=== PATIENT | female | born 1970 | race Caucasian/White ===

== ENCOUNTER 2023-08-12 22:46 | Inpatient (IN) | payer MEDICAID, SELFPAY ==
[2023-08-12 22:29] VITALS: BP 119/64; PULSE 124; RESP 20; O2SAT 97; BMI 38.9
[2023-08-12 22:30] VITALS: BP 103/55; PULSE 124; RESP 20; O2SAT 96
[2023-08-12 22:45] VITALS: BP 106/58; PULSE 125; RESP 23; TEMP 37.1; O2SAT 95
--- NOTE | 2023-08-12 22:57 | HP.PCM.HOS_ITS ---
HPI - General General Date of Admission: 08/12/23 Date of Service: 08/12/23 Chief Complaint: Unable to urinate HPI Narrative YOON ANGLIN, is a 53 F with a significant history of hypertension; diabetes; tobacco abuse and left pyelonephritis 2 months ago who presented to [facility] because she was unable to urinate. Patient reports that a day before presentation to outside hospital she was unable to urinate and her last time she urinated prior to going to [facility] was on 08/11/2023 at about 7 AM. At [facility] an indwelling Mitchell catheter was placed. Urinalysis reportedly was abnormal. Imaging showed left pyonephritis. Associated with patient's symptoms is nausea and chills on 08/10/2023. Further patient reports anorexia. Patient reported being admitted at [facility] 2 months ago for left pyelonephritis. Reportedly patient is a history of ESBL UTI. Patient was diagnosed with sepsis secondary to UTI; acute pyelonephritis and incidental finding of a porcelain gallbladder. Lactic acid at outside hospital was 6.3 and after hydration it went to 6.4. Reportedly his lactic acid dropped into the fives before he was transported from [facility] ED. [facility] Medical History Arthritis Asthma Atypical chest pain Chronic back pain Chronic headaches Depression Diabetes Hypertension Left knee pain Neuropathy Obesity Psoriasis Psoriatic arthritis Right knee DJD Spinal stenosis Home Medications albuterol sulfate 2.5 mg/3 mL (0.083 %) solution for nebulization 2.5 mg inhalation Q4H PRN 07/12/22 [History Last Taken Unknown] albuterol sulfate 90 mcg/actuation aerosol inhaler 2 puff inhalation Q6H PRN asthma 07/12/22 [History Last Taken Unknown] cyclobenzaprine 10 mg tablet 10 mg PO TID PRN 07/12/22 [History Last Taken Unknown] gabapentin 600 mg tablet 600 mg PO BID back pain 07/12/22 [History Last Taken 08/12/23 21:00] hydrocodone 7.5 mg-acetaminophen 325 mg tablet 1 tab PO Q6H PRN back pain 07/12/22 [History Last Taken 08/12/23 21:00] metformin 500 mg tablet 500 mg PO BID diabetes 07/12/22 [History Last Taken Unknown] metoprolol tartrate 25 mg tablet 25 mg PO PRN high blood pressure 07/12/22 [History Last Taken Unknown] insulin glargine 100 unit/mL (3 mL) subcutaneous pen (Lantus Solostar U-100 Insulin) 20 unit subcut QPM diabetes 05/28/23 [History Last Taken Unknown] omeprazole 20 mg tablet,delayed release 20 mg PO BID PRN 05/28/23 [History Last Taken Unknown] lisinopril 10 mg tablet 10 mg PO DAILY blood pressure 08/12/23 [History Last Taken Unknown] loratadine 10 mg tablet 10 mg PO DAILY PRN allergies 08/12/23 [History Last Taken Unknown] Allergy/AdvReac Type Severity Reaction Status Date / Time coconut Allergy Severe Anaphylaxis Verified 05/28/23 10:59 erythromycin base Allergy Intermediate Other Verified 05/28/23 10:59 sulfamethoxazole Allergy Intermediate Other Verified 05/28/23 10:59 codeine Allergy Unknown unknown Verified 05/28/23 10:59 epinephrine Allergy Unknown unknown Verified 05/28/23 10:59 [From Primatene Mist] Family History Father CAD (coronary artery disease) Myocardial infarction, Onset Age: 62 Other Arthritis CVA (cerebral vascular accident) Cancer Hypertension Surgical History History of section Hx of tubal ligation Social History household members: spouse Smoking Status: Current every day smoker tobacco type: cigarettes alcohol intake: current alcohol intake frequency: holidays/special occasions only substance use type: does not use caffeine: Yes Type: coffee Number of servings: 1 ROS ROS Narrative Pertinent positives and pertinent negatives as noted in HPI. All other systems were reviewed and are negative Vital Signs Vital Signs Vital Signs: 08/12/23 22:29 08/12/23 22:30 08/12/23 22:45 Temperature 98.7 F Temperature Source Oral Pulse Rate 124 H 124 H 125 H Respiratory Rate 20 H 20 H 23 H Blood Pressure 119/64 103/55 L 106/58 L Blood Pressure Mean 82 71 74 Blood Pressure Source Monitor Monitor Monitor Blood Pressure Position Semi-Fowlers Semi-Fowlers Semi-Fowlers Blood Pressure Location Right Arm Right Arm Right Arm Pulse Ox 97 96 95 Oxygen Delivery Method Room Air Room Air Room Air Weight Weight: 116.2 kg Body Mass Index (BMI) 38.9 Physical Exam Narrative Physical exam: General: Well-nourished, well-developed. Head: Normocephalic, atraumatic, no tenderness Eyes: Vision is grossly intact. EOMI ENT, no trauma, moist mucous membranes, no rhinorrhea Neck: Nontender, No thyromegaly. CVS: Regular rate and rhythm. S1-S2 present. No murmur, gallop or rub. Respiratory : clear to auscultation bilaterally, chest wall nontender Abdomen: Soft, nontender, nondistended, normal bowel sounds, no masses : Deferred Back: Nontender, no CVA tenderness, no midline spinal tenderness, deformities, step-offs Extremities: Nontender full range of motion, no trauma Skin: Normal color, no trauma, abrasions Neuro: Alert, oriented, cranial nerves II through XII grossly intact. Psychiatry: Normal mood. Normal affect. Not depressed. Not anxious. Assessment & Plan Assessment/Plan (1) Septic shock: PLAN: Plan Septic shock secondary to acute pyelonephritis The patient presented with sepsis due to (infection) with acute sepsis related organ dysfunction as evidenced by (organ dysfunction/s). SIRS criteria: Respiratory rate of more than 20 on admission to the ICU; heart rate more than 90. Lactic acid of 6.3 at outside hospital which increased 6.4. Abnormal urinalysis at the outside hospital. CT of abdomen and pelvis at outside hospital with acute left pyonephritis. Received Merrem at outside hospital. Merrem will be continued for patient history of ESBL E. coli. We will trend CBC and CMP. organ dysfunction: Lactic acidosis with lactic acid of more than 4 which qualifies for septic shock. Creatinine more than 2 or urine output less than 0.5 mL/kg/h for 2 hours Blood culture was obtained at outside hospital, follow. BREONNA Creatinine on presentation at [facility] ED 3.91. Not enough information to determine whether patient has a history of CKD. Review of community records show that on 06/15/2023 patient creatinine was 0.71; on 06/14/2023 creatinine was 1.46; on 06/13/2023 creatinine was 1.89. Received normal fluid bolus at outside hospital ED. With septic shock we will give additional 1 L normal saline bolus to complete 30 MLS per kilogram IV fluids per septic shock protocol. Avoid nephrotoxic's. Trend CMP. History of hypertension Patient with hypertension on presentation. Trend blood pressures hold home blood pressure medication Diabetes mellitus with polyneuropathy Gabapentin continued. Blood glucose elevated at outside hospital. Long-acting insulin continued. Continue correction scale insulin ordered. Tobacco abuse Counseled DVT prophylaxis: Subcu heparin ordered Time spent in the patient's overall evaluation,decision-making process, review of diagnostic data, adjustment of management, discussion with other providers, nursing and ancillary staff involved in patient's care documentation, 72 minutes. Charges/Coding Visit Charges Inpatient E&M: 64383 Init Hosp L3
[2023-08-12 23:00] VITALS: BP 93/53; PULSE 124; RESP 24; TEMP 37.1; O2SAT 96
--- NOTE | 2023-08-12 23:03 | NURSING ---
Pt qualifies for fluid resuscitation per sepsis screen/checklist. Per report, pt received 2 L NS and 1 L LR @ [facility] ED. Dr. Hernandez to order additional fluid bolus to meet goal for pt's weight and d/t current BP of 93/53. notified of last lactic acid result at [place] of 5.1 prior to transport. Blood cultures have been drawn at [place].
[2023-08-12 23:15] VITALS: BP 91/54; PULSE 121; RESP 20; O2SAT 95
[2023-08-12] MEDS: 0.9% Normal Saline (1000mL) 1,000 ML 999 ML IV (23:23)
[2023-08-12 23:30] VITALS: BP 95/74; PULSE 123; RESP 18; O2SAT 94
[2023-08-12] MEDS: 0.9% Normal Saline (1000mL) 1,000 ML 75 ML IV (23:37)
[2023-08-12] MEDS: 0.9% Saline Lock 10 ML Syringe IV (23:37)
[2023-08-13] VITALS (21 sets, daily range): BP systolic 91–147; BP diastolic 42–95; PULSE 110–121; RESP 14–24; TEMP 36.1–37.8; O2SAT 93–96; BMI 39.5
[2023-08-13 03:26] LABS: Absolute Lymphocyte Count 0.81 X10^3/uL (0.83-4.51); Absolute Neutrophil Count 10.9 X10^3/uL (2.0-7.7); Basophil# 0.09 X10^3/uL; Basophil% 0.7 % (0-1); Eosinophil# 0.07 X10^3/uL; Eosinophils% 0.5 % (0-5); Hemoglobin 9.9 g/dL (12.0-15.0); Lymphocyte # 0.81 X10^3/ul (0.83-4.51); Lymphocyte % 6.1 % (19-41); Mean Corp Hgb Conc 31.9 g/dL (32-36); Mean Corpuscular Hgb 28.1 pg (27.0-32.0); Mean Corpuscular Volume 88.1 fL (81-99); Mean Platelet Vol. 11.2 fl (6.2-12.0); Monocyte# 1.04 X10^3/uL; Monocyte% 7.8 % (0-10); NRBC Flagged by Analyzer 0 % (0-5); Neutrophil # 10.89 X10^3/uL (2.7-7.7); Neutrophil % 81.7 % (47-70); POSITIVE COUNT YES; POSITIVE MORPHOLOGY YES; Platelet Count 76 K/mm3 (150-450); RBC Distribution Width CV 14.8 % (11.6-14.6); RBC Distribution Width SD 47.7 fl (35.1-43.9); Red Blood Count 3.52 M/mm3 (4.2-5.4); White Blood Count 13.3 K/mm3 (4.4-11.0)
[2023-08-13 03:31] LABS: Differential Indicated SCAN CRITERIA MET
[2023-08-13 03:40] LABS: ALB/GLOB Ratio 0.4 RATIO (0.9-2.4); AST(SGOT) 19 U/L (15-37); Alanine Aminotransfer ALT/SGPT 11 U/L (13-56); Alkaline Phosphatase 129 U/L (45-117); Anion Gap 11 (5-15); BUN 33 mg/dL (7-18); BUN/Creat Ratio 8.8 RATIO (10-20); Calcium,Total 7.9 mg/dL (8.5-10.1); Chloride 98 mmol/L (98-107); Creatinine, Serum 3.75 mg/dL (0.55-1.02); EST Glomerular Filtration Rate 13 mL/min (>60); Est Glom Filt Rate - Afr Amer 16 mL/min (>60); Globulin 5.4 g/dL (2.2-4.2); Glucose 144 mg/dL (74-106); Potassium 5.1 mmol/L (3.5-5.1); Protein, Total 7.4 g/dL (6.4-8.2); Sodium Level 126 mmol/L (136-145)
[2023-08-13] MEDS: Albuterol Sulfate 8 gm Inhaler (60 puffs) 2 PUFF INHALATION ×4 (03:45→17:38)
[2023-08-13 04:56] LABS: Differential Comment SCANNED
--- NOTE | 2023-08-13 06:55 | CON.PCM.CC_ITS ---
Assessment & Plan Assessment/Plan (1) Septic shock: (2) Diabetes: QUALIFIERS: Diabetes mellitus type: type 2 Diabetes mellitus care home insulin use: with terminal clerk use Diabetes mellitus complication status: with kidney complications Diabetes mellitus complication detail: with other kidney complication Qualified Code(s): E11.29 - Type 2 diabetes mellitus with other diabetic kidney complication; Z79.4 - USP (current) use of insulin (3) Cirrhosis of liver: QUALIFIERS: Hepatic cirrhosis type: unspecified hepatic cirrhosis Ascites presence: without ascites Qualified Code(s): K74.60 - Unspecified cirrhosis of liver PLAN: Plan RECOMMENDATIONS: 1. Continue meropenem pending culture results 2. Initiate contact precautions given previous ESBL 3. Obtain acute hepatitis panel, abdominal ultrasound 4. Consider nephrology consult if creatinine not improving in the next 24 hours 5. Hold heparin given thrombocytopenia 6. Possible transfer out of the intensive care unit later today if blood pressures remain stable IMPRESSIONS: 1. Septic shock secondary to acute pyelonephritis Patient with recent ESBL UTI and normal renal function. Patient presents with possible postobstructive findings with an inability urinate for 24 hours and findings consistent with UTI. Cultures are currently at the outside facility. Patient has been fluid responsive to this point. No pressors have been required. The patient remains relatively stable, could consider transfer out of the intensive care unit this afternoon. Patient should be in contact precautions until ESBL status can be verified. 2. Acute kidney injury secondary to problem #1 Patient with both postobstructive and prerenal etiology suggested by history and presentation. Patient did have a creatinine of 0.72 months ago. Patient's BUN to creatinine ratio suggests intrinsic dysfunction. If not improving in the next 24 hours, would consider nephrology consult. Agree with holding patient's BRIGHT inhibitor. Patient is on appropriate antibiotics. There is no indication for renal replacement therapy at this time, but there is some concern for possible hepatorenal syndrome. 3. Possible new cirrhosis Outside imaging is suggestive of cirrhotic changes of the liver. Patient does have an elevated INR and thrombocytopenia. Will order an acute hepatitis panel and right upper quadrant ultrasound. Could consider a GI consult pending the results. Patient is not showing any signs of variceal bleeding at this time, but hemoglobin is on the lower side. Patient may have an element of [place] 4. Diabetes mellitus with complications Patient with neuropathic pain previously on gabapentin. We will need to watch this closely as patient does have significant renal dysfunction at this time. Patient's long-acting insulin has been continued, but sliding scale will be necessary as p.o. intake may be variable. Blood sugars are appropriate at this time. 5. Tobacco abuse:/Obesity/poor insight Complicates care, management, recovery and prognosis. Patient counseled on smoking cessation, but appears to be precontemplative. Patient would benefit from weight loss. Could consider outpatient evaluation for obstructive sleep apnea, especially given patient's use of narcotics and gabapentin. HPI Consult Data Date of Consult: 08/13/23 HPI Narrative Reason for Consultation: Sepsis HPI Narrative: YOON ANGLIN is a 53 F, with past medical history listed below, who presents to [facility] on 08/12/2023 after presenting to [facility] with an inability to urinate. Patient states that she was recently hospitalized at [facility] 2 months ago secondary to a urinary tract infection. Patient states that she went home and was doing okay. Patient did not have any issues with urination previously. On presentation to the outside ER, patient did have a Mitchell catheter placed showing a highly abnormal urinalysis. Imaging had shown a left pyelonephritis along with cirrhosis and a porcelain gallbladder. Outside documentation is suggestive that the patient had an ESBL E. coli UTI 2 months ago. At the outside emergency department, patient had a lactate of 6.3 that did not respond to fluids. Patient did not have to be initiated on pressors. Patient was admitted to the intensive care unit at [facility]. Patient reports overall she feels subjectively slightly improved. Patient is reporting some leg discomfort described as cramps. Patient is not reporting any abdominal pain. Patient has not had any bleeding complications such as melena, hematochezia, epistaxis or hemoptysis. Patient does report a history of asthma and I believe she uses a as needed albuterol with no maintenance inhaler. Patient is a relatively poor historian. Patient is unaware of any previous issues with renal dysfunction or cirrhosis. Patient is not endorsing a significant alcohol intake, but does smoke on a regular basis. Patient is not aware of any previous diagnosis of sleep apnea. Review of community records show patient did have a normal creatinine in May of 0.71. There does not appear to be any discussion of previous cirrhosis. Review of systems otherwise negative from a constitutional, HEENT, respiratory, cardiovascular, GI, genitourinary, musculoskeletal, skin, neurologic, psychiatric and hematologic system unless stated above. [facility] Medical History Arthritis Asthma Atypical chest pain Chronic back pain Chronic headaches Depression Diabetes Hypertension Left knee pain Neuropathy Obesity Psoriasis Psoriatic arthritis Right knee DJD Spinal stenosis Home Medications albuterol sulfate 2.5 mg/3 mL (0.083 %) solution for nebulization 2.5 mg inhalation Q4H PRN 07/12/22 [History Last Taken Unknown] albuterol sulfate 90 mcg/actuation aerosol inhaler 2 puff inhalation Q6H PRN asthma 07/12/22 [History Last Taken Unknown] cyclobenzaprine 10 mg tablet 10 mg PO TID PRN 07/12/22 [History Last Taken Unknown] gabapentin 600 mg tablet 600 mg PO BID back pain 07/12/22 [History Last Taken 08/12/23 21:00] hydrocodone 7.5 mg-acetaminophen 325 mg tablet 1 tab PO Q6H PRN back pain 07/12/22 [History Last Taken 08/12/23 21:00] metformin 500 mg tablet 500 mg PO BID diabetes 07/12/22 [History Last Taken Unknown] metoprolol tartrate 25 mg tablet 25 mg PO PRN high blood pressure 07/12/22 [History Last Taken Unknown] insulin glargine 100 unit/mL (3 mL) subcutaneous pen (Lantus Solostar U-100 Insulin) 20 unit subcut QPM diabetes 05/28/23 [History Last Taken Unknown] omeprazole 20 mg tablet,delayed release 20 mg PO BID PRN 05/28/23 [History Last Taken Unknown] lisinopril 10 mg tablet 10 mg PO DAILY blood pressure 08/12/23 [History Last Taken Unknown] loratadine 10 mg tablet 10 mg PO DAILY PRN allergies 08/12/23 [History Last Taken Unknown] Allergy/AdvReac Type Severity Reaction Status Date / Time coconut Allergy Severe Anaphylaxis Verified 05/28/23 10:59 erythromycin base Allergy Intermediate Other Verified 05/28/23 10:59 sulfamethoxazole Allergy Intermediate Other Verified 05/28/23 10:59 codeine Allergy Unknown unknown Verified 05/28/23 10:59 epinephrine Allergy Unknown unknown Verified 05/28/23 10:59 [From Primatene Mist] Family History Father CAD (coronary artery disease) Myocardial infarction, Onset Age: 62 Other Arthritis CVA (cerebral vascular accident) Cancer Hypertension Surgical History History of section Hx of tubal ligation Social History household members: spouse Smoking Status: Current every day smoker tobacco type: cigarettes alcohol intake: current alcohol intake frequency: holidays/special occasions only substance use type: does not use caffeine: Yes Type: coffee Number of servings: 1 ROS ROS Narrative See HPI Physical Exam Const alert, oriented x3 and no apparent distress Constitutional Narrative: No conversational dyspnea. Morbidly obese. General Appearance: cooperative and well developed HEENT normocephalic, head/scalp atraumatic and moist oral mucous membranes Eyes PERRL, EOMs intact bilaterally and conjunctivae normal Neck full ROM and no lymphadenopathy Chest inspection of chest normal Resp normal respiratory effort and no use of accessory muscles Effort and Inspection: able to speak in complete sentences Auscultation: clear to auscultation bilaterally; Negative for rales, rhonchi or wheezes Cardio regular rhythm, S1 normal heart sound, S2 normal heart sound, no murmurs, no rub and no gallops Rate: tachycardic GI normal to inspection, nondistended, normoactive bowel sounds, soft to palpation and non-tender GI Narrative: No suprapubic tenderness no CVA tenderness Extremity General Extremity: edema; Negative for clubbing Skin no rashes or lesions noted Neuro oriented x3, CN's II-XII intact bilaterally, moves all extremities and no focal motor deficits Psych cooperative and affect normal Medical Records Data Attestation: I reviewed the patient's medical records Lab / Micro Data Attestation: I reviewed the patient's lab results. 08/13/23 03:09 08/13/23 03:09 Labs: Laboratory Results - last 24 hr 08/13/23 03:09: WBC 13.3 H, RBC 3.52 L, Hgb 9.9 L, Hct 31.0 L, MCV 88.1, MCH 28.1, MCHC 31.9 L, RDW Std Deviation 47.7 H, RDW Coeff of Frannie 14.8 H, Plt Count 76 L, MPV 11.2, Immature Gran % (Auto) 3.200 H, Neut % (Auto) 81.7 H, Lymph % (Auto) 6.1 L, [place] % (Auto) 7.8, Eos % (Auto) 0.5, Baso % (Auto) 0.7, Absolute Neuts (auto) 10.9 H, Absolute Lymphs (auto) 0.81 L, Nucleated RBC % 0, Differential Comment SCANNED, Sodium 126 L, Potassium 5.1, Chloride 98, Carbon Dioxide 17.0 L, Anion Gap 11, BUN 33 H, Creatinine 3.75 H, Estim Creat Clear Calc 17.10, Est GFR (MDRD) Af Amer 16 L, Est GFR (MDRD) Non-Af 13 L, BUN/Cre atinine Ratio 8.8 L, Glucose 144 H, Lactic Acid 5.0 H*, Calcium 7.9 L, Total Bilirubin 1.20 H, AST 19, ALT 11 L, Alkaline Phosphatase 129 H, Total Protein 7.4, Albumin 2.0 L, Globulin 5.4 H, Albumin/Globulin Ratio 0.4 L Rhythm Strip Rhythm Strip: Sinus Tach Rate: 110 Ectopy: None Charges/Coding Visit Charges Inpatient E&M: 67457 Init Hosp L3
--- NOTE | 2023-08-13 07:06 | US_ITS ---
STUDY: ABDOMINAL ULTRASOUND REASON FOR EXAM: Female, 53 years old. Porcelain gallbladder and possible cirrhosis TECHNIQUE: Transabdominal ultrasound was performed with real-time and static anand scale imaging. TECHNICAL QUALITY: Limited. Examination limited due to obesity. COMPARISON: None. FINDINGS: Liver: The liver is enlarged and measures 24 cm. There is a heterogeneous echogenicity of the liver. The bile ducts are within normal limits. There is hepatic color flow. The direction of portal flow is hepatopetal. There is no demonstrated mass lesion. Gallbladder: Normal distended gallbladder. The gallbladder wall measures 4.5 mm. There is a negative sonographic Gastelum''s sign. There is no pericholecystic fluid. There is a solitary echogenic gallstone within the neck of the gallbladder. This stone measures 1.1 cm x 0.9 cm x 0.7 Common Bile Duct (C.B.D.): The common bile duct measures 10.3 mm. Pancreas: There is nonvisualization of the pancreas due to overlying bowel gas. Spleen: There is splenomegaly. The spleen measures 17.8 cm x 8.7 x 6.4 cm. Right Kidney: Normal size of the right kidney. The right kidney measures 13.3 cm x 6.2 cm x 4.9 cm. Normal renal cortex. The right cortex measures 1.6 cm. There is no demonstrated renal mass or cyst. There is no right hydronephrosis. Left Kidney: Normal size of the left kidney. The left kidney measures 13.1 cm x 7 cm x 6.1 cm. Normal renal cortex. The left cortex measures 1.9 cm. There is no demonstrated renal mass or cyst. There is no left hydronephrosis. Aorta: Unremarkable I.V.C.: The IVC is patent. There is no ascites. US/Abdomen Complete IMPRESSION: Hepatomegaly and heterogeneous echotexture of the liver. Splenomegaly. Small gallstone seen in the neck of the gallbladder. Electronically Signed: Jerel Newman MD at 10:35 EDT ,
[2023-08-13 07:14] LABS: Reflex Lactate? Y
--- NOTE | 2023-08-13 07:22 | PCM.PN.HOSP ---
Reason for Visit Reason for Visit: Diagnoses Sepsis, unspecified organism (08/12/23) Severe sepsis with septic shock (08/12/23) Subjective Subjective Feels better, but tired. Objective Data Objective Data Vital Signs: Vital Signs Temp Pulse Resp BP Pulse Ox O2 Del Method 37.1 C 113 H 16 146/86 H 95 Room Air 08/13/23 05:00 08/13/23 07:00 08/13/23 07:00 08/13/23 07:00 08/13/23 07:00 08/13/23 07:00 Oxygen Delivery Method Room Air Weight: 117.9 kg Body Mass Index (BMI) 39.5 Intake & Output: Intake and Output for Last 24 Hours 08/11/23 08/12/23 08/13/23 23:59 23:59 23:59 Intake Total 1350 / 1350 Output Total 200 / 200 125 / 125 Balance -200 / -200 1225 / 1225 Lab / Micro Data 08/13/23 03:09 08/13/23 03:09 Labs: Laboratory Results - last 24 hr 08/13/23 03:09: WBC 13.3 H, RBC 3.52 L, Hgb 9.9 L, Hct 31.0 L, MCV 88.1, MCH 28.1, MCHC 31.9 L, RDW Std Deviation 47.7 H, RDW Coeff of Frannie 14.8 H, Plt Count 76 L, MPV 11.2, Immature Gran % (Auto) 3.200 H, Neut % (Auto) 81.7 H, Lymph % (Auto) 6.1 L, [place] % (Auto) 7.8, Eos % (Auto) 0.5, Baso % (Auto) 0.7, Absolute Neuts (auto) 10.9 H, Absolute Lymphs (auto) 0.81 L, Nucleated RBC % 0, Differential Comment SCANNED, Sodium 126 L, Potassium 5.1, Chloride 98, Carbon Dioxide 17.0 L, Anion Gap 11, BUN 33 H, Creatinine 3.75 H, Estim Creat Clear Calc 17.10, Est GFR (MDRD) Af Amer 16 L, Est GFR (MDRD) Non-Af 13 L, BUN/Creatinine Ratio 8.8 L, Glucose 144 H, Lactic Acid 5.0 H*, Calcium 7.9 L, Total Bilirubin 1.20 H, AST 19, ALT 11 L, Alkaline Phosphatase 129 H, Total Protein 7.4, Albumin 2.0 L, Globulin 5.4 H, Albumin/Globulin Ratio 0.4 L Rhythm Strip Rhythm Strip: Sinus Tach Rate: 110 Ectopy: None Physical Exam Const alert and no apparent distress HEENT head/scalp atraumatic and moist oral mucous membranes Resp normal respiratory effort, no retractions, no use of accessory muscles and clear to auscultation bilaterally Cardio regular rate, regular rhythm, S1 normal heart sound and S2 normal heart sound GI normal to inspection, nondistended, normoactive bowel sounds, soft to palpation, non-tender and non-distended GI Narrative: no CVA tenderness. Assessment & Plan Assessment/Plan (1) Sepsis: QUALIFIERS: Acute renal failure type: unspecified Sepsis acute organ dysfunction status: with acute organ dysfunction Sepsis type: sepsis due to unspecified organism Severe sepsis acute organ dysfunction type: acute renal failure Severe sepsis shock status: without septic shock Qualified Code(s): A41.9 - Sepsis, unspecified organism; R65.20 - Severe sepsis without septic shock; N17.9 - Acute kidney failure, unspecified PLAN: POA SIRS: 3/4 (HR 124, RR 24, WBC 13.3 on admission at [facility]), qSOFA 2 (RR 24, BP w several SBP <100) 2/2 pyelonephritis Lactic acidosis may have been skewed given use of metformin. No documented hypotension, therefore, septic shock ruled out. (2) Pyelonephritis: PLAN: Through [facility]: CT showed left renal enlargement w perinephric and periureteral fat stranding but no evidence of acute urinary obstruction. Findings suggesting pyelonephritis. (additionally porcelain gallbladder) Follow up UCx from OSH. (3) BREONNA (acute kidney injury): PLAN: Through [facility]: Creatinine was 1.09 on 06/15. Continue IVF. Monitor. PLAN: Plan Chronic conditions: HTN: continue metoprolol. hold lisinopril given BREONNA Diabetes mellitus with polyneuropathy: metformin held given BREONNA. Glargine 20 and SSI. Gabapentin dose cut back given BREONNA tobacco abuse: nicotine patch if requested cirrhosis: dc acetaminophen. 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 follow up with general surgery as outpt. DVT prophylaxis: Subcu heparin ordered Transfer to [facility]. Charges/Coding Visit Charges Inpatient E&M: 50986 Subs Hosp L2
[2023-08-13] MEDS: Gabapentin 600 MG Tablet 300 MG PO ×2 (10:16→20:52)
[2023-08-13] MEDS: 0.9% Normal Saline (1000mL) 1,000 ML 150 ML IV ×3 (10:16→23:55)
[2023-08-13] MEDS: Meropenem 500 MG in 0.9% Normal Saline (50mL MB+) 50 ML 100 MG IV (10:16)
[2023-08-13 11:22] LABS: Bedside Glucose 135 mg/dL (74-106)
[2023-08-13 11:46] LABS: Bedside Glucose 127 mg/dL (74-106)
[2023-08-13] MEDS: HYDROCODONE/APAP 7.5-325/15ML 15 ML UDC PO (14:26)
[2023-08-13] MEDS: Ceftriaxone 2 GM in 0.9% Normal Saline (50mL MB+) 50 ML IV (14:27)
[2023-08-13] MEDS: Heparin Injection (Vial) 5,000 UNIT/ML VIAL 5000 UNIT SC ×2 (14:27→20:52)
--- NOTE | 2023-08-13 14:52 | CASEMGMT ---
ROC NOBLE Assessment: Face to Face with pt for initial transition planning/care coordination assessment. ROC NOBLE introduced self and role at [facility], pt voices understanding and consents to assessment. Pt is A&O x4 and answers all questions appropriately at this time. Pt sitting up in bed in no distress. Care providers, pharmacy, and demographics verified/updated. Admitting Dx: acute recurrent left pyelonephritis PCP:Denise in [place], [place] Specialists:Samara, neuro; Becca, ortho; Iván, cardio Preferred Pharmacy: [facility] Insurance: [facility] Prescription Benefit: yes LNOK: Drew Lisette, sig other Living Arrangements: Pt lives with sig other in a mobile home with 5 steps to enter with a rail on both sides. Pt reports she is I in ADL's and denies concerns at home. Transportation: Pt does not drive d/t neuropathy. Pt reports sig other transports her to medical appts. DME:BGM with sufficient supply of lancets and strips, insulin with sufficient supply of needles, cane, walker, w/c HHC/SNF: Pt denies hx of Pt states no concerns with going home at time of dc. Pt states she is being worked up for knee replacements. Denies need for any therapy, states she uses w/c often. Pt states no further concerns/needs. CM to follow. Advised pt to ask CM if any further question/concerns/needs arise, voices understanding. Pt Goal: Home Plan: Home
[2023-08-13 17:15] LABS: Bedside Glucose 140 mg/dL (74-106)
[2023-08-13] MEDS: Pantoprazole Sodium 20 MG Tablet PO (20:51)
[2023-08-13] MEDS: Insulin Glargine-YFGN 100 UNIT/ML Pen 20 UNIT SC (20:53)
[2023-08-13 21:18] LABS: Bedside Glucose 119 mg/dL (74-106)
[2023-08-14] VITALS (7 sets, daily range): BP systolic 104–143; BP diastolic 54–69; PULSE 105–115; RESP 18–22; TEMP 36.2–37.2; O2SAT 94–98; BMI 40.1
[2023-08-14 04:05] LABS: Absolute Lymphocyte Count 0.58 X10^3/uL (0.83-4.51); Absolute Neutrophil Count 9.1 X10^3/uL (2.0-7.7); Basophil# 0.08 X10^3/uL; Basophil% 0.7 % (0-1); Eosinophil# 0.04 X10^3/uL; Eosinophils% 0.4 % (0-5); Hemoglobin 9.4 g/dL (12.0-15.0); Lymphocyte # 0.58 X10^3/ul (0.83-4.51); Lymphocyte % 5.3 % (19-41); Mean Corp Hgb Conc 31.3 g/dL (32-36); Mean Corpuscular Hgb 27.9 pg (27.0-32.0); Mean Platelet Vol. 10.8 fl (6.2-12.0); Monocyte% 9.1 % (0-10); NRBC Flagged by Analyzer 0 % (0-5); Neutrophil # 9.08 X10^3/uL (2.7-7.7); Neutrophil % 82.6 % (47-70); POSITIVE COUNT YES; POSITIVE DIFFERENTIAL YES; POSITIVE MORPHOLOGY YES; Platelet Count 73 K/mm3 (150-450); RBC Distribution Width CV 15.5 % (11.6-14.6); RBC Distribution Width SD 50.6 fl (35.1-43.9); Red Blood Count 3.37 M/mm3 (4.2-5.4)
[2023-08-14 04:07] LABS: Differential Indicated SCAN CRITERIA MET
[2023-08-14 04:21] LABS: Anion Gap 10 (5-15); BUN 41 mg/dL (7-18); BUN/Creat Ratio 12.5 RATIO (10-20); Chloride 102 mmol/L (98-107); Creatinine, Serum 3.27 mg/dL (0.55-1.02); EST Glomerular Filtration Rate 16 mL/min (>60); Est Glom Filt Rate - Afr Amer 19 mL/min (>60); Estimated Creatinine Clearance 19.61 ml/min; Glucose 147 mg/dL (74-106); Potassium 4.9 mmol/L (3.5-5.1); Sodium Level 130 mmol/L (136-145)
[2023-08-14 04:56] LABS: Anisocytosis 1+; Platelet Estimate MOD DEC (ADEQ)
[2023-08-14] MEDS: Heparin Injection (Vial) 5,000 UNIT/ML VIAL 5000 UNIT SC ×3 (05:06→21:13)
[2023-08-14 05:07] LABS: HEPATITIS B SURFACE AG Negative (Negative); Hep C Antibodies Non Reactive (Non Reactive); Hepatitis A IgM Antibody Negative (Negative); Hepatitis B Core AB IgM Negative (Negative)
[2023-08-14] MEDS: 0.9% Normal Saline (1000mL) 1,000 ML 150 ML IV ×3 (05:07→23:42)
--- NOTE | 2023-08-14 07:12 | PCM.PN.HOSP ---
Reason for Visit Reason for Visit: Diagnoses Sepsis, unspecified organism (08/12/23) Type 2 diabetes mellitus with other diabetic kidney complication (08/12/23) Unspecified cirrhosis of liver (08/12/23) Tubulo-interstitial nephritis, not specified as acute or chronic (08/12/23) Acute kidney failure, unspecified (08/12/23) Severe sepsis without septic shock (08/12/23) Severe sepsis with septic shock (08/12/23) group home (current) use of insulin (08/12/23) Subjective Subjective Still tired, but feeling better. Objective Data Objective Data Vital Signs: Vital Signs Temp Pulse Resp BP Pulse Ox O2 Del Method 36.4 C L 110 H 18 111/54 L 94 Room Air 08/14/23 02:00 08/14/23 02:00 08/14/23 02:00 08/14/23 02:00 08/14/23 02:00 08/14/23 02:00 Oxygen Delivery Method Room Air Weight: 119.8 kg Body Mass Index (BMI) 40.1 Intake & Output: Intake and Output for Last 24 Hours 08/12/23 08/13/23 08/14/23 23:59 23:59 23:59 Intake Total 4402.5 / 4402.5 930 / 930 Output Total 200 / 200 500 / 500 525 / 525 Balance -200 / -200 3902.5 / 3902.5 405 / 405 Lab / Micro Data 08/14/23 03:55 08/14/23 03:55 Labs: Laboratory Results - last 24 hr 08/13/23 07:24: Hepatitis A IgM Ab Negative, Hep Bs Antigen Negative, Hep B Core IgM Ab Negative, Hepatitis C Ab (EIA) Non Reactive, Hep C Ab Comment Comment 08/13/23 07:44: POC Glucose 135 H 08/13/23 10:25: Lactic Acid 5.0 H* 08/13/23 11:09: POC Glucose 127 H 08/13/23 16:56: POC Glucose 140 H 08/13/23 20:55: POC Glucose 119 H 08/14/23 03:55: WBC 11.0, RBC 3.37 L, Hgb 9.4 L, Hct 30.0 L, MCV 89.0, MCH 27.9, MCHC 31.3 L, RDW Std Deviation 50.6 H, RDW Coeff of Frannie 15.5 H, Plt Count 73 L, MPV 10.8, Immature Gran % (Auto) 1.900 H, Neut % (Auto) 82.6 H, Lymph % (Auto) 5.3 L, [place] % (Auto) 9.1, Eos % (Auto) 0.4, Baso % (Auto) 0.7, Absolute Neuts (auto) 9.1 H, Absolute Lymphs (auto) 0.58 L, Nucleated RBC % 0, Platelet Estimate MOD DEC, Anisocytosis 1+, Sodium 130 L, Potassium 4.9, Chloride 102, Carbon Dioxide 18.0 L, Anion Gap 10, BUN 41 H, Creatinine 3.27 H, Estim Creat Clear Calc 19.61, Est GFR (MDRD) Af Amer 19 L, Est GFR (MDRD) Non-Af 16 L, BUN/Creatinine Ratio 12.5, Glucose 147 H, Calcium 8.0 L Radiography Diagnostic Testing: Radiology Impression Abdomen Ultrasound 08/13/23 07:06 IMPRESSION: Hepatomegaly and heterogeneous echotexture of the liver. Splenomegaly. Small gallstone seen in the neck of the gallbladder. Electronically Signed: Jerel Newman MD at 10:35 EDT , Rhythm Strip Rhythm Strip: Sinus Tach Rate: 110 Ectopy: None Physical Exam Const alert and no apparent distress HEENT head/scalp atraumatic and moist oral mucous membranes Resp normal respiratory effort, no retractions, no use of accessory muscles and clear to auscultation bilaterally Cardio regular rate, regular rhythm, S1 normal heart sound and S2 normal heart sound GI normal to inspection, nondistended, normoactive bowel sounds, soft to palpation, non-tender and non-distended Assessment & Plan Assessment/Plan (1) Sepsis: QUALIFIERS: Acute renal failure type: unspecified Sepsis acute organ dysfunction status: with acute organ dysfunction Sepsis type: sepsis due to unspecified organism Severe sepsis acute organ dysfunction type: acute renal failure Severe sepsis shock status: without septic shock Qualified Code(s): A41.9 - Sepsis, unspecified organism; R65.20 - Severe sepsis without septic shock; N17.9 - Acute kidney failure, unspecified PLAN: POA SIRS: 3/4 (HR 124, RR 24, WBC 13.3 on admission at [facility]), qSOFA 2 (RR 24, BP w several SBP <100) 2/2 pyelonephritis Lactic acidosis may have been skewed given use of metformin. No documented hypotension, therefore, septic shock ruled out. (2) Pyelonephritis: PLAN: Through [facility]: CT showed left renal enlargement w perinephric and periureteral fat stranding but no evidence of acute urinary obstruction. Findings suggesting pyelonephritis. (additionally porcelain gallbladder) Follow up UCx from OSH thus far showing E >100 k E. coli, sensitivities pending. Continue CTX. (3) BREONNA (acute kidney injury): PLAN: Through [facility]: Creatinine was 1.09 on 06/15. Continue IVF. Monitor. PLAN: Plan Chronic conditions: HTN: continue metoprolol. hold lisinopril given BREONNA Diabetes mellitus with polyneuropathy: metformin held given BREONNA. Glargine 20 and SSI. Gabapentin dose cut back given BREONNA tobacco abuse: nicotine patch if requested cirrhosis: dc acetaminophen. 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 follow up with general surgery as outpt. DVT prophylaxis: Subcu heparin ordered Transfer to [facility]. Charges/Coding Visit Charges Inpatient E&M: 80999 Subs Hosp L2
[2023-08-14] MEDS: HYDROCODONE/APAP 7.5-325/15ML 15 ML UDC PO ×2 (08:48→18:48)
[2023-08-14] MEDS: Lisinopril 10 MG Tablet PO (11:16)
[2023-08-14] MEDS: Ceftriaxone 2 GM in 0.9% Normal Saline (50mL MB+) 50 ML IV (11:16)
[2023-08-14] MEDS: Pantoprazole Sodium 20 MG Tablet PO ×2 (11:16→21:12)
[2023-08-14] MEDS: Gabapentin 600 MG Tablet 300 MG PO ×2 (11:16→21:12)
[2023-08-14] MEDS: Meropenem 1 GM in 0.9% Normal Saline (100mL MB+) 100 ML IV ×2 (13:17→21:12)
[2023-08-14] MEDS: Insulin Glargine-YFGN 100 UNIT/ML Pen 20 UNIT SC (21:21)
[2023-08-14 21:44] LABS: Bedside Glucose 148 mg/dL (74-106)
[2023-08-15 02:00] VITALS: BP 104/48; PULSE 104; RESP 16; TEMP 36.5; O2SAT 94
[2023-08-15 04:16] LABS: Absolute Lymphocyte Count 0.87 X10^3/uL (0.83-4.51); Basophil# 0.06 X10^3/uL; Basophil% 0.7 % (0-1); Eosinophils% 1.1 % (0-5); Hemoglobin 9.5 g/dL (12.0-15.0); Lymphocyte # 0.87 X10^3/ul (0.83-4.51); Lymphocyte % 9.9 % (19-41); Mean Corp Hgb Conc 31.7 g/dL (32-36); Mean Corpuscular Hgb 27.6 pg (27.0-32.0); Mean Corpuscular Volume 87.2 fL (81-99); Mean Platelet Vol. 10.2 fl (6.2-12.0); Monocyte# 0.62 X10^3/uL; NRBC Flagged by Analyzer 0 % (0-5); Neutrophil # 7.02 X10^3/uL (2.7-7.7); Neutrophil % 79.6 % (47-70); POSITIVE COUNT YES; POSITIVE MORPHOLOGY YES; Platelet Count 82 K/mm3 (150-450); RBC Distribution Width CV 15.9 % (11.6-14.6); RBC Distribution Width SD 50.8 fl (35.1-43.9); Red Blood Count 3.44 M/mm3 (4.2-5.4); White Blood Count 8.8 K/mm3 (4.4-11.0)
[2023-08-15 04:17] LABS: Differential Indicated SCAN CRITERIA MET
[2023-08-15 04:32] LABS: Anion Gap 7 (5-15); BUN 45 mg/dL (7-18); Calcium,Total 8.2 mg/dL (8.5-10.1); Chloride 107 mmol/L (98-107); Creatinine, Serum 2.37 mg/dL (0.55-1.02); EST Glomerular Filtration Rate 23 mL/min (>60); Est Glom Filt Rate - Afr Amer 27 mL/min (>60); Estimated Creatinine Clearance 27.06 ml/min; Glucose 134 mg/dL (74-106); Potassium 4.3 mmol/L (3.5-5.1); Sodium Level 134 mmol/L (136-145)
[2023-08-15 05:04] LABS: Differential Comment SCANNED
[2023-08-15] MEDS: Heparin Injection (Vial) 5,000 UNIT/ML VIAL 5000 UNIT SC ×3 (05:10→21:58)
[2023-08-15 05:36] VITALS: BMI 39.9
[2023-08-15] MEDS: 0.9% Normal Saline (1000mL) 1,000 ML 150 ML IV (05:46)
--- NOTE | 2023-08-15 06:54 | PCM.PN.HOSP ---
Reason for Visit Reason for Visit: Diagnoses Sepsis, unspecified organism (08/12/23) Type 2 diabetes mellitus with other diabetic kidney complication (08/12/23) Unspecified cirrhosis of liver (08/12/23) Tubulo-interstitial nephritis, not specified as acute or chronic (08/12/23) Acute kidney failure, unspecified (08/12/23) Severe sepsis without septic shock (08/12/23) Severe sepsis with septic shock (08/12/23) [facility] use of [facility] (08/12/23) Subjective Subjective More somnolent. Has been in bed urinating in the bed. No known individual who may have provided her illicit substance, though there was a neice yesterday, but had no belongings with her. Objective Data Objective Data Vital Signs: Vital Signs Temp Pulse Resp BP Pulse Ox O2 Del Method 36.5 C L 104 H 16 104/48 L 94 Room Air 08/15/23 02:00 08/15/23 02:00 08/15/23 02:00 08/15/23 02:00 08/15/23 02:00 08/15/23 02:00 Oxygen Delivery Method Room Air Weight: 119.1 kg Body Mass Index (BMI) 39.9 Intake & Output: Intake and Output for Last 24 Hours 08/13/23 08/14/23 08/15/23 23:59 23:59 23:59 Intake Total 4402.5 / 4402.5 3022.5 / 3022.5 1030 / 1030 Output Total 500 / 500 1325 / 1325 100 / 100 Balance 3902.5 / 3902.5 1697.5 / 1697.5 930 / 930 Lab / Micro Data 08/15/23 04:00 08/15/23 04:00 Labs: Laboratory Results - last 24 hr 08/14/23 21:21: POC Glucose 148 H 08/15/23 04:00: WBC 8.8, RBC 3.44 L, Hgb 9.5 L, Hct 30.0 L, MCV 87.2, MCH 27.6, MCHC 31.7 L, RDW Std Deviation 50.8 H, RDW Coeff of Frannie 15.9 H, Plt Count 82 L, MPV 10.2, Immature Gran % (Auto) 1.700 H, Neut % (Auto) 79.6 H, Lymph % (Auto) 9.9 L, [place] % (Auto) 7.0, Eos % (Auto) 1.1, Baso % (Auto) 0.7, Absolute Neuts (auto) 7.0, Absolute Lymphs (auto) 0.87, Nucleated RBC % 0, Differential Comment SCANNED, Sodium 134 L, Potassium 4.3, Chloride 107, Carbon Dioxide 20.0 L, Anion Gap 7, BUN 45 H, Creatinine 2.37 H, Estim Creat Clear Calc 27.06, Est GFR (MDRD) Af Amer 27 L, Est GFR (MDRD) Non-Af 23 L, BUN/Creatinine Ratio 19.0, Glucose 134 H, Calcium 8.2 L Rhythm Strip Rhythm Strip: Sinus Tach Rate: 110 Ectopy: None Physical Exam Const no apparent distress Orientation / Consciousness: confused Resp normal respiratory effort, no retractions, no use of accessory muscles and clear to auscultation bilaterally Cardio regular rate, regular rhythm, S1 normal heart sound and S2 normal heart sound GI normal to inspection, nondistended, normoactive bowel sounds, soft to palpation, non-tender and non-distended Assessment & Plan Assessment/Plan (1) Sepsis: QUALIFIERS: Acute renal failure type: unspecified Sepsis acute organ dysfunction status: with acute organ dysfunction Sepsis type: sepsis due to unspecified organism Severe sepsis acute organ dysfunction type: acute renal failure Severe sepsis shock status: without septic shock Qualified Code(s): A41.9 - Sepsis, unspecified organism; R65.20 - Severe sepsis without septic shock; N17.9 - Acute kidney failure, unspecified PLAN: POA SIRS: 3/4 (HR 124, RR 24, WBC 13.3 on admission at [facility]), qSOFA 2 (RR 24, BP w several SBP <100) 2/2 pyelonephritis Lactic acidosis may have been skewed given use of metformin. No documented hypotension, therefore, septic shock ruled out. (2) Pyelonephritis: PLAN: Through [facility]: CT showed left renal enlargement w perinephric and periureteral fat stranding but no evidence of acute urinary obstruction. Findings suggesting pyelonephritis. (additionally porcelain gallbladder) Follow up UCx from OSH thus far showing E >100 k E. coli, sensitivities pending. Continue CTX. (3) BREONNA (acute kidney injury): PLAN: Through [facility]: Creatinine was 1.09 on 06/15. Continue IVF. Monitor. (4) Encephalopathy: PLAN: concern for polypharmacy hold gabapentin for somnolence. If persists may need additional testing. PLAN: Plan Chronic conditions: HTN: continue metoprolol. hold lisinopril given BREONNA Diabetes mellitus with polyneuropathy: metformin held given BREONNA. Glargine 20 and SSI. Gabapentin dose cut back given BREONNA tobacco abuse: nicotine patch if requested cirrhosis: dc acetaminophen. 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 follow up with general surgery as outpt. DVT prophylaxis: Subcu heparin ordered Charges/Coding Visit Charges Inpatient E&M: 55388 Subs Hosp L2
[2023-08-15 08:00] VITALS: BP 114/79; PULSE 110; RESP 18; TEMP 36.9; O2SAT 93
[2023-08-15 08:29] LABS: Bedside Glucose 121 mg/dL (74-106)
[2023-08-15] MEDS: Gabapentin 600 MG Tablet 300 MG PO (09:34)
[2023-08-15] MEDS: Meropenem 1 GM in 0.9% Normal Saline (100mL MB+) 100 ML IV ×2 (09:34→21:54)
[2023-08-15] MEDS: Lisinopril 10 MG Tablet PO (09:34)
[2023-08-15] MEDS: Pantoprazole Sodium 20 MG Tablet PO ×2 (09:34→21:58)
--- NOTE | 2023-08-15 13:17 | CON.PCM.ID_ITS ---
Assessment & Plan Assessment/Plan (1) Encephalopathy: (2) Pyelonephritis: (3) Sepsis: QUALIFIERS: Sepsis type: sepsis due to unspecified organism Sepsis acute organ dysfunction status: with acute organ dysfunction Severe sepsis acute organ dysfunction type: acute renal failure Acute renal failure type: unspecified Severe sepsis shock status: without septic shock Qualified Code(s): A41.9 - Sepsis, unspecified organism; R65.20 - Severe sepsis without s eptic shock; N17.9 - Acute kidney failure, unspecified PLAN: sepsis due to esbl ecoli bacteremia from pyelo - on meropenem, BREONNA improving, no stone/hydro/abscess seen on kidney imaging. Reviewed [place] records. Will check repeat bcx. Will follow, thank you (4) Cirrhosis of liver: QUALIFIERS: Hepatic cirrhosis type: unspecified hepatic cirrhosis Ascites presence: without ascites Qualified Code(s): K74.60 - Unspecified cirrhosis of liver (5) Bacteremia due to Escherichia coli: HPI Consult Data Date of Consult: 08/15/23 HPI Narrative Reason for Consultation: pyelo HPI Narrative: YOON ANGLIN, is a 53 F who presented to [facility] then transferred to [facility] for several days decreased UOP, progressive confusion, chills, nausea. Per family, had been dealing with uti for a few weeks without improvement. Pt c/o lower back pain. Admitted here on meropenem. Full ROS performed and neg except as noted above. [facility] Medical History Arthritis Asthma Atypical chest pain Chronic back pain Chronic headaches Depression Diabetes Hypertension Left knee pain Neuropathy Obesity Psoriasis Psoriatic arthritis Right knee DJD Spinal stenosis Home Medications albuterol sulfate 2.5 mg/3 mL (0.083 %) solution for nebulization 2.5 mg inhalation Q4H PRN 07/12/22 [History Last Taken Unknown] albuterol sulfate 90 mcg/actuation aerosol inhaler 2 puff inhalation Q6H PRN asthma 07/12/22 [History Last Taken Unknown] cyclobenzaprine 10 mg tablet 10 mg PO TID PRN 07/12/22 [History Last Taken Unknown] gabapentin 600 mg tablet 600 mg PO BID back pain 07/12/22 [History Last Taken 08/12/23 21:00] hydrocodone 7.5 mg-acetaminophen 325 mg tablet 1 tab PO Q6H PRN back pain 07/12/22 [History Last Taken 08/12/23 21:00] metformin 500 mg tablet 500 mg PO BID diabetes 07/12/22 [History Last Taken Unknown] metoprolol tartrate 25 mg tablet 25 mg PO PRN high blood pressure 07/12/22 [History Last Taken Unknown] insulin glargine 100 unit/mL (3 mL) subcutaneous pen (Lantus Solostar U-100 Insulin) 20 unit subcut QPM diabetes 05/28/23 [History Last Taken Unknown] omeprazole 20 mg tablet,delayed release 20 mg PO BID PRN 05/28/23 [History Last Taken Unknown] lisinopril 10 mg tablet 10 mg PO DAILY blood pressure 08/12/23 [History Last Taken Unknown] loratadine 10 mg tablet 10 mg PO DAILY PRN allergies 08/12/23 [History Last Taken Unknown] Allergy/AdvReac Type Severity Reaction Status Date / Time coconut Allergy Severe Anaphylaxis Verified 05/28/23 10:59 erythromycin base Allergy Intermediate Other Verified 05/28/23 10:59 sulfamethoxazole Allergy Intermediate Other Verified 05/28/23 10:59 codeine Allergy Unknown unknown Verified 05/28/23 10:59 epinephrine Allergy Unknown unknown Verified 05/28/23 10:59 [From Primatene Mist] Family History Father CAD (coronary artery disease) Myocardial infarction, Onset Age: 62 Other Arthritis CVA (cerebral vascular accident) Cancer Hypertension Surgical History History of section Hx of tubal ligation Social History household members: spouse Smoking Status: Current every day smoker tobacco type: cigarettes alcohol intake: current alcohol intake frequency: holidays/special occasions only substance use type: does not use caffeine: Yes Type: coffee Number of servings: 1 Physical Exam Const alert, oriented x3 and no apparent distress General Appearance: lethargic HEENT normocephalic and head/scalp atraumatic Eyes PERRL and EOMs intact bilaterally Neck supple and No nodes Resp normal air movement and clear to auscultation bilaterally Cardio Rate: tachycardic GI soft to palpation, non-tender and non-distended Extremity General Extremity: edema Skin no rashes or lesions noted Neuro CN's II-XII intact bilaterally Lab / Micro Data Attestation: I reviewed the patient's lab results. 08/15/23 04:00 08/15/23 04:00 Labs: Laboratory Results - last 24 hr 08/14/23 21:21: POC Glucose 148 H 08/15/23 04:00: WBC 8.8, RBC 3.44 L, Hgb 9.5 L, Hct 30.0 L, MCV 87.2, MCH 27.6, MCHC 31.7 L, RDW Std Deviation 50.8 H, RDW Coeff of Frannie 15.9 H, Plt Count 82 L, MPV 10.2, Immature Gran % (Auto) 1.700 H, Neut % (Auto) 79.6 H, Lymph % (Auto) 9.9 L, [place] % (Auto) 7.0, Eos % (Auto) 1.1, Baso % (Auto) 0.7, Absolute Neuts (auto) 7.0, Absolute Lymphs (auto) 0.87, Nucleated RBC % 0, Differential Comment SCANNED, Sodium 134 L, Potassium 4.3, Chloride 107, Carbon Dioxide 20.0 L, Anion Gap 7, BUN 45 H, Creatinine 2.37 H, Estim Creat Clear Calc 27.06, Est GFR (MDRD) Af Amer 27 L, Est GFR (MDRD) Non-Af 23 L, BUN/Creatinine Ratio 19.0, Glucose 134 H, Calcium 8.2 L 08/15/23 08:08: POC Glucose 121 H Rhythm Strip Rhythm Strip: Sinus Tach Rate: 110 Ectopy: None
[2023-08-15 14:00] VITALS: BP 147/76; PULSE 113; RESP 22; TEMP 37.1
[2023-08-15 20:00] VITALS: BP 169/72; PULSE 120; RESP 22; TEMP 37.2; O2SAT 93
[2023-08-15] MEDS: 0.9% Normal Saline (250mL Bag) 250 ML 15 ML IV (21:58)
[2023-08-15 23:00] VITALS: BP 143/98; PULSE 105; RESP 18; TEMP 36.6; O2SAT 91
[2023-08-15] MEDS: Lactulose 20 GM/30 ML UDC PO (23:07)
[2023-08-15 23:44] LABS: Ammonia < 10.0 umol/L (11-32)
[2023-08-16] VITALS (15 sets, daily range): BP systolic 126–154; BP diastolic 73–89; PULSE 96–117; RESP 16–22; TEMP 36–36.8; O2SAT 90–95; BMI 40.6
[2023-08-16] MEDS: Heparin Injection (Vial) 5,000 UNIT/ML VIAL 5000 UNIT SC ×3 (05:35→22:16)
--- NOTE | 2023-08-16 07:23 | PCM.PN.HOSP ---
Reason for Visit Reason for Visit: Diagnoses Sepsis, unspecified organism (08/12/23) Unspecified Escherichia coli [E. coli] as the cause of diseases classified elsewhere (08/12/23) Type 2 diabetes mellitus with other diabetic kidney complication (08/12/23) Encephalopathy, unspecified (08/12/23) Unspecified cirrhosis of liver (08/12/23) Tubulo-interstitial nephritis, not specified as acute or chronic (08/12/23) Acute kidney failure, unspecified (08/12/23) Severe sepsis without septic shock (08/12/23) Severe sepsis with septic shock (08/12/23) Bacteremia (08/12/23) [facility] (current) use of insulin (08/12/23) Subjective Subjective Still groggy. Step-daughter present and confirms that the patient is not at baseline. Objective Data Objective Data Vital Signs: Vital Signs Temp Pulse Resp BP Pulse Ox O2 Del Method O2 Flow Rate 36.0 C L 110 H 19 H 148/79 H 95 Nasal Cannula 4 08/16/23 07:00 08/16/23 07:00 08/16/23 07:00 08/16/23 07:00 08/16/23 07:00 08/16/23 07:00 08/16/23 07:00 Oxygen Flow Rate (L/min) 4 Oxygen Delivery Method Nasal Cannula Weight: 121.2 kg Body Mass Index (BMI) 40.6 Intake & Output: Intake and Output for Last 24 Hours 08/14/23 08/15/23 08/16/23 23:59 23:59 23:59 Intake Total 3022.5 / 3022.5 1827.5 / 1827.5 120 / 120 Output Total 1325 / 1325 1700 / 1700 700 / 700 Balance 1697.5 / 1697.5 127.5 / 127.5 -580 / -580 Lab / Micro Data 08/15/23 04:00 08/16/23 08:10 Labs: Laboratory Results - last 24 hr 08/15/23 08:08: POC Glucose 121 H 08/15/23 23:00: Ammonia < 10.0 L Rhythm Strip Rhythm Strip: Sinus Tach Rate: 110 Ectopy: None Physical Exam Const no apparent distress Constitutional Narrative: groggy. Resp normal respiratory effort, no retractions, no use of accessory muscles and clear to auscultation bilaterally Cardio regular rate, regular rhythm, S1 normal heart sound and S2 normal heart sound GI normal to inspection, nondistended, normoactive bowel sounds and soft to palpation Assessment & Plan Assessment/Plan (1) Sepsis: QUALIFIERS: Acute renal failure type: unspecified Sepsis acute organ dysfunction status: with acute organ dysfunction Sepsis type: sepsis due to unspecified organism Severe sepsis acute organ dysfunction type: acute renal failure Severe sepsis shock status: without septic shock Qualified Code(s): A41.9 - Sepsis, unspecified organism; R65.20 - Severe sepsis without septic shock; N17.9 - Acute kidney failure, unspecified PLAN: POA SIRS: 3/4 (HR 124, RR 24, WBC 13.[address] [facility]), qSOFA 2 (RR 24, BP w several SBP <100) 2/2 pyelonephritis Lactic acidosis may have been skewed given use of metformin. No documented hypotension, therefore, septic shock ruled out. (2) Pyelonephritis: PLAN: Through [facility]: CT showed left renal enlargement w perinephric and periureteral fat stranding but no evidence of acute urinary obstruction. Findings suggesting pyelonephritis. (additionally porcelain gallbladder) Follow up UCx from OSH thus far showing E >100 k E. coli, sensitivities pending. Continue CTX. (3) BREONNA (acute kidney injury): PLAN: Through [facility]: Creatinine was 1.09 on 06/15. Continue IVF. Monitor. (4) Encephalopathy: PLAN: concern for polypharmacy hold gabapentin for somnolence. If persists may need additional testing. Ammonia WNL Check UDS, head CT. (5) Bacteremia due to Escherichia coli: PLAN: BCID at OSH showing abnormality for E. coli and enterobacterales BCx drawn and pending. No direct blood cultures available in [facility] from OSH. PLAN: Plan Chronic conditions: HTN: continue metoprolol. hold lisinopril given BREONNA Diabetes mellitus with polyneuropathy: metformin held given BREONNA. Glargine 20 and SSI. Gabapentin dose cut back given BREONNA tobacco abuse: nicotine patch if requested cirrhosis: dc acetaminophen. 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 follow up with general surgery as outpt. DVT prophylaxis: Subcu heparin ordered Charges/Coding Visit Charges Inpatient E&M: 16678 Subs Hosp L2
--- NOTE | 2023-08-16 08:05 | RAD_ITS ---
STUDY: X-RAY CHEST REASON FOR EXAM: Female, 53 years old. respiratory distress. TECHNIQUE: Single AP portable view of the chest. COMPARISON: None. FINDINGS: The lungs are clear and expanded. There is no demonstrated pleural abnormality. Normal size heart. Normal mediastinum and anisa. Normal visualized pulmonary arteries. Normal visualized aortic arch and descending thoracic aorta. Normal visualized thoracic spine. Normal visualized ribs, clavicles, and shoulders. There is no demonstrated abnormality of the visualized soft tissue structures of the upper abdomen. RAD/Chest 1 View (Portable) IMPRESSION: Normal x-ray examination of the chest. Electronically Signed: Jose Goyal MD at 9:17 EDT ,
[2023-08-16 08:35] LABS: Anion Gap 6 (5-15); BUN 36 mg/dL (7-18); BUN/Creat Ratio 27.1 RATIO (10-20); Chloride 112 mmol/L (98-107); Creatinine, Serum 1.33 mg/dL (0.55-1.02); EST Glomerular Filtration Rate 44 mL/min (>60); Est Glom Filt Rate - Afr Amer 53 mL/min (>60); Estimated Creatinine Clearance 48.21 ml/min; Glucose 151 mg/dL (74-106); Potassium 4.6 mmol/L (3.5-5.1); Sodium Level 137 mmol/L (136-145)
[2023-08-16] MEDS: Pantoprazole Sodium 20 MG Tablet PO ×2 (08:42→22:16)
[2023-08-16] MEDS: Metoprolol Tartrate 25 MG Tablet PO ×2 (08:42→22:16)
[2023-08-16] MEDS: Lisinopril 10 MG Tablet PO (08:42)
[2023-08-16] MEDS: 0.9% Saline Lock 10 ML Syringe IV (08:44)
[2023-08-16] MEDS: Meropenem 1 GM in 0.9% Normal Saline (100mL MB+) 100 ML IV ×2 (10:41→22:17)
[2023-08-16] MEDS: Albuterol 2.5 MG/3 ML VIAL.NEB. INHALATION (15:12)
[2023-08-17] VITALS (7 sets, daily range): BP systolic 140–153; BP diastolic 64–86; PULSE 88–98; RESP 16–20; TEMP 36.6–36.9; O2SAT 94–98
[2023-08-17] MEDS: HYDROCODONE/APAP 7.5-325/15ML 15 ML UDC PO (02:02)
[2023-08-17] MEDS: Heparin Injection (Vial) 5,000 UNIT/ML VIAL 5000 UNIT SC ×3 (04:58→21:35)
[2023-08-17 06:58] LABS: Absolute Lymphocyte Count 1.27 X10^3/uL (0.83-4.51); Absolute Neutrophil Count 6.1 X10^3/uL (2.0-7.7); Basophil# 0.04 X10^3/uL; Basophil% 0.5 % (0-1); Eosinophil# 0.13 X10^3/uL; Eosinophils% 1.5 % (0-5); Hematocrit 29.5 % (37-47); Hemoglobin 9.3 g/dL (12.0-15.0); Lymphocyte # 1.27 X10^3/ul (0.83-4.51); Mean Corp Hgb Conc 31.5 g/dL (32-36); Mean Corpuscular Hgb 27.8 pg (27.0-32.0); Mean Corpuscular Volume 88.3 fL (81-99); Mean Platelet Vol. 10.9 fl (6.2-12.0); Monocyte# 0.81 X10^3/uL; Monocyte% 9.5 % (0-10); NRBC Flagged by Analyzer 0 % (0-5); Neutrophil # 6.06 X10^3/uL (2.7-7.7); Neutrophil % 71.4 % (47-70); POSITIVE COUNT YES; Platelet Count 75 K/mm3 (150-450); RBC Distribution Width CV 16.3 % (11.6-14.6); RBC Distribution Width SD 52.3 fl (35.1-43.9); Red Blood Count 3.34 M/mm3 (4.2-5.4); White Blood Count 8.5 K/mm3 (4.4-11.0)
[2023-08-17 07:22] LABS: Anion Gap 7 (5-15); BUN 31 mg/dL (7-18); BUN/Creat Ratio 30.7 RATIO (10-20); Calcium,Total 8.2 mg/dL (8.5-10.1); Chloride 112 mmol/L (98-107); Creatinine, Serum 1.01 mg/dL (0.55-1.02); EST Glomerular Filtration Rate 60 mL/min (>60); Est Glom Filt Rate - Afr Amer 73 mL/min (>60); Estimated Creatinine Clearance 63.49 ml/min; Glucose 140 mg/dL (74-106); Potassium 4.3 mmol/L (3.5-5.1); Sodium Level 136 mmol/L (136-145)
--- NOTE | 2023-08-17 08:00 | PN.HOSP_ITS ---
Reason for Visit Reason for Visit: Diagnoses Sepsis, unspecified organism (08/12/23) Unspecified Escherichia coli [E. coli] as the cause of diseases classified elsewhere (08/12/23) Type 2 diabetes mellitus with other diabetic kidney complication (08/12/23) Encephalopathy, unspecified (08/12/23) Unspecified cirrhosis of liver (08/12/23) Tubulo-interstitial nephritis, not specified as acute or chronic (08/12/23) Acute kidney failure, unspecified (08/12/23) Severe sepsis without septic shock (08/12/23) Severe sepsis with septic shock (08/12/23) Bacteremia (08/12/23) longterm (current) use of insulin (08/12/23) Subjective Subjective Complaining of knee pain. Objective Data Objective Data Vital Signs: Vital Signs Temp Pulse Resp BP Pulse Ox O2 Del Method O2 Flow Rate 36.9 C 98 16 146/86 H 94 Room Air 4 08/17/23 02:01 08/17/23 02:01 08/17/23 02:01 08/17/23 02:01 08/17/23 02:01 08/17/23 02:01 08/16/23 07:00 Oxygen Flow Rate (L/min) 4 Oxygen Delivery Method Room Air Weight: 121.2 kg Body Mass Index (BMI) 40.6 Intake & Output: Intake and Output for Last 24 Hours 08/15/23 08/16/23 08/17/23 23:59 23:59 23:59 Intake Total 1827.5 / 1827.5 923.50 / 1023.50 320 / 320 Output Total 1700 / 1700 1400 / 1850 850 / 850 Balance 127.5 / 127.5 -476.50 / -826.50 -530 / -530 Lab / Micro Data 08/17/23 05:46 08/17/23 05:46 Labs: Laboratory Results - last 24 hr 08/16/23 08:10: Sodium 137, Potassium 4.6, Chloride 112 H, Carbon Dioxide 19.0 L , Anion Gap 6, BUN 36 H, Creatinine 1.33 H, Estim Creat Clear Calc 48.21, Est GFR (MDRD) Af Amer 53 L, Est GFR (MDRD) Non-Af 44 L, BUN/Creatinine Ratio 27.1 H , Glucose 151 H, Calcium 8.0 L 08/17/23 05:46: WBC 8.5, RBC 3.34 L, Hgb 9.3 L, Hct 29.5 L, MCV 88.3, MCH 27.8, MCHC 31.5 L, RDW Std Deviation 52.3 H, RDW Coeff of Frannie 16.3 H, Plt Count 75 L, MPV 10.9, Immature Gran % (Auto) 2.100 H, Neut % (Auto) 71.4 H, Lymph % (Auto) 15.0 L, [place] % (Auto) 9.5, Eos % (Auto) 1.5, Baso % (Auto) 0.5, Absolute Neuts (auto) 6.1, Absolute Lymphs (auto) 1.27, Nucleated RBC % 0, Sodium 136, Potassium 4.3, Chloride 112 H, Carbon Dioxide 17.0 L, Anion Gap 7, BUN 31 H, Creatinine 1.01, Estim Creat Clear Calc 63.49, Est GFR (MDRD) Af Amer 73, Est GFR (MDRD) Non-Af 60, BUN/Creatinine Ratio 30.7 H, Glucose 140 H, Calcium 8.2 L Micro: Microbiology 08/15/23 13:30 Blood Culture (Wb) - Anticubital Right Blood Culture - Preliminary Radiography Diagnostic Testing: Radiology Impression Chest X-Ray 08/16/23 08:05 IMPRESSION: Normal x-ray examination of the chest. Electronically Signed: Jose Goyal MD at 9:17 EDT Reading Location ID and State: [address] [place] [address] , Service support , Rhythm Strip Rhythm Strip: Sinus Tach Rate: 110 Ectopy: None Physical Exam Const Constitutional Narrative: up in bed. confused, but improved from 08/16. Saying her knee hurt, saying this one indicating her left. I asked her to say the side twice, but did not say left but this one again. Resp normal respiratory effort, no retractions, no use of accessory muscles and clear to auscultation bilaterally Cardio regular rate, regular rhythm, S1 normal heart sound and S2 normal heart sound GI normal to inspection, nondistended, normoactive bowel sounds Extremity Extremity Narrative: bilateral knee pain. No effusion. Not painful when distracted. Assessment & Plan Assessment/Plan (1) Sepsis: QUALIFIERS: Acute renal failure type: unspecified Sepsis acute organ dysfunction status: with acute organ dysfunction Sepsis type: sepsis due to unspecified organism Severe sepsis acute organ dysfunction type: acute renal failure Severe sepsis shock status: without septic shock Qualified Code(s): A41.9 - Sepsis, unspecified organism; R65.20 - Severe sepsis without septic shock; N17.9 - Acute kidney failure, unspecified PLAN: POA SIRS: 3/4 (HR 124, RR 24, WBC 13.3 on admission at [facility]), qSOFA 2 (RR 24, BP w several SBP <100) 2/2 pyelonephritis Lactic acidosis may have been skewed given use of metformin. No documented hypotension, therefore, septic shock ruled out. (2) Pyelonephritis: PLAN: Through [facility]: CT showed left renal enlargement w perinephric and periureteral fat stranding but no evidence of acute urinary obstruction. Findi ngs suggesting pyelonephritis. (additionally porcelain gallbladder) Follow up UCx from OSH thus far showing E >100 k E. coli, sensitivities pending. Continue CTX. (3) BREONNA (acute kidney injury): PLAN: Through [facility]: Creatinine was 1.09 on 06/15. Continue IVF. Monitor. (4) Encephalopathy: PLAN: ongoing Continue to hold gabapentin for somnolence. Has not taken cyclobenzaprine in days, so not the culprit, but will discontinue. DC [place]. Ammonia WNL Check head CT, UDS. (5) Bacteremia due to Escherichia coli: PLAN: BCID at OSH showing abnormality for E. coli and enterobacterales No direct blood cultures available in [facility] from OSH. BCx drawn on 08/16 showing 1/2 for GPC. May be contaminant. (6) Knee pain: PLAN: bilateral Benign exam. Check xrays. Check CPK. PLAN: Plan Chronic conditions: * HTN: continue metoprolol. hold lisinopril given BREONNA * Diabetes mellitus with polyneuropathy: metformin held given BREONNA. Glargine 20 and SSI. Gabapentin dose cut back given BREONNA * tobacco abuse: nicotine patch if requested * cirrhosis: dc acetaminophen. 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 follow up with general surgery as outpt. DVT prophylaxis: Subcu heparin ordered Charges/Coding Visit Charges Inpatient E&M: 04380 Subs Hosp L2
[2023-08-17] MEDS: Lisinopril 10 MG Tablet PO (08:24)
[2023-08-17] MEDS: Pantoprazole Sodium 20 MG Tablet PO ×2 (08:25→21:38)
[2023-08-17] MEDS: Metoprolol Tartrate 25 MG Tablet PO ×2 (08:25→21:38)
--- NOTE | 2023-08-17 11:59 | CT_ITS ---
STUDY: CT BRAIN WITHOUT CONTRAST REASON FOR EXAM: Female, 53 years old. confusion RADIATION DOSAGE (If Supplied By Facility): CTDIvol = ( 44.99 ) mGy, DLP = ( 1794.69 ) mGycm TECHNIQUE: Transaxial CT imaging of the brain was performed without administration of intravenous contrast material. Individualized dose optimization techniques were used for this CT. COMPARISON: No relevant priors. FINDINGS: Normal soft tissue structures. Normal calvarium. Normal size ventricles and extra-axial spaces for the patient''s age. Normal white matter tracts of the cerebral hemispheres. Normal basal ganglia and thalami. Normal brainstem. Normal cerebellum. There is no intracranial hemorrhage. There are no findings of an acute ischemic infarction. Normal visualized paranasal sinuses. CT/Brain/Head without Contrast IMPRESSION: Normal unenhanced CT scan of the brain. Electronically Signed: Amair Glez MD at 13:17 EDT ,
--- NOTE | 2023-08-17 12:25 | RAD_ITS ---
STUDY: X-RAY - RIGHT KNEE REASON FOR EXAM: Female, 53 years old. bilateral knee pain TECHNIQUE: 2 view(s) of the knee. COMPARISON: None. FINDINGS: Normal visualized distal femur. Normal visualized proximal tibia and fibula. Normal proximal tibiofibular articulation. There is moderate degenerative arthrosis of the medial femorotibial compartment with moderate joint space narrowing. There is moderate degenerative arthrosis of the lateral femorotibial compartment with moderate joint space narrowing. There is mild degenerative arthrosis of the patellofemoral articulation. The soft tissue structures are unremarkable. RAD/Knee 1 or 2 Views IMPRESSION: Degenerative arthrosis. Electronically Signed: Aamir Glez MD at 13:14 EDT ,
--- NOTE | 2023-08-17 12:25 | RAD_ITS ---
STUDY: X-RAY - LEFT KNEE REASON FOR EXAM: Female, 53 years old. PAIN TECHNIQUE: 2 view(s) of the knee. COMPARISON: 01/15/2023 FINDINGS: Normal visualized distal femur. Normal visualized proximal tibia and fibula. Normal proximal tibiofibular articulation. There is moderate degenerative arthrosis of the medial femorotibial compartment with moderate joint space narrowing. There is moderate degenerative arthrosis of the lateral femorotibial compartment with moderate joint space narrowing. There is moderate degenerative arthrosis of the patellofemoral articulation. Multiple calcified bodies within the knee joint. The soft tissue structures are unremarkable. RAD/Knee 1 or 2 Views IMPRESSION: Moderate arthrosis with multiple calcified bodies. Electronically Signed: Aamir Glez MD at 13:13 EDT ,
[2023-08-17 12:29] LABS: CPK Total, Creatine Kinase 26 U/L (26-192)
[2023-08-17] MEDS: Meropenem 1 GM in 0.9% Normal Saline (100mL MB+) 100 ML IV ×2 (12:43→22:35)
[2023-08-17] MEDS: 0.9% Saline Lock 10 ML Syringe IV ×2 (12:43→22:35)
[2023-08-17 13:38] LABS: Amphetamine Urine VISTA NEGATIVE (<1000 ng/mL); Barbiturate Urine VISTA NEGATIVE (< 200 ng/mL); Benzodiazepine Urine VISTA NEGATIVE (< 200 ng/mL); Cocaine Urine VISTA NEGATIVE (< 300 ng/mL); Ecstacy Urine VISTA NEGATIVE (< 500 ng/mL); Methadone Urine VISTA NEGATIVE (< 300 ng/mL); PCP Urine VISTA NEGATIVE (< 25 ng/mL); THC Urine VISTA NEGATIVE (< 50 ng/mL); Vista UDS pH Range 6
[2023-08-17 16:28] LABS: Bedside Glucose 205 mg/dL (74-106)
[2023-08-17 22:01] LABS: Bedside Glucose 178 mg/dL (74-106)
[2023-08-18 05:07] VITALS: BP 164/84; PULSE 94; RESP 18; TEMP 37; O2SAT 96
[2023-08-18 06:00] VITALS: BMI 39.2
[2023-08-18] MEDS: Meropenem 1 GM in 0.9% Normal Saline (100mL MB+) 100 ML IV (06:48)
[2023-08-18] MEDS: 0.9% Saline Lock 10 ML Syringe IV (06:49)
[2023-08-18 06:53] LABS: Absolute Lymphocyte Count 1.24 X10^3/uL (0.83-4.51); Basophil# 0.05 X10^3/uL; Basophil% 0.6 % (0-1); Eosinophil# 0.22 X10^3/uL; Eosinophils% 2.7 % (0-5); Hematocrit 30.4 % (37-47); Hemoglobin 9.6 g/dL (12.0-15.0); Lymphocyte # 1.24 X10^3/ul (0.83-4.51); Lymphocyte % 15.1 % (19-41); Mean Corp Hgb Conc 31.6 g/dL (32-36); Mean Corpuscular Hgb 27.5 pg (27.0-32.0); Mean Corpuscular Volume 87.1 fL (81-99); Mean Platelet Vol. 10.5 fl (6.2-12.0); Monocyte# 0.58 X10^3/uL; NRBC Flagged by Analyzer 0 % (0-5); Neutrophil # 6.03 X10^3/uL (2.7-7.7); Neutrophil % 73.3 % (47-70); POSITIVE COUNT YES; Platelet Count 82 K/mm3 (150-450); RBC Distribution Width CV 16.3 % (11.6-14.6); RBC Distribution Width SD 51.8 fl (35.1-43.9); Red Blood Count 3.49 M/mm3 (4.2-5.4); White Blood Count 8.2 K/mm3 (4.4-11.0)
[2023-08-18 07:02] LABS: Bedside Glucose 137 mg/dL (74-106)
[2023-08-18 07:14] LABS: Anion Gap 5 (5-15); BUN 23 mg/dL (7-18); BUN/Creat Ratio 29.8 RATIO (10-20); Calcium,Total 8.1 mg/dL (8.5-10.1); Chloride 110 mmol/L (98-107); Creatinine, Serum 0.77 mg/dL (0.55-1.02); EST Glomerular Filtration Rate 82 mL/min (>60); Est Glom Filt Rate - Afr Amer 100 mL/min (>60); Estimated Creatinine Clearance 83.28 ml/min; Glucose 141 mg/dL (74-106); Sodium Level 137 mmol/L (136-145)
--- NOTE | 2023-08-18 07:49 | PCM.PN.HOSP ---
Reason for Visit Reason for Visit: Diagnoses Sepsis, unspecified organism (08/12/23) Unspecified Escherichia coli [E. 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 More alert today. Upset with staff last night as she says they were swearing at her. Objective Data Objective Data Vital Signs: Vital Signs Temp Pulse Resp BP Pulse Ox O2 Del Method O2 Flow Rate 37.0 C 94 18 164/84 H 96 Room Air 4 08/18/23 05:07 08/18/23 05:07 08/18/23 05:07 08/18/23 05:07 08/18/23 05:07 08/18/23 05:07 08/16/23 07:00 Oxygen Flow Rate (L/min) 4 Oxygen Delivery Method Room Air Weight: 116.9 kg Body Mass Index (BMI) 39.2 Intake & Output: Intake and Output for Last 24 Hours 08/16/23 08/17/23 08/18/23 23:59 23:59 23:59 Intake Total 923.50 / 1023.50 440 / 440 120 / 120 Output Total 1400 / 1850 1750 / 1750 400 / 400 Balance -476.50 / -826.50 -1310 / -1310 -280 / -280 Lab / Micro Data 08/18/23 05:55 08/18/23 05:55 Labs: Laboratory Results - last 24 hr 08/17/23 05:46: Total Creatine Kinase 26 08/17/23 12:54: Urine Opiates Screen POSITIVE H, Urine Methadone Screen NEGATIVE, Ur Barbiturates Screen NEGATIVE, Ur Phencyclidine Scrn NEGATIVE, Ur Amphetamines Screen NEGATIVE, MDMA (Ecstasy) Screen NEGATIVE, U Benzodiazepines Scrn NEGATIVE, Urine Cocaine Screen NEGATIVE, U Cannabinoids Screen NEGATIVE, Ur Drug Screen Comment 08/17/23 16:09: POC Glucose 205 H 08/17/23 21:32: POC Glucose 178 H 08/18/23 05:55: WBC 8.2, RBC 3.49 L, Hgb 9.6 L, Hct 30.4 L, MCV 87.1, MCH 27.5, MCHC 31.6 L, RDW Std Deviation 51.8 H, RDW Coeff of Frannie 16.3 H, Plt Count 82 L, MPV 10.5, Immature Gran % (Auto) 1.300 H, Neut % (Auto) 73.3 H, Lymph % (Auto) 15.1 L, [place] % (Auto) 7.0, Eos % (Auto) 2.7, Baso % (Auto) 0.6, Absolute Neuts (auto) 6.0, Absolute Lymphs (auto) 1.24, Nucleated RBC % 0, Sodium 137, Potassium 4.0, Chloride 110 H, Carbon Dioxide 22.0, Anion Gap 5, BUN 23 H, Creatinine 0.77, Estim Creat Clear Calc 83.28, Est GFR (MDRD) Af Amer 100, Est GFR (MDRD) Non-Af 82, BUN/Creatinine Ratio 29.8 H, Glucose 141 H, Calcium 8.1 L 08/18/23 06:41: POC Glucose 137 H Micro: Microbiology 08/15/23 13:30 Blood Culture (Wb) - Anticubital Right Blood Culture - Preliminary Coag Negative Staph 08/15/23 13:35 Blood Culture (Wb) - Left Hand Blood Culture - Preliminary No growth in 48 hours. Radiography Diagnostic Testing: Radiology Impression Brain CT 08/17/23 11:59 IMPRESSION: Normal unenhanced CT scan of the brain. Electronically Signed: Aamir Glez MD at 13:17 EDT , Knee X-Ray 08/17/23 12:25 IMPRESSION: Degenerative arthrosis. Electronically Signed: Aamir Glez MD at 13:14 EDT , Knee X-Ray 08/17/23 12:25 IMPRESSION: Moderate arthrosis with multiple calcified bodies. Electronically Signed: Aamir Glez MD at 13:13 EDT Reading Location ID and State: [address] [place] [address] Tel , Service support , Rhythm Strip Rhythm Strip: Sinus Tach Rate: 110 Ectopy: None Physical Exam Const alert and no apparent distress HEENT head/scalp atraumatic and moist oral mucous membranes Resp normal respiratory effort, no retractions, no use of accessory muscles and clear to auscultation bilaterally Cardio regular rate, regular rhythm, S1 normal heart sound and S2 normal heart sound GI normal to inspection, nondistended, normoactive bowel sounds, soft to palpation, non-tender and non-distended Assessment & Plan Assessment/Plan (1) Sepsis: QUALIFIERS: Acute renal failure type: unspecified Sepsis acute organ dysfunction status: with acute organ dysfunction Sepsis type: sepsis due to unspecified organism Severe sepsis acute organ dysfunction type: acute renal failure Severe sepsis shock status: without septic shock Qualified Code(s): A41.9 - Sepsis, unspecified organism; R65.20 - Severe sepsis without septic shock; N17.9 - Acute kidney failure, unspecified PLAN: POA SIRS: 3/4 (HR 124, RR 24, WBC 13.3 on admission at [facility]), qSOFA 2 (RR 24, BP w several SBP <100) 2/2 pyelonephritis Lactic acidosis may have been skewed given use of metformin. No documented hypotension, therefore, septic shock ruled out. (2) Pyelonephritis: PLAN: Through [facility]: CT showed left renal enlargement w perinephric and periureteral fat stranding but no evidence of acute urinary obstruction. Findings suggesting pyelonephritis. (additionally porcelain gallbladder) Follow up UCx from OSH thus far showing E >100 k E. coli, sensitivities pending. Continue CTX. (3) BREONNA (acute kidney injury): PLAN: Through [facility]: Creatinine was 1.09 on 06/15. Continue IVF. Monitor. (4) Encephalopathy: PLAN: Likely toxic from gabapentin and metabolic from sepsis and pyelonephritis Ammonia WNL. Head CT negative. UDS positive for opiates. As encephalopathy resolved, may resume gabapentin. (5) Bacteremia due to Escherichia coli: PLAN: BCID at OSH showing abnormality for E. coli and enterobacterales No direct blood cultures available in [facility] from OSH. BCx drawn on 08/16 showing 1/2 for GPC. May be contaminant. (6) Knee pain: PLAN: bilateral Benign exam. Knee xrays negative. CPK 26. PLAN: Plan Chronic conditions: HTN: continue metoprolol. hold lisinopril given BREONNA Diabetes mellitus with polyneuropathy: metformin held given BREONNA. Glargine 20 and SSI. Gabapentin dose cut back given BREONNA tobacco abuse: nicotine patch if requested cirrhosis: dc acetaminophen. 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 follow up with general surgery as outpt. DVT prophylaxis: Subcu heparin ordered Charges/Coding Visit Charges Inpatient E&M: 24733 Subs Hosp L2
[2023-08-18 09:16] VITALS: BP 178/79; PULSE 96; RESP 18; TEMP 37; O2SAT 97
[2023-08-18 09:21] VITALS: PULSE 96
[2023-08-18] MEDS: Lisinopril 10 MG Tablet PO (09:21)
[2023-08-18] MEDS: Pantoprazole Sodium 20 MG Tablet PO (09:21)
[2023-08-18] MEDS: Metoprolol Tartrate 25 MG Tablet PO (09:21)
[2023-08-18 11:00] VITALS: PULSE 97
--- NOTE | 2023-08-18 11:47 | NURSING ---
informed pt requesting to leave AMA. Dr. Snyder sent message for Sera. Dr. Snyder returned call talked with Sera primary RN as well as patient. Pt signed AMA papers, significant other bedside. pt would not give specifics as to why wanted to leave.
--- NOTE | 2023-08-18 12:53 | DS.PCM_ITS ---
Providers Date of Admission: 08/12/23 Primary Care Physician: Vesna Primary Care Phys Consultations 08/14/23 12:50 Consult: Infectious Disease Routine Consulting Provider: Ike Sams Reason for Consult: ESBL e. coli pyelo EMERGENT Consult: No MD Notified: Yes Date Notified: 08/14/23 Time Notified: 12:51 Method of Notification: Text Reason For Visit: ACUTE RECURRENT LEFT PYELONEPHRITIS Diagnosis Discharge Diagnosis (1) Sepsis: Status: Acute Code(s): A41.9 - Sepsis, unspecified organism Qualifiers: Sepsis type: sepsis due to unspecified organism Sepsis acute organ dysfunction status: with acute organ dysfunction Severe sepsis acute organ dysfunction type: acute renal failure Acute renal failure type: unspecified Severe sepsis shock status: without septic shock Qualified Code(s): A41.9 - Sepsis, unspecified organism; R65.20 - Severe sepsis without septic shock; N17.9 - Acute kidney failure, unspecified Plan: POA SIRS: 3/4 (HR 124, RR 24, WBC 13.3 on admission at [facility]), qSOFA 2 (RR 24, BP w several SBP <100) 2/2 pyelonephritis Lactic acidosis may have been skewed given use of metformin. No documented hypotension, therefore, septic shock ruled out. (2) Pyelonephritis: Status: Acute Code(s): N12 - Tubulo-interstitial nephritis, not specified as acute or chronic Plan: Through [facility]: CT showed left renal enlargement w perinephric and periureteral fat stranding but no evidence of acute urinary obstruction. Findings suggesting pyelonephritis. (additionally porcelain gallbladder) Follow up UCx from OSH thus far showing E >100 k E. coli, sensitivities pending. Continue CTX. (3) BREONNA (acute kidney injury): Status: Acute Code(s): N17.9 - Acute kidney failure, unspecified Plan: Through [facility]: Creatinine was 1.09 on 06/15. Continue IVF. Monitor. (4) Encephalopathy: Status: Acute Code(s): G93.40 - Encephalopathy, unspecified Plan: Likely toxic from gabapentin and metabolic from sepsis and pyelonephritis Ammonia WNL. Head CT negative. UDS positive for opiates. As encephalopathy resolved, may resume gabapentin. (5) Bacteremia due to Escherichia coli: Status: Acute Code(s): R78.81 - Bacteremia; B96.20 - Unspecified Escherichia coli [E. coli] as the cause of diseases classified elsewhere Plan: BCID at OSH showing abnormality for E. coli and enterobacterales No direct blood cultures available in [facility] from OSH. BCx drawn on 08/16 showing 1/2 for GPC. May be contaminant. (6) Knee pain: Status: Acute Code(s): M25.569 - Pain in unspecified knee Plan: bilateral Benign exam. Knee xrays negative. CPK 26. Plan Chronic conditions: * HTN: continue metoprolol. hold lisinopril given BREONNA * Diabetes mellitus with polyneuropathy: metformin held given BREONNA. Glargine 20 and SSI. Gabapentin dose cut back given BREONNA * tobacco abuse: nicotine patch if requested * cirrhosis: dc acetaminophen. 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 follow up with general surgery as outpt. DVT prophylaxis: Subcu heparin ordered Medications at Discharge Home Medications albuterol sulfate 2.5 mg/3 mL (0.083 %) solution for nebulization 2.5 mg inhalation Q4H PRN 07/12/22 albuterol sulfate 90 mcg/actuation aerosol inhaler 2 puff inhalation Q6H PRN asthma 07/12/22 cyclobenzaprine 10 mg tablet 10 mg PO TID PRN 07/12/22 gabapentin 600 mg tablet 600 mg PO BID back pain 07/12/22 hydrocodone 7.5 mg-acetaminophen 325 mg tablet 1 tab PO Q6H PRN back pain 07/12/22 metformin 500 mg tablet 500 mg PO BID diabetes 07/12/22 metoprolol tartrate 25 mg tablet 25 mg PO PRN high blood pressure 07/12/22 insulin glargine 100 unit/mL (3 mL) subcutaneous pen (Lantus Solostar U-100 Insulin) 20 unit subcut QPM diabetes 05/28/23 omeprazole 20 mg tablet,delayed release 20 mg PO BID PRN 05/28/23 lisinopril 10 mg tablet 10 mg PO DAILY blood pressure 08/12/23 loratadine 10 mg tablet 10 mg PO DAILY PRN allergies 08/12/23 Hospital Course Operations None Procedures None Summary of Care Provided Minutes Spent on Discharge: 40 Hospital Course: Patient presented to outside hospital with inability to urinate. Patient was noted to have pyelonephritis and was septic. Patient was transferred here. Patient was not in septic shock and was monitored. Initially started on ceftriaxone. Subsequent cultures showed ESBL E. coli. Infectious disease was consulted and patient had a blood culture panel that shows some bacteria. Blood cultures here showing 1 of 2 for gram-positive cocci which was likely contaminant. Patient's course was complicated by encephalopathy. Patient was very confused. [place] this prior combination of gabapentin as well as her underlying illness. Today, the patient was alert and oriented. She expressed frustration over some of the people that are caring for her saying that they were swearing at her. Told her that we can resume her gabapentin as she still having pain as she has chronic back pain. So I talk with her fibular time and then later, patient stated that she was leaving. Did not specify the reason for her leaving. I did talk to her on the phone stated that she has a multidrug- resistant bacteria that requires IV antibiotics and if she were to go she may get sicker or even . That we cannot discharged with IV antibiotics as that would require insurance approval and also she would need a PICC line. She expressed understanding but was going to leave nonetheless. Weight / BMI Weight Weight: 116.9 kg Body Mass Index (BMI) 39.2 ABG / Lab / Microbiology Data 08/18/23 05:55 08/18/23 05:55 Laboratory: Laboratory Results - last 24 hr 08/17/23 12:54: Urine Opiates Screen POSITIVE H, Urine Methadone Screen NEGATIVE, Ur Barbiturates Screen NEGATIVE, Ur Phencyclidine Scrn NEGATIVE, Ur Amphetamines Screen NEGATIVE, MDMA (Ecstasy) Screen NEGATIVE, U Benzodiazepines Scrn NEGATIVE, Urine Cocaine Screen NEGATIVE, U Cannabinoids Screen NEGATIVE, Ur Drug Screen Comment 08/17/23 16:09: POC Glucose 205 H 08/17/23 21:32: POC Glucose 178 H 08/18/23 05:55: WBC 8.2, RBC 3.49 L, Hgb 9.6 L, Hct 30.4 L, MCV 87.1, MCH 27.5, MCHC 31.6 L, RDW Std Deviation 51.8 H, RDW Coeff of Frannie 16.3 H, Plt Count 82 L, MPV 10.5, Immature Gran % (Auto) 1.300 H, Neut % (Auto) 73.3 H, Lymph % (Auto) 15.1 L, [place] % (Auto) 7.0, Eos % (Auto) 2.7, Baso % (Auto) 0.6, Absolute Neuts (auto) 6.0, Absolute Lymphs (auto) 1.24, Nucleated RBC % 0, Sodium 137, Potassium 4.0, Chloride 110 H, Carbon Dioxide 22.0, Anion Gap 5, BUN 23 H, Creatinine 0.77, Estim Creat Clear Calc 83.28, Est GFR (MDRD) Af Amer 100, Est GFR (MDRD) Non-Af 82, BUN/Creatinine Ratio 29.8 H, Glucose 141 H, Calcium 8.1 L 08/18/23 06:41: POC Glucose 137 H Microbiology: Microbiology 08/15/23 13:30 Blood Culture (Wb) - Anticubital Right Blood Culture - Preliminary Coag Negative Staph 08/15/23 13:35 Blood Culture (Wb) - Left Hand Blood Culture - Preliminary No growth in 48 hours. Radiography Diagnostic Testing: Radiology Impression Brain CT 08/17/23 11:59 IMPRESSION: Normal unenhanced CT scan of the brain. Electronically Signed: Aamir Glez MD at 13:17 EDT Reading Location ID and State: [place] [facility] Tel , Service support , Knee X-Ray 08/17/23 12:25 IMPRESSION: Degenerative arthrosis. Electronically Signed: Aamir Glez MD at 13:14 EDT Reading Location ID and State: [facility] [facility] Tel , Service support , Knee X-Ray 08/17/23 12:25 IMPRESSION: Moderate arthrosis with multiple calcified bodies. Electronically Signed: Aamir Glez MD at 13:13 EDT Reading Location ID and State: [facility] [facility] Tel , Service support , Meaningful Use Info Meaningful Use Diagnoses (Choose all that apply): None applicable Discharge Plan Admission Admit Date/Time: 08/12/23 22:46 Attending Provider: Nato Snyder Primary Care Provider: Kushal Lin,No Primary Consulting Providers: Kamla Jimenez; Ike Sams Discharge Orders/Prescriptions Prescriptions: No Action albuterol sulfate 2.5 mg /3 mL (0.083 %) solution for nebulization 2.5 mg inhalation Q4H PRN albuterol sulfate 90 mcg/actuation HFA aerosol inhaler 2 puff inhalation Q6H PRN (Reason: asthma) cyclobenzaprine 10 mg tablet 10 mg PO TID PRN gabapentin 600 mg tablet 600 mg PO BID metoprolol tartrate 25 mg tablet 25 mg PO PRN Patient Comments: pt takes this as needed for high blood pressure hydrocodone-acetaminophen 7.5-325 mg tablet 1 tab PO Q6H PRN (Reason: back pain) metformin 500 mg tablet 500 mg PO BID omeprazole 20 mg tablet,delayed release (DR/EC) 20 mg PO BID PRN insulin glargine [Lantus Solostar U-100 Insulin] 100 unit/mL (3 mL) insulin pen 20 unit subcut QPM Patient Comments: inject 20 units subcutaneously every evening lisinopril 10 mg tablet 10 mg PO DAILY Patient Comments: take 1 tablet by mouth once daily loratadine 10 mg tablet 10 mg PO DAILY PRN (Reason: allergies) Patient Comments: take 1 tablet by mouth once daily if needed Referrals / Follow Up: Care Physician,No Primary [Primary Care Provider] - Disposition Disposition (needs filled in before D/C Order can be placed): Against Medical Advice Charges/Coding Visit Charges Inpatient E&M: 19578 Disch Hosp >30min
== END 2023-08-18 11:55 | disposition left against medical advice (07) | DRG 720 ==
LOC: ICU 08-16 12:11 → MS3 08-16 15:44
PROVIDERS: Hospitalist; Internal Medicine Critical Care Medicine; Admitting Provider Internal Medicine
DX: A41.51 Sepsis due to Escherichia coli [E. coli] (principal); G92.8 Other toxic encephalopathy; N17.9 Acute kidney failure, unspecified; E11.42 Type 2 diabetes mellitus with diabetic polyneuropathy; E66.01 Morbid (severe) obesity due to excess calories; F17.210 Nicotine dependence, cigarettes, uncomplicated; N10 Acute pyelonephritis; K74.60 Unspecified cirrhosis of liver; R65.20 Severe sepsis without septic shock; Z79.4 Long term (current) use of insulin; I10 Essential (primary) hypertension; K82.8 Other specified diseases of gallbladder; M17.0 Bilateral primary osteoarthritis of knee; M54.50 Low back pain, unspecified; G89.29 Other chronic pain; T42.6X5A Adverse effect of other antiepileptic and sedative-hypnotic drugs, initial encounter; Z68.38 Body mass index [BMI] 38.0-38.9, adult; Z16.12 Extended spectrum beta lactamase (ESBL) resistance; Z79.84 Long term (current) use of oral hypoglycemic drugs; Z79.899 Other long term (current) drug therapy; Z53.29 Procedure and treatment not carried out because of patient's decision for other reasons
CPT/HCPCS: 36415; 70450; 71045; 73560; 76700; 80048; 80053; 80074; 80307; 82140; 82550; 82962; 83605; 85025; 87040; 94640; 97162; 97166; 97530; 97535; 97802; 99406; J2185; J7030; J7050; A4216; J0696

== ENCOUNTER → 2025-02-08 | Outpatient (CLI) | payer MEDICAID, SELFPAY ==
[2025-02-08 12:48] LABS: Absolute Lymphocyte Count 2.42 X10^3/uL (0.83-4.51); Absolute Neutrophil Count 7.5 X10^3/uL (2.0-7.7); Basophil# 0.07 X10^3/uL; Basophil% 0.6 % (0-1); Eosinophils% 2.7 % (0-5); Hematocrit 36.3 % (37-47); Hemoglobin 12.4 g/dL (12.0-15.0); Lymphocyte # 2.42 X10^3/ul (0.83-4.51); Lymphocyte % 21.9 % (19-41); Mean Corp Hgb Conc 34.2 g/dL (32-36); Mean Corpuscular Hgb 30.7 pg (27.0-32.0); Mean Corpuscular Volume 89.9 fL (81-99); Mean Platelet Vol. 11.1 fl (6.2-12.0); Monocyte# 0.76 X10^3/uL; Monocyte% 6.9 % (0-10); NRBC Flagged by Analyzer 0 % (0-5); Neutrophil # 7.48 X10^3/uL (2.7-7.7); Neutrophil % 67.6 % (47-70); Platelet Count 141 K/mm3 (150-450); RBC Distribution Width CV 13.2 % (11.6-14.6); RBC Distribution Width SD 43.7 fl (35.1-43.9); Red Blood Count 4.04 M/mm3 (4.2-5.4); White Blood Count 11.1 K/mm3 (4.4-11.0)
[2025-02-08 13:25] LABS: Phosphorus 3.5 mg/dL (2.7-4.5)
[2025-02-08 13:58] LABS: Protein, Urine (Random) 12.5 mg/dL (0.0-12.0); Protein:Creat Ratio 244 mg/g CRE (0-200)
[2025-02-08 14:01] LABS: Albumin, Serum 3.7 g/dL (3.5-5.0); Anion Gap 12 (5-15); BUN 17 mg/dL (4-19); BUN/Creat Ratio 16.5 RATIO (10-20); Calcium,Total 9.1 mg/dL (7.6-11.0); Carbon Dioxide 19.7 mmol/L (21.0-32.0); Chloride 103 mmol/L (98-108); Creatinine, Serum 1.01 mg/dL (0.70-1.20); EST Glomerular Filtration Rate 65 (>60); Glucose 120 mg/dL (70-99); Potassium 4.3 mmol/L (3.3-5.1); Sodium Level 135 mmol/L (133-145)
== END | disposition home or self-care (01) ==
PROVIDERS: PCP Family Medicine; Referring Provider Internal Medicine Cardiovascular Disease; Visit Provider Student in an Organized Health Care Education/Training Program
DX: R94.4 Abnormal results of kidney function studies (principal)
CPT/HCPCS: 36415; 80069; 82570; 84156; 85025

== ENCOUNTER 2025-04-02 11:58 | Emergency (ER) | payer MEDICAID, SELFPAY ==
[2025-04-02 11:58] VITALS: BP 145/59; PULSE 70; RESP 14; TEMP 36.3; O2SAT 98
[2025-04-02 12:00] VITALS: BP 145/59; PULSE 70; RESP 14; TEMP 36.3; O2SAT 97
--- OUTSIDE RECORDS SUMMARY | 2025-04-02 14:00 | XMS RPT_ITS | CCD ---
Author Organization [facility] CliniSyms Care Team Providers Care Glassworker Name Role Phone PHYSICIAN, NOT RECORDED Primary Care Physician U navailable Clifford Sarmiento DO Primary Care Provider Clifford Sarmiento DO Unavailable MAST FAST FOOD SHIFT LEAD-CURRICULUM DEVELOPMENT MANAGER, EMILY Primary Care Physician CLIFFORD SARMIENTO DO Primary Care Physician Care Physician, No Primary Primary Care Provider Unavailable Care Physician, No Primary Referring Provider Un available Dr. Vanesa Brown Attending Provider Dr. Kamla Jimenez Admit Provider Dr. Kamla Jimenez Other Provider Dr. Cholo Piper Other Provider Dr. Amador Lares Other Provider Dr. Chong Cuello Other Provider Unavailable Dr. Tony Talley Other Provider Dr. Tee Elena Other Provider Unavailab Morales SILK HANGER, SILK HANGER-C Ana Other Provider Dr. Clifford Hernandez Attending Provider Dr. Nato Snyder Other Provider Dr. Cholo Piper Attending Provider Dr. Nato Snyder Attending Provider Dr. Ike Sams Other Provider [phone] JUAN FAST FOOD SHIFT LEAD-CURRICULUM DEVELOPMENT MANAGER, EMILY Primary Care Unavailtamar CHAUDHRY FAST FOOD SHIFT LEAD-CURRICULUM DEVELOPMENT MANAGERBRINDA Attending JacquelinevaCLIFFORD Wilson DO Primary Care Unavailable KERMIT STEWART Attending Unavailable MAST FAST FOOD SHIFT LEAD-CURRICULUM DEVELOPMENT MANAGER, EMILY Primary Care Unavailabl e RIDER DO, DR TANIA Silva Attending Unavailable MAST FAST FOOD SHIFT LEAD-CURRICULUM DEVELOPMENT MANAGER, EMILY Primary Care Unavailabl e KENNEN FAST FOOD SHIFT LEAD-CURRICULUM DEVELOPMENT MANAGER, BRINDA Mohamud Attending Unavai lable MAST FAST FOOD SHIFT LEAD-CURRICULUM DEVELOPMENT MANAGER, EMILY Primary Care Unavailabl e KENNEN FAST FOOD SHIFT LEAD-CURRICULUM DEVELOPMENT MANAGER, BRINDA Mohamud Attending Unavai lable MAST FAST FOOD SHIFT LEAD-CURRICULUM DEVELOPMENT MANAGER, EMILY Attending Unavailabl e MAST FAST FOOD SHIFT LEAD-CURRICULUM DEVELOPMENT MANAGER, EMILY Primary Care Unavailabl e POTOCKI DO, CLIFFORD A Primary Care Unavailable DR. KAMLA JIMENEZ Consulting Unava ilable BERT DO, KATELYNN Attending Unavailable MAST FAST FOOD SHIFT LEAD-CURRICULUM DEVELOPMENT MANAGER, EMILY Primary Care Unavailabl e FROMMELT , SILVINO Attending Unavailable KAPPER FAST FOOD SHIFT LEAD-CURRICULUM DEVELOPMENT MANAGER, CRISTY Blum Attending Unavaila ble MAST FAST FOOD SHIFT LEAD-CURRICULUM DEVELOPMENT MANAGER, EMILY Primary Care Unavailabl e MAST FAST FOOD SHIFT LEAD-CURRICULUM DEVELOPMENT MANAGER, EMILY Attending Unavailabl e MAST FAST FOOD SHIFT LEAD-CURRICULUM DEVELOPMENT MANAGER, EMILY Attending Unavailabl e MAST FAST FOOD SHIFT LEAD-CURRICULUM DEVELOPMENT MANAGER, EMILY Primary Care Unavailabl e MAST FAST FOOD SHIFT LEAD-CURRICULUM DEVELOPMENT MANAGER, EMILY Primary Care Unavailabl e PLKERMIT CUI DO Referring Unavailable DEEPTI MONROY, KERMIT Attending Unavailable KAPPER FAST FOOD SHIFT LEAD-CURRICULUM DEVELOPMENT MANAGER, CRISTY Blum Admitting Unavaila ble REFERRING, [facility] Primary Care Unavailable KAPPER FAST FOOD SHIFT LEAD-CURRICULUM DEVELOPMENT MANAGER, CRISTY Blum Referring Unavaila ble KAPPER FAST FOOD SHIFT LEAD-CURRICULUM DEVELOPMENT MANAGER, CRISTY Blum Attending Unavaila ble KAPPER FAST FOOD SHIFT LEAD-CURRICULUM DEVELOPMENT MANAGER, CRISTY Blum Admitting Unavaila ble KENNEN FAST FOOD SHIFT LEAD-CURRICULUM DEVELOPMENT MANAGER, BRINDA Mohmaud Admitting Unashauni CRAIG Mao MD Referring Unavailable KENNEN FAST FOOD SHIFT LEAD-CURRICULUM DEVELOPMENT MANAGER, BRINDA Mohamud Attending Unavai lable MAST FAST FOOD SHIFT LEAD-CURRICULUM DEVELOPMENT MANAGER, EMILY Primary Care Unavailabl e MAST FAST FOOD SHIFT LEAD-CURRICULUM DEVELOPMENT MANAGER, EMILY Attending Unavailabl e MAST FAST FOOD SHIFT LEAD-CURRICULUM DEVELOPMENT MANAGER, EIMLY Primary Care Unavailabl e MAST FAST FOOD SHIFT LEAD-CURRICULUM DEVELOPMENT MANAGER, EMILY Attending Unavailabl e MAST FAST FOOD SHIFT LEAD-CURRICULUM DEVELOPMENT MANAGER, EMILY Primary Care Unavailabl e POTOCKI DO, CLIFFORD A Primary Care Unavailable ALMA LOPEZ MD Attending Unavail able POTTESHA DO, CLIFFORD A Primary Care Unavailable ALBERT PALOMO DO Attending Unavailable POTTESHA, CLIFFORD A Primary Care Unavailable LOURDES ALBERTO Admitting Unavailable KIMI SUÁREZ Consulting Unavailable SHON CARSON Attending Unavailable CLIFFORD SARMIENTO Primary Care Unavailable MORE, KYLEIGH Admitting Unavailable MORE, KYLEIGH Attending Unavailable WESTLEY GONZALES Consulting Unavailable Care Physician, No Primary Primary Care Provider Unavailable Care Physician, No Primary Referring Provider Un available Kevni BRUNER, Dr. Alexis Attending Provider [phone] Sharri BRUNER, Dr. Garcias Attending Provide r Dr. Clifford Sarmiento DO Primary Care Provider Dr. Vanesa Brown MD Referring Provider Clifford Sarmiento Primary Care Unavailable Onel Harrell Attending Unavaila ble Vanesa Brown Referring Unavailable Care Physician, No Primary Primary Care Unava ilable Sera Esparza Attending Unavailable Care Physician, No Primary Referring Unava ilable Care Physician, No Primary Primary Care Unava ilable Vanesa Brown Attending Unavailable Care Physician, No Primary Referring Unava ilable Allergies Allergy Classification Reported Allergen(s) Allergy Type Date of Onset Reaction(s) Facility Adrenergic Agonists (1 source) EPINEPHrine; Translations: [epinephrine] Drug Allergy [facility] Coconut extract (1 source) Coconut extract Drug Allergy facial swelling, hives [facility] Opioid Agonists (1 source) Codeine; Translations: [codeine] Drug Allergy Tongue swelling (finding) [facility] Comment on above: Blisters in mouth Quinolones (antibiotic) (1 source) Ciprofloxacin; Translations: [ciprofloxacin] Drug Allergy Weal (disorder), Vomiting (disorder) [facility] Sulfamethoxazole / Trimethoprim (1 source) Sulfamethoxazole / Trimethoprim; Translations: [sulfamethoxazole-t rimethoprim] Drug Allergy Vomiting (disorder), Weal (disorder) [facility] Sulfonamides (antibiotic) (1 source) Sulfamethoxazole; Translations: [sulfamethoxazole] Drug Allergy Eruption of skin (disorder) [facility] Unclassified (3 sources) Chocolate 2 Food allergy facial swelling, hives [facility] Comment on above: dark chocolate only (19 sources) Codeine; Translations: [codeine] Drug Allergy 05-16-20 11 Intolerance, Tongue swelling (finding) [facility] Work Phone: Comment on above: Blisters in mouth (17 sources) EPINEPHrine; Translations: [epinephrine] Drug Allergy 05-28-[address] [facility] Work Phone: (4 sources) Erythromycin; Translations: [erythromycin] Drug Allergy 05-28-[address] [facility] Work Phone: (17 sources) Sulfamethoxazole; Translations: [sulfamethoxazole] Drug Allergy 05-28-20 Eruption of skin (disorder) [facility] Work Phone: (2 sources) Iodine; Translations: [IODINE] Drug Allergy 01-27-20 Vomiting [facility] (2 sources) Epinephrine Base; Translations: [EPINEPHRINE BASE] Drug Intolerance 05-16-20 11 Vomiting [facility] Work Phone: (13 sources) Ciprofloxacin; Translations: [ciprofloxacin] Drug Allergy Weal (disorder), Vomiting (disorder) [facility] (11 sources) Sulfamethoxazole / Trimethoprim; Translations: [sulfamethoxazole-t rimethoprim] Drug Allergy Vomiting (disorder), Weal (disorder) [facility] (12 sources) Coconut extract Drug Allergy 05-28-20 Anaphylaxis, facial swelling, hives [facility] (8 sources) Chocolate 1 Food allergy facial swelling, hives [facility] Comment on above: dark chocolate only (1 source) Coconut extract Drug Allergy 02-03-20 [facility] Repository (1 source) Codeine Drug Allergy 02-03-20 [facility] (1 source) EPINEPHrine Drug Allergy 02-03-20 [facility] (1 source) Erythromycin Drug Allergy 02-03-20 [facility] (1 source) Sulfamethoxazole Drug Allergy 02-03-20 [facility] Repository Medications Current Medications Medication Drug Class(es) Dates Sig (Normalized) Sig (Original) Albuterol (20 sources) beta2-Adrenergic Agonist Start: 06-20-2023 Ventolin HFA MDI (90 mcg/inh) inhalation aerosol 0 Refill(s) Start Date: 06/20/23 Status: Ordered Start: 07-12-2022 take 2.5 mg by inhal ation every four hours as needed Albuterol Sulfate 2.5 mg /3 mL (0.083 %) solution for nebulization Active 2.5 mg INHALATION Q4H as needed July 12, 2022 12:00am Start: 07-12-2022 Albuterol Sulf ate 90 mcg/actuation HFA aerosol inhaler Active 2 NMA INHALATION EVERY 6 HOURS as needed for asthma July 12, 2022 12:00am Start: 07-12-2022 take 1 puff(s) by in halation every six hours Albuterol Sulfate Active 2 PUFF INHALATION EVERY 6 HOURS July 12, 2022 12:00am Start: 11-11-2015 take 1 dose by inhal ation every four hours as needed for wheezing ProAir HFA MDI (90 mcg/inh) inhalation aerosol Dose = 2 puff(s), Inhalation, q4h, PRN for wheezing, 0 Refill(s) Start Date: 11/11/15 Status: Ordered Start: 11-11-2015 take 1 dose by inhal ation every six hours as needed albuterol 2.5 mg/3 mL (0.083%) inhalation solution Dose : 2.5 mg = 3 mL, Inhalation, q6h, PRN for wheezing, 0 Refill(s) Start Date: 11/11/15 Status: Ordered Start: 11-11-2015 take 1 dose by inhal ation every six hours as needed albuterol 2.5 mg/3 mL (0.083%) inhalation solution Dose : 2.5 mg = 3 mL, Inhalation, q6h, PRN for wheezing, 0 Refill(s) Start Date: 11/11/15 Status: Ordered Start: 11-11-2015 take 1 dose by inhal ation every four hours as needed for wheezing ProAir HFA MDI (90 mcg/inh) inhalation aerosol Dose = 2 puff(s), Inhalation, q4h, PRN for wheezing, 0 Refill(s) Start Date: 11/11/15 Status: Ordered Start: 02-07-2012 take 2 puff(s) by in halation every four hours as needed albuterol HFA (PROAIR HFA) 90 mcg/actuation INHALATION inhaler Indications: Asthma Inhale 2 Puffs as instructed every 4 hours as needed. 1 Inhaler 5 02/07/2012 Active Comment on above: Inhale 2 Puffs as in structed every 4 hours as needed. amLODIPine 10 mg oral tablet (1 source) Dihydropyridine Calcium Channel Mir Start: take 1 tablet by mouth once daily Amlodipine 10 mg tablet Active 10 mg PO daily February 02, 2025 12:00am atorvastatin 40 mg oral tablet (1 source) HMG-CoA Reductase Inhibitor Start: take 1 tablet by mouth at bedtime Atorvastatin 40 mg tablet Active 40 mg PO AT BEDTIME February 02, 2025 12:00am Basaglar 100 unit(s)/mL 3 mL KwikPen (1 source) Start: inject 1 dose by subcutaneous injection once daily at bedtime Basaglar 100 unit(s)/mL 3 mL KwikPen Dose : 18 unit(s) =, Subcutaneous, qHS, # 15 mL, 0 Refill(s) Start Date: 03/27/19 Status: Ordered cefdinir 300 mg oral capsule (1 source) Cephalosporin Antibacterial Start: 023 End: cefdinir 300 mg oral capsule Dose : 300 mg = 1 cap(s), Oral, q12h, X 4 day(s), # 8 cap(s), 0 Refill(s), 06/19/23 1:18:00 PM EDT, [facility]: [id number], 172.7, cm, 06/12/23 18:17:00 EDT, Height, 120.6, kg, 06/13/23 6:10:00 EDT, Dosing Weight Start Date: 06/15/23 Stop Date: 06/19/23 Status: Ordered cephalexin 500 mg oral capsule (5 sources) Cephalosporin Antibacterial Start: 024 End: cephalexin 500 mg oral capsule Dose : 500 mg = 1 cap(s), Oral, QID, Take with a probiotic, X 7 day(s), # 28 cap(s), 0 Refill(s), 04/07/24 12:18:00 PM EDT, 114 Start Date: 03/31/24 Stop Date: 04/07/24 Status: Ordered Start: 05-30-2019 End: 06-06-2019 cephalexin 500 mg oral capsu le Dose : 500 mg = 1 cap(s), Oral, QID, # 4 cap(s), 0 Refill(s) Start Date: 05/30/19 Stop Date: 05/31/19 Status: Ordered clopidogrel 75 mg oral tablet (1 source) P2Y12 Platelet Inhibitor Start: 02-02-2025 take 1 tablet by mouth once daily Clopidogrel 75 mg tablet Active 75 mg PO daily February 02, 2025 12:00am cyclobenzaprine hydrochloride 10 mg oral tablet (19 sources) Muscle Relaxant Start: 10-04-2013 take 1 tablet by mouth three times daily as needed Cyclobenzaprine 10 mg tablet Active 10 mg PO THREE TIMES A DAY as needed July 12, 2022 12:00am Comment on above: Take 10 mg by mouth. DME MISCellaneous (14 sources) Start: 06-15-2023 DME MISCellaneous See Instructions, Please dispense Bud 2 sensors (2 total) as well as a Bud reader., # 1 EA, 0 Refill(s), [facility]: [id number], 172.7, cm, 06/12/23 18:17:00 EDT, Height, 120.6, kg, 06/13/23 6:10:00 EDT, Dosing Weight Start Date: 06/15/23 Status: Ordered ertapenem 1000 mg injection (4 sources) Penem Antibacterial Start: 08-19-2023 End: 08-25-2023 take 1 dose intravenously once daily ertapenem 1 g (Disch Rx) Dose : 1 gram(s) =, IV Piggyback, Daily, X 6 day(s), # 6 EA, 0 Refill(s), 08/25/23 1:40:00 PM EST, 115.5 Start Date: 08/19/23 Stop Date: 08/25/23 Status: Ordered furosemide 40 mg oral tablet (1 source) Loop Diuretic Start: 02-02-2025 take 1 tablet by mouth once daily Furosemide 40 mg tablet Active 40 mg PO daily February 02, 2025 12:00am gabapentin 300 mg oral capsule (19 sources) Anti-epileptic Agent Start: 06-12-2023 gabapentin 300 mg oral capsule Dose : 600 mg = 2 cap(s), Oral, BID, # 60 cap(s), 0 Refill(s), 114 Start Date: 06/12/23 Status: Ordered Start: 07-12-2022 take 1 tablet by lion th twice daily Gabapentin 600 mg tablet Active 600 mg PO TWICE A DAY July 12, 2022 12:00am Start: 01-12-2020 take 2 capsules by m outh twice daily gabapentin (NEURONTIN) 100 mg capsule Take 200 mg by mouth twice daily. 0 01/12/2020 Active Start: 03-27-2019 gabapentin 100 mg oral capsule Dose : 200 mg = 2 cap(s), Oral, BID, # 120 cap(s), 0 Refill(s) Start Date: 03/27/19 Status: Ordered Comment on above: Take 200 mg by mouth twice daily. glyBURIDE 5 mg oral tablet (3 sources) Sulfonylurea Start: 03-27-2019 glyBURIDE 5 mg oral tablet Dose : 5 mg = 1 tab(s), Oral, BIDM, 0 Refill(s) Start Date: 03/27/19 Status: Ordered 3 ml insulin glargine 100 unt/ml pen injector (20 sources) Insulin Analog Start: 02-02-2025 Insulin Glargine (Lantus Solostar U-100 Insulin) 100 unit/mL (3 mL) insulin pen Active 15 - 18 U SC EVERY EVENING February 02, 2025 10:41am Start: 06-20-2023 Lantus Solosta r Pen 100 units/mL 3 mL Pen Dose : 18 unit(s) =, qHS, 0 Refill(s) Start Date: 06/20/23 Status: Ordered Start: 06-20-2023 Lantus Solosta r Pen 100 units/mL 3 mL Pen Dose : 18 unit(s) =, 0 Refill(s) Start Date: 06/20/23 Status: Ordered Start: 05-28-2023 End: 02-02-2025 Insulin Glargine (Lantus Suzette ostar U-100 Insulin) 100 unit/mL (3 mL) insulin pen Discontinued 20 U SC EVERY EVENING May 28, 2023 11:01am February 02, 2025 10:45am Start: 12-28-2019 JESSICA ESCALANTEP EN U-100 INSULIN 100 unit/mL (3 mL) Start: 03-27-2019 End: 05-28-2023 Insulin Glargine (Lantus Suzette ostar U-100 Insulin) 100 unit/mL (3 mL) insulin pen Discontinued mL SC January 15, 2023 12:00am May 28, 2023 11:02am lisinopril 40 mg oral tablet (18 sources) Angiotensin Converting Enzyme Inhibitor Start: 02-02-2025 take 1 tablet by mouth once daily Lisinopril 40 mg tablet Active 40 mg PO daily February 02, 2025 12:00am Start: 06-12-2023 take 1 tablet by lion th once daily Lisinopril 10 mg tablet Active 10 mg PO DAILY August 12, 2023 12:00am Start: 06-12-2023 take 1 dose by mouth twice racheal ly lisinopril Dose : 10 mg =, Oral, BID, 0 Refill(s) Start Date: 06/12/23 Status: Ordered Start: 05-20-2012 take 1 tablet by lion th once daily lisinopril 10 mg tablet Take 1 tablet by mouth once daily. 90 tablet 1 05/20/2012 Active Comment on above: Take 1 tablet by lion th once daily. loratadine 10 mg oral tablet (2 sources) Start: 08-12-2023 take 1 tablet by mouth once daily as needed Loratadine 10 mg tablet Active 10 mg PO DAILY as needed for allergies August 12, 2023 12:00am metoprolol tartrate 50 mg oral tablet (4 sources) beta-Adrenergic Mir Start: 02-02-2025 take 1 tablet by mouth twice daily Metoprolol Tartrate 50 mg tablet Active 50 mg PO TWICE A DAY February 02, 2025 12:00am Start: 12-28-2019 End: 02-02-2025 Metoprolol Tartrate 25 mg ta blet Discontinued 25 mg PO NEEDED July 12, 2022 12:00am February 02, 2025 10:43am naproxen sodium 550 mg oral tablet (3 sources) Nonsteroidal Anti-inflammatory Drug Start: 01-04-2023 End: 01-14-2023 take 1 tablet by mouth once as needed, then take 1 tablet by mouth twice daily as needed Anaprox-DS 550 mg oral tablet Dose : 550 mg = 1 tab(s), PO, BID, prn with food, X 10 day(s), # 20 tab(s), 0 Refill(s), 01/14/23 11:55:00 EDT, Hypertension Start Date: 01/04/23 Stop Date: 01/14/23 Status: Ordered Start: 11-27-2021 naproxen 500 m g oral tablet Dose : 500 mg = 1 tab(s), Oral, BID, PRN as needed for pain, # 20 tab(s), 0 Refill(s), Neuralgia Start Date: 11/27/21 Status: Ordered nitrofurantoin, macrocrystals 25 mg / nitrofurantoin, monohydrate 75 mg oral capsule (1 source) Nitrofuran Antibacterial Start: 06-24-2023 End: 07-01-2023 Macrobid 100 mg oral capsule Dose : 100 mg = 1 cap(s), Oral, BID, Take with food, X 7 day(s), # 14 cap(s), 0 Refill(s), 07/01/23 9:00:00 AM EDT, [facility]: [id number], 173, cm, 06/20/23 11:19:00 EDT, Height, 119.7, kg, 06/20/23 11:19:00 EDT, Dosing Weight Start Date: 06/24/23 Stop Date: 07/01/23 Status: Ordered omeprazole 20 mg delayed release oral tablet (7 sources) Proton Pump Inhibitor Start: 07-12-2022 End: 05-28-2023 take 1 tablet by mouth twice daily as needed Omeprazole 20 mg tablet,delayed release (DR/EC) Active 20 mg PO TWICE A DAY as needed May 28, 2023 11:01am Start: 05-20-2012 omeprazole 20 mg oral delayed release capsule Dose : 20 mg = 1 cap(s), Oral, BIDAC, 0 Refill(s) Start Date: 03/27/19 Status: Ordered Comment on above: Take 1 capsule by [facility] daily before breakfast. 1/2 hr before meal. ondansetron 4 mg disintegrating oral tablet (13 sources) Serotonin-3 Receptor Antagonist Start: 04-24-2024 End: 04-28-2024 ondansetron 4 mg oral tablet, disintegrating Dose : 4 mg = 1 tab(s), Oral, q6h, X 4 day(s), # 16 tab(s), 0 Refill(s), 04/28/24 11:01:00 AM EDT Start Date: 04/24/24 Stop Date: 04/28/24 Status: Ordered Start: 03-31-2024 End: 04-03-2024 ondansetron 4 mg oral tablet , disintegrating Dose : 4 mg = 1 tab(s), Oral, q8h, X 3 day(s), # 9 tab(s), 0 Refill(s), 04/03/24 12:18:00 PM EDT Start Date: 03/31/24 Stop Date: 04/03/24 Status: Ordered Start: 08-28-2023 End: 09-02-2023 ondansetron 4 mg oral tablet , disintegrating Dose : 4 mg = 1 tab(s), Oral, q8h, PRN Nausea, allow tablet to dissolve on tongue, X 5 day(s), # 15 tab(s), 0 Refill(s), 09/02/23 8:42:00 PM EST, [facility]: [facility] #[id number], 173, cm, 08/27/23 13:08:00 EST, Height, kg, 08/27/23 13:08:00 EST, Dosing Weight Start Date: 08/28/23 Stop Date: 09/02/23 Status: Ordered Start: 06-12-2023 End: 06-30-2023 take 1 dose by mouth every six hours Zofran Dose : 4 mg =, Oral, q6h, 0 Refill(s) Start Date: 06/12/23 Status: Ordered potassium chloride 20 meq extended release oral tablet (1 source) Start: 02-02-2025 take 1 tablet by mouth once daily Potassium Chloride 20 mEq tablet extended release Active 20 meq PO daily February 02, 2025 12:00am {11 (varenicline 0.5 MG Oral Tablet [Chantix]) / 42 (varenicline 1 MG Oral Tablet [Chantix]) } Pack [Chantix First Month of Therapy] (9 sources) Partial Cholinergic Nicotinic Agonist Start: 08-27-2023 take 1 tablet by mouth twice daily Chantix Starter Pack 0.5 mg-1 mg oral tablet Dose = 1 tab(s), Oral, BID, # 1 kit(s), 0 Refill(s), [facility]: [facility] #[id number], 173, cm, 08/27/23 13:08:00 EST, Height, kg, 08/27/23 13:08:00 EST, Dosing Weight Start Date: 08/27/23 Status: Ordered Start: 06-20-2023 End: 06-21-2024 take 1 tablet by mouth once, then take 1 tablet by mouth twice daily Chantix Continuing Month 1 mg oral tablet Dose : 1 mg = 1 tab(s), Oral, BID, # 56 tab(s), 0 Refill(s), 09/27/23 1:21:00 PM EST, [facility]: [facility] #[id number], 173, cm, 08/27/23 13:08:00 EST, Height, kg, 08/27/23 13:08:00 EST, Dosing Weight Start Date: 08/27/23 Stop Date: 09/27/23 Status: Ordered Start: 06-20-2023 take 1 tablet by lion th twice daily Chantix Starter Pack 0.5 mg-1 mg oral tablet Dose = 1 tab(s), Oral, BID, # 1 kit(s), 0 Refill(s), [id number], 173, cm, 06/20/23 11:19:00 EDT, Height, kg, 06/20/23 11:19:00 EDT, Dosing Weight Start Date: 06/20/23 Status: Ordered Completed/Discontinued Medications Medication Drug Class(es) Dates Sig (Normalized) Sig (Original) acetaminophen 325 mg / HYDROcodone bitartrate 7.5 mg oral tablet (20 sources) Opioid Agonist Start: 06-20-2023 acetaminophen-hydr ocodone 325 mg-7.5 mg oral tablet 0 Refill(s), 120.6 Start Date: 06/20/23 Status: Ordered Start: 07-12-2022 acetaminophen- hydrocodone 325 mg-7.5 mg oral tablet Dose = 1 tab(s), Oral, q6hr, 0 Refill(s), 120.6 Start Date: 06/20/23 Status: Ordered Start: 07-12-2022 take 1 tablet by lion th every six hours Hydrocodone-Acetaminophen Active 1 TABLE T PO EVERY 6 HOURS July 12, 2022 12:00am Start: 03-27-2019 End: 06-02-2019 take 1 tablet by mouth every six hours as needed for pain [place] 325- 5 mg oral tablet Dose = 1 tab(s), Oral, q6h, PRN as needed for pain, # 12 tab(s), 0 Refill(s), Acute pyelonephritis Start Date: 05/30/19 Stop Date: 06/02/19 Status: Ordered take 1 tablet by lion th once HYDROcodone-acetaminophen (NORCO) 5-325 mg per tablet Take 1 tablet by mouth. 0 Active Comment on above: Take 1 tablet by lion th. acetaminophen 325 mg / oxyCODONE hydrochloride 5 mg oral tablet (2 sources) Opioid Agonist Start: 11-27-19 End: 11-30-19 take 1 tablet by mouth every four hours as needed for pain Percocet 5 mg-325 mg oral tablet Dose = 1 tab(s), Oral, q4h, PRN for pain, # 15 tab(s), 0 Refill(s), Neuralgia, 123 Start Date: 11/27/21 Stop Date: 11/30/21 Status: Ordered ARIPiprazole 10 mg oral tablet (1 source) Atypical Antipsychotic Start: 11-07-19 take 1 tablet by mouth once daily aripiprazole (ABILIFY) 10 mg ORAL tablet Take 1 tablet by mouth once daily. 30 tablet 3 11/07/2011 Active Comment on above: Take 1 tablet by lion th once daily. aspirin 81 mg oral tablet (1 source) Platelet Aggregation Inhibitor, Nonsteroidal Anti-inflammatory Drug Start: 05-20-20 12 Aspirin 81 mg Tab Indications: Chest pain 2 tabs once a day. Take with food. 0 05/20/2012 Active Comment on above: 2 tabs once a day. T varun with food. enalapril maleate 10 mg oral tablet (2 sources) Angiotensin Converting Enzyme Inhibitor Start: 07-12-20 End: 05-28-20 take 1 tablet by mouth twice daily Enalapril Maleate 10 mg tablet Discontinued 10 mg PO TWICE A DAY July 12, 2022 12:00am May 28, 2023 11:02am famotidine 20 mg oral tablet (12 sources) Histamine-2 Receptor Antagonist Start: 10-04-20 End: 10-09-20 famotidine 20 mg oral tablet Dose : 20 mg = 1 tab(s), Oral, BID, # 10 tab(s), 0 Refill(s) Start Date: 10/04/22 Stop Date: 10/09/22 Status: Ordered fluticasone propionate 0.05 mg/actuat metered dose nasal spray (1 source) Corticosteroid Start: 05-20-20 take 2 spray(s) nasal route once daily fluticasone (FLONASE) 50 mcg/actuation nasal spray Indications: Seasonal allergies Use 2 Sprays in each nostril once daily. 1 Bottle 11 05/20/2012 Active Comment on above: Use 2 Sprays in each nostril once daily. Inhalational Spacing Device (AEROCHAMBER) [facility] (1 source) Start: 05-16-20 Inhalational Spacing Device (AEROCHAMBER) [facility] Indications: Asthma 1 Device. Use with Inhaler 1 Each 0 05/16/2011 Active Comment on above: 1 Device. Use with I nhaler Labetalol (1 source) beta-Adrenergic Mir Start: 03-31-20 End: 03-31-20 labetalol Start: 03/31/24 11:30:00 AM EDT, Dose = 10 mg, = 2 mL, IV Push, Once, Stop: 03/31/24 11:23:48 AM EDT, 0, 03/31/24 11:17:00 EDT Start Date: 03/31/24 Stop Date: 03/31/24 Status: Completed LORazepam 1 mg oral tablet (1 source) Benzodiazepine Start: 05-20-20 take 1 tablet by mouth every six hours as needed LORazepam (ATIVAN) 1 mg tablet Take 1 tablet by mouth every 6 hours as needed for Anxiety (one hour before mri scan). 2 tablet 0 05/20/2012 Active Comment on above: Take 1 tablet by lion every 6 hours as needed for Anxiety (one hour before mri scan). metFORMIN hydrochloride 500 mg oral tablet (6 sources) Biguanide Start: 03-27-20 End: 04-16-20 25 take 1 tablet by mouth twice daily Metformin 500 mg tablet Discontinued 500 mg PO TWICE A DAY July 12, 2022 12:00am February 02, 2025 10:43am take 2 tablets by mo uth twice daily at mealtime metFORMIN (GLUCOPHAGE) 500 mg tablet Johnny e 1,000 mg by mouth twice daily with meals. 0 Active Comment on above: Take 1,000 mg by lion th twice daily with meals. promethazine hydrochloride 25 mg oral tablet (1 source) Phenothiazine Start: 05-20-20 12 take 1 tablet by mouth every four hours as needed promethazine (PHENERGAN) 25 mg tablet Take 1 tablet by mouth every 4 hours as needed. FOR NAUSEA 20 tablet 1 05/20/2012 Active Comment on above: Take 1 tablet by lion th every 4 hours as needed. FOR NAUSEA sertraline 100 mg oral tablet (1 source) Serotonin Reuptake Inhibitor sertraline (ZOLOFT) 100 mg tablet Take 100 mg by mouth. 0 Active Comment on above: Take 100 mg by mouth . triamcinolone acetonide 5 mg/ml topical cream (1 source) Corticosteroid Start: 09-30-20 11 triamcinolone acetonide 0.5 % TOPICAL cream Apply to affected area twice daily. Apply sparingly twice daily to control psoriasis 60 g 6 09/30/2011 Active Comment on above: Apply to affected ar ea twice daily. Apply sparingly twice daily to control psoriasis Problems Problem Classification Problem Date Documented Da te Episodic/Chronic Acute and unspecified renal failure (7 sources) Acute renal failure syndrome; Translations: [Acute kidney failure, unspecified] Onset: 06-12-2023 Episodic Asthma (19 sources) Asthma; Translations: [Unspecified asthma, uncomplicated] Onset: 05-16-2011 11-11-2015 Chronic Bacterial infection; unspecified site (12 sources) Bacteremia caused by Gram-negative bacteria; Translations: [Bacteremia] Onset: 08-19-2023 08-15-2023 Episodic Crushing injury or internal injury (14 sources) Injury of kidney 06-12-2023 Episodic Diabetes mellitus with complications (16 sources) Hyperglycemia due to type 2 diabetes mellitus; Translations: [Type 2 diabetes mellitus with hyperglycemia] Onset: 08-19-2023 06-20-2023 Chronic Diabetes mellitus without complication (6 sources) Type 2 diabetes mellitus without complication; Translations: [Type 2 diabetes mellitus without complications] Onset: 06-12-2023 Chronic Disorders of lipid metabolism (3 sources) Dyslipidemia; Translations: [Hyperlipidemia, unspecified] Onset: 02-02-2025 02-02-2025 Chronic Essential hypertension (20 sources) Hypertensive disorder; Translations: [Essential (primary) hypertension] Onset: 09-30-2011 11-11-2015 Chronic Headache; including migraine (1 source) Headache; including migraine; Translations: [Nonintractable headache, unspecified chronicity pattern, unspecified headache type] Onset: 01-11-2025 Hypertension with complications and secondary hypertension (1 source) Hypertensive urgency; Translations: [Hypertensive urgency] Onset: 01-25-2025 Chronic Mood disorders (1 source) Depressive disorder; Translations: [Depression] Onset: 05-16-2011 05-16-2011 Chronic Nausea and vomiting (16 sources) Nausea; Translations: [Nausea] Onset: 06-20-2023 06-20-2023 Episodic Nonspecific chest pain (1 source) Chest pain, unspecified; Translations: [Chest pain, unspecified type] Onset: 01-11-2025 Episodic Osteoarthritis (7 sources) Osteoarthritis; Translations: [Unspecified osteoarthritis, unspecified site] 05-28-2023 Chronic Other aftercare (1 source) 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; Translations: [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] Onset: 02-02-2025 Episodic Other connective tissue disease (1 source) Neuralgia; Translations: [Neuralgia and neuritis, unspecified] Onset: 11-27-2021 Episodic Other connective tissue disease (1 source) Disorder of soft tissue; Translations: [Other specified soft tissue disorders] Onset: 07-09-2024 Episodic Other inflammatory condition of skin (1 source) Psoriasis; Translations: [Psoriasis, unspecified] Onset: 05-16-2011 05-16-2011 Chronic Other inflammatory condition of skin (2 sources) Psoriatic arthritis; Translations: [Arthropathic psoriasis, unspecified] 05-21-2023 Chronic Other liver diseases (2 sources) Cirrhosis of liver; Translations: [Unspecified cirrhosis of liver] 08-13-2023 Chronic Other liver diseases (1 source) Unspecified cirrhosis of liver; Translations: [Cirrhosis of liver without mention of alcohol] 08-18-2023 Chronic Other nervous system disorders (1 source) Neuropathy; Translations: [Polyneuropathy, unspecified] Onset: 09-30-2011 09-30-2011 Chronic Other nervous system disorders (2 sources) Disorder of brain; Translations: [Encephalopathy, unspecified] 08-15-2023 Chronic Other nervous system disorders (1 source) Encephalopathy, unspecified; Translations: [Encephalopathy, unspecified] 08-18-2023 Chronic Other nervous system disorders (1 source) Anesthesia of skin; Translations: [Bilateral numbness and tingling of arms and legs] Onset: 01-25-2025 Episodic Other nervous system disorders (1 source) Paresthesia of skin; Translations: [Bilateral numbness and tingling of arms and legs] Onset: 01-25-2025 Episodic Other non-traumatic joint disorders (4 sources) Pain in left knee; Translations: [Left knee pain] 05-21-2023 Episodic Other non-traumatic joint disorders (1 source) Pain in unspecified knee; Translations: [Pain in joint, lower leg] 08-18-2023 Episodic Other nutritional; endocrine; and metabolic disorders (3 sources) Obesity; Translations: [Obesity, unspecified] Onset: 09-30-2011 09-30-2011 Chronic Other nutritional; endocrine; and metabolic disorders (2 sources) Body mass index 40+ - severely obese; Translations: [Morbid (severe) obesity due to excess calories] 02-02-2025 Chronic Other nutritional; endocrine; and metabolic disorders (1 source) Morbid (severe) obesity due to excess calories; Translations: [Morbid (severe) obesity due to excess calories] Onset: 02-02-2025 Chronic Other nutritional; endocrine; and metabolic disorders (1 source) Body mass index (BMI) 40.0-44.9, adult; Translations: [Body mass index [BMI] 40.0-44.9, adult] Onset: 02-02-2025 Chronic Other screening for suspected conditions (not mental disorders or infectious disease) (1 source) Abnormal results of kidney function studies; Translations: [Abnormal results of kidney function studies] Onset: 02-14-2025 Episodic Peripheral and visceral atherosclerosis (3 sources) Renal artery stenosis; Translations: [Atherosclerosis of renal artery] Onset: 02-02-2025 02-02-2025 Chronic Residual codes; unclassified (16 sources) Chronic back pain 11-11-2015 Episodic Residual codes; unclassified (13 sources) Chronic pain 06-20-2023 Episodic Septicemia (except in labor) (6 sources) Sepsis; Translations: [Other specified sepsis] Onset: 08-12-2023 Episodic Spondylosis; intervertebral disc disorders; other back problems (14 sources) Backache; Translations: [Dorsalgia, unspecified] Onset: 06-12-2023 Episodic Substance-related disorders (13 sources) Tobacco dependence syndrome; Translations: [Nicotine dependence] 06-20-2023 Chronic Comment on above: 1/2 ppd since 11yo Unclassified (13 sources) Patient encounter status 06-20-2023 Urinary tract infections (20 sources) Acute pyelonephritis; Translations: [Acute pyelonephritis] Onset: 06-12-2023 Episodic Results Test Name Value Interpretation Reference Range Facility Absolute neutrophil countOrd ered By: Onel Harrell on 02-08-2025 Neutrophils (Bld) [#/Vol] 7.5 10*3/uL 2.0-7.7 [facility] Anion gap in Serum or Plasma Ordered By: Onel Harrell on 02-08-2025 Anion gap [Moles/Vol] 12 mmol/L 5-15 [facility] BUN/creatinine ratioOrdered By: Onel Harrell on 02-08-2025 Urea nitrogen/Creatinine [Mass ratio] 16.5 mg/mg 10-20 [facility] Basophil percentageOrdered B y: Onel Harrell on 02-08-2025 Basophils/100 WBC (Bld) 0.6 % 0-1 [facility] CBC W/Diff, Automatedon 01-19 Absolute Lymph 2.42 X10 3/uL Normal 0.83-4.51 [facility] Comment on above: Order Comment: DR. Ese LLANOS ORDERD BMP DR. HARRELL ORDERED RENAL,CBCD, PROCRER Performed By: #### L 100.0100, L501.0900, [id number] #### [facility] [address] [place], [place], [address] Absolute Neut 7.5 X10 3/uL Normal 2.0-7.7 [facility] Comment on above: Order Comment: DR. Ese VERAS BMP DR. HARRELL ORDERED RENAL,CBCD, PROCRER Performed By: #### L 100.0100, L501.0900, [id number] #### [facility] [address] [place], [address] Basophils/100 WBC (Bld) 0.6 % Normal 0-1 [facility] Comment on above: Order Comment: DR. sEe VERAS BMP DR. HARRELL ORDERED RENAL,CBCD, PROCRER Performed By: #### L 100.0100, L501.0900, [id number] #### [facility] [address] [place], [address] Eosinophils/100 WBC (Bld) 2.7 % Normal 0-5 [facility] Comment on above: Order Comment: DR. Ese VERAS BMP DR. HARRELL ORDERED RENAL,CBCD, PROCRER Performed By: #### L 100.0100, L501.0900, [id number] #### [facility] [address] [place], [address] Erythrocyte distribution width (RBC) [Ratio] 13.2 % Normal 11.6-14.6 [facility] Comment on above: Order Comment: DR. Ese VERAS BMP DR. HARRELL ORDERED RENAL,CBCD, PROCRER Performed By: #### L 100.0100, L501.0900, [id number] #### [facility] [address] [place], [address] Hematocrit (Bld) [Volume fraction] 36.3 % Low 37-47 [facility] Comment on above: Order Comment: DR. Ese VERAS BMP DR. HARRELL ORDERED RENAL,CBCD, PROCRER Performed By: #### L 100.0100, L501.0900, [id number] #### [facility] [address] [place], [address] Hemoglobin (Bld) [Mass/Vol] 12.4 g/dL Normal 12.0-15.0 [facility] Comment on above: Order Comment: DR. Ese VERAS BMP DR. HARRELL ORDERED RENAL,CBCD, PROCRER Performed By: #### L 100.0100, L501.0900, [id number] #### [facility] [address] [place], [address] IG% 0.300 Normal 0.0-0.9 [facility] Comment on above: Order Comment: DR. Ese VERAS BMP DR. HARRELL ORDERED RENAL,CBCD, PROCRER Result Comment: IG% - Immature Granulocytes (promyelocytes, myelocytes and metamyelocytes) > 1% indicates that a LEFT SHIFT is Present. Performed By: #### L 100.0100, L501.0900, [id number] #### [facility] [address] [place], [address] Lymphocytes/100 WBC (Bld) 21.9 % Normal 19-41 [facility] Comment on above: Order Comment: DR. Ese VERAS BMP DR. HARRELL ORDERED RENAL,CBCD, PROCRER Performed By: #### L 100.0100, L501.0900, [id number] #### [facility] [address] [place], [address] MCH (RBC) [Entitic mass] 30.7 pg Normal 27.0-32.0 [facility] Comment on above: Order Comment: DR. Ese VERAS BMP DR. HARRELL ORDERED RENAL,CBCD, PROCRER Performed By: #### L 100.0100, L501.0900, [id number] #### [facility] [address] [place], [address] MCHC (RBC) [Mass/Vol] 34.2 g/dL Normal 32-36 [facility] Comment on above: Order Comment: DR. Ese VERAS BMP DR. HARRELL ORDERED RENAL,CBCD, PROCRER Performed By: #### L 100.0100, L501.0900, [id number] #### [facility] [address] [place], [address] MCV (RBC) [Entitic vol] 89.9 fL Normal 81-99 [facility] Comment on above: Order Comment: DR. Ese VERAS BMP DR. HARRELL ORDERED RENAL,CBCD, PROCRER Performed By: #### L 100.0100, L501.0900, [id number] #### [facility] [address] [place], [address] Monocytes/100 WBC (Bld) 6.9 % Normal 0-10 [facility] Comment on above: Order Comment: DR. Ese VERAS BMP DR. HARRELL ORDERED RENAL,CBCD, PROCRER Performed By: #### L 100.0100, L501.0900, [id number] #### [facility] [address] [place], [address] Neutrophils/100 WBC (Bld) 67.6 % Normal 47-70 [facility] Comment on above: Order Comment: DR. Ese VERAS BMP DR. HARRELL ORDERED RENAL,CBCD, PROCRER Performed By: #### L 100.0100, L501.0900, [id number] #### [facility] [address] [place], [address] Nucleated RBC (Bld) [#/Vol] 0 10*3/uL Normal 0-5 [facility] Comment on above: Order Comment: DR. Ese VERAS BMP DR. HARRELL ORDERED RENAL,CBCD, PROCRER Performed By: #### L 100.0100, L501.0900, [id number] #### [facility] [address] [place], [address] Platelet mean volume (Bld) [Entitic vol] 11.1 fL Normal 6.2-12.0 [facility] Comment on above: Order Comment: DR. Ese VERAS BMP DR. HARRELL ORDERED RENAL,CBCD, PROCRER Performed By: #### L 100.0100, L501.0900, [id number] #### [facility] [address] [place], [address] Platelets (Bld) [#/Vol] 141 10*3/uL Low 150-450 [facility] Comment on above: Order Comment: DR. Ese VERAS BMP DR. HARRELL ORDERED RENAL,CBCD, PROCRER Performed By: #### L 100.0100, L501.0900, [id number] #### [facility] [address] [place], [address] RBC (Bld) [#/Vol] 4.04 10*6/uL Low 4.2-5.4 [facility] Comment on above: Order Comment: DR. Ese VERAS BMP DR. HARRELL ORDERED RENAL,CBCD, PROCRER Performed By: #### L 100.0100, L501.0900, [id number] #### [facility] [address] [place], [address] RDW SD 43.7 fl Normal 35.1-43.9 [facility] Comment on above: Order Comment: DR. Ese VERAS BMP DR. HARRELL ORDERED RENAL,CBCD, PROCRER Performed By: #### L 100.0100, L501.0900, [id number] #### [facility] [address] [place], [address] WBC (Bld) [#/Vol] 11.1 10*3/uL High 4.4-11.0 [facility] Comment on above: Order Comment: DR. Ese LLANOS ORDERD BMP DR. HARRELL ORDERED RENAL,CBCD, PROCRER Performed By: #### L 100.0100, L501.0900, [id number] #### [facility] [address] [place], [address] Carbon dioxide, total [Moles /volume] in Central venous bloodOrdered By: Onel Harrell on 02-08-2025 CO2 [Moles/Vol] 19.7 mmol/L Low 21.0-32.0 [facility] Chloride assayOrdered By: Az Harrell on 02-08-2025 Chloride [Moles/Vol] 103 mmol/L 98-108 [facility] Creatinine Unsp time (U) [Ma ss/Vol]Ordered By: Onel Harrell on 02-08-2025 Creatinine (U) [Mass/Vol] 51.20 mg/dL 28.00-217.0 0 [facility] Eosinophil percentageOrdered By: Onel Harrell on 02-08-2025 Eosinophils/100 WBC (Bld) 2.7 % 0-5 [facility] Erythrocyte distribution wid th (RBC) [Ratio]Ordered By: Onel Harrell on 02-08-2025 Erythrocyte distribution width (RBC) [Entitic vol] 43.7 fL 35.1-43.9 [facility] Erythrocyte distribution wid th ratioOrdered By: Onel Harrell on 02-08-2025 Erythrocyte distribution width (RBC) [Ratio] 13.2 % 11.6-14.6 [facility] GFR/1.73 sq M.predicted timoteo g non-blacks MDRD (S/P/Bld) [Vol rate/Area]Ordered By: Onel Harrell on 02-08-2025 Estimated GFR (MDRD) Non-Af Amer 65 >60 [facility] Comment on above: mL/min/1.73m2 CKD-EP I Creatinine Equation (2020) Hematocrit Auto (Bld) [Volum e fraction]Ordered By: Onel Harrell on 02-08-2025 Hematocrit (Bld) [Volume fraction] 36.3 % Low 37-47 [facility] Hemoglobin measurementOrdere d By: Onel Barbozasing on 02-08-2025 Hemoglobin (Bld) [Mass/Vol] 12.4 g/dL 12.0-15.0 [facility] Immature granulocytes/100 WB C Auto (Bld)Ordered By: pk Whitleymarie on 02-08-2025 Immature granulocytes/100 WBC (Bld) 0.300 % 0.0-0.9 [facility] Comment on above: IG% - Immature Granu locytes (promyelocytes, myelocytes and metamyelocytes) > 1% indicates that a LEFT SHIFT is Present. Lymphocytes Auto (Unsp spec) [#/Vol]Ordered By: pk Whitleyvladsinflorencia on 02-08-2025 Lymphocytes (Bld) [#/Vol] 2.42 10*3/uL 0.83-4.51 [facility] Lymphocytes/100 WBC Auto (Un sp spec)Ordered By: pk Harrell on 02-08-2025 Lymphocytes/100 WBC (Bld) 21.9 % 19-41 [facility] MCV (mean corpuscular volume ) determinationOrdered By: pk Whitleyvladsing on 02-08-2025 MCV (RBC) [Entitic vol] 89.9 fL 81-99 [facility] Mean corpuscular hemoglobin (MCH) determinationOrdered By: [facility] Gutierrezwarsing on 02-08-2025 MCH (RBC) [Entitic mass] 30.7 pg 27.0-32.0 [facility] Mean corpuscular hemoglobin concentration (MCHC) determinationOrdered By: [facility] Gutierrezwarsing on 02-08-2025 MCHC (RBC) [Mass/Vol] 34.2 g/dL 32-36 [facility] Mean platelet volume determi nationOrdered By: [facility] Whitleywarsing on 02-08-2025 Platelet mean volume (Bld) [Entitic vol] 11.1 fL 6.2-12.0 [facility] Monocyte percentageOrdered B y: pk Kleinwarsing on 02-08-2025 Monocytes/100 WBC (Bld) 6.9 % 0-10 [facility] Neutrophil percentageOrdered By: Onel Harrell on 02-08-2025 Neutrophils/100 WBC (Bld) 67.6 % 47-70 [facility] Nucleated red blood cell per centageOrdered By: Onel Harrell on 02-08-2025 Nucleated RBC/100 WBC (Bld) [Ratio] 0 % 0-5 [facility] Platelet countOrdered By: Az Harrell on 02-08-2025 Platelets (Bld) [#/Vol] 141 10*3/uL Low 150-450 [facility] Potassium (Unsp spec) [Mass/ Vol]Ordered By: Onel Harrell on 02-08-2025 Potassium [Moles/Vol] 4.3 mmol/L 3.3-5.1 [facility] Protein+Creatinine Ratio,Uri neon 02-08-2025 PROT:CRE RATIO 244 mg/g CRE High 0-200 [facility] Comment on above: Order Comment: DR. Ese VERAS BMP DR. HARRELL ORDERED RENAL,CBCD, PROCRER Performed By: #### L 100.0100, L501.0900, [id number] #### [facility] [address] [place], [address] Protein (U) [Mass/Vol] 12.5 mg/dL High 0.0-12.0 [facility] Comment on above: Order Comment: DR. Ese VERAS BMP DR. HARRELL ORDERED RENAL,CBCD, PROCRER Performed By: #### L 100.0100, L501.0900, [id number] #### [facility] [address] [place], [address] UR CREAT 51.20 mg/dL Normal 28.00-217.0 0 [facility] Comment on above: Order Comment: DR. Ese VERAS BMP DR. HARRELL ORDERED RENAL,CBCD, PROCRER Performed By: #### L 100.0100, L501.0900, [id number] #### [facility] [address] [place], [address] Protein/Creatinine (U) [Mass ratio]Ordered By: Onel Harrell on 02-08-2025 Urine Protein/Creatinine Ratio 244 mg/g CRE High 0-200 [facility] RBC Auto (Bld) [#/Vol]Ordere d By: Onel Harrell on 02-08-2025 RBC (Bld) [#/Vol] 4.04 10*6/uL Low 4.2-5.4 [facility] Renal Profileon 02-08-2025 BUN Normal 4-19 [facility] Comment on above: Order Comment: DR. Ese VERAS BMP DR. HARRELL ORDERED RENAL,CBCD, PROCRER Performed By: #### L 100.0100, L501.0900, [id number] #### [facility] [address] [place], [address] BUN/CRE Normal 10-20 [facility] Comment on above: Order Comment: DR. Ese VERAS BMP DR. HARRELL ORDERED RENAL,CBCD, PROCRER Performed By: #### L 100.0100, L501.0900, [id number] #### [facility] [address] [place], [address] Calcium Normal 7.6-11.0 [facility] Comment on above: Order Comment: DR. Ese VERAS BMP DR. HARRELL ORDERED RENAL,CBCD, PROCRER Performed By: #### L 100.0100, L501.0900, [id number] #### [facility] [address] [place], [address] CL Normal 98-108 [facility] Comment on above: Order Comment: DR. Ese VERAS BMP DR. HARRELL ORDERED RENAL,CBCD, PROCRER Performed By: #### L 100.0100, L501.0900, [id number] #### [facility] [address] [place], [address] CO2 Normal 21.0-32.0 [facility] Comment on above: Order Comment: DR. Ese VERAS BMP DR. HARRELL ORDERED RENAL,CBCD, PROCRER Performed By: #### L 100.0100, L501.0900, [id number] #### [facility] [address] [place], [address] CREAT,SERUM Normal 0.70-1.20 [facility] Comment on above: Order Comment: DR. Ese VERAS BMP DR. HARRELL ORDERED RENAL,CBCD, PROCRER Performed By: #### L 100.0100, L501.0900, [id number] #### [facility] [address] [place], [address] eGFR Normal >60 [facility] Comment on above: Order Comment: DR. Ese VERAS BMP DR. HARRELL ORDERED RENAL,CBCD, PROCRER Result Comment: mL/m in/1.73m2 CKD-EPI Creatinine Equation (2020) Performed By: #### L 100.0100, L501.0900, [id number] #### [facility] [address] [place], [address] GAP Normal 5-15 [facility] Comment on above: Order Comment: DR. Ese VERAS BMP DR. HARRELL ORDERED RENAL,CBCD, PROCRER Performed By: #### L 100.0100, L501.0900, [id number] #### [facility] [address] [place], [address] GLU Normal 70-99 [facility] Comment on above: Order Comment: DR. Ese VERAS BMP DR. HARRELL ORDERED RENAL,CBCD, PROCRER Performed By: #### L 100.0100, L501.0900, [id number] #### [facility] [address] [place], [address] Potassium Normal 3.3-5.1 [facility] Comment on above: Order Comment: DR. Ese VERAS BMP DR. HARRELL ORDERED RENAL,CBCD, PROCRER Performed By: #### L 100.0100, L501.0900, [id number] #### [facility] [address] [place], [address] Renal Profile Normal 133-145 [facility] Comment on above: Order Comment: DR. Ese VERAS BMP DR. HARRELL ORDERED RENAL,CBCD, PROCRER Performed By: #### L 100.0100, L501.0900, [id number] #### [facility] [address] [place], [address] Serum creatinine measurement (mass/volume)Ordered By: Onel Harrell on 02-08-2025 Creatinine [Mass/Vol] 1.01 mg/dL 0.70-1.20 [facility] Serum glucose measurement (m ass/volume)Ordered By: Onel Harrell on 02-08-2025 Glucose [Mass/Vol] 120 mg/dL High 70-99 [facility] Serum or plasma albumin avtar urement (mass/volume)Ordered By: Onel Harrell on 02-08-2025 Albumin [Mass/Vol] 3.7 g/dL 3.5-5.0 [facility] Serum or plasma calcium avtar urement (mass/volume)Ordered By: Onel Harrell on 02-08-2025 Calcium [Mass/Vol] 9.1 mg/dL 7.6-11.0 [facility] Serum or plasma urea nitroge n measurement (mass/volume)Ordered By: Onel Harrell on 02-08-2025 Urea nitrogen [Mass/Vol] 17 mg/dL 4-19 [facility] Serum phosphorus measurement Ordered By: Onel Harrell on 02-08-2025 Phosphorus Level 3.5 mg/dL 2.7-4.5 [facility] Sodium levelOrdered By: Chris Harrell on 02-08-2025 Sodium [Moles/Vol] 135 mmol/L 133-145 [facility] Urine protein measurement (m ass/volume)Ordered By: Onel Harrell on 02-08-2025 Protein (U) [Mass/Vol] 12.5 mg/dL High 0.0-12.0 [facility] White blood cell (WBC) count Ordered By: Onel Harrell on 02-08-2025 WBC (Bld) [#/Vol] 11.1 10*3/uL High 4.4-11.0 [facility] Cardiology Visit Reporton Cardiology Visit Report [facility] [address] [place] [address] OFFICE VISIT Date of Service: 02/02/25 MR#: [id number] Acct: [id number] Name: NADIA ANGLIN Rep #: [id number] : 1970 Provider: Dr. Vanesa Brown MD Age/Sex: 54/F [place] [facility] [place] Status: Signed HPI HPI History of Present Illness Details: This lady with past medical history significant for hypertension, obesity and diabetes mellitus recently had problems with control of her blood pressure. She was diagnosed with renal artery stenosis at [facility]. According to her, she has had renal artery stenting done there. Her blood pressure has since improved but not completely controlled. Denies any chest pains. Some shortness of breath with exertion. No orthopnea or PND. Occasional ankle edema. 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 Accompanied by: boyfriend Is patient in pain?: Yes (chronic foot/knee/back; unchanged) Allergies coconut Allergy (Severe, Verified 02/02/25 10:40) Anaphylaxis erythromycin base Allergy (Intermediate, Verified 02/02/25 10:40) Other sulfamethoxazole Allergy (Intermediate, Verified 02/02/25 10:40) Other codeine Allergy (Unknown, Verified 02/02/25 10:40) unknown epinephrine (From Primatene Mist) Allergy (Unknown, Verified 02/02/25 10:40) unknown Medications ???Medication ???Instructions ???Recorded ???Confirmed ???Type albuterol sulfate 2.5 mg/3 mL 2.5 mg inhalation Q4H PRN 07/12/22 02/02/25 History (0.083 %) solution for nebulization albuterol sulfate 90 mcg/actuation 2 puff inhalation Q6H PRN asthma 07/12/22 02/02/25 History aerosol inhaler cyclobenzaprine 10 mg tablet 10 mg PO TID PRN 07/12/22 02/02/25 History gabapentin 600 mg tablet 600 mg PO BID back pain 07/12/22 0 02/02/25 History hydrocodone 7.5 mg-acetaminophen 1 tab PO Q6H PRN back pain 2 02/02/25 History 325 mg tablet omeprazole 20 mg tablet,delayed 20 mg PO BID PRN 05/28/23 05/21/23 History release lisinopril 10 mg tablet 10 mg PO DAILY blood pressure 07/2102/02/25 History loratadine 10 mg tablet 10 mg PO DAILY PRN allergies 08/1202/02/25 History amlodipine 10 mg tablet 10 mg PO QDAY 02/02/25 02/02/25 Hi story atorvastatin 40 mg tablet 40 mg PO QHS 02/02/25 02/02/25 His tory clopidogrel 75 mg tablet 75 mg PO QDAY 02/02/25 02/02/25 Hi story insulin glargine 100 unit/mL (3 15 - 18 unit subcut QPM diabetes 0 02/02/25 02/02/25 History mL) subcutaneous pen (Lantus Solostar U-100 Insulin) lisinopril 40 mg tablet 40 mg PO QDAY 02/02/25 02/02/25 Hi story metoprolol tartrate 50 mg tablet 50 mg PO BID 02/02/25 02/02/25 His tory Ejection fraction %: 55 Have you fallen in the past year?: No PFSH Medical History (Updated 02/02/25 @ 11:[address] Vanesa Brown MD) History of stent insertion of renal artery Cirrhosis of liver Chronic headaches Atypical chest pain Chronic back pain Left knee pain Psoriatic arthritis Obesity Right knee DJD Arthritis Psoriasis Spinal stenosis Neuropathy Depression Diabetes Hypertension Asthma Surgical History Hx of tubal ligation History of section Family History Father CAD (coronary artery disease) Myocardial infarction, Onset Age: 62 Other Arthritis CVA (cerebral vascular accident) Cancer Hypertension Social History household members: spouse Smoking Status: Current every day smoker tobacco type: cigarettes alcohol intake: current alcohol intake frequency: holidays/special occasions only substance use type: does not use caffeine: Yes Type: coffee Number of servings: 1 ROS Const Const: Positive for fatigue and weakness; Negative for headache(s) or weight gain ENT ENT: Positive for dizziness (vertigo per pt) and balance problems; Negative for headache(s) or Nosebleed/epistaxis Cardio Chest Pain: Yes (not recently per pt) Frequency: other (every 3 months) Palpitations: Yes feels like its: other (murmur) Edema: Bilateral (+1 BLE) Muscle aches with walking: None Additional Details: pt states it could be anxiety. Typically occurs at HS Resp Respiratory: Positive for SOB with activity, SOB at rest and SOB orthopnea SOB lying down (doesn't lay flat due to orthopnea) GI GI: Positive for nausea (w/ pain medications) and heartburn; Negative vomiting Mus (more content not included)... Normal [facility] ALLIED HEALTHon 01-25-2025 ALLIED HEALTH HNO ID: [id number] Author: RONEN BALLESTEROS RT(Ese) Service: Radiology Author Type: Technologist Type: Allied Health Filed: 01/25/2025 13:02 Note Text: Summary: CT Radiology Service Progress Note PATIENT NAME: Nadia Anglin DATE OF SERVICE: January 25, 2025 TIME: 1:02 PM PATIENT IDENTITY VERIFICATION COMPLETED USING TWO (2) IDENTIFIERS: Name and Date of confirmed by patient verbally and Name and Date of confirmed by identification band. FALL SCREENING: Has the patient had 2 falls in the last year or 1 fall with injury or currently using an Ambulatory Assistive Device (Walker, Cane, Wheelchair, Crutches, etc.)? Emergency Room Patient: Screened in ED PATIENT GENDER DATA: Assigned female at . status: : No status: NO. PATIENT RELEVANT IMPLANT DATA REVIEWED: Not Applicable PATIENT PRESENTS WITH AN IMPLANTABLE OR ATTACHED CERTIFIED MEDICAL AIDE: No RADIOLOGY DEPARTMENT: CT; Exam(s) Completed: Brain PERIPHERAL IV DATA: Not applicable SIGNED BY: RT Carleen(R) January 25, 2025 1:[address] [facility] Basic metabolic 2000 panelon 01-25-2025 Anion gap [Moles/Vol] 7 mmol/L Normal 5-16 [facility] Comment on above: Order Comment: Lacey coleman Type: BLOOD SPECIMEN Ordering Facility: [facility] Address: [address] [place] [address] Performed By: #### 5 7021-8 #### [facility] CLIA [id number] [address] [place] [address] [place] Calcium [Mass/Vol] 9.5 mg/dL Normal 8.5-10.5 [facility] Comment on above: Order Comment: Lacey coleman Type: BLOOD SPECIMEN Ordering Facility: [facility] Address: [address] [place] [address] Performed By: #### 5 7021-8 #### [facility] CLIA [id number] [address] [place], [place] [address] [place] Chloride [Moles/Vol] 105 mmol/L Normal 98-107 [facility] Comment on above: Order Comment: Speci men Type: BLOOD SPECIMEN Ordering Facility: [facility] Address: [address] [place] [address] Performed By: #### 5 7021-8 #### [facility] CLIA [id number] [address] [place], [place] [address] [place] CO2 [Moles/Vol] 23 mmol/L Normal 21-32 [facility] Comment on above: Order Comment: Speci men Type: BLOOD SPECIMEN Ordering Facility: [facility] Address: [address] [place] [address] Performed By: #### 5 7021-8 #### [facility] CLIA [id number] [address] [place], [place] [address] [place] Creatinine [Mass/Vol] 1.07 mg/dL High 0.51-0.95 [facility] Comment on above: Order Comment: Speci men Type: BLOOD SPECIMEN Ordering Facility: [facility] Address: [address] [place] [address] Result Comment: Livia ents receiving either N-Acetylcysteine (NAC) or Metamizole prior to venipuncture, may have falsely depressed results. Performed By: #### 5 7021-8 #### [facility] CLIA [id number] [address] [place] [address] [place] Creatinine and Glomerular filtration rate.predicted panel (S/P/Bld) 61 mL/min/1.73m??? Normal >=60 [facility] Comment on above: Order Comment: Speci men Type: BLOOD SPECIMEN Ordering Facility: [facility] Address: [address] [place] [address] Result Comment: Jazmin mated Glomerular Filtration Rate (eGFR) is calculated using the 2020 CKD-EPI creatinine equation. This equation utilizes serum creatinine, sex, and age as parameters. The creatinine assay has traceable calibration to isotope dilution-mass spectrometry. Refer to KDIGO guidelines for clinical interpretation. In patients with unstable renal function, e.g. those with acute kidney injury, the eGFR may not accurately reflect actual GFR. Performed By: #### 5 7021-8 #### [facility] CLIA [id number] [address] [place] [address] [place] Glucose [Mass/Vol] 188 mg/dL High 70-100 [facility] Comment on above: Order Comment: Lacey coleman Type: BLOOD SPECIMEN Ordering Facility: [facility] Address: [address] [id number] Result Comment: The [place] Diabetes Association (ADA) provides guidance for cutoff values for fasting glucose and random glucose. The ADA defines fasting as no caloric intake for at least 8 hours. Fasting plasma glucose results between 100 to 125 mg/dL indicate increased risk for diabetes (prediabetes). Fasting plasma glucose results greater than or equal to 126 mg/dL meet the criteria for diagnosis of diabetes. In the absence of unequivocal hyperglycemia, results should be confirmed by repeat testing. In a patient with classic symptoms of hyperglycemia or hyperglycemic crisis, random plasma glucose results greater than or equal to 200 mg/dL meet the criteria for diagnosis of diabetes. Reference: Standards of Medical Care in Diabetes 2016, [place] Diabetes Association. Diabetes Care. 2016.39(Suppl 1). Results may be falsely elevated after the administration of Sulfapyridine. Results may be falsely depressed after the administration of Sulfasalazine. Performed By: #### 5 7021-8 #### [facility] CLIA [id number] [address] [place] [address] [place] Potassium [Moles/Vol] 5.2 mmol/L High 3.5-5.1 [facility] Comment on above: Order Comment: Lacey coleman Type: BLOOD SPECIMEN Ordering Facility: [facility] Address: [address] [place] [address] Performed By: #### 5 7021-8 #### [facility] CLIA [id number] [address] [place] [address] [place] Sodium [Moles/Vol] 135 mmol/L Low 136-145 [facility] Comment on above: Order Comment: Speci men Type: BLOOD SPECIMEN Ordering Facility: [facility] Address: [address] [place] [address] Performed By: #### 5 7021-8 #### [facility] CLIA [id number] [address] [place] [address] [place] Urea nitrogen [Mass/Vol] 22 mg/dL Normal 7- [facility] Comment on above: Order Comment: Speci men Type: BLOOD SPECIMEN Ordering Facility: [facility] Address: [address] [place] [address] Performed By: #### 5 7021-8 #### [facility] CLIA [id number] [address] [place] [address] [place] CBC W Auto Differential pane l (Bld)on 01-25-2025 Basophils (Bld) [#/Vol] 0.07 10*3/uL Normal <0.11 [facility] Comment on above: Order Comment: Speci men Type: BLOOD SPECIMEN Ordering Facility: [facility] Address: [address] [place] [address] Performed By: #### 5 7021-8 #### [facility] CLIA [id number] [address] [place] [address] [place] Basophils/100 WBC (Bld) 0.8 % Normal [facility] Comment on above: Order Comment: Speci men Type: BLOOD SPECIMEN Ordering Facility: [facility] Address: [address] [place] [address] Performed By: #### 5 7021-8 #### [facility] CLIA [id number] [address] [place] [address] STATES [facility] Differential cell count method Nom (Bld) Auto Normal [facility] Comment on above: Order Comment: Speci men Type: BLOOD SPECIMEN Ordering Facility: [facility] Address: [address] [place] [address] Performed By: #### 5 7021-8 #### [facility] CLIA [id number] [address] [place] [address] [place] Eosinophils (Bld) [#/Vol] 0.23 10*3/uL Normal <0.46 [facility] Comment on above: Order Comment: Speci men Type: BLOOD SPECIMEN Ordering Facility: [facility] Address: [address] [place] [address] Performed By: #### 5 7021-8 #### [facility] CLIA [id number] [address] [place] [address] [place] Eosinophils/100 WBC (Bld) 2.7 % Normal [facility] Comment on above: Order Comment: Speci men Type: BLOOD SPECIMEN Ordering Facility: [facility] Address: [address] [place] [address] Performed By: #### 5 7021-8 #### [facility] [place] [id number] [address] [place] [address] [place] Erythrocyte distribution width (RBC) [Ratio] 13.4 % Normal 11.5-15.0 [facility] Comment on above: Order Comment: Speci men Type: BLOOD SPECIMEN Ordering Facility: [facility] Address: [address] [place] [address] Performed By: #### 5 7021-8 #### [facility] CLIA [id number] [address] [place] [address] [place] Hematocrit (Bld) [Volume fraction] 37.4 % Normal 36.0-46.0 [facility] Comment on above: Order Comment: Speci men Type: BLOOD SPECIMEN Ordering Facility: [facility] Address: [address] [place] [address] Performed By: #### 5 7021-8 #### [facility] CLIA [id number] [address] [place] [address] [place] Hemoglobin (Bld) [Mass/Vol] 12.4 g/dL Normal 11.5-15.5 [facility] Comment on above: Order Comment: Speci men Type: BLOOD SPECIMEN Ordering Facility: [facility] Address: [address] [place] [address] Performed By: #### 5 7021-8 #### [facility] CLIA [id number] [address] [place] [address] [place] Immature granulocytes (Bld) [#/Vol] 0.04 10*3/uL Normal <0.10 [facility] Comment on above: Order Comment: Speci men Type: BLOOD SPECIMEN Ordering Facility: [facility] Address: [address] [place] [address] Performed By: #### 5 7021-8 #### [facility] CLIA [id number] [address] [place] [address] [place] Immature granulocytes/100 WBC (Bld) 0.5 % Normal [facility] Comment on above: Order Comment: Speci men Type: BLOOD SPECIMEN Ordering Facility: [facility] Address: [address] [place] [address] Performed By: #### 5 7021-8 #### [facility] CLIA [id number] [address] [place] [address] [place] Lymphocytes (Bld) [#/Vol] 1.88 10*3/uL Normal 1.00-4.00 [facility] Comment on above: Order Comment: Speci men Type: BLOOD SPECIMEN Ordering Facility: [facility] Address: [address] [place] [address] Performed By: #### 5 7021-8 #### [facility] CLIA [id number] [address] [place] [address] [place] Lymphocytes/100 WBC (Bld) 22.1 % Normal [facility] Comment on above: Order Comment: Speci men Type: BLOOD SPECIMEN Ordering Facility: [facility] Address: [address] [place] [address] Performed By: #### 5 7021-8 #### [facility] CLIA [id number] [address] [place] [address] [place] MCH (RBC) [Entitic mass] 30.2 pg Normal 26.0-34.0 [facility] Comment on above: Order Comment: Speci men Type: BLOOD SPECIMEN Ordering Facility: [facility] Address: [address] [place] [address] Performed By: #### 5 7021-8 #### [facility] CLIA [id number] [address] [place] [place] [address] [place] MCHC (RBC) [Mass/Vol] 33.2 g/dL Normal 30.5-36.0 [facility] Comment on above: Order Comment: Speci men Type: BLOOD SPECIMEN Ordering Facility: [facility] Address: [address] [place] [address] Performed By: #### 5 7021-8 #### [facility] CLIA [id number] [address] [place] [address] [place] MCV (RBC) [Entitic vol] 91.0 fL Normal 80.0-100.0 [facility] Comment on above: Order Comment: Speci men Type: BLOOD SPECIMEN Ordering Facility: [facility] Address: [address] [place] [address] Performed By: #### 5 7021-8 #### [facility] CLIA [id number] [address] [place] [address] [facility] [place] Monocytes (Bld) [#/Vol] 0.57 10*3/uL Normal <0.87 [facility] Comment on above: Order Comment: Speci men Type: BLOOD SPECIMEN Ordering Facility: [facility] Address: [address] [place] [address] Performed By: #### 5 7021-8 #### [facility] CLIA [id number] [address] [place] [address] [place] Monocytes/100 WBC (Bld) 6.7 % Normal [facility] Comment on above: Order Comment: Speci men Type: BLOOD SPECIMEN Ordering Facility: [facility] Address: [address] [place] [address] Performed By: #### 5 7021-8 #### [facility] CLIA [id number] [address] [place] [address] [place] Neutrophils (Bld) [#/Vol] 5.71 10*3/uL Normal 1.45-7.50 [facility] Comment on above: Order Comment: Speci men Type: BLOOD SPECIMEN Ordering Facility: [facility] Address: [address] [place] [address] Performed By: #### 5 7021-8 #### [facility] CLIA [id number] [address] [place] [address] [place] Neutrophils/100 WBC (Bld) 67.2 % Normal [facility] Comment on above: Order Comment: Speci men Type: BLOOD SPECIMEN Ordering Facility: [facility] Address: [address] [place] [address] Performed By: #### 5 7021-8 #### [facility] CLIA [id number] [address] [place] [address] [place] Nucleated RBC (Bld) [#/Vol] 10*3/uL Normal <0.01 [facility] Comment on above: Order Comment: Speci men Type: BLOOD SPECIMEN Ordering Facility: [facility] Address: [address] [place] [address] Performed By: #### 5 7021-8 #### [facility] CLIA [id number] [address] [place] [address] [place] Nucleated RBC/100 WBC (Bld) [Ratio] 0.0 /[address] [facility] Comment on above: Order Comment: Speci men Type: BLOOD SPECIMEN Ordering Facility: [facility] Address: [address] [place] [address] Performed By: #### 5 7021-8 #### [facility] CLIA [id number] [address] [place] [address] [place] Platelet mean volume (Bld) [Entitic vol] 10.8 fL Normal 9.0-12.7 [facility] Comment on above: Order Comment: Speci men Type: BLOOD SPECIMEN Ordering Facility: [facility] Address: [address] [place] [address] Performed By: #### 5 7021-8 #### [facility] CLIA [id number] [address] [place] [address] [place] Platelets (Bld) [#/Vol] 131 10*3/uL Low 150-400 [facility] Comment on above: Order Comment: Speci men Type: BLOOD SPECIMEN Ordering Facility: [facility] Address: [address] [place] [address] Result Comment: No c lot detected. Performed By: #### 5 7021-8 #### [facility] CLIA [id number] [address] [place] [address] [place] RBC (Bld) [#/Vol] 4.11 10*6/uL Normal 3.90-5.20 [facility] Comment on above: Order Comment: Speci men Type: BLOOD SPECIMEN Ordering Facility: [facility] Address: [address] [place] [address] Performed By: #### 5 7021-8 #### [facility] CLIA [id number] [address] [place] [address] OF [facility] WBC (Bld) [#/Vol] 8.50 10*3/uL Normal 3.70-11.00 [facility] Comment on above: Order Comment: Speci men Type: BLOOD SPECIMEN Ordering Facility: [facility] Address: [address] [place] [address] Performed By: #### 5 7021-8 #### [facility] CLIA [id number] [address] [place] [address] [facility] CT BRAIN WO IVCONon 01-26-[address] BRAIN WO IVCON * * *Final Report* * * DATE OF EXAM: Jan 25 2025 1:04PM [facility] 0504 - CT BRAIN WO IVCON / PROCEDURE REASON: numbness * * * * Physician Interpretation * * * * EXAMINATION: CT BRAIN WO IVCON CLINICAL HISTORY: Numbness. TECHNIQUE: Serial axial images without IV contrast were obtained from the vertex to the foramen magnum. MQ: CTBWO_3 CT Radiation dose: Integrated Dose-Length Product (DLP) for this visit = 770.97 mGy*cm CT Dose Reduction Employed: Automated exposure control(AEC) and iterative recon COMPARISON: CT scan 01/11/2025 RESULT: Post-operative change: None. Acute change: No evidence of an acute infarct or other acute parenchymal process. Hemorrhage: No evidence of acute intracranial hemorrhage. ECASS hemorrhagic transformation score: Not Applicable Mass Lesion / Mass Effect: There is no evidence of an intracranial mass or extraaxial fluid collection. No significant mass effect. Chronic change: None apparent. Parenchyma: There is no significant volume loss. The brain parenchyma is otherwise within normal limits for age. Ventricles: The ventricles are within normal limits of size and configuration for age. Paranasal sinuses and skull base: The visualized paranasal sinuses are grossly clear. The skull base and imaged soft tissues are unremarkable. Localizer images: No acute findings IMPRESSION: No acute intracranial process. Senior Economist: RAYMON Transcribe Date/Time: Jan 25 2025 2:17P Dictated by : MEHNAZ RABAGO MD This examination was interpreted and the report reviewed and electronically signed by: MEHNAZ RABAGO MD on Jan 25 2025 2:29PM EST [id number] Normal [facility] ECG COMPLETEon 01-25-2025 ECG COMPLETE Ventricular Rate : 8 0 BPM Atrial Rate : 80 BPM P-R Interval : 148 ms QRS Duration : 82 ms Q-T Interval : 378 ms QTC Calculation(Bazett) : 435 ms Calculated P Bogart : 53 degrees Calculated R Bogart : 81 degrees Calculated T Bogart : 24 degrees Normal sinus rhythm Normal ECG When compared with ECG of 13-Jan-2025 01:51, Nonspecific T wave abnormality, improved in Inferior leads Confirmed by NIDA ADAM MD ([id number]) on 01/27/2025 3:40:53 PM NAME : NADIA ANGLIN PID : [id number] : 1970 Gender : Female Race : ORD : [id number] Procedure Date : Jan 25 2025 11:49:19 Edit Date : Jan 27 2025 15:40:54 Diagnosis: Normal sinus rhythm Normal ECG When compared with ECG of 13-Jan-2025 01:51, Nonspecific T wave abnormality, improved in Inferior leads Confirmed by NIDA ADAM MD ([id number]) on 01/27/2025 3:40:53 PM Test Reason : stat Location : 0 : ED EDFTE Overread By : NIDA ADAM MD Edited By : NIDA ADAM MD Referred By : , Acquired by : [id number], [facility] ED NOTEon 01-25-2025 ED NOTE HNO ID: [id number] Author: ELIZABETH LYNNE, ROC Service: ? Author Type: Registered Nurse Type: ED Notes Filed: 01/25/2025 21:43 Note Text: Patient requesting to leave because she does not want to stay and wait for a bed upstairs. This RN educated patient on risks of leaving AMA. Admitting physician notified and said said to have her fill out the AMA form. AMA form signed by patient at 2140. [facility] ED NOTE HNO ID: [id number] Author: BRINDA BHAKTA, ROC Service: ? Author Type: Registered Nurse Type: ED Notes Filed: 01/25/2025 18:13 Note Text: Pt states had surgery last Friday, states had an artery unclogged in her right kidney. States yesterday started noticing some numbness and tingling in her legs. States at one point she got up last night to pee and almost fell because her legs were asleep. States she also has some numbness and tingling in her hands as well. States she thought it was her carpel tunnel but states it is worse today. Pt states she also has noticed her BP has been fluctuating. States she is on a bunch of medications for her BP and has been taking them as instructed but her systolic number has been all over the place [facility] ED PROV NOTEon 01-25-2025 ED PROV NOTE HNO ID: [id number] Author: TRAE SOLANO DO Service: ? Author Type: Physician Type: ED Provider Notes Filed: 01/25/2025 20:56 Note Text: ED Provider Note Patient Name: Nadia Anglin : 1970 SERVICE DATE: 01/25/25 History Patient presents with: Weakness: Patient states legs and hands have been numb since yesterday. States last week she had surgery on an artery in her kidney. Patient says she is unable to walk due to numbness History provided by: Patient PAST MEDICAL HISTORY Diagnosis Date Asthma Current smoker Diabetes mellitus type 2, insulin dependent (HCC) Elevated BP Obesity Psoriasis Spinal stenosis PAST SURGICAL HISTORY Procedure Laterality Date DELIVERY ONLY 1990, 1995 , low transverse TUBAL LIGATION, FAMILY HISTORY Problem Relation Age of Onset Diabetes Mother Hypertension Mother Stroke Mother TIA's Heart Father @ 62 d/t [place] Heart Maternal Grandfather Diabetes Maternal Grandfather Diabetes Sister @ 50 years, renal failure Social History Tobacco Use Smoking status: Every Day Current packs/day: 1.00 Average packs/day: 1 pack/day for 20.0 years (20.0 ttl pk-yrs) Types: Cigarettes Smokeless tobacco: Never Tobacco comments: 1/2 PPD Substance and Sexual Activity Alcohol use: No Drug use: No Sexual activity: Yes Partners: Male control/protection: Tubal Ligation ALLERGIES Allergen Reactions Codeine Intolerance Iv Contrast [Iodine] Vomiting Primatene Mist [Epi* Vomiting Review of Systems Physical Exam Vitals [01/25/25 1132] BP Pulse Temp Temp src Resp SpO2 Weight Height (!) 215/97 82 36.4 ?C (97.5 ?F) Oral 20 96 % 115.2 kg (254 lb) 1.702 m (5' 7) Physical Exam Diagnostic Testing ED Labs Ordered and Reviewed BASIC METABOLIC PANEL - Abnormal; Notable for the following components: Result Value Ref Range Glucose 188 (*) 70 - 100 mg/dL Creatinine 1.07 (*) 0.51 - 0.95 mg/dL Sodium 135 (*) 136 - 145 mmol/L Potassium 5.2 (*) 3.5 - 5.1 mmol/L All other components within normal limits COMPLETE BLOOD COUNT AND DIFFERENTIAL - Abnormal; Notable for the following components: Platelet Count 131 (*) 150 - 400 k/uL All other components within normal limits URINALYSIS (WITH MICROSCOPIC) WITH CULTURE IF INDICATED - Abnormal; Notable for the following components: Hemoglobin/Blood,Ur 1+ (*) Negative Protein, Urine 1+ (*) Negative Nitrites Positive (*) Negative Leuk Esterase Trace (*) Negative Bacteria Moderate (*) None Seen /HPF All other components within normal limits HIGH SENSITIVITY TROPONIN I - Normal MAGNESIUM - Normal PROTHROMBIN TIME - Normal ACTIVATED PARTIAL THROMBOPLASTIN TIME - Normal Narrative: Unfractionated Heparin Therapeutic Ranges: Standard Heparin Nomogram: 53 to 78 seconds (anti-Xa level of 0.3 to 0.7 U/ml) Low Dose/ACS Nomogram: 49 to 67 seconds (anti-Xa level of 0.2 to 0.5 U/ml) Stroke Treatment Nomogram: 49 to 67 seconds (anti-Xa level of 0.2 to 0.5 U/ml) Note: The APTT therapeutic range has been determined for the current lot of laboratory APTT reagent in use throughout the [facility]. BASIC METABOLIC PANEL COMPLETE BLOOD COUNT AND DIFFERENTIAL Procedures ED Course / Clinical Impression Clinical Impressions as of 01/25/252051 Poorly-controlled hypertension Hypertensive urgency Bilateral numbness and tingling of arms and legs MDM / Disposition / Plan I personally made/approved the management plan/medical decision making, and take responsibility for the patient management. Patient is a 54-year-old female presenting to the emergency department due to ongoing uncontrolled hypertension issues as well as numbness/tingling feeling in her hands and feet. Patient has known severe hypertension issues, she has had a recent admission because of this, she had recent intervention by vascular for renal artery stenosis related issues. On exam patient does not have any focal neurologic deficits, no cranial nerve abnormalities, intact and equal pulses throughout with brisk capillary refill, no evidence of any vascular deficits. Creatinine is at her baseline, potassium mildly increased. Patient is on an BRIGHT inhibitor which may be contributing to this. Patient mildly thrombocytopenic, laboratory workup otherwise unremarkable. CT of the brain unremarkable, duplex ultrasound of the lower extremities obtained with no evidence of DVT/SVT. Patient has had severe hypertensive issues with systolic pressures in the 230s, patient was given IV hydralazine, blood pressure is improving but still quite elevated. Given the combination of patient's neuropathy symptoms and her ongoing significant uncontrolled hypertension issues despite recent medication intervention for her severe hypertension, patient will require admission at this time. Hospitalist will be admitting the patient. History (more content not included)... Normal [facility] ED PROV NOTE HNO ID: [id number] Author: TRAE SOLANO DO Service: Emergency Medicine Author Type: Physician Towel Sewer Type: ED Provider Notes Filed: 01/26/2025 21:44 Note Text: Attestation signed by Trae Solano DO at 01/26/2025 9:44 PM See my note ED Provider Note Patient Name: Nadia Anglin : 1970 SERVICE DATE: 01/25/25 History Patient presents with: Weakness: Patient states legs and hands have been numb since yesterday. States last week she had surgery on an artery in her kidney. Patient says she is unable to walk due to numbness 54-year-old female presents with chief complaint of bilateral hand and leg numbness. She had a recent admission for hypertensive urgency underwent renal angiogram with stenting angioplasty of the right renal artery. She was started on 3 new blood pressure medications including lisinopril, hydralazine, amlodipine. She noticed the symptoms in her arms and legs yesterday. Has a known history of diabetic neuropathy on gabapentin but states this feels different. She feels that her legs are heavier and trouble walking and numb. Has tingling and numbness in her hands as well. Denies any visual changes, facial weakness, confusion, trouble with speech, denies any weakness in her upper extremities. Denies abdominal pain back pain or chest pain. Denies hematuria. Has noticed some degree of increased welling in her lower extremities. PAST MEDICAL HISTORY Diagnosis Date Asthma Current smoker Diabetes mellitus type 2, insulin dependent (HCC) Elevated BP Obesity Psoriasis Spinal stenosis PAST SURGICAL HISTORY Procedure Laterality Date DELIVERY ONLY 1990, 1995 , low transverse TUBAL LIGATION, FAMILY HISTORY Problem Relation Age of Onset Diabetes Mother Hypertension Mother Stroke Mother TIA's Heart Father @ 62 d/t [place] Heart Maternal Grandfather Diabetes Maternal Grandfather Diabetes Sister @ 50 years, renal failure Social History Tobacco Use Smoking status: Every Day Current packs/day: 1.00 Average packs/day: 1 pack/day for 20.0 years (20.0 ttl pk-yrs) Types: Cigarettes Smokeless tobacco: Never Tobacco comments: 1/2 PPD Substance and Sexual Activity Alcohol use: No Drug use: No Sexual activity: Yes Partners: Male control/protection: Tubal Ligation ALLERGIES Allergen Reactions Codeine Intolerance Iv Contrast [Iodine] Vomiting Primatene Mist [Epi* Vomiting Review of Systems All other systems reviewed and are negative. Physical Exam Vitals [01/25/25 1132] BP Pulse Temp Temp src Resp SpO2 Weight Height (!) 215/97 82 36.4 ?C (97.5 ?F) Oral 20 96 % 115.2 kg (254 lb) 1.702 m (5' 7) Physical Exam Vitals and nursing note reviewed. Constitutional: General: She is not in acute distress. Appearance: Normal appearance. She is not ill-appearing. HENT: Head: Normocephalic and atraumatic. Mouth/Throat: Mouth: Mucous membranes are moist. Pharynx: Oropharynx is clear. Eyes: General: No scleral icterus. Right eye: No discharge. Left eye: No discharge. Conjunctiva/sclera: Conjunctivae normal. Cardiovascular: Rate and Rhythm: Normal rate and regular rhythm. Pulses: Normal pulses. Heart sounds: Normal heart sounds. No murmur heard. Comments: 2+ dorsalis pedis pulse bilaterally, skin is warm peripherally 2+ radial pulses bilaterally Pulmonary: Effort: Pulmonary effort is normal. No respiratory distress. Breath sounds: Normal breath sounds. No wheezing or rales. Abdominal: General: Bowel sounds are normal. There is no distension. Palpations: Abdomen is soft. Tenderness: There is no abdominal tenderness. There is no guarding. Comments: No palpable mass Musculoskeletal: General: Normal range of motion. Cervical back: Normal range of motion and neck supple. Right lower leg: Edema present. Left lower leg: Edema present. Comments: 1+ pitting edema bilateral lower extremities Skin: General: Skin is warm. Coloration: Skin is not jaundiced or pale. Neurological: General: No focal deficit present. Mental Status: She is alert and oriented to person, place, and time. Comments: NIHSS: 1(a). Mental Status - LOC 0 = Alert and Attentive 1(b). LOC Questions 0 = Correct age and month 1(c). LOC-Commands 0 = Both 2. Gaze 0 = Normal 3. Visual [place] 0 = Full 4. Facial Weakness 0 = Normal 5(a). Left Arm 0 = No drift 5(b). Right Arm 0 = No drift 6(a). Left Leg 0 = No drift 6(b). Right Leg 0 = No drift 7. Ataxia 0 = Absent 8. Sensory 0 = Normal 9. Aphasia 0 = None 10. Dysarthria 0 = Absent 11. Neglect 0 = None NIHSS Total (0-42): 0 Psychiatric: Mood and Affect: Mood normal. Behavior: Behavior norm (more content not included)... Normal [facility] ED Triage Noteon 01-25-2025 ED Triage Note HNO ID: [id number] Author: BILL HUYNH PA-C Service: ? Author Type: Physician Towel Sewer Type: ED Triage Notes Filed: 01/25/2025 11:36 Note Text: ED TRIAGE PROVIDER NOTE Patient Name: Nadia Anglin Service Date: 01/25/25 BRIEF HPI: This is a 54 year old female who presents to the ED with: Bilateral hand and feet numbness tingling. Patient recently had a stent placed in her kidneys. Unsure of the surgeon's name. It was done at [facility]. She is not on a blood thinner. She has had some weakness due to the numbness tingling in her legs. No headaches. No visual disturbances. No chest pain or abdominal pain. No other complaints BRIEF EXAM: NAD Awake and Alert Non labored breathing No focal neurological deficits Equal pulses in upper and lower extremities. Abdominal exam is benign. INITIAL WORKUP AND DECISION MAKING: Orders Placed This Encounter CT BRAIN WO IVCON BASIC METABOLIC PANEL CBC + AUTO DIFF SINGLE HIGH SENSITIVITY TROPONIN I MAGNESIUM BLOOD PT/INR Activated PTT ECG COMPLETE SIGNATURE: Bill Huynh PA-C Normal [facility] HIGH SENSITIVITY TROPONIN Io n 01-25-2025 Tropinin I.cardiac panel High sensitivity method 3.8 pg/mL Normal 0.0-34.0 [facility] Comment on above: Order Comment: Speci men Type: BLOOD SPECIMEN Ordering Facility: [facility] Address: [address] [place] [address] Performed By: #### 2 4323-8, 31058-9, [id number] #### [facility] CLIA [id number] [facility] [place] [address] [place] HISTORY PHYSICALon HISTORY PHYSICAL HNO ID: [id number] Author: KYLEIGH AGUERO MD Service: General Internal Medicine Author Type: Physician Type: H&P Filed: 01/25/2025 20:16 Note Text: DEPARTMENT OF HOSPITAL MEDICINE HISTORY AND PHYSICAL EXAM SERVICE DATE: 01/25/2025 SERVICE TIME: 7:53 PM Primary Care Physician: Clifford Sarmiento DO Subjective CHIEF COMPLAINT: UE/LE paresthesias HPI: This is a 54 year old female with past medical history of resistant hypertension, nicotine use disorder, right renal artery stenosis status post stent, obesity, hyperkalemia, obesity who presented with paresthesias of her hands and feet. Of note patient was recently hospitalized at this facility for hypertensive emergency and underwent renal stent placement on 01/18. Presented to the ER today with 1 day of paresthesias in her hands and feet. States she had been compliant with all her medications and took her last dose this morning at approximately 11 AM. Denies any fever, chills, cough, shortness of breath or chest pain. Vitals demonstrated blood pressure elevated to 230s systolic otherwise stable. Labs pertinent for potassium 5.2, glucose 188 otherwise grossly unremarkable. Urinalysis similar compared to prior admission. CT brain with no acute finding. Doppler ultrasound negative for DVT. Patient will be admitted under observation for further management of hypertensive urgency and evaluation by nephrology. PAST MEDICAL HISTORY Diagnosis Date Asthma Current smoker Diabetes mellitus type 2, insulin dependent (HCC) Elevated BP Obesity Psoriasis Spinal stenosis PAST SURGICAL HISTORY Procedure Laterality Date DELIVERY ONLY 1990, 1995 , low transverse TUBAL LIGATION, FAMILY HISTORY Problem Relation Age of Onset Diabetes Mother Hypertension Mother Stroke Mother TIA's Heart Father @ 62 d/t IA Heart Maternal Grandfather Diabetes Maternal Grandfather Diabetes Sister @ 50 years, renal failure Social History Tobacco Use Smoking status: Every Day Current packs/day: 1.00 Average packs/day: 1 pack/day for 20.0 years (20.0 ttl pk-yrs) Types: Cigarettes Smokeless tobacco: Never Tobacco comments: 1/2 PPD Substance Use Topics Alcohol use: No Drug use: No MEDICATIONS: Reviewed Prior to Admission Medications Prescriptions Last Dose Informant Patient Reported? Taking? HYDROcodone-Acetaminoph en (NORCO) 7.5-325 mg per tablet Yes No Sig: Take 1 tablet by mouth every 6 hours as needed for pain. amLODIPine (NORVASC) 10 mg tablet 01/25/2025 No Yes Sig: Take 1 tablet by mouth once daily. atorvastatin (LIPITOR) 40 mg tablet 01/24/2025 No Yes Sig: Take 1 tablet by mouth daily at bedtime. clopidogrel (PLAVIX) 75 mg tablet 01/25/2025 No Yes Sig: Take 1 tablet by mouth once daily. gabapentin (NEURONTIN) 300 mg capsule 01/25/2025 Morning Yes Yes Sig: Take 600 mg by mouth two times a day. hydrALAZINE (APRESOLINE) 50 mg tablet 01/25/2025 Morning No Yes Sig: Take 1 tablet by mouth every 8 hours. insulin glargine (LANTUS SOLOSTAR U-100 INSULIN) 100 unit/mL (3 mL) 01/24/2025 Yes Yes Sig: Inject 15 Units subcutaneously daily at bedtime. lisinopril (ZESTRIL) 40 mg tablet 01/25/2025 No Yes Sig: Take 1 tablet by mouth once daily. metoprolol tartrate, short acting, (LOPRESSOR) 50 mg tablet 01/25/2025 Yes Yes Sig: Take 50 mg by mouth two times a day. Facility-Administered Medications: None ALLERGIES Allergen Reactions Codeine Intolerance Iv Contrast [Iodine] Vomiting Primatene Mist [Epi* Vomiting REVIEW OF SYSTEM: PAIN ASSESSMENT: Negative for pain, history of chronic pain, or current treatment for a chronic pain condition. GENERAL: No weight loss, malaise or fevers HEENT: Negative for frequent or significant headaches, No changes in hearing or vision, no nose bleeds or other nasal problems RESPIRATORY: Negative for cough, hemoptysis, wheezing, COPD, dyspnea or shortness of breath CARDIOVASCULAR: Negative for chest pain, leg swelling, hypertension, CHF or palpitations GI: No nausea, vomiting, or diarrhea MUSCULOSKELETAL: Negative for joint pain or swelling, back pain or muscle pain SKIN: Negative for lesions, rash, and itching Objective PHYSICAL EXAM: BP 209/95 Pulse 75 Temp (Src) 97.5 (Oral) Resp 18 Ht 5' 7 (1.70m) Wt 254 lb (115.2kg) SpO2 97% LMP 10/21/2011 BMI 39.77 kg/(m2). O2 Therapy: Room Air Physical Exam Performed: GENERAL: Alert, no distress, cooperative, Morbidly Obese SKIN: Skin color, texture, turgor normal. No rashes or lesions. HEAD/SINUSES: No significant findings LUNGS: Lungs clear to auscultation, Good diaphragmatic excursion CARDIAC: Normal S1 and S2; no rubs, murmurs, or gallops ABDOMEN: Abdomen soft, non-tender, BS normal, No masses or organomegaly EXTREMITIES: Extremities normal, no deformities, edema, clubbing or skin discoloration. Good capillary refill., No ulcers The remainder of the physical exam is nonc (more content not included)... Normal [facility] Magnesium SerPl-mCncon 01-25 Magnesium [Mass/Vol] 1.7 mg/dL Normal 1.6-2.6 [facility] Comment on above: Order Comment: Lacey coleman Type: BLOOD SPECIMEN Ordering Facility: [facility] Address: [address] [place] [address] Performed By: #### 5 7021-8 #### [facility] CLIA [id number] [address] [place] [address] [place] PT panel Coag (PPP)on 2024 INR Coag (PPP) [Relative time] 1.1 {INR} Normal 0.9-1.3 [facility] Comment on above: Order Comment: Lacey coleman Type: BLOOD SPECIMEN Ordering Facility: [facility] Address: [address] [place] [address] Result Comment: Gloria min K Antagonist (VKA) Therapeutic Range: INR 2 to 3 (Target INR of 2.5) Note: For patients treated with VKA drugs, such as warfarin, the [employer] 2012 Guideline recommends a therapeutic INR range of 2 to 3 (target INR of 2.5). This recommendation includes high-risk patients with antiphospholipid syndrome with previous arterial or venous thromboembolism, current-generation mechanical or bioprosthetic aortic heart valve replacement. Note: Patients with mechanical aortic valve replacement and additional risk factors for thromboembolic events (atrial fibrillation, previous thromboembolism, LV dysfunction, hypercoagulable conditions) or an older generation mechanical AVR (i.e., ball in-Cage) or any mechanical MVR should have a INR therapeutic range of 2.5 to 3.5 (target INR of 3). Shahzad GH, et al. Chest 2012, 141:7S-47S Jamil RA, et al. [facility] 2017, 70: 252-289 Performed By: #### 5 7021-8 #### [facility] CLIA [id number] [address] [address] [place] PT Coag (PPP) [Time] 11.6 s Normal 9.7-13.0 [facility] Comment on above: Order Comment: Speci men Type: BLOOD SPECIMEN Ordering Facility: [facility] Address: [address] [place] [address] Performed By: #### 5 7021-8 #### [facility] CLIA [id number] [address] [place] [address] US LEG VEIN DVT [facility] 01-25-2025 LEG VEIN DVT [facility] Non-Invasive Vascular Laboratory [facility] Lower Extremity Venous Duplex Bilateral/Complete Date of service/time: 01/25/2025 2:12:37 PM Name: NADIA ANGLIN Date of : 1970 Age: 54 years Gender: F Clinical Indication Lower extremity swelling and lower extremity pain. TECHNIQUE -------- A venous duplex ultrasound examination was performed, including grayscale imaging with compression maneuvers and color Doppler and spectral Doppler examination with augmentation maneuvers and response to respiration of the below mentioned veins. FINDINGS -------- RIGHT SIDE Distal external iliac vein Doppler: normal flow. Compression: normal. Common femoral vein Doppler: normal flow. Compression: normal. Femoral vein Doppler: normal flow. Compression: normal. Popliteal vein Doppler: normal flow. Compression: normal. Posterior tibial veins Compression: normal. Peroneal veins Compression: normal. Great saphenous vein Compression: normal. Small saphenous vein Compression: normal. Soleal vein Compression: normal. Gastrocnemius vein Compression: normal. Profunda vein Doppler: normal flow. Compression: normal. LEFT SIDE Distal external iliac vein Doppler: normal flow. Compression: normal. Common femoral vein Doppler: normal flow. Compression: normal. Femoral vein Doppler: normal flow. Compression: normal. Popliteal vein Doppler: normal flow. Compression: normal. Posterior tibial veins Compression: normal. Peroneal veins Compression: normal. Great saphenous vein Compression: normal. Small saphenous vein Compression: normal. Soleal vein Compression: normal. Gastrocnemius vein Compression: normal. Profunda vein Doppler: normal flow. Compression: normal. IMPRESSION RIGHT SIDE - DEEP VEINS Negative for acute deep vein thrombosis. RIGHT SIDE - SUPERFICIAL VEINS Negative for superficial thrombophlebitis in the great saphenous vein and small saphenous vein. LEFT SIDE - DEEP VEINS Negative for acute deep vein thrombosis. LEFT SIDE - SUPERFICIAL VEINS Negative for superficial thrombophlebitis in the great saphenous vein and small saphenous vein. Technologist: Marisela Wiley RVT Ordering physician: BILL HUYNH Interpreting physician: Ludwig Austin MD Final CC [employer] [facility] Image : [id number] ISUID See Link below for Image Normal [facility] Urinalysis complete panel (U )on 01-25-2025 Bacteria LM.HPF (Urine sed) [#/Area] Moderate Abnormal None Seen [facility] Comment on above: Order Comment: Speci men Type: BLOOD SPECIMEN Ordering Facility: [facility] Address: [address] [place] [address] Performed By: #### 2 4323-8, 86948-7, [id number] #### [facility] CLIA [id number] [address] [place] [address] [place] Bilirubin Ql (U) Negative Normal Negative [facility] Comment on above: Order Comment: Speci men Type: BLOOD SPECIMEN Ordering Facility: [facility] Address: [address] [place] [address] Performed By: #### 2 4323-8, , [id number] #### [facility] CLIA [id number] [address] [place] [address] [place] Clarity (Unsp spec) Clear Normal Clear [facility] Comment on above: Order Comment: Speci men Type: BLOOD SPECIMEN Ordering Facility: [facility] Address: [address] [place] [address] Performed By: #### 2 4323-8, , [id number] #### [facility] CLIA [id number] [address] [place] [address] [place] Color (U) Yellow Normal Yellow [facility] Comment on above: Order Comment: Speci men Type: BLOOD SPECIMEN Ordering Facility: [facility] Address: [address] [place] [address] Performed By: #### 2 432-8, , [id number] #### [facility] CLIA [id number] [address] [place], [place] [id number] [place] Epithelial cells LM.HPF (Urine sed) [#/Area] Few Normal [facility] Comment on above: Order Comment: Speci men Type: BLOOD SPECIMEN Ordering Facility: [facility] Address: [address] [place] [address] Performed By: #### 2 4328, , [id number] #### [facility] CLIA [id number] [address] [place], [place] [id number] [place] Glucose Test strip (U) [Mass/Vol] Negative Normal Negative [facility] Comment on above: Order Comment: Speci men Type: BLOOD SPECIMEN Ordering Facility: [facility] Address: [address] [place] [address] Performed By: #### 2 4323-8, , [id number] #### [facility] CLIA [id number] [address] [place] [address] [place] Hemoglobin Ql (U) 1+ Abnormal Negative [facility] Comment on above: Order Comment: Speci men Type: BLOOD SPECIMEN Ordering Facility: [facility] Address: [address] [place], [place] [id number] Performed By: #### 2 4323-8, , [id number] #### [facility] CLIA [id number] [address] [place] [address] [place] Ketones Ql (U) Negative Normal Negative [facility] Comment on above: Order Comment: Speci men Type: BLOOD SPECIMEN Ordering Facility: [facility] Address: [address] [place] [address] Performed By: #### 2 4323-8, , [id number] #### [facility] CLIA [id number] [address] [place], [place] [address] [place] Leukocyte esterase Test strip Ql (U) Trace Abnormal Negative [facility] Comment on above: Order Comment: Speci men Type: BLOOD SPECIMEN Ordering Facility: [facility] Address: [address] [place] [address] Performed By: #### 2 432-8, , [id number] #### [facility] CLIA [id number] [address] [place], [place] [address] [place] Nitrite Ql (U) Positive Abnormal Negative [facility] Comment on above: Order Comment: Speci men Type: BLOOD SPECIMEN Ordering Facility: [facility] Address: [address] [place] [address] Performed By: #### 2 4323-8, , [id number] #### [facility] CLIA [id number] [address] [place] [address] [place] pH (U) 7.0 [pH] Normal 5.0-8.0 [facility] Comment on above: Order Comment: Speci men Type: BLOOD SPECIMEN Ordering Facility: [facility] Address: [address] [place] [address] Performed By: #### 2 4323-8, , [id number] #### [facility] CLIA [id number] [address] [place] [address] [place] Protein (U) [Mass/Vol] 1+ Abnormal Negative [facility] Comment on above: Order Comment: Speci men Type: BLOOD SPECIMEN Ordering Facility: [facility] Address: [address] [place] [address] Performed By: #### 2 4323-8, , [id number] #### [facility] CLIA [id number] [address] [place] [address] [place] RBC LM.HPF (Urine sed) [#/Area] 0-3 /HPF Normal 0-3 /HPF [facility] Comment on above: Order Comment: Speci men Type: BLOOD SPECIMEN Ordering Facility: [facility] Address: [address] [place] [address] Performed By: #### 2 4323-8, , [id number] #### [facility] CLIA [id number] [address] [place] [address] [place] Specific gravity (U) [Rel density] 1.009 Normal 1.005-1.030 [facility] Comment on above: Order Comment: Speci men Type: BLOOD SPECIMEN Ordering Facility: [facility] Address: [address] [place] [address] Performed By: #### 2 4323-8, , [id number] #### [facility] CLIA [id number] [address] [place] [address] [place] Urobilinogen Ql (U) Negative Normal Negative [facility] Comment on above: Order Comment: Speci men Type: BLOOD SPECIMEN Ordering Facility: [facility] Address: [address] [place] [address] Performed By: #### 2 4323-8, , [id number] #### [facility] CLIA [id number] [address] [place] [address] [place] WBC LM.HPF (Urine sed) [#/Area] 0-5 /HPF Normal 0-5 /HPF [facility] Comment on above: Order Comment: Speci men Type: BLOOD SPECIMEN Ordering Facility: [facility] Address: [address] [place], [place] [address] [id number] Performed By: #### 2 4323-8, 15452-3, [id number] #### [facility] CLIA [id number] [address] [place], [place] [address] [place] aPTT PPPon 01-25-2025 aPTT Coag (PPP) [Time] 29.3 s Normal 23.0-32.4 [facility] Comment on above: Order Comment: Speci men Type: BLOOD SPECIMEN Ordering Facility: [facility] Address: [address] [place] [address] Performed By: #### 5 7021-8 #### [facility] CLIA [id number] [address] [place], [place] [address] [place] Basic metabolic 2000 panelon 01-19-2025 Anion gap [Moles/Vol] 8 mmol/L Normal 5-16 [facility] Comment on above: Order Comment: Speci men Type: BLOOD SPECIMENOrdering Facility: [facility] Address: [address] [place], [place] [address] Performed By: #### 2 4321-2 ####[facility]ORYCLIA [id number] [place] [address] [place] Calcium [Mass/Vol] 8.8 mg/dL Normal 8.5-10.5 [facility] Comment on above: Order Comment: Speci men Type: BLOOD SPECIMENOrdering Facility: [facility] Address: [address] [place] [address] Performed By: #### 2 4321-2 ####[facility]ORYCLIA [id number] [place] [address] [place] Chloride [Moles/Vol] 102 mmol/L Normal 98-107 [facility] Comment on above: Order Comment: Speci men Type: BLOOD SPECIMENOrdering Facility: [facility] Address: [address] [place] [address] [place] [address] Performed By: #### 2 4321-2 ####[facility]ORYCLIA [id number] [place] [address] [place] CO2 [Moles/Vol] 26 mmol/L Normal 21-32 [facility] Comment on above: Order Comment: Lacey coleman Type: BLOOD SPECIMENOrdering Facility: [facility] Address: [address] [place] [address] Performed By: #### 2 4321-2 ####[facility]ORYCLIA [id number] [address] [place] Creatinine [Mass/Vol] 1.12 mg/dL High 0.51-0.95 [facility] Comment on above: Order Comment: Speci men Type: BLOOD SPECIMENOrdering Facility: [facility] Address: [address] [place] [address] Result Comment: Livia ents receiving either N-Acetylcysteine (NAC) or Metamizole prior to venipuncture, may have falsely depressed results. Performed By: #### 2 4321-2 ####[facility]ORYCLIA [id number] [address] Creatinine and Glomerular filtration rate.predicted panel (S/P/Bld) 58 mL/min/1.73m??? Low >=60 [facility] Comment on above: Order Comment: Lacey coleman Type: BLOOD SPECIMENOrdering Facility: [facility] Address: [address] [place] [address] Result Comment: Jazmin mated Glomerular Filtration Rate (eGFR) is calculated using the 2020 CKD-EPI creatinine equation. This equation utilizes serum creatinine, sex, and age as parameters. The creatinine assay has traceable calibration to isotope dilution-mass spectrometry. Refer to KDIGO guidelines for clinical interpretation. In patients with unstable renal function, e.g. those with acute kidney injury, the eGFR may not accurately reflect actual GFR. Performed By: #### 2 4321-2 ####[facility]ORYCLIA [id number] [address] [place] Glucose [Mass/Vol] 171 mg/dL High 70-100 [facility] Comment on above: Order Comment: Lacey coleman Type: BLOOD SPECIMENOrdering Facility: [facility] Address: [address] [place], [place] [address] Result Comment: The [place] Diabetes Association (ADA) provides guidance for cutoff values for fasting glucose and random glucose. The ADA defines fasting as no caloric intake for at least 8 hours. Fasting plasma glucose results between 100 to 125 mg/dL indicate increased risk for diabetes (prediabetes). Fasting plasma glucose results greater than or equal to 126 mg/dL meet the criteria for diagnosis of diabetes. In the absence of unequivocal hyperglycemia, results should be confirmed by repeat testing. In a patient with classic symptoms of hyperglycemia or hyperglycemic crisis, random plasma glucose results greater than or equal to 200 mg/dL meet the criteria for diagnosis of diabetes. Reference: Standards of Medical Care in Diabetes 2016, [place] Diabetes Association. Diabetes Care. 2016.39(Suppl 1). Results may be falsely elevated after the administration of Sulfapyridine. Results may be falsely depressed after the administration of Sulfasalazine. Performed By: #### 2 4321-2 ####[facility]ORYCLIA [id number] [place] [address] [place] Potassium [Moles/Vol] 4.9 mmol/L Normal 3.5-5.1 [facility] Comment on above: Order Comment: Speci men Type: BLOOD SPECIMENOrdering Facility: [facility] Address: [address] [id number] Performed By: #### 2 4321-2 ####[facility]ORYCLIA [id number] [place] [address] [place] Sodium [Moles/Vol] 136 mmol/L Normal 136-145 [facility] Comment on above: Order Comment: Speci men Type: BLOOD SPECIMENOrdering Facility: [facility] Address: [address] [place] [id number] Performed By: #### 2 4321-2 ####[facility]ORYCLIA [id number] [place] [address] [place] Urea nitrogen [Mass/Vol] 30 mg/dL High 7-26 [facility] Comment on above: Order Comment: Speci men Type: BLOOD SPECIMENOrdering Facility: [facility] Address: [address] [id number] Performed By: #### 2 4321-2 ####[facility]ORYCLIA [id number] [place] [address] [place] CBC W Auto Differential pane l (Bld)on 01-19-2025 Basophils (Bld) [#/Vol] 0.06 10*3/uL Normal <0.11 [facility] Comment on above: Order Comment: Speci men Type: BLOOD SPECIMENOrdering Facility: [facility] Address: [address] [place] [address] Performed By: #### 5 7021-8 ####[facility]ORYCLIA [id number] [address] [place] Basophils/100 WBC (Bld) 0.7 % Normal [facility] Comment on above: Order Comment: Speci men Type: BLOOD SPECIMENOrdering Facility: [facility] Address: [address] [place] [address] Performed By: #### 5 7021-8 ####[facility]ORYCLIA [id number] [address] Differential cell count method Nom (Bld) Auto Normal [facility] Comment on above: Order Comment: Speci men Type: BLOOD SPECIMENOrdering Facility: [facility] Address: [address] [place] [address] Performed By: #### 5 7021-8 ####[facility]ORYCLIA [id number] [place] [address] [place] Eosinophils (Bld) [#/Vol] 0.23 10*3/uL Normal <0.46 [facility] Comment on above: Order Comment: Speci men Type: BLOOD SPECIMENOrdering Facility: [facility] Address: [address] [place] [address] Performed By: #### 5 7021-8 ####[facility]ORYCLIA [id number] [address] [place] Eosinophils/100 WBC (Bld) 2.5 % Normal [facility] Comment on above: Order Comment: Speci men Type: BLOOD SPECIMENOrdering Facility: [facility] Address: [address] [place] [address] Performed By: #### 5 7021-8 ####[facility]ORYCLIA [id number] [address] [place] Erythrocyte distribution width (RBC) [Ratio] 13.5 % Normal 11.5-15.0 [facility] Comment on above: Order Comment: Speci men Type: BLOOD SPECIMENOrdering Facility: [facility] Address: [address] [place] [address] Performed By: #### 5 7021-8 ####[facility]ORYCLIA [id number] [place] [address] [place] Hematocrit (Bld) [Volume fraction] 34.1 % Low 36.0-46.0 [facility] Comment on above: Order Comment: Speci men Type: BLOOD SPECIMENOrdering Facility: [facility] Address: [address] [place] [address] Performed By: #### 5 7021-8 ####[facility]ORYCLIA [id number] [place] [address] [place] Hemoglobin (Bld) [Mass/Vol] 11.2 g/dL Low 11.5-15.5 [facility] Comment on above: Order Comment: Speci men Type: BLOOD SPECIMENOrdering Facility: [facility] Address: [address] [place] [address] Performed By: #### 5 7021-8 ####[facility]ORYCLIA [id number] [place] [address] [place] Immature granulocytes (Bld) [#/Vol] 0.03 10*3/uL Normal <0.10 [facility] Comment on above: Order Comment: Speci men Type: BLOOD SPECIMENOrdering Facility: [facility] Address: [address] [place] [address] Performed By: #### 5 7021-8 ####[facility]ORYCLIA [id number] [address] [place] Immature granulocytes/100 WBC (Bld) 0.3 % Normal [facility] Comment on above: Order Comment: Speci men Type: BLOOD SPECIMENOrdering Facility: [facility] Address: [address] [place] [address] Performed By: #### 5 7021-8 ####[facility]ORYCLIA [id number] [place] [address] [place] Lymphocytes (Bld) [#/Vol] 2.96 10*3/uL Normal 1.00-4.00 [facility] Comment on above: Order Comment: Speci men Type: BLOOD SPECIMENOrdering Facility: [facility] Address: [address] [place] [address] Performed By: #### 5 7021-8 ####[facility]ORYCLIA [id number] [address] Lymphocytes/100 WBC (Bld) 32.5 % Normal [facility] Comment on above: Order Comment: Speci men Type: BLOOD SPECIMENOrdering Facility: [facility] Address: [address] [place] [address] Performed By: #### 5 7021-8 ####[facility]ORYCLIA [id number] [place] [address] [place] MCH (RBC) [Entitic mass] 30.6 pg Normal 26.0-34.0 [facility] Comment on above: Order Comment: Speci men Type: BLOOD SPECIMENOrdering Facility: [facility] Address: [address] [place] [address] Performed By: #### 5 7021-8 ####[facility]ORYCLIA [id number] [address] [place] MCHC (RBC) [Mass/Vol] 32.8 g/dL Normal 30.5-36.0 [facility] Comment on above: Order Comment: Speci men Type: BLOOD SPECIMENOrdering Facility: [facility] Address: [address] [place] [address] Performed By: #### 5 7021-8 ####[facility]ORYCLIA [id number] [place] [id number] [place] MCV (RBC) [Entitic vol] 93.2 fL Normal 80.0-100.0 [facility] Comment on above: Order Comment: Speci men Type: BLOOD SPECIMENOrdering Facility: [facility] Address: [address] [place] [address] Performed By: #### 5 7021-8 ####[facility]ORYCLIA [id number] [place] [address] [place] Monocytes (Bld) [#/Vol] 0.85 10*3/uL Normal <0.87 [facility] Comment on above: Order Comment: Speci men Type: BLOOD SPECIMENOrdering Facility: [facility] Address: [address] [place] [address] Performed By: #### 5 7021-8 ####[facility]ORYCLIA [id number] [address] [place] Monocytes/100 WBC (Bld) 9.3 % Normal [facility] Comment on above: Order Comment: Speci men Type: BLOOD SPECIMENOrdering Facility: [facility] Address: [address] [place] [address] Performed By: #### 5 7021-8 ####[facility]ORYCLIA [id number] [place] [address] [place] Neutrophils (Bld) [#/Vol] 4.97 10*3/uL Normal 1.45-7.50 [facility] Comment on above: Order Comment: Speci men Type: BLOOD SPECIMENOrdering Facility: [facility] Address: [address] [place] [address] Performed By: #### 5 7021-8 ####[facility]ATORYCLIA [id number] [place] [id number] [place] Neutrophils/100 WBC (Bld) 54.7 % Normal [facility] Comment on above: Order Comment: Speci men Type: BLOOD SPECIMENOrdering Facility: [facility] Address: [address] [place] [address] Performed By: #### 5 7021-8 ####[facility]ORYCLIA [id number] [place] [address] [place] Nucleated RBC (Bld) [#/Vol] 10*3/uL Normal <0.01 [facility] Comment on above: Order Comment: Speci men Type: BLOOD SPECIMENOrdering Facility: [facility] Address: [address] [place] [address] Performed By: #### 5 7021-8 ####[facility]ATORYCLIA [id number] [place] [address] [place] Nucleated RBC/100 WBC (Bld) [Ratio] 0.0 /[address] [facility] Comment on above: Order Comment: Speci men Type: BLOOD SPECIMENOrdering Facility: [facility] Address: [address] [place] [address] Performed By: #### 5 7021-8 ####[facility]ATORYCLIA [id number] [place] [address] [place] Platelet mean volume (Bld) [Entitic vol] 10.9 fL Normal 9.0-12.7 [facility] Comment on above: Order Comment: Speci men Type: BLOOD SPECIMENOrdering Facility: [facility] Address: [address] [place] [address] Performed By: #### 5 7021-8 ####[facility]ATORYCLIA [id number] [place] [address] [place] Platelets (Bld) [#/Vol] 130 10*3/uL Low 150-400 [facility] Comment on above: Order Comment: Speci men Type: BLOOD SPECIMENOrdering Facility: [facility] Address: [address] [place] [address] Performed By: #### 5 7021-8 ####[facility]ORYCLIA [id number] [place] [address] [place] RBC (Bld) [#/Vol] 3.66 10*6/uL Low 3.90-5.20 [facility] Comment on above: Order Comment: Specevaristo coleman Type: BLOOD SPECIMENOrdering Facility: [facility] Address: [address] [place] [address] Performed By: #### 5 7021-8 ####[facility]ATORYCLIA [id number] [place] [id number] [facility] WBC (Bld) [#/Vol] 9.10 10*3/uL Normal 3.70-11.00 [facility] Comment on above: Order Comment: Maicoevaristo coleman Type: BLOOD SPECIMENOrdering Facility: [facility] Address: [address] [place] [address] Performed By: #### 5 7021-8 ####[facility]ATORYCLIA [id number] [place] [id number] [facility] CNDSon 01-19-2025 CNDS HNO ID: [id number] Author: SHON CARSON DO Service: General Internal Medicine Author Type: Physician Type: Discharge Summary Filed: 01/19/2025 13:26 Note Text: DISCHARGE SUMMARY PATIENT NAME: Nadia Anglin ADMISSION DATE: 01/11/2025 DISCHARGE DATE: 01/19/2025 Attending Physician: Shon Carson DO Code Status: Full Code Highest Readmission Risk Score: 17 The 30 day readmissions risk score is derived from an internally validated risk model which evaluates patient level characteristics, utilization history, medication orders and lab results up until the day of discharge. Patients with a score of 39 or above are considered highest risk for readmission. Specific patient level drivers will be listed at the bottom of the summary. Reason for Hospitalization: HTN urgency, renal artery stenosis s/p stent Principal Problem: Headache (POA: Yes) Active Problems: Nicotine use disorder, F17.2 (POA: Yes) Right renal artery stenosis (POA: Yes) Obesity (BMI 30-39.9) (POA: Yes) Hyperkalemia (POA: No) BREONNA (acute kidney injury) (POA: Yes) Hyponatremia (POA: No) Obesity, Class II, BMI 35-39.9 (POA: Unknown) Resolved Problems: * No resolved hospital problems. * Operations During Hospitalization: None Procedures During Hospitalization: renal artery stenosis stent Hospital Course: 54 year old female with past medical history of DM2, obesity, asthma and tobacco abuse who presented to the ED with elevated blood pressure as an outpatient. In ER, initial vitals were significant for BP 248/140. Lab work showed plts 134, but otherwise unremarkable. CT head was unrevealing. Patient was treated with anti-hypertensives and admitted to the hospital for further work up and evaluation. Nephrology was consulted. A BP regimen was started. Renal artery US on 01/13, revealed R renal artery stenosis. Vascular surgery was consulted and she underwent stent placement on 01/18. Required mitchell placement for urinary retention. She passed her voiding trial and was discharged home in stable condition. She will need to follow up with Dr Suárez from vascular surgery in about 2 weeks. Principal Problem: HTN urgency Appreciate nephrology Continue amlodipine 10 mg daily, lisinopril 40 mg daily, hydralazine 50 mg TID Headache 2/2 fluctuation in BP Thrombocytopenia Mild on admit -> now high Renal artery stenosis Appreciate vascular S/p stent to R renal artery 01/18 Acute urinary retention Remove mitchell and do voiding trial Thrombocytosis Leukocytosis Suspect stress induced Normocytic anemia Nicotine use disorder, F17.2 BMI > 30 Consulting Teams During Hospitalization: Nephrology: Dr Harrell Surgery : Vascular Treatment Team: Attending Provider: Shon Carson DO Consulting: Claudio Soler MD Consulting: Kimi Suárez MD Attending: MR BEATA MORRIS Patient Condition @ Discharge: Improved Discharge Disposition: Home with Self Care BP: 121/56 Temp: 36.4 ?C (97.6 ?F) Temp src: Oral Pulse: 72 Resp: 18 O2 Therapy: Room Air SpO2: 100 % DIET: Resume pre-hospital diet ACTIVITY: Resume pre-hospital activity WOUND/SURGICAL SITE CARE: None ALLERGIES Allergen Reactions Codeine Intolerance Iv Contrast [Iodine] Vomiting Primatene Mist [Epi* Vomiting Discharge Medications: Medication List START taking these medications amLODIPine 10 mg tablet Commonly known as: NORVASC Take 1 tablet by mouth once daily. atorvastatin 40 mg tablet Commonly known as: LIPITOR Take 1 tablet by mouth daily at bedtime. clopidogrel 75 mg tablet Commonly known as: PLAVIX Take 1 tablet by mouth once daily. hydrALAZINE 50 mg tablet Commonly known as: APRESOLINE Take 1 tablet by mouth every 8 hours. CHANGE how you take these medications lisinopril 40 mg tablet Commonly known as: ZESTRIL Take 1 tablet by mouth once daily. What changed: medication strength how much to take CONTINUE taking these medications gabapentin 300 mg capsule Commonly known as: NEURONTIN HYDROcodone-Acetaminoph en 7.5-325 mg per tablet Commonly known as: NORCO LANTUS SOLOSTAR U-100 INSULIN 100 unit/mL (3 mL) Generic drug: insulin glargine metoprolol tartrate (short acting) 50 mg tablet Commonly known as: LOPRESSOR STOP taking these medications albuterol HFA 90 mcg/actuation inhaler Commonly known as: PROAIR HFA Where to Get Your Medications These medications were sent to [id number] [place] [address] - [address] [facility] - [id number] [place] [id number] amLODIPine 10 mg tablet atorvastatin 40 mg tablet clopidogrel 75 mg tablet hydrALAZINE 50 mg tablet lisinopril 40 mg tablet Plan of Care: Plan of care discussed with Provider, RN, Patient Future Appointments: Follow Up with PCP: Clifford Sarmiento, DO Follow Up with Dr Suárez (vascular surgery) The patient's risk for 30-da (more content not included)... [facility] NUTRITIONon 01-19-2025 NUTRITION HNO ID: [id number] Author: MEREDITH YOUSSEF RD Service: ? Author Type: Registered Dietitian Type: Nutrition Filed: 01/19/2025 11:56 Note Text: NUTRITION THERAPY SCREEN NOTE SERVICE DATE: 01/19/2025 SERVICE TIME: 1100 Care Plan: Change diet to carb controlled Orders written and provider collaborated with: Dr Carson Discharge Recommendations: Diet Diet: carb controlled Monitor and Evaluation: Meet greater than 75% of estimated needs, Monitor fluid/electrolyte balance, Monitor labs, I/Os, vital signs, weight Intake History: Nutrition Intake Prior to Admission: Greater than 75% estimated energy needs greater than or equal to 1 month Current Nutrition Intake: Greater than 75% estimated energy needs Current Intake Over time: Greater than or equal to 7 days (Consistently consuming 75-100% of meals provided, Poor oral karena noted, denies chewing/ swallowing problems.) Diet Orders (From admission, onward) Start Ordered 01/18/25 1015 DIET REGULAR START NOW 01/18/25 1010 Anthropometrics: Height: 172.7 cm (5' 8) Weight: 115.3 kg (254 lb 3.1 oz) Usual Weight: 114.3 kg (252 lb) 12/2024 Usual Weight Obtained From: Patient (no recent wt hx in EMR) Weight Change: Stable weight(s) Lines, Drains, and Airways Drain Duration Indwelling Urinary Catheter 01/18/25 1629 [facility] [place] 16 Fr <1 day MNT Billing: $ Initial Assessment: 1-15 minutes SIGNATURE: Meredith Youssef RD PATIENT NAME: Nadia Anglin DATE: January 19, 2025 TIME: 11:[address] [facility] URINALYSIS, REFLEX MICROSCOP ICon 01-19-2025 Bacteria LM.HPF (Urine sed) [#/Area] Few Abnormal None Seen [facility] Comment on above: Order Comment: Speci men Type: BLOOD SPECIMEN Ordering Facility: [facility] Address: [address] [place] [address] Performed By: #### 5 7021-8 #### [facility] CLIA [id number] [address] [place] [address] [place] Bilirubin Ql (U) Negative Normal Negative [facility] Comment on above: Order Comment: Speci men Type: BLOOD SPECIMEN Ordering Facility: [facility] Address: [address] [place] [address] Performed By: #### 5 7021-8 #### [facility] CLIA [id number] [address] [place] [address] [place] Clarity (Unsp spec) Clear Normal Clear [facility] Comment on above: Order Comment: Speci men Type: BLOOD SPECIMEN Ordering Facility: [facility] Address: [address] [place] [address] Performed By: #### 5 7021-8 #### [facility] CLIA [id number] [address] [place] [address] [place] Color (U) Yellow Normal Yellow [facility] Comment on above: Order Comment: Speci men Type: BLOOD SPECIMEN Ordering Facility: [facility] Address: [address] [place] [address] Performed By: #### 5 7021-8 #### [facility] CLIA [id number] [address] [place] [address] [place] Epithelial cells LM.HPF (Urine sed) [#/Area] Few Normal [facility] Comment on above: Order Comment: Speci men Type: BLOOD SPECIMEN Ordering Facility: [facility] Address: [address] [place] [address] Performed By: #### 5 7021-8 #### [facility] CLIA [id number] [address] [place] [address] Glucose Test strip (U) [Mass/Vol] Negative Normal Negative [facility] Comment on above: Order Comment: Speci men Type: BLOOD SPECIMEN Ordering Facility: [facility] Address: [address] [place] [address] Performed By: #### 5 7021-8 #### [facility] CLIA [id number] [address] [place] [place] [address] [place] Hemoglobin Ql (U) Trace Abnormal Negative [facility] Comment on above: Order Comment: Speci men Type: BLOOD SPECIMEN Ordering Facility: [facility] Address: [address] [place] [address] Performed By: #### 5 7021-8 #### [facility] CLIA [id number] [address] [place] [address] [place] Ketones Ql (U) Negative Normal Negative [facility] Comment on above: Order Comment: Speci men Type: BLOOD SPECIMEN Ordering Facility: [facility] Address: [address] [place] [address] Performed By: #### 5 7021-8 #### [facility] CLIA [id number] [address] Leukocyte esterase Test strip Ql (U) 3+ Abnormal Negative [facility] Comment on above: Order Comment: Speci men Type: BLOOD SPECIMEN Ordering Facility: [facility] Address: [address] [place] [address] Performed By: #### 5 7021-8 #### [facility] CLIA [id number] [address] [place] [address] [place] Nitrite Ql (U) Negative Normal Negative [facility] Comment on above: Order Comment: Speci men Type: BLOOD SPECIMEN Ordering Facility: [facility] Address: [address] [place] [address] Performed By: #### 5 7021-8 #### [facility] CLIA [id number] [address] [place] [place] [address] [place] pH (U) 6.5 [pH] Normal 5.0-8.0 [facility] Comment on above: Order Comment: Speci men Type: BLOOD SPECIMEN Ordering Facility: [facility] Address: [address] [place] [address] Performed By: #### 5 7021-8 #### [facility] CLIA [id number] [address] [place] [place] [address] [place] Protein (U) [Mass/Vol] Negative Normal Negative [facility] Comment on above: Order Comment: Speci men Type: BLOOD SPECIMEN Ordering Facility: [facility] Address: [address] [place] [address] Performed By: #### 5 7021-8 #### [facility] CLIA [id number] [address] [place] [place] [address] [place] RBC LM.HPF (Urine sed) [#/Area] 3-5 /HPF Abnormal 0-3 /HPF [facility] Comment on above: Order Comment: Speci men Type: BLOOD SPECIMEN Ordering Facility: [facility] Address: [address] [place] [address] Performed By: #### 5 7021-8 #### [facility] CLIA [id number] [address] Specific gravity (U) [Rel density] 1.010 Normal 1.005-1.030 [facility] Comment on above: Order Comment: Speci men Type: BLOOD SPECIMEN Ordering Facility: [facility] Address: [address] [place] [address] Performed By: #### 5 7021-8 #### [facility] CLIA [id number] [address] [place] [address] [place] Urobilinogen Ql (U) Negative Normal Negative [facility] Comment on above: Order Comment: Speci men Type: BLOOD SPECIMEN Ordering Facility: [facility] Address: [address] [place] [address] Performed By: #### 5 7021-8 #### [facility] CLIA [id number] [address] [place] [place] [address] [place] WBC LM.HPF (Urine sed) [#/Area] /[HPF] Abnormal 0-5 /HPF [facility] Comment on above: Order Comment: Speci men Type: BLOOD SPECIMEN Ordering Facility: [facility] Address: [address] [place] [address] Performed By: #### 5 7021-8 #### [facility] CLIA [id number] [address] [place] [address] [place] ANES POSTPROC EVALon 025 ANES POSTPROC EVAL HNO ID: [id number] Author: ASHOK MCMILLAN DO Service: Anesthesiology Author Type: Anesthesiologist Type: Anesthesia Postprocedure Evaluation Filed: 01/18/2025 12:47 Note Text: POST ANESTHESIA EVALUATION NOTE : 1970 Procedure Summary Date: 01/18/25 Room / Location: OR 16 / OR Anesthesia Start: 1011 Anesthesia Stop: 1142 Procedures: ANGIOGRAM RENAL (Bilateral: Abdomen) AORTOGRAM ABDOMINAL (Abdomen) PERCUTANEOUS TRANSLUNIMAL BALLOON ANGIOPLASTY RENAL,INITIAL ARTERY INCLUSIVE OF RAD ABDI (Right: Abdomen) PERCUTANEOUS PLACEMENT STENT RENAL ARTERY (Right: Abdomen) Diagnosis: Hypertensive urgency (Hypertensive urgency [I16.0]) Surgeons: Kimi Suárez MD Responsible Provider: Ashok Mcmillan DO Anesthesia Type: MAC ASA Status: 3 Anesthesia Type: MAC Last Vitals Vitals Value Taken Time BP 139/61 01/18/25 1245 Temp 36.9 ?C (98.5 ?F) 01/18/25 1141 Pulse 69 01/18/25 1245 Resp 16 01/18/25 1230 SpO2 98 % 01/18/25 1245 Vitals shown include unfiled device data. Post Anesthesia Patient Status Patient Evaluation: PACU. PACU/ICU Patient Condition: stable. Anticipated Disposition: inpatient floor planned admission. Neurological Status: aware and responsive. Pulmonary Status: breathing comfortably on supplemental oxygen Airway Control: returned to baseline unsupported. Cardiovascular Status: stable. Pain Management: clinically adequate - multimodal analgesia pain management approach Postoperative Hydration: acceptable. Intraoperative Events: no significant anesthesia events Post Operative Nausea/Vomiting Status: no significant post operative nausea or vomiting Recommendation: continue current plan of care, further care per PACU/ICU/floor team, pain control and n/v treatment. Anesthesia Observations No Documentation SIGNATURE: Ashok Mcmillan DO PATIENT NAME: Nadia Anglin DATE: January 18, 2025 TIME: 12:46 PM CSN: [id number] [facility] ANES PRE-OPon 01-18-2025 ANES PRE-OP HNO ID: [id number] Author: ASHOK MCMILLAN DO Service: Anesthesiology Author Type: Anesthesiologist Type: Anesthesia Preprocedure Evaluation Filed: 01/18/2025 09:05 Note Text: ANESTHESIOLOGY DAY OF SURGERY NOTE : 1970 Procedure Information Date/Time: 01/18/25 0910 Procedure: ANGIOGRAM RENAL (Bilateral: Abdomen) Location: MR OR 16 / MR OR Surgeons: Kimi Suárez MD Estimated body mass index is 38.28 kg/m? as calculated from the following: Height as of this encounter: 172.7 cm (5' 8). Weight as of this encounter: 114.2 kg (251 lb 12.4 oz). Most recent hematocrit and potassium results: Hematocrit 29.3 01/18/2025 Potassium 4.8 01/18/2025 Hemoglobin (g/dL) Date Value 01/18/2025 8.7 Hematocrit (%) Date Value 01/18/2025 29.3 WBC (k/uL) Date Value 01/18/2025 12.46 Platelet Count (k/uL) Date Value 01/18/2025 692 CMP: Glucose 68 01/18/2025 BUN 54 01/18/2025 Creatinine 3.76 01/18/2025 Sodium 139 01/18/2025 Potassium 4.8 01/18/2025 Chloride 103 01/18/2025 CO2 26 01/18/2025 Protein, Total 6.8 01/16/2025 Albumin 2.8 01/16/2025 Calcium, Total 9.6 01/18/2025 Alkaline Phosphatase 77 01/16/2025 Bilirubin, Total 0.4 01/16/2025 AST 19 01/16/2025 ALT 12 01/16/2025 Sinus bradycardia Abnormal QRS-T angle, consider primary T wave abnormality Abnormal ECG When compared with ECG of 11-Jan-2025 11:01, No significant change was found Confirmed by PEREZ VALENCIA MD ([id number]) on 01/14/2025 8:16:44 AM 54 years old with past medical history of morbid obesity, diabetes mellitus type 2, current smoker, history of neuropathy, uncontrolled hypertension presented due to elevated blood pressure. In the ED, blood pressure 248/140 improved to 180/72 doses of hydralazine, heart rate 66. EKG and troponin are unremarkable. CT of the brain is unremarkable, chest x-ray unremarkable. Blood workup is negative. Patient admitted for hypertensive Relevant Problems CARDIO (+) Hypertension NEURO-PSYCH (+) Headache PULMONARY (+) Asthma (HCC) Obesity Current smoker Psoriasis Diabetes mellitus type 2, insulin dependent (HCC) Spinal stenosis Substance History Current as of 01/18/25 0902 Smoking Status: Every Day - 20 pack years Smokeless Tobacco Status: Never Comments: 1/2 PPD Alcohol use: No Drug use: No I - PHYSICAL EVALUATION AIRWAY Patient intubated: No. Tracheostomy tube not present Mallampati: II. TM distance: >3 FB. Neck ROM: full ROM without neurological symptoms. Mouth opening: adequate. Short neck: no. Thick neck: yes Rajan present: no Lip Bite Test: II Microretrognathia/Micro nagthia/Recessed Chin: No DENTAL Dental findings: poor dentition, missing tooth/teeth, chipped and broken tooth. Additional comments: Edentulous upper.. Additional exam findings: yes. CARDIOVASCULAR Rhythm: regular PULMONARY Breath sounds clear to auscultation. ABDOMINAL Obese: obesity present. II - ANESTHESIA PLAN ASA Score: 3 Anesthetic Plan: MAC The patient is a current smoker. NPO Status: adequate Beta Mir Administration of chronic beta mir medication planned. Monitoring Plan Monitoring plan: standard ASA. Post Procedure Analgesic Plan Postoperative analgesic plan: multimodal analgesia. Informed Consent Anesthetic risks, benefits, alternatives, personnel and consent discussed: yes. Patient / Responsible Republican agrees to proceed: yes Patient / Surrogate agrees to blood products: Yes Discussed the possibility of lip / dental damage: yes Vitals Value Taken Time BP 141/71 01/18/25 0848 Pulse 122 01/18/25 0855 Resp 16 01/18/25 0847 Temp 36.8 ?C (98.3 ?F) 01/18/25 0847 SpO2 95 % 01/18/25 0850 Vitals shown include unfiled device data. Facility-Administered Medications as of 01/18/2025 Medication Dose Route Frequency [Transfer Hold] lactated ringers iv infusion 75 mL/hr INTRAVENOUS CONTINUOUS [COMPLETED] SUMAtriptan 50 mg tab(s) (IMITREX) 50 mg ORAL ONCE [COMPLETED] traZODone 50 mg tab(s) (DESYREL) 50 mg ORAL ONCE [COMPLETED] ALPRAZolam 0.5 mg tab(s) (XANAX) 0.5 mg ORAL ONCE [COMPLETED] morphine 1 mg injection 1 mg INTRAVENOUS ONCE [Transfer Hold] atorvastatin 40 mg tab(s) (LIPITOR) 40 mg ORAL AT BEDTIME [Transfer Hold] hydrALAZINE 50 mg tab(s) (APRESOLINE) 50 mg ORAL q 8 H [COMPLETED] morphine 1 mg injection 1 mg INTRAVENOUS ONCE [Transfer Hold] nicotine 21 mg/24 hr 1 Patch (NICODERM) 1 Patch TRANSDERMAL DAILY And [Transfer Hold] nicotine -- REMOVE patch OTHER DAILY And [Transfer Hold] nicotine - verify patch OTHER q 8 H [Transfer Hold] nicotine polacrilex 2 mg gum (NICORETTE) 2 mg ORAL q 2 H PRN [Transfer Hold] LORazepam 0.5 mg tab(s) (ATIVAN) 0.5 mg ORAL TID PRN [COMPLETED] morphine 1 mg injection 1 mg INTRAVENOUS ONCE [COMPLETED] morphine 1 mg injection 1 mg INTRAVENOUS ONCE [COMPLETED] magnesium sulfate 1 g in D5W 100 mL 1 g INTRAVENOUS ONCE [COMPLETED] potassium chloride ER 10 mEq tab(s) (KLOR-CON M10) (more content not included)... Normal [facility] Basic metabolic 2000 panelon 01-18-2025 Anion gap [Moles/Vol] 6 mmol/L Normal 5-16 [facility] Comment on above: Order Comment: Speci men Type: BLOOD SPECIMENOrdering Facility: [facility] Address: [address] [place] [address] Performed By: #### 2 4321-2 ####[facility] [id number] [place] [address] [place] Calcium [Mass/Vol] 8.9 mg/dL Normal 8.5-10.5 [facility] Comment on above: Order Comment: Speci men Type: BLOOD SPECIMENOrdering Facility: [facility] Address: [address] [place] [address] Performed By: #### 2 4321-2 ####[facility] [id number] [place] [address] [place] Chloride [Moles/Vol] 103 mmol/L Normal 98-107 [facility] Comment on above: Order Comment: Speci men Type: BLOOD SPECIMENOrdering Facility: [facility] Address: [address] [place] [address] Performed By: #### 2 4321-2 ####[facility]IA [id number] [place] [address] [place] CO2 [Moles/Vol] 23 mmol/L Normal 21-32 [facility] Comment on above: Order Comment: Speci men Type: BLOOD SPECIMENOrdering Facility: [facility] Address: [address] [place] [address] Performed By: #### 2 4321-2 ####[facility]CLIA [id number] [place] [address] [place] Creatinine [Mass/Vol] 1.21 mg/dL High 0.51-0.95 [facility] Comment on above: Order Comment: Speci men Type: BLOOD SPECIMENOrdering Facility: [facility] Address: [address] [place] [address] Result Comment: Livia ents receiving either N-Acetylcysteine (NAC) or Metamizole prior to venipuncture, may have falsely depressed results. Performed By: #### 2 4321-2 ####[facility]ORYCLIA [id number] [place] [address] [place] Creatinine and Glomerular filtration rate.predicted panel (S/P/Bld) 53 mL/min/1.73m??? Low >=60 [facility] Comment on above: Order Comment: Lacey coleman Type: BLOOD SPECIMENOrdering Facility: [facility] Address: [address] [place] [address] Result Comment: Jazmin mated Glomerular Filtration Rate (eGFR) is calculated using the 2020 CKD-EPI creatinine equation. This equation utilizes serum creatinine, sex, and age as parameters. The creatinine assay has traceable calibration to isotope dilution-mass spectrometry. Refer to KDIGO guidelines for clinical interpretation. In patients with unstable renal function, e.g. those with acute kidney injury, the eGFR may not accurately reflect actual GFR. Performed By: #### 2 4321-2 ####[facility]ORY[facility]IA [id number] [place] [address] [place] Glucose [Mass/Vol] 260 mg/dL High 70-100 [facility] Comment on above: Order Comment: Lacey coleman Type: BLOOD SPECIMENOrdering Facility: [facility] Address: [address] [place] [address] Result Comment: The [place] Diabetes Association (ADA) provides guidance for cutoff values for fasting glucose and random glucose. The ADA defines fasting as no caloric intake for at least 8 hours. Fasting plasma glucose results between 100 to 125 mg/dL indicate increased risk for diabetes (prediabetes). Fasting plasma glucose results greater than or equal to 126 mg/dL meet the criteria for diagnosis of diabetes. In the absence of unequivocal hyperglycemia, results should be confirmed by repeat testing. In a patient with classic symptoms of hyperglycemia or hyperglycemic crisis, random plasma glucose results greater than or equal to 200 mg/dL meet the criteria for diagnosis of diabetes. Reference: Standards of Medical Care in Diabetes 2016, [place] Diabetes Association. Diabetes Care. 2016.39(Suppl 1). Results may be falsely elevated after the administration of Sulfapyridine. Results may be falsely depressed after the administration of Sulfasalazine. Performed By: #### 2 4321-2 ####[facility]ORYCLIA [id number] [address] [place] Potassium [Moles/Vol] 5.7 mmol/L High 3.5-5.1 [facility] Comment on above: Order Comment: Speci men Type: BLOOD SPECIMENOrdering Facility: [facility] Address: [address] [place] [address] Performed By: #### 2 4321-2 ####[facility]ORYCLIA [id number] [address] [place] Sodium [Moles/Vol] 132 mmol/L Low 136-145 [facility] Comment on above: Order Comment: Speci men Type: BLOOD SPECIMENOrdering Facility: [facility] Address: [address] [place] [address] Performed By: #### 2 4321-2 ####[facility]ORYCLIA [id number] [address] [place] Urea nitrogen [Mass/Vol] 25 mg/dL Normal 7-26 [facility] Comment on above: Order Comment: Speci men Type: BLOOD SPECIMENOrdering Facility: [facility] Address: [address] [place] [address] Performed By: #### 2 4321-2 ####[facility]ORYCLIA [id number] [address] [place] Anion gap [Moles/Vol] 10 mmol/L Normal 5-16 [facility] Comment on above: Order Comment: Speci men Type: BLOOD SPECIMENOrdering Facility: [facility] Address: [address] [place] [address] Performed By: #### 2 4321-2 ####[facility]ORYCLIA [id number] [place] [address] [place] Calcium [Mass/Vol] 9.6 mg/dL Normal 8.5-10.5 [facility] Comment on above: Order Comment: Speci men Type: BLOOD SPECIMENOrdering Facility: [facility] Address: [address] [place] [address] Performed By: #### 2 4321-2 ####[facility]ORYCLIA [id number] [place] [id number] [place] Chloride [Moles/Vol] 103 mmol/L Normal 98-107 [facility] Comment on above: Order Comment: Speci men Type: BLOOD SPECIMENOrdering Facility: [facility] Address: [address] [place] [address] Performed By: #### 2 4321-2 ####[facility]ORYCLIA [id number] [place] [address] [place] CO2 [Moles/Vol] 26 mmol/L Normal 21-32 [facility] Comment on above: Order Comment: Speci men Type: BLOOD SPECIMENOrdering Facility: [facility] Address: [address] [place] [address] Performed By: #### 2 4321-2 ####[facility]ATORYCLIA [id number] [place] [address] [place] Creatinine [Mass/Vol] 3.76 mg/dL High 0.51-0.95 [facility] Comment on above: Order Comment: Speci men Type: BLOOD SPECIMENOrdering Facility: [facility] Address: [address] [place] [address] Result Comment: Livia ents receiving either N-Acetylcysteine (NAC) or Metamizole prior to venipuncture, may have falsely depressed results. Performed By: #### 2 4321-2 ####[facility]ORYCLIA [id number] [place] [address] [place] Creatinine and Glomerular filtration rate.predicted panel (S/P/Bld) 14 mL/min/1.73m??? Low >=60 [facility] Comment on above: Order Comment: Speci men Type: BLOOD SPECIMENOrdering Facility: [facility] Address: [address] [place] [id number] Result Comment: Jazmin mated Glomerular Filtration Rate (eGFR) is calculated using the 2020 CKD-EPI creatinine equation. This equation utilizes serum creatinine, sex, and age as parameters. The creatinine assay has traceable calibration to isotope dilution-mass spectrometry. Refer to KDIGO guidelines for clinical interpretation. In patients with unstable renal function, e.g. those with acute kidney injury, the eGFR may not accurately reflect actual GFR. Performed By: #### 2 4321-2 ####[facility]ORYCLIA [id number] [place] [address] [place] Glucose [Mass/Vol] 68 mg/dL Low 70-100 [facility] Comment on above: Order Comment: Lacey coleman Type: BLOOD SPECIMENOrdering Facility: [facility] Address: [address] [place] [address] Result Comment: The [place] Diabetes Association (ADA) provides guidance for cutoff values for fasting glucose and random glucose. The ADA defines fasting as no caloric intake for at least 8 hours. Fasting plasma glucose results between 100 to 125 mg/dL indicate increased risk for diabetes (prediabetes). Fasting plasma glucose results greater than or equal to 126 mg/dL meet the criteria for diagnosis of diabetes. In the absence of unequivocal hyperglycemia, results should be confirmed by repeat testing. In a patient with classic symptoms of hyperglycemia or hyperglycemic crisis, random plasma glucose results greater than or equal to 200 mg/dL meet the criteria for diagnosis of diabetes. Reference: Standards of Medical Care in Diabetes 2016, [place] Diabetes Association. Diabetes Care. 2016.39(Suppl 1). Results may be falsely elevated after the administration of Sulfapyridine. Results may be falsely depressed after the administration of Sulfasalazine. Performed By: #### 2 4321-2 ####[facility]ATORYCLIA [id number] [place] [address] [place] Potassium [Moles/Vol] 4.8 mmol/L Normal 3.5-5.1 [facility] Comment on above: Order Comment: Lacey coleman Type: BLOOD SPECIMENOrdering Facility: [facility] Address: [address] [place] [id number] Performed By: #### 2 4321-2 ####[facility]ATORYCLIA [id number] [address] STATES OF [facility] Sodium [Moles/Vol] 139 mmol/L Normal 136-145 [facility] Comment on above: Order Comment: Speci men Type: BLOOD SPECIMENOrdering Facility: [facility] Address: [address] [place] [address] Performed By: #### 2 4321-2 ####[facility]ATORYCLIA [id number] [place] [address] [place] Urea nitrogen [Mass/Vol] 54 mg/dL High 7- [facility] Comment on above: Order Comment: Speci men Type: BLOOD SPECIMENOrdering Facility: [facility] Address: [address] [place] [address] Performed By: #### 2 4321-2 ####[facility]ATORYCLIA [id number] [address] STATES OF [facility] CBC W Auto Differential pane l (Bld)on 01-18-2025 Basophils (Bld) [#/Vol] 0.10 10*3/uL Normal <0.11 [facility] Comment on above: Order Comment: Speci men Type: BLOOD SPECIMENOrdering Facility: [facility] Address: [address] [place] [address] Performed By: #### 5 7021-8 ####[facility]ATORYCLIA [id number] [address] [place] Basophils/100 WBC (Bld) 0.8 % Normal [facility] Comment on above: Order Comment: Speci men Type: BLOOD SPECIMENOrdering Facility: [facility] Address: [address] [place] [address] Performed By: #### 5 7021-8 ####[facility] LABORATORYCLIA [id number] [address] [place] Differential cell count method Nom (Bld) Auto Normal [facility] Comment on above: Order Comment: Speci men Type: BLOOD SPECIMENOrdering Facility: [facility] Address: [address] [place] [address] Performed By: #### 5 7021-8 ####[facility] LABORATORYCLIA [id number] [place] [address] [place] Eosinophils (Bld) [#/Vol] 0.44 10*3/uL Normal <0.46 [facility] Comment on above: Order Comment: Speci men Type: BLOOD SPECIMENOrdering Facility: [facility] Address: [address] [place] [address] Performed By: #### 5 7021-8 ####[facility] LABORATORYCLIA [id number] [address] [place] Eosinophils/100 WBC (Bld) 3.5 % Normal [facility] Comment on above: Order Comment: Speci men Type: BLOOD SPECIMENOrdering Facility: [facility] Address: [address] [place] [address] Performed By: #### 5 7021-8 ####[facility] LABORATORYCLIA [id number] [address] [place] Erythrocyte distribution width (RBC) [Ratio] 17.3 % High 11.5-15.0 [facility] Comment on above: Order Comment: Speci men Type: BLOOD SPECIMENOrdering Facility: [facility] Address: [address] [place] [address] Performed By: #### 5 7021-8 ####[facility] LABORATORYCLIA [id number] [address] [place] Hematocrit (Bld) [Volume fraction] 29.3 % Low 36.0-46.0 [facility] Comment on above: Order Comment: Speci men Type: BLOOD SPECIMENOrdering Facility: [facility] Address: [address] [place] [address] Performed By: #### 5 7021-8 ####[facility] LABORATORYCLIA [id number] [place] [address] [place] Hemoglobin (Bld) [Mass/Vol] 8.7 g/dL Low 11.5-15.5 [facility] Comment on above: Order Comment: Speci men Type: BLOOD SPECIMENOrdering Facility: [facility] Address: [address] [place] [address] Performed By: #### 5 7021-8 ####[facility] LABORATORYCLIA [id number] [place] [id number] [place] Immature granulocytes (Bld) [#/Vol] 0.34 10*3/uL High <0.10 [facility] Comment on above: Order Comment: Speci men Type: BLOOD SPECIMENOrdering Facility: [facility] Address: [address] [place] [address] Performed By: #### 5 7021-8 ####[facility] LABORATORYCLIA [id number] [place] [address] [place] Immature granulocytes/100 WBC (Bld) 2.7 % Normal [facility] Comment on above: Order Comment: Speci men Type: BLOOD SPECIMENOrdering Facility: [facility] Address: [address] [place] [address] Performed By: #### 5 7021-8 ####[facility] LABORATORYCLIA [id number] [place] [address] [place] Lymphocytes (Bld) [#/Vol] 2.99 10*3/uL Normal 1.00-4.00 [facility] Comment on above: Order Comment: Speci men Type: BLOOD SPECIMENOrdering Facility: [facility] Address: [address] [place] [address] Performed By: #### 5 7021-8 ####[facility] LABORATORYCLIA [id number] [place] [address] [place] Lymphocytes/100 WBC (Bld) 24.0 % Normal [facility] Comment on above: Order Comment: Speci men Type: BLOOD SPECIMENOrdering Facility: [facility] Address: [address] [place] [address] Performed By: #### 5 7021-8 ####[facility] LABORATORYCLIA [id number] [address] [place] MCH (RBC) [Entitic mass] 27.3 pg Normal 26.0-34.0 [facility] Comment on above: Order Comment: Speci men Type: BLOOD SPECIMENOrdering Facility: [facility] Address: [address] [place] [address] Performed By: #### 5 7021-8 ####[facility] LABORATORYCLIA [id number] [address] [place] MCHC (RBC) [Mass/Vol] 29.7 g/dL Low 30.5-36.0 [facility] Comment on above: Order Comment: Speci men Type: BLOOD SPECIMENOrdering Facility: [facility] Address: [address] [place] [address] Performed By: #### 5 7021-8 ####[facility] LABORATORYCLIA [id number] [address] [place] MCV (RBC) [Entitic vol] 91.8 fL Normal 80.0-100.0 [facility] Comment on above: Order Comment: Speci men Type: BLOOD SPECIMENOrdering Facility: [facility] Address: [address] [place] [address] Performed By: #### 5 7021-8 ####[facility] LABORATORYCLIA [id number] [address] [place] Monocytes (Bld) [#/Vol] 1.01 10*3/uL High <0.87 [facility] Comment on above: Order Comment: Speci men Type: BLOOD SPECIMENOrdering Facility: [facility] Address: [address] [place] [address] Performed By: #### 5 7021-8 ####[facility] LABORATORYCLIA [id number] [address] Monocytes/100 WBC (Bld) 8.1 % Normal [facility] Comment on above: Order Comment: Speci men Type: BLOOD SPECIMENOrdering Facility: [facility] Address: [address] [place] [address] Performed By: #### 5 7021-8 ####[facility] LABORATORYCLIA [id number] [place] [id number] [place] Neutrophils (Bld) [#/Vol] 7.58 10*3/uL High 1.45-7.50 [facility] Comment on above: Order Comment: Speci men Type: BLOOD SPECIMENOrdering Facility: [facility] Address: [address] [place] [address] Performed By: #### 5 7021-8 ####[facility] LABORATORYCLIA [id number] [place] [address] [place] Neutrophils/100 WBC (Bld) 60.9 % Normal [facility] Comment on above: Order Comment: Speci men Type: BLOOD SPECIMENOrdering Facility: [facility] Address: [address] [place] [address] Performed By: #### 5 7021-8 ####[facility] LABORATORYCLIA [id number] [place] [address] [place] Nucleated RBC (Bld) [#/Vol] 10*3/uL Normal <0.01 [facility] Comment on above: Order Comment: Speci men Type: BLOOD SPECIMENOrdering Facility: [facility] Address: [address] [place] [address] Performed By: #### 5 7021-8 ####[facility] LABORATORYCLIA [id number] [place] [address] [place] Nucleated RBC/100 WBC (Bld) [Ratio] 0.0 /[address] [facility] Comment on above: Order Comment: Speci men Type: BLOOD SPECIMENOrdering Facility: [facility] Address: [address] [place] [address] Performed By: #### 5 7021-8 ####[facility] LABORATORYCLIA [id number] [place] [address] [place] Platelet mean volume (Bld) [Entitic vol] 8.0 fL Low 9.0-12.7 [facility] Comment on above: Order Comment: Speci men Type: BLOOD SPECIMENOrdering Facility: [facility] Address: [address] [place] [address] Performed By: #### 5 7021-8 ####[facility] LABORATORYCLIA [id number] [address] Platelets (Bld) [#/Vol] 692 10*3/uL High 150-400 [facility] Comment on above: Order Comment: Speci men Type: BLOOD SPECIMENOrdering Facility: [facility] Address: [address] [place] [address] Performed By: #### 5 7021-8 ####[facility] LABORATORYCLIA [id number] [address] RBC (Bld) [#/Vol] 3.19 10*6/uL Low 3.90-5.20 [facility] Comment on above: Order Comment: Speci men Type: BLOOD SPECIMENOrdering Facility: [facility] Address: [address] [place] [address] Performed By: #### 5 7021-8 ####[facility] LABORATORYCLIA [id number] [address] WBC (Bld) [#/Vol] 12.46 10*3/uL High 3.70-11.00 [facility] Comment on above: Order Comment: Speci men Type: BLOOD SPECIMENOrdering Facility: [facility] Address: [address] [place] [address] Performed By: #### 5 7021-8 ####[facility] LABORATORYCLIA [id number] [place] [id number] [facility] HISTORY PHYSICALon HISTORY PHYSICAL HNO ID: [id number] Author: KIMI SUÁREZ MD Service: Vascular Surgery Author Type: Physician Type: H&P Filed: 01/18/2025 09:36 Note Text: See HANDP, no change Plan aortogram a dailynd renal angiogram and intervention as needed Kimi Suárez MD [facility] NURSING PROGon 01-18-2025 NURSING PROG HNO ID: [id number] Author: EMILY LOCO, RN Service: Nursing Author Type: Registered Nurse Type: Nursing Progress Note Filed: 01/18/2025 13:36 Note Text: Patient complain of intense bladder pressure and unable to urinate on the bedpan. Bladder scan for >600. Order obtained from Dr. Mcmillan to straight cath. Patient straight cath for 700 clear yellow urine. Patient tolerated well and feels much better. [facility] OPERATIVE NOon 01-18-2025 OPERATIVE NO HNO ID: [id number] Author: KIMI SUÁREZ MD Service: Vascular Surgery Author Type: Physician Type: Operative Report Filed: 01/18/2025 11:13 Note Text: OPERATIVE/PROCEDURE REPORT LOG ID: [id number] SURGERY/PROCEDURE DATE: 01/18/2025 INCISION/PROCEDURE START TIME: INCISION CLOSE/PROCEDURE END TIME: SURGEON(S)/PROCEDURALIS T(S) AND SCIENTIFIC PUBLICATIONS EDITOR(S): Surgeons and Role: * Kimi Suárez MD - Primary No Additional Staff SURGERY/PROCEDURE(S): 1. Ultrasound-guided access retrograde right common femoral artery. 2. Aortogram with bilateral renal artery angiogram. 3. Selective right renal angiogram. 4. Balloon angioplasty renal artery with a 4 mm Mamadou and then stent with a 6 x 14 express SD with post ballooning 6 mm Mamadou. 5. Closure with Mynx ANESTHESIA: Monitored Anesthesia Care SURGERY/PROCEDURE DETAILS: Patient brought to operating room. Underwent appropriate timeout consent. Underwent MAC. Was prepped and draped in a sterile fashion. We did ultrasound-guided access retrograde right common femoral artery. Put a Glidewire and then a 6 Latvian sheath. Gave 3000 units of heparin. Brought in a pigtail catheter did an aortogram with bilateral renal angios. We then selected out the right renal artery and did selective angiogram showing the severe stenosis. This was right at where it bifurcated in the appeared to extend a little bit into the main branch. We ballooned it several times with a 6 x 2 and a 6 x 4 Mamadou. Still had some moderate disease with poor flow so we elected the stent but had a stent just before it bifurcated sweating cover the first main branch. We then post ballooned this with a 6 mm Mamadou and at the distal part into the main renal artery with a 6 mm Mamadou. Completion was much improved with much better flow through this and the remained good flow into the sidebranch. We then removed out the sheets deployed a minx with good hemostasis. Brought to recovery stable condition. Fluoroscopy: Fluoroscopy: 9.6 minutes Dose: 2553 mGy Contrast dye: 30 cc PRE-OP/PRE-PROCEDURE DIAGNOSIS: Hypertension with renal artery stenosis POST-OP/POST-PROCEDURE DIAGNOSIS: Same ESTIMATED BLOOD LOSS: Minimal SPECIMENS: None IMPLANTABLE DEVICES: Stent DRAINS: None COMPLICATIONS: None SIGNATURE: Kimi Suárez MD PATIENT NAME: Nadia Anglin DATE: January 18, 2025 TIME: 10:[address] [facility] US KIDNEY/BLADDERon 01-19-20 US KIDNEY/BLADDER * * *Final Report* * * DATE OF EXAM: Jan 18 2025 6:11PM RHU [id number] - US KIDNEY/BLADDER / PROCEDURE REASON: Kidney failure, acute * * * * Physician Interpretation * * * * EXAMINATION: RENAL ULTRASOUND CLINICAL HISTORY: Kidney failure, acute TECHNIQUE: Sonography of the kidneys and urinary bladder was performed. Images were obtained and stored in a permanent archive. MQ: [id number] COMPARISON: None RESULT: Right Kidney: -Renal length: 11.7 cm -Parenchyma: Normal parenchymal echogenicity. Normal parenchymal thickness. -Collecting system: No hydronephrosis. -Calculus: No echogenic, shadowing calculus. -Lesion: None. Left Kidney: -Renal length: 10.0 cm -Parenchyma: Normal parenchymal echogenicity. Normal parenchymal thickness. -Collecting system: No hydronephrosis. -Calculus: No echogenic, shadowing calculus. -Lesion: None. Bladder: Collapsed with a Mitchell catheter in place. IMPRESSION: Unremarkable renal ultrasound. Senior Economist: PSCB Transcribe Date/Time: Jan 19 2025 8:55A Dictated by : TYESHA العراقي MD This examination was interpreted and the report reviewed and electronically signed by: TYESHA العراقي MD on Jan 19 2025 8:56AM EST [id number] Normal [facility] CBC panel Auto (Bld)on 01-16 Erythrocyte distribution width (RBC) [Ratio] 13.7 % Normal 11.5-15.0 [facility] Comment on above: Order Comment: Speci men Type: BLOOD SPECIMENOrdering Facility: [facility] Address: [address] [place] [address] Performed By: #### 5 8410-2 ####[facility] LABORATORYCLIA [id number] [place] [address] [place] Hematocrit (Bld) [Volume fraction] 38.5 % Normal 36.0-46.0 [facility] Comment on above: Order Comment: Speci men Type: BLOOD SPECIMENOrdering Facility: [facility] Address: [address] [place] [address] Performed By: #### 5 8410-2 ####[facility] LABORATORYCLIA [id number] [place] [address] [place] Hemoglobin (Bld) [Mass/Vol] 12.7 g/dL Normal 11.5-15.5 [facility] Comment on above: Order Comment: Speci men Type: BLOOD SPECIMENOrdering Facility: [facility] Address: [address] [place] [address] Performed By: #### 5 8410-2 ####[facility] LABORATORYCLIA [id number] [place] [address] [place] MCH (RBC) [Entitic mass] 30.2 pg Normal 26.0-34.0 [facility] Comment on above: Order Comment: Speci men Type: BLOOD SPECIMENOrdering Facility: [facility] Address: [address] [place] [address] Performed By: #### 5 8410-2 ####[facility] LABORATORYCLIA [id number] [place] [address] [place] MCHC (RBC) [Mass/Vol] 33.0 g/dL Normal 30.5-36.0 [facility] Comment on above: Order Comment: Speci men Type: BLOOD SPECIMENOrdering Facility: [facility] Address: [address] [place] [address] Performed By: #### 5 8410-2 ####[facility] LABORATORYCLIA [id number] [place] [id number] [place] MCV (RBC) [Entitic vol] 91.4 fL Normal 80.0-100.0 [facility] Comment on above: Order Comment: Speci men Type: BLOOD SPECIMENOrdering Facility: [facility] Address: [address] [place] [address] Performed By: #### 5 8410-2 ####[facility] LABORATORYCLIA [id number] [address] [place] Nucleated RBC (Bld) [#/Vol] 10*3/uL Normal <0.01 [facility] Comment on above: Order Comment: Speci men Type: BLOOD SPECIMENOrdering Facility: [facility] Address: [address] [place] [address] Performed By: #### 5 8410-2 ####[facility] LABORATORYCLIA [id number] [address] [place] Platelet mean volume (Bld) [Entitic vol] 11.0 fL Normal 9.0-12.7 [facility] Comment on above: Order Comment: Speci men Type: BLOOD SPECIMENOrdering Facility: [facility] Address: [address] [place] [address] Performed By: #### 5 8410-2 ####[facility] LABORATORYCLIA [id number] [address] [place] Platelets (Bld) [#/Vol] 127 10*3/uL Low 150-400 [facility] Comment on above: Order Comment: Speci men Type: BLOOD SPECIMENOrdering Facility: [facility] Address: [address] [place] [address] Result Comment: Resu lts checked and verified.No clot detected. Performed By: #### 5 8410-2 ####[facility] LABORATORYCLIA [id number] [place] [address] [place] RBC (Bld) [#/Vol] 4.21 10*6/uL Normal 3.90-5.20 [facility] Comment on above: Order Comment: Speci men Type: BLOOD SPECIMENOrdering Facility: [facility] Address: [address] [place] [address] Performed By: #### 5 8410-2 ####[facility] LABORATORYCLIA [id number] [place] [id number] [facility] WBC (Bld) [#/Vol] 8.07 10*3/uL Normal 3.70-11.00 [facility] Comment on above: Order Comment: Speci men Type: BLOOD SPECIMENOrdering Facility: [facility] Address: [address] [place] [address] Performed By: #### 5 8410-2 ####[facility] LABORATORYCLIA [id number] [place] [id number] [facility] Comprehensive metabolic 2000 panelon 01-16-2025 Albumin [Mass/Vol] 2.8 g/dL Low 3.2-5.0 [facility] Comment on above: Order Comment: Speci men Type: BLOOD SPECIMENOrdering Facility: [facility] Address: [address] [place] [address] Performed By: #### 2 4323-8, 59049-3 ####[facility] LABORATORYCLIA [id number] [place] [id number] [place] ALP [Catalytic activity/Vol] 77 U/L Normal 45-117 [facility] Comment on above: Order Comment: Speci men Type: BLOOD SPECIMENOrdering Facility: [facility] Address: [address] [place] [address] Performed By: #### 2 4323-8, 22155-5 ####[facility] LABORATORYCLIA [id number] [place] [id number] [place] [facility] ALT [Catalytic activity/Vol] 12 U/L Low 13-61 [facility] Comment on above: Order Comment: Speci men Type: BLOOD SPECIMENOrdering Facility: [facility] Address: [address] [place] [address] Result Comment: Resu lts may be falsely depressed after the administration of Sulfasalazine and/or Sulfapyridine. Performed By: #### 2 4323-8, 02438-2 ####[facility] LABORATORYCLIA [id number] [place] [address] [place] Anion gap [Moles/Vol] 8 mmol/L Normal 5-16 [facility] Comment on above: Order Comment: Speci men Type: BLOOD SPECIMENOrdering Facility: [facility] Address: [address] [place] [address] Performed By: #### 2 4323-8, 76407-1 ####[facility] LABORATORYCLIA [id number] [address] [place] AST [Catalytic activity/Vol] 19 U/L Normal 8-34 [facility] Comment on above: Order Comment: Maicoi [place]ia Type: BLOOD SPECIMENOrdering Facility: [facility] Address: [address] [place] [address] Result Comment: Resu lts may be falsely depressed after the administration of Sulfasalazine and/or Sulfapyridine. Performed By: #### 2 4323-8, 69303-7 ####[facility] LABORATORYCLIA [id number] [place] [address] [place] Bilirubin [Mass/Vol] 0.4 mg/dL Normal 0.2-1.0 [facility] Comment on above: Order Comment: Maicoi [place] Type: BLOOD SPECIMENOrdering Facility: [facility] Address: [address] [place] [address] Performed By: #### 2 4323-8, 44947-2 ####[facility] LABORATORYCLIA [id number] [place] [id number] [place] Calcium [Mass/Vol] 9.0 mg/dL Normal 8.5-10.5 [facility] Comment on above: Order Comment: [place] Type: BLOOD SPECIMENOrdering Facility: [facility] Address: [address] [place] [address] Performed By: #### 2 4323-8, 90593-5 ####[facility] LABORATORYCLIA [id number] [place] [address] [place] Chloride [Moles/Vol] 103 mmol/L Normal 98-107 [facility] Comment on above: Order Comment: Speci men Type: BLOOD SPECIMENOrdering Facility: [facility] Address: [address] [place] [address] Performed By: #### 2 4323-8, 56073-0 ####[facility] LABORATORYCLIA [id number] [place] [address] [place] CO2 [Moles/Vol] 24 mmol/L Normal 21-32 [facility] Comment on above: Order Comment: Speci men Type: BLOOD SPECIMENOrdering Facility: [facility] Address: [address] [place] [address] Performed By: #### 2 4323-8, 86113-2 ####[facility] LABORATORYCLIA [id number] [place] [address] [place] Creatinine [Mass/Vol] 1.18 mg/dL High 0.51-0.95 [facility] Comment on above: Order Comment: Speci men Type: BLOOD SPECIMENOrdering Facility: [facility] Address: [address] [place] [address] Result Comment: Livia ents receiving either N-Acetylcysteine (NAC) or Metamizole prior to venipuncture, may have falsely depressed results. Performed By: #### 2 4323-8, 27499-0 ####[facility] LABORATORYCLIA [id number] [address] OF [facility] Creatinine and Glomerular filtration rate.predicted panel (S/P/Bld) 54 mL/min/1.73m??? Low >=60 [facility] Comment on above: Order Comment: Speci men Type: BLOOD SPECIMENOrdering Facility: [facility] Address: [address] [place] [address] Result Comment: Jazmin mated Glomerular Filtration Rate (eGFR) is calculated using the 2020 CKD-EPI creatinine equation. This equation utilizes serum creatinine, sex, and age as parameters. The creatinine assay has traceable calibration to isotope dilution-mass spectrometry. Refer to KDIGO guidelines for clinical interpretation. In patients with unstable renal function, e.g. those with acute kidney injury, the eGFR may not accurately reflect actual GFR. Performed By: #### 2 4323-8, 93384-2 ####[facility] LABORATORYCLIA [id number] [place] [id number] [place] Glucose [Mass/Vol] 242 mg/dL High 70-100 [facility] Comment on above: Order Comment: Lacey coleman Type: BLOOD SPECIMENOrdering Facility: [facility] Address: [address] [place] [address] Result Comment: The [place] Diabetes Association (ADA) provides guidance for cutoff values for fasting glucose and random glucose. The ADA defines fasting as no caloric intake for at least 8 hours. Fasting plasma glucose results between 100 to 125 mg/dL indicate increased risk for diabetes (prediabetes). Fasting plasma glucose results greater than or equal to 126 mg/dL meet the criteria for diagnosis of diabetes. In the absence of unequivocal hyperglycemia, results should be confirmed by repeat testing. In a patient with classic symptoms of hyperglycemia or hyperglycemic crisis, random plasma glucose results greater than or equal to 200 mg/dL meet the criteria for diagnosis of diabetes. Reference: Standards of Medical Care in Diabetes 2016, [place] Diabetes Association. Diabetes Care. 2016.39(Suppl 1). Results may be falsely elevated after the administration of Sulfapyridine. Results may be falsely depressed after the administration of Sulfasalazine. Performed By: #### 2 4323-8, ####[facility] LABORATORYCLIA [id number] [place] [address] [place] Potassium [Moles/Vol] 4.8 mmol/L Normal 3.5-5.1 [facility] Comment on above: Order Comment: Lacey coleman Type: BLOOD SPECIMENOrdering Facility: [facility] Address: [address] [place] [address] Performed By: #### 2 4323-8, 07218-6 ####[facility] LABORATORYCLIA [id number] [place] [id number] [place] Protein [Mass/Vol] 6.8 g/dL Normal 6.0-8.5 [facility] Comment on above: Order Comment: Speci men Type: BLOOD SPECIMENOrdering Facility: [facility] Address: [address] [place] [address] Performed By: #### 2 4323-8, 53648-8 ####[facility] LABORATORYCLIA [id number] [place] [id number] [place] OF [facility] Sodium [Moles/Vol] 135 mmol/L Low 136-145 [facility] [facility] Comment on above: Order Comment: Speci men Type: BLOOD SPECIMENOrdering Facility: [facility] Address: [address] [place] [address] Performed By: #### 2 4323-8, 58331-1 ####[facility] LABORATORYCLIA [id number] [address] [place] Urea nitrogen [Mass/Vol] 24 mg/dL Normal 7-26 [facility] Comment on above: Order Comment: Speci men Type: BLOOD SPECIMENOrdering Facility: [facility] Address: [address] [place] [address] Performed By: #### 2 4323-8, 87213-5 ####[facility] LABORATORYCLIA [id number] [place] [id number] [place] Lipid 1996 panelon 5 Cholesterol [Mass/Vol] 149 mg/dL Normal 0-199 [facility] Comment on above: Order Comment: Speci men Type: BLOOD SPECIMENOrdering Facility: [facility] Address: [address] [place] [address] Result Comment: <200 mg/dL, Desirable 200-239 mg/dL, Borderline high >239 mg/dL, High Performed By: #### 2 4323-8, 84813-7 ####[facility] LABORATORYCLIA [id number] [place] [id number] [place] Cholesterol in HDL [Mass/Vol] 38 mg/dL Low >40 [facility] Comment on above: Order Comment: Speci men Type: BLOOD SPECIMENOrdering Facility: [facility] Address: [address] [place] [address] Result Comment: 40-5 9 mg/dL, Acceptable >59 mg/dL, High: Negative risk factor for coronary heart disease <40 mg/dL, Low: Positive risk factor for coronary heart disease Performed By: #### 2 4323-8, 12527-0 ####[facility] LABORATORYCLIA [id number] [place] [id number] [facility] Cholesterol in LDL [Mass/Vol] 84 mg/dL Normal 0-129 [facility] Comment on above: Order Comment: Speci men Type: BLOOD SPECIMENOrdering Facility: [facility] Address: [address] [place] [address] Result Comment: <100 mg/dL, Optimal 100-129 mg/dL, Near optimal/above optimal 130-159 mg/dL, Borderline high 160-189 mg/dL, High >189 mg/dL, Very high Secondary prevention optimal LDL Cholesterol levels are recommended to be < 70 mg/dL Performed By: #### 2 4323-8, 26680-3 ####[facility] LABORATORYCLIA [id number] [address] Cholesterol in LDL/Cholesterol in HDL [Mass ratio] 2.21 {ratio} Normal <2.54 [facility] Comment on above: Order Comment: Maicoi men Type: BLOOD SPECIMENOrdering Facility: [facility] Address: [address] [place] [address] Result Comment: Refe rence: 1. National Cholesterol Education Program ATP III Guideline At-A-Glance Quick Desk Reference: National Heart, Lung, and Blood [place]. National Institutes of Health. 2001: NIH Publication No. 01-3305. 2. An International Atherosclerosis Society position paper: global recommendations for the management of dyslipidemia: executive summary, Atherosclerosis. 2014: 232(2):410-413. Performed By: #### 2 4323-8, 40619-1 ####[facility] LABORATORYCLIA [id number] [place] [id number] [facility] [place] Cholesterol in VLDL [Mass/Vol] 27 mg/dL Normal <30 [facility] Comment on above: Order Comment: Speci men Type: BLOOD SPECIMENOrdering Facility: [facility] Address: [address] [place] [address] Performed By: #### 2 4323-8, 22119-9 ####[facility] LABORATORYCLIA [id number] [place] [id number] [facility] Cholesterol non HDL [Mass/Vol] 111 mg/dL Normal <130 [facility] Comment on above: Order Comment: Speci men Type: BLOOD SPECIMENOrdering Facility: [facility] Address: [address] [place] [address] Result Comment: <130 mg/dL, Optimal 130-159 mg/dL, Near optimal/above optimal 160-189 mg/dL, Borderline high 190-219 mg/dL, High >219 mg/dL, Very high Secondary prevention optimal non HDL Cholesterol levels are recommended to be <100 mg/dL Performed By: #### 2 4323-8, 12507-7 ####[facility] LABORATORYCLIA [id number] [address] STATES OF [facility] Cholesterol.total/Giulia sterol in HDL [Mass ratio] 3.92 {ratio} Normal <5.10 [facility] Comment on above: Order Comment: Speci men Type: BLOOD SPECIMENOrdering Facility: [facility] Address: [address] [place] [address] Performed By: #### 2 4323-8, 92714-1 ####[facility] LABORATORYCLIA [id number] [place] [id number] [place] FASTING TIME 9pm Normal [facility] Comment on above: Order Comment: Speci men Type: BLOOD SPECIMENOrdering Facility: [facility] Address: [address] [place] [address] Performed By: #### 2 4323-8, 12629-8 ####[facility] LABORATORYCLIA [id number] [place] [id number] [place] Triglyceride [Mass/Vol] 133 mg/dL Normal 30-149 [facility] Comment on above: Order Comment: Speci men Type: BLOOD SPECIMENOrdering Facility: [facility] Address: [address] [place] [address] Result Comment: <150 mg/dL, Normal 150-199 mg/dL, Borderline high 200-499 mg/dL, High >499 mg/dL, Very high Patients receiving either N-Acetylcysteine (NAC) or Metamizole prior to venipuncture, may have falsely depressed results. Performed By: #### 2 4323-8, 96802-6 ####[facility] LABORATORYCLIA [id number] [address] OF [facility] CBC panel Auto (Bld)on 01-15 Erythrocyte distribution width (RBC) [Ratio] 13.6 % Normal 11.5-15.0 [facility] Comment on above: Order Comment: Speci men Type: BLOOD SPECIMENOrdering Facility: [facility] Address: [address] [place] [address] Performed By: #### 5 8410-2 ####[facility] LABORATORYCLIA [id number] [address] OF [facility] Hematocrit (Bld) [Volume fraction] 37.6 % Normal 36.0-46.0 [facility] Comment on above: Order Comment: Speci men Type: BLOOD SPECIMENOrdering Facility: [facility] Address: [address] [place] [address] Performed By: #### 5 8410-2 ####[facility] LABORATORYCLIA [id number] [address] [place] Hemoglobin (Bld) [Mass/Vol] 12.4 g/dL Normal 11.5-15.5 [facility] Comment on above: Order Comment: Speci men Type: BLOOD SPECIMENOrdering Facility: [facility] Address: [address] [place] [address] Performed By: #### 5 8410-2 ####[facility] LABORATORYCLIA [id number] [address] [place] MCH (RBC) [Entitic mass] 29.7 pg Normal 26.0-34.0 [facility] Comment on above: Order Comment: Speci men Type: BLOOD SPECIMENOrdering Facility: [facility] Address: [address] [place] [address] Performed By: #### 5 8410-2 ####[facility] LABORATORYCLIA [id number] [address] [place] MCHC (RBC) [Mass/Vol] 33.0 g/dL Normal 30.5-36.0 [facility] Comment on above: Order Comment: Speci men Type: BLOOD SPECIMENOrdering Facility: [facility] Address: [address] [place] [address] Performed By: #### 5 8410-2 ####[facility] LABORATORYCLIA [id number] [place] [address] [place] MCV (RBC) [Entitic vol] 90.0 fL Normal 80.0-100.0 [facility] Comment on above: Order Comment: Speci men Type: BLOOD SPECIMENOrdering Facility: [facility] Address: [address] [place] [address] Performed By: #### 5 8410-2 ####[facility] LABORATORYCLIA [id number] [place] [address] [place] Nucleated RBC (Bld) [#/Vol] 10*3/uL Normal <0.01 [facility] Comment on above: Order Comment: Speci men Type: BLOOD SPECIMENOrdering Facility: [facility] Address: [address] [place] [address] Performed By: #### 5 8410-2 ####[facility]ORATORYCLIA [id number] [address] [place] Platelet mean volume (Bld) [Entitic vol] 11.1 fL Normal 9.0-12.7 [facility] Comment on above: Order Comment: Speci men Type: BLOOD SPECIMENOrdering Facility: [facility] Address: [address] [place] [address] Performed By: #### 5 8410-2 ####[facility] LABORATORYCLIA [id number] [address] [place] Platelets (Bld) [#/Vol] 120 10*3/uL Low 150-400 [facility] Comment on above: Order Comment: Speci men Type: BLOOD SPECIMENOrdering Facility: [facility] Address: [address] [place] [address] Result Comment: No c lot detected. Performed By: #### 5 8410-2 ####[facility]ORATORYCLIA [id number] [place] [address] [place] [facility] RBC (Bld) [#/Vol] 4.18 10*6/uL Normal 3.90-5.20 [facility] Comment on above: Order Comment: Speci men Type: BLOOD SPECIMENOrdering Facility: [facility] Address: [address] [place] [address] Performed By: #### 5 8410-2 ####[facility] LABORATORYCLIA [id number] [address] WBC (Bld) [#/Vol] 7.70 10*3/uL Normal 3.70-11.00 [facility] Comment on above: Order Comment: Speci men Type: BLOOD SPECIMENOrdering Facility: [facility] Address: [address] [place] [address] Performed By: #### 5 8410-2 ####[facility] LABORATORYCLIA [id number] [place] [id number] [facility] Comprehensive metabolic 2000 panelon 01-15-2025 Albumin [Mass/Vol] 3.1 g/dL Low 3.2-5.0 [facility] Comment on above: Order Comment: Speci men Type: BLOOD SPECIMENOrdering Facility: [facility] Address: [address] [place] [address] Performed By: #### 2 4323-8, 2777-1 ####[facility] LABORATORYCLIA [id number] [address] [place] ALP [Catalytic activity/Vol] 81 U/L Normal 45-117 [facility] Comment on above: Order Comment: Speci men Type: BLOOD SPECIMENOrdering Facility: [facility] Address: [address] [place] [address] Performed By: #### 2 4323-8, 2777-1 ####[facility]ORATORYCLIA [id number] [place] [address] [place] ALT [Catalytic activity/Vol] 14 U/L Normal 13-61 [facility] Comment on above: Order Comment: Speci men Type: BLOOD SPECIMENOrdering Facility: [facility] Address: [address] [place] [address] Result Comment: Resu lts may be falsely depressed after the administration of Sulfasalazine and/or Sulfapyridine. Performed By: #### 2 4323-8, 2777-1 ####[facility] LABORATORYCLIA [id number] [address] STATES OF [facility] Anion gap [Moles/Vol] 6 mmol/L Normal 5-16 [facility] Comment on above: Order Comment: Speci men Type: BLOOD SPECIMENOrdering Facility: [facility] Address: [address] [place] [address] Performed By: #### 2 4323-8, 277- ####[facility]ORATORYCLIA [id number] [place] [address] [place] AST [Catalytic activity/Vol] 18 U/L Normal 8-34 [facility] Comment on above: Order Comment: Speci men Type: BLOOD SPECIMENOrdering Facility: [facility] Address: [address] [place] [address] Result Comment: Resu lts may be falsely depressed after the administration of Sulfasalazine and/or Sulfapyridine. Performed By: #### 2 4323-8, 2777-1 ####[facility] LABORATORYCLIA [id number] [place] [id number] [place] Bilirubin [Mass/Vol] 0.4 mg/dL Normal 0.2-1.0 [facility] Comment on above: Order Comment: Speci men Type: BLOOD SPECIMENOrdering Facility: [facility] Address: [address] [place] [address] Performed By: #### 2 4323-8, 2776- ####[facility] LABORATORYCLIA [id number] [place] [address] [place] Calcium [Mass/Vol] 9.3 mg/dL Normal 8.5-10.5 [facility] Comment on above: Order Comment: Speci men Type: BLOOD SPECIMENOrdering Facility: [facility] Address: [address] [place] [address] Performed By: #### 2 4323-8, 2776-10 ####[facility] LABORATORYCLIA [id number] [place] [address] [place] Chloride [Moles/Vol] 104 mmol/L Normal 98-107 [facility] Comment on above: Order Comment: Speci men Type: BLOOD SPECIMENOrdering Facility: [facility] Address: [address] [place] [address] Performed By: #### 2 4323-8, 2776-10 ####[facility] LABORATORYCLIA [id number] [place] [address] [place] CO2 [Moles/Vol] 23 mmol/L Normal 21-32 [facility] Comment on above: Order Comment: Speci men Type: BLOOD SPECIMENOrdering Facility: [facility] Address: [address] [place] [address] [place] [address] Performed By: #### 2 4323-8, 2776-10 ####[facility] LABORATORYCLIA [id number] [place] [address] [place] Creatinine [Mass/Vol] 0.99 mg/dL High 0.51-0.95 [facility] Comment on above: Order Comment: Speci men Type: BLOOD SPECIMENOrdering Facility: [facility] Address: [address] [place] [address] [place] [address] Result Comment: Livia ents receiving either N-Acetylcysteine (NAC) or Metamizole prior to venipuncture, may have falsely depressed results. Performed By: #### 2 4323-8, 27704-19 ####[facility] LABORATORYCLIA [id number] [place] [address] [place] Creatinine and Glomerular filtration rate.predicted panel (S/P/Bld) 67 mL/min/1.73m??? Normal >=60 [facility] Comment on above: Order Comment: Lacey coleman Type: BLOOD SPECIMENOrdering Facility: [facility] Address: [address] [place] [address] Result Comment: Jazmin mated Glomerular Filtration Rate (eGFR) is calculated using the 2020 CKD-EPI creatinine equation. This equation utilizes serum creatinine, sex, and age as parameters. The creatinine assay has traceable calibration to isotope dilution-mass spectrometry. Refer to KDIGO guidelines for clinical interpretation. In patients with unstable renal function, e.g. those with acute kidney injury, the eGFR may not accurately reflect actual GFR. Performed By: #### 2 4323-8, 2777-1 ####[facility] LABORATORYCLIA [id number] [place] [address] [place] Glucose [Mass/Vol] 234 mg/dL High 70-100 [facility] Comment on above: Order Comment: Lacey coleman Type: BLOOD SPECIMENOrdering Facility: [facility] Address: [address] [place] [address] Result Comment: The [place] Diabetes Association (ADA) provides guidance for cutoff values for fasting glucose and random glucose. The ADA defines fasting as no caloric intake for at least 8 hours. Fasting plasma glucose results between 100 to 125 mg/dL indicate increased risk for diabetes (prediabetes). Fasting plasma glucose results greater than or equal to 126 mg/dL meet the criteria for diagnosis of diabetes. In the absence of unequivocal hyperglycemia, results should be confirmed by repeat testing. In a patient with classic symptoms of hyperglycemia or hyperglycemic crisis, random plasma glucose results greater than or equal to 200 mg/dL meet the criteria for diagnosis of diabetes. Reference: Standards of Medical Care in Diabetes 2016, [place] Diabetes Association. Diabetes Care. 2016.39(Suppl 1). Results may be falsely elevated after the administration of Sulfapyridine. Results may be falsely depressed after the administration of Sulfasalazine. Performed By: #### 2 4323-8, 2777-1 ####[facility] LABORATORYCLIA [id number] [place] [address] [place] Potassium [Moles/Vol] 4.7 mmol/L Normal 3.5-5.1 [facility] Comment on above: Order Comment: Speci men Type: BLOOD SPECIMENOrdering Facility: [facility] Address: [address] [place], [place] [address] Performed By: #### 2 4323-8, 2777-1 ####[facility] LABORATORYCLIA [id number] [place] [id number] [place] Protein [Mass/Vol] 7.5 g/dL Normal 6.0-8.5 [facility] Comment on above: Order Comment: Speci men Type: BLOOD SPECIMENOrdering Facility: [facility] Address: [address] [place], [place] [address] Performed By: #### 2 4323-8, 277- ####[facility] LABORATORYCLIA [id number] [place] [address] [place] Sodium [Moles/Vol] 133 mmol/L Low 136-145 [facility] Comment on above: Order Comment: Speci men Type: BLOOD SPECIMENOrdering Facility: [facility] Address: [address] [place], [place] [address] Performed By: #### 2 4323-8, 277- ####[facility] LABORATORYCLIA [id number] [place] [address] [place] Urea nitrogen [Mass/Vol] 20 mg/dL Normal 7-26 [facility] Comment on above: Order Comment: Speci men Type: BLOOD SPECIMENOrdering Facility: [facility] Address: [address] [place] [address] Performed By: #### 2 4323-8, 277- ####[facility] LABORATORYCLIA [id number] [place] [id number] [place] Phosphate SerPl-mCncon 01-15 Phosphate [Mass/Vol] 3.9 mg/dL Normal 2.5-4.9 [facility] Comment on above: Order Comment: Speci men Type: BLOOD SPECIMENOrdering Facility: [facility] Address: [address] [place] [address] Result Comment: Elev ated m-protein (paraprotein) levels in the serum may be exhibited in patients with monoclonal gammopathies, causing falsely elevated inorganic phosphorus results. Performed By: #### 2 4323-8, 2776- ####[facility]ORATORYCLIA [id number] [place] [id number] [place] Basic metabolic 2000 panelon 01-14-2025 Anion gap [Moles/Vol] 6 mmol/L Normal 5-16 [facility] Comment on above: Order Comment: Speci men Type: BLOOD SPECIMENOrdering Facility: [facility] Address: [address] [place] [address] Performed By: #### 2 4321-2, , 2776-10 ####[facility] LABORATORYCLIA [id number] [place] [id number] [place] Calcium [Mass/Vol] 9.0 mg/dL Normal 8.5-10.5 [facility] Comment on above: Order Comment: Speci men Type: BLOOD SPECIMENOrdering Facility: [facility] Address: [address] [place] [address] Performed By: #### 2 4321-2, , 2776-10 ####[facility] LABORATORYCLIA [id number] [place] [id number] [place] Chloride [Moles/Vol] 105 mmol/L Normal 98-107 [facility] Comment on above: Order Comment: Speci men Type: BLOOD SPECIMENOrdering Facility: [facility] Address: [address] [place] [address] Performed By: #### 2 4321-2, , 2776-10 ####[facility] LABORATORYCLIA [id number] [place] [id number] [place] CO2 [Moles/Vol] 27 mmol/L Normal 21-32 [facility] Comment on above: Order Comment: Speci men Type: BLOOD SPECIMENOrdering Facility: [facility] Address: [address] [place] [id number] Performed By: #### 2 4321-2, , 2776-10 ####[facility] LABORATORYCLIA [id number] [place] [id number] [place] Creatinine [Mass/Vol] 1.05 mg/dL High 0.51-0.95 [facility] Comment on above: Order Comment: Speci men Type: BLOOD SPECIMENOrdering Facility: [facility] Address: [address] [place] [address] Result Comment: Livia ents receiving either N-Acetylcysteine (NAC) or Metamizole prior to venipuncture, may have falsely depressed results. Performed By: #### 2 4321-2, , 2776-10 ####[facility] LABORATORYCLIA [id number] [place] [id number] [facility] Creatinine and Glomerular filtration rate.predicted panel (S/P/Bld) 62 mL/min/1.73m??? Normal >=60 [facility] Comment on above: Order Comment: Speci men Type: BLOOD SPECIMENOrdering Facility: [facility] Address: [address] [place] [address] Result Comment: Jazmin mated Glomerular Filtration Rate (eGFR) is calculated using the 2020 CKD-EPI creatinine equation. This equation utilizes serum creatinine, sex, and age as parameters. The creatinine assay has traceable calibration to isotope dilution-mass spectrometry. Refer to KDIGO guidelines for clinical interpretation. In patients with unstable renal function, e.g. those with acute kidney injury, the eGFR may not accurately reflect actual GFR. Performed By: #### 2 4321-2, , 2776-10 ####[facility] LABORATORYCLIA [id number] [place] [id number] [place] Glucose [Mass/Vol] 157 mg/dL High 70-100 [facility] Comment on above: Order Comment: Speci men Type: BLOOD SPECIMENOrdering Facility: [facility] Address: [address] [place] [address] Result Comment: The [place] Diabetes Association (ADA) provides guidance for cutoff values for fasting glucose and random glucose. The ADA defines fasting as no caloric intake for at least 8 hours. Fasting plasma glucose results between 100 to 125 mg/dL indicate increased risk for diabetes (prediabetes). Fasting plasma glucose results greater than or equal to 126 mg/dL meet the criteria for diagnosis of diabetes. In the absence of unequivocal hyperglycemia, results should be confirmed by repeat testing. In a patient with classic symptoms of hyperglycemia or hyperglycemic crisis, random plasma glucose results greater than or equal to 200 mg/dL meet the criteria for diagnosis of diabetes. Reference: Standards of Medical Care in Diabetes 2016, [place] Diabetes Association. Diabetes Care. 2016.39(Suppl 1). Results may be falsely elevated after the administration of Sulfapyridine. Results may be falsely depressed after the administration of Sulfasalazine. Performed By: #### 2 4321-2, , 2776-10 ####[facility] LABORATORYCLIA [id number] [place] [address] [place] Potassium [Moles/Vol] 4.6 mmol/L Normal 3.5-5.1 [facility] Comment on above: Order Comment: Speci men Type: BLOOD SPECIMENOrdering Facility: [facility] Address: [address] [place] [address] Performed By: #### 2 4321-2, , 2776-10 ####[facility] LABORATORYCLIA [id number] [place] [address] [place] Sodium [Moles/Vol] 138 mmol/L Normal 136-145 [facility] Comment on above: Order Comment: Speci men Type: BLOOD SPECIMENOrdering Facility: [facility] Address: [address] [place] [address] Performed By: #### 2 4321-2, , 2776-10 ####[facility] LABORATORYCLIA [id number] [place] [id number] [place] Urea nitrogen [Mass/Vol] 20 mg/dL Normal 7-26 [facility] Comment on above: Order Comment: Speci men Type: BLOOD SPECIMENOrdering Facility: [facility] Address: [address] [place] [address] Performed By: #### 2 4321-2, 82274-4, 2777-1 ####[facility] LABORATORYCLIA [id number] [place] [id number] [facility] [place] CBC panel Auto (Bld)on 01-14 Erythrocyte distribution width (RBC) [Ratio] 13.6 % Normal 11.5-15.0 [facility] Comment on above: Order Comment: Speci men Type: BLOOD SPECIMENOrdering Facility: [facility] Address: [address] [place] [address] Performed By: #### 5 8410-2 ####[facility] LABORATORYCLIA [id number] [address] [place] Hematocrit (Bld) [Volume fraction] 37.1 % Normal 36.0-46.0 [facility] Comment on above: Order Comment: Speci men Type: BLOOD SPECIMENOrdering Facility: [facility] Address: [address] [place] [address] Performed By: #### 5 8410-2 ####[facility] LABORATORYCLIA [id number] [address] [place] Hemoglobin (Bld) [Mass/Vol] 12.1 g/dL Normal 11.5-15.5 [facility] Comment on above: Order Comment: Speci men Type: BLOOD SPECIMENOrdering Facility: [facility] Address: [address] [place] [address] Performed By: #### 5 8410-2 ####[facility] LABORATORYCLIA [id number] [place] [id number] [place] MCH (RBC) [Entitic mass] 29.9 pg Normal 26.0-34.0 [facility] Comment on above: Order Comment: Speci men Type: BLOOD SPECIMENOrdering Facility: [facility] Address: [address] [place] [address] Performed By: #### 5 8410-2 ####[facility] LABORATORYCLIA [id number] [place] [address] [place] MCHC (RBC) [Mass/Vol] 32.6 g/dL Normal 30.5-36.0 [facility] Comment on above: Order Comment: Speci men Type: BLOOD SPECIMENOrdering Facility: [facility] Address: [address] [place] [address] Performed By: #### 5 8410-2 ####[facility] LABORATORYCLIA [id number] [place] [address] [place] MCV (RBC) [Entitic vol] 91.6 fL Normal 80.0-100.0 [facility] Comment on above: Order Comment: Speci men Type: BLOOD SPECIMENOrdering Facility: [facility] Address: [address] [place] [address] Performed By: #### 5 8410-2 ####[facility] LABORATORYIA [id number] [place] [address] [place] Nucleated RBC (Bld) [#/Vol] 10*3/uL Normal <0.01 [facility] Comment on above: Order Comment: Speci men Type: BLOOD SPECIMENOrdering Facility: [facility] Address: [address] [place] [address] Performed By: #### 5 8410-2 ####[facility] LABORATORYIA [id number] [place] [address] [place] Platelet mean volume (Bld) [Entitic vol] 10.7 fL Normal 9.0-12.7 [facility] Comment on above: Order Comment: Speci men Type: BLOOD SPECIMENOrdering Facility: [facility] Address: [address] [place] [address] Performed By: #### 5 8410-2 ####[facility] LABORATORYIA [id number] [place] [address] [place] Platelets (Bld) [#/Vol] 121 10*3/uL Low 150-400 [facility] Comment on above: Order Comment: Speci men Type: BLOOD SPECIMENOrdering Facility: [facility] Address: [address] [id number] Result Comment: No c lot detected. Performed By: #### 5 8410-2 ####[facility] LABORATORYCLIA [id number] [place] [id number] [facility] RBC (Bld) [#/Vol] 4.05 10*6/uL Normal 3.90-5.20 [facility] Comment on above: Order Comment: Speci men Type: BLOOD SPECIMENOrdering Facility: [facility] Address: [address] [id number] Performed By: #### 5 8410-2 ####[facility] LABORATORYCLIA [id number] [place] [id number] [facility] WBC (Bld) [#/Vol] 7.35 10*3/uL Normal 3.70-11.00 [facility] Comment on above: Order Comment: Speci men Type: BLOOD SPECIMENOrdering Facility: [facility] Address: [address] [place], [place] [address] Performed By: #### 5 8410-2 ####[facility] LABORATORYCLIA [id number] [place] [id number] [facility] CONSULTon 01-14-2025 CONSULT HNO ID: [id number] Author: KIMI SUÁREZ MD Service: Vascular Surgery Author Type: Physician Type: Consults Filed: 01/14/2025 15:52 Note Text: VASCULAR SURGERY CONSULT SERVICE DATE: 01/14/2025 SERVICE TIME: 3:50 PM Subjective CHIEF COMPLAINT: Resistant hypertension HPI: Nadia Anglin is a 54 year old White female is being seen renal artery stenosis and resistant hypertension. Patient is being managed by nephrology and is maximized medication and still blood pressures running in the 200s. Had renal artery ultrasound that showed the right greater than 60% stenosis with PSV in the proximal at 338. Vascular surgery consulted for possible renal stenting PAST MEDICAL HISTORY: PAST MEDICAL HISTORY Diagnosis Date Asthma Current smoker Diabetes mellitus type 2, insulin dependent (HCC) Elevated BP Obesity Psoriasis Spinal stenosis PAST SURGICAL HISTORY: PAST SURGICAL HISTORY Procedure Laterality Date DELIVERY ONLY 1990, 1995 , low transverse TUBAL LIGATION, FAMILY HISTORY: FAMILY HISTORY Problem Relation Age of Onset Diabetes Mother Hypertension Mother Stroke Mother TIA's Heart Father @ 62 d/t IA Heart Maternal Grandfather Diabetes Maternal Grandfather Diabetes Sister @ 50 years, renal failure SOCIAL HISTORY: Social History Tobacco Use Smoking status: Every Day Current packs/day: 1.00 Average packs/day: 1 pack/day for 20.0 years (20.0 ttl pk-yrs) Types: Cigarettes Smokeless tobacco: Never Tobacco comments: 1/2 PPD Substance Use Topics Alcohol use: No Drug use: No MEDICATIONS: Prior to Admission Medications: insulin glargine (LANTUS SOLOSTAR U-100 INSULIN) 100 unit/mL (3 mL)Inject 15 Units subcutaneously daily at bedtime.Disp: Rfl: gabapentin (NEURONTIN) 300 mg capsuleTake 600 mg by mouth two times a day.Disp: Rfl: HYDROcodone-Acetaminoph en (NORCO) 7.5-325 mg per tabletTake 1 tablet by mouth every 6 hours as needed for pain.Disp: Rfl: metoprolol tartrate, short acting, (LOPRESSOR) 50 mg tabletTake 50 mg by mouth two times a day.Disp: Rfl: lisinopril 10 mg tabletTake 1 tablet by mouth once daily.Disp: 90 tabletRfl: 1 albuterol HFA (PROAIR HFA) 90 mcg/actuation INHALATION inhalerInhale 2 Puffs as instructed every 4 hours as needed.Disp: 1 InhalerRfl: 5 (Patient taking differently: Inhale 2 Puffs as instructed every 4 hours as needed for wheezing/shortness of breath.) Current Facility-Administered Medications Medication Dose Route Frequency NaCl 0.9% iv flush bag 20 mL INTRAVENOUS PRN heparin 5,000 Units injection 5,000 Units SUBCUTANEOUS q 12 H amLODIPine 10 mg tab(s) (NORVASC) 10 mg ORAL DAILY hydrALAZINE 20 mg tab(s) (APRESOLINE) 20 mg ORAL TID PRN lisinopril 40 mg tab(s) (ZESTRIL) 40 mg ORAL DAILY dextrose 40 % 15 g 15 g ORAL PRN Or glucagon 1 mg injection 1 mg INTRAMUSCULAR PRN Or dextrose 10% iv bolus 12.5 g INTRAVENOUS PRN insulin lispro injection (rapid acting) (ADMElog) SUBCUTANEOUS w MEALS insulin lispro injection (rapid acting) (ADMElog) SUBCUTANEOUS AT BEDTIME metoprolol tartrate (short acting) 50 mg tab(s) (LOPRESSOR) 50 mg ORAL BID insulin glargine 15 Units pen (long acting) 15 Units SUBCUTANEOUS AT BEDTIME gabapentin 600 mg cap(s) (NEURONTIN) 600 mg ORAL BID hydroCHLOROthiazide 25 mg tab(s) 25 mg ORAL DAILY HYDROcodone 5 mg - acetaminophen 325 mg tablet (NORCO) 1 tablet ORAL q 6 H PRN ondansetron (PF) 4 mg injection (ZOFRAN) 4 mg INTRAVENOUS q 6 H PRN hydrALAZINE 25 mg tab(s) (APRESOLINE) 25 mg ORAL q 8 H nicotine 21 mg/24 hr 1 Patch (NICODERM) 1 Patch TRANSDERMAL DAILY And [START ON 01/15/2025] nicotine -- REMOVE patch OTHER DAILY And nicotine - verify patch OTHER q 8 H nicotine polacrilex 2 mg gum (NICORETTE) 2 mg ORAL q 2 H PRN ALLERGIES: Codeine, Iv Contrast [Iodine], and Primatene Mist [Epinephrine Base] COMPLETE REVIEW OF SYSTEMS: All negative except for the HPI Objective PHYSICAL EXAM: Patient Vitals for the past 24 hrs: BP Temp Temp src Pulse Resp SpO2 01/14/25 1501 168/84 37.5 ?C (99.5 ?F) Oral 62 18 96 % 01/14/25 1322 190/105 -- -- -- -- -- 01/14/25 1132 (!) 204/97 -- -- -- -- -- 01/14/25 1130 (!) 201/93 -- -- -- -- -- 01/14/25 1102 186/100 36.8 ?C (98.3 ?F) Oral 63 18 97 % 01/14/25 0944 189/101 -- -- -- -- -- 01/14/25 0942 195/104 -- -- -- -- -- 01/14/25 0820 (!) 207/104 36.9 ?C (98.5 ?F) Oral 66 14 97 % 01/14/25 0343 152/84 36.5 ?C (97.7 ?F) Oral 62 20 94 % 01/13/25 2243 137/66 36.8 ?C (98.3 ?F) Oral 66 14 95 % 01/13/252048 163/76 -- -- (!) 59 -- 95 % 01/13/251945 167/85 37.2 ?C (98.9 ?F) Oral (!) 59 -- 95 % Patient awake, alert No apparent distress Afebrile vital signs stable HEENT: Normocephalic atraumatic Pupils equal Moist mucous membrane Neck supple Lungs reported clear Heart appears regular some abdomen soft Mild edema Moves all extremities well x 4 DATA: Bld Gluc mg/dL-Manual (more content not included)... Normal [facility] 01-14 Magnesium [Mass/Vol] 2.0 mg/dL Normal 1.6-2.6 [facility] Comment on above: Order Comment: Lacey coleman Type: BLOOD SPECIMENOrdering Facility: [facility] Address: [address] [place] [address] Performed By: #### 2 4321-2, , 2776-10 ####[facility] LABORATORYCLIA [id number] [place] [address] [place] [facility] Phosphate SerPl-ncon 01-14 Phosphate [Mass/Vol] 4.1 mg/dL Normal 2.5-4.9 [facility] Comment on above: Order Comment: Lacey coleman Type: BLOOD SPECIMENOrdering Facility: [facility] Address: [address] [place] [address] Result Comment: Elev ated m-protein (paraprotein) levels in the serum may be exhibited in patients with monoclonal gammopathies, causing falsely elevated inorganic phosphorus results. Performed By: #### 2 4321-2, , 2776-10 ####[facility] LABORATORYCLIA [id number] [place] [id number] [place] Basic metabolic 2000 panelon 01-13-2025 Anion gap [Moles/Vol] 7 mmol/L Normal 5-16 [facility] Comment on above: Order Comment: Lacey coleman Type: BLOOD SPECIMENOrdering Facility: [facility] Address: [address] [place] [address] Performed By: #### 2 432-2, , HSTROP ####[facility] LABORATORYCLIA [id number] [place] [id number] [place] Calcium [Mass/Vol] 8.6 mg/dL Normal 8.5-10.5 [facility] Comment on above: Order Comment: Speci men Type: BLOOD SPECIMENOrdering Facility: [facility] Address: [address] [place] [address] Performed By: #### 2 432-2, , HSTROP ####[facility] LABORATORYCLIA [id number] [place] [id number] [place] Chloride [Moles/Vol] 104 mmol/L Normal 98-107 [facility] Comment on above: Order Comment: Speci men Type: BLOOD SPECIMENOrdering Facility: [facility] Address: [address] [place] [address] Performed By: #### 2 2, , HSTROP ####[facility] LABORATORYCLIA [id number] [place] [id number] [place] CO2 [Moles/Vol] 24 mmol/L Normal 21-32 [facility] Comment on above: Order Comment: Speci men Type: BLOOD SPECIMENOrdering Facility: [facility] Address: [address] [place] [address] Performed By: #### 2 2, , HSTROP ####[facility] LABORATORYCLIA [id number] [place] [address] [place] Creatinine [Mass/Vol] 0.92 mg/dL Normal 0.51-0.95 [facility] Comment on above: Order Comment: Speci men Type: BLOOD SPECIMENOrdering Facility: [facility] Address: [address] [place] [address] Result Comment: Livia ents receiving either N-Acetylcysteine (NAC) or Metamizole prior to venipuncture, may have falsely depressed results. Performed By: #### 2 4320-2, , HSTROP ####[facility] LABORATORYCLIA [id number] [place] [address] [place] Creatinine and Glomerular filtration rate.predicted panel (S/P/Bld) 73 mL/min/1.73m??? Normal >=60 [facility] Comment on above: Order Comment: Maicoevaristo coleman Type: BLOOD SPECIMENOrdering Facility: [facility] Address: [address] [place] [address] Result Comment: Jazmin mated Glomerular Filtration Rate (eGFR) is calculated using the 2020 CKD-EPI creatinine equation. This equation utilizes serum creatinine, sex, and age as parameters. The creatinine assay has traceable calibration to isotope dilution-mass spectrometry. Refer to KDIGO guidelines for clinical interpretation. In patients with unstable renal function, e.g. those with acute kidney injury, the eGFR may not accurately reflect actual GFR. Performed By: #### 2 4321-2, 40380-1, HSTROP ####[facility] LABORATORYCLIA [id number] [place] [address] [place] Glucose [Mass/Vol] 181 mg/dL High 70-100 [facility] Comment on above: Order Comment: Lacey coleman Type: BLOOD SPECIMENOrdering Facility: [facility] Address: [address] [place] [address] Result Comment: The [place] Diabetes Association (ADA) provides guidance for cutoff values for fasting glucose and random glucose. The ADA defines fasting as no caloric intake for at least 8 hours. Fasting plasma glucose results between 100 to 125 mg/dL indicate increased risk for diabetes (prediabetes). Fasting plasma glucose results greater than or equal to 126 mg/dL meet the criteria for diagnosis of diabetes. In the absence of unequivocal hyperglycemia, results should be confirmed by repeat testing. In a patient with classic symptoms of hyperglycemia or hyperglycemic crisis, random plasma glucose results greater than or equal to 200 mg/dL meet the criteria for diagnosis of diabetes. Reference: Standards of Medical Care in Diabetes 2016, [place] Diabetes Association. Diabetes Care. 2016.39(Suppl 1). Results may be falsely elevated after the administration of Sulfapyridine. Results may be falsely depressed after the administration of Sulfasalazine. Performed By: #### 2 4321-2, 05384-6, HSTROP ####[facility] LABORATORYCLIA [id number] [place] [id number] [place] Potassium [Moles/Vol] 3.9 mmol/L Normal 3.5-5.1 [facility] Comment on above: Order Comment: Lacey coleman Type: BLOOD SPECIMENOrdering Facility: [facility] Address: [address] [place] [address] Performed By: #### 2 4321-2, 77563-7, HSTROP ####[facility] LABORATORYCLIA [id number] [place] [id number] [place] Sodium [Moles/Vol] 135 mmol/L Low 136-145 [facility] Comment on above: Order Comment: Lacey coleman Type: BLOOD SPECIMENOrdering Facility: [facility] Address: [address] [place] [address] Performed By: #### 2 4321-2, , HSTROP ####[facility] LABORATORYCLIA [id number] [place] [id number] [place] Urea nitrogen [Mass/Vol] 21 mg/dL Normal 7-26 [facility] Comment on above: Order Comment: Maicoi virginia Type: BLOOD SPECIMENOrdering Facility: [facility] Address: [address] [place] [address] Performed By: #### 2 4321-2, , HSTROP ####[facility] LABORATORYCLIA [id number] [place] [id number] [facility] [place] CONSULTon 01-13-2025 CONSULT HNO ID: [id number] Author: ONEL HARRELL MD Service: Nephrology Author Type: Physician Type: Consults Filed: 01/13/2025 15:30 Note Text: NEPHROLOGY SERVICE CONSULT NOTE SERVICE DATE: 01/13/2025 SERVICE TIME: 3:25 PM REASON FOR CONSULT: I am asked to see this patient in consultation for my opinion regarding HTN. My recommendations will be communicated by way of shared medical record. REQUESTING PHYSICIAN: Primary team PRIMARY CARE PHYSICIAN: Clifford Sarmiento DO Subjective CHIEF COMPLAINT: Uncontrolled HTN HPI: We are consulted on this patient for hypertensive urgency. She has preserved kidney function at baseline. Says that she has been taking lisinopril for years but recently blood pressure was going up. Metoprolol was added as an outpatient. Blood pressure still remains high. She came to the ER. Over here her blood pressure was 248/140. Patient denies any recent acute illnesses, extra supplements, NSAID use. She has tried to lose weight, reports 100 pounds weight loss over the last year or so. Other comorbidities include hypertension, type 2 diabetes mellitus, asthma, tobacco use. She was admitted for treatment of hypertension. Amlodipine was added to her regimen. She is also on hydrochlorothiazide, lisinopril, metoprolol. At the time of assessment, blood pressure had improved to 138/58. She is asymptomatic. Renal artery Doppler was done that showed 60 to 99% stenosis in the right renal artery, left renal artery 0 to 59% stenosis. As mentioned earlier labs are satisfactory. No evidence of kidney impairment. PAST MEDICAL HISTORY Diagnosis Date Asthma Current smoker Diabetes mellitus type 2, insulin dependent (HCC) Elevated BP Obesity Psoriasis Spinal stenosis PAST SURGICAL HISTORY Procedure Laterality Date DELIVERY ONLY 1990, 1995 , low transverse TUBAL LIGATION, FAMILY HISTORY Problem Relation Age of Onset Diabetes Mother Hypertension Mother Stroke Mother TIA's Heart Father @ 62 d/t IA Heart Maternal Grandfather Diabetes Maternal Grandfather Diabetes Sister @ 50 years, renal failure Social History Tobacco Use Smoking status: Every Day Current packs/day: 1.00 Average packs/day: 1 pack/day for 20.0 years (20.0 ttl pk-yrs) Types: Cigarettes Smokeless tobacco: Never Tobacco comments: 10/21 PPD Substance Use Topics Alcohol use: No Drug use: No MEDICATIONS: Prior to Admission Medications insulin glargine (LANTUS SOLOSTAR U-100 INSULIN) 100 unit/mL (3 mL), Inject 15 Units subcutaneously daily at bedtime., Disp: , Rfl: , 01/10/2025 gabapentin (NEURONTIN) 300 mg capsule, Take 600 mg by mouth two times a day., Disp: , Rfl: , 01/11/2025 HYDROcodone-Acetaminoph en (NORCO) 7.5-325 mg per tablet, Take 1 tablet by mouth every 6 hours as needed for pain., Disp: , Rfl: , Taking As Needed metoprolol tartrate, short acting, (LOPRESSOR) 50 mg tablet, Take 50 mg by mouth two times a day., Disp: , Rfl: , 01/11/2025 lisinopril 10 mg tablet, Take 1 tablet by mouth once daily., Disp: 90 tablet, Rfl: 1, 01/11/2025 albuterol HFA (PROAIR HFA) 90 mcg/actuation INHALATION inhaler, Inhale 2 Puffs as instructed every 4 hours as needed. (Patient taking differently: Inhale 2 Puffs as instructed every 4 hours as needed for wheezing/shortness of breath.), Disp: 1 Inhaler, Rfl: 5, Taking Differently Current Facility-Administered Medications Medication Dose Route Frequency NaCl 0.9% iv flush bag 20 mL INTRAVENOUS PRN heparin 5,000 Units injection 5,000 Units SUBCUTANEOUS q 12 H amLODIPine 10 mg tab(s) (NORVASC) 10 mg ORAL DAILY hydrALAZINE 20 mg tab(s) (APRESOLINE) 20 mg ORAL TID PRN lisinopril 40 mg tab(s) (ZESTRIL) 40 mg ORAL DAILY dextrose 40 % 15 g 15 g ORAL PRN Or glucagon 1 mg injection 1 mg INTRAMUSCULAR PRN Or dextrose 10% iv bolus 12.5 g INTRAVENOUS PRN insulin lispro injection (rapid acting) (ADMElog) SUBCUTANEOUS w MEALS insulin lispro injection (rapid acting) (ADMElog) SUBCUTANEOUS AT BEDTIME metoprolol tartrate (short acting) 50 mg tab(s) (LOPRESSOR) 50 mg ORAL BID insulin glargine 15 Units pen (long acting) 15 Units SUBCUTANEOUS AT BEDTIME gabapentin 600 mg cap(s) (NEURONTIN) 600 mg ORAL BID hydroCHLOROthiazide 25 mg tab(s) 25 mg ORAL DAILY HYDROcodone 5 mg - acetaminophen 325 mg tablet (NORCO) 1 tablet ORAL q 6 H PRN ondansetron (PF) 4 mg injection (ZOFRAN) 4 mg INTRAVENOUS q 6 H PRN ALLERGIES Allergen Reactions Codeine Intolerance Iv Contrast [Iodine] Vomiting Primatene Mist [Epi* Vomiting REVIEW OF SYSTEMS: 12 point review of system done negative except for as mentioned above. Objective PHYSICAL EXAM: BP 164/77 Pulse 61 Temp 36.8 ?C (98.2 ?F) (Oral) Resp 14 Ht 172.7 cm (5' 8) Wt 114.3 kg (252 lb) LMP 10/21/2011 SpO2 96% BMI 38.32 kg/m? Intake/Output Summary (Last 24 hours) at 01/13/2025 1525 Last data filed at 01/13/2025 1254 Vonnie (more content not included)... Normal [facility] ECG COMPLETEon 01-13-2025 ECG COMPLETE Ventricular Rate : 5 8 BPM Atrial Rate : 58 BPM P-R Interval : 162 ms QRS Duration : 92 ms Q-T Interval : 484 ms QTC Calculation(Bazett) : 475 ms Calculated P Bogart : 55 degrees Calculated R Bogart : 52 degrees Calculated T Bogart : -12 degrees Sinus bradycardia Abnormal QRS-T angle, consider primary T wave abnormality Abnormal ECG When compared with ECG of 11-Jan-2025 11:01, No significant change was found Confirmed by PEREZ VALENCIA MD ([id number]) on 01/14/2025 8:16:44 AM NAME : NADIA ANGLIN PID : [id number] : 1970 Gender : Female Race : ORD : [id number] Procedure Date : Jan 13 2025 01:51:52 Edit Date : Jan 14 2025 08:16:47 Diagnosis: Sinus bradycardia Abnormal QRS-T angle, consider primary T wave abnormality Abnormal ECG When compared with ECG of 11-Jan-2025 11:01, No significant change was found Confirmed by PEREZ VALENCIA MD ([id number]) on 01/14/2025 8:16:44 AM Test Reason : STAT Location : [address] [place] [address] Overread By : PEREZ VALENCIA MD Edited By : PEREZ VALENCIA MD Referred By : , Acquired by : System,System Normal [facility] HIGH SENSITIVITY TROPONIN Io n 01-13-2025 Tropinin I.cardiac panel High sensitivity method 3.9 pg/mL Normal 0.0-34.0 [facility] Comment on above: Order Comment: Speci men Type: BLOOD SPECIMENOrdering Facility: [facility] Address: [address] [place] [address] [place] [address] Performed By: #### 2 4321-2, 64269-0, HSTROP ####[facility] LABORATORYCLIA [id number] [place] [address] [place] HbA1c (Bld)on 01-13-2025 Average glucose Estimated from glycated hemoglobin (Bld) [Mass/Vol] 194 mg/dL Normal [facility] Comment on above: Order Comment: Lacey coleman Type: BLOOD SPECIMENOrdering Facility: [facility] Address: [address] [place] [address] Result Comment: eAG: (Estimated average glucose) is a calculated value from HgbA1c and is international representative of the average blood glucose level in the last 2-3 month period. Performed By: #### 5 5454-3 ####[facility] LABCLIA [id number] [place] [address] [place] HbA1c (Bld) [Mass fraction] 8.4 % High 4.3-5.6 [facility] Comment on above: Order Comment: Lacey coleman Type: BLOOD SPECIMENOrdering Facility: [facility] Address: [address] [place] [address] Result Comment: [place] Diabetes Association guidelines indicate that patients with HgbA1c in the range 5.7-6.4% are at increased risk for development of diabetes, and intervention by lifestyle modification may be beneficial. HgbA1c greater or equal to 6.5% is considered diagnostic of diabetes. Performed By: #### 5 5454-3 ####[facility] LABCLIA [id number] [place] [address] [place] Magnesium SerPl-mCncon 01-13 Magnesium [Mass/Vol] 1.7 mg/dL Normal 1.6-2.6 [facility] Comment on above: Order Comment: Lacey virginia Type: BLOOD SPECIMENOrdering Facility: [facility] Address: [address] [place] [address] Performed By: #### 2 4321-2, 97591-2, HSTROP ####[facility] LABORATORYCLIA [id number] [place] [address] [place] [facility] Non-Invasive Vascular Laboratory [facility] Renal or Mesenteric Duplex Bilateral/Complete Date of service/time: 01/13/2025 7:19:28 AM Name: NADIA ANGLIN Date of : 1970 Age: 54 years Gender: F Clinical Indication Hypertension not responding to medical management. TECHNIQUE -------- A visceral duplex ultrasound examination was performed, including grayscale imaging and color Doppler and spectral Doppler examination of the below mentioned arteries and veins. FINDINGS -------- Aorta proximal PSV: 86 cm/s. EDV: 19 cm/s. 2.73 cm x 2.52 cm Right renal artery origin PSV: 211 cm/s. EDV: 26 cm/s. Right renal artery proximal PSV: 338 cm/s. EDV: 129 cm/s. Right renal artery mid PSV: 82 cm/s. EDV: 24 cm/s. Right renal artery distal PSV: 128 cm/s. EDV: 40 cm/s. Right renal artery to aortic ratio (RAR): 3.9 Right kidney: Size: 12.0 cm. Right parenchyma resistive index and acceleration time Upper pole RI: 0.61 Mid pole RI: 0.62 Lower pole RI: 0.37 Right renal vein patent. Left renal artery origin PSV: 79 cm/s. EDV: 19 cm/s. Left renal artery proximal PSV: 152 cm/s. EDV: 25 cm/s. Left renal artery mid PSV: 110 cm/s. EDV: 21 cm/s. Left renal artery distal PSV: 179 cm/s. EDV: 24 cm/s. Left renal artery to aortic ratio (RAR): 2.1 Left kidney: Size: 10.6 cm. Left parenchyma resistive index and acceleration time Upper pole RI: 0.71 Mid pole RI: 0.67 Lower pole RI: 0.65 Left renal vein patent. IMPRESSION RIGHT RENAL Right renal artery: 60-99% stenosis. LEFT RENAL Left renal artery: 0-59% stenosis. No evidence of hemodynamically significant stenosis. Technologist: Paulie Gao Ordering physician: LOURDES ALBERTO Interpreting physician: Kimi Suárez MD Final CC [employer] [facility] Image : [id number] ISUID See Link below for Image Normal [facility] T3Free SerPl-mCncon 01-13-20 25 Free T3 [Mass/Vol] 3.7 pg/mL Normal 2.2-4.0 [facility] Comment on above: Order Comment: Speci men Type: BLOOD SPECIMENOrdering Facility: [facility] Address: [address] [place] [address] Performed By: #### 3 051-0, 3024-7, 3015-3 ####[facility]ATORYCLIA [id number] [address] T4 Free SerPl-mCncon 025 Free T4 [Mass/Vol] 1.1 ng/dL Normal 0.8-1.5 [facility] Comment on above: Order Comment: Speci men Type: BLOOD SPECIMENOrdering Facility: [facility] Address: [address] [place] [address] Performed By: #### 3 051-0, 3024-7, 3015-3 ####[facility]ATORYCLIA [id number] [address] [place] TSH SerPl-aCncon 01-12-2025 TSH Qn 0.279 m[IU]/L Low 0.358-3.740 [facility] Comment on above: Order Comment: Speci men Type: BLOOD SPECIMENOrdering Facility: [facility] Address: [address] [place] [address] Result Comment: 3rd generation ultra sensitive TSH. Performed By: #### 3 051-0, 3024-7, 6-3 ####[facility]ATORYCLIA [id number] [place] [address] [place] ALLIED HEALTHon 01-11-2025 ALLIED HEALTH HNO ID: [id number] Author: TIMA BATEMAN RT(R) Service: Radiology Author Type: Technologist Type: Allied Health Filed: 01/11/2025 11:40 Note Text: Radiology Service Progress Note PATIENT NAME: Nadia Anglin DATE OF SERVICE: January 11, 2025 TIME: 11:40 AM PATIENT IDENTITY VERIFICATION COMPLETED USING TWO (2) IDENTIFIERS: Name and Date of confirmed by patient verbally. FALL SCREENING: Has the patient had 2 falls in the last year or 1 fall with injury or currently using an Ambulatory Assistive Device (Walker, Cane, Wheelchair, Crutches, etc.)? Emergency Room Patient: Screened in ED PATIENT GENDER DATA: Assigned female at . status: : No status: N/A PATIENT RELEVANT IMPLANT DATA REVIEWED: Not Applicable PATIENT PRESENTS WITH AN IMPLANTABLE OR ATTACHED CERTIFIED MEDICAL AIDE: No RADIOLOGY DEPARTMENT: General X-ray: Exam(s) Completed: Chest X-Ray PERIPHERAL IV DATA: Not applicable SIGNED BY: RT Daren(R) January 11, 2025 11:40 AM [facility] HNO ID: [id number] Author: DAXA HOUSE Tech Service: Radiology Author Type: Technologist Type: Allied Health Filed: 01/11/2025 11:20 Note Text: Summary: ct Radiology Service Progress Note PATIENT NAME: Nadia Anglin DATE OF SERVICE: January 11, 2025 TIME: 11:20 AM PATIENT IDENTITY VERIFICATION COMPLETED USING TWO (2) IDENTIFIERS: Name and Date of confirmed by patient verbally. FALL SCREENING: Has the patient had 2 falls in the last year or 1 fall with injury or currently using an Ambulatory Assistive Device (Walker, Cane, Wheelchair, Crutches, etc.)? No PATIENT GENDER DATA: female PATIENT RELEVANT IMPLANT DATA REVIEWED: Not Applicable PATIENT PRESENTS WITH AN IMPLANTABLE OR ATTACHED CERTIFIED MEDICAL AIDE: No RADIOLOGY DEPARTMENT: CT; Exam(s) Completed: Brain PERIPHERAL IV DATA: Not applicable SIGNED BY: Tulio Sharif January 11, 2025 11:[address] [facility] CBC W Auto Differential pane l (Bld)on 01-11-2025 Basophils (Bld) [#/Vol] 0.06 10*3/uL Normal <0.11 [facility] Comment on above: Order Comment: Speci men Type: BLOOD SPECIMEN [facility] Address: [address] [place] [address] Performed By: #### 5 7021-8 #### [facility] CLIA [id number] [address] [place] [address] [place] Basophils/100 WBC (Bld) 0.7 % Normal [facility] Comment on above: Order Comment: Speci men Type: BLOOD SPECIMEN [facility] Address: [address] [place] [address] Performed By: #### 5 7021-8 #### [facility] CLIA [id number] [address] [place] [address] [place] Eosinophils (Bld) [#/Vol] 0.27 10*3/uL Normal <0.46 [facility] Comment on above: Order Comment: Speci men Type: BLOOD SPECIMEN [facility] Address: [address] [place] [address] Performed By: #### 5 7021-8 #### [facility] CLIA [id number] [address] [place] [address] [place] Eosinophils/100 WBC (Bld) 3.1 % Normal [facility] Comment on above: Order Comment: Speci men Type: BLOOD SPECIMEN [facility] Address: [address] [place] [address] Performed By: #### 5 7021-8 #### [facility] CLIA [id number] [address] [place] [address] [place] Erythrocyte distribution width (RBC) [Ratio] 13.4 % Normal 11.5-15.0 [facility] Comment on above: Order Comment: Speci men Type: BLOOD SPECIMEN [facility] Address: [address] [place] [address] Performed By: #### 5 7021-8 #### [facility] CLIA [id number] [address] [place] [address] [place] Hematocrit (Bld) [Volume fraction] 39.7 % Normal 36.0-46.0 [facility] Comment on above: Order Comment: Speci men Type: BLOOD SPECIMEN [facility] Address: [address] [place] [address] Performed By: #### 5 7021-8 #### [facility] CLIA [id number] [address] [place] [address] [place] Hemoglobin (Bld) [Mass/Vol] 13.4 g/dL Normal 11.5-15.5 [facility] Comment on above: Order Comment: Speci men Type: BLOOD SPECIMEN [facility] Address: [address] [place] [address] Performed By: #### 5 7021-8 #### [facility] CLIA [id number] [address] [place] [address] [place] Immature granulocytes (Bld) [#/Vol] 0.03 10*3/uL Normal <0.10 [facility] Comment on above: Order Comment: Speci men Type: BLOOD SPECIMEN [facility] Address: [facility] [place] [address] Performed By: #### 5 7021-8 #### [facility] CLIA [id number] [address] [place] [address] [place] Immature granulocytes/100 WBC (Bld) 0.3 % Normal [facility] Comment on above: Order Comment: Speci men Type: BLOOD SPECIMEN [facility] Address: [address] [place] [address] Performed By: #### 5 7021-8 #### [facility] CLIA [id number] [address] [place] [address] [place] Lymphocytes (Bld) [#/Vol] 2.70 10*3/uL Normal 1.00-4.00 [facility] Comment on above: Order Comment: Speci men Type: BLOOD SPECIMEN [facility] Address: [address] [place] [address] Performed By: #### 5 7021-8 #### [facility] CLIA [id number] [address] [place] [address] [place] Lymphocytes/100 WBC (Bld) 31.4 % Normal [facility] Comment on above: Order Comment: Speci men Type: BLOOD SPECIMEN [facility] Address: [address] [place] [address] Performed By: #### 5 7021-8 #### [facility] CLIA [id number] [address] [place] [address] [place] MCH (RBC) [Entitic mass] 29.8 pg Normal 26.0-34.0 [facility] Comment on above: Order Comment: Speci men Type: BLOOD SPECIMEN [facility] Address: [address] [place] [address] Performed By: #### 5 7021-8 #### [facility] CLIA [id number] [address] [place] [address] [place] MCHC (RBC) [Mass/Vol] 33.8 g/dL Normal 30.5-36.0 [facility] Comment on above: Order Comment: Speci men Type: BLOOD SPECIMEN [facility] Address: [address] [place] [address] Performed By: #### 5 7021-8 #### [facility] CLIA [id number] [address] [place] [address] [place] MCV (RBC) [Entitic vol] 88.2 fL Normal 80.0-100.0 [facility] Comment on above: Order Comment: Speci men Type: BLOOD SPECIMEN [facility] Address: [address] [place] [address] Performed By: #### 5 7021-8 #### [facility] CLIA [id number] [address] [place] [address] [place] Monocytes (Bld) [#/Vol] 0.62 10*3/uL Normal <0.87 [facility] Comment on above: Order Comment: Speci men Type: BLOOD SPECIMEN [facility] Address: [address] [place] [address] Performed By: #### 5 7021-8 #### [facility] CLIA [id number] [address] [place] [address] [place] Monocytes/100 WBC (Bld) 7.2 % Normal [facility] Comment on above: Order Comment: Speci men Type: BLOOD SPECIMEN [facility] Address: [address] [place] [address] Performed By: #### 5 7021-8 #### [facility] CLIA [id number] [address] [place] [address] [place] Neutrophils (Bld) [#/Vol] 4.93 10*3/uL Normal 1.45-7.50 [facility] Comment on above: Order Comment: Speci men Type: BLOOD SPECIMEN [facility] Address: [address] [place] [address] Performed By: #### 5 7021-8 #### [facility] CLIA [id number] [address] [place] [address] [place] Neutrophils/100 WBC (Bld) 57.3 % Normal [facility] Comment on above: Order Comment: Speci men Type: BLOOD SPECIMEN [facility] Address: [address] [place] [address] Performed By: #### 5 7021-8 #### [facility] CLIA [id number] [address] [place] [address] [place] Platelet mean volume (Bld) [Entitic vol] 10.7 fL Normal 9.0-12.7 [facility] Comment on above: Order Comment: Speci men Type: BLOOD SPECIMEN [facility] Address: [address] [place] [address] Performed By: #### 5 7021-8 #### [facility] CLIA [id number] [address] [place] [address] [place] Platelets (Bld) [#/Vol] 134 10*3/uL Low 150-400 [facility] Comment on above: Order Comment: Speci men Type: BLOOD SPECIMEN [facility] Address: [address] [place] [address] Result Comment: No c lot detected. Performed By: #### 5 7021-8 #### [facility] CLIA [id number] [address] [place] [address] [place] RBC (Bld) [#/Vol] 4.50 10*6/uL Normal 3.90-5.20 [facility] Comment on above: Order Comment: Speci men Type: BLOOD SPECIMEN [facility] Address: [address] [place] [address] Performed By: #### 5 7021-8 #### [facility] CLIA [id number] [address] [place] [address] [place] WBC (Bld) [#/Vol] 8.61 10*3/uL Normal 3.70-11.00 [facility] Comment on above: Order Comment: Speci men Type: BLOOD SPECIMEN [facility] Address: [address] [place] [address] Performed By: #### 5 7021-8 #### [facility] CLIA [id number] [address] [place] [address] [place] [address] BRAIN WO IVCONon 01-12-20 CT BRAIN WO IVCON * * *Final Report* * * DATE OF EXAM: Jan 11 2025 11:23AM [facility] 0504 - CT BRAIN WO IVCON / PROCEDURE REASON: Headache, chronic, no new features * * * * Physician Interpretation * * * * EXAMINATION: CT BRAIN WO IVCON CLINICAL HISTORY: Headache hypertension TECHNIQUE: Serial axial images without IV contrast were obtained from the vertex to the foramen magnum. MQ: CTBWO_3 CT Radiation dose: Integrated Dose-Length Product (DLP) for this visit = 770.97 mGy*cm CT Dose Reduction Employed: Iterative recon COMPARISON: None. RESULT: Post-operative change: None. Acute change: No evidence of an acute infarct or other acute parenchymal process. Hemorrhage: No evidence of acute intracranial hemorrhage. ECASS hemorrhagic transformation score: Not Applicable Mass Lesion / Mass Effect: There is no evidence of an intracranial mass or extraaxial fluid collection. No significant mass effect. Chronic change: None apparent. Parenchyma: There is no significant volume loss. The brain parenchyma is otherwise within normal limits for age. Ventricles: The ventricles are within normal limits of size and configuration for age. Paranasal sinuses and skull base: The visualized paranasal sinuses are grossly clear. The skull base and imaged soft tissues are unremarkable. Localizer images: No additional finding IMPRESSION: No acute abnormality Senior Economist: RAYMON Transcribe Date/Time: Jan 11 2025 11:30A Dictated by : CLIFFORD LOVE MD This examination was interpreted and the report reviewed and electronically signed by: CLIFFORD LOVE MD on Jan 11 2025 11:31AM EST [id number] Normal [facility] Comprehensive metabolic 2000 panelon 01-11-2025 Albumin [Mass/Vol] 3.0 g/dL Low 3.2-5.0 [facility] Comment on above: Order Comment: Speci men Type: BLOOD SPECIMEN [facility] Address: [address] [place] [address] Performed By: #### 2 4323-8, 98105-2, [id number] #### [facility] CLIA [id number] [facility] [place] [address] [place] ALP [Catalytic activity/Vol] 92 U/L Normal 45-117 [facility] Comment on above: Order Comment: Speci men Type: BLOOD SPECIMEN [facility] Address: [address] [place] [address] Performed By: #### 2 4323-8, , [id number] #### [facility] CLIA [id number] [address] [place] [address] [place] ALT [Catalytic activity/Vol] 13 U/L Normal 13-61 [facility] Comment on above: Order Comment: Speci men Type: BLOOD SPECIMEN [facility] Address: [address] [place] [address] Result Comment: Resu lts may be falsely depressed after the administration of Sulfasalazine and/or Sulfapyridine. Performed By: #### 2 4323-8, , [id number] #### [facility] CLIA [id number] [address] [place], [place] [address] [place] Anion gap [Moles/Vol] 6 mmol/L Normal 5-16 [facility] Comment on above: Order Comment: Speci men Type: BLOOD SPECIMEN [facility] Address: [address] [place] [address] Performed By: #### 2 4323-8, , [id number] #### [facility] CLIA [id number] [address] [place] [address] [place] AST [Catalytic activity/Vol] 24 U/L Normal 8-34 [facility] Comment on above: Order Comment: Speci men Type: BLOOD SPECIMEN [facility] Address: [address] [place], [place] [address] Result Comment: Resu lts may be falsely depressed after the administration of Sulfasalazine and/or Sulfapyridine. Performed By: #### 2 4323-8, , [id number] #### [facility] CLIA [id number] [address] [place] [address] [place] Bilirubin [Mass/Vol] 0.8 mg/dL Normal 0.2-1.0 [facility] Comment on above: Order Comment: Speci men Type: BLOOD SPECIMEN [facility] Address: [address] [place] [address] Performed By: #### 2 4323-8, , [id number] #### [facility] CLIA [id number] [address] [place], [place] [address] [place] Calcium [Mass/Vol] 9.4 mg/dL Normal 8.5-10.5 [facility] Comment on above: Order Comment: Speci men Type: BLOOD SPECIMEN [facility] Address: [address] [place] [address] Performed By: #### 2 4323-8, , [id number] #### [facility] CLIA [id number] [address] [place] [address] [place] Chloride [Moles/Vol] 107 mmol/L Normal 98-107 [facility] Comment on above: Order Comment: Speci men Type: BLOOD SPECIMEN [facility] Address: [address] [place] [address] Performed By: #### 2 4323-8, , [id number] #### [facility] CLIA [id number] [address] [place], [place] [address] [place] CO2 [Moles/Vol] 26 mmol/L Normal 21-32 [facility] Comment on above: Order Comment: Speci men Type: BLOOD SPECIMEN [facility] Address: [address] [place] [address] Performed By: #### 2 4323-8, , [id number] #### [facility] CLIA [id number] [address] [place], [place] [address] [place] Creatinine [Mass/Vol] 0.85 mg/dL Normal 0.51-0.95 [facility] Comment on above: Order Comment: Speci men Type: BLOOD SPECIMEN [facility] Address: [address] [place] [address] Result Comment: Livia ents receiving either N-Acetylcysteine (NAC) or Metamizole prior to venipuncture, may have falsely depressed results. Performed By: #### 2 4323-8, 08269-8, [id number] #### [facility] CLIA [id number] [address] [place] [address] [place] Creatinine and Glomerular filtration rate.predicted panel (S/P/Bld) 81 mL/min/1.73m??? Normal >=60 [facility] Comment on above: Order Comment: Lacey coleman Type: BLOOD SPECIMEN [facility] Address: [address] [place] [address] Result Comment: Jazmin mated Glomerular Filtration Rate (eGFR) is calculated using the 2020 CKD-EPI creatinine equation. This equation utilizes serum creatinine, sex, and age as parameters. The creatinine assay has traceable calibration to isotope dilution-mass spectrometry. Refer to KDIGO guidelines for clinical interpretation. In patients with unstable renal function, e.g. those with acute kidney injury, the eGFR may not accurately reflect actual GFR. Performed By: #### 2 4323-8, 10974-8, [id number] #### [facility] CLIA [id number] [address] [place] [address] [place] Glucose [Mass/Vol] 125 mg/dL High 70-100 [facility] Comment on above: Order Comment: Lacey coleman Type: BLOOD SPECIMEN [facility] Address: [address] [place] [address] Result Comment: The [place] Diabetes Association (ADA) provides guidance for cutoff values for fasting glucose and random glucose. The ADA defines fasting as no caloric intake for at least 8 hours. Fasting plasma glucose results between 100 to 125 mg/dL indicate increased risk for diabetes (prediabetes). Fasting plasma glucose results greater than or equal to 126 mg/dL meet the criteria for diagnosis of diabetes. In the absence of unequivocal hyperglycemia, results should be confirmed by repeat testing. In a patient with classic symptoms of hyperglycemia or hyperglycemic crisis, random plasma glucose results greater than or equal to 200 mg/dL meet the criteria for diagnosis of diabetes. Reference: Standards of Medical Care in Diabetes 2016, [place] Diabetes Association. Diabetes Care. 2016.39(Suppl 1). Results may be falsely elevated after the administration of Sulfapyridine. Results may be falsely depressed after the administration of Sulfasalazine. Performed By: #### 2 4323-8, , [id number] #### [facility] CLIA [id number] [address] [place], [place] [address] [place] Potassium [Moles/Vol] 4.4 mmol/L Normal 3.5-5.1 [facility] Comment on above: Order Comment: Speci men Type: BLOOD SPECIMEN [facility] Address: [address] [place] [address] Performed By: #### 2 4323-8, , [id number] #### [facility] CLIA [id number] [address] [place] [address] [place] Protein [Mass/Vol] 7.4 g/dL Normal 6.0-8.5 [facility] Comment on above: Order Comment: Speci men Type: BLOOD SPECIMEN [facility] Address: [address] [place] [address] Performed By: #### 2 4323-8, , [id number] #### [facility] CLIA [id number] [address] [place] [address] [place] Sodium [Moles/Vol] 139 mmol/L Normal 136-145 [facility] Comment on above: Order Comment: Speci men Type: BLOOD SPECIMEN [facility] Address: [address] [place] [address] Performed By: #### 2 4323-8, , [id number] #### [facility] CLIA [id number] [address] [place], [place] [address] [place] Urea nitrogen [Mass/Vol] 15 mg/dL Normal 7-26 [facility] Comment on above: Order Comment: Speci men Type: BLOOD SPECIMEN [facility] Address: [address] [place] [address] Performed By: #### 2 4323-8, , [id number] #### [facility] CLIA [id number] [address] [place] [address] [place] D dimer FEU PPP-mCncon 01-11 Fibrin D-dimer FEU (PPP) [Mass/Vol] 480 ng/mL FEU Normal <500 [facility] Comment on above: Order Comment: Speci men Type: BLOOD SPECIMENOrdering Facility: [facility] Address: [address] [place] [address] Performed By: #### 4 8065-7 ####[facility] [id number] [place] [address] [place] ECG COMPLETEon 01-11-2025 ECG COMPLETE Ventricular Rate : 6 6 BPM Atrial Rate : 66 BPM P-R Interval : 158 ms QRS Duration : 90 ms Q-T Interval : 416 ms QTC Calculation(Bazett) : 436 ms Calculated P Bogart : 46 degrees Calculated R Bogart : 65 degrees Calculated T Bogart : 45 degrees Normal sinus rhythm Normal ECG No previous ECGs available Confirmed by NIDA ADAM MD ([id number]) on 01/15/2025 12:55:24 PM NAME : NADIA ANGLIN PID : [id number] : 1970 Gender : Female Race : ORD : [id number] Procedure Date : Jan 11 2025 11:01:25 Edit Date : Jan 15 2025 12:55:25 Diagnosis: Normal sinus rhythm Normal ECG No previous ECGs available Confirmed by NIDA ADAM MD ([id number]) on 01/15/2025 12:55:24 PM Test Reason : STAT Location : 0 : ED Overread By : NIDA ADAM MD Edited By : NIDA ADAM MD Referred By : , Acquired by : [id number], [facility] ED NOTEon 01-11-2025 ED NOTE HNO ID: [id number] Author: ORLANDO LYLES RN Service: Emergency Medicine Author Type: Registered Nurse Type: ED Notes Filed: 01/11/2025 16:31 Note Text: Pt declined to stay in gown, changed back into her own clothing. [facility] ED NOTE HNO ID: [id number] Author: SUHAIL ALBERTO, ROC Service: ? Author Type: Registered Nurse Type: ED Notes Filed: 01/11/2025 12:10 Note Text: Bed: 04-ED Expected date: Expected time: Means of arrival: Comments: [facility] ED NOTE HNO ID: [id number] Author: SUHAIL ALBERTO RN Service: Emergency Medicine Author Type: Registered Nurse Type: ED Notes Filed: 01/11/2025 12:03 Note Text: Pt states her chest pain is getting worse [facility] ED PROV NOTEon 01-11-2025 ED PROV NOTE HNO ID: [id number] Author: AISHA CULVER MD Service: ? Author Type: Physician Type: ED Provider Notes Filed: 01/11/2025 15:18 Note Text: ED Provider Note Patient Name: Nadia Anglin : 1970 SERVICE DATE: 01/11/25 CHIEF COMPLAINT Elevated blood pressure HISTORY Nadia Anglin is a 54 year old female with PMH per EMR including diabetes, hypertension, asthma, tobacco use, presents concern for elevated blood pressure. Patient reports she has had poorly controlled blood pressure and headaches ongoing for the last 3 months, describes achy discomfort in the bifrontal bioccipital distribution, worse over the last week, denies exertional component, denies visual change, slurred speech, numbness or weakness throughout the arms or legs, neck stiffness, or fainting, she reports she was seen several days ago at outside emergency department, found to be hypertensive, treated with metoprolol and discharged, reports blood pressure was persistently high, she discussed with PCP who increased her metoprolol dose without improvement, she reports she has been having ongoing chest pain intermittently for the last week, today describes sharp pain in the midsternal region nonradiating, denies diaphoresis, shortness of breath, abdominal pain or back pain, denies tearing or ripping discomfort, reports headache is generally unchanged at this time, denies other additional symptoms or concerns. Patient denies unilateral leg swelling or calf pain, history of DVT or PE. PAST MEDICAL HISTORY: as per HPI SOCIAL HISTORY: Per EMR history of tobacco use REVIEW OF SYSTEMS Pertinent positive and negatives as per HPI. PHYSICAL EXAM Vitals [01/11/25 1058] BP Pulse Temp Temp src Resp SpO2 Weight Height (!) 248/140 66 36.8 ?C (98.2 ?F) Oral 18 97 % 114.3 kg (252 lb) 1.727 m (5' 8) General: no apparent distress, well appearing, no diaphoresis Eyes: conjunctival noninjected, eyes tracking HEENT: airway patent, mucous membranes moist Neck: No nuchal rigidity, no limitation range of motion including flexion and extension, no neck tenderness Cardiovascular: regular rhythm, normal rate, symmetrical radial pulses palpable, peripheral extremities warm and well-perfused throughout Respiratory: non-labored breathing, breath sounds clear Gastrointestinal: soft, non-distended, non-tender to deep palpation throughout Extremities: no obvious deformity, non edematous bilateral lower extremities, no calf tenderness Integumentary: warm, dry Neurologic: 1A. Level of consciousness (0-3) = 0 1B. LOC Questions (0-2) = 0 1C. LOC Commands (0-2) = 0 2. Horizontal gaze (0-2) = 0 3. Visual milton (0-3) = 0 4. Facial palsy (0-3) = 0 5. Motor arm Right (0-4) = 0 Left (0-4) = 0 6. Motor leg Right (0-4) = 0 Left (0-4) = 0 7. Limb ataxia (0-2) = 0 8. Sensory (0-2) = 0 9. Best Language = (0-3) = 0 10. Dysarthria (0-2) = 0 11. Extinction and inattention (0-2) = 0 Total NIHSS = 0 MEDICAL DECISION MAKING Systemic symptoms: Denies History and Record Review Clinical information obtained from an independent historian. History obtained from or confirmed by: family member. Differential Diagnoses - See MDM below Management Management of the patient was discussed with:admitting team Discussion with admitting team included: See MDM below Contributing Factors Social Determinants of Health significantly affecting care: smoking Chronic conditions affecting care: hypertension HEART Score - 01/11/25 1511 History Moderately suspicious ECG Normal Age 45-64 Risk Factors >2 risk factors or hx of atherosclerotic disease Troponin Less than or equal to normal limit HEART Score 4 Medications NaCl 0.9% iv flush bag (has no administration in time range) heparin 5,000 Units injection (has no administration in time range) amLODIPine 10 mg tab(s) (NORVASC) (has no administration in time range) losartan 50 mg tab(s) (COZAAR) (has no administration in time range) hydrALAZINE 20 mg tab(s) (APRESOLINE) (has no administration in time range) NaCl 0.9% 1,000 mL iv bolus (1,000 mL INTRAVENOUS New Bag/Syringe/Bottle 01/11/25 1310) prochlorperazine 10 mg injection (COMPAZINE) (10 mg INTRAVENOUS Given 01/11/25 1337) hydrALAZINE 10 mg injection (APRESOLINE) (10 mg INTRAVENOUS Given 01/11/25 1336) hydrALAZINE 10 mg injection (APRESOLINE) (10 mg INTRAVENOUS Given 01/11/25 1437) Nadia Anglin is a 54 year old female who presents as above, 3 months of headache, poorly controlled blood pressure despite outpatient treatment and recent medication adjustment, and chest pain, arrives afebrile hypertensive 256/116, otherwise reassuring vitals, neurologic exam benign, no nuchal rigidity, presentation concerning for headache secondary to poorly controlled hypertension, hypertensive urgency, ACS, clinically low suspicion for PE or aortic dissection, alternative acute secondary headache subtype (more content not included)... Normal [facility] ED Triage Noteon 01-11-2025 ED Triage Note HNO ID: [id number] Author: CIRILO LYNN PA-C Service: Emergency Medicine Author Type: Physician Towel Sewer Type: ED Triage Notes Filed: 01/11/2025 11:00 Note Text: ED TRIAGE PROVIDER NOTE Patient Name: Nadia Anglin Service Date: 01/11/25 BRIEF HPI: This is a 54 year old female who presents to the ED with: High blood pressure, chest pain, headache. Ongoing over the past week or so. Was seen in [place] on Friday. States that she had a scan of her head and belly because she had kidney problems at the time as well. She reports that they gave her medication to drop her blood pressure and discharged her. States that she had a call her PCP and they upped her metoprolol to 25 mg twice a day but states it is not working. She denies any vision changes numbness tingling weakness. No sudden onset headache. No shortness of breath feels some slight shortness of breath as well. She denies any abdominal pain. BRIEF EXAM: NAD Awake and Alert Non labored breathing No focal neurological deficits. NIH 0. INITIAL WORKUP AND DECISION MAKING: Orders Placed This Encounter XR CHEST 1V FRONTAL PORT CT HEAD NONCON Complete Blood Count and Differential Comprehensive Metabolic Panel Magnesium Blood High Sensitivity Troponin I with Reflex for ED Chest Pain ECG Complete w Interpretation - hand to Attending for review (EKG) SIGNATURE: Cirilo Lynn PA-C Normal [facility] Fibrin D-dimer FEU (PPP) [Ma ss/Vol]on 01-11-2025 D DIMER AGE-RELATED CUTOFF 560 ng/mL FEU Normal [facility] Comment on above: Order Comment: Speci men Type: BLOOD SPECIMENOrdering Facility: [facility] Address: [address] [place] [address] Performed By: #### 4 8065-7 ####[facility] LAB[facility]ATORYCLIA [id number] [address] HIGH SENSITIVITY TROPONIN I (INITIAL)on 01-11-2025 Tropinin I.cardiac panel High sensitivity method 4.0 pg/mL Normal 0.0-34.0 [facility] Comment on above: Order Comment: Speci men Type: BLOOD SPECIMENOrdering Facility: [facility] Address: [address] [place] [address] Performed By: #### 2 4323-8, 79688-7, [id number] ####[facility]ORATORYCLIA [id number] [address] [place] HIGH SENSITIVITY TROPONIN I (SECOND)on 01-11-2025 Tropinin I.cardiac panel High sensitivity method 4.1 pg/mL Normal 0.0-34.0 [facility] Comment on above: Order Comment: Speci men Type: BLOOD SPECIMENOrdering Facility: [facility] Address: [address] [place] [address] Performed By: #### H [id number] ####[facility] LABORATORYCLIA [id number] [place] [id number] [place] HISTORY PHYSICALon HISTORY PHYSICAL HNO ID: [id number] Author: LOURDES ALBERTO MD Service: Hospital Medicine Author Type: Physician Type: H&P Filed: 01/11/2025 15:40 Note Text: HISTORY AND PHYSICAL EXAMINATION SERVICE DATE: 01/11/2025 SERVICE TIME: 3:24 PM PRIMARY CARE PHYSICIAN: Clifford Sarmiento DO Subjective CHIEF COMPLAINT: Hypertension urgency HPI: 54 years old with past medical history of morbid obesity, diabetes mellitus type 2, current smoker, history of neuropathy, uncontrolled hypertension presented due to elevated blood pressure. Patient has been having elevated blood pressure and following up with her primary care who increased her metoprolol to tartrate recently and give her referral to cardiology for hypertension. She checked her blood pressure at home today and was 255/119 so decided to come to the emergency department. She has been having headache for the last few months as well as some chest discomfort but no numbness or tingling or weakness. Currently her headache and chest discomfort has improved. No palpitation. She smokes 1 pack/day. FUNCTIONAL STATUS: Independent PAST MEDICAL HISTORY Diagnosis Date Asthma Current smoker Diabetes mellitus type 2, insulin dependent (HCC) Elevated BP Obesity Psoriasis Spinal stenosis PAST SURGICAL HISTORY Procedure Laterality Date DELIVERY ONLY 1990, 1995 , low transverse TUBAL LIGATION, FAMILY HISTORY Problem Relation Age of Onset Diabetes Mother Hypertension Mother Stroke Mother TIA's Heart Father @ 62 d/t IA Heart Maternal Grandfather Diabetes Maternal Grandfather Diabetes Sister @ 50 years, renal failure Social History Tobacco Use Smoking status: Every Day Current packs/day: 1.00 Average packs/day: 1 pack/day for 20.0 years (20.0 ttl pk-yrs) Types: Cigarettes Smokeless tobacco: Never Tobacco comments: 1/2 PPD Substance Use Topics Alcohol use: No Drug use: No (Not in a hospital admission) ALLERGIES Allergen Reactions Codeine Intolerance Iv Contrast [Iodine] Vomiting Primatene Mist [Epi* Vomiting COMPLETE REVIEW OF SYSTEMS: All other systems were reviewed and are negative PHYSICAL EXAM: Physical Exam Performed: General: Patient is alert and oriented x3 and is in no acute respiratory distress HEENT: Normal cephalic, atraumatic, PERRLA, TM's normal, Nose clear, Mouth normal Neck: Negative hepatojugular reflux or jugular venous distention, negative carotid bruit. Lungs: Clear to auscultation, no wheezing, rales, or rhonchi. Cardiac: Regular rhythm and rate, S1-S2 within normal limits, no murmurs, gallops were appreciated, no rubs. Abdomen: Soft, nontender, nondistended, no HSM detected, bowel sounds are active. Extremities: No edema, cyanosis, or clubbing. Skin: No rashes or breakdown. Musculoskeletal: normal MS exam, moves all extremities, DTR's normal Neurologic: Cranial nerves from II-XII intact grossly, no focal deficits. BP 180/71 Pulse 77 Temp (Src) 98.2 (Oral) Resp 24 Ht 5' 8 (1.73m) Wt 252 lb (114.3kg) SpO2 96% LMP 10/21/2011 BMI 38.33 kg/(m2). O2 Therapy: Room Air DATA: No intake or output data in the 24 hours ending 01/11/25 1524 Current Facility-Administered Medications Medication Dose Route Frequency Provider Last Rate Last Admin NaCl 0.9% iv flush bag 20 mL INTRAVENOUS PRN Lourdes Alberto MD heparin 5,000 Units injection 5,000 Units SUBCUTANEOUS q 12 H Lourdes Alberto MD amLODIPine 10 mg tab(s) (NORVASC) 10 mg ORAL DAILY Lourdes Alberto MD hydrALAZINE 20 mg tab(s) (APRESOLINE) 20 mg ORAL TID PRN Lourdes Alberto MD lisinopril 40 mg tab(s) (ZESTRIL) 40 mg ORAL DAILY Lourdes Alberto MD dextrose 40 % 15 g 15 g ORAL PRN Lourdes Alberto MD Or glucagon 1 mg injection 1 mg INTRAMUSCULAR PRN Lourdes Alberto MD Or dextrose 10% iv bolus 12.5 g INTRAVENOUS PRN Lourdes Alberto MD insulin lispro injection (rapid acting) (ADMElog) SUBCUTANEOUS w MEALS Lourdes Alberto MD insulin lispro injection (rapid acting) (ADMElog) SUBCUTANEOUS AT BEDTIME Lourdes Alberto MD Current Outpatient Medications Medication Sig Dispense Refill FREESTYLE LITE STRIPS test strip cyclobenzaprine (FLEXERIL) 10 mg tablet Take 10 mg by mouth. gabapentin (NEURONTIN) 100 mg capsule Take 200 mg by mouth twice daily. HYDROcodone-acetaminoph en (NORCO) 5-325 mg per tablet Take 1 tablet by mouth. BASAGLAR KWIKPEN U-100 INSULIN 100 unit/mL (3 mL) FREESTYLE LANCETS 28 gauge metoprolol tartrate, short acting, (LOPRESSOR) 25 mg tablet BD INSULIN PEN NEEDLE UF 31 gauge x 03/04 sertraline (ZOLOFT) 100 mg tablet Take 100 mg by mouth. metFORMIN (GLUCOPHAGE) 500 mg tablet Take 1,000 mg by mouth twice daily with meals. Aspirin 81 mg Tab 2 tabs once a day. Take with food. (Patient not taking: Reported on 01/27/2020 ) omeprazole (PRILOSEC) 20 mg capsule Take 1 capsule by mouth daily before breakfast. 1/2 hr before meal. 30 capsule 5 fluticaso (more content not included)... Normal [facility] Magnesium SerPl-mCncon 01-11 Magnesium [Mass/Vol] 1.8 mg/dL Normal 1.6-2.6 [facility] Comment on above: Order Comment: Speci men Type: BLOOD SPECIMEN [facility] Address: [address] [place] [address] Performed By: #### 2 4323-8, 29648-5, [id number] #### [facility] CLIA [id number] [address] [place] [address] [place] TSH SerPl-aCncon 01-11-2025 TSH Qn 0.336 m[IU]/L Low 0.358-3.740 [facility] Comment on above: Order Comment: Speci men Type: BLOOD SPECIMENOrdering Facility: [facility] Address: [address] [place] [address] Result Comment: 3rd generation ultra sensitive TSH. Performed By: #### 3 016-3 ####[facility] LABORATORYCLIA [id number] [place] [address] [place] XR CHEST 1V FRONTAL PORTon 0 01-11-2025 XR CHEST 1V FRONTAL PORT * * *Final Report* * * DATE OF EXAM: Jan 11 2025 11:37AM RHX [id number] - XR CHEST 1V FRONTAL PORT / PROCEDURE REASON: Chest pain * * * * Physician Interpretation * * * * EXAMINATION: CHEST RADIOGRAPH (PORTABLE SINGLE VIEW AP) Exam Date/Time: 01/11/2025 11:37 AM CLINICAL HISTORY: Chest pain MQ: XCPR_5 Comparison: 10/24/2006 RESULT: Lines, tubes, and devices: None. Lungs and pleura: No focal consolidation, vascular congestion or pleural fluid. No pneumothorax. Cardiomediastinal silhouette: Stable cardiomediastinal silhouette. Other: . IMPRESSION: No acute process. Senior Economist: PSCB Transcribe Date/Time: Jan 11 2025 11:40A Dictated by : MARLEY PALOMO MD This examination was interpreted and the report reviewed and electronically signed by: MARLEY PALOMO MD on Jan 11 2025 11:40AM EST [id number] Normal [facility] .Auto Diffon 01-09-2025 Basophil, Absolute 0.1 10 3/mcL [facility] 0[facility]0-0.2 [facility] Comment on above: Performed By: #### T ROPHS, BMP, ADIFF, CBC, ANEU, MDW, GFR #### [address] [address] Basophils/100 WBC (Bld) 1.2 % Normal 0.0-2.5 [facility] Comment on above: Performed By: #### T ROPHS, BMP, ADIFF, CBC, ANEU, MDW, GFR #### [address] [address] Eosinophil, Absolute 0.2 10 3/mcL Normal 0.0-0.7 [facility] Comment on above: Performed By: #### T ROPHS, BMP, ADIFF, CBC, ANEU, MDW, GFR #### [address] [address] Eosinophils/100 WBC (Bld) 2.4 % Normal 0.0-7.0 [facility] Comment on above: Performed By: #### T ROPHS, BMP, ADIFF, CBC, ANEU, MDW, GFR #### [address] [address] Lymphocyte, Absolute 2.0 10 3/mcL Normal 0.9-4.3 [facility] Comment on above: Performed By: #### T ROPHS, BMP, ADIFF, CBC, ANEU, MDW, GFR #### [address] [address] Lymphocytes/100 WBC (Bld) 25.0 % Normal 20.0-40.0 [facility] Comment on above: Performed By: #### T ROPHS, BMP, ADIFF, CBC, ANEU, MDW, GFR #### [address] [address] Monocyte, Absolute 0.5 10 3/mcL Normal 0.1-1.4 [facility] Comment on above: Performed By: #### T ROPHS, BMP, ADIFF, CBC, ANEU, MDW, GFR #### [address] [address] Monocytes/100 WBC (Bld) 5.8 % Normal 2.0-13.0 [facility] Comment on above: Performed By: #### T ROPHS, BMP, ADIFF, CBC, ANEU, MDW, GFR #### [address] [address] Neutrophils/100 WBC (Bld) 65.6 % Normal 50.0-75.0 [facility] Comment on above: Performed By: #### T ROPHS, BMP, ADIFF, CBC, ANEU, MDW, GFR #### [address] [address] .GFRon 01-09-2025 Estimated Glomerular Filtration Rate 71 ml/min/1.73sqm Normal [facility] Comment on above: Result Comment: Stages of Chronic Kidney Disease (CKD) Stage Description eGFR(ml/min/1.73 sq.m.) CKD 1 Normal kidney function or >=90 normal kindney function with possible kidney damage (ex. Proteinuria) CKD 2 Kidney damage with mild loss 60-89 of kidney function CKD 3a Mild to moderate loss of kidney 45-59 function CKD 3b Moderate to severe loss of 30-44 of kindey function CKD 4 Severe loss of kidney function 15-29 CKD 5 Kidney failure <15 Note: (go live 2024) the eGFR calculation was updated to the 2020 CKD-EPI creatinine equation without a race factor to calculate the eGFR results. Performed By: #### T CEM, MAHI, ADIFF, CBC, ANEU, MDW, GFR #### [place] [address] .MDWon 01-09-2025 Monocyte Distribution Width 18.22 Normal 0.00-20.00 [facility] Comment on above: Result Comment: For ED adult patients suspected of sepsis, MDW<=20.0 does not rule out sepsis or risk of sepsis Performed By: #### T CEM, MAHI, ADIFF, CBC, ANEU, MDW, GFR #### [place] [address] .NEUABSon 01-09-2025 Neutrophil, Absolute 5.1 10 3/mcL Normal 2.3-8.1 [facility] Comment on above: Performed By: #### T CEM, MAHI, ADIFF, CBC, ANEU, MDW, GFR #### [place] [address] .Urinalysis Microscopic (AO) on 01-09-2025 UA Bacteria 3+ /hpf Abnormal [facility] Comment on above: Performed By: #### U AMICAO, UA #### [place] [address] UA RBC 5-10 Abnormal None Seen [facility] Comment on above: Performed By: #### U AMICAO, UA #### [place] [address] UA Squam Epithelial 5-10 Abnormal None Seen [facility] Comment on above: Performed By: #### U AMICAO, UA #### [place] [address] UA WBC 0-5 Abnormal None Seen [facility] Comment on above: Performed By: #### U AMICAO, UA #### [place] [address] UA Yeast Trace Abnormal [facility] Comment on above: Performed By: #### U AMICAO, UA #### [address] [address] BMPon 01-09-2025 BUN/Creatinine Ratio 16 ratio Normal 7-27 [facility] Comment on above: Performed By: #### T ROPHS, BMP, ADIFF, CBC, ANEU, MDW, GFR #### [address] [address] Calcium [Mass/Vol] 8.5 mg/dL Normal 8.4-10.2 [facility] Comment on above: Performed By: #### T ROPHS, BMP, ADIFF, CBC, ANEU, MDW, GFR #### [address] [address] Chloride [Moles/Vol] 105 mmol/L Normal 98-107 [facility] Comment on above: Performed By: #### T ROPHS, BMP, ADIFF, CBC, ANEU, MDW, GFR #### [address] [address] CO2 [Moles/Vol] 26 mmol/L Normal 22-29 [facility] Comment on above: Performed By: #### T ROPHS, BMP, ADIFF, CBC, ANEU, MDW, GFR #### [address] [address] Creatinine [Mass/Vol] 0.94 mg/dL Normal 0.55-1.02 [facility] Comment on above: Result Comment: Test ing performed on Siemens Dimension EXL analyzer using a modified kinetic Kisha technique. Performed By: #### T ROPHS, BMP, ADIFF, CBC, ANEU, MDW, GFR #### [address] [address] Electrolyte Balance 7.0 mEq/L Normal 4.0-15.0 [facility] Comment on above: Performed By: #### T ROPHS, BMP, ADIFF, CBC, ANEU, MDW, GFR #### [address] [address] Glucose [Mass/Vol] 201 mg/dL High 70-105 [facility] Comment on above: Performed By: #### T ROPHS, BMP, ADIFF, CBC, ANEU, MDW, GFR #### [address] [address] Potassium [Moles/Vol] 4.1 mmol/L Normal 3.5-5.1 [facility] Comment on above: Performed By: #### T ROPHS, BMP, ADIFF, CBC, ANEU, MDW, GFR #### [address] [address] Sodium [Moles/Vol] 138 mmol/L Normal 136-145 [facility] Comment on above: Performed By: #### T JENNAHS, BMP, ADIFF, CBC, ANEU, MDW, GFR #### [address] [address] Urea nitrogen [Mass/Vol] 15 mg/dL Normal 7-18 [facility] Comment on above: Performed By: #### T ROPHS, BMP, ADIFF, CBC, ANEU, MDW, GFR #### [address] [address] CBCon 01-09-2025 Erythrocyte distribution width (RBC) [Ratio] 14.0 % Normal 11.5-15.5 [facility] Comment on above: Performed By: #### T JENNAHS, BMP, ADIFF, CBC, ANEU, MDW, GFR #### [address] [address] Hematocrit (Bld) [Volume fraction] 38.9 % Normal 34.0-46.0 [facility] Comment on above: Performed By: #### T ROPHS, BMP, ADIFF, CBC, ANEU, MDW, GFR #### [address] [address] Hgb 13.1 G/dL Normal 12.0-16.0 [facility] Comment on above: Performed By: #### T ROPHS, BMP, ADIFF, CBC, ANEU, MDW, GFR #### [address] [address] MCH (RBC) [Entitic mass] 29.8 pg Normal 27.0-33.0 [facility] Comment on above: Performed By: #### T ROPHS, BMP, ADIFF, CBC, ANEU, MDW, GFR #### [address] [address] MCHC 33.7 G/dL Normal 32.0-36.0 [facility] Comment on above: Performed By: #### T ROPHS, BMP, ADIFF, CBC, ANEU, MDW, GFR #### [address] [address] MCV (RBC) [Entitic vol] 88.5 fL Normal 80.0-99.0 [facility] Comment on above: Performed By: #### T ROPHS, BMP, ADIFF, CBC, ANEU, MDW, GFR #### [place] [address] Platelet 123 10 3/mcL Low 150-450 [facility] Comment on above: Performed By: #### T ROPHS, BMP, ADIFF, CBC, ANEU, MDW, GFR #### [address] [address] Platelet mean volume (Bld) [Entitic vol] 8.8 fL Normal 6.6-10.5 [facility] Comment on above: Performed By: #### T ROPHS, BMP, ADIFF, CBC, ANEU, MDW, GFR #### [address] [address] RBC 4.39 10 6/mcL Normal 4.10-5.30 [facility] Comment on above: Performed By: #### T ROPHS, BMP, ADIFF, CBC, ANEU, MDW, GFR #### [address] [address] WBC 7.8 10 3/mcL Normal 4.5-10.8 [facility] Comment on above: Performed By: #### T ROPHS, BMP, ADIFF, CBC, ANEU, MDW, GFR #### [facility] [address] [place], [place] [address] CT ABDOMEN/PELVIS W/O CONTRA STon 01-09-2025 CT ABDOMEN/PELVIS W/O CONTRAST ORIGINAL EXAMINATION: CT OF THE ABDOMEN AND PELVIS WITHOUT CONTRAST 01/09/2025 1:17 pm TECHNIQUE: CT of the abdomen and pelvis was performed without the administration of intravenous contrast. Multiplanar reformatted images are provided for review. Automated exposure control, iterative reconstruction, and/or weight based adjustment of the mA/kV was utilized to reduce the radiation dose to as low as reasonably achievable. COMPARISON: 04/16/2024, 08/12/2023. HISTORY: ORDERING SYSTEM PROVIDED HISTORY: Reason for Exam: flank pain, hx pyelo FINDINGS: Body habitus obscures some detail. Degenerative changes of the spine. Focal irregular consolidation in the right middle lobe on series 2, image 10 measures 1.1 cm. Cirrhotic morphology. Portosystemic collaterals are noted. Porcelain gallbladder persists. Spleen appears enlarged. Normal pancreas. A splenule is also noted. The adrenal glands appear unremarkable. Mild left renal atrophy with focal cortical scarring anteriorly in the midpole. No evidence of hydronephrosis or nephrolithiasis. No abdominal lymphadenopathy, free fluid, or intraperitoneal free air. No acute GI abnormality. Under distended urinary bladder limiting evaluation. Otherwise the pelvic organs are unrevealing. Small fat containing umbilical hernia. IMPRESSION: Stable appearance of the unenhanced kidneys without evidence of stone disease or obstruction. Cirrhosis with evidence of portal hypertension. Interval irregular area of consolidation in the right middle lobe, which may reflect scarring. Precautionary CT thorax advised in 3 months to ensure stability. Porcelain gallbladder, also seen on the comparison. I have reviewed this report and agree with the resident findings and interpretation. Interpreted by: Radhika Corona MD Preliminary Report By: Vipul Rausch Electronically signed By Radhika Corona MD Dictated Date: 01/09/2025 1:23:00 PM Prelim Date: 01/09/2025 1:33:10 PM Sign Date: 01/09/2025 1:39:31 PM Ordering Provider: ALBERT Herrera [facility] CT HEAD OR BRAIN W/O CONTRAS Kush 01-09-2025 CT HEAD OR BRAIN W/O CONTRAST ORIGINAL HISTORY: Headache, hypertension COMPARISON: No TECHNIQUE: Routine noncontrast head CT, with sagittal and coronal reconstructions. This exam was performed according to our departmental dose optimization program, and includes the following measures where applicable: automated exposure control, adjustment of the mAs and/or kVp according to patient size and/or exam, and an iterative reconstruction algorithm. FINDINGS: The ventricles and sulci are normal in size and configuration. There are no abnormal intra or extra-axial fluid collections. Mooney-white matter differentiation is maintained. The calvaria and the bones of the base of the skull are intact. IMPRESSION: Normal examination. Interpreted by: Radhika Corona MD Preliminary Report By: Radhika Corona MD Electronically signed By Radhika Corona MD Dictated Date: 01/09/2025 12:09:23 PM Prelim Date: 01/09/2025 12:10:14 PM Sign Date: 01/09/2025 12:10:14 PM Ordering Provider: ALBERT Herrera [facility] 01-09-2025 High Sensitivity Troponin I 9 ng/L Normal 0-51 [facility] Comment on above: Result Comment: High Sensitive Troponin I Reference Ranges: Female: 0-51 ng/L Male: 0-76 ng/L Testing performed on MycooN using a homogeneous sandwich chemiluminescent immunoassay based on [employer] technology. Performed By: #### T CEM, BMP, ADIFF, CBC, ANEU, MDW, GFR #### [address] [address] UAon 01-09-2025 Color (U) Yellow Normal [facility] Comment on above: Performed By: #### U AMICAO, UA #### [address] [address] Glucose (U) [Mass/Vol] Negative Normal Negative [facility] Comment on above: Performed By: #### U AMICAO, UA #### [address] [address] Ketones Ql (U) Negative Normal Negative [facility] Comment on above: Performed By: #### U AMICAO, UA #### [address] [address] UA Appear Clear Normal Clear [facility] Comment on above: Performed By: #### U AMICAO, UA #### [address] [address] UA Blood Moderate Abnormal Negative [facility] Comment on above: Performed By: #### U AMICAO, UA #### [address] [address] UA Leuk Est Negative Normal Negative [facility] Comment on above: Performed By: #### U AMICAO, UA #### [place] [address] UA Nitrite Negative Normal Negative [facility] Comment on above: Performed By: #### U AMICAO, UA #### [place] [address] UA pH 6.0 Normal 5.0 - 8.0 [facility] Comment on above: Performed By: #### U AMICAO, UA #### [place] [address] UA Protein 100 mg/dL Abnormal Negative [facility] Comment on above: Performed By: #### U AMICAO, UA #### [place] [address] UA Spec Grav 1.010 Abnormal 1.015-1.025 [facility] Comment on above: Performed By: #### U AMICAO, UA #### [place] [address] UA Specimen Type Not Given Normal [facility] Comment on above: Performed By: #### U AMICAO, UA #### [place] [address] UA Urobilinogen 0.2 E.U./dL Normal 0.2-1.0 [facility] Comment on above: Performed By: #### U AMICAO, UA #### [place] [address] Urobilinogen (U) [Mass/Vol] Negative Normal Negative [facility] Comment on above: Performed By: #### U AMICAO, UA #### [address] [address] XR CHEST 1 VIEWon 01-09-2025 XR CHEST 1 VIEW ORIGINAL HISTORY: Hypertension COMPARISON: 18 August 2023 FINDINGS: Film is rotated. There are a few mild streaky airspace opacities in the right upper lobe and left base. Pulmonary vasculature is unremarkable in appearance. The cardiac silhouette is within normal size limits. IMPRESSION: Mild atelectasis or less likely consolidation Interpreted by: Radhika Corona MD Preliminary Report By: Radhika Corona MD Electronically signed By Radhika Corona MD Dictated Date: 01/09/2025 12:12:15 PM Prelim Date: 01/09/2025 12:12:54 PM Sign Date: 01/09/2025 12:12:54 PM Ordering Provider: ALBERT PALOMO [facility] .Auto Diffon 04-24-2024 Basophil, Absolute 0.1 10 3/mcL Normal 0.0-0.2 [facility] ([place]) Comment on above: Performed By: #### A ALEKS DANG, GFR, ADIFF, BMP, CBC #### [address] [address] Basophils/100 WBC (Bld) 0.8 % Normal 0.0-2.5 [facility] ([place]) Comment on above: Performed By: #### A ALEKS DANG, GFR, ADIFF, BMP, CBC #### [address] [address] Eosinophil, Absolute 0.1 10 3/mcL Normal 0.0-0.4 [facility] ([place]) Comment on above: Performed By: #### A ALEKS DANG, GFR, ADIFF, BMP, CBC #### [address] [address] Eosinophils/100 WBC (Bld) 1.1 % Normal 0.0-7.0 [facility] ([place]) Comment on above: Performed By: #### A ALEKS DANG, GFR, ADIFF, BMP, CBC #### [address] [address] Lymphocyte, Absolute 2.2 10 3/mcL Normal 0.8-3.9 [facility] ([place]) Comment on above: Performed By: #### A ALEKS DANG, GFR, ADIFF, BMP, CBC #### [address] [address] Lymphocytes/100 WBC (Bld) 20.2 % Normal 10.0-50.0 [facility] ([place]) Comment on above: Performed By: #### A ALEKS DANG, GFR, ADIFF, BMP, CBC #### [address] [address] Monocyte, Absolute 0.5 10 3/mcL Normal 0.2-1.0 [facility] ([place]) Comment on above: Performed By: #### A ALEKS DANG, GFR, ADIFF, BMP, CBC #### [address] [address] Monocytes/100 WBC (Bld) 4.7 % Normal 1.7-13.0 [facility] ([place]) Comment on above: Performed By: #### A ALEKS DANG, GFR, ADIFF, BMP, CBC #### [address] [address] Neutrophils/100 WBC (Bld) 73.2 % Normal 37.0-80.0 [facility] ([place]) Comment on above: Performed By: #### A ALEKS DANG, GFR, ADIFF, BMP, CBC #### [address] [address] .GFRon 04-24-2024 GFR 61 ml/min/1.73sqm Normal [facility] ([place]) Comment on above: Result Comment: GFR Population mean for , Non- Americans Ages 20-29 = 116 mL/min/1.73 sq.m. Ages 30-39 = 107 mL/min/1.73 sq.m. Ages 40-49 = 99 mL/min/1.73 sq.m. Ages 50-59 = 93 mL/min/1.73 sq.m. Ages 60-69 = 85 mL/min/1.73 sq.m. Ages 70+ = 75 mL/min/1.73 sq.m. Chronic Kidney Disease: Less than 60 mL/min/1.73 square meters End Stage Renal Disease: Less than 15 mL/min/1.73 square meters Performed By: #### M DW, ANEU, BMP, CBC, ADIFF, GFR ####[address] [place], [place] [address] GFR Non- 51 ml/min/1.73sqm Normal [facility] ([place]) Comment on above: Result Comment: GFR Population mean for , Non- Americans Ages 20-29 = 116 mL/min/1.73 sq.m. Ages 30-39 = 107 mL/min/1.73 sq.m. Ages 40-49 = 99 mL/min/1.73 sq.m. Ages 50-59 = 93 mL/min/1.73 sq.m. Ages 60-69 = 85 mL/min/1.73 sq.m. Ages 70+ = 75 mL/min/1.73 sq.m. Chronic Kidney Disease: Less than 60 mL/min/1.73 square meters End Stage Renal Disease: Less than 15 mL/min/1.73 square meters Performed By: #### M DW, ANEU, BMP, CBC, ADIFF, GFR ####[address] [place], [place] [address] .MDWon 04-24-2024 Monocyte Distribution Width 16.87 Normal 0.00-20.00 [facility] ([place]) Comment on above: Result Comment: For ED adult patients suspected of sepsis, MDW<=20.0 does not rule out sepsis or risk of sepsis Performed By: #### M DW, ANEU, BMP, CBC, ADIFF, GFR ####[address] [place], [place] [address] .NEUABSon 04-24-2024 Neutrophil, Absolute 8.0 10 3/mcL High 2.9-6.2 [facility] ([place]) Comment on above: Performed By: #### M DW, ANEU, BMP, CBC, ADIFF, GFR ####[address] [place], [place] [address] BMPon 04-24-2024 BUN/Creatinine Ratio 15 ratio Normal 7-27 [facility] ([place]) Comment on above: Order Comment: Hemol yzed Performed By: #### M DW, ANEU, BMP, CBC, ADIFF, GFR ####[address] [place], [place] [address] Calcium [Mass/Vol] 8.5 mg/dL Normal 8.4-10.2 [facility] ([place]) Comment on above: Order Comment: Hemol yzed Performed By: #### M DW, ANEU, BMP, CBC, ADIFF, GFR ####[address] [place], [place] [address] Chloride [Moles/Vol] 103 mmol/L Normal 98-107 [facility] ([place]) Comment on above: Order Comment: Hemol yzed Performed By: #### M DW, ANEU, BMP, CBC, ADIFF, GFR ####[address] [place], [place] [address] CO2 [Moles/Vol] 23 mmol/L Normal 22-29 [facility] ([place]) Comment on above: Order Comment: Hemol yzed Performed By: #### M DW, ANEU, BMP, CBC, ADIFF, GFR ####[address] [place], [place] [address] Creatinine [Mass/Vol] 1.12 mg/dL High 0.55-1.02 [facility] ([place]) Comment on above: Order Comment: Hemol yzed Performed By: #### M DW, ANEU, BMP, CBC, ADIFF, GFR ####[address] [place], [place] [address] Electrolyte Balance 10.0 mEq/L Normal 4.0-15.0 [facility] ([place]) Comment on above: Order Comment: Hemol yzed Performed By: #### M DW, ANEU, BMP, CBC, ADIFF, GFR ####[address] [place], [place] [address] Glucose [Mass/Vol] 136 mg/dL High 70-105 [facility] ([place]) Comment on above: Order Comment: Hemol yzed Performed By: #### M DW, ANEU, BMP, CBC, ADIFF, GFR ####[address] [place], [place] [address] Potassium [Moles/Vol] 4.3 mmol/L Normal 3.5-5.1 [facility] ([place]) Comment on above: Order Comment: Hemol yzed Performed By: #### M DW, ANEU, BMP, CBC, ADIFF, GFR ####[address] [place], [place] [address] Sodium [Moles/Vol] 136 mmol/L Normal 136-145 [facility] ([place]) Comment on above: Order Comment: Hemol yzed Performed By: #### M FRED, ANEU, BMP, CBC, ADIFF, GFR ####[address] [place], [place] [address] Urea nitrogen [Mass/Vol] 17 mg/dL Normal 7-18 [facility] ([place]) Comment on above: Order Comment: Hemol yzed Performed By: #### M FRED, ANEU, BMP, CBC, ADIFF, GFR ####[address] [place], [place] [address] CBCon 04-24-2024 Erythrocyte distribution width (RBC) [Ratio] 13.8 % Normal 11.5-14.5 [facility] ([place]) Comment on above: Performed By: #### A ALEKS DANG, GFR, ADIFF, BMP, CBC #### [address] [address] Hematocrit (Bld) [Volume fraction] 42.6 % Normal 37.0-47.0 [facility] ([place]) Comment on above: Performed By: #### A ALEKS DANG, GFR, ADIFF, BMP, CBC #### [address] [address] Hgb 14.6 G/dL Normal 12.0-16.0 [facility] ([place]) Comment on above: Performed By: #### A ALEKS DANG, GFR, ADIFF, BMP, CBC #### [address] [address] MCH (RBC) [Entitic mass] 31.0 pg Normal 27.0-31.2 [facility] ([place]) Comment on above: Performed By: #### A ALEKS DANG, GFR, ADIFF, BMP, CBC #### [address] [address] MCHC 34.4 G/dL Normal 33.0-37.0 [facility] ([place]) Comment on above: Performed By: #### A ALEKS DANG, GFR, ADIFF, BMP, CBC #### [place] [address] MCV (RBC) [Entitic vol] 90.3 fL Normal 80.0-94.0 [facility] ([place]) Comment on above: Performed By: #### A ALEKS DANG, GFR, ADIFF, BMP, CBC #### [address] [address] Platelet 140 10 3/mcL Normal 130-400 [facility] ([place]) Comment on above: Performed By: #### A ALEKS DANG, GFR, ADIFF, BMP, CBC #### [place] [address] Platelet mean volume (Bld) [Entitic vol] 8.6 fL Normal 7.4-10.4 [facility] ([place]) Comment on above: Performed By: #### A ALEKS DANG, GFR, ADIFF, BMP, CBC #### [address] [address] RBC 4.71 10 6/mcL Normal 4.20-5.40 [facility] ([place]) Comment on above: Performed By: #### A ALEKS DANG, GFR, ADIFF, BMP, CBC #### [place] [id number] WBC 10.9 10 3/mcL High 4.6-10.8 [facility] ([place]) Comment on above: Performed By: #### A ALEKS DANG, GFR, ADIFF, BMP, CBC #### [place] [address] LABORATORYOrdered By: Carmen Lee on 04-24-2024 Appearance (U) Clear (04/24/24 10:30 AM) Normal Clear AO Auto Urine SS Bilirubin Ql (U) Negative (04/24/24 10:30 AM) Normal Negative AO Auto Urine SS Color (U) Yellow (04/24/24 10:30 AM) Normal AO Auto Urine SS Glucose Test strip (U) [Mass/Vol] Negative Normal Negative AO Auto Urine SS Hemoglobin Auto test strip (U) [Mass/Vol] Trace *ABN* (04/24/24 10:30 AM) Invalid Interpretation Code Negative AO Auto Urine SS Ketones Ql (U) Negative Normal Negative AO Auto Urine SS UA Leuk Est Negative (04/24/24 10:30 AM) Normal Negative AO Auto Urine SS UA Nitrite Negative (04/24/24 10:30 AM) Normal Negative AO Auto Urine SS UA pH 6.0 (04/24/24 10:30 AM) Normal 5.0 - 8.0 AO Auto Urine SS UA Protein Negative Normal Negative AO Auto Urine SS UA Spec Grav 1.020 (04/24/24 10:30 AM) Normal 1.015-1.025 AO Auto Urine SS UA Specimen Type Clean Catch (04/24/24 10:30 AM) Normal AO Auto Urine SS UA Urobilinogen 1.0 E.U./dL Normal 0.2-1.0 AO Auto Urine SS LABORATORYOrdered By: SYSTEM SYSTEM on 04-24-2024 Calcium [Mass/Vol] 8.5 mg/dL Normal 8.4 - 10. 2 mg/dL AO ADM SS Chloride [Moles/Vol] 103 mmol/L Normal 98 - 10 7 mmol/L AO ADM SS CO2 [Moles/Vol] 23 mmol/L Normal 22 - 29 mmol/L AO ADM SS Creatinine [Mass/Vol] 1.12 mg/dL High 0.55 - 1.02 mg/dL AO ADM SS Electrolyte Balance 10.0 mEq/L Normal 4.0 - 15 .0 mEq/L AO ADM SS GFR/1.73 sq M.predicted among blacks MDRD (S/P/Bld) [Vol rate/Area] 61 ml/min/1.73sqm Invalid Interpretation Code AO Chemistry S Comment on above: Interpretive Data: GFR Population mean for , Non- Americans Ages 20-29 = 116 mL/min/1.73 sq.m. Ages 30-39 = 107 mL/min/1.73 sq.m. Ages 40-49 = 99 mL/min/1.73 sq.m. Ages 50-59 = 93 mL/min/1.73 sq.m. Ages 60-69 = 85 mL/min/1.73 sq.m. Ages 70+ = 75 mL/min/1.73 sq.m. Chronic Kidney Disease: Less than 60 mL/min/1.73 square meters End Stage Renal Disease: Less than 15 mL/min/1.73 square meters GFR/1.73 sq M.predicted among non-blacks MDRD (S/P/Bld) [Vol rate/Area] 51 ml/min/1.73sqm Invalid Interpretation Code AO Chemistry S Comment on above: Interpretive Data: GFR Population mean for , Non- Americans Ages 20-29 = 116 mL/min/1.73 sq.m. Ages 30-39 = 107 mL/min/1.73 sq.m. Ages 40-49 = 99 mL/min/1.73 sq.m. Ages 50-59 = 93 mL/min/1.73 sq.m. Ages 60-69 = 85 mL/min/1.73 sq.m. Ages 70+ = 75 mL/min/1.73 sq.m. Chronic Kidney Disease: Less than 60 mL/min/1.73 square meters End Stage Renal Disease: Less than 15 mL/min/1.73 square meters Glucose [Mass/Vol] 136 mg/dL High 70 - 105 mg/dL AO ADM SS Potassium [Moles/Vol] 4.3 mmol/L Normal 3.5 - 5.1 mmol/L AO ADM SS Sodium [Moles/Vol] 136 mmol/L Normal 136 - 145 mmol/L AO ADM SS Urea nitrogen [Mass/Vol] 17 mg/dL Normal 7 - 18 mg/dL AO ADM SS Urea nitrogen/Creatinine [Mass ratio] 15 ratio Normal 7 - 27 ratio AO ADM SS Basophil, Absolute 0.1 103/mcL Normal 0.0 - 0.2 10^3/mcL AO Workflow SS Basophils/100 WBC (Bld) 0.8 % Normal 0.0 - 2.5 % AO Workflow SS Eosinophil, Absolute 0.1 103/mcL Normal 0.0 - 0 .4 10^3/mcL AO Workflow SS Eosinophils/100 WBC (Bld) 1.1 % Normal 0.0 - 7.0 % AO Workflow SS Erythrocyte distribution width (RBC) [Ratio] 13.8 % Normal 11.5 - 14.5 % AO Workflow SS Hematocrit (Bld) [Volume fraction] 42.6 % Normal 37.0 - 47.0 % AO Workflow SS Hemoglobin (Bld) [Mass/Vol] 14.6 G/dL Normal 12.0 - 16.0 G/dL AO Workflow SS Lymphocyte, Absolute 2.2 103/mcL Normal 0.8 - 3 .9 10^3/mcL AO Workflow SS Lymphocytes/100 WBC (Bld) 20.2 % Normal 10.0 - 50.0 % AO Workflow SS MCH (RBC) [Entitic mass] 31.0 pg Normal 27.0 - 31.2 pg AO Workflow SS MCHC 34.4 G/dL Normal 33.0 - 37.0 G/dL AO Workflow SS MCV (RBC) [Entitic vol] 90.3 fL Normal 80.0 - 94.0 fL AO Workflow SS Monocyte distribution width Auto (Bld) [Entitic vol] 16.87 1 Normal 0.00 - 20.00 AO Workflow SS Comment on above: Result Comment: For ED adult patients suspected of sepsis, MDW<=20.0 does not rule out sepsis or risk of sepsis Monocyte, Absolute 0.5 103/mcL Normal 0.2 - 1.0 10^3/mcL AO Workflow SS Monocytes/100 WBC (Bld) 4.7 % Normal 1.7 - 13.0 % AO Workflow SS Neutrophil, Absolute 8.0 103/mcL High 2.9 - 6 .2 10^3/mcL AO Workflow SS Neutrophils/100 WBC (Bld) 73.2 % Normal 37.0 - 80.0 % AO Workflow SS Platelet mean volume (Bld) [Entitic vol] 8.6 fL Normal 7.4 - 10.4 fL AO Workflow SS Platelets (Bld) [#/Vol] 140 103/mcL Normal 130 - 400 10^3/mcL AO Workflow SS RBC (Bld) [#/Vol] 4.71 106/mcL Normal 4.20 - 5.4 0 10^6/mcL AO Workflow SS WBC (Bld) [#/Vol] 10.9 103/mcL High 4.6 - 10.8 10^3/mcL AO Workflow SS UAon 04-24-2024 Color (U) Yellow Normal [facility] ([place]) Comment on above: Performed By: #### B MP, GFR, MG, ANEU, ADIFF, CBC #### [address] [address] Glucose (U) [Mass/Vol] Negative Normal Negative [facility] ([place]) Comment on above: Performed By: #### B MP, GFR, MG, ANEU, ADIFF, CBC #### [address] [address] Ketones Ql (U) Negative Normal Negative [facility] ([place]) Comment on above: Performed By: #### B MP, GFR, MG, ANEU, ADIFF, CBC #### [address] [address] UA Appear Clear Normal Clear [facility] ([place]) Comment on above: Performed By: #### B MP, GFR, MG, ANEU, ADIFF, CBC #### [address] [address] UA Blood Trace Abnormal Negative [facility] ([place]) Comment on above: Performed By: #### B MP, GFR, MG, ANEU, ADIFF, CBC #### [address] [address] UA Leuk Est Negative Normal Negative [facility] ([place]) Comment on above: Performed By: #### B MP, GFR, MG, ANEU, ADIFF, CBC #### [address] [address] UA Nitrite Negative Normal Negative [facility] ([place]) Comment on above: Performed By: #### B MP, GFR, MG, ANEU, ADIFF, CBC #### [address] [address] UA pH 6.0 Normal 5.0 - 8.0 [facility] ([place]) Comment on above: Performed By: #### B MP, GFR, MG, ANEU, ADIFF, CBC #### [address] [address] UA Protein Negative Normal Negative [facility] ([place]) Comment on above: Performed By: #### B MP, GFR, MG, ANEU, ADIFF, CBC #### [address] [address] UA Spec Grav 1.020 Normal 1.015-1.025 [facility] ([place]) Comment on above: Performed By: #### B MP, GFR, MG, ANEU, ADIFF, CBC #### [address] [address] UA Specimen Type Clean Catch Normal [facility] ([place]) Comment on above: Performed By: #### B MP, GFR, MG, ANEU, ADIFF, CBC #### [address] [address] UA Urobilinogen 1.0 E.U./dL Normal 0.2-1.0 [facility] ([place]) Comment on above: Performed By: #### B MP, GFR, MG, ANEU, ADIFF, CBC #### [place] [address] Urobilinogen (U) [Mass/Vol] Negative Normal Negative [facility] ([place]) Comment on above: Performed By: #### B MP, GFR, MG, ANEU, ADIFF, CBC #### [address] [address] .GFRon 04-18-2024 GFR 60 ml/min/1.73sqm Normal [facility] ([place]) Comment on above: Result Comment: GFR Population mean for , Non- Americans Ages 20-29 = 116 mL/min/1.73 sq.m. Ages 30-39 = 107 mL/min/1.73 sq.m. Ages 40-49 = 99 mL/min/1.73 sq.m. Ages 50-59 = 93 mL/min/1.73 sq.m. Ages 60-69 = 85 mL/min/1.73 sq.m. Ages 70+ = 75 mL/min/1.73 sq.m. Chronic Kidney Disease: Less than 60 mL/min/1.73 square meters End Stage Renal Disease: Less than 15 mL/min/1.73 square meters Performed By: #### B MP, GFR, MG, ANEU, ADIFF, CBC #### [address] [address] GFR Non- 49 ml/min/1.73sqm Normal [facility] ([place]) Comment on above: Result Comment: GFR Population mean for , Non- Americans Ages 20-29 = 116 mL/min/1.73 sq.m. Ages 30-39 = 107 mL/min/1.73 sq.m. Ages 40-49 = 99 mL/min/1.73 sq.m. Ages 50-59 = 93 mL/min/1.73 sq.m. Ages 60-69 = 85 mL/min/1.73 sq.m. Ages 70+ = 75 mL/min/1.73 sq.m. Chronic Kidney Disease: Less than 60 mL/min/1.73 square meters End Stage Renal Disease: Less than 15 mL/min/1.73 square meters Performed By: #### B MP, GFR, MG, ANEU, ADIFF, CBC #### [address] [address] BMPon 04-18-2024 BUN/Creatinine Ratio 11 ratio Normal 7-27 [facility] ([place]) Comment on above: Performed By: #### B MP, GFR, MG, ANEU, ADIFF, CBC #### [address] [address] Calcium [Mass/Vol] 8.4 mg/dL Normal 8.4-10.2 [facility] ([place]) Comment on above: Performed By: #### B MP, GFR, MG, ANEU, ADIFF, CBC #### [address] [address] Chloride [Moles/Vol] 104 mmol/L Normal 98-107 [facility] ([place]) Comment on above: Performed By: #### B MP, GFR, MG, ANEU, ADIFF, CBC #### [address] [address] CO2 [Moles/Vol] 30 mmol/L High 22-29 [facility] ([place]) Comment on above: Performed By: #### B MP, GFR, MG, ANEU, ADIFF, CBC #### [address] [address] Creatinine [Mass/Vol] 1.14 mg/dL High 0.55-1.02 [facility] ([place]) Comment on above: Performed By: #### B MP, GFR, MG, ANEU, ADIFF, CBC #### [address] [address] Electrolyte Balance 3.0 mEq/L Low 4.0-15.0 [facility] ([place]) Comment on above: Performed By: #### B MP, GFR, MG, ANEU, ADIFF, CBC #### [address] [address] Glucose [Mass/Vol] 257 mg/dL High 70-105 [facility] ([place]) Comment on above: Performed By: #### B MP, GFR, MG, ANEU, ADIFF, CBC #### [address] [address] Potassium [Moles/Vol] 4.2 mmol/L Normal 3.5-5.1 [facility] ([place]) Comment on above: Performed By: #### B MP, GFR, MG, ANEU, ADIFF, CBC #### [address] [address] Sodium [Moles/Vol] 137 mmol/L Normal 136-145 [facility] ([place]) Comment on above: Performed By: #### B MP, GFR, MG, ANEU, ADIFF, CBC #### [address] [address] Urea nitrogen [Mass/Vol] 13 mg/dL Normal 7-18 [facility] ([place] Comment on above: Performed By: #### B MP, GFR, MG, ANEU, ADIFF, CBC #### [address] [address] LABORATORYOrdered By: Kavon Carrera on 04-18-2024 Blood Glucose Testing Reason Routine (04/18/24 7:54 AM) [facility] Work Phone: Glucose [Mass/Vol] 149 mg/dL High 70 - 110 mg/dL [facility] Work Phone: LABORATORYOrdered By: SYSTEM SYSTEM on 04-18-2024 Calcium [Mass/Vol] 8.4 mg/dL Normal 8.4 - 10. 2 mg/dL AO ADM SS Chloride [Moles/Vol] 104 mmol/L Normal 98 - 10 7 mmol/L AO ADM SS CO2 [Moles/Vol] 30 mmol/L High 22 - 29 mmol/L AO ADM SS Creatinine [Mass/Vol] 1.14 mg/dL High 0.55 - 1.02 mg/dL AO ADM SS Electrolyte Balance 3.0 mEq/L Low 4.0 - 15 .0 mEq/L AO ADM SS GFR/1.73 sq M.predicted among blacks MDRD (S/P/Bld) [Vol rate/Area] 60 ml/min/1.73sqm Invalid Interpretation Code AO Chemistry S Comment on above: Interpretive Data: GFR Population mean for , Non- Americans Ages 20-29 = 116 mL/min/1.73 sq.m. Ages 30-39 = 107 mL/min/1.73 sq.m. Ages 40-49 = 99 mL/min/1.73 sq.m. Ages 50-59 = 93 mL/min/1.73 sq.m. Ages 60-69 = 85 mL/min/1.73 sq.m. Ages 70+ = 75 mL/min/1.73 sq.m. Chronic Kidney Disease: Less than 60 mL/min/1.73 square meters End Stage Renal Disease: Less than 15 mL/min/1.73 square meters GFR/1.73 sq M.predicted among non-blacks MDRD (S/P/Bld) [Vol rate/Area] 49 ml/min/1.73sqm Invalid Interpretation Code AO Chemistry S Comment on above: Interpretive Data: GFR Population mean for , Non- Americans Ages 20-29 = 116 mL/min/1.73 sq.m. Ages 30-39 = 107 mL/min/1.73 sq.m. Ages 40-49 = 99 mL/min/1.73 sq.m. Ages 50-59 = 93 mL/min/1.73 sq.m. Ages 60-69 = 85 mL/min/1.73 sq.m. Ages 70+ = 75 mL/min/1.73 sq.m. Chronic Kidney Disease: Less than 60 mL/min/1.73 square meters End Stage Renal Disease: Less than 15 mL/min/1.73 square meters Glucose [Mass/Vol] 257 mg/dL High 70 - 105 mg/dL AO ADM SS Magnesium [Mass/Vol] 2.0 mg/dL Normal 1.8 - 2 .4 mg/dL AO ADM SS Potassium [Moles/Vol] 4.2 mmol/L Normal 3.5 - 5.1 mmol/L AO ADM SS Sodium [Moles/Vol] 137 mmol/L Normal 136 - 145 mmol/L AO ADM SS Urea nitrogen [Mass/Vol] 13 mg/dL Normal 7 - 18 mg/dL AO ADM SS Urea nitrogen/Creatinine [Mass ratio] 11 ratio Normal 7 - 27 ratio AO ADM SS MGon 04-18-2024 Magnesium [Mass/Vol] 2.0 mg/dL Normal 1.8-2.4 [facility] ([place] Comment on above: Performed By: #### B MP, GFR, MG, ANEU, ADIFF, CBC #### [address] [address] .Auto Diffon 04-17-2024 Basophil, Absolute 0.0 10 3/mcL Normal 0.0-0.2 [facility] ([place]) Comment on above: Performed By: #### A DIFF, MG, ANEU, BMP, CBC, GFR ####[facility] [place], [place] [address] Basophils/100 WBC (Bld) 0.7 % Normal 0.0-2.5 [facility] ([place]) Comment on above: Performed By: #### A DIFF, MG, ANEU, BMP, CBC, GFR ####[address] [place], [place] [address] Eosinophil, Absolute 0.2 10 3/mcL Normal 0.0-0.4 [facility] ([place] Comment on above: Performed By: #### A DIFF, MG, ANEU, BMP, CBC, GFR ####[facility] [place], [place] [address] Eosinophils/100 WBC (Bld) 3.3 % Normal 0.0-7.0 [facility] ([place]) Comment on above: Performed By: #### A DIFF, MG, ANEU, BMP, CBC, GFR ####[address], [place] [address] Lymphocyte, Absolute 1.8 10 3/mcL Normal 0.8-3.9 [facility] ([place]) Comment on above: Performed By: #### A DIFF, MG, ANEU, BMP, CBC, GFR ####[address], [place] [address] Lymphocytes/100 WBC (Bld) 31.2 % Normal 10.0-50.0 [facility] ([place]) Comment on above: Performed By: #### A DIFF, MG, ANEU, BMP, CBC, GFR ####[address] [place], [place] [address] Monocyte, Absolute 0.4 10 3/mcL Normal 0.2-1.0 [facility] ([place]) Comment on above: Performed By: #### A DIFF, MG, ANEU, BMP, CBC, GFR ####[address] [place], [place] [address] Monocytes/100 WBC (Bld) 6.8 % Normal 1.7-13.0 [facility] ([place]) Comment on above: Performed By: #### A DIFF, MG, ANEU, BMP, CBC, GFR ####Aranza [address] [place], [place] [address] Neutrophils/100 WBC (Bld) 58.0 % Normal 37.0-80.0 [facility] ([place]) Comment on above: Performed By: #### A DIFF, MG, ANEU, BMP, CBC, GFR ####Aranza [address] [place], [place] [address] .GFRon 04-17-2024 GFR 59 ml/min/1.73sqm Normal [facility] ([place]) Comment on above: Result Comment: GFR Population mean for , Non- Americans Ages 20-29 = 116 mL/min/1.73 sq.m. Ages 30-39 = 107 mL/min/1.73 sq.m. Ages 40-49 = 99 mL/min/1.73 sq.m. Ages 50-59 = 93 mL/min/1.73 sq.m. Ages 60-69 = 85 mL/min/1.73 sq.m. Ages 70+ = 75 mL/min/1.73 sq.m. Chronic Kidney Disease: Less than 60 mL/min/1.73 square meters End Stage Renal Disease: Less than 15 mL/min/1.73 square meters Performed By: #### A DIFF, MG, ANEU, BMP, CBC, GFR ####[address] [place], [place] [address] GFR Non- 48 ml/min/1.73sqm Normal [facility] ([place]) Comment on above: Result Comment: GFR Population mean for , Non- Americans Ages 20-29 = 116 mL/min/1.73 sq.m. Ages 30-39 = 107 mL/min/1.73 sq.m. Ages 40-49 = 99 mL/min/1.73 sq.m. Ages 50-59 = 93 mL/min/1.73 sq.m. Ages 60-69 = 85 mL/min/1.73 sq.m. Ages 70+ = 75 mL/min/1.73 sq.m. Chronic Kidney Disease: Less than 60 mL/min/1.73 square meters End Stage Renal Disease: Less than 15 mL/min/1.73 square meters Performed By: #### A DIFF, MG, ANEU, BMP, CBC, GFR ####Ar[address] [place], [place] [address] .NEUABSon 04-17-2024 Neutrophil, Absolute 3.4 10 3/mcL Normal 2.9-6.2 [facility] ([place]) Comment on above: Performed By: #### A DIFF, MG, ANEU, BMP, CBC, GFR ####[address] [place], [place] [address] BMPon 04-17-2024 BUN/Creatinine Ratio 13 ratio Normal 7-27 [facility] ([place]) Comment on above: Performed By: #### A DIFF, MG, ANEU, BMP, CBC, GFR ####[address] [place], [place] [address] Calcium [Mass/Vol] 8.6 mg/dL Normal 8.4-10.2 [facility] ([place]) Comment on above: Performed By: #### A DIFF, MG, ANEU, BMP, CBC, GFR ####[address] [place], [place] [address] Chloride [Moles/Vol] 104 mmol/L Normal 98-107 [facility] ([place]) Comment on above: Performed By: #### A DIFF, MG, ANEU, BMP, CBC, GFR ####[address] [place], [place] [address] CO2 [Moles/Vol] 29 mmol/L Normal 22-29 [facility] ([place]) Comment on above: Performed By: #### A DIFF, MG, ANEU, BMP, CBC, GFR ####[address] [place], [place] [address] Creatinine [Mass/Vol] 1.16 mg/dL High 0.55-1.02 [facility] ([place]) Comment on above: Performed By: #### A DIFF, MG, ANEU, BMP, CBC, GFR ####[address] [place], [place] [address] Electrolyte Balance 6.0 mEq/L Normal 4.0-15.0 [facility] ([place]) Comment on above: Performed By: #### A DIFF, MG, ANEU, BMP, CBC, GFR ####[address] [place], [place] [address] Glucose [Mass/Vol] 144 mg/dL High 70-105 [facility] ([place]) Comment on above: Performed By: #### A DIFF, MG, ANEU, BMP, CBC, GFR ####[address] [place], [place] [address] Potassium [Moles/Vol] 4.4 mmol/L Normal 3.5-5.1 [facility] ([place]) Comment on above: Performed By: #### A DIFF, MG, ANEU, BMP, CBC, GFR ####[address] [place], [place] [address] Sodium [Moles/Vol] 139 mmol/L Normal 136-145 [facility] ([place]) Comment on above: Performed By: #### A DIFF, MG, ANEU, BMP, CBC, GFR ####[address] [place], [place] [address] Urea nitrogen [Mass/Vol] 15 mg/dL Normal 7-18 [facility] ([place]) Comment on above: Performed By: #### A DIFF, MG, ANEU, BMP, CBC, GFR ####[address] [place], [place] [address] CBCon 04-17-2024 Erythrocyte distribution width (RBC) [Ratio] 14.0 % Normal 11.5-14.5 [facility] ([place]) Comment on above: Performed By: #### A DIFF, MG, ANEU, BMP, CBC, GFR ####[address] [place], [place] [address] Hematocrit (Bld) [Volume fraction] 36.8 % Low 37.0-47.0 [facility] ([place]) Comment on above: Performed By: #### A DIFF, MG, ANEU, BMP, CBC, GFR ####[address] [place], [place] [address] Hgb 12.4 G/dL Normal 12.0-16.0 [facility] ([place]) Comment on above: Performed By: #### A DIFF, MG, ANEU, BMP, CBC, GFR ####[address] [place], [place] [address] MCH (RBC) [Entitic mass] 31.0 pg Normal 27.0-31.2 [facility] ([place]) Comment on above: Performed By: #### A DIFF, MG, ANEU, BMP, CBC, GFR ####Ar[address] [place], [place] [address] MCHC 33.8 G/dL Normal 33.0-37.0 [facility] ([place]) Comment on above: Performed By: #### A DIFF, MG, ANEU, BMP, CBC, GFR ####Aranza [address] [place], [place] [address] MCV (RBC) [Entitic vol] 91.7 fL Normal 80.0-94.0 [facility] ([place]) Comment on above: Performed By: #### A DIFF, MG, ANEU, BMP, CBC, GFR ####[address] [place], [place] [address] Platelet 91 10 3/mcL Low 130-400 [facility] ([place]) Comment on above: Performed By: #### A DIFF, MG, ANEU, BMP, CBC, GFR ####[address] [place], [place] [address] Platelet mean volume (Bld) [Entitic vol] 8.8 fL Normal 7.4-10.4 [facility] ([place]) Comment on above: Performed By: #### A DIFF, MG, ANEU, BMP, CBC, GFR ####[address] [place], [place] [address] RBC 4.01 10 6/mcL Low 4.20-5.40 [facility] ([place]) Comment on above: Performed By: #### A DIFF, MG, ANEU, BMP, CBC, GFR ####[address] [place], [place] [address] WBC 5.9 10 3/mcL Normal 4.6-10.8 [facility] ([place]) Comment on above: Performed By: #### A DIFF, MG, ANEU, BMP, CBC, GFR ####[address] [place], [place] [address] LABORATORYOrdered By: Dian Payne on 04-17-2024 Blood Glucose Testing Reason Routine (04/17/24 8:52 PM) [facility] Work Phone: Glucose [Mass/Vol] 254 mg/dL High 70 - 110 mg/dL [facility] Work Phone: LABORATORYOrdered By: Kavon Carrera on 04-17-2024 Blood Glucose Testing Reason Routine (04/17/24 4:45 PM) [facility] Work Phone: Glucose [Mass/Vol] 275 mg/dL High 70 - 110 mg/dL [facility] Work Phone: LABORATORYOrdered By: SYSTEM SYSTEM on 04-17-2024 Basophil, Absolute 0.0 103/mcL Normal 0.0 - 0.2 10^3/mcL AO Workflow SS Basophils/100 WBC (Bld) 0.7 % Normal 0.0 - 2.5 % AO Workflow SS Calcium [Mass/Vol] 8.6 mg/dL Normal 8.4 - 10. 2 mg/dL AO ADM SS Chloride [Moles/Vol] 104 mmol/L Normal 98 - 10 7 mmol/L AO ADM SS CO2 [Moles/Vol] 29 mmol/L Normal 22 - 29 mmol/L AO ADM SS Creatinine [Mass/Vol] 1.16 mg/dL High 0.55 - 1.02 mg/dL AO ADM SS Electrolyte Balance 6.0 mEq/L Normal 4.0 - 15 .0 mEq/L AO ADM SS Eosinophil, Absolute 0.2 103/mcL Normal 0.0 - 0 .4 10^3/mcL AO Workflow SS Eosinophils/100 WBC (Bld) 3.3 % Normal 0.0 - 7.0 % AO Workflow SS Erythrocyte distribution width (RBC) [Ratio] 14.0 % Normal 11.5 - 14.5 % AO Workflow SS GFR/1.73 sq M.predicted among blacks MDRD (S/P/Bld) [Vol rate/Area] 59 ml/min/1.73sqm Invalid Interpretation Code AO Chemistry S Comment on above: Interpretive Data: GFR Population mean for , Non- Americans Ages 20-29 = 116 mL/min/1.73 sq.m. Ages 30-39 = 107 mL/min/1.73 sq.m. Ages 40-49 = 99 mL/min/1.73 sq.m. Ages 50-59 = 93 mL/min/1.73 sq.m. Ages 60-69 = 85 mL/min/1.73 sq.m. Ages 70+ = 75 mL/min/1.73 sq.m. Chronic Kidney Disease: Less than 60 mL/min/1.73 square meters End Stage Renal Disease: Less than 15 mL/min/1.73 square meters GFR/1.73 sq M.predicted among non-blacks MDRD (S/P/Bld) [Vol rate/Area] 48 ml/min/1.73sqm Invalid Interpretation Code AO Chemistry S Comment on above: Interpretive Data: GFR Population mean for , Non- Americans Ages 20-29 = 116 mL/min/1.73 sq.m. Ages 30-39 = 107 mL/min/1.73 sq.m. Ages 40-49 = 99 mL/min/1.73 sq.m. Ages 50-59 = 93 mL/min/1.73 sq.m. Ages 60-69 = 85 mL/min/1.73 sq.m. Ages 70+ = 75 mL/min/1.73 sq.m. Chronic Kidney Disease: Less than 60 mL/min/1.73 square meters End Stage Renal Disease: Less than 15 mL/min/1.73 square meters Glucose [Mass/Vol] 144 mg/dL High 70 - 105 mg/dL AO ADM SS Hematocrit (Bld) [Volume fraction] 36.8 % Low 37.0 - 47.0 % AO Workflow SS Hemoglobin (Bld) [Mass/Vol] 12.4 G/dL Normal 12.0 - 16.0 G/dL AO Workflow SS Lymphocyte, Absolute 1.8 103/mcL Normal 0.8 - 3 .9 10^3/mcL AO Workflow SS Lymphocytes/100 WBC (Bld) 31.2 % Normal 10.0 - 50.0 % AO Workflow SS Magnesium [Mass/Vol] 1.9 mg/dL Normal 1.8 - 2 .4 mg/dL AO ADM SS MCH (RBC) [Entitic mass] 31.0 pg Normal 27.0 - 31.2 pg AO Workflow SS MCHC 33.8 G/dL Normal 33.0 - 37.0 G/dL AO Workflow SS MCV (RBC) [Entitic vol] 91.7 fL Normal 80.0 - 94.0 fL AO Workflow SS Monocyte, Absolute 0.4 103/mcL Normal 0.2 - 1.0 10^3/mcL AO Workflow SS Monocytes/100 WBC (Bld) 6.8 % Normal 1.7 - 13.0 % AO Workflow SS Neutrophil, Absolute 3.4 103/mcL Normal 2.9 - 6 .2 10^3/mcL AO Workflow SS Neutrophils/100 WBC (Bld) 58.0 % Normal 37.0 - 80.0 % AO Workflow SS Platelet mean volume (Bld) [Entitic vol] 8.8 fL Normal 7.4 - 10.4 fL AO Workflow SS Platelets (Bld) [#/Vol] 91 103/mcL Low 130 - 400 10^3/mcL AO Workflow SS Potassium [Moles/Vol] 4.4 mmol/L Normal 3.5 - 5.1 mmol/L AO ADM SS RBC (Bld) [#/Vol] 4.01 106/mcL Low 4.20 - 5.4 0 10^6/mcL AO Workflow SS Sodium [Moles/Vol] 139 mmol/L Normal 136 - 145 mmol/L AO ADM SS Urea nitrogen [Mass/Vol] 15 mg/dL Normal 7 - 18 mg/dL AO ADM SS Urea nitrogen/Creatinine [Mass ratio] 13 ratio Normal 7 - 27 ratio AO ADM SS WBC (Bld) [#/Vol] 5.9 103/mcL Normal 4.6 - 10.8 10^3/mcL AO Workflow SS MGon 04-17-2024 Magnesium [Mass/Vol] 1.9 mg/dL Normal 1.8-2.4 [facility] ([place] Comment on above: Performed By: #### A DIFF, MG, ANEU, BMP, CBC, GFR ####[address] [address] .Auto Diffon 04-16-2024 Basophil, Absolute 0.1 10 3/mcL Normal 0.0-0.2 [facility] ([place]) Comment on above: Performed By: #### A ALEKS DANG, GFR, ADIFF, BMP, CBC #### [address] [address] Basophils/100 WBC (Bld) 0.9 % Normal 0.0-2.5 A [facility] ([place]) Comment on above: Performed By: #### A ALEKS DANG, GFR, ADIFF, BMP, CBC #### [address] [address] Eosinophil, Absolute 0.2 10 3/mcL Normal 0.0-0.4 [facility] ([place] Comment on above: Performed By: #### A ALEKS DANG, GFR, ADIFF, BMP, CBC #### [address] [address] Eosinophils/100 WBC (Bld) 2.4 % Normal 0.0-7.0 [facility] ([place]) Comment on above: Performed By: #### A ALEKS DANG, GFR, ADIFF, BMP, CBC #### [address] [address] Lymphocyte, Absolute 2.7 10 3/mcL Normal 0.8-3.9 [facility] ([place]) Comment on above: Performed By: #### A ALEKS DANG, GFR, ADIFF, BMP, CBC #### [address] [address] Lymphocytes/100 WBC (Bld) 31.9 % Normal 10.0-50.0 [facility] ([place]) Comment on above: Performed By: #### A ALEKS DANG, GFR, ADIFF, BMP, CBC #### [address] [address] Monocyte, Absolute 0.5 10 3/mcL Normal 0.2-1.0 [facility] ([place] Comment on above: Performed By: #### A ALEKS DANG, GFR, ADIFF, BMP, CBC #### [address] [address] Monocytes/100 WBC (Bld) 6.1 % Normal 1.7-13.0 [facility] ([place]) Comment on above: Performed By: #### A ALEKS DANG, GFR, ADIFF, BMP, CBC #### [address] [address] Neutrophils/100 WBC (Bld) 58.7 % Normal 37.0-80.0 [facility] ([place]) Comment on above: Performed By: #### A ALEKS DANG, GFR, ADIFF, BMP, CBC #### [address] [address] .GFRon 04-16-2024 GFR 78 ml/min/1.73sqm Normal [facility] ([place]) Comment on above: Result Comment: GFR Population mean for , Non- Americans Ages 20-29 = 116 mL/min/1.73 sq.m. Ages 30-39 = 107 mL/min/1.73 sq.m. Ages 40-49 = 99 mL/min/1.73 sq.m. Ages 50-59 = 93 mL/min/1.73 sq.m. Ages 60-69 = 85 mL/min/1.73 sq.m. Ages 70+ = 75 mL/min/1.73 sq.m. Chronic Kidney Disease: Less than 60 mL/min/1.73 square meters End Stage Renal Disease: Less than 15 mL/min/1.73 square meters Performed By: #### A ALEKS DANG, GFR, ADIFF, BMP, CBC #### [address] [address] GFR Non- 64 ml/min/1.73sqm Normal [facility] ([place]) Comment on above: Result Comment: GFR Population mean for , Non- Americans Ages 20-29 = 116 mL/min/1.73 sq.m. Ages 30-39 = 107 mL/min/1.73 sq.m. Ages 40-49 = 99 mL/min/1.73 sq.m. Ages 50-59 = 93 mL/min/1.73 sq.m. Ages 60-69 = 85 mL/min/1.73 sq.m. Ages 70+ = 75 mL/min/1.73 sq.m. Chronic Kidney Disease: Less than 60 mL/min/1.73 square meters End Stage Renal Disease: Less than 15 mL/min/1.73 square meters Performed By: #### A ALEKS DANG, GFR, ADIFF, BMP, CBC #### Aranza [address] [address] .MDWon 04-16-2024 Monocyte Distribution Width 17.20 Normal 0.00-20.00 [facility] ([place]) Comment on above: Result Comment: For ED adult patients suspected of sepsis, MDW<=20.0 does not rule out sepsis or risk of sepsis Performed By: #### A ALEKS DANG, GFR, ADIFF, BMP, CBC #### [address] [address] .NEUABSon 04-16-2024 Neutrophil, Absolute 5.0 10 3/mcL Normal 2.9-6.2 [facility] ([place] Comment on above: Performed By: #### A ALEKS DANG, GFR, ADIFF, BMP, CBC #### [place] [id number] CBCon 04-16-2024 Erythrocyte distribution width (RBC) [Ratio] 13.9 % Normal 11.5-14.5 [facility] ([place]) Comment on above: Performed By: #### A ALEKS DANG, GFR, ADIFF, BMP, CBC #### [place] [address] Hematocrit (Bld) [Volume fraction] 41.2 % Normal 37.0-47.0 [facility] ([place] Comment on above: Performed By: #### A ALEKS DANG, GFR, ADIFF, BMP, CBC #### [place] [address] Hgb 14.3 G/dL Normal 12.0-16.0 [facility] ([place] Comment on above: Performed By: #### A ALEKS DANG, GFR, ADIFF, BMP, CBC #### [place] [address] MCH (RBC) [Entitic mass] 31.1 pg Normal 27.0-31.2 [facility] ([place] Comment on above: Performed By: #### A ALEKS DANG, GFR, ADIFF, BMP, CBC #### [place] [address] MCHC 34.6 G/dL Normal 33.0-37.0 [facility] ([place] Comment on above: Performed By: #### A ALEKS DANG, GFR, ADIFF, BMP, CBC #### [place] [address] MCV (RBC) [Entitic vol] 90.0 fL Normal 80.0-94.0 [facility] ([place]) Comment on above: Performed By: #### A ALEKS DANG, GFR, ADIFF, BMP, CBC #### [address] [address] Platelet 129 10 3/mcL Low 130-400 [facility] ([place] Comment on above: Performed By: #### A ALEKS DANG, GFR, ADIFF, BMP, CBC #### [address] [address] Platelet mean volume (Bld) [Entitic vol] 8.2 fL Normal 7.4-10.4 [facility] ([place] Comment on above: Performed By: #### A ALEKS DANG, GFR, ADIFF, BMP, CBC #### [address] [address] RBC 4.58 10 6/mcL Normal 4.20-5.40 [facility] ([place] Comment on above: Performed By: #### A ALEKS DANG, GFR, ADIFF, BMP, CBC #### [address] [address] WBC 8.5 10 3/mcL Normal 4.6-10.8 [facility] ([place]) Comment on above: Performed By: #### A ALEKS DANG, GFR, ADIFF, BMP, CBC #### [address] [address] CMPon 04-16-2024 Albumin Level 3.4 G/dL Low 3.5-5.0 [facility] ([place] Comment on above: Performed By: #### A ALEKS DANG, GFR, ADIFF, BMP, CBC #### [address] [address] Albumin/Globulin [Mass ratio] 0.7 {ratio} Low 1.1-2.5 [facility] ([place] Comment on above: Performed By: #### A ALEKS DANG, GFR, ADIFF, BMP, CBC #### [address] [address] ALP [Catalytic activity/Vol] 87 U/L Normal 40-135 [facility] ([place] Comment on above: Performed By: #### A ALEKS DANG, GFR, ADIFF, BMP, CBC #### [address] [address] ALT [Catalytic activity/Vol] 21 U/L Normal 14-59 [facility] ([place] Comment on above: Performed By: #### A ALEKS DANG, GFR, ADIFF, BMP, CBC #### [address] [address] AST [Catalytic activity/Vol] 18 U/L Normal 10-40 [facility] ([place] Comment on above: Performed By: #### A ALEKS DANG, GFR, ADIFF, BMP, CBC #### [address] [address] Bili Total 0.6 mg/dL Normal 0.2-1.0 [facility] ([place]) Comment on above: Result Comment: Use of this assay is not recommended for patients undergoing treatment with eltrombopag due to the potential for falsely elevated results. Performed By: #### A ALEKS DANG, GFR, ADIFF, BMP, CBC #### [address] [address] BUN/Creatinine Ratio 11 ratio Normal 7-27 [facility] ([place] Comment on above: Performed By: #### A ALEKS DANG, GFR, ADIFF, BMP, CBC #### [address] [address] Calcium [Mass/Vol] 8.8 mg/dL Normal 8.4-10.2 [facility] ([place]) Comment on above: Performed By: #### A ALEKS DANG, GFR, ADIFF, BMP, CBC #### [address] [address] Chloride [Moles/Vol] 102 mmol/L Normal 98-107 [facility] ([place] Comment on above: Performed By: #### A ALEKS DANG, GFR, ADIFF, BMP, CBC #### [address] [address] CO2 [Moles/Vol] 25 mmol/L Normal 22-29 [facility] ([place]) Comment on above: Performed By: #### A ALEKS DANG, GFR, ADIFF, BMP, CBC #### [address] [address] Creatinine [Mass/Vol] 0.91 mg/dL Normal 0.55-1.02 [facility] ([place]) Comment on above: Performed By: #### A ALEKS DANG, GFR, ADIFF, BMP, CBC #### [address] [address] Electrolyte Balance 9.0 mEq/L Normal 4.0-15.0 [facility] ([place]) Comment on above: Performed By: #### A ALEKS DANG, GFR, ADIFF, BMP, CBC #### [address] [address] Globulin 4.8 G/dL Normal [facility] ([place] Comment on above: Performed By: #### A ALEKS DANG, GFR, ADIFF, BMP, CBC #### [address] [address] Glucose [Mass/Vol] 105 mg/dL Normal 70-105 [facility] ([place]) Comment on above: Performed By: #### A ALEKS DANG, GFR, ADIFF, BMP, CBC #### [address] [address] Potassium [Moles/Vol] 4.1 mmol/L Normal 3.5-5.1 [facility] ([place]) Comment on above: Performed By: #### A ALEKS DANG, GFR, ADIFF, BMP, CBC #### [address] [address] Sodium [Moles/Vol] 136 mmol/L Normal 136-145 [facility] ([place]) Comment on above: Performed By: #### A ALEKS DANG, GFR, ADIFF, BMP, CBC #### [address] [address] Total Protein 8.2 G/dL Normal 6.4-8.2 [facility] ([place]) Comment on above: Performed By: #### A ALEKS DANG, GFR, ADIFF, BMP, CBC #### Aranza [place] [address] [place], [place] [address] Urea nitrogen [Mass/Vol] 10 mg/dL Normal 7-18 [facility] ([place]) Comment on above: Performed By: #### ALEKS RYAN, GFR, ADIFF, BMP, CBC #### Aranza [place] [address] [place], [place] [address] CT ABD/PELVIS W/ IV CONTRAST ONLYon 04-16-2024 CT ABD/PELVIS W/ IV CONTRAST ONLY ORIGINAL HISTORY: Neck pain, history of pyelonephritis COMPARISON: 12 August 2023 TECHNIQUE: CT of the Abdomen and Pelvis following uncomplicated administration of intravenous contrast, with sagittal and coronal reconstructions. This exam was performed according to our departmental dose optimization program, and includes the following measures where applicable: automated exposure control, adjustment of the mAs and/or kVp according to patient size and/or exam, and an iterative reconstruction algorithm. 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 The liver is small with a somewhat nodular outline. The left kidney is smaller than its right counterpart, with scarring and mildly diminished relative enhancement. The remaining abdominal organs are unremarkable in appearance. Bowel is poorly evaluated in the absence of oral contrast. A normal appendix is identified. There is no free fluid. IMPRESSION: Interval resolution of previously seen left renal edema and associated inflammatory changes; there is scarring and mildly diminished enhancement relative to the right. Otherwise, no significant interval change. Interpreted by: Radhika Corona MD Preliminary Report By: Radhika Corona MD Electronically signed By Radhika Corona MD Dictated Date: 04/16/2024 11:36:57 AM Prelim Date: 04/16/2024 11:51:57 AM Sign Date: 04/16/2024 11:51:57 AM Ordering Provider: SILVINO ALFONSO [facility] ([place]) LABORATORYOrdered By: SYSTEM SYSTEM on 04-16-2024 Albumin BCP dye [Mass/Vol] 3.4 G/dL Low 3.5 - 5.0 G/dL AO ADM SS Albumin/Globulin [Mass ratio] 0.7 {ratio} Low 1.1 - 2.5 ratio AO ADM SS ALP [Catalytic activity/Vol] 87 U/L Normal 40 - 135 U/L AO ADM SS ALT With P-5'-P [Catalytic activity/Vol] 21 U/L Normal 14 - 59 U/L AO ADM SS AST With P-5'-P [Catalytic activity/Vol] 18 U/L Normal 10 - 40 U/L AO ADM SS Basophil, Absolute 0.1 103/mcL Normal 0.0 - 0.2 10^3/mcL AO Workflow SS Basophils/100 WBC (Bld) 0.9 % Normal 0.0 - 2.5 % AO Workflow SS Bilirubin [Mass/Vol] 0.6 mg/dL Normal 0.2 - 1 .0 mg/dL AO ADM SS Comment on above: Interpretive Data: U se of this assay is not recommended for patients undergoing treatment with eltrombopag due to the potential for falsely elevated results. Calcium [Mass/Vol] 8.8 mg/dL Normal 8.4 - 10. 2 mg/dL AO ADM SS Chloride [Moles/Vol] 102 mmol/L Normal 98 - 10 7 mmol/L AO ADM SS CO2 [Moles/Vol] 25 mmol/L Normal 22 - 29 mmol/L AO ADM SS Creatinine [Mass/Vol] 0.91 mg/dL Normal 0.55 - 1.02 mg/dL AO ADM SS Electrolyte Balance 9.0 mEq/L Normal 4.0 - 15 .0 mEq/L AO ADM SS Eosinophil, Absolute 0.2 103/mcL Normal 0.0 - 0 .4 10^3/mcL AO Workflow SS Eosinophils/100 WBC (Bld) 2.4 % Normal 0.0 - 7.0 % AO Workflow SS Erythrocyte distribution width (RBC) [Ratio] 13.9 % Normal 11.5 - 14.5 % AO Workflow SS GFR/1.73 sq M.predicted among blacks MDRD (S/P/Bld) [Vol rate/Area] 78 ml/min/1.73sqm Invalid Interpretation Code AO Chemistry S Comment on above: Interpretive Data: GFR Population mean for , Non- Americans Ages 20-29 = 116 mL/min/1.73 sq.m. Ages 30-39 = 107 mL/min/1.73 sq.m. Ages 40-49 = 99 mL/min/1.73 sq.m. Ages 50-59 = 93 mL/min/1.73 sq.m. Ages 60-69 = 85 mL/min/1.73 sq.m. Ages 70+ = 75 mL/min/1.73 sq.m. Chronic Kidney Disease: Less than 60 mL/min/1.73 square meters End Stage Renal Disease: Less than 15 mL/min/1.73 square meters GFR/1.73 sq M.predicted among non-blacks MDRD (S/P/Bld) [Vol rate/Area] 64 ml/min/1.73sqm Invalid Interpretation Code AO Chemistry S Comment on above: Interpretive Data: GFR Population mean for , Non- Americans Ages 20-29 = 116 mL/min/1.73 sq.m. Ages 30-39 = 107 mL/min/1.73 sq.m. Ages 40-49 = 99 mL/min/1.73 sq.m. Ages 50-59 = 93 mL/min/1.73 sq.m. Ages 60-69 = 85 mL/min/1.73 sq.m. Ages 70+ = 75 mL/min/1.73 sq.m. Chronic Kidney Disease: Less than 60 mL/min/1.73 square meters End Stage Renal Disease: Less than 15 mL/min/1.73 square meters Globulin 4.8 G/dL Invalid Interpretation Code AO ADM SS Glucose [Mass/Vol] 105 mg/dL Normal 70 - 105 mg/dL AO ADM SS Hematocrit (Bld) [Volume fraction] 41.2 % Normal 37.0 - 47.0 % AO Workflow SS Hemoglobin (Bld) [Mass/Vol] 14.3 G/dL Normal 12.0 - 16.0 G/dL AO Workflow SS Lipase [Catalytic activity/Vol] 38 U/L Normal 16 - 77 U/L AO ADM SS Lymphocyte, Absolute 2.7 103/mcL Normal 0.8 - 3 .9 10^3/mcL AO Workflow SS Lymphocytes/100 WBC (Bld) 31.9 % Normal 10.0 - 50.0 % AO Workflow SS MCH (RBC) [Entitic mass] 31.1 pg Normal 27.0 - 31.2 pg AO Workflow SS MCHC 34.6 G/dL Normal 33.0 - 37.0 G/dL AO Workflow SS MCV (RBC) [Entitic vol] 90.0 fL Normal 80.0 - 94.0 fL AO Workflow SS Monocyte distribution width Auto (Bld) [Entitic vol] 17.20 1 Normal 0.00 - 20.00 AO Workflow SS Comment on above: Result Comment: For ED adult patients suspected of sepsis, MDW<=20.0 does not rule out sepsis or risk of sepsis Monocyte, Absolute 0.5 103/mcL Normal 0.2 - 1.0 10^3/mcL AO Workflow SS Monocytes/100 WBC (Bld) 6.1 % Normal 1.7 - 13.0 % AO Workflow SS Neutrophil, Absolute 5.0 103/mcL Normal 2.9 - 6 .2 10^3/mcL AO Workflow SS Neutrophils/100 WBC (Bld) 58.7 % Normal 37.0 - 80.0 % AO Workflow SS Platelet mean volume (Bld) [Entitic vol] 8.2 fL Normal 7.4 - 10.4 fL AO Workflow SS Platelets (Bld) [#/Vol] 129 103/mcL Low 130 - 400 10^3/mcL AO Workflow SS Potassium [Moles/Vol] 4.1 mmol/L Normal 3.5 - 5.1 mmol/L AO ADM SS Protein [Mass/Vol] 8.2 G/dL Normal 6.4 - 8.2 G/dL AO ADM SS RBC (Bld) [#/Vol] 4.58 106/mcL Normal 4.20 - 5.4 0 10^6/mcL AO Workflow SS Sodium [Moles/Vol] 136 mmol/L Normal 136 - 145 mmol/L AO ADM SS Urea nitrogen [Mass/Vol] 10 mg/dL Normal 7 - 18 mg/dL AO ADM SS Urea nitrogen/Creatinine [Mass ratio] 11 ratio Normal 7 - 27 ratio AO ADM SS WBC (Bld) [#/Vol] 8.5 103/mcL Normal 4.6 - 10.8 10^3/mcL AO Workflow SS LABORATORYOrdered By: Casimiro Jeffries on 04-16-2024 Appearance (U) Clear (04/16/24 10:42 AM) Normal Clear AO Auto Urine SS Bilirubin Ql (U) Negative (04/16/24 10:42 AM) Normal Negative AO Auto Urine SS Color (U) Yellow (04/16/24 10:42 AM) Normal AO Auto Urine SS Glucose Test strip (U) [Mass/Vol] Negative Normal Negative AO Auto Urine SS Hemoglobin Auto test strip (U) [Mass/Vol] Trace *ABN* (04/16/24 10:42 AM) Invalid Interpretation Code Negative AO Auto Urine SS Ketones Ql (U) Negative Normal Negative AO Auto Urine SS UA Leuk Est Negative (04/16/24 10:42 AM) Normal Negative AO Auto Urine SS UA Nitrite Negative (04/16/24 10:42 AM) Normal Negative AO Auto Urine SS UA pH 5.5 (04/16/24 10:42 AM) Normal 5.0 - 8.0 AO Auto Urine SS UA Protein Negative Normal Negative AO Auto Urine SS UA Spec Grav <=1.005 *ABN* (04/16/24 10:42 AM) Invalid Interpretation Code 1.015-1.025 AO Auto Urine SS UA Specimen Type Clean Catch (04/16/24 10:42 AM) Normal AO Auto Urine SS UA Urobilinogen 0.2 E.U./dL Normal 0.2-1.0 AO Auto Urine SS LIPon 04-16-2024 Lipase Level 38 U/L Normal 16-77 [facility] ([place]) Comment on above: Performed By: #### A ALEKS DANG, GFR, ADIFF, BMP, CBC #### [facility] [address] [place], [place] [address] No Panel Informationon 04-16 Culture Urine 10,000 - 50,000 cfu/ ml Mixed growth consistent with normal urogenital madeleine. [facility] Work Phone: UAon 04-16-2024 Color (U) Yellow Normal [facility] ([place]) Comment on above: Performed By: #### B MP, GFR, MG, ANEU, ADIFF, CBC #### [address] [address] Glucose (U) [Mass/Vol] Negative Normal Negative [facility] ([place]) Comment on above: Performed By: #### B MP, GFR, MG, ANEU, ADIFF, CBC #### [address] [address] Ketones Ql (U) Negative Normal Negative [facility] ([place]) Comment on above: Performed By: #### B MP, GFR, MG, ANEU, ADIFF, CBC #### [address] [address] UA Appear Clear Normal Clear [facility] ([place]) Comment on above: Performed By: #### B MP, GFR, MG, ANEU, ADIFF, CBC #### [address] [address] UA Blood Trace Abnormal Negative [facility] ([place]) Comment on above: Performed By: #### B MP, GFR, MG, ANEU, ADIFF, CBC #### [address] [address] UA Leuk Est Negative Normal Negative [facility] ([place]) Comment on above: Performed By: #### B MP, GFR, MG, ANEU, ADIFF, CBC #### [address] [address] UA Nitrite Negative Normal Negative [facility] ([place] Comment on above: Performed By: #### B MP, GFR, MG, ANEU, ADIFF, CBC #### [address] [address] UA pH 5.5 Normal 5.0 - 8.0 [facility] ([place]) Comment on above: Performed By: #### B MP, GFR, MG, ANEU, ADIFF, CBC #### [address] [address] UA Protein Negative Normal Negative [facility] ([place] Comment on above: Performed By: #### B MP, GFR, MG, ANEU, ADIFF, CBC #### [address] [address] UA Spec Grav <=1.005 Abnormal 1.015-1.025 [facility] ([place]) Comment on above: Performed By: #### B MP, GFR, MG, ANEU, ADIFF, CBC #### [address] [address] UA Specimen Type Clean Catch Normal [facility] ([place]) Comment on above: Performed By: #### B MP, GFR, MG, ANEU, ADIFF, CBC #### [address] [address] UA Urobilinogen 0.2 E.U./dL Normal 0.2-1.0 [facility] ([place]) Comment on above: Performed By: #### B MP, GFR, MG, ANEU, ADIFF, CBC #### [address] [address] Urobilinogen (U) [Mass/Vol] Negative Normal Negative [facility] ([place]) Comment on above: Performed By: #### B MP, GFR, MG, ANEU, ADIFF, CBC #### [address] [address] .Auto Diffon 03-31-2024 Basophil, Absolute 0.1 10 3/mcL Normal 0.0-0.2 [facility] ([place]) Comment on above: Performed By: #### A ALEKS DANG, GFR, ADIFF, BMP, CBC #### [address] [address] Basophils/100 WBC (Bld) 0.6 % Normal 0.0-2.5 A [facility] ([place]) Comment on above: Performed By: #### A ALEKS DANG, GFR, ADIFF, BMP, CBC #### [address] [address] Eosinophil, Absolute 0.1 10 3/mcL Normal 0.0-0.4 [facility] ([place] Comment on above: Performed By: #### A ALEKS DANG, GFR, ADIFF, BMP, CBC #### [address] [address] Eosinophils/100 WBC (Bld) 1.5 % Normal 0.0-7.0 [facility] ([place] Comment on above: Performed By: #### A ALEKS DANG, GFR, ADIFF, BMP, CBC #### [address] [address] Lymphocyte, Absolute 2.1 10 3/mcL Normal 0.8-3.9 [facility] ([place] Comment on above: Performed By: #### A ALEKS DANG, GFR, ADIFF, BMP, CBC #### [address] [address] Lymphocytes/100 WBC (Bld) 24.1 % Normal 10.0-50.0 [facility] ([place]) Comment on above: Performed By: #### A ALEKS DANG, GFR, ADIFF, BMP, CBC #### [address] [address] Monocyte, Absolute 0.4 10 3/mcL Normal 0.2-1.0 [facility] ([place] Comment on above: Performed By: #### A ALEKS DANG, GFR, ADIFF, BMP, CBC #### [address] [address] Monocytes/100 WBC (Bld) 5.2 % Normal 1.7-13.0 [facility] ([place]) Comment on above: Performed By: #### A ALEKS DANG, GFR, ADIFF, BMP, CBC #### [address] [address] Neutrophils/100 WBC (Bld) 68.6 % Normal 37.0-80.0 [facility] ([place] Comment on above: Performed By: #### A ALEKS DANG, GFR, ADIFF, BMP, CBC #### [address] [address] .GFRon 03-31-2024 GFR 62 ml/min/1.73sqm Normal [facility] ([place]) Comment on above: Result Comment: GFR Population mean for , Non- Americans Ages 20-29 = 116 mL/min/1.73 sq.m. Ages 30-39 = 107 mL/min/1.73 sq.m. Ages 40-49 = 99 mL/min/1.73 sq.m. Ages 50-59 = 93 mL/min/1.73 sq.m. Ages 60-69 = 85 mL/min/1.73 sq.m. Ages 70+ = 75 mL/min/1.73 sq.m. Chronic Kidney Disease: Less than 60 mL/min/1.73 square meters End Stage Renal Disease: Less than 15 mL/min/1.73 square meters Performed By: #### A ALEKS DANG, GFR, ADIFF, BMP, CBC ####[address] [address] GFR Non- 51 ml/min/1.73sqm Normal [facility] ([place]) Comment on above: Result Comment: GFR Population mean for , Non- Americans Ages 20-29 = 116 mL/min/1.73 sq.m. Ages 30-39 = 107 mL/min/1.73 sq.m. Ages 40-49 = 99 mL/min/1.73 sq.m. Ages 50-59 = 93 mL/min/1.73 sq.m. Ages 60-69 = 85 mL/min/1.73 sq.m. Ages 70+ = 75 mL/min/1.73 sq.m. Chronic Kidney Disease: Less than 60 mL/min/1.73 square meters End Stage Renal Disease: Less than 15 mL/min/1.73 square meters Performed By: #### A ALEKS DANG, GFR, ADIFF, BMP, CBC ####[address] [place] [address] .MDWon 03-31-2024 Monocyte Distribution Width 15.31 Normal 0.00-20.00 [facility] ([place]) Comment on above: Result Comment: For ED adult patients suspected of sepsis, MDW<=20.0 does not rule out sepsis or risk of sepsis Performed By: #### A ALEKS DANG, GFR, ADIFF, BMP, CBC ####[address] [address] .NEUABSon 03-31-2024 Neutrophil, Absolute 5.9 10 3/mcL Normal 2.9-6.2 [facility] ([place]) Comment on above: Performed By: #### A ALEKS DANG, GFR, ADIFF, BMP, CBC ####[address] [place], [place] [address] .Urinalysis Microscopic (AO) on 03-31-2024 UA Bacteria 2+ /hpf Abnormal [facility] ([place] Comment on above: Performed By: #### A ALEKS DANG, GFR, ADIFF, BMP, CBC #### Aranza [address] [address] UA RBC 0-[address] [facility] ([place] Comment on above: Performed By: #### A ALEKS DANG, GFR, ADIFF, BMP, CBC #### [place] [address] [place], [place] [address] UA Squam Epithelial 0-5 Abnormal None Seen [facility] ([place]) Comment on above: Performed By: #### A ALEKS DANG, GFR, ADIFF, BMP, CBC #### [place] [address] [place], [place] [address] UA WBC 15-[address] [facility] ([place] Comment on above: Performed By: #### A ALEKS DANG, GFR, ADIFF, BMP, CBC #### [address] [address] BMPon 03-31-2024 BUN/Creatinine Ratio 16 ratio Normal 7-27 [facility] ([place] Comment on above: Performed By: #### A ALEKS DANG, GFR, ADIFF, BMP, CBC ####[address] [place], [place] [address] Calcium [Mass/Vol] 8.7 mg/dL Normal 8.4-10.2 [facility] ([place] Comment on above: Performed By: #### A ALEKS DANG, GFR, ADIFF, BMP, CBC ####[address] [place], [place] [address] Chloride [Moles/Vol] 99 mmol/L Normal 98-107 [facility] ([place] Comment on above: Performed By: #### A ALEKS DANG, GFR, ADIFF, BMP, CBC ####[address] [address] CO2 [Moles/Vol] 23 mmol/L Normal 22-29 [facility] ([place] Comment on above: Performed By: #### A ALEKS DANG, GFR, ADIFF, BMP, CBC ####[address] [place], [place] [address] Creatinine [Mass/Vol] 1.11 mg/dL High 0.55-1.02 [facility] ([place] Comment on above: Performed By: #### A ALEKS DANG, GFR, ADIFF, BMP, CBC ####[address] [place], [place] [address] Electrolyte Balance 11.0 mEq/L Normal 4.0-15.0 [facility] ([place]) Comment on above: Performed By: #### A ALEKS DANG, GFR, ADIFF, BMP, CBC ####[address] [place], [place] [address] Glucose [Mass/Vol] 144 mg/dL High 70-105 [facility] ([place] Comment on above: Performed By: #### A ALEKS DANG, GFR, ADIFF, BMP, CBC ####[address] [place], [place] [address] Potassium [Moles/Vol] 4.0 mmol/L Normal 3.5-5.1 [facility] ([place] Comment on above: Performed By: #### A ALEKS DANG, GFR, ADIFF, BMP, CBC ####[address] [address] Sodium [Moles/Vol] 133 mmol/L Low 136-145 [facility] ([place] Comment on above: Performed By: #### A ALEKS DANG, GFR, GONZALESIFF, BMP, CBC ####[address] [place], [place] [address] Urea nitrogen [Mass/Vol] 18 mg/dL Normal 7-18 [facility] ([place] Comment on above: Performed By: #### A ALEKS DANG, GFR, ADIFF, BMP, CBC ####[address] [place] [address] CBCon 03-31-2024 Erythrocyte distribution width (RBC) [Ratio] 13.8 % Normal 11.5-14.5 [facility] ([place] Comment on above: Performed By: #### A ALEKS DANG, GFR, ADIFF, BMP, CBC #### [id number] [place], [place] [address] Hematocrit (Bld) [Volume fraction] 42.5 % Normal 37.0-47.0 [facility] ([place] Comment on above: Performed By: #### A ALEKS DANG, GFR, ADIFF, BMP, CBC #### [address] [address] Hgb 14.6 G/dL Normal 12.0-16.0 [facility] ([place] Comment on above: Performed By: #### A ALEKS DANG, GFR, ADIFF, BMP, CBC #### [address] [address] MCH (RBC) [Entitic mass] 31.0 pg Normal 27.0-31.2 [facility] ([place] Comment on above: Performed By: #### A ALEKS DANG, GFR, ADIFF, BMP, CBC #### [place] [address] MCHC 34.5 G/dL Normal 33.0-37.0 [facility] ([place] Comment on above: Performed By: #### A ALEKS DANG, GFR, ADIFF, BMP, CBC #### [place] [address] MCV (RBC) [Entitic vol] 90.0 fL Normal 80.0-94.0 A [facility] ([place] Comment on above: Performed By: #### A ALEKS DANG, GFR, ADIFF, BMP, CBC #### [place] [address] Platelet 146 10 3/mcL Normal 130-400 [facility] ([place] Comment on above: Performed By: #### A ALEKS DANG, GFR, ADIFF, BMP, CBC #### [place] [address] Platelet mean volume (Bld) [Entitic vol] 8.2 fL Normal 7.4-10.4 [facility] ([place] Comment on above: Performed By: #### A ALEKS DANG, GFR, ADIFF, BMP, CBC #### [place] [address] RBC 4.72 10 6/mcL Normal 4.20-5.40 [facility] ([place] Comment on above: Performed By: #### A ALEKS DANG, GFR, ADIFF, BMP, CBC #### [address], [place] [address] WBC 8.6 10 3/mcL Normal 4.6-10.8 [facility] ([place] Comment on above: Performed By: #### A ALEKS DANG, GFR, ADIFF, BMP, CBC #### [address], [place] [address] LABORATORYOrdered By: Kyleigh burdick on 03-31-2024 Appearance (U) Clear (03/31/24 10:53 AM) Normal Clear AO Auto Urine SS Bacteria LM.HPF (Urine sed) [#/Area] 2 /[HPF] Invalid Interpretation Code AO Auto Urine SS Bilirubin Ql (U) Negative (03/31/24 10:53 AM) Normal Negative AO Auto Urine SS Color (U) Yellow (03/31/24 10:53 AM) Normal AO Auto Urine SS Glucose Test strip (U) [Mass/Vol] Negative Normal Negative AO Auto Urine SS Hemoglobin Auto test strip (U) [Mass/Vol] Small *ABN* (03/31/24 10:53 AM) Invalid Interpretation Code Negative AO Auto Urine SS Ketones Ql (U) Trace mg/dL Invalid Interpretation Code Negative AO Auto Urine SS UA Leuk Est Small *ABN* (03/31/24 10:53 AM) Invalid Interpretation Code Negative AO Auto Urine SS UA Nitrite Positive *ABN* (03/31/24 10:53 AM) Invalid Interpretation Code Negative AO Auto Urine SS UA pH 6.0 (03/31/24 10:53 AM) Normal 5.0 - 8.0 AO Auto Urine SS UA Protein Negative Normal Negative AO Auto Urine SS UA RBC 0-5 /HPF Invalid Interpretation Code None Seen AO Auto Urine SS UA Spec Grav 1.015 (03/31/24 10:53 AM) Normal 1.015-1.025 AO Auto Urine SS UA Specimen Type Void (03/31/24 10:53 AM) Normal AO Auto Urine SS UA Squam Epithelial 0-5 /HPF Invalid Interpretation Code None Seen AO Auto Urine SS UA Urobilinogen 1.0 E.U./dL Normal 0.2-1.0 AO Auto Urine SS WBC LM.HPF (Urine sed) [#/Area] 15-25 /HPF Invalid Interpretation Code None Seen AO Auto Urine SS LABORATORYOrdered By: SYSTEM SYSTEM on 03-31-2024 Basophil, Absolute 0.1 103/mcL Normal 0.0 - 0.2 10^3/mcL AO Workflow SS Basophils/100 WBC (Bld) 0.6 % Normal 0.0 - 2.5 % AO Workflow SS Calcium [Mass/Vol] 8.7 mg/dL Normal 8.4 - 10. 2 mg/dL AO ADM SS Chloride [Moles/Vol] 99 mmol/L Normal 98 - 10 7 mmol/L AO ADM SS CO2 [Moles/Vol] 23 mmol/L Normal 22 - 29 mmol/L AO ADM SS Creatinine [Mass/Vol] 1.11 mg/dL High 0.55 - 1.02 mg/dL AO ADM SS Electrolyte Balance 11.0 mEq/L Normal 4.0 - 15 .0 mEq/L AO ADM SS Eosinophil, Absolute 0.1 103/mcL Normal 0.0 - 0 .4 10^3/mcL AO Workflow SS Eosinophils/100 WBC (Bld) 1.5 % Normal 0.0 - 7.0 % AO Workflow SS Erythrocyte distribution width (RBC) [Ratio] 13.8 % Normal 11.5 - 14.5 % AO Workflow SS GFR/1.73 sq M.predicted among blacks MDRD (S/P/Bld) [Vol rate/Area] 62 ml/min/1.73sqm Invalid Interpretation Code AO Chemistry S Comment on above: Interpretive Data: GFR Population mean for , Non- Americans Ages 20-29 = 116 mL/min/1.73 sq.m. Ages 30-39 = 107 mL/min/1.73 sq.m. Ages 40-49 = 99 mL/min/1.73 sq.m. Ages 50-59 = 93 mL/min/1.73 sq.m. Ages 60-69 = 85 mL/min/1.73 sq.m. Ages 70+ = 75 mL/min/1.73 sq.m. Chronic Kidney Disease: Less than 60 mL/min/1.73 square meters End Stage Renal Disease: Less than 15 mL/min/1.73 square meters GFR/1.73 sq M.predicted among non-blacks MDRD (S/P/Bld) [Vol rate/Area] 51 ml/min/1.73sqm Invalid Interpretation Code AO Chemistry S Comment on above: Interpretive Data: GFR Population mean for , Non- Americans Ages 20-29 = 116 mL/min/1.73 sq.m. Ages 30-39 = 107 mL/min/1.73 sq.m. Ages 40-49 = 99 mL/min/1.73 sq.m. Ages 50-59 = 93 mL/min/1.73 sq.m. Ages 60-69 = 85 mL/min/1.73 sq.m. Ages 70+ = 75 mL/min/1.73 sq.m. Chronic Kidney Disease: Less than 60 mL/min/1.73 square meters End Stage Renal Disease: Less than 15 mL/min/1.73 square meters Glucose [Mass/Vol] 144 mg/dL High 70 - 105 mg/dL AO ADM SS Hematocrit (Bld) [Volume fraction] 42.5 % Normal 37.0 - 47.0 % AO Workflow SS Hemoglobin (Bld) [Mass/Vol] 14.6 G/dL Normal 12.0 - 16.0 G/dL AO Workflow SS Lymphocyte, Absolute 2.1 103/mcL Normal 0.8 - 3 .9 10^3/mcL AO Workflow SS Lymphocytes/100 WBC (Bld) 24.1 % Normal 10.0 - 50.0 % AO Workflow SS MCH (RBC) [Entitic mass] 31.0 pg Normal 27.0 - 31.2 pg AO Workflow SS MCHC 34.5 G/dL Normal 33.0 - 37.0 G/dL AO Workflow SS MCV (RBC) [Entitic vol] 90.0 fL Normal 80.0 - 94.0 fL AO Workflow SS Monocyte distribution width Auto (Bld) [Entitic vol] 15.31 1 Normal 0.00 - 20.00 AO Workflow SS Comment on above: Result Comment: For ED adult patients suspected of sepsis, MDW<=20.0 does not rule out sepsis or risk of sepsis Monocyte, Absolute 0.4 103/mcL Normal 0.2 - 1.0 10^3/mcL AO Workflow SS Monocytes/100 WBC (Bld) 5.2 % Normal 1.7 - 13.0 % AO Workflow SS Neutrophil, Absolute 5.9 103/mcL Normal 2.9 - 6 .2 10^3/mcL AO Workflow SS Neutrophils/100 WBC (Bld) 68.6 % Normal 37.0 - 80.0 % AO Workflow SS Platelet mean volume (Bld) [Entitic vol] 8.2 fL Normal 7.4 - 10.4 fL AO Workflow SS Platelets (Bld) [#/Vol] 146 103/mcL Normal 130 - 400 10^3/mcL AO Workflow SS Potassium [Moles/Vol] 4.0 mmol/L Normal 3.5 - 5.1 mmol/L AO ADM SS RBC (Bld) [#/Vol] 4.72 106/mcL Normal 4.20 - 5.4 0 10^6/mcL AO Workflow SS Sodium [Moles/Vol] 133 mmol/L Low 136 - 145 mmol/L AO ADM SS Urea nitrogen [Mass/Vol] 18 mg/dL Normal 7 - 18 mg/dL AO ADM SS Urea nitrogen/Creatinine [Mass ratio] 16 ratio Normal 7 - 27 ratio AO ADM SS WBC (Bld) [#/Vol] 8.6 103/mcL Normal 4.6 - 10.8 10^3/mcL AO Workflow SS UAon 03-31-2024 Color (U) Yellow Normal [facility] ([place] Comment on above: Performed By: #### A ALEKS DANG, GFR, ADIFF, BMP, CBC #### [address] [address] Glucose (U) [Mass/Vol] Negative Normal Negative [facility] ([place] Comment on above: Performed By: #### A ALEKS DANG, GFR, ADIFF, BMP, CBC #### [address] [address] Ketones Ql (U) Trace Abnormal Negative [facility] ([place] Comment on above: Performed By: #### A ALEKS DANG, GFR, ADIFF, BMP, CBC #### [address] [address] UA Appear Clear Normal Clear [facility] ([place] Comment on above: Performed By: #### A ALEKS DANG, GFR, ADIFF, BMP, CBC #### [address] [address] UA Blood Small Abnormal Negative [facility] ([place] Comment on above: Performed By: #### A ALEKS DANG, GFR, ADIFF, BMP, CBC #### [address] [address] UA Leuk Est Small Abnormal Negative [facility] ([place] Comment on above: Performed By: #### A ALEKS DANG, GFR, ADIFF, BMP, CBC #### [address] [address] UA Nitrite Positive Abnormal Negative [facility] ([place] Comment on above: Performed By: #### A ALEKS DANG, GFR, ADIFF, BMP, CBC #### [address] [address] UA pH 6.0 Normal 5.0 - 8.0 [facility] ([place] Comment on above: Performed By: #### A ALEKS DANG, GFR, ADIFF, BMP, CBC #### [address] [address] UA Protein Negative Normal Negative [facility] ([place] Comment on above: Performed By: #### A ALEKS DANG, GFR, ADIFF, BMP, CBC #### [address] [address] UA Spec Grav 1.015 Normal 1.015-1.025 [facility] ([place] Comment on above: Performed By: #### A ALEKS DANG, GFR, ADIFF, BMP, CBC #### [address] [address] UA Specimen Type Void Normal [facility] ([place] Comment on above: Performed By: #### A ALEKS DANG, GFR, ADIFF, BMP, CBC #### [address] [address] UA Urobilinogen 1.0 E.U./dL Normal 0.2-1.0 [facility] ([place] Comment on above: Performed By: #### A ALEKS DANG, GFR, ADIFF, BMP, CBC #### [address] [address] Urobilinogen (U) [Mass/Vol] Negative Normal Negative [facility] ([place] Comment on above: Performed By: #### A ALEKS DANG, GFR, ADIFF, BMP, CBC #### [address] [address] .Auto Diffon 12-15-2023 Basophil, Absolute 0.1 10 3/mcL Normal 0.0-0.2 [facility] ([place]) Comment on above: Performed By: #### B MP, GFR, MG, ANEU, ADIFF, CBC #### [address] [address] Basophils/100 WBC (Bld) 0.9 % Normal 0.0-2.5 A [facility] ([place] Comment on above: Performed By: #### B MP, GFR, MG, ANEU, ADIFF, CBC #### [address] [address] Eosinophil, Absolute 0.2 10 3/mcL Normal 0.0-0.4 [facility] ([place] Comment on above: Performed By: #### B MP, GFR, MG, ANEU, ADIFF, CBC #### [address] [address] Eosinophils/100 WBC (Bld) 2.2 % Normal 0.0-7.0 [facility] ([place] Comment on above: Performed By: #### B MP, GFR, MG, ANEU, ADIFF, CBC #### [address] [address] Lymphocyte, Absolute 2.6 10 3/mcL Normal 0.8-3.9 [facility] ([place] Comment on above: Performed By: #### B MP, GFR, MG, ANEU, ADIFF, CBC #### [address] [address] Lymphocytes/100 WBC (Bld) 27.3 % Normal 10.0-50.0 [facility] ([place]) Comment on above: Performed By: #### B MP, GFR, MG, ANEU, ADIFF, CBC #### [address] [address] Monocyte, Absolute 0.5 10 3/mcL Normal 0.2-1.0 [facility] ([place] Comment on above: Performed By: #### B MP, GFR, MG, ANEU, ADIFF, CBC #### [address] [address] Monocytes/100 WBC (Bld) 5.5 % Normal 1.7-13.0 A [facility] ([place] Comment on above: Performed By: #### B MP, GFR, MG, ANEU, ADIFF, CBC #### [address] [address] Neutrophils/100 WBC (Bld) 64.1 % Normal 37.0-80.0 [facility] ([place] Comment on above: Performed By: #### B MP, GFR, MG, ANEU, ADIFF, CBC #### [address] [address] .GFRon 12-15-2023 GFR Non- 54 ml/min/1.73sqm Normal [facility] ([place] Comment on above: Result Comment: GFR Population mean for , Non- Americans Ages 20-29 = 116 mL/min/1.73 sq.m. Ages 30-39 = 107 mL/min/1.73 sq.m. Ages 40-49 = 99 mL/min/1.73 sq.m. Ages 50-59 = 93 mL/min/1.73 sq.m. Ages 60-69 = 85 mL/min/1.73 sq.m. Ages 70+ = 75 mL/min/1.73 sq.m. Chronic Kidney Disease: Less than 60 mL/min/1.73 square meters End Stage Renal Disease: Less than 15 mL/min/1.73 square meters Performed By: #### B MP, GFR, MG, ANEU, ADIFF, CBC #### [address] [address] GFR 66 ml/min/1.73sqm Normal [facility] ([place]) Comment on above: Result Comment: GFR Population mean for , Non- Americans Ages 20-29 = 116 mL/min/1.73 sq.m. Ages 30-39 = 107 mL/min/1.73 sq.m. Ages 40-49 = 99 mL/min/1.73 sq.m. Ages 50-59 = 93 mL/min/1.73 sq.m. Ages 60-69 = 85 mL/min/1.73 sq.m. Ages 70+ = 75 mL/min/1.73 sq.m. Chronic Kidney Disease: Less than 60 mL/min/1.73 square meters End Stage Renal Disease: Less than 15 mL/min/1.73 square meters Performed By: #### B MP, GFR, MG, ANEU, ADIFF, CBC #### [address] [address] .MDWon 12-15-2023 Monocyte Distribution Width 19.04 Normal 0.00-20.00 [facility] ([place] Comment on above: Result Comment: For ED adult patients suspected of sepsis, MDW<=20.0 does not rule out sepsis or risk of sepsis Performed By: #### B MP, GFR, MG, ANEU, ADIFF, CBC #### [address] [address] .NEUABSon 12-15-2023 Neutrophil, Absolute 6.1 10 3/mcL Normal 2.9-6.2 [facility] ([place] Comment on above: Performed By: #### B MP, GFR, MG, ANEU, ADIFF, CBC #### [address] [address] BMPon 12-15-2023 BUN/Creatinine Ratio 14 ratio Normal 7-27 [facility] ([place] Comment on above: Performed By: #### B MP, GFR, MG, ANEU, ADIFF, CBC #### [address] [address] Calcium [Mass/Vol] 8.7 mg/dL Normal 8.4-10.2 [facility] ([place] Comment on above: Performed By: #### B MP, GFR, MG, ANEU, ADIFF, CBC #### [address] [address] Chloride [Moles/Vol] 102 mmol/L Normal 98-107 [facility] ([place] Comment on above: Performed By: #### B MP, GFR, MG, ANEU, ADIFF, CBC #### [address] [address] CO2 [Moles/Vol] 23 mmol/L Normal 22-29 [facility] ([place] Comment on above: Performed By: #### B MP, GFR, MG, ANEU, ADIFF, CBC #### [address] [address] Creatinine [Mass/Vol] 1.05 mg/dL High 0.55-1.02 [facility] ([place]) Comment on above: Performed By: #### B MP, GFR, MG, ANEU, ADIFF, CBC #### [address] [address] Electrolyte Balance 12.0 mEq/L Normal 4.0-15.0 [facility] ([place] Comment on above: Performed By: #### B MP, GFR, MG, ANEU, ADIFF, CBC #### [place] [id number] Glucose [Mass/Vol] 139 mg/dL High 70-105 [facility] ([place] Comment on above: Performed By: #### B MP, GFR, MG, ANEU, ADIFF, CBC #### [place] [id number] Potassium [Moles/Vol] 4.0 mmol/L Normal 3.5-5.1 [facility] ([place] Comment on above: Performed By: #### B MP, GFR, MG, ANEU, ADIFF, CBC #### [address] [address] Sodium [Moles/Vol] 137 mmol/L Normal 136-145 [facility] ([place]) Comment on above: Performed By: #### B MP, GFR, MG, ANEU, ADIFF, CBC #### [address] [address] Urea nitrogen [Mass/Vol] 15 mg/dL Normal 7-18 [facility] ([place] Comment on above: Performed By: #### B MP, GFR, MG, ANEU, ADIFF, CBC #### [address] [address] CBCon 12-15-2023 Erythrocyte distribution width (RBC) [Ratio] 13.9 % Normal 11.5-14.5 [facility] ([place]) Comment on above: Performed By: #### B MP, GFR, MG, ANEU, ADIFF, CBC #### [place] [address] Hematocrit (Bld) [Volume fraction] 39.5 % Normal 37.0-47.0 [facility] ([place]) Comment on above: Performed By: #### B MP, GFR, MG, ANEU, ADIFF, CBC #### [place] [address] Hgb 13.9 G/dL Normal 12.0-16.0 [facility] ([place]) Comment on above: Performed By: #### B MP, GFR, MG, ANEU, ADIFF, CBC #### [place] [address] MCH (RBC) [Entitic mass] 30.3 pg Normal 27.0-31.2 [facility] ([place]) Comment on above: Performed By: #### B MP, GFR, MG, ANEU, ADIFF, CBC #### [place] [address] MCHC 35.2 G/dL Normal 33.0-37.0 [facility] ([place]) Comment on above: Performed By: #### B MP, GFR, MG, ANEU, ADIFF, CBC #### [place] [address] MCV (RBC) [Entitic vol] 86.1 fL Normal 80.0-94.0 [facility] ([place]) Comment on above: Performed By: #### B MP, GFR, MG, ANEU, ADIFF, CBC #### [place] [address] Platelet 163 10 3/mcL Normal 130-400 [facility] ([place]) Comment on above: Performed By: #### B MP, GFR, MG, ANEU, ADIFF, CBC #### [place] [address] Platelet mean volume (Bld) [Entitic vol] 8.0 fL Normal 7.4-10.4 [facility] ([place]) Comment on above: Performed By: #### B MP, GFR, MG, ANEU, ADIFF, CBC #### [address] [address] RBC 4.58 10 6/mcL Normal 4.20-5.40 [facility] ([place]) Comment on above: Performed By: #### B MP, GFR, MG, ANEU, ADIFF, CBC #### [address] [address] WBC 9.5 10 3/mcL Normal 4.6-10.8 [facility] ([place]) Comment on above: Performed By: #### B MP, GFR, MG, ANEU, ADIFF, CBC #### [address] [address] No Panel Informationon 08-27 Culture Urine No growth at [address] [facility] Work Phone: .Auto Diffon 08-19-2023 Basophil, Absolute 0.0 10 3/mcL Normal 0.0-0.2 [facility] ([place]) Comment on above: Performed By: #### A HOLLIS, GFR, CBC, ADIFF, BMP, MG ####[facility] [place], [place] [address] Basophils/100 WBC (Bld) 0.5 % Normal 0.0-2.5 A [facility] ([place]) Comment on above: Performed By: #### A HOLLIS, GFR, CBC, ADIFF, BMP, MG ####[facility] [place], [place] [address] Eosinophil, Absolute 0.2 10 3/mcL Normal 0.0-0.4 [facility] ([place] Comment on above: Performed By: #### A HOLLIS, GFR, CBC, ADIFF, BMP, MG ####[facility] [place], [place] [address] Eosinophils/100 WBC (Bld) 2.7 % Normal 0.0-7.0 [facility] ([place] Comment on above: Performed By: #### A HOLLIS, GFR, CBC, ADIFF, BMP, MG ####[address] [place], [place] [address] Lymphocyte, Absolute 1.1 10 3/mcL Normal 0.8-3.9 [facility] ([place] Comment on above: Performed By: #### A HOLLIS, GFR, CBC, ADIFF, BMP, MG ####[address] [place], [place] [address] Lymphocytes/100 WBC (Bld) 14.5 % Normal 10.0-50.0 [facility] ([place] Comment on above: Performed By: #### A HOLLIS, GFR, CBC, ADIFF, BMP, MG ####[address] [place], [place] [address] Monocyte, Absolute 0.5 10 3/mcL Normal 0.2-1.0 [facility] ([place] Comment on above: Performed By: #### A HOLLIS, GFR, CBC, ADIFF, BMP, MG ####[address] [place], [place] [address] Monocytes/100 WBC (Bld) 5.9 % Normal 1.7-13.0 [facility] ([place] Comment on above: Performed By: #### A HOLLIS, GFR, CBC, ADIFF, BMP, MG ####[address] [place], [place] [address] Neutrophils/100 WBC (Bld) 76.4 % Normal 37.0-80.0 [facility] ([place] Comment on above: Performed By: #### A HOLLIS, GFR, CBC, ADIFF, BMP, MG ####[address] [place], [place] [address] .GFRon 08-19-2023 GFR 70 ml/min/1.73sqm Normal [facility] ([place]) Comment on above: Result Comment: GFR Population mean for , Non- Americans Ages 20-29 = 116 mL/min/1.73 sq.m. Ages 30-39 = 107 mL/min/1.73 sq.m. Ages 40-49 = 99 mL/min/1.73 sq.m. Ages 50-59 = 93 mL/min/1.73 sq.m. Ages 60-69 = 85 mL/min/1.73 sq.m. Ages 70+ = 75 mL/min/1.73 sq.m. Chronic Kidney Disease: Less than 60 mL/min/1.73 square meters End Stage Renal Disease: Less than 15 mL/min/1.73 square meters Performed By: #### A HOLLIS, GFR, CBC, ADIFF, BMP, MG ####[address] [place], [place] [address] GFR Non- 58 ml/min/1.73sqm Normal [facility] ([place] Comment on above: Result Comment: GFR Population mean for , Non- Americans Ages 20-29 = 116 mL/min/1.73 sq.m. Ages 30-39 = 107 mL/min/1.73 sq.m. Ages 40-49 = 99 mL/min/1.73 sq.m. Ages 50-59 = 93 mL/min/1.73 sq.m. Ages 60-69 = 85 mL/min/1.73 sq.m. Ages 70+ = 75 mL/min/1.73 sq.m. Chronic Kidney Disease: Less than 60 mL/min/1.73 square meters End Stage Renal Disease: Less than 15 mL/min/1.73 square meters Performed By: #### A HOLLIS, GFR, CBC, ADIFF, BMP, MG ####[address] [place], [place] [address] .NEUABSon 08-19-2023 Neutrophil, Absolute 5.8 10 3/mcL Normal 2.9-6.2 [facility] ([place] Comment on above: Performed By: #### A HOLLIS, GFR, CBC, ADIFF, BMP, MG ####[address] [place], [place] [address] BMPon 08-19-2023 BUN/Creatinine Ratio 18 ratio Normal 7-27 [facility] ([place] Comment on above: Performed By: #### A HOLLIS, GFR, CBC, ADIFF, BMP, MG ####[address] [place], [place] [address] Calcium [Mass/Vol] 7.7 mg/dL Low 8.4-10.2 [facility] ([place] Comment on above: Performed By: #### A HOLLIS, GFR, CBC, ADIFF, BMP, MG ####[address] [place], [place] [address] Chloride [Moles/Vol] 104 mmol/L Normal 98-107 [facility] ([place] Comment on above: Performed By: #### A HOLLIS, GFR, CBC, ADIFF, BMP, MG ####[address] [place], [place] [address] CO2 [Moles/Vol] 23 mmol/L Normal 22-29 [facility] ([place] Comment on above: Performed By: #### A HOLLIS, GFR, CBC, ADIFF, BMP, MG ####[address] [place], [place] [address] Creatinine [Mass/Vol] 1.00 mg/dL Normal 0.55-1.02 [facility] ([place]) Comment on above: Performed By: #### A HOLLIS, GFR, CBC, ADIFF, BMP, MG ####[address] [place], [place] [address] Electrolyte Balance 10.0 mEq/L Normal 4.0-15.0 [facility] ([place]) Comment on above: Performed By: #### A HOLLIS, GFR, CBC, ADIFF, BMP, MG ####[address] [place], [place] [address] Glucose [Mass/Vol] 127 mg/dL High 70-105 [facility] ([place] Comment on above: Performed By: #### A HOLLIS, GFR, CBC, ADIFF, BMP, MG ####[address] [place] [place], [place] [address] Potassium [Moles/Vol] 4.1 mmol/L Normal 3.5-5.1 [facility] ([place] Comment on above: Performed By: #### A HOLLIS, GFR, CBC, ADIFF, BMP, MG ####[address] [place], [place] [address] Sodium [Moles/Vol] 137 mmol/L Normal 136-145 [facility] ([place]) Comment on above: Performed By: #### A HOLLIS, GFR, CBC, ADIFF, BMP, MG ####[address] [place], [place] [address] Urea nitrogen [Mass/Vol] 18 mg/dL Normal 7-18 [facility] ([place] Comment on above: Performed By: #### A HOLLIS, GFR, CBC, ADIFF, BMP, MG ####[address] [place], [place] [address] CBCon 08-19-2023 Erythrocyte distribution width (RBC) [Ratio] 15.8 % High 11.5-14.5 [facility] ([place] Comment on above: Performed By: #### A HOLLIS, GFR, CBC, ADIFF, BMP, MG ####[address] [place], [place] [address] Hematocrit (Bld) [Volume fraction] 28.8 % Low 37.0-47.0 [facility] ([place] Comment on above: Performed By: #### A HOLLIS, GFR, CBC, ADIFF, BMP, MG ####[address] [place], [place] [address] Hgb 9.6 G/dL Low 12.0-16.0 [facility] ([place] Comment on above: Performed By: #### A HOLLIS, GFR, CBC, ADIFF, BMP, MG ####[address] [place], [place] [address] MCH (RBC) [Entitic mass] 28.3 pg Normal 27.0-31.2 [facility] ([place] Comment on above: Performed By: #### A HOLLIS, GFR, CBC, ADIFF, BMP, MG ####[address] [place], [place] [address] MCHC 33.2 G/dL Normal 33.0-37.0 [facility] ([place] Comment on above: Performed By: #### A HOLLIS, GFR, CBC, ADIFF, BMP, MG ####[address] [place], [place] [address] MCV (RBC) [Entitic vol] 85.2 fL Normal 80.0-94.0 A [facility] ([place] Comment on above: Performed By: #### A HOLLIS, GFR, CBC, ADIFF, BMP, MG ####[address] [place], [place] [address] Platelet 88 10 3/mcL Low 130-400 [facility] ([place] Comment on above: Performed By: #### A HOLLIS, GFR, CBC, ADIFF, BMP, MG ####[address] [place], [place] [address] Platelet mean volume (Bld) [Entitic vol] 7.8 fL Normal 7.4-10.4 [facility] ([place] Comment on above: Performed By: #### A HOLLIS, GFR, CBC, ADIFF, BMP, MG ####[address] [place], [place] [address] RBC 3.38 10 6/mcL Low 4.20-5.40 [facility] ([place] Comment on above: Performed By: #### A HOLLIS, GFR, CBC, ADIFF, BMP, MG ####[address] [place], [place] [address] WBC 7.6 10 3/mcL Normal 4.6-10.8 [facility] ([place] Comment on above: Performed By: #### A HOLLIS, GFR, CBC, ADIFF, BMP, MG ####[address] [place], [place] [address] HFPon 08-19-2023 ALT [Catalytic activity/Vol] 9 U/L Low 14-59 [facility] ([place] Comment on above: Performed By: #### B MP, GFR, MG, ANEU, ADIFF, CBC #### [address] [address] Albumin Level 1.8 G/dL Low 3.5-5.0 [facility] ([place] Comment on above: Performed By: #### B MP, GFR, MG, ANEU, ADIFF, CBC #### [address] [address] Albumin/Globulin [Mass ratio] 0.3 {ratio} Low 1.1-2.5 [facility] ([place] Comment on above: Performed By: #### B MP, GFR, MG, ANEU, ADIFF, CBC #### [place] [address] ALP [Catalytic activity/Vol] 115 U/L Normal 40-135 [facility] ([place] Comment on above: Performed By: #### B MP, GFR, MG, ANEU, ADIFF, CBC #### [place] [address] AST [Catalytic activity/Vol] 19 U/L Normal 10-40 [facility] ([place] Comment on above: Performed By: #### B MP, GFR, MG, ANEU, ADIFF, CBC #### [place] [address] Bili Direct 0.4 mg/dL High 0.0-0.2 [facility] ([place]) Comment on above: Result Comment: Use of this assay is not recommended for patients undergoing treatment with eltrombopag due to the potential for falsely elevated results. Performed By: #### B MP, GFR, MG, ANEU, ADIFF, CBC #### [place] [address] Bili Indirect 0.3 mg/dL Normal [facility] ([place] Comment on above: Performed By: #### B MP, GFR, MG, ANEU, ADIFF, CBC #### [place] [address] Bili Total 0.7 mg/dL Normal 0.2-1.0 [facility] ([place] Comment on above: Result Comment: Use of this assay is not recommended for patients undergoing treatment with eltrombopag due to the potential for falsely elevated results. Performed By: #### B MP, GFR, MG, ANEU, ADIFF, CBC #### [place] [address] Globulin 5.2 G/dL Normal [facility] ([place] Comment on above: Performed By: #### B MP, GFR, MG, ANEU, ADIFF, CBC #### [place] [address] Total Protein 7.0 G/dL Normal 6.4-8.2 [facility] ([place]) Comment on above: Performed By: #### B MP, GFR, MG, ANEU, ADIFF, CBC #### [facility] [address] [place] [address] LABORATORYOrdered By: Miguel Ángel Funk on 08-19-2023 Blood Glucose Testing Reason Routine (08/19/23 11:59 AM) [facility] Work Phone: Glucose [Mass/Vol] 118 mg/dL Invalid Interpretation Code 70 - 110 mg/dL [facility] Work Phone: Blood Glucose Testing Reason Routine (08/19/23 8:07 AM) [facility] Work Phone: Glucose [Mass/Vol] 128 mg/dL Invalid Interpretation Code 70 - 110 mg/dL [facility] Work Phone: LABORATORYOrdered By: SYSTEM SYSTEM on 08-19-2023 Basophil, Absolute 0.0 103/mcL Invalid Interpretation Code 0.0 - 0.2 10^3/mcL AO Workflow SS Basophils/100 WBC (Bld) 0.5 % Invalid Interpretation Code 0.0 - 2.5 % AO Workflow SS Calcium [Mass/Vol] 7.7 mg/dL Invalid Interpretation Code 8.4 - 10.2 mg/dL AO ADM SS Chloride [Moles/Vol] 104 mmol/L Invalid Interpretation Code 98 - 107 mmol/L AO ADM SS CO2 [Moles/Vol] 23 mmol/L Invalid Interpretation Code 22 - 29 mmol/L AO ADM SS Creatinine [Mass/Vol] 1.00 mg/dL Invalid Interpretation Code 0.55 - 1.02 mg/dL AO ADM SS Electrolyte Balance 10.0 mEq/L Invalid Interpretation Code 4.0 - 15.0 mEq/L AO ADM SS Eosinophil, Absolute 0.2 103/mcL Invalid Interpretation Code 0.0 - 0.4 10^3/mcL AO Workflow SS Eosinophils/100 WBC (Bld) 2.7 % Invalid Interpretation Code 0.0 - 7.0 % AO Workflow SS Erythrocyte distribution width (RBC) [Ratio] 15.8 % Invalid Interpretation Code 11.5 - 14.5 % AO Workflow SS GFR/1.73 sq M.predicted among blacks MDRD (S/P/Bld) [Vol rate/Area] 70 ml/min/1.73sqm Invalid Interpretation Code AO Chemistry S Comment on above: Interpretive Data: GFR Population mean for , Non- Americans Ages 20-29 = 116 mL/min/1.73 sq.m. Ages 30-39 = 107 mL/min/1.73 sq.m. Ages 40-49 = 99 mL/min/1.73 sq.m. Ages 50-59 = 93 mL/min/1.73 sq.m. Ages 60-69 = 85 mL/min/1.73 sq.m. Ages 70+ = 75 mL/min/1.73 sq.m. Chronic Kidney Disease: Less than 60 mL/min/1.73 square meters End Stage Renal Disease: Less than 15 mL/min/1.73 square meters GFR/1.73 sq M.predicted among non-blacks MDRD (S/P/Bld) [Vol rate/Area] 58 ml/min/1.73sqm Invalid Interpretation Code AO Chemistry S Comment on above: Interpretive Data: GFR Population mean for , Non- Americans Ages 20-29 = 116 mL/min/1.73 sq.m. Ages 30-39 = 107 mL/min/1.73 sq.m. Ages 40-49 = 99 mL/min/1.73 sq.m. Ages 50-59 = 93 mL/min/1.73 sq.m. Ages 60-69 = 85 mL/min/1.73 sq.m. Ages 70+ = 75 mL/min/1.73 sq.m. Chronic Kidney Disease: Less than 60 mL/min/1.73 square meters End Stage Renal Disease: Less than 15 mL/min/1.73 square meters Glucose [Mass/Vol] 127 mg/dL Invalid Interpretation Code 70 - 105 mg/dL AO ADM SS Hematocrit (Bld) [Volume fraction] 28.8 % Invalid Interpretation Code 37.0 - 47.0 % AO Workflow SS Hemoglobin (Bld) [Mass/Vol] 9.6 G/dL Invalid Interpretation Code 12.0 - 16.0 G/dL AO Workflow SS Lymphocyte, Absolute 1.1 103/mcL Invalid Interpretation Code 0.8 - 3.9 10^3/mcL AO Workflow SS Lymphocytes/100 WBC (Bld) 14.5 % Invalid Interpretation Code 10.0 - 50.0 % AO Workflow SS Magnesium [Mass/Vol] 1.3 mg/dL Invalid Interpretation Code 1.8 - 2.4 mg/dL AO ADM SS MCH (RBC) [Entitic mass] 28.3 pg Invalid Interpretation Code 27.0 - 31.2 pg AO Workflow SS MCHC 33.2 G/dL Invalid Interpretation Code 33.0 - 37.0 G/dL AO Workflow SS MCV (RBC) [Entitic vol] 85.2 fL Invalid Interpretation Code 80.0 - 94.0 fL AO Workflow SS Monocyte, Absolute 0.5 103/mcL Invalid Interpretation Code 0.2 - 1.0 10^3/mcL AO Workflow SS Monocytes/100 WBC (Bld) 5.9 % Invalid Interpretation Code 1.7 - 13.0 % AO Workflow SS Neutrophil, Absolute 5.8 103/mcL Invalid Interpretation Code 2.9 - 6.2 10^3/mcL AO Workflow SS Neutrophils/100 WBC (Bld) 76.4 % Invalid Interpretation Code 37.0 - 80.0 % AO Workflow SS Platelet mean volume (Bld) [Entitic vol] 7.8 fL Invalid Interpretation Code 7.4 - 10.4 fL AO Workflow SS Platelets (Bld) [#/Vol] 88 103/mcL Invalid Interpretation Code 130 - 400 10^3/mcL AO Workflow SS Potassium [Moles/Vol] 4.1 mmol/L Invalid Interpretation Code 3.5 - 5.1 mmol/L AO ADM SS RBC (Bld) [#/Vol] 3.38 106/mcL Invalid Interpretation Code 4.20 - 5.40 10^6/mcL AO Workflow SS Sodium [Moles/Vol] 137 mmol/L Invalid Interpretation Code 136 - 145 mmol/L AO ADM SS Urea nitrogen [Mass/Vol] 18 mg/dL Invalid Interpretation Code 7 - 18 mg/dL AO ADM SS Urea nitrogen/Creatinine [Mass ratio] 18 ratio Invalid Interpretation Code 7 - 27 ratio AO ADM SS WBC (Bld) [#/Vol] 7.6 103/mcL Invalid Interpretation Code 4.6 - 10.8 10^3/mcL AO Workflow SS Albumin BCP dye [Mass/Vol] 1.8 G/dL Invalid Interpretation Code 3.5 - 5.0 G/dL AO ADM SS Albumin/Globulin [Mass ratio] 0.3 {ratio} Invalid Interpretation Code 1.1 - 2.5 ratio AO ADM SS ALP [Catalytic activity/Vol] 115 U/L Invalid Interpretation Code 40 - 135 U/L AO ADM SS ALT With P-5'-P [Catalytic activity/Vol] 9 U/L Invalid Interpretation Code 14 - 59 U/L AO ADM SS AST With P-5'-P [Catalytic activity/Vol] 19 U/L Invalid Interpretation Code 10 - 40 U/L AO ADM SS Bilirubin [Mass/Vol] 0.7 mg/dL Invalid Interpretation Code 0.2 - 1.0 mg/dL AO ADM SS Comment on above: Interpretive Data: U se of this assay is not recommended for patients undergoing treatment with eltrombopag due to the potential for falsely elevated results. Bilirubin.direct [Mass/Vol] 0.4 mg/dL Invalid Interpretation Code 0.0 - 0.2 mg/dL AO ADM SS Comment on above: Interpretive Data: U se of this assay is not recommended for patients undergoing treatment with eltrombopag due to the potential for falsely elevated results. Bilirubin.direct [Mass/Vol] 0.3 mg/dL Invalid Interpretation Code AO Chemistry S Globulin 5.2 G/dL Invalid Interpretation Code AO ADM SS Protein [Mass/Vol] 7.0 G/dL Invalid Interpretation Code 6.4 - 8.2 G/dL AO ADM SS LABORATORYOrdered By: Regine Martin on 08-19-2023 Blood Glucose Testing Reason Routine (08/19/23 12:08 AM) [facility] Work Phone: Glucose [Mass/Vol] 180 mg/dL Invalid Interpretation Code 70 - 110 mg/dL [facility] Work Phone: MGon 08-19-2023 Magnesium [Mass/Vol] 1.3 mg/dL Low 1.8-2.4 [facility] ([place] Comment on above: Performed By: #### A HOLLIS, GFR, CBC, ADIFF, BMP, MG ####[facility] [place] [address] .Auto Diffon 08-18-2023 Basophil, Absolute 0.0 10 3/mcL Normal 0.0-0.2 [facility] ([place] Comment on above: Performed By: #### A ALEKS DANG, GFR, ADIFF, BMP, CBC #### [address] [address] Basophils/100 WBC (Bld) 0.6 % Normal 0.0-2.5 A [facility] ([place]) Comment on above: Performed By: #### A ALEKS DANG, GFR, ADIFF, BMP, CBC #### [address] [address] Eosinophil, Absolute 0.2 10 3/mcL Normal 0.0-0.4 [facility] ([place] Comment on above: Performed By: #### A ALEKS DANG, GFR, ADIFF, BMP, CBC #### [address] [address] Eosinophils/100 WBC (Bld) 2.6 % Normal 0.0-7.0 [facility] ([place] Comment on above: Performed By: #### A ALEKS DANG, GFR, ADIFF, BMP, CBC #### [address] [address] Lymphocyte, Absolute 1.3 10 3/mcL Normal 0.8-3.9 [facility] ([place] Comment on above: Performed By: #### A ALEKS DANG, GFR, ADIFF, BMP, CBC #### [address] [address] Lymphocytes/100 WBC (Bld) 15.2 % Normal 10.0-50.0 [facility] ([place] Comment on above: Performed By: #### A ALEKS DANG, GFR, ADIFF, BMP, CBC #### [address] [address] Monocyte, Absolute 0.5 10 3/mcL Normal 0.2-1.0 [facility] ([place] Comment on above: Performed By: #### A ALEKS DANG, GFR, ADIFF, BMP, CBC #### [address] [address] Monocytes/100 WBC (Bld) 6.2 % Normal 1.7-13.0 [facility] ([place]) Comment on above: Performed By: #### A ALEKS DANG, GFR, ADIFF, BMP, CBC #### [address] [address] Neutrophils/100 WBC (Bld) 75.4 % Normal 37.0-80.0 [facility] ([place] Comment on above: Performed By: #### A ALEKS DANG, GFR, ADIFF, BMP, CBC #### [address] [address] .GFRon 08-18-2023 GFR Non- 53 ml/min/1.73sqm Normal [facility] ([place]) Comment on above: Result Comment: GFR Population mean for , Non- Americans Ages 20-29 = 116 mL/min/1.73 sq.m. Ages 30-39 = 107 mL/min/1.73 sq.m. Ages 40-49 = 99 mL/min/1.73 sq.m. Ages 50-59 = 93 mL/min/1.73 sq.m. Ages 60-69 = 85 mL/min/1.73 sq.m. Ages 70+ = 75 mL/min/1.73 sq.m. Chronic Kidney Disease: Less than 60 mL/min/1.73 square meters End Stage Renal Disease: Less than 15 mL/min/1.73 square meters Performed By: #### A ALEKS DANG, GFR, ADIFF, BMP, CBC #### [address] [address] GFR 65 ml/min/1.73sqm Normal [facility] ([place] Comment on above: Result Comment: GFR Population mean for , Non- Americans Ages 20-29 = 116 mL/min/1.73 sq.m. Ages 30-39 = 107 mL/min/1.73 sq.m. Ages 40-49 = 99 mL/min/1.73 sq.m. Ages 50-59 = 93 mL/min/1.73 sq.m. Ages 60-69 = 85 mL/min/1.73 sq.m. Ages 70+ = 75 mL/min/1.73 sq.m. Chronic Kidney Disease: Less than 60 mL/min/1.73 square meters End Stage Renal Disease: Less than 15 mL/min/1.73 square meters Performed By: #### A ALEKS DANG, GFR, ADIFF, BMP, CBC #### [address] [address] .MDWon 08-18-2023 Monocyte Distribution Width 20.62 High 0.00-20.00 [facility] ([place]) Comment on above: Result Comment: For adults in ED, MDW>20.0 may be associated with a higher risk of sepsis during the first 12hrs of hospital admission Performed By: #### A ALEKS DANG, GFR, ADIFF, BMP, CBC #### [address] [address] .NEUABSon 08-18-2023 Neutrophil, Absolute 6.3 10 3/mcL High 2.9-6.2 [facility] ([place] Comment on above: Performed By: #### A ALEKS DANG, GFR, ADIFF, BMP, CBC #### [address] [address] .Urinalysis Microscopic (AO) on 08-18-2023 UA RBC 0-[address] [facility] ([place] Comment on above: Performed By: #### B MP, GFR, MG, ANEU, ADIFF, CBC #### [address] [address] UA Squam Epithelial 0-5 Abnormal None Seen [facility] ([place]) Comment on above: Performed By: #### B MP, GFR, MG, ANEU, ADIFF, CBC #### [address] [address] UA WBC LOADED Abnormal None Seen [facility] ([place] Comment on above: Performed By: #### B MP, GFR, MG, ANEU, ADIFF, CBC #### [address] [address] UA Yeast 2+ /hpf Abnormal [facility] ([place] Comment on above: Performed By: #### B MP, GFR, MG, ANEU, ADIFF, CBC #### [place] [address] Absolute lymphocyte countOrd ered By: Nato Snyder on 08-18-2023 Lymphocytes Auto (Unsp spec) [#/Vol] 1.24 10*3/uL 0.83-4.51 [facility] Basophil percentageOrdered B y: Nato Snyder on 08-18-2023 Basophils/100 WBC (Bld) 0.6 % 0-1 [facility] Chloride [Moles/Vol] 110 mmol/L 98-[facility] Eosin[facility]/100 WBC (Bld) 2.7 % 0-5 [facility] Glucose [Mass/Vol] 141 mg/dL 74-106 [facility] Comment on above: Fasting Glucose resu lt greater than or equal to 126 mg/dL suggests DIABETES MELLITUS per A.D.A. criteria. Neutrophils (Bld) [#/Vol] 6.0 10*3/uL 2.0-7.7 [facility] Neutrophils/100 WBC (Bld) 73.3 % 47-70 [facility] Potassium [Moles/Vol] 4.0 mmol/L 3.5-5.1 [facility] Sodium [Moles/Vol] 137 mmol/L 136-145 [facility] WBC (Bld) [#/Vol] 8.2 10*3/uL 4.4-11.0 [facility] Blood erythrocytes count (nu mber/volume)Ordered By: Nato Snyder on 08-18-2023 RBC (Bld) [#/Vol] 3.49 10*6/uL 4.2-5.4 [facility] Blood hemoglobin measurement (mass/volume)Ordered By: Nato Snyder on 08-18-2023 Hemoglobin (Bld) [Mass/Vol] 9.6 g/dL 12.0-15.0 [facility] Blood lymphocytes/100 leukoc ytesOrdered By: Nato Snyder on 08-18-2023 Lymphocytes/100 WBC (Bld) 15.1 % 19-41 [facility] Blood monocytes/100 leukocyt esOrdered By: Nato Snyder on 08-18-2023 Monocytes/100 WBC (Bld) 7.0 % 0-10 [facility] Blood platelet mean volumeOr dered By: Nato Snyder on 08-18-2023 Platelet mean volume (Bld) [Entitic vol] 10.5 fL 6.2-12.0 [facility] CBCon 08-18-2023 Erythrocyte distribution width (RBC) [Ratio] 16.5 % High 11.5-14.5 [facility] ([place] Comment on above: Performed By: #### A ALEKS DANG, GFR, ADIFF, BMP, CBC #### [place] [address] Hematocrit (Bld) [Volume fraction] 32.1 % Low 37.0-47.0 [facility] ([place] Comment on above: Performed By: #### A ALEKS DANG, GFR, ADIFF, BMP, CBC #### [place] [address] Hgb 10.6 G/dL Low 12.0-16.0 [facility] ([place] Comment on above: Performed By: #### A ALEKS DANG, GFR, ADIFF, BMP, CBC #### [place] [address] MCH (RBC) [Entitic mass] 28.1 pg Normal 27.0-31.2 [facility] ([place] Comment on above: Performed By: #### A ALEKS DANG, GFR, ADIFF, BMP, CBC #### [place] [address] MCHC 33.2 G/dL Normal 33.0-37.0 [facility] ([place] Comment on above: Performed By: #### A ALEKS DANG, GFR, ADIFF, BMP, CBC #### [place] [address] MCV (RBC) [Entitic vol] 84.6 fL Normal 80.0-94.0 [facility] ([place] Comment on above: Performed By: #### A ALEKS DANG, GFR, ADIFF, BMP, CBC #### [address] [address] Platelet 95 10 3/mcL Low 130-400 [facility] ([place] Comment on above: Performed By: #### A ALEKS DANG, GFR, ADIFF, BMP, CBC #### [address] [address] Platelet mean volume (Bld) [Entitic vol] 7.7 fL Normal 7.4-10.4 [facility] ([place] Comment on above: Performed By: #### A ALEKS DANG, GFR, ADIFF, BMP, CBC #### [address] [address] RBC 3.79 10 6/mcL Low 4.20-5.40 [facility] ([place] Comment on above: Performed By: #### A ALEKS DANG, GFR, ADIFF, BMP, CBC #### [address] [address] WBC 8.4 10 3/mcL Normal 4.6-10.8 [facility] ([place]) Comment on above: Performed By: #### A ALEKS DANG, GFR, ADIFF, BMP, CBC #### [address] [address] CMPon 08-18-2023 ALT [Catalytic activity/Vol] 11 U/L Low 14-59 [facility] ([place]) Comment on above: Performed By: #### A ALEKS DANG, GFR, ADIFF, BMP, CBC #### [address] [address] Albumin Level 2.0 G/dL Low 3.5-5.0 [facility] ([place]) Comment on above: Performed By: #### A ALEKS DANG, GFR, ADIFF, BMP, CBC #### [address] [address] Albumin/Globulin [Mass ratio] 0.4 {ratio} Low 1.1-2.5 [facility] ([place]) Comment on above: Performed By: #### A ALEKS DANG, GFR, ADIFF, BMP, CBC #### [address] [address] ALP [Catalytic activity/Vol] 138 U/L High 40-135 [facility] ([place]) Comment on above: Performed By: #### A ALEKS DANG, GFR, ADIFF, BMP, CBC #### [address] [address] AST [Catalytic activity/Vol] 24 U/L Normal 10-[address] [facility] ([place]) Comment on above: Performed By: #### A ALEKS DANG, GFR, ADIFF, BMP, CBC #### [address] [address] Bili Total 1.0 mg/dL Normal 0.2-1.0 [facility] ([place]) Comment on above: Result Comment: Use of this assay is not recommended for patients undergoing treatment with eltrombopag due to the potential for falsely elevated results. Performed By: #### A ALEKS DANG, GFR, ADIFF, BMP, CBC #### [address] [address] BUN/Creatinine Ratio 21 ratio Normal 7-27 [facility] ([place]) Comment on above: Performed By: #### A ALEKS DANG, GFR, ADIFF, BMP, CBC #### [address] [address] Calcium [Mass/Vol] 7.8 mg/dL Low 8.4-10.2 [facility] ([place]) Comment on above: Performed By: #### A ALEKS DANG, GFR, ADIFF, BMP, CBC #### [address] [address] Chloride [Moles/Vol] 101 mmol/L Normal 98-107 [facility] ([place]) Comment on above: Performed By: #### A ALEKS DANG, GFR, ADIFF, BMP, CBC #### [address] [address] CO2 [Moles/Vol] 26 mmol/L Normal 22-29 [facility] ([place]) Comment on above: Performed By: #### A ALEKS DANG, GFR, ADIFF, BMP, CBC #### [address] [address] Creatinine [Mass/Vol] 1.07 mg/dL High 0.55-1.02 [facility] ([place]) Comment on above: Performed By: #### A ALEKS DANG, GFR, ADIFF, BMP, CBC #### [address] [address] Electrolyte Balance 9.0 mEq/L Normal 4.0-15.0 [facility] ([place]) Comment on above: Performed By: #### A ALEKS DANG, GFR, ADIFF, BMP, CBC #### [address] [address] Globulin 5.7 G/dL Normal [facility] ([place]) Comment on above: Performed By: #### A ALEKS DANG, GFR, ADIFF, BMP, CBC #### [address] [address] Glucose [Mass/Vol] 153 mg/dL High 70-105 [facility] ([place]) Comment on above: Performed By: #### A ALEKS DANG, GFR, ADIFF, BMP, CBC #### [address] [address] Potassium [Moles/Vol] 4.3 mmol/L Normal 3.5-5.1 [facility] ([place]) Comment on above: Performed By: #### A ALEKS DANG, GFR, ADIFF, BMP, CBC #### [address] [address] Sodium [Moles/Vol] 136 mmol/L Normal 136-145 [facility] ([place]) Comment on above: Performed By: #### A ALEKS DANG, GFR, ADIFF, BMP, CBC #### [address] [address] Total Protein 7.7 G/dL Normal 6.4-8.2 [facility] ([place]) Comment on above: Performed By: #### A ALEKS DANG, GFR, ADIFF, BMP, CBC #### [facility] [address], [place] [address] Urea nitrogen [Mass/Vol] 22 mg/dL High 7-18 [facility] ([place]) Comment on above: Performed By: #### A ALEKS DANG, GFR, ADIFF, BMP, CBC #### [facility] [address], [place] [address] Determination of erythrocyte mean corpuscular volume (MCV)Ordered By: Nato Snyder on 08-18-2023 MCV (RBC) [Entitic vol] 87.1 fL 81-99 [facility] Glucose Glucometer (BldC) [M ass/Vol]Ordered By: Nato Snyder on 08-18-2023 Glucose [Mass/Vol] 137 mg/dL 74-106 [facility] Comment on above: MANAGEMENT OF PATIEN T CARE PER NURSING PROTOCOL Hematocrit Auto (Bld) [Volum e fraction]Ordered By: Nato Snyder on 08-18-2023 Hematocrit (Bld) [Volume fraction] 30.4 % 37-47 [facility] LABORATORYOrdered By: SYSTEM SYSTEM on 08-18-2023 Albumin BCP dye [Mass/Vol] 2.0 G/dL Invalid Interpretation Code 3.5 - 5.0 G/dL AO ADM SS Albumin/Globulin [Mass ratio] 0.4 {ratio} Invalid Interpretation Code 1.1 - 2.5 ratio AO ADM SS ALP [Catalytic activity/Vol] 138 U/L Invalid Interpretation Code 40 - 135 U/L AO ADM SS ALT With P-5'-P [Catalytic activity/Vol] 11 U/L Invalid Interpretation Code 14 - 59 U/L AO ADM SS AST With P-5'-P [Catalytic activity/Vol] 24 U/L Invalid Interpretation Code 10 - 40 U/L AO ADM SS Basophil, Absolute 0.0 103/mcL Invalid Interpretation Code 0.0 - 0.2 10^3/mcL AO Workflow SS Basophils/100 WBC (Bld) 0.6 % Invalid Interpretation Code 0.0 - 2.5 % AO Workflow SS Bilirubin [Mass/Vol] 1.0 mg/dL Invalid Interpretation Code 0.2 - 1.0 mg/dL AO ADM SS Comment on above: Interpretive Data: U se of this assay is not recommended for patients undergoing treatment with eltrombopag due to the potential for falsely elevated results. Calcium [Mass/Vol] 7.8 mg/dL Invalid Interpretation Code 8.4 - 10.2 mg/dL AO ADM SS Chloride [Moles/Vol] 101 mmol/L Invalid Interpretation Code 98 - 107 mmol/L AO ADM SS CO2 [Moles/Vol] 26 mmol/L Invalid Interpretation Code 22 - 29 mmol/L AO ADM SS Creatinine [Mass/Vol] 1.07 mg/dL Invalid Interpretation Code 0.55 - 1.02 mg/dL AO ADM SS Electrolyte Balance 9.0 mEq/L Invalid Interpretation Code 4.0 - 15.0 mEq/L AO ADM SS Eosinophil, Absolute 0.2 103/mcL Invalid Interpretation Code 0.0 - 0.4 10^3/mcL AO Workflow SS Eosinophils/100 WBC (Bld) 2.6 % Invalid Interpretation Code 0.0 - 7.0 % AO Workflow SS Erythrocyte distribution width (RBC) [Ratio] 16.5 % Invalid Interpretation Code 11.5 - 14.5 % AO Workflow SS GFR/1.73 sq M.predicted among blacks MDRD (S/P/Bld) [Vol rate/Area] 65 ml/min/1.73sqm Invalid Interpretation Code AO Chemistry S Comment on above: Interpretive Data: GFR Population mean for , Non- Americans Ages 20-29 = 116 mL/min/1.73 sq.m. Ages 30-39 = 107 mL/min/1.73 sq.m. Ages 40-49 = 99 mL/min/1.73 sq.m. Ages 50-59 = 93 mL/min/1.73 sq.m. Ages 60-69 = 85 mL/min/1.73 sq.m. Ages 70+ = 75 mL/min/1.73 sq.m. Chronic Kidney Disease: Less than 60 mL/min/1.73 square meters End Stage Renal Disease: Less than 15 mL/min/1.73 square meters GFR/1.73 sq M.predicted among non-blacks MDRD (S/P/Bld) [Vol rate/Area] 53 ml/min/1.73sqm Invalid Interpretation Code AO Chemistry S Comment on above: Interpretive Data: GFR Population mean for , Non- Americans Ages 20-29 = 116 mL/min/1.73 sq.m. Ages 30-39 = 107 mL/min/1.73 sq.m. Ages 40-49 = 99 mL/min/1.73 sq.m. Ages 50-59 = 93 mL/min/1.73 sq.m. Ages 60-69 = 85 mL/min/1.73 sq.m. Ages 70+ = 75 mL/min/1.73 sq.m. Chronic Kidney Disease: Less than 60 mL/min/1.73 square meters End Stage Renal Disease: Less than 15 mL/min/1.73 square meters Globulin 5.7 G/dL Invalid Interpretation Code AO ADM SS Glucose [Mass/Vol] 153 mg/dL Invalid Interpretation Code 70 - 105 mg/dL AO ADM SS Hematocrit (Bld) [Volume fraction] 32.1 % Invalid Interpretation Code 37.0 - 47.0 % AO Workflow SS Hemoglobin (Bld) [Mass/Vol] 10.6 G/dL Invalid Interpretation Code 12.0 - 16.0 G/dL AO Workflow SS Lactate [Moles/Vol] 1.2 mmol/L Invalid Interpretation Code 0.4 - 2.0 mmol/L AO ADM SS Lymphocyte, Absolute 1.3 103/mcL Invalid Interpretation Code 0.8 - 3.9 10^3/mcL AO Workflow SS Lymphocytes/100 WBC (Bld) 15.2 % Invalid Interpretation Code 10.0 - 50.0 % AO Workflow SS MCH (RBC) [Entitic mass] 28.1 pg Invalid Interpretation Code 27.0 - 31.2 pg AO Workflow SS MCHC 33.2 G/dL Invalid Interpretation Code 33.0 - 37.0 G/dL AO Workflow SS MCV (RBC) [Entitic vol] 84.6 fL Invalid Interpretation Code 80.0 - 94.0 fL AO Workflow SS Monocyte distribution width Auto (Bld) [Entitic vol] 20.62 1 Invalid Interpretation Code 0.00 - 20.00 AO Workflow SS Comment on above: Result Comment: For adults in ED, MDW>20.0 may be associated with a higher risk of sepsis during the first 12hrs of hospital admission Monocyte, Absolute 0.5 103/mcL Invalid Interpretation Code 0.2 - 1.0 10^3/mcL AO Workflow SS Monocytes/100 WBC (Bld) 6.2 % Invalid Interpretation Code 1.7 - 13.0 % AO Workflow SS Neutrophil, Absolute 6.3 103/mcL Invalid Interpretation Code 2.9 - 6.2 10^3/mcL AO Workflow SS Neutrophils/100 WBC (Bld) 75.4 % Invalid Interpretation Code 37.0 - 80.0 % AO Workflow SS Platelet mean volume (Bld) [Entitic vol] 7.7 fL Invalid Interpretation Code 7.4 - 10.4 fL AO Workflow SS Platelets (Bld) [#/Vol] 95 103/mcL Invalid Interpretation Code 130 - 400 10^3/mcL AO Workflow SS Potassium [Moles/Vol] 4.3 mmol/L Invalid Interpretation Code 3.5 - 5.1 mmol/L AO ADM SS Protein [Mass/Vol] 7.7 G/dL Invalid Interpretation Code 6.4 - 8.2 G/dL AO ADM SS RBC (Bld) [#/Vol] 3.79 106/mcL Invalid Interpretation Code 4.20 - 5.40 10^6/mcL AO Workflow SS Sodium [Moles/Vol] 136 mmol/L Invalid Interpretation Code 136 - 145 mmol/L AO ADM SS Urea nitrogen [Mass/Vol] 22 mg/dL Invalid Interpretation Code 7 - 18 mg/dL AO ADM SS Urea nitrogen/Creatinine [Mass ratio] 21 ratio Invalid Interpretation Code 7 - 27 ratio AO ADM SS WBC (Bld) [#/Vol] 8.4 103/mcL Invalid Interpretation Code 4.6 - 10.8 10^3/mcL AO Workflow SS LABORATORYOrdered By: Sunshine Brandon on 08-18-2023 Appearance (U) Cloudy *ABN* (08/18/23 4:03 PM) Invalid Interpretation Code Clear AO Auto Urine SS Bilirubin Ql (U) Small *ABN* (08/18/23 4:03 PM) Invalid Interpretation Code Negative AO Auto Urine SS Color (U) Dark yellow Invalid Interpretation Code AO Auto Urine SS Glucose Test strip (U) [Mass/Vol] Negative Invalid Interpretation Code Negative AO Auto Urine SS Hemoglobin Auto test strip (U) [Mass/Vol] Moderate *ABN* (08/18/23 4:03 PM) Invalid Interpretation Code Negative AO Auto Urine SS INR Coag (PPP) [Relative time] 1.4 {INR} Invalid Interpretation Code AO [facility] SS Comment on above: Interpretive Data: Faith bob [employer] (CHEST, 1992, 102:312S-25S) recommended therapeutic range for oral anticoagulant therapy is: LOW RISK: Prophylaxis of venous thrombosis INR: 2.0-3.0 Treatment of pulmonary embolism 2.0-3.0 Prevention of systemic embolism 2.0-3.0 HIGH RISK: Mechanical prosthetic valves 2.5-3.5 Ketones Ql (U) Trace mg/dL Invalid Interpretation Code Negative AO Auto Urine SS PT Coag (PPP) [Time] 16.1 s Invalid Interpretation Code 9.0 - 14.2 seconds AO [facility] SS UA Leuk Est Small *ABN* (08/18/23 4:03 PM) Invalid Interpretation Code Negative AO Auto Urine SS UA Nitrite Negative (08/18/23 4:03 PM) Invalid Interpretation Code Negative AO Auto Urine SS UA pH 5.5 (08/18/23 4:03 PM) Invalid Interpretation Code 5.0 - 8.0 AO Auto Urine SS UA Protein 30 mg/dL Invalid Interpretation Code Negative AO Auto Urine SS UA RBC 0-5 /HPF Invalid Interpretation Code None Seen AO Auto Urine SS UA Spec Grav 1.025 (08/18/23 4:03 PM) Invalid Interpretation Code 1.015-1.025 AO Auto Urine SS UA Specimen Type Catheter (08/18/23 4:03 PM) Invalid Interpretation Code AO Auto Urine SS UA Squam Epithelial 0-5 /HPF Invalid Interpretation Code None Seen AO Auto Urine SS UA Urobilinogen 0.2 E.U./dL Invalid Interpretation Code 0.2-1.0 AO Auto Urine SS WBC LM.HPF (Urine sed) [#/Area] LOADED /HPF Invalid Interpretation Code None Seen AO Auto Urine SS Yeast LM.HPF (Urine sed) [#/Area] 2 /[HPF] Invalid Interpretation Code AO Auto Urine SS LACon 08-18-2023 Lactic Acid Lvl 1.2 mmol/L Normal 0.4-2.0 [facility] ([place]) Comment on above: Performed By: #### A ALEKS DANG, GFR, ADIFF, BMP, CBC #### [address] [address] Laboratory - Chemistry and C hemistry - challengeOrdered By: Nato Snyder on 08-18-2023 CO2 [Moles/Vol] 22.0 mmol/L 21.0-32.0 [facility] Urea nitrogen/Creatinine [Mass ratio] 29.8 mg/mg 20 [facility] Laboratory - Hematology and Cell countsOrdered By: Nato Snyder on 08-18-2023 Erythrocyte distribution width (RBC) [Entitic vol] 51.8 fL 35.1-43.9 [facility] Erythrocyte distribution width (RBC) [Ratio] 16.3 % 11.6-14.6 [facility] Immature granulocytes/100 WBC (Bld) 1.300 % 0.0-0.9 [facility] Comment on above: IG% - Immature Granu locytes (promyelocytes, myelocytes and metamyelocytes) > 1% indicates that a LEFT SHIFT is Present. MCH (RBC) [Entitic mass] 27.5 pg 27.0-32.0 [facility] Nucleated RBC/100 WBC (Bld) [Ratio] 0 % 0-5 [facility] MCHC Auto (RBC) [Mass/Vol]Or dered By: Nato Snyder on 08-18-2023 MCHC (RBC) [Mass/Vol] 31.6 g/dL 32-36 [facility] No Panel Informationon 08-18 Culture Urine No growth to date [facility] Work Phone: Microscopic examination of blood, culture Culture has been received in lab and is no growth to date. Routine cultures are held for [address] [facility] Work Phone: No Panel InformationOrdered By: Nato Snyder on 08-18-2023 Estimated Creatinine Clearance Calc 83.28 ml/min [facility] Estimated GFR (MDRD) Amer 100 mL/min >60 [facility] Comment on above: GFR Calc Estimated GFR (MDRD) Non-Af Amer 82 mL/min >60 [facility] Comment on above: Non- GFR Calc PROon 08-18-2023 PT Coag (PPP) [Time] 16.1 s High 9.0-14.2 [facility] ([place]) Comment on above: Performed By: #### A HOLLIS, W, GFR, ADIFF, BMP, CBC #### [facility] [address], [place] [address] PT International Ratio 1.4 Normal [facility] ([place]) Comment on above: Result Comment: [employer] (CHEST, 1992, 102:312S-25S) recommended therapeutic range for oral anticoagulant therapy is: LOW RISK: Prophylaxis of venous thrombosis INR: 2.0-3.0 Treatment of pulmonary embolism 2.0-3.0 Prevention of systemic embolism 2.0-3.0 HIGH RISK: Mechanical prosthetic valves 2.5-3.5 Performed By: #### A ALEKS DANG, GFR, ADIFF, BMP, CBC #### [facility] [address], [place] [address] Platelets bldOrdered By: Geraldine Snyder on 08-18-2023 Platelets (Bld) [#/Vol] 82 10*3/uL 150-450 [facility] Serum or plasma calcium avtar urement (mass/volume)Ordered By: Nato Snyder on 08-18-2023 Calcium [Mass/Vol] 8.1 mg/dL 8.5-10.1 [facility] Serum or plasma creatinine m easurement (mass/volume)Ordered By: Nato Snyder on 08-18-2023 Creatinine [Mass/Vol] 0.77 mg/dL 0.55-1.02 [facility] Comment on above: The validity of the calculated GFR & GFRAA in patients over 70 years has not been determined. Clinical correlation is essential. Serum or plasma urea nitroge n measurement (mass/volume)Ordered By: Nato Snyder on 08-18-2023 Urea nitrogen [Mass/Vol] 23 mg/dL 7-18 [facility] Thin prep Papanicolaou smear with manual screeningOrdered By: Nato Snyder on 08-18-2023 Thin prep Papanicolaou smear with manual screening 5 5-15 [facility] UAon 08-18-2023 Color (U) Dark yellow Normal [facility] ([place]) Comment on above: Performed By: #### B MP, GFR, MG, ANEU, ADIFF, CBC #### [facility] [address] [place] [id number] Glucose (U) [Mass/Vol] Negative Normal Negative [facility] ([place]) Comment on above: Performed By: #### B MP, GFR, MG, ANEU, ADIFF, CBC #### [address] [address] Ketones Ql (U) Trace Abnormal Negative [facility] ([place]) Comment [place] above: Performed By: #### B MP, GFR, MG, ANEU, ADIFF, CBC #### [address] [address] UA Appear Cloudy Abnormal Clear [facility] ([place]) Comment on above: Performed By: #### B MP, GFR, MG, ANEU, ADIFF, CBC #### [address] [address] UA Bili Small Abnormal Negative [facility] ([place]) Comment on above: Performed By: #### B MP, GFR, MG, ANEU, ADIFF, CBC #### [address] [address] UA Blood Moderate Abnormal Negative [facility] ([place]) Comment on above: Performed By: #### B MP, GFR, MG, ANEU, ADIFF, CBC #### [address] [address] UA Leuk Est Small Abnormal Negative [facility] ([place]) Comment on above: Performed By: #### B MP, GFR, MG, ANEU, ADIFF, CBC #### [address] [address] UA Nitrite Negative Normal Negative [facility] ([place]) Comment on above: Performed By: #### B MP, GFR, MG, ANEU, ADIFF, CBC #### [address] [address] UA pH 5.5 Normal 5.0 - 8.0 [facility] ([place]) Comment on above: Performed By: #### B MP, GFR, MG, ANEU, ADIFF, CBC #### [place] [id number] UA Protein 30 mg/dL Normal Negative [facility] ([place]) Comment on above: Performed By: #### B MP, GFR, MG, ANEU, ADIFF, CBC #### [place] [address] UA Spec Grav 1.025 Normal 1.015-1.025 [facility] ([place]) Comment on above: Performed By: #### B MP, GFR, MG, ANEU, ADIFF, CBC #### [address] [address] UA Specimen Type Catheter Normal [facility] ([place]) Comment on above: Performed By: #### B MP, GFR, MG, ANEU, ADIFF, CBC #### [address] [address] UA Urobilinogen 0.2 E.U./dL Normal 0.2-1.0 [facility] ([place]) Comment on above: Performed By: #### B MP, GFR, MG, ANEU, ADIFF, CBC #### [address] [address] XR CHEST 1 VIEWon 08-18-2023 XR CHEST 1 VIEW ORIGINAL EXAMINATION: ONE XRAY VIEW OF THE CHEST 08/18/2023 4:23 pm COMPARISON: Chest radiograph 08/12/2023. HISTORY: ORDERING SYSTEM PROVIDED HISTORY: Reason for Exam: pain/fever FINDINGS: Body habitus obscures some detail. Stable cardiomediastinal silhouette. No large volume pleural effusion or pneumothorax. No focal consolidation. No definite acute osseous abnormality. IMPRESSION: No focal consolidation or edema. I have personally reviewed the images of this examination and agree with the resident's finding and interpretation. Interpreted by: Tyesha Cowan MD Preliminary Report By: Vipul Rausch Electronically signed By Tyesha Cowan MD Dictated Date: 08/18/2023 4:24:54 PM Prelim Date: 08/18/2023 4:26:13 PM Sign Date: 08/18/2023 4:50:09 PM Ordering Provider: STACIA HARRISON [facility] ([place]) Laboratory - Chemistry and C hemistry - challengeOrdered By: Nato Snyder on 08-17-2023 CK [Catalytic activity/Vol] 26 U/L 26-192 [facility] Laboratory - Drug toxicology Ordered By: Nato Snyder on 08-17-2023 Amphetamines Ql (U) Negative <1000 ng/mL [facility] Benzodiazepines Ql (U) Negative < 200 ng/mL [facility] Cannabinoids Screen Ql (U) Negative < 50 ng/mL [facility] Cocaine Ql (U) Negative < 300 ng/mL [facility] Opiates Ql (U) Positive < 300 ng/mL [facility] No Panel InformationOrdered By: Nato Snyder on 08-17-2023 MDMA (Ecstasy) Screen Negative < 500 ng/mL [facility] Urine Barbiturates Screen Negative < 200 ng/mL [facility] Urine Drug Screen Comment [facility] Comment on above: CONFIRMATORY TESTING FOR ALL POSITIVE URINE DRUG SCREENRESULTS WILL ONLY BE SENT OUT UPON PHYSICIAN ORDER. VISTA Urine Drug Screen methods provide only preliminaryanalytical test results. A more specific alternate chemicalmethod must be used in order to obtain a confirmedanalytical result. Gas chromatography/mass spectrometery(GC/MS) is the preferred confirmatory method. Clinicalconsideration and professional judgement should be appliedto any drug of abuse test result, particularly whenpreliminary positive results are used. URINE TCA TESTING MUST BE ORDERED SEPARATELY. USE TESTMNEMONIC: [facility] Urine Methadone Screen Negative < 300 ng/mL [facility] Urine phencyclidine (PCP) de tectionOrdered By: Nato Snyder on 08-17-2023 Phencyclidine Ql (U) Negative < 25 ng/mL [facility] Basophil percentageOrdered B y: Clifford Hernandez on 08-15-2023 Basophil percentage < 10.0 umol/L [facility] Blood manual differential co mment interpretation (narrative result)Ordered By: Nato Snyder on 08-15-2023 Manual differential comment Dominic (Bld) [Interp] SCANNED [facility] Comment on above: RARE BANDS NOTED Blood platelet adequacy dete ction by light microscopyOrdered By: Nato Snyder on 08-14-2023 Platelets LM Ql (Bld) MOD DEC ADEQ [facility] Laboratory - Hematology and Cell countsOrdered By: Nato Snyder on 08-14-2023 Anisocytosis Ql (Bld) 1+ [facility] BCIDon 08-13-2023 Acinetobacter todd-baumanii complex Not detected Normal Not Detected [facility] ([place]) Comment on above: Performed By: #### B MP, GFR, MG, ANEU, ADIFF, CBC #### [place] [address] Bacteroides fragilis Not detected Normal Not Detected [facility] ([place]) Comment on above: Performed By: #### B MP, GFR, MG, ANEU, ADIFF, CBC #### [address] [address] BCID Comment See Comment Normal [facility] ([place]) Comment on above: Result Comment: Anti microbial resistance can occur via multiple mechanisms. A Not Detected result for antimicrobial resistance gene(s) does not indicate antimicrobial susceptibility. Culture identification and susceptibility results to follow. If BCID panel was negative (Not Detected) for all targets, this does not exclude a blood stream infection. Our blood culture system detected growth. Culture identification and susceptibility testing (if appropriate) to follow. Performed By: #### B MP, GFR, MG, ANEU, ADIFF, CBC #### [place] [address] Madelyn albicans Not detected Normal Not Detected [facility] ([place]) Comment on above: Performed By: #### B MP, GFR, MG, ANEU, ADIFF, CBC #### [place] [address] Madelyn auris Not detected Normal Not Detected [facility] ([place]) Comment on above: Performed By: #### B MP, GFR, MG, ANEU, ADIFF, CBC #### [place] [address] Madelyn glabrata Not detected Normal Not Detected [facility] ([place] Comment on above: Performed By: #### B MP, GFR, MG, ANEU, ADIFF, CBC #### [place] [address] Madelyn krusei Not detected Normal Not Detected [facility] ([place] Comment on above: Performed By: #### B MP, GFR, MG, ANEU, ADIFF, CBC #### [place] [address] Madelyn parapsilosis Not detected Normal Not Detected [facility] ([place] Comment on above: Performed By: #### B MP, GFR, MG, ANEU, ADIFF, CBC #### [place] [address] Madelyn tropicalis Not detected Normal Not Detected [facility] ([place] Comment on above: Performed By: #### B MP, GFR, MG, ANEU, ADIFF, CBC #### [place] [id number] Cryptococcus neoformans-gattii Not detected Normal Not Detected [facility] ([place] Comment on above: Performed By: #### B MP, GFR, MG, ANEU, ADIFF, CBC #### [place] [address] CTX-M (ESBL) Detected Abnormal Not Detected [facility] ([place]) Comment on above: Performed By: #### B MP, GFR, MG, ANEU, ADIFF, CBC #### [place] [address] E. Coli Detected Abnormal Not Detected [facility] ([place] Comment on above: Performed By: #### B MP, GFR, MG, ANEU, ADIFF, CBC #### [place] [address] Enterobacter cloacae Complex Not detected Normal Not Detected [facility] ([place] Comment on above: Performed By: #### B MP, GFR, MG, ANEU, ADIFF, CBC #### [place] [address] Enterobacterales Detected Abnormal Not Detected [facility] ([place] Comment on above: Performed By: #### B MP, GFR, MG, ANEU, ADIFF, CBC #### [place] [address] Enterococcus faecalis Not detected Normal Not Detected [facility] ([place] Comment on above: Performed By: #### B MP, GFR, MG, ANEU, ADIFF, CBC #### [place] [address] Enterococcus faecium Not detected Normal Not Detected [facility] ([place] Comment on above: Performed By: #### B MP, GFR, MG, ANEU, ADIFF, CBC #### [place] [address] Haemophilus influenzae Not detected Normal Not Detected [facility] ([place] Comment on above: Performed By: #### B MP, GFR, MG, ANEU, ADIFF, CBC #### [place] [address] IMP (Carbapenemase) Not detected Normal Not Detected [facility] ([place] Comment on above: Performed By: #### B MP, GFR, MG, ANEU, ADIFF, CBC #### [place] [address] Klebsiella aerogenes Not detected Normal Not Detected [facility] ([place] Comment on above: Performed By: #### B MP, GFR, MG, ANEU, ADIFF, CBC #### [place] [address] Klebsiella oxytoca Not detected Normal Not Detected [facility] ([place] Comment on above: Performed By: #### B MP, GFR, MG, ANEU, ADIFF, CBC #### [place] [id number] Klebsiella pneumoniae group Not detected Normal Not Detected [facility] ([place] Comment on above: Performed By: #### B MP, GFR, MG, ANEU, ADIFF, CBC #### [place] [address] KPC (Carbapenemase) Not detected Normal Not Detected [facility] ([place]) Comment on above: Performed By: #### B MP, GFR, MG, ANEU, ADIFF, CBC #### [place] [address] Listeria monocytogenes Not detected Normal Not Detected [facility] ([place] Comment on above: Performed By: #### B MP, GFR, MG, ANEU, ADIFF, CBC #### [place] [address] MCR-1 (Colistin Resistance) Not detected Normal Not Detected [facility] ([place]) Comment on above: Performed By: #### B MP, GFR, MG, ANEU, ADIFF, CBC #### [address] [address] Mec A/C Not Applicable Normal Not Detected [facility] ([place]) Comment on above: Performed By: #### B MP, GFR, MG, ANEU, ADIFF, CBC #### [place] [address] Mec A/C-MREJ (MRSA) Not Applicable Normal Not Detected [facility] ([place]) Comment on above: Performed By: #### B MP, GFR, MG, ANEU, ADIFF, CBC #### [place] [address] NDM (Carbapenemase) Not detected Normal Not Detected [facility] ([place]) Comment on above: Performed By: #### B MP, GFR, MG, ANEU, ADIFF, CBC #### [place] [address] Neisseria meningitidis (Encapsalated) Not detected Normal Not Detected [facility] ([place]) Comment on above: Performed By: #### B MP, GFR, MG, ANEU, ADIFF, CBC #### [place] [address] OXA-48 like (Carbapenemase) Not detected Normal Not Detected [facility] ([place]) Comment on above: Performed By: #### B MP, GFR, MG, ANEU, ADIFF, CBC #### [place] [address] Proteus Not detected Normal Not Detected [facility] ([place] Comment on above: Performed By: #### B MP, GFR, MG, ANEU, ADIFF, CBC #### [place] [address] Pseudomonas aeruginosa Not detected Normal Not Detected [facility] ([place] Comment on above: Performed By: #### B MP, GFR, MG, ANEU, ADIFF, CBC #### [place] [address] S. agalactiae Org specific cx Ql (Vag fld) Not detected Normal Not Detected [facility] ([place]) Comment on above: Performed By: #### B MP, GFR, MG, ANEU, ADIFF, CBC #### [place] [address] Salmonella species Not detected Normal Not Detected [facility] ([place] Comment on above: Performed By: #### B MP, GFR, MG, ANEU, ADIFF, CBC #### [place] [address] Serratia marcescens Not detected Normal Not Detected [facility] ([place] Comment on above: Performed By: #### B MP, GFR, MG, ANEU, ADIFF, CBC #### [place] [address] Staphylococcus Not detected Normal Not Detected [facility] ([place] Comment on above: Performed By: #### B MP, GFR, MG, ANEU, ADIFF, CBC #### [place] [address] Staphylococcus aureus Not detected Normal Not Detected [facility] ([place] Comment on above: Result Comment: If S taphylococcus aureus is Detected, an Infectious Disease physician consult is required on identification. Performed By: #### B MP, GFR, MG, ANEU, ADIFF, CBC #### [place] [address] Staphylococcus epidermidis Not detected Normal Not Detected [facility] ([place] Comment on above: Performed By: #### B MP, GFR, MG, ANEU, ADIFF, CBC #### [place] [address] Staphylococcus lugdunensis Not detected Normal Not Detected [facility] ([place] Comment on above: Performed By: #### B MP, GFR, MG, ANEU, ADIFF, CBC #### [place] [address] Stenotrophomonas maltophilia Not detected Normal Not Detected [facility] ([place] Comment on above: Performed By: #### B MP, GFR, MG, ANEU, ADIFF, CBC #### [place] [id number] Streptococcus Not detected Normal Not Detected [facility] ([place] Comment on above: Performed By: #### B MP, GFR, MG, ANEU, ADIFF, CBC #### [place] [address] Streptococcus pneumoniae Not detected Normal Not Detected [facility] ([place] Comment on above: Performed By: #### B MP, GFR, MG, ANEU, ADIFF, CBC #### [facility] [address] [place] [address] Streptococcus pyogenes Not detected Normal Not Detected [facility] ([place]) Comment on above: Performed By: #### B MP, GFR, MG, ANEU, ADIFF, CBC #### [facility] [address] [place] [address] Van A/B Not Applicable Normal Not Detected [facility] ([place]) Comment on above: Performed By: #### B MP, GFR, MG, ANEU, ADIFF, CBC #### [facility] [address] [place] [address] VIM (Carbapenemase) Not detected Normal Not Detected [facility] ([place]) Comment on above: Performed By: #### B MP, GFR, MG, ANEU, ADIFF, CBC #### [facility] [address] [place] [address] Basophil percentageOrdered B y: Clifford Hernandez on 08-13-2023 Lactate [Moles/Vol] 5.0 mmol/L 0.4-2.0 [facility] Comment on above: Critical Result(s) C alled at: 11:06:07 08/13/2023 by: Symone tran [facility]. Results read back by same. Bilirubin [Mass/Vol] 1.20 mg/dL 0.20-1.00 [facility] Comment on above: For patients on eltr ombopag therapy, use of Dimension [place] TBIL is not recommended. Protein [Mass/Vol] 7.4 g/dL 6.4-8.2 [facility] - Chemistry and C hemistry - challengeOrdered By: Clifford Hernandez on 08-13-2023 ALP [Catalytic activity/Vol] 129 U/L 45-117 [facility] ALT [Catalytic activity/Vol] 11 U/L 13-56 [facility] Globulin (S) [Mass/Vol] 5.4 g/dL 2.2-4.2 [facility] No Panel InformationOrdered By: Cholo Piper on 08-13-2023 Hepatitis A IgM Antibody Negative Negative [facility] Hepatitis B Core IgM Antibody Negative Negative [facility] Hepatitis C Antibody (EIA) Non-Reactive Non Reactive [facility] Hepatitis C Antibody Comment Comment . [facility] Comment on above: Not infected with HC V unless early or acute infection issuspected (which may be delayed in an immunocompromisedindividual), or other evidence exists to indicate HCVinfection.Performed at: [facility] [id number] Director: Ludwig Clay PhD, Phone: [phone] Serum or plasma albumin avtar urement (mass/volume)Ordered By: Clifford Hernandez on 08-13-2023 Albumin [Mass/Vol] 2.0 g/dL 3.2-5.0 [facility] Serum or plasma albumin/glob ulin mass ratioOrdered By: Clifford Hernandez on 08-13-2023 Albumin/Globulin [Mass ratio] 0.4 {ratio} 0.9-2.4 [facility] Serum or plasma hepatitis B virus surface antigen detection by immunoassayOrdered By: Cholo Piper on 08-13-2023 HBV surface Ag IA Ql Negative Negative [facility] Thin prep Papanicolaou smear with manual screeningOrdered By: Clifford Hernandez on 08-13-2023 Thin prep Papanicolaou smear with manual screening 19 U/L 15-37 [facility] .Auto Diffon 08-12-2023 Basophil, Absolute 0.0 10 3/mcL Normal 0.0-0.2 [facility] ([place]) Comment on above: Performed By: #### B MP, GFR, MG, ANEU, ADIFF, CBC #### [address] [address] Basophils/100 WBC (Bld) 0.4 % Normal 0.0-2.5 [facility] ([place]) Comment on above: Performed By: #### B MP, GFR, MG, ANEU, ADIFF, CBC #### [address] [address] Eosinophil, Absolute 0.1 10 3/mcL Normal 0.0-0.4 [facility] ([place]) Comment on above: Performed By: #### B MP, GFR, MG, ANEU, ADIFF, CBC #### [address] [address] Eosinophils/100 WBC (Bld) 0.9 % Normal 0.0-7.0 [facility] ([place]) Comment on above: Performed By: #### B MP, GFR, MG, ANEU, ADIFF, CBC #### [address] [address] Lymphocyte, Absolute 0.5 10 3/mcL Low 0.8-3.9 [facility] ([place]) Comment on above: Performed By: #### B MP, GFR, MG, ANEU, ADIFF, CBC #### [address] [address] Lymphocytes/100 WBC (Bld) 5.3 % Low 10.0-50.0 [facility] ([place]) Comment on above: Performed By: #### B MP, GFR, MG, ANEU, ADIFF, CBC #### [address] [address] Monocyte, Absolute 0.4 10 3/mcL Normal 0.2-1.0 [facility] ([place]) Comment on above: Performed By: #### B MP, GFR, MG, ANEU, ADIFF, CBC #### [address] [address] Monocytes/100 WBC (Bld) 3.8 % Normal 1.7-13.0 [facility] ([place]) Comment on above: Performed By: #### B MP, GFR, MG, ANEU, ADIFF, CBC #### [address] [address] Neutrophils/100 WBC (Bld) 89.6 % High 37.0-80.0 [facility] ([place]) Comment on above: Performed By: #### B MP, GFR, MG, ANEU, ADIFF, CBC #### [address] [address] .GFRon 08-12-2023 GFR 14 ml/min/1.73sqm Normal [facility] ([place]) Comment on above: Result Comment: GFR Population mean for , Non- Americans Ages 20-29 = 116 mL/min/1.73 sq.m. Ages 30-39 = 107 mL/min/1.73 sq.m. Ages 40-49 = 99 mL/min/1.73 sq.m. Ages 50-59 = 93 mL/min/1.73 sq.m. Ages 60-69 = 85 mL/min/1.73 sq.m. Ages 70+ = 75 mL/min/1.73 sq.m. Chronic Kidney Disease: Less than 60 mL/min/1.73 square meters End Stage Renal Disease: Less than 15 mL/min/1.73 square meters Performed By: #### B MP, GFR, MG, ANEU, ADIFF, CBC #### [address] [address] GFR Non- 12 ml/min/1.73sqm Normal [facility] ([place]) Comment on above: Result Comment: GFR Population mean for , Non- Americans Ages 20-29 = 116 mL/min/1.73 sq.m. Ages 30-39 = 107 mL/min/1.73 sq.m. Ages 40-49 = 99 mL/min/1.73 sq.m. Ages 50-59 = 93 mL/min/1.73 sq.m. Ages 60-69 = 85 mL/min/1.73 sq.m. Ages 70+ = 75 mL/min/1.73 sq.m. Chronic Kidney Disease: Less than 60 mL/min/1.73 square meters End Stage Renal Disease: Less than 15 mL/min/1.73 square meters Performed By: #### B MP, GFR, MG, ANEU, ADIFF, CBC #### [address] [address] .MDWon 08-12-2023 Monocyte Distribution Width 28.02 High 0.00-20.00 [facility] ([place]) Comment on above: Result Comment: For adults in ED, MDW>20.0 may be associated with a higher risk of sepsis during the first 12hrs of hospital admission Performed By: #### B MP, GFR, MG, ANEU, ADIFF, CBC #### [address] [address] .NEUABSon 08-12-2023 Neutrophil, Absolute 9.0 10 3/mcL High 2.9-6.2 [facility] ([place]) Comment on above: Performed By: #### B MP, GFR, MG, ANEU, ADIFF, CBC #### [place] [address] .Urinalysis Microscopic (AO) on 08-12-2023 UA Bacteria 1+ /hpf Abnormal [facility] ([place]) Comment on above: Performed By: #### B MP, GFR, MG, ANEU, ADIFF, CBC #### [place] [address] UA Fine Granular Casts 0-5 Abnormal [facility] ([place] Comment on above: Performed By: #### B MP, GFR, MG, ANEU, ADIFF, CBC #### [place] [address] UA RBC 10-[address] [facility] ([place]) Comment [place] above: Performed By: #### B MP, GFR, MG, ANEU, ADIFF, CBC #### [place] [address] UA Squam Epithelial 0-5 Abnormal None Seen [facility] ([place]) Comment on above: Performed By: #### B MP, GFR, MG, ANEU, ADIFF, CBC #### [place] [address] UA WBC LOADED Abnormal None Seen [facility] ([place] Comment on above: Performed By: #### B MP, GFR, MG, ANEU, ADIFF, CBC #### [place] [address] CBCon 08-12-2023 Erythrocyte distribution width (RBC) [Ratio] 15.4 % High 11.5-14.5 [facility] ([place]) Comment on above: Performed By: #### B MP, GFR, MG, ANEU, ADIFF, CBC #### [place] [address] Hematocrit (Bld) [Volume fraction] 34.4 % Low 37.0-47.0 [facility] ([place]) Comment on above: Performed By: #### B MP, GFR, MG, ANEU, ADIFF, CBC #### [place] [address] Hgb 11.4 G/dL Low 12.0-16.0 [facility] ([place] Comment on above: Performed By: #### B MP, GFR, MG, ANEU, ADIFF, CBC #### [place] [address] MCH (RBC) [Entitic mass] 28.5 pg Normal 27.0-31.2 [facility] ([place]) Comment on above: Performed By: #### B MP, GFR, MG, ANEU, ADIFF, CBC #### [place] [address] MCHC 33.1 G/dL Normal 33.0-37.0 [facility] ([place]) Comment on above: Performed By: #### B MP, GFR, MG, ANEU, ADIFF, CBC #### [place] [address] MCV (RBC) [Entitic vol] 86.2 fL Normal 80.0-94.0 [facility] ([place]) Comment on above: Performed By: #### B MP, GFR, MG, ANEU, ADIFF, CBC #### [place] [address] Platelet 113 10 3/mcL Low 130-400 [facility] ([place]) Comment on above: Performed By: #### B MP, GFR, MG, ANEU, ADIFF, CBC #### [place] [address] Platelet mean volume (Bld) [Entitic vol] 8.4 fL Normal 7.4-10.4 [facility] ([place]) Comment on above: Performed By: #### B MP, GFR, MG, ANEU, ADIFF, CBC #### [place] [address] RBC 4.00 10 6/mcL Low 4.20-5.40 [facility] ([place]) Comment on above: Performed By: #### B MP, GFR, MG, ANEU, ADIFF, CBC #### [place] [address] WBC 10.0 10 3/mcL Normal 4.6-10.8 [facility] ([place]) Comment on above: Performed By: #### B MP, GFR, MG, ANEU, ADIFF, CBC #### [address] [address] CMPon 08-12-2023 ALT [Catalytic activity/Vol] 12 U/L Low 14-59 [facility] ([place]) Comment on above: Performed By: #### B MP, GFR, MG, ANEU, ADIFF, CBC #### [address] [address] Chloride [Moles/Vol] 89 mmol/L Low 98-107 [facility] ([place] Comment on above: Performed By: #### B MP, GFR, MG, ANEU, ADIFF, CBC #### [address] [address] CO2 [Moles/Vol] 18 mmol/L Low 22-29 [facility] ([place]) Comment on above: Performed By: #### B MP, GFR, MG, ANEU, ADIFF, CBC #### [address] [address] Electrolyte Balance 18.0 mEq/L High 4.0-15.0 [facility] ([place]) Comment on above: Performed By: #### B MP, GFR, MG, ANEU, ADIFF, CBC #### [address] [address] Potassium [Moles/Vol] 4.8 mmol/L Normal 3.5-5.1 [facility] ([place]) Comment on above: Performed By: #### B MP, GFR, MG, ANEU, ADIFF, CBC #### [address] [address] Sodium [Moles/Vol] 125 mmol/L Low 136-145 [facility] ([place]) Comment on above: Performed By: #### B MP, GFR, MG, ANEU, ADIFF, CBC #### [address] [address] Albumin Level 2.5 G/dL Low 3.5-5.0 [facility] ([place]) Comment on above: Performed By: #### B MP, GFR, MG, ANEU, ADIFF, CBC #### [address] [address] Albumin/Globulin [Mass ratio] 0.4 {ratio} Low 1.1-2.5 [facility] ([place]) Comment on above: Performed By: #### B MP, GFR, MG, ANEU, ADIFF, CBC #### [address] [address] ALP [Catalytic activity/Vol] 155 U/L High 40-135 [facility] ([place]) Comment on above: Performed By: #### B MP, GFR, MG, ANEU, ADIFF, CBC #### [place] [phone] AST [Catalytic activity/Vol] 15 U/L Normal 10-40 [facility] ([place]) Comment on above: Performed By: #### B MP, GFR, MG, ANEU, ADIFF, CBC #### [place] [phone] Bili Total 1.3 mg/dL High 0.2-1.0 [facility] ([place]) Comment on above: Result Comment: Use of this assay is not recommended for patients undergoing treatment with eltrombopag due to the potential for falsely elevated results. Performed By: #### B MP, GFR, MG, ANEU, ADIFF, CBC #### [place] [phone] BUN/Creatinine Ratio 8 ratio Normal 7-27 [facility] ([place] Comment on above: Performed By: #### B MP, GFR, MG, ANEU, ADIFF, CBC #### [address] [address] Calcium [Mass/Vol] 8.1 mg/dL Low 8.4-10.2 [facility] ([place]) Comment on above: Performed By: #### B MP, GFR, MG, ANEU, ADIFF, CBC #### [address] [address] Creatinine [Mass/Vol] 3.91 mg/dL High 0.55-1.02 [facility] ([place]) Comment on above: Performed By: #### B MP, GFR, MG, ANEU, ADIFF, CBC #### [address] [address] Globulin 5.9 G/dL Normal [facility] ([place]) [place] above: Performed By: #### B MP, GFR, MG, ANEU, ADIFF, CBC #### [address] [address] Glucose [Mass/Vol] 285 mg/dL High 70-105 [facility] ([place]) Comment on above: Performed By: #### B MP, GFR, MG, ANEU, ADIFF, CBC #### [address] [address] Total Protein 8.4 G/dL High 6.4-8.2 [facility] ([place]) Comment on above: Performed By: #### B MP, GFR, MG, ANEU, ADIFF, CBC #### [address] [address] Urea nitrogen [Mass/Vol] 33 mg/dL High 7-18 [facility] ([place]) Comment on above: Performed By: #### B MP, GFR, MG, ANEU, ADIFF, CBC #### [address] [address] [address] ABDOMEN/PELVIS W/O CONTRA STon 08-12-2023 CT ABDOMEN/PELVIS W/O CONTRAST ORIGINAL EXAMINATION: CT OF THE ABDOMEN AND PELVIS WITHOUT [id number]/24/2023 3:14 pm TECHNIQUE: CT of the abdomen and pelvis was performed without the administration of intravenous contrast. Multiplanar reformatted images are provided for review. Automated exposure control, iterative reconstruction, and/or weight based adjustment of the mA/kV was utilized to reduce the radiation dose to as low as reasonably achievable. COMPARISON: None HISTORY: ORDERING SYSTEM PROVIDED HISTORY: Reason for Exam: unable to urinate x2 days. recent kidney infection. pain FINDINGS: There is no evidence of pulmonary nodule or pleural effusion at the level of the lung bases. The liver has a lobular contour with hypertrophy of the left hepatic lobe. There is splenomegaly with multiple small portal splenic varices and recanalization of the umbilical vein. No gross focal hepatic lesion is identified. There is peripheral calcification of the gallbladder with increased attenuation of the bile at 32 Hounsfield units. There is no evidence of pericholecystic fluid. Fatty atrophic changes are present in the pancreas. The adrenal glands are not enlarged. There is no evidence of right-sided hydronephrosis, hydroureter or renal lesion. There is edematous low-attenuation of the left kidney with left Joanne nephric fat stranding and left periureteral fat stranding. There is no evidence of hydronephrosis or perinephric fluid collection. Mitchell catheter has been placed into the urinary bladder lumen. No focal bladder abnormality is identified. The uterus and adnexa are unremarkable. Lack of oral contrast limits evaluation of the large and small bowel. There is no gross evidence of bowel obstruction. There is no evidence of a dilated vermiform appendix. No free intraperitoneal fluid or air is identified. There is no gross evidence of abdominal or pelvic lymph node enlargement. Bone windows reveal no evidence of acute fracture or osteolytic/osteoblastic lesion. Moderate degenerative changes are present at L5-S1. Mild left sacroiliac joint degenerative changes are present. IMPRESSION: Left renal enlargement with perinephric and joanne-ureteral fat stranding but no evidence of acute urinary obstruction. Findings suggest pyelonephritis. Findings consistent with cirrhosis with portal venous hypertension and splenomegaly. Porcelain gallbladder. Interpreted by: Sav Mahoney Preliminary Report By: Sav Mahoney Electronically signed By Sav Mahoney Dictated Date: 08/12/2023 3:19:51 PM Prelim Date: 08/12/2023 3:25:34 PM Sign Date: 08/12/2023 3:25:34 PM Ordering Provider: KATELYNN NOEL [facility] ([place]) LABORATORYOrdered By: SYSTEM SYSTEM on 08-12-2023 Lactate [Moles/Vol] 5.1 mmol/L Invalid Interpretation Code 0.4 - 2.0 mmol/L AO ADM SS Lactate [Moles/Vol] 6.4 mmol/L Invalid Interpretation Code 0.4 - 2.0 mmol/L AO ADM SS Albumin BCP dye [Mass/Vol] 2.5 G/dL Invalid Interpretation Code 3.5 - 5.0 G/dL AO ADM SS Albumin/Globulin [Mass ratio] 0.4 {ratio} Invalid Interpretation Code 1.1 - 2.5 ratio AO ADM SS ALP [Catalytic activity/Vol] 155 U/L Invalid Interpretation Code 40 - 135 U/L AO ADM SS ALT With P-5'-P [Catalytic activity/Vol] 12 U/L Invalid Interpretation Code 14 - 59 U/L AO ADM SS AST With P-5'-P [Catalytic activity/Vol] 15 U/L Invalid Interpretation Code 10 - 40 U/L AO ADM SS Basophil, Absolute 0.0 103/mcL Invalid Interpretation Code 0.0 - 0.2 10^3/mcL AO Workflow SS Basophils/100 WBC (Bld) 0.4 % Invalid Interpretation Code 0.0 - 2.5 % AO Workflow SS Bilirubin [Mass/Vol] 1.3 mg/dL Invalid Interpretation Code 0.2 - 1.0 mg/dL AO ADM SS Comment on above: Interpretive Data: U se of this assay is not recommended for patients undergoing treatment with eltrombopag due to the potential for falsely elevated results. Calcium [Mass/Vol] 8.1 mg/dL Invalid Interpretation Code 8.4 - 10.2 mg/dL AO ADM SS Chloride [Moles/Vol] 89 mmol/L Invalid Interpretation Code 98 - 107 mmol/L AO ADM SS CO2 [Moles/Vol] 18 mmol/L Invalid Interpretation Code 22 - 29 mmol/L AO ADM SS Creatinine [Mass/Vol] 3.91 mg/dL Invalid Interpretation Code 0.55 - 1.02 mg/dL AO ADM SS Electrolyte Balance 18.0 mEq/L Invalid Interpretation Code 4.0 - 15.0 mEq/L AO ADM SS Eosinophil, Absolute 0.1 103/mcL Invalid Interpretation Code 0.0 - 0.4 10^3/mcL AO Workflow SS Eosinophils/100 WBC (Bld) 0.9 % Invalid Interpretation Code 0.0 - 7.0 % AO Workflow SS Erythrocyte distribution width (RBC) [Ratio] 15.4 % Invalid Interpretation Code 11.5 - 14.5 % AO Workflow SS GFR/1.73 sq M.predicted among blacks MDRD (S/P/Bld) [Vol rate/Area] 14 ml/min/1.73sqm Invalid Interpretation Code AO Chemistry S Comment on above: Interpretive Data: GFR Population mean for , Non- Americans Ages 20-29 = 116 mL/min/1.73 sq.m. Ages 30-39 = 107 mL/min/1.73 sq.m. Ages 40-49 = 99 mL/min/1.73 sq.m. Ages 50-59 = 93 mL/min/1.73 sq.m. Ages 60-69 = 85 mL/min/1.73 sq.m. Ages 70+ = 75 mL/min/1.73 sq.m. Chronic Kidney Disease: Less than 60 mL/min/1.73 square meters End Stage Renal Disease: Less than 15 mL/min/1.73 square meters GFR/1.73 sq M.predicted among non-blacks MDRD (S/P/Bld) [Vol rate/Area] 12 ml/min/1.73sqm Invalid Interpretation Code AO Chemistry S Comment on above: Interpretive Data: GFR Population mean for , Non- Americans Ages 20-29 = 116 mL/min/1.73 sq.m. Ages 30-39 = 107 mL/min/1.73 sq.m. Ages 40-49 = 99 mL/min/1.73 sq.m. Ages 50-59 = 93 mL/min/1.73 sq.m. Ages 60-69 = 85 mL/min/1.73 sq.m. Ages 70+ = 75 mL/min/1.73 sq.m. Chronic Kidney Disease: Less than 60 mL/min/1.73 square meters End Stage Renal Disease: Less than 15 mL/min/1.73 square meters Globulin 5.9 G/dL Invalid Interpretation Code AO ADM SS Glucose [Mass/Vol] 285 mg/dL Invalid Interpretation Code 70 - 105 mg/dL AO ADM SS Hematocrit (Bld) [Volume fraction] 34.4 % Invalid Interpretation Code 37.0 - 47.0 % AO Workflow SS Hemoglobin (Bld) [Mass/Vol] 11.4 G/dL Invalid Interpretation Code 12.0 - 16.0 G/dL AO Workflow SS Lactate [Moles/Vol] 6.3 mmol/L Invalid Interpretation Code 0.4 - 2.0 mmol/L AO ADM SS Lipase [Catalytic activity/Vol] 22 U/L Invalid Interpretation Code 16 - 77 U/L AO ADM SS Lymphocyte, Absolute 0.5 103/mcL Invalid Interpretation Code 0.8 - 3.9 10^3/mcL AO Workflow SS Lymphocytes/100 WBC (Bld) 5.3 % Invalid Interpretation Code 10.0 - 50.0 % AO Workflow SS MCH (RBC) [Entitic mass] 28.5 pg Invalid Interpretation Code 27.0 - 31.2 pg AO Workflow SS MCHC 33.1 G/dL Invalid Interpretation Code 33.0 - 37.0 G/dL AO Workflow SS MCV (RBC) [Entitic vol] 86.2 fL Invalid Interpretation Code 80.0 - 94.0 fL AO Workflow SS Monocyte distribution width Auto (Bld) [Entitic vol] 28.02 1 Invalid Interpretation Code 0.00 - 20.00 AO Workflow SS Comment on above: Result Comment: For adults in ED, MDW>20.0 may be associated with a higher risk of sepsis during the first 12hrs of hospital admission Monocyte, Absolute 0.4 103/mcL Invalid Interpretation Code 0.2 - 1.0 10^3/mcL AO Workflow SS Monocytes/100 WBC (Bld) 3.8 % Invalid Interpretation Code 1.7 - 13.0 % AO Workflow SS Natriuretic peptide.B prohormone N-Terminal [Mass/Vol] 3252 pg/mL Invalid Interpretation Code 0 - 125 pg/mL AO ADM SS Comment on above: Interpretive Data: N T-proBNP results of less than 300 pg/mL effectively rules out acute congestive heart failure with 99% negative predictive value. Neutrophil, Absolute 9.0 103/mcL Invalid Interpretation Code 2.9 - 6.2 10^3/mcL AO Workflow SS Neutrophils/100 WBC (Bld) 89.6 % Invalid Interpretation Code 37.0 - 80.0 % AO Workflow SS Platelet mean volume (Bld) [Entitic vol] 8.4 fL Invalid Interpretation Code 7.4 - 10.4 fL AO Workflow SS Platelets (Bld) [#/Vol] 113 103/mcL Invalid Interpretation Code 130 - 400 10^3/mcL AO Workflow SS Potassium [Moles/Vol] 4.8 mmol/L Invalid Interpretation Code 3.5 - 5.1 mmol/L AO ADM SS Protein [Mass/Vol] 8.4 G/dL Invalid Interpretation Code 6.4 - 8.2 G/dL AO ADM SS RBC (Bld) [#/Vol] 4.00 106/mcL Invalid Interpretation Code 4.20 - 5.40 10^6/mcL AO Workflow SS Sodium [Moles/Vol] 125 mmol/L Invalid Interpretation Code 136 - 145 mmol/L AO ADM SS Troponin I.cardiac DL <= 0.01 ng/mL [Mass/Vol] 7.2 ng/L Invalid Interpretation Code 0.0 - 51.4 ng/L AO ADM SS Urea nitrogen [Mass/Vol] 33 mg/dL Invalid Interpretation Code 7 - 18 mg/dL AO ADM SS Urea nitrogen/Creatinine [Mass ratio] 8 ratio Invalid Interpretation Code 7 - 27 ratio AO ADM SS WBC (Bld) [#/Vol] 10.0 103/mcL Invalid Interpretation Code 4.6 - 10.8 10^3/mcL AO Workflow SS LABORATORYOrdered By: Sunshine Brandon on 08-12-2023 Appearance (U) Turbid *ABN* (08/12/23 1:49 PM) Invalid Interpretation Code Clear AO Auto Urine SS Bacteria LM.HPF (Urine sed) [#/Area] 1 /[HPF] Invalid Interpretation Code AO Auto Urine SS Bilirubin Ql (U) Small *ABN* (08/12/23 1:49 PM) Invalid Interpretation Code Negative AO Auto Urine SS Color (U) Faye Invalid Interpretation Code AO Auto Urine SS Glucose Test strip (U) [Mass/Vol] Negative Invalid Interpretation Code Negative AO Auto Urine SS Hemoglobin Auto test strip (U) [Mass/Vol] Large *ABN* (08/12/23 1:49 PM) Invalid Interpretation Code Negative AO Auto Urine SS Ketones Ql (U) Trace mg/dL Invalid Interpretation Code Negative AO Auto Urine SS UA Fine Granular Casts 0-5 /LPF Invalid Interpretation Code AO Auto Urine SS UA Leuk Est Large *ABN* (08/12/23 1:49 PM) Invalid Interpretation Code Negative AO Auto Urine SS UA Nitrite Positive *ABN* (08/12/23 1:49 PM) Invalid Interpretation Code Negative AO Auto Urine SS UA pH 5.5 (08/12/23 1:49 PM) Invalid Interpretation Code 5.0 - 8.0 AO Auto Urine SS UA Protein >=300 mg/dL Invalid Interpretation Code Negative AO Auto Urine SS UA RBC 10-15 /HPF Invalid Interpretation Code None Seen AO Auto Urine SS UA Spec Grav >=1.030 *ABN* (08/12/23 1:49 PM) Invalid Interpretation Code 1.015-1.025 AO Auto Urine SS UA Specimen Type Catheter (08/12/23 1:49 PM) Invalid Interpretation Code AO Auto Urine SS UA Squam Epithelial 0-5 /HPF Invalid Interpretation Code None Seen AO Auto Urine SS UA Urobilinogen 1.0 E.U./dL Invalid Interpretation Code 0.2-1.0 AO Auto Urine SS WBC LM.HPF (Urine sed) [#/Area] LOADED /HPF Invalid Interpretation Code None Seen AO Auto Urine SS LABORATORYOrdered By: Deborah Sidhu on 08-12-2023 INR Coag (PPP) [Relative time] 1.9 {INR} Invalid Interpretation Code AO [facility] SS Comment on above: Interpretive Data: Faith bob [employer] (CHEST, 1991, 102:312S-25S) recommended therapeutic range for oral anticoagulant therapy is: LOW RISK: Prophylaxis of venous thrombosis INR: 2.0-3.0 Treatment of pulmonary embolism 2.0-3.0 Prevention of systemic embolism 2.0-3.0 HIGH RISK: Mechanical prosthetic valves 2.5-3.5 PT Coag (PPP) [Time] 22.2 s Invalid Interpretation Code 9.0 - 14.2 seconds AO [facility] SS LACon 08-12-2023 Lactic Acid Lvl 5.1 mmol/L High 0.4-2.0 [facility] ([place]) Comment on above: Performed By: #### B MP, GFR, MG, ANEU, ADIFF, CBC #### [address] [address] Lactic Acid Lvl 6.4 mmol/L High 0.4-2.0 [facility] ([place]) Comment on above: Order Comment: Order ed secondary to Lactic Acid result greater than or equal to 2.0 Performed By: #### A ALEKS DANG, GFR, ADIFF, BMP, CBC #### [id number] [place], [place] [address] Lactic Acid Lvl 6.3 mmol/L High 0.4-2.0 [facility] ([place]) Comment on above: Performed By: #### B MP, GFR, MG, ANEU, ADIFF, CBC #### [address] [address] LIPon 08-12-2023 Lipase Level 22 U/L Normal 16-77 [facility] ([place]) Comment on above: Performed By: #### B MP, GFR, MG, ANEU, ADIFF, CBC #### [address] [address] No Panel Informationon 08-12 Microscopic examination of blood, culture Culture has been received in lab and is no growth to date. Routine cultures are held for [address] [facility] Work Phone: PBNPon 08-12-2023 Natriuretic peptide B (Bld) [Mass/Vol] 3252 pg/mL High 0-125 [facility] ([place]) Comment on above: Result Comment: NT-p roBNP results of less than 300 pg/mL effectively rules out acute congestive heart failure with 99% negative predictive value. Performed By: #### B MP, GFR, MG, ANEU, ADIFF, CBC #### [place] [address] PROon 08-12-2023 PT Coag (PPP) [Time] 22.2 s High 9.0-14.2 [facility] ([place]) Comment on above: Performed By: #### B MP, GFR, MG, ANEU, ADIFF, CBC #### [place] [address] PT International Ratio 1.9 Normal [facility] ([place]) Comment on above: Result Comment: [employer] (CHEST, 1992, 102:312S-25S) recommended therapeutic range for oral anticoagulant therapy is: LOW RISK: Prophylaxis of venous thrombosis INR: 2.0-3.0 Treatment of pulmonary embolism 2.0-3.0 Prevention of systemic embolism 2.0-3.0 HIGH RISK: Mechanical prosthetic valves 2.5-3.5 Performed By: #### B MP, GFR, MG, ANEU, ADIFF, CBC #### [address] [address] TROPHSon 08-12-2023 Troponin I High Sensitivity 7.2 ng/L Normal 0.0-51.4 [facility] ([place]) Comment on above: Performed By: #### B MP, GFR, MG, ANEU, ADIFF, CBC #### [place] [id number] UAon 08-12-2023 Color (U) Faye Normal [facility] ([place]) Comment on above: Performed By: #### B MP, GFR, MG, ANEU, ADIFF, CBC #### [address] [address] Glucose (U) [Mass/Vol] Negative Normal Negative [facility] ([place]) Comment on above: Performed By: #### B MP, GFR, MG, ANEU, ADIFF, CBC #### [address] [address] Ketones Ql (U) Trace Abnormal Negative [facility] ([place]) Comment on above: Performed By: #### B MP, GFR, MG, ANEU, ADIFF, CBC #### [address] [address] UA Appear Turbid Abnormal Clear [facility] ([place]) Comment on above: Performed By: #### B MP, GFR, MG, ANEU, ADIFF, CBC #### [address] [address] UA Bili Small Abnormal Negative [facility] ([place]) Comment on above: Performed By: #### B MP, GFR, MG, ANEU, ADIFF, CBC #### [address] [address] UA Blood Large Abnormal Negative [facility] ([place]) Comment on above: Performed By: #### B MP, GFR, MG, ANEU, ADIFF, CBC #### [address] [address] UA Leuk Est Large Abnormal Negative [facility] ([place]) Comment on above: Performed By: #### B MP, GFR, MG, ANEU, ADIFF, CBC #### [address] [address] UA Nitrite Positive Abnormal Negative [facility] ([place]) Comment on above: Performed By: #### B MP, GFR, MG, ANEU, ADIFF, CBC #### [address] [address] UA pH 5.5 Normal 5.0 - 8.0 [facility] ([place]) Comment on above: Performed By: #### B MP, GFR, MG, ANEU, ADIFF, CBC #### [address] [address] UA Protein >=[address] [facility] ([place] Comment on above: Performed By: #### B MP, GFR, MG, ANEU, ADIFF, CBC #### [address] [address] UA Spec Grav >=1.030 Abnormal 1.015-1.025 [facility] ([place]) Comment on above: Performed By: #### B MP, GFR, MG, ANEU, ADIFF, CBC #### [address] [address] UA Specimen Type Catheter Normal [facility] ([place]) Comment on above: Performed By: #### B MP, GFR, MG, ANEU, ADIFF, CBC #### [address] [address] UA Urobilinogen 1.0 E.U./dL Normal 0.2-1.0 [facility] ([place]) Comment on above: Performed By: #### B MP, GFR, MG, ANEU, ADIFF, CBC #### [address] [address] US ABDOMEN LIMITEDon 08-12-2 023 US ABDOMEN LIMITED ORIGINAL EXAMINATION: RIGHT UPPER QUADRANT ULTRASOUND 08/12/2023 4:26 pm COMPARISON: Limited evaluation of the abdomen on CT abdomen pelvis August 12, 2023 HISTORY: ORDERING SYSTEM PROVIDED HISTORY: Reason for Exam: [place] gallbladder seen on CT; elevated bili FINDINGS: LIVER: The liver demonstrates diffuse increased echogenicity with undulation of the capsule. BILIARY SYSTEM: Gallbladder is prominent, with echogenic wall correlating with calcification on CT. No gallstones. Negative sonographic Gastelum's sign. Common bile duct is within normal limits measuring 0.9 cm. RIGHT KIDNEY: The right kidney is grossly unremarkable without evidence of hydronephrosis. PANCREAS: Visualized portions of the pancreas are unremarkable. OTHER: No evidence of right upper quadrant ascites. IMPRESSION: Nonspecific mildly dilated common bile duct. Calcification of the gallbladder wall. No gallstones. Diffuse increased echogenicity of the liver, which can be seen in diffuse hepatocellular process. Undulating contour to the liver capsule suggestive of underlying hepatic fibrosis or cirrhosis. Interpreted by: Kyle Dang Preliminary Report By: Kyle Dang Electronically signed By Kyle Dang Dictated Date: 08/12/2023 4:27:53 PM Prelim Date: 08/12/2023 4:33:13 PM Sign Date: 08/12/2023 4:33:13 PM [facility] ([place] [place] CHEST 1 VIEWon 08-12-2023 XR CHEST 1 VIEW ORIGINAL HISTORY: Pain, fever COMPARISON: 16 November 2019 FINDINGS: The lungs and pleural spaces are clear. The cardiac silhouette is within normal limits. The pulmonary vasculature is within normal limits. IMPRESSION: Clear lungs. Interpreted by: Radhika Corona MD Preliminary Report By: Radhika Corona MD Electronically signed By Radhika Corona MD Dictated Date: 08/12/2023 2:40:57 PM Prelim Date: 08/12/2023 2:41:18 PM Sign Date: 08/12/2023 2:41:18 PM Ordering Provider: [facility] ([place]) AMPICILLIN:SUSC:PT:ISOLATE:O RDQN:MICon 06-20-2023 Ampicillin FREDIS [Susc] >100,000 cfu/ml Escherichia coli ESBL Extended-Spectrum B-Lactamase isolate may be clinically resistant to therapy with Penicillins, Cephalosporinsor Aztreonam despite apparent in vitro susceptibility to some of these agents. Use of Imipenem is currently restricted to Infectious Disease /Intensivists. Please consult Physicians accordingly. [facility] Work Phone: Ampicillin FREDIS [Susc]on Escherichia coli ESBL Escherichia coli ESBL [facility] Work Phone: .Auto Diffon 06-15-2023 Basophil, Absolute 0.0 10 3/mcL Normal 0.0-0.2 [facility] ([place] Comment on above: Performed By: #### B MP, GFR, MG, ANEU, ADIFF, CBC #### [address] [address] Basophils/100 WBC (Bld) 0.3 % Normal 0.0-2.5 A [facility] ([place]) Comment on above: Performed By: #### B MP, GFR, MG, ANEU, ADIFF, CBC #### [address] [address] Eosinophil, Absolute 0.1 10 3/mcL Normal 0.0-0.4 [facility] ([place]) Comment on above: Performed By: #### B MP, GFR, MG, ANEU, ADIFF, CBC #### [address] [address] Eosinophils/100 WBC (Bld) 1.2 % Normal 0.0-7.0 [facility] ([place]) Comment on above: Performed By: #### B MP, GFR, MG, ANEU, ADIFF, CBC #### [address] [address] Lymphocyte, Absolute 1.4 10 3/mcL Normal 0.8-3.9 [facility] ([place]) Comment on above: Performed By: #### B MP, GFR, MG, ANEU, ADIFF, CBC #### [address] [address] Lymphocytes/100 WBC (Bld) 13.0 % Normal 10.0-50.0 [facility] ([place]) Comment on above: Performed By: #### B MP, GFR, MG, ANEU, ADIFF, CBC #### [address] [address] Monocyte, Absolute 1.2 10 3/mcL High 0.2-1.0 [facility] ([place] Comment on above: Performed By: #### B MP, GFR, MG, ANEU, ADIFF, CBC #### [address] [address] Monocytes/100 WBC (Bld) 10.6 % Normal 1.7-13.0 [facility] ([place]) Comment on above: Performed By: #### B MP, GFR, MG, ANEU, ADIFF, CBC #### [address] [address] Neutrophils/100 WBC (Bld) 74.9 % Normal 37.0-80.0 [facility] ([place]) Comment on above: Performed By: #### B MP, GFR, MG, ANEU, ADIFF, CBC #### [address] [address] .GFRon 06-15-2023 GFR Non- 52 ml/min/1.73sqm Normal [facility] ([place]) Comment on above: Result Comment: GFR Population mean for , Non- Americans Ages 20-29 = 116 mL/min/1.73 sq.m. Ages 30-39 = 107 mL/min/1.73 sq.m. Ages 40-49 = 99 mL/min/1.73 sq.m. Ages 50-59 = 93 mL/min/1.73 sq.m. Ages 60-69 = 85 mL/min/1.73 sq.m. Ages 70+ = 75 mL/min/1.73 sq.m. Chronic Kidney Disease: Less than 60 mL/min/1.73 square meters End Stage Renal Disease: Less than 15 mL/min/1.73 square meters Performed By: #### B MP, GFR, MG, ANEU, ADIFF, CBC #### [address] [address] GFR 63 ml/min/1.73sqm Normal [facility] ([place]) Comment on above: Result Comment: GFR Population mean for , Non- Americans Ages 20-29 = 116 mL/min/1.73 sq.m. Ages 30-39 = 107 mL/min/1.73 sq.m. Ages 40-49 = 99 mL/min/1.73 sq.m. Ages 50-59 = 93 mL/min/1.73 sq.m. Ages 60-69 = 85 mL/min/1.73 sq.m. Ages 70+ = 75 mL/min/1.73 sq.m. Chronic Kidney Disease: Less than 60 mL/min/1.73 square meters End Stage Renal Disease: Less than 15 mL/min/1.73 square meters Performed By: #### B MP, GFR, MG, ANEU, ADIFF, CBC #### [address] [address] GFR Non- 85 ml/min/1.73sqm Normal [facility] ([place]) Comment on above: Result Comment: GFR Population mean for , Non- Americans Ages 20-29 = 116 mL/min/1.73 sq.m. Ages 30-39 = 107 mL/min/1.73 sq.m. Ages 40-49 = 99 mL/min/1.73 sq.m. Ages 50-59 = 93 mL/min/1.73 sq.m. Ages 60-69 = 85 mL/min/1.73 sq.m. Ages 70+ = 75 mL/min/1.73 sq.m. Chronic Kidney Disease: Less than 60 mL/min/1.73 square meters End Stage Renal Disease: Less than 15 mL/min/1.73 square meters Performed By: #### B MP, GFR, MG, ANEU, ADIFF, CBC #### [address] [address] GFR 104 ml/min/1.73sqm Normal [facility] ([place]) Comment on above: Result Comment: GFR Population mean for , Non- Americans Ages 20-29 = 116 mL/min/1.73 sq.m. Ages 30-39 = 107 mL/min/1.73 sq.m. Ages 40-49 = 99 mL/min/1.73 sq.m. Ages 50-59 = 93 mL/min/1.73 sq.m. Ages 60-69 = 85 mL/min/1.73 sq.m. Ages 70+ = 75 mL/min/1.73 sq.m. Chronic Kidney Disease: Less than 60 mL/min/1.73 square meters End Stage Renal Disease: Less than 15 mL/min/1.73 square meters Performed By: #### B MP, GFR, MG, ANEU, ADIFF, CBC #### [address] [address] .NEUABSon 06-15-2023 Neutrophil, Absolute 8.2 10 3/mcL High 2.9-6.2 [facility] ([place]) Comment on above: Performed By: #### B MP, GFR, MG, ANEU, ADIFF, CBC #### [address] [address] BMPon 06-15-2023 BUN/Creatinine Ratio 24 ratio Normal 05-15 [facility] ([place]) Comment on above: Performed By: #### B MP, GFR, MG, ANEU, ADIFF, CBC #### [address] [address] Electrolyte Balance 8.0 mEq/L Normal 4.0-15.0 [facility] ([place]) Comment on above: Performed By: #### B MP, GFR, MG, ANEU, ADIFF, CBC #### [address] [address] Calcium [Mass/Vol] 7.4 mg/dL Low 8.4-10.2 [facility] ([place]) Comment on above: Performed By: #### B MP, GFR, MG, ANEU, ADIFF, CBC #### [address] [address] Chloride [Moles/Vol] 105 mmol/L Normal 98-107 [facility] ([place] Comment on above: Performed By: #### B MP, GFR, MG, ANEU, ADIFF, CBC #### [address] [address] CO2 [Moles/Vol] 27 mmol/L Normal 22-29 [facility] ([place]) Comment on above: Performed By: #### B MP, GFR, MG, ANEU, ADIFF, CBC #### [address] [address] Creatinine [Mass/Vol] 1.09 mg/dL High 0.55-1.02 [facility] ([place]) Comment on above: Performed By: #### B MP, GFR, MG, ANEU, ADIFF, CBC #### [address] [address] Glucose [Mass/Vol] 151 mg/dL High 70-105 [facility] ([place]) Comment on above: Performed By: #### B MP, GFR, MG, ANEU, ADIFF, CBC #### [address] [address] Potassium [Moles/Vol] 3.4 mmol/L Low 3.5-5.1 [facility] ([place]) Comment on above: Performed By: #### B MP, GFR, MG, ANEU, ADIFF, CBC #### [address] [address] Sodium [Moles/Vol] 140 mmol/L Normal 136-145 [facility] ([place]) Comment on above: Performed By: #### B MP, GFR, MG, ANEU, ADIFF, CBC #### [address] [address] Urea nitrogen [Mass/Vol] 26 mg/dL High 7-18 [facility] ([place]) Comment on above: Performed By: #### B MP, GFR, MG, ANEU, ADIFF, CBC #### [address] [address] BUN/Creatinine Ratio 30 ratio High 7-27 [facility] ([place] Comment on above: Performed By: #### B MP, GFR, MG, ANEU, ADIFF, CBC #### [address] [address] Calcium [Mass/Vol] 5.6 mg/dL Critically abnormal 8.4-10.2 [facility] ([place] Comment on above: Performed By: #### B MP, GFR, MG, ANEU, ADIFF, CBC #### [address] [address] Chloride [Moles/Vol] 110 mmol/L High 98-107 [facility] ([place] Comment on above: Performed By: #### B MP, GFR, MG, ANEU, ADIFF, CBC #### [address] [address] CO2 [Moles/Vol] 22 mmol/L Normal 22-29 [facility] ([place] Comment on above: Performed By: #### B MP, GFR, MG, ANEU, ADIFF, CBC #### [address] [address] Creatinine [Mass/Vol] 0.71 mg/dL Normal 0.55-1.02 [facility] ([place] Comment on above: Performed By: #### B MP, GFR, MG, ANEU, ADIFF, CBC #### [address] [address] Electrolyte Balance 9.0 mEq/L Normal 4.0-15.0 [facility] ([place]) Comment on above: Performed By: #### B MP, GFR, MG, ANEU, ADIFF, CBC #### [address] [address] Glucose [Mass/Vol] 131 mg/dL High 70-105 [facility] ([place] Comment on above: Performed By: #### B MP, GFR, MG, ANEU, ADIFF, CBC #### [address] [address] Potassium [Moles/Vol] 2.9 mmol/L Low 3.5-5.1 [facility] ([place] Comment on above: Performed By: #### B MP, GFR, MG, ANEU, ADIFF, CBC #### [address] [address] Sodium [Moles/Vol] 141 mmol/L Normal 136-145 [facility] ([place]) Comment on above: Performed By: #### B MP, GFR, MG, ANEU, ADIFF, CBC #### [place] [address] Urea nitrogen [Mass/Vol] 21 mg/dL High 7-18 [facility] ([place] Comment on above: Performed By: #### B MP, GFR, MG, ANEU, ADIFF, CBC #### [address] [address] CBCon 06-15-2023 Erythrocyte distribution width (RBC) [Ratio] 16.5 % High 11.5-14.5 [facility] ([place]) Comment on above: Performed By: #### B MP, GFR, MG, ANEU, ADIFF, CBC #### [address] [address] Hematocrit (Bld) [Volume fraction] 33.3 % Low 37.0-47.0 [facility] ([place]) Comment on above: Performed By: #### B MP, GFR, MG, ANEU, ADIFF, CBC #### [address] [address] Hgb 11.3 G/dL Low 12.0-16.0 [facility] ([place] Comment on above: Performed By: #### B MP, GFR, MG, ANEU, ADIFF, CBC #### [place] [address] MCH (RBC) [Entitic mass] 29.4 pg Normal 27.0-31.2 [facility] ([place]) Comment on above: Performed By: #### B MP, GFR, MG, ANEU, ADIFF, CBC #### [place] [address] MCHC 33.8 G/dL Normal 33.0-37.0 [facility] ([place] Comment on above: Performed By: #### B MP, GFR, MG, ANEU, ADIFF, CBC #### [place] [address] MCV (RBC) [Entitic vol] 86.8 fL Normal 80.0-94.0 [facility] ([place]) Comment on above: Performed By: #### B MP, GFR, MG, ANEU, ADIFF, CBC #### [place] [address] Platelet 139 10 3/mcL Normal 130-400 [facility] ([place]) Comment on above: Performed By: #### B MP, GFR, MG, ANEU, ADIFF, CBC #### [place] [address] Platelet mean volume (Bld) [Entitic vol] 8.8 fL Normal 7.4-10.4 [facility] ([place]) Comment on above: Performed By: #### B MP, GFR, MG, ANEU, ADIFF, CBC #### [place] [address] RBC 3.83 10 6/mcL Low 4.20-5.40 [facility] ([place] Comment on above: Performed By: #### B MP, GFR, MG, ANEU, ADIFF, CBC #### [place] [address] WBC 11.0 10 3/mcL High 4.6-10.8 [facility] ([place]) Comment on above: Performed By: #### B MP, GFR, MG, ANEU, ADIFF, CBC #### [facility] [address] [place] [address] LABORATORYOrdered By: Surya Cummings on 06-15-2023 Blood Glucose Testing Reason Routine (06/15/23 11:24 AM) [facility] Work Phone: Glucose [Mass/Vol] 125 mg/dL Invalid Interpretation Code 70 - 110 mg/dL [facility] Work Phone: Blood Glucose Testing Reason Routine (06/15/23 7:18 AM) [facility] Work Phone: Glucose [Mass/Vol] 135 mg/dL Invalid Interpretation Code 70 - 110 mg/dL [facility] Work Phone: LABORATORYOrdered By: SYSTEM SYSTEM on 06-15-2023 Calcium [Mass/Vol] 7.4 mg/dL Invalid Interpretation Code 8.4 - 10.2 mg/dL AO ADM SS Chloride [Moles/Vol] 105 mmol/L Invalid Interpretation Code 98 - 107 mmol/L AO ADM SS CO2 [Moles/Vol] 27 mmol/L Invalid Interpretation Code 22 - 29 mmol/L AO ADM SS Creatinine [Mass/Vol] 1.09 mg/dL Invalid Interpretation Code 0.55 - 1.02 mg/dL AO ADM SS GFR/1.73 sq M.predicted among blacks MDRD (S/P/Bld) [Vol rate/Area] 63 ml/min/1.73sqm Invalid Interpretation Code AO Chemistry S Comment on above: Interpretive Data: GFR Population mean for , Non- Americans Ages 20-29 = 116 mL/min/1.73 sq.m. Ages 30-39 = 107 mL/min/1.73 sq.m. Ages 40-49 = 99 mL/min/1.73 sq.m. Ages 50-59 = 93 mL/min/1.73 sq.m. Ages 60-69 = 85 mL/min/1.73 sq.m. Ages 70+ = 75 mL/min/1.73 sq.m. Chronic Kidney Disease: Less than 60 mL/min/1.73 square meters End Stage Renal Disease: Less than 15 mL/min/1.73 square meters GFR/1.73 sq M.predicted among non-blacks MDRD (S/P/Bld) [Vol rate/Area] 52 ml/min/1.73sqm Invalid Interpretation Code AO Chemistry S Comment on above: Interpretive Data: GFR Population mean for , Non- Americans Ages 20-29 = 116 mL/min/1.73 sq.m. Ages 30-39 = 107 mL/min/1.73 sq.m. Ages 40-49 = 99 mL/min/1.73 sq.m. Ages 50-59 = 93 mL/min/1.73 sq.m. Ages 60-69 = 85 mL/min/1.73 sq.m. Ages 70+ = 75 mL/min/1.73 sq.m. Chronic Kidney Disease: Less than 60 mL/min/1.73 square meters End Stage Renal Disease: Less than 15 mL/min/1.73 square meters Glucose [Mass/Vol] 151 mg/dL Invalid Interpretation Code 70 - 105 mg/dL AO ADM SS Magnesium [Mass/Vol] 1.9 mg/dL Invalid Interpretation Code 1.8 - 2.4 mg/dL AO ADM SS Potassium [Moles/Vol] 3.4 mmol/L Invalid Interpretation Code 3.5 - 5.1 mmol/L AO ADM SS Sodium [Moles/Vol] 140 mmol/L Invalid Interpretation Code 136 - 145 mmol/L AO ADM SS Urea nitrogen [Mass/Vol] 26 mg/dL Invalid Interpretation Code 7 - 18 mg/dL AO ADM SS Basophil, Absolute 0.0 103/mcL Invalid Interpretation Code 0.0 - 0.2 10^3/mcL AO Workflow SS Basophils/100 WBC (Bld) 0.3 % Invalid Interpretation Code 0.0 - 2.5 % AO Workflow SS Calcium [Mass/Vol] 5.6 mg/dL Invalid Interpretation Code 8.4 - 10.2 mg/dL AO ADM SS Chloride [Moles/Vol] 110 mmol/L Invalid Interpretation Code 98 - 107 mmol/L AO ADM SS CO2 [Moles/Vol] 22 mmol/L Invalid Interpretation Code 22 - 29 mmol/L AO ADM SS Creatinine [Mass/Vol] 0.71 mg/dL Invalid Interpretation Code 0.55 - 1.02 mg/dL AO ADM SS Electrolyte Balance 9.0 mEq/L Invalid Interpretation Code 4.0 - 15.0 mEq/L AO ADM SS Eosinophil, Absolute 0.1 103/mcL Invalid Interpretation Code 0.0 - 0.4 10^3/mcL AO Workflow SS Eosinophils/100 WBC (Bld) 1.2 % Invalid Interpretation Code 0.0 - 7.0 % AO Workflow SS Erythrocyte distribution width (RBC) [Ratio] 16.5 % Invalid Interpretation Code 11.5 - 14.5 % AO Workflow SS GFR/1.73 sq M.predicted among blacks MDRD (S/P/Bld) [Vol rate/Area] 104 ml/min/1.73sqm Invalid Interpretation Code AO Chemistry S Comment on above: Interpretive Data: GFR Population mean for , Non- Americans Ages 20-29 = 116 mL/min/1.73 sq.m. Ages 30-39 = 107 mL/min/1.73 sq.m. Ages 40-49 = 99 mL/min/1.73 sq.m. Ages 50-59 = 93 mL/min/1.73 sq.m. Ages 60-69 = 85 mL/min/1.73 sq.m. Ages 70+ = 75 mL/min/1.73 sq.m. Chronic Kidney Disease: Less than 60 mL/min/1.73 square meters End Stage Renal Disease: Less than 15 mL/min/1.73 square meters GFR/1.73 sq M.predicted among non-blacks MDRD (S/P/Bld) [Vol rate/Area] 85 ml/min/1.73sqm Invalid Interpretation Code AO Chemistry S Comment on above: Interpretive Data: GFR Population mean for , Non- Americans Ages 20-29 = 116 mL/min/1.73 sq.m. Ages 30-39 = 107 mL/min/1.73 sq.m. Ages 40-49 = 99 mL/min/1.73 sq.m. Ages 50-59 = 93 mL/min/1.73 sq.m. Ages 60-69 = 85 mL/min/1.73 sq.m. Ages 70+ = 75 mL/min/1.73 sq.m. Chronic Kidney Disease: Less than 60 mL/min/1.73 square meters End Stage Renal Disease: Less than 15 mL/min/1.73 square meters Glucose [Mass/Vol] 131 mg/dL Invalid Interpretation Code 70 - 105 mg/dL AO ADM SS Hematocrit (Bld) [Volume fraction] 33.3 % Invalid Interpretation Code 37.0 - 47.0 % AO Workflow SS Hemoglobin (Bld) [Mass/Vol] 11.3 G/dL Invalid Interpretation Code 12.0 - 16.0 G/dL AO Workflow SS Lymphocyte, Absolute 1.4 103/mcL Invalid Interpretation Code 0.8 - 3.9 10^3/mcL AO Workflow SS Lymphocytes/100 WBC (Bld) 13.0 % Invalid Interpretation Code 10.0 - 50.0 % AO Workflow SS Magnesium [Mass/Vol] 1.4 mg/dL Invalid Interpretation Code 1.8 - 2.4 mg/dL AO ADM SS MCH (RBC) [Entitic mass] 29.4 pg Invalid Interpretation Code 27.0 - 31.2 pg AO Workflow SS MCHC 33.8 G/dL Invalid Interpretation Code 33.0 - 37.0 G/dL AO Workflow SS MCV (RBC) [Entitic vol] 86.8 fL Invalid Interpretation Code 80.0 - 94.0 fL AO Workflow SS Monocyte, Absolute 1.2 103/mcL Invalid Interpretation Code 0.2 - 1.0 10^3/mcL AO Workflow SS Monocytes/100 WBC (Bld) 10.6 % Invalid Interpretation Code 1.7 - 13.0 % AO Workflow SS Neutrophil, Absolute 8.2 103/mcL Invalid Interpretation Code 2.9 - 6.2 10^3/mcL AO Workflow SS Neutrophils/100 WBC (Bld) 74.9 % Invalid Interpretation Code 37.0 - 80.0 % AO Workflow SS Platelet mean volume (Bld) [Entitic vol] 8.8 fL Invalid Interpretation Code 7.4 - 10.4 fL AO Workflow SS Platelets (Bld) [#/Vol] 139 103/mcL Invalid Interpretation Code 130 - 400 10^3/mcL AO Workflow SS Potassium [Moles/Vol] 2.9 mmol/L Invalid Interpretation Code 3.5 - 5.1 mmol/L AO ADM SS RBC (Bld) [#/Vol] 3.83 106/mcL Invalid Interpretation Code 4.20 - 5.40 10^6/mcL AO Workflow SS Sodium [Moles/Vol] 141 mmol/L Invalid Interpretation Code 136 - 145 mmol/L AO ADM SS Urea nitrogen [Mass/Vol] 21 mg/dL Invalid Interpretation Code 7 - 18 mg/dL AO ADM SS Urea nitrogen/Creatinine [Mass ratio] 30 ratio Invalid Interpretation Code ratio AO ADM SS WBC (Bld) [#/Vol] 11.0 103/mcL Invalid Interpretation Code 4.6 - 10.8 10^3/mcL AO Workflow SS LABORATORYOrdered By: Willow Nuñez on 06-15-2023 Electrolyte Balance 8.0 mEq/L Invalid Interpretation Code 4.0 - 15.0 mEq/L AO Chemistry S Urea nitrogen/Creatinine [Mass ratio] 24 ratio Invalid Interpretation Code ratio AO Chemistry S LABORATORYOrdered By: Wen Dan on 06-15-2023 Blood Glucose Testing Reason Routine (06/15/23 2:18 AM) [facility] Work Phone: Glucose [Mass/Vol] 246 mg/dL Invalid Interpretation Code 70 - 110 mg/dL [facility] Work Phone: MGon 06-15-2023 Magnesium [Mass/Vol] 1.9 mg/dL Normal 1.8-2.4 [facility] ([place]) Comment on above: Performed By: #### B MP, GFR, MG, ANEU, ADIFF, CBC #### [address] [address] Magnesium [Mass/Vol] 1.4 mg/dL Low 1.8-2.4 [facility] ([place]) Comment on above: Performed By: #### B MP, GFR, MG, ANEU, ADIFF, CBC #### [address] [address] .Auto Diffon 06-14-2023 Basophil, Absolute 0.1 10 3/mcL Normal 0.0-0.2 [facility] ([place]) Comment on above: Performed By: #### B MP, GFR, MG, ANEU, ADIFF, CBC #### [address] [address] Basophils/100 WBC (Bld) 0.8 % Normal 0.0-2.5 [facility] ([place]) Comment on above: Performed By: #### B MP, GFR, MG, ANEU, ADIFF, CBC #### [address] [address] Eosinophil, Absolute 0.1 10 3/mcL Normal 0.0-0.4 [facility] ([place]) Comment on above: Performed By: #### B MP, GFR, MG, ANEU, ADIFF, CBC #### [address] [address] Eosinophils/100 WBC (Bld) 1.0 % Normal 0.0-7.0 [facility] ([place]) Comment on above: Performed By: #### B MP, GFR, MG, ANEU, ADIFF, CBC #### [address] [address] Lymphocyte, Absolute 1.5 10 3/mcL Normal 0.8-3.9 [facility] ([place]) Comment on above: Performed By: #### B MP, GFR, MG, ANEU, ADIFF, CBC #### [address] [address] Lymphocytes/100 WBC (Bld) 12.5 % Normal 10.0-50.0 [facility] ([place]) Comment on above: Performed By: #### B MP, GFR, MG, ANEU, ADIFF, CBC #### [address] [address] Monocyte, Absolute 1.4 10 3/mcL High 0.2-1.0 [facility] ([place]) Comment on above: Performed By: #### B MP, GFR, MG, ANEU, ADIFF, CBC #### [address] [address] Monocytes/100 WBC (Bld) 11.7 % Normal 1.7-13.0 [facility] ([place]) Comment on above: Performed By: #### B MP, GFR, MG, ANEU, ADIFF, CBC #### [address] [address] Neutrophils/100 WBC (Bld) 74.0 % Normal 37.0-80.0 [facility] ([place]) Comment on above: Performed By: #### B MP, GFR, MG, ANEU, ADIFF, CBC #### [address] [address] .GFRon 06-14-2023 GFR 45 ml/min/1.73sqm Normal [facility] ([place]) Comment on above: Result Comment: GFR Population mean for , Non- Americans Ages 20-29 = 116 mL/min/1.73 sq.m. Ages 30-39 = 107 mL/min/1.73 sq.m. Ages 40-49 = 99 mL/min/1.73 sq.m. Ages 50-59 = 93 mL/min/1.73 sq.m. Ages 60-69 = 85 mL/min/1.73 sq.m. Ages 70+ = 75 mL/min/1.73 sq.m. Chronic Kidney Disease: Less than 60 mL/min/1.73 square meters End Stage Renal Disease: Less than 15 mL/min/1.73 square meters Performed By: #### B MP, GFR, MG, ANEU, ADIFF, CBC #### [address] [address] GFR Non- 37 ml/min/1.73sqm Normal [facility] ([place]) Comment on above: Result Comment: GFR Population mean for , Non- Americans Ages 20-29 = 116 mL/min/1.73 sq.m. Ages 30-39 = 107 mL/min/1.73 sq.m. Ages 40-49 = 99 mL/min/1.73 sq.m. Ages 50-59 = 93 mL/min/1.73 sq.m. Ages 60-69 = 85 mL/min/1.73 sq.m. Ages 70+ = 75 mL/min/1.73 sq.m. Chronic Kidney Disease: Less than 60 mL/min/1.73 square meters End Stage Renal Disease: Less than 15 mL/min/1.73 square meters Performed By: #### B MP, GFR, MG, ANEU, ADIFF, CBC #### [address] [address] .NEUABSon 06-14-2023 Neutrophil, Absolute 8.6 10 3/mcL High 2.9-6.2 [facility] ([place]) Comment on above: Performed By: #### B MP, GFR, MG, ANEU, ADIFF, CBC #### [address] [address] BMPon 06-14-2023 BUN/Creatinine Ratio 27 ratio Normal 7-27 [facility] ([place]) Comment on above: Performed By: #### B MP, GFR, MG, ANEU, ADIFF, CBC #### [address] [address] Calcium [Mass/Vol] 7.9 mg/dL Low 8.4-10.2 [facility] ([place]) Comment on above: Performed By: #### B MP, GFR, MG, ANEU, ADIFF, CBC #### [address] [address] Chloride [Moles/Vol] 103 mmol/L Normal 98-107 [facility] ([place]) Comment on above: Performed By: #### B MP, GFR, MG, ANEU, ADIFF, CBC #### [address] [address] CO2 [Moles/Vol] 26 mmol/L Normal 22-29 [facility] ([place]) Comment on above: Performed By: #### B MP, GFR, MG, ANEU, ADIFF, CBC #### [address] [address] Creatinine [Mass/Vol] 1.46 mg/dL High 0.55-1.02 [facility] ([place]) Comment on above: Performed By: #### B MP, GFR, MG, ANEU, ADIFF, CBC #### [address] [address] Electrolyte Balance 8.0 mEq/L Normal 4.0-15.0 [facility] ([place]) Comment on above: Performed By: #### B MP, GFR, MG, ANEU, ADIFF, CBC #### [address] [address] Glucose [Mass/Vol] 129 mg/dL High 70-105 [facility] ([place]) Comment on above: Performed By: #### B MP, GFR, MG, ANEU, ADIFF, CBC #### [address] [address] Potassium [Moles/Vol] 3.4 mmol/L Low 3.5-5.1 [facility] ([place]) Comment on above: Performed By: #### B MP, GFR, MG, ANEU, ADIFF, CBC #### [place] [address] Sodium [Moles/Vol] 137 mmol/L Normal 136-145 [facility] ([place]) Comment on above: Performed By: #### B MP, GFR, MG, ANEU, ADIFF, CBC #### [place] [address] Urea nitrogen [Mass/Vol] 40 mg/dL High 7-18 [facility] ([place]) Comment on above: Performed By: #### B MP, GFR, MG, ANEU, ADIFF, CBC #### [place] [address] CBCon 06-14-2023 Erythrocyte distribution width (RBC) [Ratio] 16.0 % High 11.5-14.5 [facility] ([place]) Comment on above: Performed By: #### B MP, GFR, MG, ANEU, ADIFF, CBC #### [place] [address] Hematocrit (Bld) [Volume fraction] 33.6 % Low 37.0-47.0 [facility] ([place]) Comment on above: Performed By: #### B MP, GFR, MG, ANEU, ADIFF, CBC #### [place] [address] Hgb 11.3 G/dL Low 12.0-16.0 [facility] ([place]) Comment on above: Performed By: #### B MP, GFR, MG, ANEU, ADIFF, CBC #### [place] [address] MCH (RBC) [Entitic mass] 28.8 pg Normal 27.0-31.2 [facility] ([place]) Comment on above: Performed By: #### B MP, GFR, MG, ANEU, ADIFF, CBC #### [place] [address] MCHC 33.6 G/dL Normal 33.0-37.0 [facility] ([place]) Comment on above: Performed By: #### B MP, GFR, MG, ANEU, ADIFF, CBC #### [place] [address] MCV (RBC) [Entitic vol] 85.7 fL Normal 80.0-94.0 A [facility] ([place]) Comment on above: Performed By: #### B MP, GFR, MG, ANEU, ADIFF, CBC #### [place] [address] Platelet 105 10 3/mcL Low 130-400 [facility] ([place]) Comment on above: Performed By: #### B MP, GFR, MG, ANEU, ADIFF, CBC #### [place] [address] Platelet mean volume (Bld) [Entitic vol] 8.8 fL Normal 7.4-10.4 [facility] ([place]) Comment on above: Performed By: #### B MP, GFR, MG, ANEU, ADIFF, CBC #### [place] [address] RBC 3.92 10 6/mcL Low 4.20-5.40 [facility] ([place]) Comment on above: Performed By: #### B MP, GFR, MG, ANEU, ADIFF, CBC #### [place] [address] WBC 11.6 10 3/mcL High 4.6-10.8 [facility] ([place]) Comment on above: Performed By: #### B MP, GFR, MG, ANEU, ADIFF, CBC #### [place] [address] LABORATORYOrdered By: SYSTEM SYSTEM on 06-14-2023 Basophil, Absolute 0.1 103/mcL Invalid Interpretation Code 0.0 - 0.2 10^3/mcL AO Workflow SS Basophils/100 WBC (Bld) 0.8 % Invalid Interpretation Code 0.0 - 2.5 % AO Workflow SS Calcium [Mass/Vol] 7.9 mg/dL Invalid Interpretation Code 8.4 - 10.2 mg/dL AO ADM SS Chloride [Moles/Vol] 103 mmol/L Invalid Interpretation Code 98 - 107 mmol/L AO ADM SS CO2 [Moles/Vol] 26 mmol/L Invalid Interpretation Code 22 - 29 mmol/L AO ADM SS Creatinine [Mass/Vol] 1.46 mg/dL Invalid Interpretation Code 0.55 - 1.02 mg/dL AO ADM SS Electrolyte Balance 8.0 mEq/L Invalid Interpretation Code 4.0 - 15.0 mEq/L AO ADM SS Eosinophil, Absolute 0.1 103/mcL Invalid Interpretation Code 0.0 - 0.4 10^3/mcL AO Workflow SS Eosinophils/100 WBC (Bld) 1.0 % Invalid Interpretation Code 0.0 - 7.0 % AO Workflow SS Erythrocyte distribution width (RBC) [Ratio] 16.0 % Invalid Interpretation Code 11.5 - 14.5 % AO Workflow SS GFR/1.73 sq M.predicted among blacks MDRD (S/P/Bld) [Vol rate/Area] 45 ml/min/1.73sqm Invalid Interpretation Code AO Chemistry S Comment on above: Interpretive Data: GFR Population mean for , Non- Americans Ages 20-29 = 116 mL/min/1.73 sq.m. Ages 30-39 = 107 mL/min/1.73 sq.m. Ages 40-49 = 99 mL/min/1.73 sq.m. Ages 50-59 = 93 mL/min/1.73 sq.m. Ages 60-69 = 85 mL/min/1.73 sq.m. Ages 70+ = 75 mL/min/1.73 sq.m. Chronic Kidney Disease: Less than 60 mL/min/1.73 square meters End Stage Renal Disease: Less than 15 mL/min/1.73 square meters GFR/1.73 sq M.predicted among non-blacks MDRD (S/P/Bld) [Vol rate/Area] 37 ml/min/1.73sqm Invalid Interpretation Code AO Chemistry S Comment on above: Interpretive Data: GFR Population mean for , Non- Americans Ages 20-29 = 116 mL/min/1.73 sq.m. Ages 30-39 = 107 mL/min/1.73 sq.m. Ages 40-49 = 99 mL/min/1.73 sq.m. Ages 50-59 = 93 mL/min/1.73 sq.m. Ages 60-69 = 85 mL/min/1.73 sq.m. Ages 70+ = 75 mL/min/1.73 sq.m. Chronic Kidney Disease: Less than 60 mL/min/1.73 square meters End Stage Renal Disease: Less than 15 mL/min/1.73 square meters Glucose [Mass/Vol] 129 mg/dL Invalid Interpretation Code 70 - 105 mg/dL AO ADM SS Hematocrit (Bld) [Volume fraction] 33.6 % Invalid Interpretation Code 37.0 - 47.0 % AO Workflow SS Hemoglobin (Bld) [Mass/Vol] 11.3 G/dL Invalid Interpretation Code 12.0 - 16.0 G/dL AO Workflow SS Lymphocyte, Absolute 1.5 103/mcL Invalid Interpretation Code 0.8 - 3.9 10^3/mcL AO Workflow SS Lymphocytes/100 WBC (Bld) 12.5 % Invalid Interpretation Code 10.0 - 50.0 % AO Workflow SS Magnesium [Mass/Vol] 2.0 mg/dL Invalid Interpretation Code 1.8 - 2.4 mg/dL AO ADM SS MCH (RBC) [Entitic mass] 28.8 pg Invalid Interpretation Code 27.0 - 31.2 pg AO Workflow SS MCHC 33.6 G/dL Invalid Interpretation Code 33.0 - 37.0 G/dL AO Workflow SS MCV (RBC) [Entitic vol] 85.7 fL Invalid Interpretation Code 80.0 - 94.0 fL AO Workflow SS Monocyte, Absolute 1.4 103/mcL Invalid Interpretation Code 0.2 - 1.0 10^3/mcL AO Workflow SS Monocytes/100 WBC (Bld) 11.7 % Invalid Interpretation Code 1.7 - 13.0 % AO Workflow SS Neutrophil, Absolute 8.6 103/mcL Invalid Interpretation Code 2.9 - 6.2 10^3/mcL AO Workflow SS Neutrophils/100 WBC (Bld) 74.0 % Invalid Interpretation Code 37.0 - 80.0 % AO Workflow SS Platelet mean volume (Bld) [Entitic vol] 8.8 fL Invalid Interpretation Code 7.4 - 10.4 fL AO Workflow SS Platelets (Bld) [#/Vol] 105 103/mcL Invalid Interpretation Code 130 - 400 10^3/mcL AO Workflow SS Potassium [Moles/Vol] 3.4 mmol/L Invalid Interpretation Code 3.5 - 5.1 mmol/L AO ADM SS RBC (Bld) [#/Vol] 3.92 106/mcL Invalid Interpretation Code 4.20 - 5.40 10^6/mcL AO Workflow SS Sodium [Moles/Vol] 137 mmol/L Invalid Interpretation Code 136 - 145 mmol/L AO ADM SS Urea nitrogen [Mass/Vol] 40 mg/dL Invalid Interpretation Code 7 - 18 mg/dL AO ADM SS Urea nitrogen/Creatinine [Mass ratio] 27 ratio Invalid Interpretation Code 7 - 27 ratio AO ADM SS WBC (Bld) [#/Vol] 11.6 103/mcL Invalid Interpretation Code 4.6 - 10.8 10^3/mcL AO Workflow SS MGon 06-14-2023 Magnesium [Mass/Vol] 2.0 mg/dL Normal 1.8-2.4 [facility] ([place]) Comment on above: Performed By: #### B MP, GFR, MG, ANEU, ADIFF, CBC #### [address] [address] .Auto DiffOrdered By: SYSTEM SYSTEM on 06-13-2023 Basophil, Absolute 0.0 103/mcL Normal 0.0-0.2 AO Wo rkflow SS Comment on above: Performed By: #### B MP, GFR, MG, ANEU, ADIFF, CBC #### [address] [address] Basophils/100 WBC (Bld) 0.3 % Normal 0.0-2.5 A O Workflow SS Comment on above: Performed By: #### B MP, GFR, MG, ANEU, ADIFF, CBC #### [address] [address] Eosinophil, Absolute 0.1 103/mcL Normal 0.0-0.4 AO Workflow SS Comment on above: Performed By: #### B MP, GFR, MG, ANEU, ADIFF, CBC #### [address] [address] Eosinophils/100 WBC (Bld) 1.0 % Normal 0.0-7.0 AO Workflow SS Comment on above: Performed By: #### B MP, GFR, MG, ANEU, ADIFF, CBC #### [address] [address] Lymphocyte, Absolute 1.4 103/mcL Normal 0.8-3.9 AO Workflow SS Comment on above: Performed By: #### B MP, GFR, MG, ANEU, ADIFF, CBC #### [address] [address] Lymphocytes/100 WBC (Bld) 10.5 % Normal 10.0-50.0 AO Workflow SS Comment on above: Performed By: #### B MP, GFR, MG, ANEU, ADIFF, CBC #### [address] [address] Monocyte, Absolute 1.3 103/mcL High 0.2-1.0 AO Wo rkflow SS Comment on above: Performed By: #### B MP, GFR, MG, ANEU, ADIFF, CBC #### [address] [address] Monocytes/100 WBC (Bld) 9.7 % Normal 1.7-13.0 A O Workflow SS Comment on above: Performed By: #### B MP, GFR, MG, ANEU, ADIFF, CBC #### [address] [address] Neutrophils/100 WBC (Bld) 78.5 % Normal 37.0-80.0 AO Workflow SS Comment on above: Performed By: #### B MP, GFR, MG, ANEU, ADIFF, CBC #### [address] [address] .GFRon 06-13-2023 GFR 33 ml/min/1.73sqm Normal [facility] ([place]) Comment on above: Result Comment: GFR Population mean for , Non- Americans Ages 20-29 = 116 mL/min/1.73 sq.m. Ages 30-39 = 107 mL/min/1.73 sq.m. Ages 40-49 = 99 mL/min/1.73 sq.m. Ages 50-59 = 93 mL/min/1.73 sq.m. Ages 60-69 = 85 mL/min/1.73 sq.m. Ages 70+ = 75 mL/min/1.73 sq.m. Chronic Kidney Disease: Less than 60 mL/min/1.73 square meters End Stage Renal Disease: Less than 15 mL/min/1.73 square meters Performed By: #### B MP, GFR, MG, ANEU, ADIFF, CBC #### [place] [address] GFR Non- 28 ml/min/1.73sqm Normal [facility] ([place]) Comment on above: Result Comment: GFR Population mean for , Non- Americans Ages 20-29 = 116 mL/min/1.73 sq.m. Ages 30-39 = 107 mL/min/1.73 sq.m. Ages 40-49 = 99 mL/min/1.73 sq.m. Ages 50-59 = 93 mL/min/1.73 sq.m. Ages 60-69 = 85 mL/min/1.73 sq.m. Ages 70+ = 75 mL/min/1.73 sq.m. Chronic Kidney Disease: Less than 60 mL/min/1.73 square meters End Stage Renal Disease: Less than 15 mL/min/1.73 square meters Performed By: #### B MP, GFR, MG, ANEU, ADIFF, CBC #### [place] [address] .NEUABSOrdered By: SYSTEM SY STEM on 06-13-2023 Neutrophil, Absolute 10.2 103/mcL High 2.9-6.2 AO Workflow SS Comment on above: Performed By: #### B MP, GFR, MG, ANEU, ADIFF, CBC #### [place] [address] [id number] By: SYSTEM SYSTEM on 06-13-2023 HbA1c (Bld) [Mass fraction] 12.9 % High 4.3-6.4 AO ADM SS Comment on above: Performed By: #### B MP, GFR, MG, ANEU, ADIFF, CBC #### [place] [address] BMPon 06-13-2023 BUN/Creatinine Ratio 27 ratio Normal 7-27 [facility] ([place]) Comment on above: Performed By: #### B MP, GFR, MG, ANEU, ADIFF, CBC #### [place] [address] Calcium [Mass/Vol] 7.7 mg/dL Low 8.4-10.2 [facility] ([place]) Comment on above: Performed By: #### B MP, GFR, MG, ANEU, ADIFF, CBC #### [address] [address] Chloride [Moles/Vol] 98 mmol/L Normal 98-107 [facility] ([place]) Comment on above: Performed By: #### B MP, GFR, MG, ANEU, ADIFF, CBC #### [address] [address] CO2 [Moles/Vol] 27 mmol/L Normal 22-29 [facility] ([place]) Comment on above: Performed By: #### B MP, GFR, MG, ANEU, ADIFF, CBC #### [address] [address] Creatinine [Mass/Vol] 1.89 mg/dL High 0.55-1.02 [facility] ([place]) Comment on above: Performed By: #### B MP, GFR, MG, ANEU, ADIFF, CBC #### [address] [address] Electrolyte Balance 7.0 mEq/L Normal 4.0-15.0 [facility] ([place]) Comment on above: Performed By: #### B MP, GFR, MG, ANEU, ADIFF, CBC #### [address] [address] Glucose [Mass/Vol] 319 mg/dL High 70-105 [facility] ([place]) Comment on above: Performed By: #### B MP, GFR, MG, ANEU, ADIFF, CBC #### [address] [address] Potassium [Moles/Vol] 3.5 mmol/L Normal 3.5-5.1 [facility] ([place]) Comment on above: Performed By: #### B MP, GFR, MG, ANEU, ADIFF, CBC #### [address] [address] Sodium [Moles/Vol] 132 mmol/L Low 136-145 [facility] ([place]) Comment on above: Performed By: #### B MP, GFR, MG, ANEU, ADIFF, CBC #### [place] [address] Urea nitrogen [Mass/Vol] 51 mg/dL High 7-18 [facility] ([place]) Comment on above: Performed By: #### B MP, GFR, MG, ANEU, ADIFF, CBC #### [place] [address] CBCOrdered By: SYSTEM SYSTEM on 06-13-2023 Erythrocyte distribution width (RBC) [Ratio] 15.7 % High 11.5-14.5 AO Workflow SS Comment on above: Performed By: #### B MP, GFR, MG, ANEU, ADIFF, CBC #### [place] [address] Hematocrit (Bld) [Volume fraction] 33.4 % Low 37.0-47.0 AO Workflow SS Comment on above: Performed By: #### B MP, GFR, MG, ANEU, ADIFF, CBC #### [place] [address] MCH (RBC) [Entitic mass] 28.8 pg Normal 27.0-31.2 AO Workflow SS Comment on above: Performed By: #### B MP, GFR, MG, ANEU, ADIFF, CBC #### [place] [address] MCHC 33.2 G/dL Normal 33.0-37.0 AO Workflow SS Comment on above: Performed By: #### B MP, GFR, MG, ANEU, ADIFF, CBC #### [place] [address] MCV (RBC) [Entitic vol] 86.7 fL Normal 80.0-94.0 A O Workflow SS Comment on above: Performed By: #### B MP, GFR, MG, ANEU, ADIFF, CBC #### [place] [address] Platelet mean volume (Bld) [Entitic vol] 9.2 fL Normal 7.4-10.4 AO Workflow SS Comment on above: Performed By: #### B MP, GFR, MG, ANEU, ADIFF, CBC #### [place] [id number] CBCon 06-13-2023 Hgb 11.1 G/dL Low 12.0-16.0 [facility] ([place]) Comment on above: Performed By: #### B MP, GFR, MG, ANEU, ADIFF, CBC #### [place] [address] Platelet 80 10 3/mcL Low 130-400 [facility] ([place]) Comment on above: Performed By: #### B MP, GFR, MG, ANEU, ADIFF, CBC #### [place] [address] RBC 3.85 10 6/mcL Low 4.20-5.40 [facility] ([place]) Comment on above: Performed By: #### B MP, GFR, MG, ANEU, ADIFF, CBC #### [place] [address] WBC 13.0 10 3/mcL High 4.6-10.8 [facility] ([place]) Comment on above: Performed By: #### B MP, GFR, MG, ANEU, ADIFF, CBC #### [place] [address] CPEPon 06-13-2023 C-Peptide 13.76 ng/mL High 0.81-3.85 [facility] ([place]) Comment on above: Performed By: #### B MP, GFR, MG, ANEU, ADIFF, CBC #### [place] [address] LABORATORYOrdered By: Casimiro Jay on 06-13-2023 Albumin DL <= 20 mg/L (U) [Mass/Vol] 6232 mcg/dL Invalid Interpretation Code AO ADM SS Albumin/Creatinine DL <= 20 mg/L (U) [Mass ratio] 62 mcg/mg Invalid Interpretation Code 0 - 30 mcg/mg AO ADM SS Creatinine (U) [Mass/Vol] 100.2 mg/dL Invalid Interpretation Code 28.0 - 117.0 mg/dL AO ADM SS LABORATORYOrdered By: SYSTEM SYSTEM on 06-13-2023 C peptide [Mass/Vol] 13.76 ng/mL Invalid Interpretation Code 0.81 - 3.85 ng/mL AH ADM SS Hemoglobin (Bld) [Mass/Vol] 11.1 G/dL Invalid Interpretation Code 12.0 - 16.0 G/dL AO Workflow SS Platelets (Bld) [#/Vol] 80 103/mcL Invalid Interpretation Code 130 - 400 10^3/mcL AO Workflow SS RBC (Bld) [#/Vol] 3.85 106/mcL Invalid Interpretation Code 4.20 - 5.40 10^6/mcL AO Workflow SS WBC (Bld) [#/Vol] 13.0 103/mcL Invalid Interpretation Code 4.6 - 10.8 10^3/mcL AO Workflow SS MALBRon 06-13-2023 U Creatinine 100.2 mg/dL Normal 28.0-117.0 [facility] ([place]) Comment on above: Performed By: #### B MP, GFR, MG, ANEU, ADIFF, CBC #### [address] [address] U Microalb 6232 mcg/dL Normal [facility] ([place]) Comment on above: Performed By: #### B MP, GFR, MG, ANEU, ADIFF, CBC #### [address] [address] U Ratio Alb/Cre 62 mcg/mg High 0-30 [facility] ([place]) Comment on above: Performed By: #### B MP, GFR, MG, ANEU, ADIFF, CBC #### [address] [address] MGon 06-13-2023 Magnesium [Mass/Vol] 1.9 mg/dL Normal 1.8-2.4 [facility] ([place]) Comment on above: Performed By: #### B MP, GFR, MG, ANEU, ADIFF, CBC #### [address] [address] US RENALon 06-13-2023 US RENAL ORIGINAL EXAMINATION: ULTRASOUND OF THE KIDNEYS 06/12/2023 6:03 pm COMPARISON: None. HISTORY: ORDERING SYSTEM PROVIDED HISTORY: Reason for Exam: BREONNA, r/o obstructive uropathy FINDINGS: The right kidney measures 12.4 cm x 5.7 cm x 4.9 cm, cortex thickness 14.9 mm. The left kidney measures 12.9 cm x 5.3 cm x 6.6 cm, cortex thickness 23.7 mm. Kidneys demonstrate normal cortical echogenicity. No hydronephrosis or intrarenal stones. No focal lesions. The bladder was not fully distended, volume 72 mL. Normal appearance within these confines. IMPRESSION: Normal-appearing kidneys with no obstructive uropathy. Interpreted by: Valente Camarena Preliminary Report By: Valente Camarena Electronically signed By Valente Camarena Dictated Date: 06/13/2023 12:31:26 AM Prelim Date: 06/13/2023 12:35:23 AM Sign Date: 06/13/2023 12:35:23 AM Ordering Provider: CRISTY Herrera [facility] ([place]) .Auto Diffon 06-12-2023 Basophil, Absolute 0.1 10 3/mcL Normal 0.0-0.2 [facility] ([place]) Comment on above: Performed By: #### B MP, GFR, MG, ANEU, ADIFF, CBC #### [address] [address] Basophils/100 WBC (Bld) 0.5 % Normal 0.0-2.5 [facility] ([place]) Comment on above: Performed By: #### B MP, GFR, MG, ANEU, ADIFF, CBC #### [address] [address] Eosinophil, Absolute 0.1 10 3/mcL Normal 0.0-0.4 [facility] ([place]) Comment on above: Performed By: #### B MP, GFR, MG, ANEU, ADIFF, CBC #### [address] [address] Eosinophils/100 WBC (Bld) 0.9 % Normal 0.0-7.0 [facility] ([place]) Comment on above: Performed By: #### B MP, GFR, MG, ANEU, ADIFF, CBC #### [address] [address] Lymphocyte, Absolute 1.2 10 3/mcL Normal 0.8-3.9 [facility] ([place]) Comment on above: Performed By: #### B MP, GFR, MG, ANEU, ADIFF, CBC #### [address] [address] Lymphocytes/100 WBC (Bld) 8.3 % Low 10.0-50.0 [facility] ([place]) Comment on above: Performed By: #### B MP, GFR, MG, ANEU, ADIFF, CBC #### [address] [address] Monocyte, Absolute 1.5 10 3/mcL High 0.2-1.0 [facility] ([place]) Comment on above: Performed By: #### B MP, GFR, MG, ANEU, ADIFF, CBC #### [address] [address] Monocytes/100 WBC (Bld) 10.2 % Normal 1.7-13.0 A [facility] ([place]) Comment on above: Performed By: #### B MP, GFR, MG, ANEU, ADIFF, CBC #### [address] [address] Neutrophils/100 WBC (Bld) 80.1 % High 37.0-80.0 [facility] ([place]) Comment on above: Performed By: #### B MP, GFR, MG, ANEU, ADIFF, CBC #### [address] [address] .GFRon 06-12-2023 GFR 33 ml/min/1.73sqm Normal [facility] ([place]) Comment on above: Result Comment: GFR Population mean for , Non- Americans Ages 20-29 = 116 mL/min/1.73 sq.m. Ages 30-39 = 107 mL/min/1.73 sq.m. Ages 40-49 = 99 mL/min/1.73 sq.m. Ages 50-59 = 93 mL/min/1.73 sq.m. Ages 60-69 = 85 mL/min/1.73 sq.m. Ages 70+ = 75 mL/min/1.73 sq.m. Chronic Kidney Disease: Less than 60 mL/min/1.73 square meters End Stage Renal Disease: Less than 15 mL/min/1.73 square meters Performed By: #### B MP, GFR, MG, ANEU, ADIFF, CBC #### [place] [address] GFR Non- 27 ml/min/1.73sqm Normal [facility] ([place]) Comment on above: Result Comment: GFR Population mean for , Non- Americans Ages 20-29 = 116 mL/min/1.73 sq.m. Ages 30-39 = 107 mL/min/1.73 sq.m. Ages 40-49 = 99 mL/min/1.73 sq.m. Ages 50-59 = 93 mL/min/1.73 sq.m. Ages 60-69 = 85 mL/min/1.73 sq.m. Ages 70+ = 75 mL/min/1.73 sq.m. Chronic Kidney Disease: Less than 60 mL/min/1.73 square meters End Stage Renal Disease: Less than 15 mL/min/1.73 square meters Performed By: #### B MP, GFR, MG, ANEU, ADIFF, CBC #### [place] [address] .MDWon 06-12-2023 Monocyte Distribution Width 30.92 High 0.00-20.00 [facility] ([place]) Comment on above: Result Comment: For adults in ED, MDW>20.0 may be associated with a higher risk of sepsis during the first 12hrs of hospital admission Performed By: #### B MP, GFR, MG, ANEU, ADIFF, CBC #### [place] [address] .NEUABSon 06-12-2023 Neutrophil, Absolute 11.4 10 3/mcL High 2.9-6.2 A [facility] ([place]) Comment on above: Performed By: #### B MP, GFR, MG, ANEU, ADIFF, CBC #### [place] [address] .Urinalysis Microscopic (AO) on 06-12-2023 UA Bacteria 4+ /hpf Abnormal [facility] ([place]) Comment on above: Performed By: #### B MP, GFR, MG, ANEU, ADIFF, CBC #### [place] [id number] UA RBC LOADED Abnormal None Seen [facility] ([place]) Comment on above: Performed By: #### B MP, GFR, MG, ANEU, ADIFF, CBC #### [address] [address] UA Squam Epithelial 5-10 Abnormal None Seen [facility] ([place]) Comment on above: Performed By: #### B MP, GFR, MG, ANEU, ADIFF, CBC #### [address] [address] UA WBC 15-[address] [facility] ([place] Comment on above: Performed By: #### B MP, GFR, MG, ANEU, ADIFF, CBC #### [address] [address] BMPon 06-12-2023 BUN/Creatinine Ratio 26 ratio Normal 7-27 [facility] ([place]) Comment on above: Performed By: #### B MP, GFR, MG, ANEU, ADIFF, CBC #### [address] [address] Calcium [Mass/Vol] 7.7 mg/dL Low 8.4-10.2 [facility] ([place]) Comment on above: Performed By: #### B MP, GFR, MG, ANEU, ADIFF, CBC #### [address] [address] Chloride [Moles/Vol] 93 mmol/L Low 98-107 [facility] ([place] Comment on above: Performed By: #### B MP, GFR, MG, ANEU, ADIFF, CBC #### [address] [address] CO2 [Moles/Vol] 23 mmol/L Normal 22-29 [facility] ([place] Comment on above: Performed By: #### B MP, GFR, MG, ANEU, ADIFF, CBC #### [address] [address] Creatinine [Mass/Vol] 1.93 mg/dL High 0.55-1.02 [facility] ([place]) Comment on above: Performed By: #### B MP, GFR, MG, ANEU, ADIFF, CBC #### [address] [address] Electrolyte Balance 12.0 mEq/L Normal 4.0-15.0 [facility] ([place]) Comment on above: Performed By: #### B MP, GFR, MG, ANEU, ADIFF, CBC #### [address] [address] Glucose [Mass/Vol] 428 mg/dL Critically abnormal 70-105 [facility] ([place] Comment on above: Performed By: #### B MP, GFR, MG, ANEU, ADIFF, CBC #### [address] [address] Potassium [Moles/Vol] 3.8 mmol/L Normal 3.5-5.1 [facility] ([place] Comment on above: Performed By: #### B MP, GFR, MG, ANEU, ADIFF, CBC #### [place] [id number] Sodium [Moles/Vol] 128 mmol/L Low 136-145 [facility] ([place] Comment on above: Performed By: #### B MP, GFR, MG, ANEU, ADIFF, CBC #### [place] [address] Urea nitrogen [Mass/Vol] 50 mg/dL High 7-18 [facility] ([place] Comment on above: Performed By: #### B MP, GFR, MG, ANEU, ADIFF, CBC #### [address] [address] CBCon 06-12-2023 Platelet 76 10 3/mcL Low 130-400 [facility] ([place] Comment on above: Performed By: #### B MP, GFR, MG, ANEU, ADIFF, CBC #### [address] [address] Platelet mean volume (Bld) [Entitic vol] 9.6 fL Normal 7.4-10.4 [facility] ([place] Comment on above: Performed By: #### B MP, GFR, MG, ANEU, ADIFF, CBC #### [place] [address] Erythrocyte distribution width (RBC) [Ratio] 15.4 % High 11.5-14.5 [facility] ([place] Comment on above: Performed By: #### B MP, GFR, MG, ANEU, ADIFF, CBC #### [place] [address] Hematocrit (Bld) [Volume fraction] 36.4 % Low 37.0-47.0 [facility] ([place] Comment on above: Performed By: #### B MP, GFR, MG, ANEU, ADIFF, CBC #### [place] [address] Hgb 12.3 G/dL Normal 12.0-16.0 [facility] ([place] Comment on above: Performed By: #### B MP, GFR, MG, ANEU, ADIFF, CBC #### [place] [address] MCH (RBC) [Entitic mass] 29.0 pg Normal 27.0-31.2 [facility] ([place] Comment on above: Performed By: #### B MP, GFR, MG, ANEU, ADIFF, CBC #### [place] [address] MCHC 33.7 G/dL Normal 33.0-37.0 [facility] ([place] Comment on above: Performed By: #### B MP, GFR, MG, ANEU, ADIFF, CBC #### [place] [address] MCV (RBC) [Entitic vol] 86.2 fL Normal 80.0-94.0 [facility] ([place]) Comment on above: Performed By: #### B MP, GFR, MG, ANEU, ADIFF, CBC #### [place] [address] RBC 4.23 10 6/mcL Normal 4.20-5.40 [facility] ([place] Comment on above: Performed By: #### B MP, GFR, MG, ANEU, ADIFF, CBC #### [place] [address] WBC 14.2 10 3/mcL High 4.6-10.8 [facility] ([place]) Comment on above: Performed By: #### B MP, GFR, MG, ANEU, ADIFF, CBC #### [facility] [address] [place] [id number] LABORATORYOrdered By: Alfa Valencia on 06-12-2023 Appearance (U) Slightly Cloudy *ABN* (06/12/23 2:05 PM) Invalid Interpretation Code Clear AO Auto Urine SS Bacteria LM.HPF (Urine sed) [#/Area] 4 /[HPF] Invalid Interpretation Code AO Auto Urine SS Bilirubin Ql (U) Small *ABN* (06/12/23 2:05 PM) Invalid Interpretation Code Negative AO Auto Urine SS Color (U) Yellow (06/12/23 2:05 PM) Invalid Interpretation Code AO Auto Urine SS Glucose Test strip (U) [Mass/Vol] 500 mg/dL Invalid Interpretation Code Negative AO Auto Urine SS HCG ( test) Ql Negative (06/12/23 2:05 PM) Invalid Interpretation Code AO Manual Urine SS Hemoglobin Auto test strip (U) [Mass/Vol] Large *ABN* (06/12/23 2:05 PM) Invalid Interpretation Code Negative AO Auto Urine SS Ketones Ql (U) Trace mg/dL Invalid Interpretation Code Negative AO Auto Urine SS test (u) int Not detected Invalid Interpretation Code AO Manual Urine SS UA Leuk Est Small *ABN* (06/12/23 2:05 PM) Invalid Interpretation Code Negative AO Auto Urine SS UA Nitrite Negative (06/12/23 2:05 PM) Invalid Interpretation Code Negative AO Auto Urine SS UA pH 5.5 (06/12/23 2:05 PM) Invalid Interpretation Code 5.0 - 8.0 AO Auto Urine SS UA Protein 30 mg/dL Invalid Interpretation Code Negative AO Auto Urine SS UA RBC LOADED /HPF Invalid Interpretation Code None Seen AO Auto Urine SS UA Spec Grav 1.020 (06/12/23 2:05 PM) Invalid Interpretation Code 1.015-1.025 AO Auto Urine SS UA Specimen Type Clean Catch (06/12/23 2:05 PM) Invalid Interpretation Code AO Auto Urine SS UA Squam Epithelial 5-10 /HPF Invalid Interpretation Code None Seen AO Auto Urine SS UA Urobilinogen 4.0 E.U./dL Invalid Interpretation Code 0.2-1.0 AO Auto Urine SS WBC LM.HPF (Urine sed) [#/Area] 15-25 /HPF Invalid Interpretation Code None Seen AO Auto Urine SS LABORATORYOrdered By: SYSTEM SYSTEM on 06-12-2023 Monocyte distribution width Auto (Bld) [Entitic vol] 30.92 1 Invalid Interpretation Code 0.00 - 20.00 AO Workflow SS Comment on above: Result Comment: For adults in ED, MDW>20.0 may be associated with a higher risk of sepsis during the first 12hrs of hospital admission No Panel Informationon 06-12 Culture Urine 10,000 - 50,000 cfu/ ml Multiple bacterial morphotypes present. Probable Contamination. Suggest recollection if clinically indicated. [facility] Work Phone: PREGUon 06-12-2023 HCG ( test) Ql (U) Negative Normal [facility] ([place]) Comment on above: Performed By: #### B MP, GFR, MG, ANEU, ADIFF, CBC #### [address] [address] test (u) int Not detected Invalid Interpretation Code [facility] ([place]) Comment on above: Performed By: #### B MP, GFR, MG, ANEU, ADIFF, CBC #### [address] [address] UAon 06-12-2023 Color (U) Yellow Normal [facility] ([place]) Comment on above: Performed By: #### B MP, GFR, MG, ANEU, ADIFF, CBC #### [address] [address] Glucose (U) [Mass/Vol] 500 mg/dL Abnormal Negative [facility] ([place]) Comment on above: Performed By: #### B MP, GFR, MG, ANEU, ADIFF, CBC #### [address] [address] Ketones Ql (U) Trace Abnormal Negative [facility] ([place]) Comment on above: Performed By: #### B MP, GFR, MG, ANEU, ADIFF, CBC #### [address] [address] UA Appear Slightly Cloudy Abnormal Clear [facility] ([place] Comment on above: Performed By: #### B MP, GFR, MG, ANEU, ADIFF, CBC #### [address] [address] UA Bili Small Abnormal Negative [facility] ([place] Comment on above: Performed By: #### B MP, GFR, MG, ANEU, ADIFF, CBC #### [address] [address] UA Blood Large Abnormal Negative [facility] ([place] Comment on above: Performed By: #### B MP, GFR, MG, ANEU, ADIFF, CBC #### [address] [address] UA Leuk Est Small Abnormal Negative [facility] ([place] Comment on above: Performed By: #### B MP, GFR, MG, ANEU, ADIFF, CBC #### [address] [address] UA Nitrite Negative Normal Negative [facility] ([place] Comment on above: Performed By: #### B MP, GFR, MG, ANEU, ADIFF, CBC #### [address] [address] UA pH 5.5 Normal 5.0 - 8.0 [facility] ([place]) Comment on above: Performed By: #### B MP, GFR, MG, ANEU, ADIFF, CBC #### [address] [address] UA Protein 30 mg/dL Normal Negative [facility] ([place] Comment on above: Performed By: #### B MP, GFR, MG, ANEU, ADIFF, CBC #### [place] [address] UA Spec Grav 1.020 Normal 1.015-1.025 [facility] ([place] Comment on above: Performed By: #### B MP, GFR, MG, ANEU, ADIFF, CBC #### [address] [address] UA Specimen Type Clean Catch Normal [facility] ([place]) Comment on above: Performed By: #### B MP, GFR, MG, ANEU, ADIFF, CBC #### [place] [address] [place] [address] UA Urobilinogen 4.0 E.U./dL Abnormal 0.2-1.0 [facility] ([place]) Comment on above: Performed By: #### B MP, GFR, MG, ANEU, ADIFF, CBC #### [place] [address] [address] [place] [address] LABORATORYOrdered By: Anyi Peguero on 11-27-2021 Glucose [Mass/Vol] 373 mg/dL Invalid Interpretation Code 70 - 110 mg/dL [facility] Work Phone: LABORATORYOrdered By: Casimiro Jeffries on 11-27-2021 Troponin I.cardiac DL <= 0.01 ng/mL [Mass/Vol] 5.8 ng/L Invalid Interpretation Code 0.0 - 51.4 ng/L AO ADM SS LABORATORYOrdered By: Alfa Valencia on 11-27-2021 Basophil, Absolute 0.00 103/mcL Invalid Interpretation Code 0.00 - 0.19 10^3/mcL AO Auto Heme SS Basophils/100 WBC (Bld) 0.7 % Invalid Interpretation Code 0.0 - 2.5 % AO Auto Heme SS Calcium [Mass/Vol] 8.6 mg/dL Invalid Interpretation Code 8.4 - 10.2 mg/dL AO ADM SS Chloride [Moles/Vol] 100 mmol/L Invalid Interpretation Code 98 - 107 mmol/L AO ADM SS CO2 [Moles/Vol] 22 mmol/L Invalid Interpretation Code 22 - 29 mmol/L AO ADM SS Creatinine [Mass/Vol] 0.95 mg/dL Invalid Interpretation Code 0.55 - 1.02 mg/dL AO ADM SS Electrolyte Balance 12.0 mEq/L Invalid Interpretation Code 4.0 - 15.0 mEq/L AO ADM SS Eosinophil, Absolute 0.20 103/mcL Invalid Interpretation Code 0.00 - 0.40 10^3/mcL AO Auto Heme SS Eosinophils/100 WBC (Bld) 2.6 % Invalid Interpretation Code 0.0 - 7.0 % AO Auto Heme SS Erythrocyte distribution width (RBC) [Ratio] 14.4 % Invalid Interpretation Code 11.5 - 14.5 % AO Auto Heme SS Glucose [Mass/Vol] 519 mg/dL Invalid Interpretation Code 70 - 105 mg/dL AO ADM SS Hematocrit (Bld) [Volume fraction] 42.9 % Invalid Interpretation Code 37.0 - 47.0 % AO Auto Heme SS Hemoglobin (Bld) [Mass/Vol] 14.7 G/dL Invalid Interpretation Code 12.0 - 16.0 G/dL AO Auto Heme SS Lymphocyte, Absolute 2.00 103/mcL Invalid Interpretation Code 0.77 - 3.85 10^3/mcL AO Auto Heme SS Lymphocytes/100 WBC (Bld) 31.5 % Invalid Interpretation Code 10.0 - 50.0 % AO Auto Heme SS MCH (RBC) [Entitic mass] 29.9 pg Invalid Interpretation Code 27.0 - 31.2 pg AO Auto Heme SS MCHC (RBC) [Mass/Vol] 34.3 G/dL Invalid Interpretation Code 33.0 - 37.0 G/dL AO Auto Heme SS MCV (RBC) [Entitic vol] 87.3 fL Invalid Interpretation Code 80.0 - 94.0 fL AO Auto Heme SS Monocyte, Absolute 0.40 103/mcL Invalid Interpretation Code 0.15 - 1.00 10^3/mcL AO Auto Heme SS Monocytes/100 WBC (Bld) 5.6 % Invalid Interpretation Code 1.7 - 13.0 % AO Auto Heme SS Neutrophil, Absolute 3.80 103/mcL Invalid Interpretation Code 2.85 - 6.16 10^3/mcL AO Auto Heme SS Neutrophils/100 WBC (Bld) 59.6 % Invalid Interpretation Code 37.0 - 80.0 % AO Auto Heme SS Platelet mean volume (Bld) [Entitic vol] 9.8 fL Invalid Interpretation Code 7.4 - 10.4 fL AO Auto Heme SS Platelets (Bld) [#/Vol] 117 103/mcL Invalid Interpretation Code 130 - 400 10^3/mcL AO Auto Heme SS Potassium [Moles/Vol] 4.2 mmol/L Invalid Interpretation Code 3.5 - 5.1 mmol/L AO ADM SS RBC (Bld) [#/Vol] 4.91 106/mcL Invalid Interpretation Code 4.20 - 5.40 10^6/mcL AO Auto Heme SS Sodium [Moles/Vol] 134 mmol/L Invalid Interpretation Code 136 - 145 mmol/L AO ADM SS Troponin I.cardiac DL <= 0.01 ng/mL [Mass/Vol] 5.8 ng/L Invalid Interpretation Code 0.0 - 51.4 ng/L AO ADM SS Urea nitrogen [Mass/Vol] 9 mg/dL Invalid Interpretation Code 7 - 18 mg/dL AO ADM SS Urea nitrogen/Creatinine [Mass ratio] 9 ratio Invalid Interpretation Code 7 - 27 ratio AO ADM SS WBC (Bld) [#/Vol] 6.50 103/mcL Invalid Interpretation Code 4.60 - 10.80 10^3/mcL AO Auto Heme SS LABORATORYOrdered By: SYSTEM SYSTEM on 11-27-2021 GFR 75 ml/min/1.73sqm Invalid Interpretation Code AO Chemistry S GFR Non- 62 ml/min/1.73sqm Invalid Interpretation Code AO Chemistry S CNOVon 08-01-2021 CNOV Office Visit (PODIWS ) NADIA ANGLIN ([id number]) 1970 F Date Time Provider Department 08/01/21 1:30 PM YOANA CAMARA During your visit today, we recorded the following information about you: Carley Orta RN 08/01/2021 2:03 PM Signed AMB ROOMING INTAKE FLOWSHEET DATA Risk Screening Do you have concerns about personal safety or safety in the home?: No Pain Pain Level: 10 Pain Location: Other: See Comment Description: Burning, Numbness Duration Amount of Time: (several) Duration Units: Years Frequency: Continuous Intervention/Comfort measure: Reposition, Relaxation, Medication, Cold (gabapentin) Patient presents with: Left Foot - New Patient, Numbness Right Foot - New Patient, Numbness Patient c/o neuropathy in both feet that has gotten progressively worse over the years. She has been on gabapentin but it doesn't help. States cold is about the only thing that helps. Yoana Camara DPM 08/01/2021 2:03 PM Signed Initial Office Visit Subjective: This 51 year old female presents to clinic for diabetic foot check. Patient has the following complaints: painful neuropathy. Patient presents to clinic complaining of severe burning of b/l feet. She has neuropathy that she first noticed back in 2009. She has been on neurontin 400 mg daily and this has been increased to 800 mg daily. She does not feel the neurontin is helping. She states the only thing that helps is placing her foot in cold water. Patient has tried diabetic pain cream but nothing helps. Patient did have covid last April and feels that since having covid, her neuropathy is much more severe. In addition, she has psoriasis and she feels covid made her psoriasis worse. Patient admits to being diabetic for 4 years now. Patient +B/T/N in feet at this time. Patient -pain in legs when walking. No other pedal complaints at this time. No change in medications or medical history since last visit. PAIN EVALUATION 08/01/2021 1335 Pain Level: 10 Pain Location: Other: See Comment Description: Burning;Numbness Duration Amount of Time: ? several Duration Units: Years Frequency: Continuous Intervention/Comfort measure: Reposition;Relaxation;M edication;Cold gabapentin No results found for: HBA1C PCP: Clifford Sarmiento DO PAST MEDICAL HISTORY Diagnosis Date - Asthma - Current smoker - Diabetes mellitus type 2, insulin dependent (HCC) - Elevated BP - Obesity - Psoriasis - Spinal stenosis Current Outpatient Medications Medication Sig - FREESTYLE LITE STRIPS test strip - cyclobenzaprine (FLEXERIL) 10 mg tablet Take 10 mg by mouth. - gabapentin (NEURONTIN) 100 mg capsule Take 200 mg by mouth twice daily. - HYDROcodone-acetaminoph en (NORCO) 5-325 mg per tablet Take 1 tablet by mouth. - FREESTYLE LANCETS 28 gauge - metoprolol tartrate, short acting, (LOPRESSOR) 25 mg tablet - BD INSULIN PEN NEEDLE UF 31 gauge x 16 - sertraline (ZOLOFT) 100 mg tablet Take 100 mg by mouth. - metFORMIN (GLUCOPHAGE) 500 mg tablet Take 1,000 mg by mouth twice daily with meals. - lisinopril 10 mg tablet Take 1 tablet by mouth once daily. - albuterol HFA (PROAIR HFA) 90 mcg/actuation INHALATION inhaler Inhale 2 Puffs as instructed every 4 hours as needed. - Inhalational Spacing Device (AEROCHAMBER) [facility] Spcr 1 Device. Use with Inhaler - BASAGLAR KWIKPEN U-100 INSULIN 100 unit/mL (3 mL) - Aspirin 81 mg Tab 2 tabs once a day. Take with food. (Patient not taking: Reported on 01/27/2020 ) - omeprazole (PRILOSEC) 20 mg capsule Take 1 capsule by mouth daily before breakfast. 1/2 hr before meal. - fluticasone (FLONASE) 50 mcg/actuation nasal spray Use 2 Sprays in each nostril once daily. (Patient not taking: Reported on 01/27/2020 ) - promethazine (PHENERGAN) 25 mg tablet Take 1 tablet by mouth every 4 hours as needed. FOR NAUSEA - LORazepam (ATIVAN) 1 mg tablet Take 1 tablet by mouth every 6 hours as needed for Anxiety (one hour before mri scan). (Patient not taking: Reported on 01/27/2020) - aripiprazole (ABILIFY) 10 mg ORAL tablet Take 1 tablet by mouth once daily. - triamcinolone acetonide 0.5 % TOPICAL cream Apply to affected area twice daily. Apply sparingly twice daily to control psoriasis (Patient not taking: Reported on 01/27/2020 ) No current facility-administered medications for this visit. ALLERGIES Allergen Reactions - Codeine Intolerance - Iv Contrast [Iodine] Vomiting - Primatene Mist [Epi* Vomiting PAST SURGICAL HISTORY Procedure Laterality Date - DELIVERY ONLY 1990, 1995 , low transverse - TUBAL LIGATION, FAMILY HISTORY Problem Relation Age of Onset - Diabetes Mother - Hypertension Mother - Stroke Mother TIA's - Heart Father @ 62 d/t [place] - Heart Maternal Grandfather - Diabetes Maternal Grandfather - Diabetes Sister @ (more content not included)... Normal [facility] XR FOOT 3V AP/LAT/OBL BILon 08-01-2021 XR FOOT 3V AP/LAT/OBL HARRIS * * *Final Report* * * DATE OF EXAM: Aug 01 2021 12:35PM [id number] - XR FOOT 3V AP/LAT/OBL HARRIS / PROCEDURE REASON: Pain * * * * Physician Interpretation * * * * CLINICAL INDICATION: Foot pain TECHNIQUE: 3 view radiographic study of the bilateral feet COMPARISON: None FINDINGS: Right foot: Mild first metatarsal phalangeal joint degenerative changes with small marginal osteophyte formation. No acute fracture or dislocation. Dorsal and plantar calcaneal enthesophytes. Left foot: No acute fracture or dislocation. Dorsal and plantar calcaneal enthesophytes. IMPRESSION: Mild right first metatarsal phalangeal joint degenerative changes. Bilateral calcaneal enthesophytes. Senior Economist: RAYMON Transcribe Date/Time: Aug 01 2021 1:52P Dictated by : RADHA TOWNSEND MD This examination was interpreted and the report reviewed and electronically signed by: RADHA OTWNSEND MD on Aug 01 2021 1:56PM EST [id number] Normal [facility] Toxicology Screen,Uron 10-13 Amphetamines, Urine Negative Normal Negative [facility] Lab Comment on above: Performed By: #### U TOX2 #### [facility] Routine Lab [address] [place] [phone] Barbiturates, Urine Negative Normal Negative [facility] Comment on above: Performed By: #### U TOX2 #### [facility]ine [facility] [address] [place] [phone] Benzodiazepines, Ur Negative Normal Negative [facility] Comment on above: Performed By: #### U TOX2 #### [facility]ine [facility] [address] [place] [phone] Cannabinoids, Urine Negative Normal Negative [facility] Comment on above: Performed By: #### U TOX2 #### [facility] Routine [facility] [address] [place] [phone] Cocaine, Urine Negative Normal Negative [facility] Reference Lab Comment on above: Performed By: #### U TOX2 #### [facility] Routine Lab [address] [place] [phone] Ethanol, Urine <11 Normal <11 [facility] Reference Lab Comment on above: Performed By: #### U TOX2 #### [facility] Routine Lab [address] [place] [phone] Opiates, Urine Abnormal Negative [facility] Reference Lab Comment on above: Result Comment: Prel iminary Cutoff threshold at 300 ng/mL. positive. Cutoff threshold at 300 ng/mL. Performed By: #### U TOX2 #### [facility] Routine Lab [address] [place], [place] [id number] Oxycodone, Urine Negative Normal Negative [facility] Reference Lab Comment on above: Performed By: #### U TOX2 #### [facility] Routine Lab [address] [place], [place] [address] Phencyclidine, Urine Negative Normal Negative [facility] Reference Lab Comment on above: Performed By: #### U TOX2 #### [facility] Routine Lab [address] [place], [place] [address] Vital Signs Date Time Vital Sign Value Performing Clinician Facility 02-02-2025 08:31-0400 Body height 172.72 cm No Primary Care Physician [facility] 02-02-2025 08:31-0400 Body mass index (BMI) [Ratio] 42.8 kg/m2 No Primary Care Physician [facility] 02-02-2025 08:31-0400 Body weight 127.91 kg No Primary Care Physician [facility] 02-02-2025 08:31-0400 Diastolic blood pressure 80 mm[Hg] No Primary Care Physician [facility] 02-02-2025 08:31-0400 Heart rate 68 /min No Primary Care Physician [facility] 02-02-2025 08:31-0400 Respiratory rate 18 /min No Primary Care Physician [facility] 02-02-2025 08:31-0400 Systolic blood pressure 177 mm[Hg] No Primary Care Physician [facility] 07-09-2024 13:00-0400 Blood Pressure Cuff Size ALMA LOPEZ MD [facility] 07-09-2024 13:00-0400 Blood Pressure Location ALMA LOPEZ MD [facility] 07-09-2024 13:00-0400 Blood Pressure Method ALMA LOPEZ MD [facility] 07-09-2024 13:00-0400 Body height 172.7 cm ALMA LOPEZ MD [facility] 07-09-2024 13:00-0400 Body temperature 98.78 [degF] ALMA LOPEZ MD [facility] 07-09-2024 13:00-0400 Body weight 105.5 kg ALMA LOPEZ MD [facility] 07-09-2024 13:00-0400 Diastolic Blood Pressure Non-Invasive 88 mm[Hg] ALMA LOPEZ MD [facility] 07-09-2024 13:00-0400 Heart rate 89 /min ALMA LOPEZ MD [facility] 07-09-2024 13:00-0400 Respiratory rate 20 /min ALMA LOPEZ MD [facility] 07-09-2024 13:00-0400 Systolic Blood Pressure Non-Invasive 184 mm[Hg] ALMA LOPEZ MD [facility] 04-24-2024 08:53-0400 Blood Pressure Cuff Size SILVINO ALFONSO DO [facility] 04-24-2024 08:53-0400 Blood Pressure Location SILVINO ALFONSO DO [facility] 04-24-2024 08:53-0400 Blood Pressure Method SILVINO Callejas [facility] 04-24-2024 08:53-0400 Body temperature 97.34 [degF] SILVINO ALFONSO DO [facility] 04-24-2024 08:53-0400 Diastolic Blood Pressure Non-Invasive 83 mm[Hg] SILVINO ALFONSO DO [facility] 04-24-2024 08:53-0400 Heart rate 79 /min SILVINO ALFONSO DO [facility] 04-24-2024 08:53-0400 Respiratory rate 16 /min SILVINO ALFONSO DO [facility] 04-24-2024 08:53-0400 Systolic Blood Pressure Non-Invasive 158 mm[Hg] [facility] 04-18-2024 06:20-0400 Body temperature 98.24 [degF] CRISTY KAPPER [employer] SHIFT LEAD-[employer]UM DEVELOPMENT MANAGER [facility] 04-18-2024 06:20-0400 Diastolic Blood Pressure Non-Invasive 77 mm[Hg] CRISTY KAPPER [employer] SHIFT LEAD-CURRICULUM DEVELOPMENT MANAGER [facility] 04-18-2024 06:20-0400 Heart rate 71 /min CRISTY KAPPER FA[employer] FO[employer] SHIFT LEAD-[employer]RICULUM DEVELOPMENT MANAGER [facility] 04-18-2024 06:20-0400 Reason For Taking VItal Signs CRISTY PLACIDOER FA[employer] FOOD SHIFT LEAD-[employer]RICULUM DEVELOPMENT MANAGER [facility] 04-18-2024 06:20-0400 Respiratory rate 18 /min CRISTY KAPPER FA[employer] SHIFT LEAD-[employer]IC[employer]UM DEVELOPMENT MANAGER [facility] 04-18-2024 06:20-0400 Systolic Blood Pressure Non-Invasive 145 mm[Hg] CRISTY KAPPER [employer] SHIFT LEAD-[employer]RICULUM DEVELOPMENT MANAGER [facility] [facility] 04-18-2024 03:21-0400 Body temperature 97.88 [degF] CRISTY KAPPER FA[employer] SHIFT LEAD-[employer]UM DEVELOPMENT MANAGER [facility] 04-18-2024 03:21-0400 Diastolic Blood Pressure Non-Invasive 95 mm[Hg] CRISTY KAPPER FA[employer] FO[employer] SHIFT LEAD-CURRICULUM DEVELOPMENT MANAGER [facility] 04-18-2024 03:21-0400 Heart rate 74 /min CRISTY KAPPER FA[employer] FO[employer] SHIFT LEAD-CURRICULUM DEVELOPMENT MANAGER [facility] 04-18-2024 03:21-0400 Reason For Taking VItal Signs CRISTY KAPPER FA[employer] FO[employer] SHIFT LEAD-CURRICULUM DEVELOPMENT MANAGER [facility] 04-18-2024 03:21-0400 Respiratory rate 18 /min CRISTY KAPPER FA[employer] FO[employer] SHIFT LEAD-CURRICULUM DEVELOPMENT MANAGER [facility] 04-18-2024 03:21-0400 Systolic Blood Pressure Non-Invasive 170 mm[Hg] CRISTY KAPPER FA[employer] FO[employer] SHIFT LEAD-CURRICULUM DEVELOPMENT MANAGER [facility] 04-17-2024 23:08-0400 Body temperature 98.42 [degF] CRISTY KAPPER FA[employer] FOOD SHIFT LEAD-CURRICULUM DEVELOPMENT MANAGER [facility] 04-17-2024 23:08-0400 Diastolic Blood Pressure Non-Invasive 76 mm[Hg] CRISTY KAPPER FA[employer] FO[employer] SHIFT LEAD-CURRICULUM DEVELOPMENT MANAGER [facility] 04-17-2024 23:08-0400 Heart rate 75 /min CRISTY KAPPER FA[employer] FOOD SHIFT LEAD-CURRICULUM DEVELOPMENT MANAGER [facility] 04-17-2024 23:08-0400 Reason For Taking VItal Signs CRISTY KAPPER FA[employer] FOOD SHIFT LEAD-CURRICULUM DEVELOPMENT MANAGER [facility] 04-17-2024 23:08-0400 Respiratory rate 18 /min CRISTY KAPPER FA[employer] FOOD SHIFT LEAD-CURRICULUM DEVELOPMENT MANAGER [facility] 04-17-2024 23:08-0400 Systolic Blood Pressure Non-Invasive 154 mm[Hg] CRISTY KAPPER FA[employer] FO[employer] SHIFT LEAD-CURRICULUM DEVELOPMENT MANAGER [facility] 04-17-2024 03:59-0400 Body weight 118.4 kg CRISTY LUTHER FA[employer] FO[employer] SHIFT LEAD-CURRICULUM DEVELOPMENT MANAGER [facility] 04-16-2024 13:52-0400 Body height 172.7 cm CRISTY LUTHER FA[employer] FO[employer] SHIFT LEAD-CURRICULUM DEVELOPMENT MANAGER [facility] 04-16-2024 13:52-0400 Body weight 117.9 kg CRISTY LUTHER FA[employer] FO[employer] SHIFT LEAD-CURRICULUM DEVELOPMENT MANAGER [facility] 04-16-2024 13:52-0400 Body weight 39.53 kg/m2 CRISTY LUTHER FA[employer] FOOD SHIFT LEAD-CURRICULUM DEVELOPMENT MANAGER [facility] 04-16-2024 10:09-0400 Body weight 117.9 kg CRISTY LUTHER FA[employer] FO[employer] SHIFT LEAD-CURRICULUM DEVELOPMENT MANAGER [facility] 04-16-2024 10:09-0400 Heart rate 80 /min CRISTY LUTHER FA[employer] FO[employer] SHIFT LEAD-CURRICULUM DEVELOPMENT MANAGER [facility] 03-31-2024 12:11-[address] TANIA BA DO [facility] 03-31-2024 12:11-[address] TANIA BA DO [facility] 03-31-2024 12:11-0400 Diastolic Blood Pressure Non-Invasive 86 mm[Hg] DR TANIA BA DO [facility] 03-31-2024 12:11-0400 Heart rate 79 /min DR TANIA BA DO [facility] 03-31-2024 12:11-0400 Respiratory rate 18 /min DR TANIA BA DO [facility] 03-31-2024 12:11-0400 Systolic Blood Pressure Non-Invasive 182 mm[Hg] DR TANIA BA DO [facility] 03-31-2024 11:22-0400 Diastolic Blood Pressure Non-Invasive 103 mm[Hg] DR TANIA BA DO [facility] 03-31-2024 11:22-0400 Heart rate 92 /min DR TANIA BA DO [facility] 03-31-2024 11:22-0400 Systolic Blood Pressure Non-Invasive 212 mm[Hg] DR TANIA BA DO [facility] 03-31-2024 11:17-[address] TANIA BA DO [facility] 03-31-2024 11:17-[address] TANIA BA DO [facility] 03-31-2024 11:17-0400 Diastolic Blood Pressure Non-Invasive 103 mm[Hg] DR TANIA BA DO [facility] 03-31-2024 11:17-0400 Heart rate 92 /min DR TANIA BA DO [facility] 03-31-2024 11:17-0400 Respiratory rate 18 /min DR ATNIA BA DO [facility] 03-31-2024 11:17-0400 Systolic Blood Pressure Non-Invasive 212 mm[Hg] DR TANIA BA DO [facility] 03-31-2024 08:46-[address] TANIA BA DO [facility] 03-31-2024 08:46-[address] TANIA BA DO [facility] 03-31-2024 08:46-0400 Body temperature 98.06 [degF] DR TANIA BA DO [facility] 03-31-2024 08:46-0400 Heart rate 92 /min DR TANIA BA DO [facility] 03-31-2024 08:46-0400 Respiratory rate 18 /min DR TANIA BA DO [facility] 08-27-2023 11:13-0500 Blood Pressure Location BRINDAJAYDA KINGOSIEL FA[employer] FO[employer] SHIFT LEAD-[employer]RICULUM DEVELOPMENT MANAGER [facility] 08-27-2023 11:13-0500 Blood Pressure Method BRINDAJAYDA KINGOSIEL FA[employer] FO[employer] SHIFT LEAD-CURRICULUM DEVELOPMENT MANAGER [facility] 08-27-2023 11:13-0500 Body temperature 98.24 [degF] BRINDAJAYDA KINGOSIEL FA[employer] FO[employer] SHIFT LEAD-CURRICULUM DEVELOPMENT MANAGER [facility] 08-27-2023 11:13-0500 Diastolic Blood Pressure Non-Invasive 91 1 BRINDA CHRISTINEOSIEL FA[employer] FO[employer] SHIFT LEAD-CURRICULUM DEVELOPMENT MANAGER [facility] 08-27-2023 11:13-0500 Heart rate 103 /min BRINDA CHAUDHRY FA[employer] FOOD SHIFT LEAD-CURRICULUM DEVELOPMENT MANAGER [facility] 08-27-2023 11:13-0500 Systolic Blood Pressure Non-Invasive 162 1 BRINDA CHAUDHRY FA[employer] FO[employer] SHIFT LEAD-CURRICULUM DEVELOPMENT MANAGER [facility] 08-26-2023 11:09-0500 Blood Pressure Location BRINDAJAYDA KINGOSIEL FAST FOOD SHIFT LEAD-CURRICULUM DEVELOPMENT MANAGER [facility] 08-26-2023 11:09-0500 Blood Pressure Method BRINDA CHAUDHRY FA[employer] FOOD SHIFT LEAD-CURRICULUM DEVELOPMENT MANAGER [facility] 08-26-2023 11:09-0500 Body temperature 97.7 [degF] BRINDA CHAUDHRY FA[employer] FO[employer] SHIFT LEAD-CURRICULUM DEVELOPMENT MANAGER [facility] 08-26-2023 11:09-0500 Diastolic Blood Pressure Non-Invasive 95 1 BRINDA CHAUDHRY FA[employer] FO[employer] SHIFT LEAD-CURRICULUM DEVELOPMENT MANAGER [facility] 08-26-2023 11:09-0500 Heart rate 87 /min BRINDA CHAUDHRY FA[employer] FOOD SHIFT LEAD-CURRICULUM DEVELOPMENT MANAGER [facility] 08-26-2023 11:09-0500 Respiratory rate 16 /min BRINDA CHAUDHRY FAST FOOD SHIFT LEAD-CURRICULUM DEVELOPMENT MANAGER [facility] 08-26-2023 11:09-0500 Systolic Blood Pressure Non-Invasive 144 1 BRINDA CHAUDHRY FA[employer] FO[employer] SHIFT LEAD-CURRICULUM DEVELOPMENT MANAGER [facility] 08-24-2023 11:08-0500 Body temperature 98.96 [degF] EMILY MAST FAST FOOD SHIFT LEAD-CURRICULUM DEVELOPMENT MANAGER [facility] 08-24-2023 11:08-0500 Diastolic Blood Pressure Non-Invasive 74 1 EMILY MAST FA[employer] FO[employer] SHIFT LEAD-CURRICULUM DEVELOPMENT MANAGER [facility] 08-24-2023 11:08-0500 Heart rate 106 /min EMILY MAST FAST FOOD SHIFT LEAD-CURRICULUM DEVELOPMENT MANAGER [facility] 08-24-2023 11:08-0500 Respiratory rate 18 /min EMILY MAST FA[employer] FOOD SHIFT LEAD-CURRICULUM DEVELOPMENT MANAGER [facility] 08-24-2023 11:08-0500 Systolic Blood Pressure Non-Invasive 134 1 EMILY MAST FA[employer] FO[employer] SHIFT LEAD-CURRICULUM DEVELOPMENT MANAGER [facility] 08-23-2023 11:33-0400 Body temperature 99.68 [degF] EMILY MAST FA[employer] FOOD SHIFT LEAD-CURRICULUM DEVELOPMENT MANAGER [facility] 08-23-2023 11:33-0400 Diastolic Blood Pressure Non-Invasive 86 1 EMILY MAST FA[employer] FO[employer] SHIFT LEAD-CURRICULUM DEVELOPMENT MANAGER [facility] 08-23-2023 11:33-0400 Heart rate 84 /min EMILY MAST FA[employer] FOOD SHIFT LEAD-CURRICULUM DEVELOPMENT MANAGER [facility] 08-23-2023 11:33-0400 Reason For Taking VItal Signs EMILY MAST FA[employer] FOOD SHIFT LEAD-CURRICULUM DEVELOPMENT MANAGER [facility] 08-23-2023 11:33-0400 Respiratory rate 18 /min EMILY MAST FAST FOOD SHIFT LEAD-CURRICULUM DEVELOPMENT MANAGER [facility] 08-23-2023 11:33-0400 Systolic Blood Pressure Non-Invasive 154 1 EMILY MAST FAST FOOD SHIFT LEAD-CURRICULUM DEVELOPMENT MANAGER [facility] 08-22-2023 11:44-0400 Blood Pressure Location EMILY MAST FAST FOOD SHIFT LEAD-CURRICULUM DEVELOPMENT MANAGER [facility] 08-22-2023 11:44-0400 Blood Pressure Method EMILY MAST FAST FOOD SHIFT LEAD-CURRICULUM DEVELOPMENT MANAGER [facility] 08-22-2023 11:44-0400 Body temperature 98.96 [degF] EMILY MAST FAST FOOD SHIFT LEAD-CURRICULUM DEVELOPMENT MANAGER [facility] 08-22-2023 11:44-0400 Diastolic Blood Pressure Non-Invasive 89 1 EMILY MAST FA[employer] FOOD SHIFT LEAD-CURRICULUM DEVELOPMENT MANAGER [facility] 08-22-2023 11:44-0400 Heart rate 96 /min EMILY MAST FAST FOOD SHIFT LEAD-CURRICULUM DEVELOPMENT MANAGER [facility] 08-22-2023 11:44-0400 Respiratory rate 14 /min EMILY MAST FAST FOOD SHIFT LEAD-CURRICULUM DEVELOPMENT MANAGER [facility] 08-22-2023 11:44-0400 Systolic Blood Pressure Non-Invasive 168 1 EMILY GATES FAST FOOD SHIFT LEAD-CURRICULUM DEVELOPMENT MANAGER [facility] 08-19-2023 13:50-0400 Body temperature 98.06 [degF] BRINDAJAYDA GUEVARASanaz FAST FOOD SHIFT LEAD-CURRICULUM DEVELOPMENT MANAGER [facility] 08-19-2023 13:50-0400 Diastolic Blood Pressure Non-Invasive 78 1 BRINDA GUEVARASanaz FAST FOOD SHIFT LEAD-CURRICULUM DEVELOPMENT MANAGER [facility] 08-19-2023 13:50-0400 Heart rate 96 /min BRINDA GUEVARASanaz FAST FOOD SHIFT LEAD-CURRICULUM DEVELOPMENT MANAGER [facility] 08-19-2023 13:50-0400 Reason For Taking VItal Signs BRINDA KINGOSIEL FAST FOOD SHIFT LEAD-CURRICULUM DEVELOPMENT MANAGER [facility] 08-19-2023 13:50-0400 Respiratory rate 18 /min BRINDAJAYDA GUEVARAN FAST FOOD SHIFT LEAD-CURRICULUM DEVELOPMENT MANAGER [facility] 08-19-2023 13:50-0400 Systolic Blood Pressure Non-Invasive 144 1 BRINDA GUEVARASanaz FAST FOOD SHIFT LEAD-CURRICULUM DEVELOPMENT MANAGER [facility] 08-19-2023 09:59-0400 Body temperature 98.06 [degF] BRINDA GUEVARAN FAST FOOD SHIFT LEAD-CURRICULUM DEVELOPMENT MANAGER [facility] 08-19-2023 09:59-0400 Diastolic Blood Pressure Non-Invasive 59 1 BRINDA GUEVARASanaz FAST FOOD SHIFT LEAD-CURRICULUM DEVELOPMENT MANAGER [facility] 08-19-2023 09:59-0400 Heart rate 97 /min BRINDA GUEVARASanaz FAST FOOD SHIFT LEAD-CURRICULUM DEVELOPMENT MANAGER [facility] 08-19-2023 09:59-0400 Reason For Taking VItal Signs BRINDA CHAUDHRY FAST FOOD SHIFT LEAD-CURRICULUM DEVELOPMENT MANAGER [facility] 08-19-2023 09:59-0400 Respiratory rate 18 /min BRINDA CHAUDHRY FAST FOOD SHIFT LEAD-CURRICULUM DEVELOPMENT MANAGER [facility] 08-19-2023 09:59-0400 Systolic Blood Pressure Non-Invasive 132 1 BRINDA CHAUDHRY FA[employer] FOOD SHIFT LEAD-CURRICULUM DEVELOPMENT MANAGER [facility] 08-19-2023 07:32-0400 Body temperature 98.42 [degF] BRINDA CHAUDHRY FAST FOOD SHIFT LEAD-CURRICULUM DEVELOPMENT MANAGER [facility] 08-19-2023 07:32-0400 Diastolic Blood Pressure Non-Invasive 64 1 BRINDA CHAUDHRY FAST FOOD SHIFT LEAD-CURRICULUM DEVELOPMENT MANAGER [facility] 08-19-2023 07:32-0400 Heart rate 103 /min BRINDA CHAUDHRY FAST FOOD SHIFT LEAD-CURRICULUM DEVELOPMENT MANAGER [facility] 08-19-2023 07:32-0400 Reason For Taking VItal Signs BRINDA CHAUDHRY FAST FOOD SHIFT LEAD-CURRICULUM DEVELOPMENT MANAGER [facility] 08-19-2023 07:32-0400 Respiratory rate 18 /min BRINDA CHAUDHRY FAST FOOD SHIFT LEAD-CURRICULUM DEVELOPMENT MANAGER [facility] 08-19-2023 07:32-0400 Systolic Blood Pressure Non-Invasive 144 1 BRINDA CHAUDHRY FAST FOOD SHIFT LEAD-CURRICULUM DEVELOPMENT MANAGER [facility] 08-19-2023 04:25-0400 Heart rate 96 /min BRINDA CHAUDHRY FAST FOOD SHIFT LEAD-CURRICULUM DEVELOPMENT MANAGER [facility] 08-19-2023 02:55-0400 Heart rate 92 /min BRINDA CHAUDHRY FAST FOOD SHIFT LEAD-CURRICULUM DEVELOPMENT MANAGER [facility] 08-18-2023 23:20-0400 Heart rate 90 /min BRINDA CHAUDHRY FAST FOOD SHIFT LEAD-CURRICULUM DEVELOPMENT MANAGER [facility] 08-18-2023 23:06-0400 Body height 172.7 cm BRINDA CHAUDHRY FAST FOOD SHIFT LEAD-CURRICULUM DEVELOPMENT MANAGER [facility] 08-18-2023 23:06-0400 Body weight 115.5 kg BRINDA CHAUDHRY FAST FOOD SHIFT LEAD-CURRICULUM DEVELOPMENT MANAGER [facility] 08-18-2023 23:06-0400 Body weight 38.73 kg/m2 BRINDA CHAUDHRY FAST FOOD SHIFT LEAD-CURRICULUM DEVELOPMENT MANAGER [facility] 08-18-2023 22:30-0400 Heart rate 90 /min BRINDA CHAUDHRY FAST FOOD SHIFT LEAD-CURRICULUM DEVELOPMENT MANAGER [facility] 08-18-2023 18:30-0400 Blood Pressure Location BRINDA CHAUDHRY FAST FOOD SHIFT LEAD-CURRICULUM DEVELOPMENT MANAGER [facility] 08-18-2023 18:30-0400 Blood Pressure Method BRINDA CHAUDHRY FAST FOOD SHIFT LEAD-CURRICULUM DEVELOPMENT MANAGER [facility] 08-18-2023 17:30-0400 Blood Pressure Location BRINDA CHAUDHRY FAST FOOD SHIFT LEAD-CURRICULUM DEVELOPMENT MANAGER [facility] 08-18-2023 17:30-0400 Blood Pressure Method BRINDA CHAUDHRY FAST FOOD SHIFT LEAD-CURRICULUM DEVELOPMENT MANAGER [facility] 08-18-2023 11:00-0400 Heart rate 97 /min No Primary Care Physician [facility] 08-18-2023 09:16-0400 Body temperature 98.6 [degF] No Primary Care Physician [facility] 08-18-2023 09:16-0400 Diastolic blood pressure 79 mm[Hg] No Primary Care Physician [facility] 08-18-2023 09:16-0400 Respiratory rate 18 /min No Primary Care Physician [facility] 08-18-2023 09:16-0400 SaO2% (BldA) [Mass fraction] 97 % No Primary Care Physician [facility] 08-18-2023 09:16-0400 Systolic blood pressure 178 mm[Hg] No Primary Care Physician [facility] 08-18-2023 06:00-0400 Body mass index (BMI) [Ratio] 39.2 kg/m2 No Primary Care Physician [facility] 08-18-2023 06:00-0400 Body weight 116.9 kg No Primary Care Physician [facility] 08-16-2023 07:00-0400 Inhaled oxygen flow rate 4 L/min No Primary Care Physician [facility] 08-13-2023 10:12-0400 Body height 172.72 cm No Primary Care Physician [facility] 08-12-2023 21:30-0400 Blood Pressure Cuff Size NIDAL CHOUJAA DO [facility] 08-12-2023 21:30-0400 Blood Pressure Location NIDAL CHOUJAA DO [facility] 08-12-2023 21:30-0400 Blood Pressure Method NIDAL CHOUJAA DO [facility] 08-12-2023 21:30-0400 Diastolic Blood Pressure Non-Invasive 56 1 NIDAL CHOUJAA DO [facility] 08-12-2023 21:30-0400 Heart rate 120 /min NIDAL CHOUJAA DO [facility] 08-12-2023 21:30-0400 Respiratory rate 18 /min NIDAL CHOUJAA DO [facility] 08-12-2023 21:30-0400 Systolic Blood Pressure Non-Invasive 108 1 NIDAL CHOUJAA DO [facility] 08-12-2023 19:31-0400 Blood Pressure Cuff Size NIDAL CHOUJAA DO [facility] 08-12-2023 19:31-0400 Blood Pressure Location NIDAL CHOUJAA DO [facility] 08-12-2023 19:31-0400 Blood Pressure Method NIDAL CHOUJAA DO [facility] 08-12-2023 19:31-0400 Diastolic Blood Pressure Non-Invasive 54 1 NIDAL CHOUJAA DO [facility] 08-12-2023 19:31-0400 Heart rate 120 /min NIDAL CHOUJAA DO [facility] 08-12-2023 19:31-0400 Respiratory rate 18 /min NIDAL CHOUJAA DO [facility] 08-12-2023 19:31-0400 Systolic Blood Pressure Non-Invasive 109 1 NIDAL CHOUJAA DO [facility] 08-12-2023 18:30-0400 Blood Pressure Location NIDAL CHOUJAA DO [facility] 08-12-2023 18:30-0400 Blood Pressure Method NIDAL CHOUJAA DO [facility] 08-12-2023 18:30-0400 Diastolic Blood Pressure Non-Invasive 73 1 NIDAL CHOUJAA DO [facility] 08-12-2023 18:30-0400 Heart rate 115 /min NIDAL CHOUJAA DO [facility] 08-12-2023 18:30-0400 Respiratory rate 18 /min NIDAL CHOUJAA DO [facility] 08-12-2023 18:30-0400 Systolic Blood Pressure Non-Invasive 131 1 NIDFARHAT CHOUJAA DO [facility] 08-12-2023 17:30-0400 Heart rate 114 /min NIDAL CHOUJAA DO [facility] 08-12-2023 13:25-0400 Body temperature 97.34 [degF] HERNANAL CHOUJAA DO [facility] 06-15-2023 11:33-0400 Body temperature 98.42 [degF] CRISTY KAPPER FA[employer] FO[employer] SHIFT LEAD-CURRICULUM DEVELOPMENT MANAGER [facility] 06-15-2023 11:33-0400 Diastolic Blood Pressure Non-Invasive 86 1 CRISTY KAPPER FA[employer] FOOD SHIFT LEAD-CURRICULUM DEVELOPMENT MANAGER [facility] 06-15-2023 11:33-0400 Heart rate 101 /min CRISTY KAPPER FA[employer] FOOD SHIFT LEAD-CURRICULUM DEVELOPMENT MANAGER [facility] 06-15-2023 11:33-0400 Reason For Taking VItal Signs CRISTY CUMMINSER FAST FOOD SHIFT LEAD-CURRICULUM DEVELOPMENT MANAGER [facility] 06-15-2023 11:33-0400 Respiratory rate 18 /min CRISTY KAPPER FAST FOOD SHIFT LEAD-CURRICULUM DEVELOPMENT MANAGER [facility] 06-15-2023 11:33-0400 Systolic Blood Pressure Non-Invasive 165 1 CRISTY KAPPER FAST FOOD SHIFT LEAD-CURRICULUM DEVELOPMENT MANAGER [facility] 06-15-2023 07:16-0400 Body temperature 98.6 [degF] CRISTY KAPPER FAST FOOD SHIFT LEAD-CURRICULUM DEVELOPMENT MANAGER [facility] 06-15-2023 07:16-0400 Diastolic Blood Pressure Non-Invasive 86 1 CRISTY KAPPER FAST FOOD SHIFT LEAD-CURRICULUM DEVELOPMENT MANAGER [facility] 06-15-2023 07:16-0400 Heart rate 96 /min CRISTY KAPPER FAST FOOD SHIFT LEAD-CURRICULUM DEVELOPMENT MANAGER [facility] 06-15-2023 07:16-0400 Reason For Taking VItal Signs CRISTY KAPPER FAST FOOD SHIFT LEAD-CURRICULUM DEVELOPMENT MANAGER [facility] 06-15-2023 07:16-0400 Respiratory rate 18 /min CRISTY KAPPER FAST FOOD SHIFT LEAD-CURRICULUM DEVELOPMENT MANAGER [facility] 06-15-2023 07:16-0400 Systolic Blood Pressure Non-Invasive 134 1 CRISTY KAPPER FAST FOOD SHIFT LEAD-CURRICULUM DEVELOPMENT MANAGER [facility] 06-15-2023 03:10-0400 Body temperature 98.06 [degF] CRISTY KAPPER FAST FOOD SHIFT LEAD-CURRICULUM DEVELOPMENT MANAGER [facility] 06-15-2023 03:10-0400 Diastolic Blood Pressure Non-Invasive 81 1 CRISTY KAPPER FAST FOOD SHIFT LEAD-CURRICULUM DEVELOPMENT MANAGER [facility] 06-15-2023 03:10-0400 Heart rate 94 /min CRISTY KAPPER FAST FOOD SHIFT LEAD-CURRICULUM DEVELOPMENT MANAGER [facility] 06-15-2023 03:10-0400 Reason For Taking VItal Signs CRISTY KAPPER FAST FOOD SHIFT LEAD-CURRICULUM DEVELOPMENT MANAGER [facility] 06-15-2023 03:10-0400 Respiratory rate 18 /min CRISTY KAPPER FAST FOOD SHIFT LEAD-CURRICULUM DEVELOPMENT MANAGER [facility] 06-15-2023 03:10-0400 Systolic Blood Pressure Non-Invasive 144 1 CRISTY KAPPER FAST FOOD SHIFT LEAD-CURRICULUM DEVELOPMENT MANAGER [facility] 06-14-2023 23:13-0400 Heart rate 100 /min CRISTY KAPPER FAST FOOD SHIFT LEAD-CURRICULUM DEVELOPMENT MANAGER [facility] 06-14-2023 22:37-0400 Heart rate 106 /min CRISTY KAPPER FAST FOOD SHIFT LEAD-CURRICULUM DEVELOPMENT MANAGER [facility] 06-14-2023 19:58-0400 Heart rate 106 /min CRISTY KAPPER FAST FOOD SHIFT LEAD-CURRICULUM DEVELOPMENT MANAGER [facility] 06-14-2023 19:00-0400 Heart rate 105 /min CRISTY KAPPER FA[employer] FO[employer] SHIFT LEAD-CURRICULUM DEVELOPMENT MANAGER [address] [place] [address] 06-14-2023 03:21-0400 Heart rate 99 /min CRISTY KAPPER FA[employer] FOOD SHIFT LEAD-CURRICULUM DEVELOPMENT MANAGER [facility] 06-13-2023 15:59-0400 Heart rate 108 /min CRISTY KAPPER FAST FOOD SHIFT LEAD-CURRICULUM DEVELOPMENT MANAGER [facility] 06-13-2023 06:09-0400 Body weight 120.6 kg CRISTY KAPPER FA[employer] FO[employer] SHIFT LEAD-CURRICULUM DEVELOPMENT MANAGER [address] [place] [address] 06-12-2023 18:17-0400 Body height 172.7 cm CRISTY KAPPER FA[employer] FO[employer] SHIFT LEAD-CURRICULUM DEVELOPMENT MANAGER [address] [place] [address] 06-12-2023 18:17-0400 Body weight 114 kg CRISTY KAPPER FA[employer] FO[employer] SHIFT LEAD-CURRICULUM DEVELOPMENT MANAGER [address] [place] [address] 06-12-2023 18:17-0400 Body weight 38.22 kg/m2 CRISTY KAPPER FA[employer] FO[employer] SHIFT LEAD-CURRICULUM DEVELOPMENT MANAGER [address] [place] [address] 06-12-2023 12:14-0400 Body height 172.7 cm CRISTY KAPPER FA[employer] FO[employer] SHIFT LEAD-CURRICULUM DEVELOPMENT MANAGER [address] [place] [address] 06-12-2023 12:14-0400 Body weight 114 kg CRISTY KAPPER FA[employer] FO[employer] SHIFT LEAD-CURRICULUM DEVELOPMENT MANAGER [address] [place] [address] 05-28-2023 10:57-0400 Body mass index (BMI) [Ratio] 38.6 kg/m2 No Primary Care Physician [facility] 05-28-2023 10:57-0400 Body weight 114.3 kg No Primary Care Physician [facility] 05-28-2023 10:57-0400 Diastolic blood pressure 84 mm[Hg] No Primary Care Physician [facility] 05-28-2023 10:57-0400 Heart rate 90 /min No Primary Care Physician [facility] 05-28-2023 10:57-0400 Respiratory rate 16 /min No Primary Care Physician [facility] 05-28-2023 10:57-0400 Systolic blood pressure 121 mm[Hg] No Primary Care Physician [facility] 01-04-2023 11:50-0400 Diastolic Blood Pressure Non-Invasive 94 1 STEFAN NAJERA MD [facility] 01-04-2023 11:50-0400 Systolic Blood Pressure Non-Invasive 162 1 STEFAN NAJERA MD [facility] 01-04-2023 10:37-0400 Body temperature 97.34 [degF] STEFAN NAJERA MD [facility] 01-04-2023 10:37-0400 Diastolic Blood Pressure Non-Invasive 100 1 STEFAN NAJERA MD [facility] 01-04-2023 10:37-0400 Heart rate 102 /min STEFAN NAJERA MD [facility] 01-04-2023 10:37-0400 Respiratory rate 20 /min STEFAN NAJERA MD [facility] 01-04-2023 10:37-0400 Systolic Blood Pressure Non-Invasive 182 1 STEFAN NAJERA [facility] [facility] 11-27-2021 11:33-0500 Diastolic blood pressure 78 mm[Hg] GAMA HUSAIN MD [facility] 11-27-2021 11:33-0500 Heart rate 96 /min GAMA HUSAIN MD [facility] 11-27-2021 11:33-0500 Respiratory rate 20 /min GAMA HUSAIN MD [facility] 11-27-2021 11:33-0500 Systolic blood pressure 138 mm[Hg] GAMA HUSAIN MD [facility] 11-27-2021 08:21-0500 Body height 172.7 cm GAMA HUSAIN MD [facility] 11-27-2021 08:21-0500 Body temperature 98.42 [degF] GAMA HUSAIN MD [facility] 11-27-2021 08:21-0500 Body weight 123 kg GAMA HUSAIN MD [facility] 11-27-2021 08:21-0500 Diastolic blood pressure 88 mm[Hg] GAMA HUSAIN MD [facility] 11-27-2021 08:21-0500 Heart rate 97 /min GAMA HUSAIN MD [facility] 11-27-2021 08:21-0500 Respiratory rate 20 /min GAMA HUSAIN MD [facility] 11-27-2021 08:21-0500 Systolic blood pressure 150 mm[Hg] GAMA HUSAIN MD [facility] Encounters Encounter Date Encounter Type Care Provider Facility Start: 02-08-2025 End: 02-08-2025 ambulatory No Primary Care Physician [facility] Work Phone: Start: 02-08-2025 End: 02-08-[address] Onel Harrell MD -Laboratory Work Phone: Start: 02-08-2025 End: 02-08-2025 ambulatory Clifford Sarmiento Facility:[facility] Start: 02-02-2025 End: 02-02-[address] Vanesa Brown MD -[facility] Work Phone: Start: 02-02-2025 End: 02-02-2025 ambulatory No Primary Care Physician Facility[place] Start: 01-25-2025 End: 01-25-2025 ambulatory CLIFFORD SARMIENTO Facility:[id number] Start: 01-11-2025 End: 01-19-2025 Evaluation and management of inpatient CLIFFORD SARMIENTO Facility:[id number] Start: 01-09-2025 End: 01-09-2025 Emergency department patient visit CLIFFORD SARMIENTO DO Facility:[facility] Start: 07-09-2024 End: 07-09-2024 Emergency department patient visit ALMA LOPEZ MD [facility] Start: 06-09-2024 ambulatory No Primary Car e Physician Facility:[facility] Start: 04-24-2024 End: 04-24-2024 Emergency department patient visit SILVINO ROROCLAIRE MONROY [facility] Start: 04-16-2024 End: 04-18-2024 Emergency department patient visit EMILY GATES FAST FOOD SHIFT LEAD-CURRICULUM DEVELOPMENT MANAGER Facility:B Start: 04-16-2024 End: 04-18-2024 Observation CRISTY LUTHER FAST FOOD SHIFT LEAD-CURRICULUM DEVELOPMENT MANAGER [facility] Start: 03-31-2024 End: 03-31-2024 Emergency department patient visit DR TANIA BA DO [facility] Start: 12-15-2023 End: 12-15-2023 Emergency department patient visit CLIFFORD SARMIENTO DO Facility:[facility] Start: 08-27-2023 End: 08-31-2023 ambulatory EMILY MAST FAST FOOD SHIFT LEAD-CURRICULUM DEVELOPMENT MANAGER Facility:[facility] Start: 08-27-2023 End: 08-31-2023 Outreach Lab EMILY MAST FAST FOOD SHIFT LEAD-CURRICULUM DEVELOPMENT MANAGER [facility] Start: 08-27-2023 End: 08-27-2023 ambulatory EMILY MAST FAST FOOD SHIFT LEAD-CURRICULUM DEVELOPMENT MANAGER Facility:[facility] Start: 08-27-2023 End: 08-27-2023 SAME DAY STAY BRINDA KINGNEN FAST FOOD SHIFT LEAD-CURRICULUM DEVELOPMENT MANAGER [facility] Start: 08-26-2023 End: 08-26-2023 ambulatory EMILY MAST FAST FOOD SHIFT LEAD-CURRICULUM DEVELOPMENT MANAGER Facility:[facility] Start: 08-26-2023 End: 08-26-2023 SAME DAY STAY BRINDAJAYDA KINGNEN FAST FOOD SHIFT LEAD-CURRICULUM DEVELOPMENT MANAGER [facility] Start: 08-25-2023 End: 08-25-2023 ambulatory EMILY MAST FAST FOOD SHIFT LEAD-CURRICULUM DEVELOPMENT MANAGER Facility:[facility] Start: 08-24-2023 End: 08-24-2023 ambulatory EMILY MAST FAST FOOD SHIFT LEAD-CURRICULUM DEVELOPMENT MANAGER Facility:[facility] Start: 08-24-2023 End: 08-24-2023 SAME DAY STAY EMILY MAST FAST FOOD SHIFT LEAD-CURRICULUM DEVELOPMENT MANAGER [facility] Start: 08-23-2023 End: 08-23-2023 ambulatory EMILY MAST FAST FOOD SHIFT LEAD-CURRICULUM DEVELOPMENT MANAGER Facility:[facility] Start: 08-23-2023 End: 08-23-2023 SAME DAY STAY EMILY MAST FAST FOOD SHIFT LEAD-CURRICULUM DEVELOPMENT MANAGER [facility] Start: 08-22-2023 End: 08-22-2023 ambulatory EMILY MAST FAST FOOD SHIFT LEAD-CURRICULUM DEVELOPMENT MANAGER Facility:B Start: 08-22-2023 End: 08-22-2023 SAME DAY STAY EMILY MAST FAST FOOD SHIFT LEAD-CURRICULUM DEVELOPMENT MANAGER [facility] Start: 08-18-2023 End: 08-19-2023 ambulatory BRINDA GUEVARAN FAST FOOD SHIFT LEAD-CURRICULUM DEVELOPMENT MANAGER Facility:[facility] Start: 08-18-2023 End: 08-19-2023 Observation BRINDA KINGNEN FAST FOOD SHIFT LEAD-CURRICULUM DEVELOPMENT MANAGER [facility] Start: 08-18-2023 Non-patient / Non-visit No Stephania arthur [facility] Physician [facility] Work Phone: Start: 08-17-2023 Non-patient / Non-visit No Stephania arthur Care Physician [facility] Work Phone: Start: 08-16-2023 Non-patient / Non-visit No Stephania arthur Care Physician [facility] Work Phone: Start: 08-15-2023 Non-patient / Non-visit No Stephania arthur Care Physician [facility] Work Phone: Start: 08-14-2023 Non-patient / Non-visit No Stephania arthur Care Physician [facility] Work Phone: Start: 08-13-2023 Non-patient / Non-visit No Stephania sandhya Care Physician [facility] Work Phone: Start: 08-12-2023 Non-patient / Non-visit No Stephania sandhya Care Physician [facility] Work Phone: Start: 08-12-2023 End: 08-18-2023 Evaluation and management of inpatient No Primary Care Physician [facility] Work Phone: Start: 08-12-2023 End: 08-12-2023 Emergency department patient visit KATELYNN NOEL DO [facility] Start: 06-20-2023 End: 06-24-2023 ambulatory EMILY MAST FAST FOOD SHIFT LEAD-CURRICULUM DEVELOPMENT MANAGER Facility:B Start: 06-20-2023 End: 06-24-2023 Outreach Lab EMILY MAST FAST FOOD SHIFT LEAD-CURRICULUM DEVELOPMENT MANAGER [facility] Start: 06-13-2023 ambulatory CRISTY LUTHER FAST FOOD SHIFT LEAD-CURRICULUM DEVELOPMENT MANAGER Facility:[facility] Start: 06-12-2023 End: 06-15-2023 Evaluation and management of inpatient CRISTY LUTHER FAST FOOD SHIFT LEAD-CURRICULUM DEVELOPMENT MANAGER [facility] Start: 05-28-2023 End: 05-28-2023 Admission to same day surgery center No Primary Care Physician [facility] Start: 05-28-2023 End: 05-28-2023 Patient encounter procedure No Primary Care Physician [facility] Work Phone: Start: 01-04-2023 End: 01-04-2023 Emergency department patient visit STEFAN NAJERA MD [facility] Start: 09-19-2022 Orders Only Marley Lares MD Work Phone: [facility] [place] Comment on above: Pre-operative cleara nce (Primary Dx) Start: 09-19-2022 Preoperative state Marley Lares MD Work Phone: [facility] [place] Start: 11-27-2021 End: 11-27-2021 Emergency department patient visit GAMA HUSAIN MD [facility] Procedures Date Procedure Procedure Detail Performing Clinician Start: 08-17-2023 Radiologic examinati on of knee No Primary Care Physician Start: 08-17-2023 CT of head without contrast No Primary Care Physician Start: 08-16-2023 Plain chest X-ray No Pr imary Care Physician Start: 08-13-2023 CT of abdomen No Primar y Care Physician section GAMA BUTLER SA, MD Plan of Treatment Date Care Activity Detail Author Start: 08-18-2023 Patient discharge [facility] Start: 08-18-2023 Referral to occupati onal therapist [facility] Start: 08-18-2023 Referral to service [facility] Start: 08-17-2023 Care regimes management [facility] Start: 08-17-2023 Notification of physician [facility] Start: 08-17-2023 [facility] Start: 08-16-2023 Inhalation therapy procedure [facility] Start: 08-15-2023 Bacteria identified in Blood by Culture Blood Culture [facility] Start: 08-15-2023 End: 08-15-2023 Blood culture [facility] Start: 08-15-2023 [facility] Start: 08-14-2023 Consultation [facility] Start: 08-13-2023 Application of intermittent pneumatic compression device [facility] Start: 08-12-2023 Assessment of risk o f venous thromboembolism [facility] Start: 08-12-2023 Care regimes management [facility] Start: 08-12-2023 Insertion of cathete r into peripheral vein [facility] Start: 08-12-2023 Measuring intake and output [facility] Start: 08-12-2023 Notification of physician [facility] Start: 08-12-2023 Patient referral to dietitian [facility] Start: 08-12-2023 Providing care accor ding to standard [facility] Start: 08-12-2023 Vital signs measurements [facility] Start: 08-12-2023 [facility] Start: 08-12-2023 Admission procedure [facility] Start: 08-12-2023 End: 08-12-2023 Following clinical pathway protocol [facility] Start: 05-28-2023 Evaluation of diagno stic study results [facility] Start: 06-20-2022 Influenza vaccination INFLUENZA (#1) [facility] Start: 2018 SHINGRIX VACCINE (1 of 2) DAY GRIX VACCINE (1 of 2) [facility] Start: 2013 COLOGUARD (FIT-DNA) COLOGUARD (FIT-D NA) [facility] Start: 2013 Colonoscopy COLONOSCOPY [facility] Start: 2013 COLORECTAL CANCER SCREENING COLORECTAL CANCER SCREENING [facility] Start: [address] COLONOGRAPHY [facility] Start: 2013 DIABETES SCREEN DIABETES SCREEN [facility] Start: 2013 FECAL OCCULT BLOOD FECAL OCCULT BLOO D [facility] Start: 2013 LIPID SCREEN LIPID SCREEN [facility] Start: 2013 SIGMOIDOSCOPY SIGMOIDOSCOPY [facility] Start: 2008 Mammography MAMMOGRAM [facility] Start: 1998 HPV TESTING HPV TESTING [facility] Start: 1989 PAP TESTING PAP TESTING [facility] Start: 1987 Urine microalbumin profile DTAP,TDAP,TD (1 - Tdap) [facility] Start: 1986 ANNUAL PCP TEAM TOWER FOREMAN ANSELMO DISEASE VISIT ANNUAL PCP TEAM CHRONIC DISEASE VISIT [facility] Start: 1986 BP CONTROLLED (<130/80) BP CONTROLLE D (<130/80) [facility] Start: 1986 HEPATITIS C SCREENING HEPATITIS C SC NATYNING [facility] Start: 1986 HIV SCREENING HIV SCREENING [facility] Start: 1986 SPIROMETRY SPIROMETRY [facility] Start: 1974 PNEUMOCOCCAL (1 - PCV) PNEUMOCOCCAL (1 - PCV) [facility] Start: 1968 COVID-19 VACCINE (#1) COVID-19 VACCI NE (#1) [facility] Start: 1968 HEPATITIS B (1 of 3 - 3-dose series) HEPATITIS B (1 of 3 - 3-dose series) [facility] NM Heart Views W str ess and W radionuclide IV [facility] Patient referral [facility] Work Phone: End: 10-19-2023 Radiologic exam chest 2 views XR CHEST 2V FRONTAL/LAT Radiology Routine Pre-operative clearance 1 Occurrences starting 09/20/2022 until 10/19/2023 [facility] Work Phone: Comment on above: 1 Occurrences starti ng 09/20/2022 until 10/19/2023 End: 10-19-2023 SPIROMETRY WITH DILATOR IF OBSTRUCTED SPIROMETRY WITH DILATOR IF OBSTRUCTED PFT Routine Pre-operative clearance 1 Occurrences starting 09/20/2022 until 10/19/2023 [facility] Work Phone: Comment on above: 1 Occurrences starti ng 09/20/2022 until 10/19/2023 [facility] Immunizations Immunization Date Immunization Notes Care Provider Fa alvin 06-11-2021 SARS-CoV-2 (COVID-19 ) mRNA-1273 vaccine CRISTY LUTHER FAST FOOD SHIFT LEAD-CURRICULUM DEVELOPMENT MANAGER [facility] 05-14-2021 SARS-CoV-2 (COVID-19 ) mRNA-1273 vaccine CRISTY LUTHER FAST FOOD SHIFT LEAD-CURRICULUM DEVELOPMENT MANAGER [facility] Payers Date Payer Category Payer Self-pay [id number] 2021 Unknown [id number] 2011 Medicaid [employer] [id number] 2011-Present [phone] [address] [place] [address] Medicaid [id number] 1968 Unknown [id number] 1968 Unknown [id number] ..[id number] 1968 Unknown [id number]..[id number] 1968 Unknown [id number] .[id number]. 1968 Unknown [id number] 2.840.1.553226.3.579.2. 1968 Unknown [id number] 2.840.1.870349.3.579.2. 1968 Unknown [id number] 2.840.1.433399.3.579.2. 1968 Unknown [id number] 2.840.1.070036.3.579.2. 1968 Unknown [id number] 2.840.1.050517.3.579.2. 1968 Unknown [id number] 2.840.1.991773.3.579.2 1968 Unknown [id number] .840.1.776833.3.579.2. 1968 Unknown [id number] 2.840.1.323084.3.579.2 1968 Unknown [id number] .840.1.488548.3.579.2 1968 Unknown [id number] 2.840.1.407849.3.579.2. 1968 Unknown [id number] 840.1.334704.3.579.2. 1968 Unknown [id number] .840.1.957317.3.579.2. 1968 Unknown [id number] .840.1.643803.3.579.2. 1968 Unknown [id number] 2.840.1.001753.3.579.2.627 Unknown [id number] 2.840.1.919155.3.579.2.462 Unknown [id number] Unknown [id number] [id number] Social History Date Type Detail Facility Start: 05-30-2019 Never smoked t obacco (finding) [facility] Sex Assigned At [facility] Start: 08-01-2021 End: 08-13-2023 Tobacco smoking status NHIS Smokes tobacco daily [facility] History of tobacco use [facility]ig[facility] Start: 08-01-2021 Cigarettes smoked current (pack per day) - Reported 1 [facility] Start: 08-01-2021 Tobacco use and exposure Smokeless tobacco non-user [facility] Start: 08-01-2021 Alcohol intake Current non-dr bridge maintainer of alcohol (finding) [facility] Start: 08-01-2021 Tobacco Comment 1/2 PPD [facility] Start: 1970 [facility] At [facility] Start: 06-12-2023 End: 08-18-2023 Tobacco smoking status Heavy tobacco smoker (finding) [facility] Comment on above: minimal use in past 2 weeks. 1-3 cigarettes /day. has not been smoking the last week 08/18/2023 Tobacco smoking status Smoker (finding) A [facility] Comment on above: minimal use in past 2 weeks. 1-3 cigarettes /day. has not been smoking the last week 08/18/2023 Start: 08-13-2023 Tobacco smoking stat us [facility] Unknown if ever smoked [facility] Start: 02-14-2025 Sex Female (finding) [facility] Medical Equipment Procedure Code Equipment Code Equipment Origin al Text Equipment Identifier Dates Start: 12-03-2019 Goals Date Patient Goal Desired Activity /State Functional Status Date Assessment Result Facility 04-24-2024 Functional Status Independent Aranza [facility] 04-24-2024 Functional Status Awake [facility] 04-18-2024 Functional Status Repositions self [facility] 04-18-2024 Functional Status [facility] 04-18-2024 Functional Status bilateral knee high gisela lied/on [facility] 04-17-2024 Functional Status Aranza Ign[facility] 04-17-2024 Functional Status Aranza Ignacio [facility] 04-17-2024 Functional Status Room check performed [facility] 04-17-2024 Functional Status [facility] 04-17-[facility] Functional Status Aranza rod [facility] 04-17-2024 Functional Status Aranza Ignacio [facility] 04-16-2024 Functional Status [facility] 04-16-2024 Functional Status 100 Aranza Ignacio [facility] 04-16-2024 Functional Status Aranza Ignacio [facility] 04-16-2024 Functional Status Aranza Ignacio [facility] 03-31-2024 Functional Status Independent Aranza Ignacio [facility] 03-31-2024 Functional Status ID band on, Allergy Band on, Call device within reach, Bed in low position, Wheels locked, Upper/Half-Length side-rails up, Visitor at bedside, Safety level maintained [facility] 08-23-2023 Functional Status Standard Safet y Visitor at bedside [facility] 08-19-2023 Functional Status Nurse Safety Ben walton q2hrs Performed Other: [id number] [facility] 08-19-2023 Functional Status Room check performed [facility] 08-19-2023 Functional Status Mobile home Aranza Ignacio [facility] 08-19-2023 Functional Status Aranza Ignacio [facility] 08-19-2023 Functional Status bilateral knee high removed/off [facility] 08-19-2023 Functional Status Aranza Ignacio [facility] 08-18-2023 Functional status Ambulates Aranza Ignacio [facility] 08-12-2023 Functional Status ID band on, Allergy Band on, Call device within reach, Bed in low position, Wheels locked, Upper/Half-Length side-rails up, Visitor at bedside [facility] 06-15-2023 Functional Status Up to bedside commode A [facility] 06-15-2023 Functional Status bilateral knee high removed/off [facility] 06-15-2023 Functional Status Identified as high risk, Fall ID band on, Room located near nursing station, Bed alert on, Door open, Bathroom light on, Non-Slip footwear, Room check performed [facility] 06-15-2023 Functional Status [facility] 06-15-2023 Functional Status [facility] 06-14-2023 Functional Status [facility] 06-14-2023 Functional Status Breakfast Percent 10 [facility] 06-14-2023 Functional Status [facility] 06-13-2023 Functional Status [facility] 06-13-2023 Functional Status Up to Chair Ot her: Dangle at bedside [facility] 06-13-2023 Functional Status Mobility Rich tance Level Independent [facility] 06-13-2023 Functional Status Single level home [facility] 06-12-2023 Functional Status [facility] 01-04-2023 Functional Status Independent [facility] 01-04-2023 Functional Status Standard Safet y ID band on, Allergy Band on, Call device within reach, Bed in low position, Wheels locked, Upper/Half-Length side-rails up, Phone within reach, personal items within reach, Visitor at bedside [facility] Mental Status Date Assessment Result Facility 07-09-2024 Mental Status Orientation Oriented x 4 [facility] 04-24-2024 Mental Status Orientation Oriented x 4 [facility] 04-24-2024 Mental Status [facility] 04-18-2024 Mental Status Oriented x 4 [facility] 04-18-2024 Mental Status [facility] 04-17-2024 Mental Status [facility] 03-31-2024 Mental Status Orientation Oriented x 4 [facility] 03-31-2024 Mental Status [facility] 08-19-2023 Mental Status Oriented x 4 [facility] 08-18-2023 Mental Status [facility] 08-18-2023 Mental Status [facility] 08-18-2023 Cognitive function Voice/Name [facility] Work Phone: 08-12-2023 Mental Status Orientation Oriented x 4 [facility] 06-15-2023 Mental Status Oriented x 4 [facility] 06-15-2023 Mental Status [facility] 06-14-2023 Mental Status [facility] 01-04-2023 Mental Status Orientation Oriented x 4 [facility] 01-04-2023 Mental Status [facility] Clinical Notes 08-01-2021 to 02-02-2025 Note Date & Type Note Facility 02-02-2025 Evaluation note Diagnosis Onset Date Resolution Diabetes chronic February 02 10:31am Dyslipidemia chronic February 02, 2025 10:31am Hypertension chronic February 02, 2025 10:31am Morbid obesity with BMI of 40.0-44.9, adult chronic February 02, 2025 10:31am Renal artery stenosis chronic Apr 2024 10:31am [facility] Work Phone: [phone]) 826-351504-08-2025 NoteHNO ID: [id number] Author: DARREN ROBERT RPh Service: Pharmacy Author Type: Pharmacist Type: Plan of Care Filed: 01/25/2025 19:28 Note Text: PHARMACY MEDICATION REVIEW Patient Name: Nadia Anglin : 1970 The below information represents the best possible medication history: Yes Medication history completed by: ED Pharmacist Darren Robert RPh Source of history: Patient: Reliability of source: Appears reliable, clearly identified: Medication name, Medication dose, Medication route, Medication frequency, Timing of last dose, and Indications and Pharmacy records: [facility] Medication nonadherence identified: No barriers noted Preferred outpatient pharmacy: [id number] [place] [address] - [address] [facility] [phone] [id number] Allergies: Codeine Intolerance Iv Contrast [Iodine] Vomiting Primatene Mist [Epi* Vomiting Prior to Admission Medications Prescriptions Last Dose Informant Patient Reported? Taking? HYDROcodone-Acetaminophen (NORCO) 7.5-325 mg per tablet Yes No Sig: Take 1 tablet by mouth every 6 hours as needed for pain. amLODIPine (NORVASC) 10 mg tablet 01/25/2025 No Yes Sig: Take 1 tablet by mouth once daily. atorvastatin (LIPITOR) 40 mg tablet 01/24/2025 No Yes Sig: Take 1 tablet by mouth daily at bedtime. clopidogrel (PLAVIX) 75 mg tablet 01/25/2025 No Yes Sig: Take 1 tablet by mouth once daily. gabapentin (NEURONTIN) 300 mg capsule 01/25/2025 Morning Yes Yes Sig: Take 600 mg by mouth two times a day. hydrALAZINE (APRESOLINE) 50 mg tablet 01/25/2025 Morning No Yes Sig: Take 1 tablet by mouth every 8 hours. insulin glargine (LANTUS SOLOSTAR U-100 INSULIN) 100 unit/mL (3 mL) 01/24/2025 Yes Yes Sig: Inject 15 Units subcutaneously daily at bedtime. lisinopril (ZESTRIL) 40 mg tablet 01/25/2025 No Yes Sig: Take 1 tablet by mouth once daily. metoprolol tartrate, short acting, (LOPRESSOR) 50 mg tablet 01/25/2025 Yes Yes Sig: Take 50 mg by mouth two times a day. Facility-Administered Medications: None Darren Robert RPh 01/25/2025[facility]04-02-2025 NoteHNO ID: [id number] Author: SHON CARSON DO Service: General Internal Medicine Author Type: Physician Type: Progress Notes Filed: 01/19/2025 13:15 Note Text: DEPARTMENT OF HOSPITAL MEDICINE PROGRESS NOTE SERVICE DATE: 01/19/2025 SERVICE TIME: 1:12 PM Hospital Medicine/Primary Attending: Shon Carson DO PRIMARY CARE PHYSICIAN: Clifford Sarmiento DO Readmission: Highest Readmission Risk Score: 14 Subjective INTERVAL HPI: Pleasant 54 yr old F who presented to ED with elevated blood pressure at home Nephrology was consulted Found to have renal artery stenosis Underwent R renal artery stent on 01/18 Sitting in bed Mitchell in place for retention Feels better Current Facility-Administered Medications Medication Dose Route Frequency NaCl 0.9% iv flush bag 20 mL INTRAVENOUS PRN heparin 5,000 Units injection 5,000 Units SUBCUTANEOUS q 12 H amLODIPine 10 mg tab(s) (NORVASC) 10 mg ORAL DAILY hydrALAZINE 20 mg tab(s) (APRESOLINE) 20 mg ORAL TID PRN lisinopril 40 mg tab(s) (ZESTRIL) 40 mg ORAL DAILY dextrose 40 % 15 g 15 g ORAL PRN Or glucagon 1 mg injection 1 mg INTRAMUSCULAR PRN Or dextrose 10% iv bolus 12.5 g INTRAVENOUS PRN insulin lispro injection (rapid acting) (ADMElog) SUBCUTANEOUS w MEALS insulin lispro injection (rapid acting) (ADMElog) SUBCUTANEOUS AT BEDTIME metoprolol tartrate (short acting) 50 mg tab(s) (LOPRESSOR) 50 mg ORAL BID insulin glargine 15 Units pen (long acting) 15 Units SUBCUTANEOUS AT BEDTIME gabapentin 600 mg cap(s) (NEURONTIN) 600 mg ORAL BID HYDROcodone 5 mg - acetaminophen 325 mg tablet (NORCO) 1 tablet ORAL q 6 H PRN ondansetron (PF) 4 mg injection (ZOFRAN) 4 mg INTRAVENOUS q 6 H PRN nicotine 21 mg/24 hr 1 Patch (NICODERM) 1 Patch TRANSDERMAL DAILY And nicotine -- REMOVE patch OTHER DAILY And nicotine - verify patch OTHER q 8 H nicotine polacrilex 2 mg gum (NICORETTE) 2 mg ORAL q 2 H PRN LORazepam 0.5 mg tab(s) (ATIVAN) 0.5 mg ORAL TID PRN atorvastatin 40 mg tab(s) (LIPITOR) 40 mg ORAL AT BEDTIME hydrALAZINE 50 mg tab(s) (APRESOLINE) 50 mg ORAL q 8 H clopidogrel 75 mg tab(s) (PLAVIX) 75 mg ORAL DAILY HYDROmorphone 0.4 mg injection (DILAUDID) 0.4 mg INTRAVENOUS q 4 H PRN Objective PHYSICAL EXAM: BP 128/67 Pulse 65 Temp (Src) 98.2 (Oral) Resp 18 Ht 5' 8 (1.73m) Wt 254 lb 3.1 oz (115.3kg) SpO2 95% LMP 10/21/2011 BMI 38.66 kg/(m2). O2 Therapy: Room Air Physical Exam Performed Physical Exam Constitutional: General: She is not in acute distress. Appearance: She is obese. Eyes: Conjunctiva/sclera: Conjunctivae normal. Pulmonary: Effort: Pulmonary effort is normal. No respiratory distress. Neurological: Mental Status: She is alert. Psychiatric: Mood and Affect: Mood normal. Behavior: Behavior normal. Lines, Drains, and Airways Line Duration Peripheral 01/17/25 1734 Right Hand 24 Gauge 1 day Drain Duration Indwelling Urinary Catheter 01/18/25 1629 [facility] Mitchell 16 Fr <1 day Patient does not currently have any lines, drains or airways. DATA: Diagnostic tests reviewed for today's visit: Most recent labs Most recent imaging CBC, Coags, BMP, Mg, Phos Recent Labs 01/19/25 0641 01/18/25 1455 01/18/25 0426 WBC 9.10 -- 12.46* HB 11.2* -- 8.7* HCT 34.1* -- 29.3* PLT 130* -- 692* NA 136 132* 139 K 4.9 5.7* 4.8 CHLOR 102 103 103 CO2 26 23 26 BUN 30* 25 54* CREAT 1.12* 1.21* 3.76* GLUC 171* 260* 68* CA 8.8 8.9 9.6 Assessment/Plan DATA: Recent Labs 01/19/25 1136 01/19/25 0556 01/18/25 2106 01/18/25 1726 01/18/25 1259 PCGLUCOSE 190* 170* 367* 325* 211* LABORATORY TESTS: CBC: Recent Labs 01/19/25 0641 01/18/25 0426 01/16/25 0338 WBC 9.10 12.46* 8.07 HB 11.2* 8.7* 12.7 PLT 130* 692* 127* MCV 93.2 91.8 91.4 NEUTP 54.7 60.9 -- ABSNEUT 4.97 7.58* -- LYMPHP 32.5 24.0 -- EODINP 2.5 3.5 -- CHEM: Recent Labs 01/19/25 0641 01/18/25 1455 01/18/25 0426 01/16/25 0338 01/15/25 0712 01/14/25 0432 01/13/25 0138 NA 136 132* 139 < > 133* 138 135* K 4.9 5.7* 4.8 < > 4.7 4.6 3.9 CA 8.8 8.9 9.6 < > 9.3 9.0 8.6 MG -- -- -- -- -- 2.0 1.7 P -- -- -- -- 3.9 4.1 -- ANION 8 6 10 < > 6 6 7 CHLOR 102 103 103 < > 104 105 104 CO2 26 23 26 < > 23 27 24 GLUC 171* 260* 68* < > 234* 157* 181* BUN 30* 25 54* < > 20 20 21 CREAT 1.12* 1.21* 3.76* < > 0.99* 1.05* 0.92 < > = values in this interval not displayed. HEPATIC: Recent Labs 01/16/2533701/15/25 0712 ALT 12* 14 AST 19 18 TBILI 0.4 0.4 ALKPHOS 77 81 ALB 2.8* 3.1* TPROT 6.8 7.5 URINALYSIS: Recent Labs 01/19/25 1141 SPGR 1.010 UBACTERIA Few* LEUKEST 3+* UWBC >25 /HPF* URBC 3-5 /HPF* UHB Trace* UPROT Negative UGLUC Negative UKET Negative COAG: No results for input(s): APTT, INR in the last 168 hours. CARDIAC: No results for input(s): CKMB, CKMBP, TROPT, PBNP in the last 168 hours. Urine Culture: P (more content not included)...[facility]04-02-2025 NoteHNO ID: [id number] Author: ONEL HARRELL MD Service: Nephrology Author Type: Physician Type: Progress Notes Filed: 01/19/2025 11:08 Note Text: CONSULT PROGRESS NOTE NEPHROLOGY SERVICE SERVICE DATE: 01/19/2025 SERVICE TIME: 11:05 AM Subjective INTERVAL HISTORY: Feels better today. Nonoliguric with Mitchell catheter. MEDICATIONS: Current Facility-Administered Medications Medication Dose Route Frequency NaCl 0.9% iv flush bag 20 mL INTRAVENOUS PRN heparin 5,000 Units injection 5,000 Units SUBCUTANEOUS q 12 H amLODIPine 10 mg tab(s) (NORVASC) 10 mg ORAL DAILY hydrALAZINE 20 mg tab(s) (APRESOLINE) 20 mg ORAL TID PRN lisinopril 40 mg tab(s) (ZESTRIL) 40 mg ORAL DAILY dextrose 40 % 15 g 15 g ORAL PRN Or glucagon 1 mg injection 1 mg INTRAMUSCULAR PRN Or dextrose 10% iv bolus 12.5 g INTRAVENOUS PRN insulin lispro injection (rapid acting) (ADMElog) SUBCUTANEOUS w MEALS insulin lispro injection (rapid acting) (ADMElog) SUBCUTANEOUS AT BEDTIME metoprolol tartrate (short acting) 50 mg tab(s) (LOPRESSOR) 50 mg ORAL BID insulin glargine 15 Units pen (long acting) 15 Units SUBCUTANEOUS AT BEDTIME gabapentin 600 mg cap(s) (NEURONTIN) 600 mg ORAL BID HYDROcodone 5 mg - acetaminophen 325 mg tablet (NORCO) 1 tablet ORAL q 6 H PRN ondansetron (PF) 4 mg injection (ZOFRAN) 4 mg INTRAVENOUS q 6 H PRN nicotine 21 mg/24 hr 1 Patch (NICODERM) 1 Patch TRANSDERMAL DAILY And nicotine -- REMOVE patch OTHER DAILY And nicotine - verify patch OTHER q 8 H nicotine polacrilex 2 mg gum (NICORETTE) 2 mg ORAL q 2 H PRN LORazepam 0.5 mg tab(s) (ATIVAN) 0.5 mg ORAL TID PRN atorvastatin 40 mg tab(s) (LIPITOR) 40 mg ORAL AT BEDTIME hydrALAZINE 50 mg tab(s) (APRESOLINE) 50 mg ORAL q 8 H clopidogrel 75 mg tab(s) (PLAVIX) 75 mg ORAL DAILY HYDROmorphone 0.4 mg injection (DILAUDID) 0.4 mg INTRAVENOUS q 4 H PRN Objective PHYSICAL EXAM: BP 136/67 Pulse 75 Temp 36.7 ?C (98 ?F) (Oral) Resp 14 Ht 172.7 cm (5' 8) Wt 115.3 kg (254 lb 3.1 oz) LMP 10/21/2011 SpO2 95% BMI 38.65 kg/m? Intake/Output Summary (Last 24 hours) at 01/19/2025 1105 Last data filed at 01/19/2025 0705 Gross per 24 hour Intake 1343 ml Output 2225 ml Net -882 ml Patient resting comfortably. Lungs are clear anteriorly bilaterally Cardiovascular with normal S1-S2 without friction rub Abdomen soft and nontender Lower extremities without edema. DATA: Diagnostic tests reviewed for today's visit: Most recent labs and imaging results. Recent Labs 01/19/25 0641 01/18/25 1455 01/18/256 01/16/25 0338 01/15/25 0712 01/14/25 0432 01/13/25 0138 NA 136 132* 139 135* 133* 138 135* K 4.9 5.7* 4.8 4.8 4.7 4.6 3.9 CHLOR 102 103 103 103 104 105 104 CO2 26 23 26 24 23 27 24 BUN 30* 25 54* 24 20 20 21 CREAT 1.12* 1.21* 3.76* 1.18* 0.99* 1.05* 0.92 GLUC 171* 260* 68* 242* 234* 157* 181* ANION 8 6 10 8 6 6 7 CA 8.8 8.9 9.6 9.0 9.3 9.0 8.6 P -- -- -- -- 3.9 4.1 -- MG -- -- -- -- -- 2.0 1.7 Recent Labs 01/19/25 0641 01/18/256 01/16/25 0338 WBC 9.10 12.46* 8.07 HB 11.2* 8.7* 12.7 HCT 34.1* 29.3* 38.5 PLT 130* 692* 127* Recent Labs 01/19/25640 HB 11.2* Recent Labs 01/19/25 0641 01/18/25 0426 01/16/25 0338 01/15/25 0712 ALKPHOS -- -- 77 81 CA 8.8 < > 9.0 9.3 P -- -- -- 3.9 ALB -- -- 2.8* 3.1* < > = values in this interval not displayed. No results for input(s): BUNRAT, BUNPR, BUNPO in the last 168 hours. No results for input(s): HEPSABQ in the last 1440 hours. Invalid input(s): HEPSABG Assessment/Plan 1. Hypertensive urgency 2. Right renal artery stenosis 3. BREONNA due to urinary retention PLAN 1. Successful right renal artery stenting yesterday. Blood pressure controlled on current regimen. Continue the same at discharge. 2. Urinary retention resolved with Mitchell. BREONNA due to the latter has improved. Creatinine closing in on her prior baseline. She does have a history of frequent UTI,, admission at [facility] and BREONNA as a result of these issues. Never required dialysis. Suspect she has chronic nephrosclerosis both from hypertension and these infectious processes. Will need outpatient follow-up with nephrology at the time of discharge. 3. Will need voiding trial to make sure there was no continued retention. If present recommend consulting urology. 4. Check UA since she continues to complain of low back pain. Thank you SIGNATURE: Onel Harrell MD PATIENT NAME: Nadia Anglin DATE: January 19, 2025 TIME: 11:05 [facility]04-01-2025 NoteHNO ID: [id number] Author: SIENA COATS RDMS Service: Radiology Author Type: Technologist Type: Progress Notes Filed: 01/18/2025 18:12 Note Text: Radiology Service Progress Note PATIENT NAME: Nadia Anglin DATE OF SERVICE: January 18, 2025 TIME: 6:12 PM PATIENT IDENTITY VERIFICATION COMPLETED USING TWO (2) IDENTIFIERS: Name and Date of confirmed by patient verbally and Name and Date of confirmed by identification band. FALL SCREENING: Has the patient had 2 falls in the last year or 1 fall with injury or currently using an Ambulatory Assistive Device (Walker, Cane, Wheelchair, Crutches, etc.)? Inpatient: Screened on floor PATIENT GENDER DATA: Assigned female at . status: : No status: N/A PATIENT RELEVANT IMPLANT DATA REVIEWED: Not Applicable PATIENT PRESENTS WITH AN IMPLANTABLE OR ATTACHED CERTIFIED MEDICAL AIDE: No RADIOLOGY DEPARTMENT: Ultrasound PERIPHERAL IV DATA: Not applicable SIGNED BY: Siena Coats RDMS January 18, 2025 6:12 [facility] NoteHNO ID: [id number] Author: ONEL HARRELL MD Service: Nephrology Author Type: Physician Type: Progress Notes Filed: 01/18/2025 14:51 Note Text: Patient in intense low back pain post-op We will order mitchell to help her void her bladder - unable to use bed simon Follow up on renal US Recommend contacting vascular team to assess pain and decide if imaging is needed to check for post-op complications [facility]04-01-2025 NoteHNO ID: [id number] Author: ONEL HARRELL MD Service: Nephrology Author Type: Physician Type: Progress Notes Filed: 01/18/2025 14:31 Note Text: CONSULT PROGRESS NOTE NEPHROLOGY SERVICE SERVICE DATE: 01/18/2025 SERVICE TIME: 2:21 PM Subjective INTERVAL HISTORY: S/p angiogram and right renal artery stenting today. MEDICATIONS: Current Facility-Administered Medications Medication Dose Route Frequency NaCl 0.9% iv flush bag 20 mL INTRAVENOUS PRN heparin 5,000 Units injection 5,000 Units SUBCUTANEOUS q 12 H amLODIPine 10 mg tab(s) (NORVASC) 10 mg ORAL DAILY hydrALAZINE 20 mg tab(s) (APRESOLINE) 20 mg ORAL TID PRN lisinopril 40 mg tab(s) (ZESTRIL) 40 mg ORAL DAILY dextrose 40 % 15 g 15 g ORAL PRN Or glucagon 1 mg injection 1 mg INTRAMUSCULAR PRN Or dextrose 10% iv bolus 12.5 g INTRAVENOUS PRN insulin lispro injection (rapid acting) (ADMElog) SUBCUTANEOUS w MEALS insulin lispro injection (rapid acting) (ADMElog) SUBCUTANEOUS AT BEDTIME metoprolol tartrate (short acting) 50 mg tab(s) (LOPRESSOR) 50 mg ORAL BID insulin glargine 15 Units pen (long acting) 15 Units SUBCUTANEOUS AT BEDTIME gabapentin 600 mg cap(s) (NEURONTIN) 600 mg ORAL BID hydroCHLOROthiazide 25 mg tab(s) 25 mg ORAL DAILY HYDROcodone 5 mg - acetaminophen 325 mg tablet (NORCO) 1 tablet ORAL q 6 H PRN ondansetron (PF) 4 mg injection (ZOFRAN) 4 mg INTRAVENOUS q 6 H PRN nicotine 21 mg/24 hr 1 Patch (NICODERM) 1 Patch TRANSDERMAL DAILY And nicotine -- REMOVE patch OTHER DAILY And nicotine - verify patch OTHER q 8 H nicotine polacrilex 2 mg gum (NICORETTE) 2 mg ORAL q 2 H PRN LORazepam 0.5 mg tab(s) (ATIVAN) 0.5 mg ORAL TID PRN atorvastatin 40 mg tab(s) (LIPITOR) 40 mg ORAL AT BEDTIME hydrALAZINE 50 mg tab(s) (APRESOLINE) 50 mg ORAL q 8 H clopidogrel 75 mg tab(s) (PLAVIX) 75 mg ORAL DAILY Objective PHYSICAL EXAM: BP 141/61 Pulse 68 Temp 36.7 ?C (98.1 ?F) (Oral) Resp 18 Ht 172.7 cm (5' 8) Wt 114.2 kg (251 lb 12.4 oz) LMP 10/21/2011 SpO2 95% BMI 38.28 kg/m? Intake/Output Summary (Last 24 hours) at 01/18/2025 1421 Last data filed at 01/18/2025 1330 Gross per 24 hour Intake 2427 ml Output 1125 ml Net 1302 ml Patient resting comfortably. Lungs are clear anteriorly bilaterally Cardiovascular with normal S1-S2 without friction rub Abdomen soft and nontender Lower extremities without edema. DATA: Diagnostic tests reviewed for today's visit: Most recent labs and imaging results. Recent Labs 01/18/25 0426 01/16/25 0338 01/15/25 0712 01/14/25 0432 01/13/25 0138 NA 139 135* 133* 138 135* K 4.8 4.8 4.7 4.6 3.9 CHLOR 103 103 104 105 104 CO2 26 24 23 27 24 BUN 54* 24 20 20 21 CREAT 3.76* 1.18* 0.99* 1.05* 0.92 GLUC 68* 242* 234* 157* 181* ANION 10 8 6 6 7 CA 9.6 9.0 9.3 9.0 8.6 P -- -- 3.9 4.1 -- MG -- -- -- 2.0 1.7 Recent Labs 01/18/25 0426 01/16/25 0338 01/15/25 0712 WBC 12.46* 8.07 7.70 HB 8.7* 12.7 12.4 HCT 29.3* 38.5 37.6 PLT 692* 127* 120* Recent Labs 01/18/25 0426 HB 8.7* Recent Labs 01/18/25 0426 01/16/25 0338 01/15/25 0712 ALKPHOS -- 77 81 CA 9.6 9.0 9.3 P -- -- 3.9 ALB -- 2.8* 3.1* No results for input(s): BUNRAT, BUNPR, BUNPO in the last 168 hours. No results for input(s): HEPSABQ in the last 1440 hours. Invalid input(s): HEPSABG Assessment/Plan 1. Hypertensive urgency 2. Right renal artery stenosis 3. BREONNA due to urinary retention PLAN 1. Bp controlled on current regimen 2. S/p angiogram and right renal artery stenting today 3. For some reason the am labs are discordant in relation to her prior trends. Reviewed afternoon events. She was retaining urine. She was straight cath'd. Will bladder scan again. If retention persists, needs mitchell and urology consult. Continue IVF. Check renal US. 4. She received IV bicarb and LR prior to contrast exposure 5. Encourage PO intake Thanks SIGNATURE: Onel Harrell MD PATIENT NAME: Nadia Anglin DATE: January 18, 2025 TIME: 2:21 [facility] NoteHNO ID: [id number] Author: SHON CARSON DO Service: General Internal Medicine Author Type: Physician Type: Progress Notes Filed: 01/18/2025 18:55 Note Text: DEPARTMENT OF HOSPITAL MEDICINE PROGRESS NOTE SERVICE DATE: 01/18/2025 SERVICE TIME: 1:48 PM Hospital Medicine/Primary Attending: Shon Carson DO PRIMARY CARE PHYSICIAN: Clifford Sarmiento DO Readmission: Highest Readmission Risk Score: 14 Subjective INTERVAL HPI: Pleasant 54 yr old F who presented to ED with elevated blood pressure at home Nephrology was consulted Found to have renal artery stenosis Underwent R renal artery stent on 01/18 Lying in bed Complains of severe low back pain across low back post-procedure Current Facility-Administered Medications Medication Dose Route Frequency NaCl 0.9% iv flush bag 20 mL INTRAVENOUS PRN heparin 5,000 Units injection 5,000 Units SUBCUTANEOUS q 12 H amLODIPine 10 mg tab(s) (NORVASC) 10 mg ORAL DAILY hydrALAZINE 20 mg tab(s) (APRESOLINE) 20 mg ORAL TID PRN lisinopril 40 mg tab(s) (ZESTRIL) 40 mg ORAL DAILY dextrose 40 % 15 g 15 g ORAL PRN Or glucagon 1 mg injection 1 mg INTRAMUSCULAR PRN Or dextrose 10% iv bolus 12.5 g INTRAVENOUS PRN insulin lispro injection (rapid acting) (ADMElog) SUBCUTANEOUS w MEALS insulin lispro injection (rapid acting) (ADMElog) SUBCUTANEOUS AT BEDTIME metoprolol tartrate (short acting) 50 mg tab(s) (LOPRESSOR) 50 mg ORAL BID insulin glargine 15 Units pen (long acting) 15 Units SUBCUTANEOUS AT BEDTIME gabapentin 600 mg cap(s) (NEURONTIN) 600 mg ORAL BID hydroCHLOROthiazide 25 mg tab(s) 25 mg ORAL DAILY HYDROcodone 5 mg - acetaminophen 325 mg tablet (NORCO) 1 tablet ORAL q 6 H PRN ondansetron (PF) 4 mg injection (ZOFRAN) 4 mg INTRAVENOUS q 6 H PRN nicotine 21 mg/24 hr 1 Patch (NICODERM) 1 Patch TRANSDERMAL DAILY And nicotine -- REMOVE patch OTHER DAILY And nicotine - verify patch OTHER q 8 H nicotine polacrilex 2 mg gum (NICORETTE) 2 mg ORAL q 2 H PRN LORazepam 0.5 mg tab(s) (ATIVAN) 0.5 mg ORAL TID PRN atorvastatin 40 mg tab(s) (LIPITOR) 40 mg ORAL AT BEDTIME hydrALAZINE 50 mg tab(s) (APRESOLINE) 50 mg ORAL q 8 H lactated ringers iv infusion 75 mL/hr INTRAVENOUS CONTINUOUS clopidogrel 75 mg tab(s) (PLAVIX) 75 mg ORAL DAILY sodium bicarbonate 150 mEq in D5W 1,000 mL iv infusion 150 mEq INTRAVENOUS CONTINUOUS lactated ringers iv infusion 5-30 mL/hr INTRAVENOUS CONTINUOUS fentaNYL 50 mcg/mL 25-50 mcg injection (SUBLIMAZE) 25-50 mcg INTRAVENOUS q 10 MIN PRN ondansetron 4 mg tab(s) (ZOFRAN) 4 mg ORAL q 6 H PRN Or ondansetron (PF) 4 mg injection (ZOFRAN) 4 mg INTRAVENOUS q 6 H PRN Objective PHYSICAL EXAM: BP 139/64 Pulse 67 Temp (Src) 98.5 (Temporal) Resp 16 Ht 5' 8 (1.73m) Wt 251 lb 12.4 oz (114.2kg) SpO2 99% LMP 10/21/2011 BMI 38.29 kg/(m2). O2 Therapy: Nasal Cannula, Liters (Numeric Only): 3 Physical Exam Performed Physical Exam Constitutional: General: She is not in acute distress. Appearance: She is obese. She is ill-appearing. HENT: Mouth/Throat: Mouth: Mucous membranes are dry. Eyes: Conjunctiva/sclera: Conjunctivae normal. Cardiovascular: Rate and Rhythm: Normal rate and regular rhythm. Pulmonary: Effort: Pulmonary effort is normal. No respiratory distress. Breath sounds: No wheezing. Neurological: Mental Status: She is alert. Psychiatric: Mood and Affect: Mood normal. Behavior: Behavior normal. Lines, Drains, and Airways Line Duration Peripheral 01/17/25 1734 Right Hand 24 Gauge <1 day Patient does not currently have any lines, drains or airways. DATA: Diagnostic tests reviewed for today's visit: Most recent labs Most recent imaging CBC, Coags, BMP, Mg, Phos Recent Labs 01/18/25 1455 01/18/25 0426 01/16/25 0338 WBC -- 12.46* 8.07 HB -- 8.7* 12.7 HCT -- 29.3* 38.5 PLT -- 692* 127* NA 132* 139 135* K 5.7* 4.8 4.8 CHLOR 103 103 103 CO2 23 26 24 BUN 25 54* 24 CREAT 1.21* 3.76* 1.18* GLUC 260* 68* 242* CA 8.9 9.6 9.0 Assessment/Plan DATA: Recent Labs 01/18/25 1259 01/18/25 0542 01/17/25 1657 01/17/25 1130 01/17/25 0620 PCGLUCOSE 211* 155* 168* 300* 229* LABORATORY TESTS: CBC: Recent Labs 01/18/25 0426 01/16/25 0338 01/15/25 0712 WBC 12.46* 8.07 7.70 HB 8.7* 12.7 12.4 PLT 692* 127* 120* MCV 91.8 91.4 90.0 NEUTP 60.9 -- -- ABSNEUT 7.58* -- -- LYMPHP 24.0 -- -- EODINP 3.5 -- -- CHEM: Recent Labs 01/18/25 0426 01/16/25 0338 01/15/25 0712 01/14/25 0432 01/13/25 0138 NA 139 135* 133* 138 135* K 4.8 4.8 4.7 4.6 3.9 CA 9.6 9.0 9.3 9.0 8.6 MG -- -- -- 2.0 1.7 P -- -- 3.9 4.1 -- ANION 10 8 6 6 7 CHLOR 103 103 104 105 104 CO2 26 24 23 27 24 GLUC 68* 242* 234* 157* 181* BUN 54* 24 20 20 21 CREAT 3.76* 1.18* 0.99* 1.05* 0.92 HEPATIC: Recent Labs 01/16/25 0338 01/15/25 0712 ALT 12* 14 AST 19 18 TBILI 0.4 0.4 ALKPHOS 77 81 ALB 2.8* 3.1* TPROT 6.8 7.5 U (more content not included)...[facility]04-01-2025 NoteHNO ID: [id number] Author: SHON CARSON DO Service: General Internal Medicine Author Type: Physician Type: Progress Notes Filed: 01/18/2025 13:48 Note Text: Documentation Query Please clarify the diagnosis associated with the clinical indicators Thrombocytopenia This document will become part of the patient's medical record.[facility]04-01-2025 NoteHNO ID: [id number] Author: SURYA EDWARD, ROC Service: Nursing Author Type: Registered Nurse Type: Nursing Progress Note Filed: 01/18/2025 11:35 Note Text: Bilateral pedal and posterior tibial pulse audible with doppler.[facility]03-31-2025 NoteHNO ID: [id number] Author: ALAN LABOY MD Service: Hospital Medicine Author Type: Physician Type: Progress Notes Filed: 01/17/2025 23:54 Note Text: Transfer of care: Patient presented for hypertensive urgency. Has been having blood pressure medications titrated by nephrology. Patient had a renal artery ultrasound and plans for angiogram with stent placement on January 18, 2025. Patient is describing a significant bandlike headache that occurs approximately 8 times per day. Each episode can last anywhere from 20 minutes to 1 hour. Spontaneous onset with no aura noted. Patient also states that this is associated with a significant amount of nausea. No previous history of migraines and her patient's symptoms of headache started approximately 3 months ago. Discussed that we will treat the patient with a trial of Imitrex to see if this works is the patient's headaches have been refractory to Tylenol, Excedrin, ibuprofen and Fioricet. Discussed that if the patient's symptoms do not improve status post renal artery stenting and adequate blood pressure control, can consider neurological evaluation for headaches that are intractable and likely migraines. Physical exam: Regular rate and rhythm, clear to auscultation bilaterally, alert and oriented x 4, patient has capacity #Hypertensive urgency - Most recent blood pressure 150/82 - Patient continues to endorse headaches however these should have resolved at the patient's current blood pressure - Significant renal artery stenosis - Plans for angiogram with likely stent placement on January 18, 2025 - Norvasc 10 mg p.o. daily - Hydralazine 50 mg p.o. every 8 hours - Hydrochlorothiazide 25 mg p.o. daily - Lisinopril 40 mg p.o. daily - Lopressor 50 mg p.o. twice daily - Nephrology on board, recommendations appreciated - Vascular surgery on board, recommendations appreciated #Intractable headaches versus migraines - Trial of sumatriptan 50 mg p.o. x 1 - Consider neurological workup if the patient continues to have persistent headaches despite intervention from nephrology and vascular surgery #Anxiety - Xanax 0.5 mg p.o. 3 times daily as needed #Hyperlipidemia - Continue Lipitor 40 mg p.o. nightly #Neuropathy - Continue gabapentin 600 mg p.o. twice daily #DVT prophylaxis - Continue heparin 5000 units subcutaneously every 12 hours #Diabetes - Continue Lantus 15 units subcutaneously nightly - Low-dose insulin sliding scale with hypoglycemic protocol - Blood sugar checks per protocol #Nicotine dependence - Continue 21 mg nicotine replacement therapy Disposition: Home with no needs when cleared by nephrology and vascular surgery [facility]03-31-2025 NoteHNO ID: [id number] Author: ONEL HARRELL MD Service: Nephrology Author Type: Physician Type: Progress Notes Filed: 01/17/2025 16:07 Note Text: CONSULT PROGRESS NOTE NEPHROLOGY SERVICE SERVICE DATE: 01/17/2025 SERVICE TIME: 4:04 PM Subjective INTERVAL HISTORY: C/o headache. MEDICATIONS: Current Facility-Administered Medications Medication Dose Route Frequency NaCl 0.9% iv flush bag 20 mL INTRAVENOUS PRN heparin 5,000 Units injection 5,000 Units SUBCUTANEOUS q 12 H amLODIPine 10 mg tab(s) (NORVASC) 10 mg ORAL DAILY hydrALAZINE 20 mg tab(s) (APRESOLINE) 20 mg ORAL TID PRN lisinopril 40 mg tab(s) (ZESTRIL) 40 mg ORAL DAILY dextrose 40 % 15 g 15 g ORAL PRN Or glucagon 1 mg injection 1 mg INTRAMUSCULAR PRN Or dextrose 10% iv bolus 12.5 g INTRAVENOUS PRN insulin lispro injection (rapid acting) (ADMElog) SUBCUTANEOUS w MEALS insulin lispro injection (rapid acting) (ADMElog) SUBCUTANEOUS AT BEDTIME metoprolol tartrate (short acting) 50 mg tab(s) (LOPRESSOR) 50 mg ORAL BID insulin glargine 15 Units pen (long acting) 15 Units SUBCUTANEOUS AT BEDTIME gabapentin 600 mg cap(s) (NEURONTIN) 600 mg ORAL BID hydroCHLOROthiazide 25 mg tab(s) 25 mg ORAL DAILY HYDROcodone 5 mg - acetaminophen 325 mg tablet (NORCO) 1 tablet ORAL q 6 H PRN ondansetron (PF) 4 mg injection (ZOFRAN) 4 mg INTRAVENOUS q 6 H PRN nicotine 21 mg/24 hr 1 Patch (NICODERM) 1 Patch TRANSDERMAL DAILY And nicotine -- REMOVE patch OTHER DAILY And nicotine - verify patch OTHER q 8 H nicotine polacrilex 2 mg gum (NICORETTE) 2 mg ORAL q 2 H PRN LORazepam 0.5 mg tab(s) (ATIVAN) 0.5 mg ORAL TID PRN atorvastatin 40 mg tab(s) (LIPITOR) 40 mg ORAL AT BEDTIME hydrALAZINE 50 mg tab(s) (APRESOLINE) 50 mg ORAL q 8 H lactated ringers iv infusion 75 mL/hr INTRAVENOUS CONTINUOUS Objective PHYSICAL EXAM: BP 141/69 Pulse 63 Temp 36.9 ?C (98.5 ?F) (Oral) Resp 16 Ht 172.7 cm (5' 8) Wt 114.3 kg (252 lb) LMP 10/21/2011 SpO2 95% BMI 38.32 kg/m? Intake/Output Summary (Last 24 hours) at 01/17/2025 1604 Last data filed at 01/17/2025 1437 Gross per 24 hour Intake 460 ml Output -- Net 460 ml Patient resting comfortably. Lungs are clear anteriorly bilaterally Cardiovascular with normal S1-S2 without friction rub Abdomen soft and nontender Lower extremities without edema. DATA: Diagnostic tests reviewed for today's visit: Most recent labs and imaging results. Recent Labs 01/16/2533701/15/25 0712 01/14/25 0432 01/13/25 0138 01/11/25 1201 NA 135* 133* 138 135* 139 K 4.8 4.7 4.6 3.9 4.4 CHLOR 103 104 105 104 107 CO2 24 23 27 24 26 BUN 24 20 20 21 15 CREAT 1.18* 0.99* 1.05* 0.92 0.85 GLUC 242* 234* 157* 181* 125* ANION 8 6 6 7 6 CA 9.0 9.3 9.0 8.6 9.4 P -- 3.9 4.1 -- -- MG -- -- 2.0 1.7 1.8 Recent Labs 01/16/2533701/15/25 0712 01/14/25 0431 WBC 8.07 7.70 7.35 HB 12.7 12.4 12.1 HCT 38.5 37.6 37.1 PLT 127* 120* 121* Recent Labs 01/16/25337 HB 12.7 Recent Labs 01/16/258 01/15/25 0712 ALKPHOS 77 81 CA 9.0 9.3 P -- 3.9 ALB 2.8* 3.1* No results for input(s): BUNRAT, BUNPR, BUNPO in the last 168 hours. No results for input(s): HEPSABQ in the last 1440 hours. Invalid input(s): HEPSABG Assessment/Plan 1. Hypertensive urgency 2. Right renal artery stenosis PLAN 1. Bp for the most part controlled but intermittent spikes still occurring. 2. Patient due for renal artery angiogram and stent tomorrow 3. GFR dropped due to intensification of RASi and diuretics, likely unmasking hypertensive nephropathy. 4. Anticipating contrast exposure tomorrow - start LR at 75 cc/hr 5. AM labs Thanks SIGNATURE: Onel Harrell MD PATIENT NAME: Nadia Anglin DATE: January 17, 2025 TIME: 4:04 [facility]03-31-2025 NoteHNO ID: [id number] Author: RASHIDA LOAIZA RN Service: Care Management Author Type: Registered Nurse Type: Care Mgt Progress Note Filed: 01/17/2025 10:20 Note Text: CARE MANAGEMENT PROGRESS NOTE SERVICE DATE: 01/17/2025 SERVICE TIME: 10:15 AM LOS: 3 days Chart reviewed. Pt admitted with headache with HTN. Renal US +, nephrology ans vascular surgery consulted. Pending renal angiogram and possible stenting on 01/18. Per vascular, if stented then will need to add Plavix. Pt from home independently with boyfriend. Pt stated that she does not drive due to neuropathy, family transports pt. Pt stated that she has transportation on discharge. Pt uses cane, wheelchair, nebulizer, glucometer, and blood pressure machine; pt also has walker at home that she does not currently use. Pt lives in mobile home, has steps into home. Current discharge plan home with boyfriend. Will have transport. CM will follow for transitional discharge needs. SIGNATURE: Rashida Loaiza RN PATIENT NAME: Nadia Anglin DATE: January 17, 2025 TIME: 10:15 [facility]03-30-2025 NoteHNO ID: [id number] Author: GHASSAN RASMUSSEN MD Service: Nephrology Author Type: Physician Type: Progress Notes Filed: 01/16/2025 09:46 Note Text: CONSULT PROGRESS NOTE NEPHROLOGY SERVICE SERVICE DATE: 01/16/2025 SERVICE TIME: 9:44 AM INTERVAL HISTORY: Comfortable no acute event overnight, blood pressure improved MEDICATIONS: Current Facility-Administered Medications Medication Dose Route Frequency NaCl 0.9% iv flush bag 20 mL INTRAVENOUS PRN heparin 5,000 Units injection 5,000 Units SUBCUTANEOUS q 12 H amLODIPine 10 mg tab(s) (NORVASC) 10 mg ORAL DAILY hydrALAZINE 20 mg tab(s) (APRESOLINE) 20 mg ORAL TID PRN lisinopril 40 mg tab(s) (ZESTRIL) 40 mg ORAL DAILY dextrose 40 % 15 g 15 g ORAL PRN Or glucagon 1 mg injection 1 mg INTRAMUSCULAR PRN Or dextrose 10% iv bolus 12.5 g INTRAVENOUS PRN insulin lispro injection (rapid acting) (ADMElog) SUBCUTANEOUS w MEALS insulin lispro injection (rapid acting) (ADMElog) SUBCUTANEOUS AT BEDTIME metoprolol tartrate (short acting) 50 mg tab(s) (LOPRESSOR) 50 mg ORAL BID insulin glargine 15 Units pen (long acting) 15 Units SUBCUTANEOUS AT BEDTIME gabapentin 600 mg cap(s) (NEURONTIN) 600 mg ORAL BID hydroCHLOROthiazide 25 mg tab(s) 25 mg ORAL DAILY HYDROcodone 5 mg - acetaminophen 325 mg tablet (NORCO) 1 tablet ORAL q 6 H PRN ondansetron (PF) 4 mg injection (ZOFRAN) 4 mg INTRAVENOUS q 6 H PRN nicotine 21 mg/24 hr 1 Patch (NICODERM) 1 Patch TRANSDERMAL DAILY And nicotine -- REMOVE patch OTHER DAILY And nicotine - verify patch OTHER q 8 H nicotine polacrilex 2 mg gum (NICORETTE) 2 mg ORAL q 2 H PRN LORazepam 0.5 mg tab(s) (ATIVAN) 0.5 mg ORAL TID PRN atorvastatin 40 mg tab(s) (LIPITOR) 40 mg ORAL AT BEDTIME hydrALAZINE 50 mg tab(s) (APRESOLINE) 50 mg ORAL q 8 H Objective PHYSICAL EXAM: BP 154/70 Pulse 71 Temp 36.8 ?C (98.3 ?F) (Oral) Resp 12 Ht 172.7 cm (5' 8) Wt 114.3 kg (252 lb) LMP 10/21/2011 SpO2 97% BMI 38.32 kg/m? Intake/Output Summary (Last 24 hours) at 01/16/2025 0944 Last data filed at 01/15/2025 1236 Gross per 24 hour Intake 540 ml Output -- Net 540 ml GEN: Appear comfortable in NAD. Head: NC/AT; CV: RRR, no m/r/g. LUNGS: CTAB, no w/r/c. ABD: Soft, NT/ND, NBS, no masses : Deferred SKIN: Warm, well perfused. No skin rashes MSK: Normal gait. No deformities. EXT: No clubbing, cyanosis, or edema DATA: Diagnostic tests reviewed for today's visit: Most recent labs and imaging results. Recent Labs 01/16/258 01/15/25 0712 01/14/25 0432 01/13/25 0138 01/11/25 1201 NA 135* 133* 138 135* 139 K 4.8 4.7 4.6 3.9 4.4 CHLOR 103 104 105 104 107 CO2 24 23 27 24 26 BUN 24 20 20 21 15 CREAT 1.18* 0.99* 1.05* 0.92 0.85 GLUC 242* 234* 157* 181* 125* ANION 8 6 6 7 6 CA 9.0 9.3 9.0 8.6 9.4 P -- 3.9 4.1 -- -- MG -- -- 2.0 1.7 1.8 Recent Labs 01/16/2533701/15/25 0712 01/14/25 0431 WBC 8.07 7.70 7.35 HB 12.7 12.4 12.1 HCT 38.5 37.6 37.1 PLT 127* 120* 121* Recent Labs 01/16/25337 HB 12.7 Recent Labs 01/16/258 01/15/25 0712 ALKPHOS 77 81 CA 9.0 9.3 P -- 3.9 ALB 2.8* 3.1* No results for input(s): BUNRAT, BUNPR, BUNPO in the last 168 hours. No results for input(s): HEPSABQ in the last 1440 hours. Invalid input(s): HEPSABG Assessment/Plan 54 year old female who presents with . Assessment: Hypertensive urgency Right renal artery stenosis Hyponatremia PLAN Blood pressure improving currently on amlodipine, hydralazine, lisinopril, hydrochlorothiazide, metoprolol Mild hyponatremia, stable possibly related to thiazide Pending angiogram and possible stenting on Friday. Kidney function remained stable Continue to monitor renal panel daily Other protective measures for the kidney: Avoid nephrotoxic medications (NSAID's and iodinated IV contrast if possible, ..) Maintain MAP >65 at all times Transfuse for Hb < 7 Avoid hyperglycemia as able SIGNATURE: Ghassan Rasmussen MD PATIENT NAME: Nadia Anglin DATE: January 16, 2025 TIME: 9:44 [facility]03-29-2025 NoteHNO ID: [id number] Author: LOURDES ALBERTO MD Service: Hospital Medicine Author Type: Physician Type: Progress Notes Filed: 01/15/2025 10:49 Note Text: INPATIENT PROGRESS NOTE SERVICE DATE: 01/15/2025 HOSPITAL COURSE: Subjective CHIEF COMPLAINT: Uncontrolled hypertension INTERVAL HPI: Seen and examined. Still complaining of headache. No nausea or vomiting or fever or chills. Discussed with her about the renal angiogram which will happen on Friday. Current Outpatient Medications Medication Instructions albuterol HFA (PROAIR HFA) 90 mcg/actuation INHALATION inhaler 2 Puffs, INHALATION, EVERY 4 HOURS NEEDED gabapentin (NEURONTIN) 600 mg, 2 TIMES DAILY HYDROcodone-Acetaminophen (NORCO) 7.5-325 mg per tablet 1 tablet, EVERY 6 HOURS NEEDED LANTUS SOLOSTAR U-100 INSULIN 15 Units, AT BEDTIME lisinopril (ZESTRIL) 10 mg, ORAL, DAILY metoprolol tartrate (short acting) (LOPRESSOR) 50 mg, 2 TIMES DAILY Current Facility-Administered Medications Medication Dose Route Frequency NaCl 0.9% iv flush bag 20 mL INTRAVENOUS PRN heparin 5,000 Units injection 5,000 Units SUBCUTANEOUS q 12 H amLODIPine 10 mg tab(s) (NORVASC) 10 mg ORAL DAILY hydrALAZINE 20 mg tab(s) (APRESOLINE) 20 mg ORAL TID PRN lisinopril 40 mg tab(s) (ZESTRIL) 40 mg ORAL DAILY dextrose 40 % 15 g 15 g ORAL PRN Or glucagon 1 mg injection 1 mg INTRAMUSCULAR PRN Or dextrose 10% iv bolus 12.5 g INTRAVENOUS PRN insulin lispro injection (rapid acting) (ADMElog) SUBCUTANEOUS w MEALS insulin lispro injection (rapid acting) (ADMElog) SUBCUTANEOUS AT BEDTIME metoprolol tartrate (short acting) 50 mg tab(s) (LOPRESSOR) 50 mg ORAL BID insulin glargine 15 Units pen (long acting) 15 Units SUBCUTANEOUS AT BEDTIME gabapentin 600 mg cap(s) (NEURONTIN) 600 mg ORAL BID hydroCHLOROthiazide 25 mg tab(s) 25 mg ORAL DAILY HYDROcodone 5 mg - acetaminophen 325 mg tablet (NORCO) 1 tablet ORAL q 6 H PRN ondansetron (PF) 4 mg injection (ZOFRAN) 4 mg INTRAVENOUS q 6 H PRN nicotine 21 mg/24 hr 1 Patch (NICODERM) 1 Patch TRANSDERMAL DAILY And nicotine -- REMOVE patch OTHER DAILY And nicotine - verify patch OTHER q 8 H nicotine polacrilex 2 mg gum (NICORETTE) 2 mg ORAL q 2 H PRN LORazepam 0.5 mg tab(s) (ATIVAN) 0.5 mg ORAL TID PRN atorvastatin 40 mg tab(s) (LIPITOR) 40 mg ORAL AT BEDTIME hydrALAZINE 50 mg tab(s) (APRESOLINE) 50 mg ORAL q 8 H Objective Physical Exam Performed: General: Patient is alert and oriented x3 and is in no acute respiratory distress HEENT: Normal cephalic, atraumatic, PERRLA, TM's normal, Nose clear, Mouth normal Neck: Negative hepatojugular reflux or jugular venous distention, negative carotid bruit. Lungs: Clear to auscultation, no wheezing, rales, or rhonchi. Cardiac: Regular rhythm and rate, S1-S2 within normal limits, no murmurs, gallops were appreciated, no rubs. Abdomen: Soft, nontender, nondistended, no HSM detected, bowel sounds are active. Extremities: No edema, cyanosis, or clubbing. Skin: No rashes or breakdown. Musculoskeletal: normal MS exam, moves all extremities, DTR's normal Neurologic: Cranial nerves from II-XII intact grossly, no focal deficits. Glucose (mg/dL) Date Value 01/15/2025 234 Potassium (mmol/L) Date Value 01/15/2025 4.7 Sodium (mmol/L) Date Value 01/15/2025 133 Chloride (mmol/L) Date Value 01/15/2025 104 CO2 (mmol/L) Date Value 01/15/2025 23 Creatinine (mg/dL) Date Value 01/15/2025 0.99 BUN (mg/dL) Date Value 01/15/2025 20 Anion Gap (mmol/L) Date Value 01/15/2025 6 Calcium, Total (mg/dL) Date Value 01/15/2025 9.3 Estimated Creatinine Clearance: 84.2 mL/min (A) (based on SCr of 0.99 mg/dL (H)). CBC with diff: WBC 8.61 01/11/2025 RBC 4.50 01/11/2025 Hemoglobin 13.4 01/11/2025 Hematocrit 39.7 01/11/2025 MCV 88.2 01/11/2025 MCH 29.8 01/11/2025 MCHC 33.8 01/11/2025 RDW-CV 13.4 01/11/2025 Platelet Count 134 01/11/2025 MPV 10.7 01/11/2025 Neutrophils % 57.3 01/11/2025 Lymphocytes % 31.4 01/11/2025 Monocytes % 7.2 01/11/2025 Eosinophils % 3.1 01/11/2025 Basophils % 0.7 01/11/2025 Abs Neut 4.93 01/11/2025 Abs Major 0.62 01/11/2025 Abs Eosin 0.27 01/11/2025 Abs Baso 0.06 01/11/2025 BP 158/67 Pulse 58 Temp (Src) 98.4 (Oral) Resp 18 Ht 5' 8 (1.73m) Wt 252 lb (114.3kg) SpO2 95% LMP 10/21/2011 BMI 38.33 kg/(m2). O2 Therapy: Room Air DATA: Diagnostic tests reviewed for today's visit: Most recent labs and imaging results. Assessment/Plan Principal Problem: Sign of note-patient has been dealing with headache and uncontrolled hypertension for a while, added multiple medication during her hospitalization and her blood pressure has improved. Noted to have right renal artery stenosis, vascular surgery was consulted based on nephrology recommendation and plan for procedure on Friday. 54 years old with past medical history of morbid obesity, diabetes mellitus type 2, current smoker, history of hollis (more content not included)...[facility]03-29-2025 NoteHNO ID: [id number] Author: GHASSAN RASMUSSEN MD Service: Nephrology Author Type: Physician Type: Progress Notes Filed: 01/15/2025 10:47 Note Text: CONSULT PROGRESS NOTE NEPHROLOGY SERVICE SERVICE DATE: 01/15/2025 SERVICE TIME: 10:44 AM INTERVAL HISTORY: Seen and examined at the bedside comfortable no acute, had some question regarding her contrast allergy. MEDICATIONS: Current Facility-Administered Medications Medication Dose Route Frequency NaCl 0.9% iv flush bag 20 mL INTRAVENOUS PRN heparin 5,000 Units injection 5,000 Units SUBCUTANEOUS q 12 H amLODIPine 10 mg tab(s) (NORVASC) 10 mg ORAL DAILY hydrALAZINE 20 mg tab(s) (APRESOLINE) 20 mg ORAL TID PRN lisinopril 40 mg tab(s) (ZESTRIL) 40 mg ORAL DAILY dextrose 40 % 15 g 15 g ORAL PRN Or glucagon 1 mg injection 1 mg INTRAMUSCULAR PRN Or dextrose 10% iv bolus 12.5 g INTRAVENOUS PRN insulin lispro injection (rapid acting) (ADMElog) SUBCUTANEOUS w MEALS insulin lispro injection (rapid acting) (ADMElog) SUBCUTANEOUS AT BEDTIME metoprolol tartrate (short acting) 50 mg tab(s) (LOPRESSOR) 50 mg ORAL BID insulin glargine 15 Units pen (long acting) 15 Units SUBCUTANEOUS AT BEDTIME gabapentin 600 mg cap(s) (NEURONTIN) 600 mg ORAL BID hydroCHLOROthiazide 25 mg tab(s) 25 mg ORAL DAILY HYDROcodone 5 mg - acetaminophen 325 mg tablet (NORCO) 1 tablet ORAL q 6 H PRN ondansetron (PF) 4 mg injection (ZOFRAN) 4 mg INTRAVENOUS q 6 H PRN hydrALAZINE 25 mg tab(s) (APRESOLINE) 25 mg ORAL q 8 H nicotine 21 mg/24 hr 1 Patch (NICODERM) 1 Patch TRANSDERMAL DAILY And nicotine -- REMOVE patch OTHER DAILY And nicotine - verify patch OTHER q 8 H nicotine polacrilex 2 mg gum (NICORETTE) 2 mg ORAL q 2 H PRN LORazepam 0.5 mg tab(s) (ATIVAN) 0.5 mg ORAL TID PRN atorvastatin 40 mg tab(s) (LIPITOR) 40 mg ORAL AT BEDTIME Objective PHYSICAL EXAM: BP 158/67 Pulse (!) 58 Temp 36.9 ?C (98.4 ?F) Resp 18 Ht 172.7 cm (5' 8) Wt 114.3 kg (252 lb) LMP 10/21/2011 SpO2 95% BMI 38.32 kg/m? Intake/Output Summary (Last 24 hours) at 01/15/2025 1044 Last data filed at 01/15/2025 0734 Gross per 24 hour Intake 660 ml Output -- Net 660 ml GEN: Appear comfortable in NAD. Head: NC/AT; CV: RRR, no m/r/g. LUNGS: CTAB, no w/r/c. ABD: Soft, NT/ND, NBS, no masses : Deferred SKIN: Warm, well perfused. No skin rashes MSK: Normal gait. No deformities. EXT: No clubbing, cyanosis, or edema. DATA: Diagnostic tests reviewed for today's visit: Most recent labs and imaging results. Recent Labs 01/15/25 0712 01/14/25 0432 01/13/25 0138 01/11/25 1201 NA 133* 138 135* 139 K 4.7 4.6 3.9 4.4 CHLOR 104 105 104 107 CO2 23 27 24 26 BUN 20 20 21 15 CREAT 0.99* 1.05* 0.92 0.85 GLUC 234* 157* 181* 125* ANION 6 6 7 6 CA 9.3 9.0 8.6 9.4 P 3.9 4.1 -- -- MG -- 2.0 1.7 1.8 Recent Labs 01/15/25 0712 01/14/25 0431 01/11/25 1201 WBC 7.70 7.35 8.61 HB 12.4 12.1 13.4 HCT 37.6 37.1 39.7 PLT 120* 121* 134* Recent Labs 01/15/25 0712 HB 12.4 Recent Labs 01/15/25 0712 ALKPHOS 81 CA 9.3 P 3.9 ALB 3.1* No results for input(s): BUNRAT, BUNPR, BUNPO in the last 168 hours. No results for input(s): HEPSABQ in the last 1440 hours. Invalid input(s): HEPSABG Assessment/Plan 54 year old female who presents with . Assessment: Hypertensive urgency Right renal artery stenosis Hyponatremia PLAN Blood pressure improving currently on amlodipine, hydralazine, lisinopril, hydrochlorothiazide, metoprolol Will uptitrate her hydralazine Mild hyponatremia possibly related to thiazide Pending angiogram and possible stenting on Friday. Kidney function remained stable Other protective measures for the kidney: Avoid nephrotoxic medications (NSAID's and iodinated IV contrast if possible, ..) Maintain MAP >65 at all times Transfuse for Hb < 7 Avoid hyperglycemia as able SIGNATURE: Ghassan Rasmussen MD PATIENT NAME: Nadia Anglin DATE: January 15, 2025 TIME: 10:44 [facility]03-28-2025 NoteHNO ID: [id number] Author: ONEL HARRELL MD Service: Nephrology Author Type: Physician Type: Progress Notes Filed: 01/14/2025 15:17 Note Text: CONSULT PROGRESS NOTE NEPHROLOGY SERVICE SERVICE DATE: 01/14/2025 SERVICE TIME: 3:11 PM Subjective INTERVAL HISTORY: Unfortunately bp remained high this morning. Patient asymptomatic. MEDICATIONS: Current Facility-Administered Medications Medication Dose Route Frequency NaCl 0.9% iv flush bag 20 mL INTRAVENOUS PRN heparin 5,000 Units injection 5,000 Units SUBCUTANEOUS q 12 H amLODIPine 10 mg tab(s) (NORVASC) 10 mg ORAL DAILY hydrALAZINE 20 mg tab(s) (APRESOLINE) 20 mg ORAL TID PRN lisinopril 40 mg tab(s) (ZESTRIL) 40 mg ORAL DAILY dextrose 40 % 15 g 15 g ORAL PRN Or glucagon 1 mg injection 1 mg INTRAMUSCULAR PRN Or dextrose 10% iv bolus 12.5 g INTRAVENOUS PRN insulin lispro injection (rapid acting) (ADMElog) SUBCUTANEOUS w MEALS insulin lispro injection (rapid acting) (ADMElog) SUBCUTANEOUS AT BEDTIME metoprolol tartrate (short acting) 50 mg tab(s) (LOPRESSOR) 50 mg ORAL BID insulin glargine 15 Units pen (long acting) 15 Units SUBCUTANEOUS AT BEDTIME gabapentin 600 mg cap(s) (NEURONTIN) 600 mg ORAL BID hydroCHLOROthiazide 25 mg tab(s) 25 mg ORAL DAILY HYDROcodone 5 mg - acetaminophen 325 mg tablet (NORCO) 1 tablet ORAL q 6 H PRN ondansetron (PF) 4 mg injection (ZOFRAN) 4 mg INTRAVENOUS q 6 H PRN hydrALAZINE 25 mg tab(s) (APRESOLINE) 25 mg ORAL q 8 H nicotine 21 mg/24 hr 1 Patch (NICODERM) 1 Patch TRANSDERMAL DAILY And [START ON 01/15/2025] nicotine -- REMOVE patch OTHER DAILY And nicotine - verify patch OTHER q 8 H nicotine polacrilex 2 mg gum (NICORETTE) 2 mg ORAL q 2 H PRN Objective PHYSICAL EXAM: BP 168/84 Pulse 62 Temp 37.5 ?C (99.5 ?F) (Oral) Resp 18 Ht 172.7 cm (5' 8) Wt 114.3 kg (252 lb) LMP 10/21/2011 SpO2 96% BMI 38.32 kg/m? No intake or output data in the 24 hours ending 01/14/25 1511 Patient resting comfortably. Lungs are clear anteriorly bilaterally Cardiovascular with normal S1-S2 without friction rub Abdomen soft and nontender Lower extremities without edema. DATA: Diagnostic tests reviewed for today's visit: Most recent labs and imaging results. Recent Labs 01/14/25 0432 01/13/25 0138 01/11/25 1201 NA 138 135* 139 K 4.6 3.9 4.4 CHLOR 105 104 107 CO2 27 24 26 BUN 20 21 15 CREAT 1.05* 0.92 0.85 GLUC 157* 181* 125* ANION 6 7 6 CA 9.0 8.6 9.4 P 4.1 -- -- MG 2.0 1.7 1.8 Recent Labs 01/14/25 0431 01/11/25 1201 WBC 7.35 8.61 HB 12.1 13.4 HCT 37.1 39.7 PLT 121* 134* Recent Labs 01/14/25 0431 HB 12.1 Recent Labs 01/14/25 0432 01/13/25 0138 01/11/25 1201 ALKPHOS -- -- 92 CA 9.0 < > 9.4 P 4.1 -- -- ALB -- -- 3.0* < > = values in this interval not displayed. No results for input(s): BUNRAT, BUNPR, BUNPO in the last 168 hours. No results for input(s): HEPSABQ in the last 1440 hours. Invalid input(s): HEPSABG Assessment/Plan 1. Hypertensive urgency 2. Right renal artery stenosis PLAN 1. Despite adjustments to medication, including addition of diuretic, bp remained high this morning, with systolic of 200's. 2. Will add hydralazine 25 mg TID to regimen 3. Recommend vascular surgery evaluation of right renal artery stenosis (per duplex). Patient reports allergy to CT contrast. May need MRA v/s angiogram. Renal profile stable. 4. Patient already on RASi/B-mir/Diuretic/CCB/Vasodilator. Next step would be to increase hydralazine and/or add spironolactone. Thanks SIGNATURE: Onel Harrell MD PATIENT NAME: Nadia Anglin DATE: January 14, 2025 TIME: 3:11 [facility]03-28-2025 NoteHNO ID: [id number] Author: LOURDES ALBERTO MD Service: Hospital Medicine Author Type: Physician Type: Progress Notes Filed: 01/14/2025 14:12 Note Text: INPATIENT PROGRESS NOTE SERVICE DATE: 01/14/2025 HOSPITAL COURSE: Subjective CHIEF COMPLAINT: Uncontrolled hypertension INTERVAL HPI: Seen and examined. Blood pressure is still significantly elevated and I reached out to huc who recommended hydralazine 25 3 times daily scheduled at the consulting vascular surgeon. Patient still complaining of [place] headache and she asked to go out and smoke however I had a discussion with her and she agreed to stay on nicotine patch and nicotine Current Outpatient Medications Medication Instructions albuterol HFA (PROAIR HFA) 90 mcg/actuation INHALATION inhaler 2 Puffs, INHALATION, EVERY 4 HOURS NEEDED gabapentin (NEURONTIN) 600 mg, 2 TIMES DAILY HYDROcodone-Acetaminophen (NORCO) 7.5-325 mg per tablet 1 tablet, EVERY 6 HOURS NEEDED LANTUS SOLOSTAR U-100 INSULIN 15 Units, AT BEDTIME lisinopril (ZESTRIL) 10 mg, ORAL, DAILY metoprolol tartrate (short acting) (LOPRESSOR) 50 mg, 2 TIMES DAILY Current Facility-Administered Medications Medication Dose Route Frequency NaCl 0.9% iv flush bag 20 mL INTRAVENOUS PRN heparin 5,000 Units injection 5,000 Units SUBCUTANEOUS q 12 H amLODIPine 10 mg tab(s) (NORVASC) 10 mg ORAL DAILY hydrALAZINE 20 mg tab(s) (APRESOLINE) 20 mg ORAL TID PRN lisinopril 40 mg tab(s) (ZESTRIL) 40 mg ORAL DAILY dextrose 40 % 15 g 15 g ORAL PRN Or glucagon 1 mg injection 1 mg INTRAMUSCULAR PRN Or dextrose 10% iv bolus 12.5 g INTRAVENOUS PRN insulin lispro injection (rapid acting) (ADMElog) SUBCUTANEOUS w MEALS insulin lispro injection (rapid acting) (ADMElog) SUBCUTANEOUS AT BEDTIME metoprolol tartrate (short acting) 50 mg tab(s) (LOPRESSOR) 50 mg ORAL BID insulin glargine 15 Units pen (long acting) 15 Units SUBCUTANEOUS AT BEDTIME gabapentin 600 mg cap(s) (NEURONTIN) 600 mg ORAL BID hydroCHLOROthiazide 25 mg tab(s) 25 mg ORAL DAILY HYDROcodone 5 mg - acetaminophen 325 mg tablet (NORCO) 1 tablet ORAL q 6 H PRN ondansetron (PF) 4 mg injection (ZOFRAN) 4 mg INTRAVENOUS q 6 H PRN hydrALAZINE 25 mg tab(s) (APRESOLINE) 25 mg ORAL q 8 H nicotine 21 mg/24 hr 1 Patch (NICODERM) 1 Patch TRANSDERMAL DAILY And [START ON 01/15/2025] nicotine -- REMOVE patch OTHER DAILY And nicotine - verify patch OTHER q 8 H nicotine polacrilex 2 mg gum (NICORETTE) 2 mg ORAL q 2 H PRN Objective Physical Exam Performed: General: Patient is alert and oriented x3 and is in no acute respiratory distress HEENT: Normal cephalic, atraumatic, PERRLA, TM's normal, Nose clear, Mouth normal Neck: Negative hepatojugular reflux or jugular venous distention, negative carotid bruit. Lungs: Clear to auscultation, no wheezing, rales, or rhonchi. Cardiac: Regular rhythm and rate, S1-S2 within normal limits, no murmurs, gallops were appreciated, no rubs. Abdomen: Soft, nontender, nondistended, no HSM detected, bowel sounds are active. Extremities: No edema, cyanosis, or clubbing. Skin: No rashes or breakdown. Musculoskeletal: normal MS exam, moves all extremities, DTR's normal Neurologic: Cranial nerves from II-XII intact grossly, no focal deficits. Glucose (mg/dL) Date Value 01/14/2025 157 Potassium (mmol/L) Date Value 01/14/2025 4.6 Sodium (mmol/L) Date Value 01/14/2025 138 Chloride (mmol/L) Date Value 01/14/2025 105 CO2 (mmol/L) Date Value 01/14/2025 27 Creatinine (mg/dL) Date Value 01/14/2025 1.05 BUN (mg/dL) Date Value 01/14/2025 20 Anion Gap (mmol/L) Date Value 01/14/2025 6 Calcium, Total (mg/dL) Date Value 01/14/2025 9.0 Estimated Creatinine Clearance: 79.4 mL/min (A) (based on SCr of 1.05 mg/dL (H)). CBC with diff: WBC 8.61 01/11/2025 RBC 4.50 01/11/2025 Hemoglobin 13.4 01/11/2025 Hematocrit 39.7 01/11/2025 MCV 88.2 01/11/2025 MCH 29.8 01/11/2025 MCHC 33.8 01/11/2025 RDW-CV 13.4 01/11/2025 Platelet Count 134 01/11/2025 MPV 10.7 01/11/2025 Neutrophils % 57.3 01/11/2025 Lymphocytes % 31.4 01/11/2025 Monocytes % 7.2 01/11/2025 Eosinophils % 3.1 01/11/2025 Basophils % 0.7 01/11/2025 Abs Neut 4.93 01/11/2025 Abs Major 0.62 01/11/2025 Abs Eosin 0.27 01/11/2025 Abs Baso 0.06 01/11/2025 BP 190/105 Pulse 63 Temp (Src) 98.3 (Oral) Resp 18 Ht 5' 8 (1.73m) Wt 252 lb (114.3kg) SpO2 97% LMP 10/21/2011 BMI 38.33 kg/(m2). O2 Therapy: Room Air DATA: Diagnostic tests reviewed for today's visit: Most recent labs and imaging results. Assessment/Plan Principal Problem: 54 years old with past medical history of morbid obesity, diabetes mellitus type 2, current smoker, history of neuropathy, uncontrolled hypertension presented due to elevated blood pressure. In the ED, blood pressure 248/140 improved to 180/72 doses of hydralazine, heart rate 66. EKG and troponin are unremarkable. CT of the brain is unremarka (more content not included)...[facility] 01-14-2025 NoteHNO ID: [id number] Author: HARI STOLL, RN Service: Care Management Author Type: Registered Nurse Type: Care Mgt Progress Note Filed: 01/14/2025 15:00 Note Text: CARE MANAGEMENT PROGRESS NOTE SERVICE DATE: 01/14/2025 SERVICE TIME: 8:55 AM LOS: 0 days Chart reviewed. Pt admitted to observation for headache with HTN. Renal US +, nephrology consulted. Pt from home independently with boyfriend. Pt stated that she does not drive due to neuropathy, family transports pt. Pt stated that she has transportation on discharge. Pt uses cane, wheelchair, nebulizer, glucometer, and blood pressure machine; pt also has walker at home that she does not currently use. Pt lives in mobile home, has steps into home. Attending continuing to monitor and titrate BP meds as tolerated; pt remains hypertensive this AM. Current discharge plan home with boyfriend. CM will follow for transitional discharge needs. Attending consulted vascular surgeon. SIGNATURE: Hari Stoll RN PATIENT NAME: Nadia Anglin DATE: January 14, 2025 [facility]: 8:[facility] NoteHNO ID: [id number] Author: SANDER HIGHTOWER MD Service: Hospital Medicine Author Type: Physician Type: Progress Notes Filed: 01/13/2025 10:28 Note Text: INPATIENT PROGRESS NOTE SERVICE DATE: 01/13/2025 SERVICE TIME: 10:08 AM SUBJECTIVE: -Patient was seen and examined today. -Patient feels better. -Denied cough, sore throat, chest pain, shortness of breath, palpitations. -Denied any nausea, vomiting, diarrhea, constipation, abdominal pain. OBJECTIVE: VITAL SIGNS: BP 139/91 Pulse 54 Temp (Src) 98.8 (Oral) Resp 18 Ht 5' 8 (1.73m) Wt 252 lb (114.3kg) SpO2 97% LMP 10/21/2011 BMI 38.33 kg/(m2). O2 Therapy: Room Air PHYSICAL EXAM: Constitutional: Morbidly obese, no acute distress Eyes: sclera anicteric, left eye normal, right eye normal Ears/Nose/Mouth/Throat: hearing normal and external ear normal, normal and mucous membranes moist, pharynx normal without lesions Cardiovascular: regular rate and rhythm, S1, S2 normal, no S3 or S4 Respiratory: clear to auscultation bilaterally, no wheezes, no rales and no rhonchi Gastrointestinal: soft, non-tender; bowel sounds normal; no masses, no organomegaly Musculoskeletal: no joint tenderness, deformity, no muscular tenderness noted Skin: warm and dry and anicteric Neurologic: alert, oriented, normal speech, no focal findings or movement disorder noted Psychiatric: appropriate INPATIENT MEDICATIONS: Current Facility-Administered Medications Medication Dose Route Frequency NaCl 0.9% iv flush bag 20 mL INTRAVENOUS PRN heparin 5,000 Units injection 5,000 Units SUBCUTANEOUS q 12 H amLODIPine 10 mg tab(s) (NORVASC) 10 mg ORAL DAILY hydrALAZINE 20 mg tab(s) (APRESOLINE) 20 mg ORAL TID PRN lisinopril 40 mg tab(s) (ZESTRIL) 40 mg ORAL DAILY dextrose 40 % 15 g 15 g ORAL PRN Or glucagon 1 mg injection 1 mg INTRAMUSCULAR PRN Or dextrose 10% iv bolus 12.5 g INTRAVENOUS PRN insulin lispro injection (rapid acting) (ADMElog) SUBCUTANEOUS w MEALS insulin lispro injection (rapid acting) (ADMElog) SUBCUTANEOUS AT BEDTIME metoprolol tartrate (short acting) 50 mg tab(s) (LOPRESSOR) 50 mg ORAL BID insulin glargine 15 Units pen (long acting) 15 Units SUBCUTANEOUS AT BEDTIME gabapentin 600 mg cap(s) (NEURONTIN) 600 mg ORAL BID hydroCHLOROthiazide 25 mg tab(s) 25 mg ORAL DAILY HYDROcodone 5 mg - acetaminophen 325 mg tablet (NORCO) 1 tablet ORAL q 6 H PRN ondansetron (PF) 4 mg injection (ZOFRAN) 4 mg INTRAVENOUS q 6 H PRN ASSESSMENT AND PLAN: 54 years old with past medical history of morbid obesity, diabetes mellitus type 2, current smoker, history of neuropathy, uncontrolled hypertension presented due to elevated blood pressure. In the ED, blood pressure 248/140 improved to 180/72 doses of hydralazine, heart rate 66. EKG and troponin are unremarkable. CT of the brain is unremarkable, chest x-ray unremarkable. Blood workup is negative. Patient admitted for hypertensive urgency. Hypertensive urgency, resolved Essential Hypertension Last BP 01/13/25 : 139/91 Continue patient on amlodipine 10 mg once a day, lisinopril 40 mg once a day, Lopressor 50mg bid, hydrochlorothiazide 25 mg once daily. Renal artery ultrasound ordered, pending. Nephrology consulted,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 interact withyour home medications. What How Much When Instructions Last Dose New ondansetron (ondansetron 4 mg oral tablet, disintegrating) 1 tab(s) by mouth Every 6 hours Duration: 4 Days Printed Prescription Unchanged acetaminophen-hydrocodone (acetaminophen-hydrocodone 325 mg-7.5 mg oral tablet) 1 tab(s) by mouth Every 6 hours Unchanged albuterol (ProAir HFA MDI (90 mcg/ inh) inhalation aerosol) 2 puff(s) by inhalation Every 4 hours as needed for for wheezing Unchanged cyclobenzaprine (Flexeril 10 mg oral tablet) 1 tab(s) by mouth Three (3) times a day as needed for for muscle spasm Unchanged DME (DME MISCellaneous) See instructions Please dispense Bud 2 sensors (2 total) as well as a Bud reader. Unchanged gabapentin (gabapentin 300 mg oral capsule) 2 cap by mouth Two (2) times a day Unchanged insulin glargine (Lantus Solostar Pen 100 units/ mL 3 mL Pen) 18 unit(s) Daily at bedtime Unchanged lisinopril 10 Milligram by mouth Two (2) times a day Please take this list to your next doctor s visit. Bring all medications you take, including over the counter medications, herbals and other supplements with you to your doctor s visit. Patients and families are reminded to discard old lists and to update any records with all medication providers or retail pharmacies. Education Materials Back Care Tips Caring for your back These are things you can do to prevent a recurrence of acute back pain and to reduce symptoms from chronic back pain: Maintain a healthy weight. If you are overweight, losing weight will help most types of back pain. Exercise is an important part of recovery from most types of back pain. The muscles behind and in front of the spine support the back. This means strengthening both the back muscles and the abdominalmuscles will provide better support for your spine. Swimming and brisk walking are good overall exercises to improve your fitness level. Practice safe lifting methods (below). Practice good posture when sitting, standing and walking. Avoid prolonged sitting. This puts more stress on the lower back than standing or walking. Wear quality shoes with sufficient arch support. Foot and ankle alignment can affect back symptoms.Women should avoid wearing high heels. Therapeutic massage can help relax the back muscles without stretching them. During the first 24 to 72 hours after an acute injury or flare-up of chronic back pain, apply an ice pack to the painful area for 20 minutes and then remove it for 20 minutes, over a period of 60 to 90 minutes, or several times a day. As a safety precaution, do not use a heating pad at bedtime. Sleeping on a heating pad can lead to skin rodriguez or tissue damage. You can alternate ice and heat therapies. Medicines Talk to your healthcare provider before using medicines, especially if you have other medical problems or are taking other medicines. You may use acetaminophen or ibuprofen to control pain, unless your healthcare provider prescribed other pain medicine. If you have chronic conditions like diabetes, liver or kidney disease, stomach ulcers, or gastrointestinal bleeding, or are taking blood thinners, talk with your healthcare provider before taking any medicines. Be careful if you are given prescription pain medicines, narcotics, or medicine for muscle spasm. They can cause drowsiness, affect your coordination, reflexes, and judgment. Do not drive or operate heavy machinery while taking these types of medicines. Take prescription pain medicine only as prescribed by your healthcare provider. Lumbar stretch Here is a simple stretching exercise that will help relax muscle spasm and keep your back more limber. If exercise makes your back pain worse, don t do it. Lie on your back with your knees bent and both feet on the ground. Slowly raise your left knee to your chest as you flatten your lower back against the floor. Hold for 5 seconds. Relax and repeat the exercise with your right knee. Do 10 of these exercises for each leg. Safe lifting method Don t bend over at the waist to lift an object off the floor. Instead, bend your knees and hips in a squat. Keep your back and head upright Hold the object close to your body, directly in front of you. Straighten your legs to lift the object. Lower the object to the floor in the reverse fashion. If you must slide something across the floor, push it. Posture tips Sitting Sit in chairs with straight backs or low-back support. Keep your knees lower than your hips, with your feet flat on the floor. When driving, sit up straight. Adjust the seat forward so you are not leaning toward the steering wheel. A small pillow or rolled towel behind your lower back may help if you are driving long distances. Standing When standing for long periods, shift most of your weight to one leg at a time. Alternate legs every few minutes. Sleeping The best way to sleep is on your side with your knees bent. Put a low pillow under your head to support your neck in a neutral spine position. Avoid thick pillows that bend your neck to one side. Puta pillow between your legs to further relax your lower back. If you sleep on your back, put pillowsunder your knees to support your legs in a slightly flexed position. Use a firm mattress. If your mattress sags, replace it, or use a 1/2-inch plywood board under the mattress to add support. Follow-up care Follow up with your healthcare provider, or as advised. If X-rays, a CT scan or an MRI scan were taken, they will be reviewed by a radiologist. You will benotified of any new findings that may affect your care. Call 911 Call 911 if any of the following occur: Trouble breathing Confusion Very drowsy Fainting or loss of consciousness Rapid or very slow heart rate Loss of bowel or bladder control When to seek medical advice Call your healthcare provider right away if any of the following occur: Pain becomes worse or spreads to your arms or legs Weakness or numbness in one or both arms or legs Numbness in the groin area [id number] [employer] for iPhone and Android. [address] [place] [address]. All rights reserved. This information is not intended as a substitute for professional medical care. Always follow yourhealthcare professional's instructions. Vomiting (Adult) Vomiting is a common symptom that may be due to different causes. These include gastroenteritis (stomach flu), food poisoning and gastritis. There are other more serious causes of vomiting which may be hard to diagnose early in the illness. Therefore, it is important to watch for the warning signs listed below. The main danger from repeated vomiting is dehydration. This is due to excess loss of water and minerals from the body. When this occurs, your body fluids must be replaced. Home care If symptoms are severe, rest at home for the next 24 hours. Because your symptoms may be from an infection, wash your hands often and well. If soap and water are not available, use alcohol-based specification consultant to keep from spreading the infection to others. Wash your hands for at least 20 seconds. Humming the happy birthday song twice while you wash is aneasy way to make sure you've washed for 20 seconds. Wash your hands after using the toilet, before and after preparing food, before eating food, after changing a diaper, cleaning a wound, caring for a sick person, and blowing your nose, coughing, or sneezing. You should also wash your hands after caring for someone who is sick, touching pet food, ortreats, and touching an animal, or animal waste. You may use acetaminophen or NSAID medicines like ibuprofen or naproxen to control fever, unless another medicine was prescribed. If you have chronic liver or kidney disease or ever had a stomach ulcer or gastrointestinal bleeding, talk with your doctor before using these medicines. Aspirin should never be used in anyone under 18 years of age who is ill with a fever. It may cause severe liver damage. Don't use NSAID medicines if you are already taking one for another condition (like arthritis) or are on aspirin (such as for heart disease, or after a stroke) Don't use tobacco and or drink alcohol, which may worsen your symptoms. If medicines for vomiting were prescribed, take as directed. Once vomiting stops, then follow these guidelines: During the first 12 to 24 hours follow the diet below: Fruit juices. Apple, grape juice, clear fruit drinks, and electrolyte replacement drinks. Beverages. Soft drinks without caffeine; mineral water (plain or flavored), decaffeinated tea and coffee. Soups. Clear broth and bouillon Desserts. Plain gelatin, ice pops, and fruit juice bars. As you feel better, you may add 6 to 8 ounces of yogurt per day. During the next 24 hours you may add the following to the above: Hot cereal, plain toast, bread, rolls, crackers Plain noodles, rice, mashed potatoes, chicken noodle or rice soup Unsweetened canned fruit such as applesauce, bananas (avoid pineapple and citrus) Limit caffeine and chocolate. No spices or seasonings except salt. During the next 24 hours: Gradually resume a normal diet, as you feel better and your symptoms lessen. Follow-up care Follow up with your healthcare provider, or as advised. When to seek medical advice Call your healthcare provider right away if any of these occur: Constant right-sided lower belly pain or increasing general belly pain Continued vomiting (unable to keep liquids down) for 24 hours Vomiting blood or coffee grounds Swollen belly Frequent diarrhea (more than 5 times a day); blood (red or black color) or mucus in diarrhea Reduced urine output or extreme thirst Weakness, dizziness or fainting Unusually drowsy or confused Fever of 100.4 F (38 C) oral or higher, or as directed Yellow color of the eyes or skin [id number] [employer]. [address] [place] [address]. All rights reserved. This information is not intended as a substitute for professional medical care. Always follow yourhealthcare professional's instructions. Additional Information VACCINATE! IT SAVES LIVES! Members of the community who have not yet received the COVID-19 vaccine and would like to receive it can visit one of [facility] vaccine clinics. There are many vaccine clinic locations within the [facility]. For locations and available times, please visit www.[email or web address].[place].gov/. It is important to note that some COVID mobile vaccine clinics are held outdoors and may be canceled in rainy or stormy conditions. To learn more about pediatric vaccinations (ages 5-11), we invite you to visit the [facility] webpage. https://www.[email or web address].org/pages/3535-Aeoyc-Omrsnqvxzis-Shtkuiirjb-Kzwyd-Ahx stions.htmlTo learn more about the COVID-19 vaccine, we invite you to visit the CDC website for a list of frequently asked questions. https://www.cdc.gov/coronavirus/2019-ncov/vaccines/faq.html [facility] Patient Portal Access Instructions: Stay connected with your healthcare team and access your personal medical information anytime with the [facility] Patient Portal. If you would like a full copy of your medical records please contact the [facility] Medical Records Department Friday through Friday between 8a.m. and 4:30p.m. Please follow the directions below to access the portal: 1.Access the email account you provided upon registration to the [facility].2.Look for an invitation email from [facility].3.Open the email and access the invitation link: Accept Invitation to [facility]4.Fill in the required milton to create your account. Sign into [email or web address] with your username and password that you created in the above steps to stay up to date. You can then view a summary of results, a summary of your visits, and the ability to download your summaries to your computer or send the information securely to a physician. Remember that your healthcare information is confidential, so carefully consider who you will allow to register on the [facility] Patient Portal for access to your information. You can also access the [facility] Patient Portal on the [employer] gisela. Simply click on Health Records under [employer] and then click on the [facility] logo. HOW TO SAFELY DISPOSE OF PRESCRIPTION MEDICATIONS Please use one of the following methods to safely dispose of your unused medications. 1.Use a drug disposal kit: the drug disposal pouch allows you to safely discard your old and unuseddrugs. Ask your nurse to give you one when you are discharged.2.Visit a local take-back location: Many local pharmacies and police departments have programs that collect old and unwanted prescriptiondrugs. Call your local pharmacy or go to http://[employer].EcoVadis/0N3Om0r to find one close to you.3.Make use of household items: Use cat litter or old coffee grounds to dispose medications if other options arenot available. Mix your drugs with these household products, seal them in an airtight container andthrow it into the garbage. Call [facility]: [phone] to be sure your drugs can be disposed of in this way. Some medicines may require a different approach.4.Never flush your medications down the toilet. IF YOU HAVE BEEN PRESCRIBED AN OPIOIDS FOR PAIN If you have been prescribed an opioid (such as hydrocodone, oxycodone or morphine), it is critical to understand the possible side effects and risks of opioid pain medications. Even when taken as directed, opioids can have several side effects including: Tolerance, meaning you might need to take more of a medication for the same pain relief. Nausea, vomiting and/or constipation. Sleepiness, dizziness, dry mouth, confusion, depression or itching. Physical dependence, meaning you have withdrawal symptoms when a medication is stopped ? this can develop within a few days. KNOW YOUR RESPONSIBILITIES It is important to know exactly how much and how often to take the opioid pain medications you are prescribed. Never take opioids in higher amounts or more often than prescribed. Do not combine opioids with alcohol or other drugs that cause drowsiness, such as benzodiazepines, also known as benzos,including diazepam and alprazolam, muscle relaxants or sleep aids. Never sell or share prescriptionopioids. This is illegal. Store opioids in a secure place and out of reach of others (including children, family, friends and visitors). The last page(s) of this document has been signed and retained as a CHART COPY Signatures Patient Education Materials Back Care Tips Vomiting (Adult) Medication Leaflets My discharge plan and instructions have been reviewed and explained to me and I,NADIA ANGLIN M understand my current condition and have read and understand these discharge instructions. I have received a written copy of the plan/instructions. If I have questions, I am aware that I should contact my doctor. Patient/Enrollment Services Dean Signature: Date/Time: Relationship to Patient: Witness Name/Signature: Date/Time: [facility]06[facility]30-2024 Hospital Discharge instructions Patient Education 04/18/2024 09:28:56 Chronic Back Pain, Ctqj-ba-Zega Chronic Back Pain When back pain lasts longer than 3 months, it is called chronic back pain. Pain may get worse at certain times (flare-ups). There are things you can do at home to manage your pain. Follow these instructions at home: Activity Avoid bending and other activities that make pain worse. When standing: ?Keep your upper back and neck straight. ?Keep your shoulders pulled back. ?Avoid slouching. When sitting: ?Keep your back straight. ?Relax your shoulders. Do not round your shoulders or pull them backward. Do not sit or milliner helper one place for long periods of time. Take short rest breaks during the day. Lying down or standing is usually better than sitting. Resting can help relieve pain. When sitting or lying down for a long time, do some mild activity or stretching. This will help to prevent stiffness and pain. Get regular exercise. Ask your doctor what activities are safe for you. Do not lift anything that is heavier than 10 lb (4.5 kg). To prevent injury when you lift things: ?Bend your knees. ?Keep the weight close to your body. ?Avoid twisting. Managing pain If told, put ice on the painful area. Your doctor may tell you to use ice for 24 48 hours after a flare-up starts. ?Put ice in a plastic bag. ?Place a towel between your skin and the bag. ?Leave the ice on for 20 minutes, 2 3 times a day. If told, put heat on the painful area as often as told by your doctor. Use the heat source that your doctor recommends, such as a moist heat pack or a heating pad. ?Place a towel between your skin and the heat source. ?Leave the heat on for 20 30 minutes. ?Remove the heat if your skin turns bright red. This is especially important if you are unable to feel pain, heat, or cold. You may have a greater risk of getting burned. Soak in a warm bath. This can help relieve pain. Take sjei-ehu-mdgczae and prescription medicines only as told by your doctor. General instructions Sleep on a firm mattress. Try lying on your side with your knees slightly bent. If you lie on your back, put a pillow under your knees. Keep all follow-up visits as told by your doctor. This is important. Contact a doctor if: You have pain that does not get better with rest or medicine. Get help right away if: One or both of your arms or legs feel weak. One or both of your arms or legs lose feeling (numbness). You have trouble controlling when you poop (bowel movement) or pee (urinate). You feel sick to your stomach (nauseous). You throw up (vomit). You have belly (abdominal) pain. You have shortness of breath. You pass out (faint). Summary When back pain lasts longer than 3 months, it is called chronic back pain. Pain may get worse at certain times (flare-ups). Use ice and heat as told by your doctor. Your doctor may tell you to use ice after flare-ups. This information is not intended to replace advice given to you by your health care provider. Make sure you discuss any questions you have with your health care provider. Document Released: 03/24/2009 Document Revised: 01/27/2020 Document Reviewed: 05/21/2018 [employer] Patient Education 2020 [employer] Follow Up Care 04/16/2024 10:00:46 With:EMILY GATES APRN-CURRICULUM DEVELOPMENT MANAGER Address: [address] [facility] [place], [place] [phone] When:3-[address] [facility] 06-30-2024 Note Discharge Instructions Thank you for allowing [facility] to assist you with your healthcare needs. The following is importantdischarge information regarding your hospital visit. Your Care Team [facility] Your Diagnosis Acute pyelonephritis Asthma Hypertension Nausea Type 2 diabetes mellitus with hyperglycemia What to do next Instructions From Your Doctor You were admitted due to concerns for pyelonephritis due to your recent infection with ESBL. Your urine culture came back growing normal urogenital madeleine this morning. I believe that the Macrodantin took care of your ESBL infection. I reviewed the CT scan again to make sure there was no mention of a kidney stone that may be moving and causing worsening back pain. There was no mention of any stonein your urinary tract. I am unsure at this point if your chronic back pain is a little worse for some reason. Please keep your appointment tomorrow with your PCP for any further suggestions they may have. Your creatinine was slightly bumped on labs yesterday and had trended down a little today (1.16 to 1.14). I am unsure of why this has occurred but you stated that you are drinking a lot of fluids and feel like you are urinating quite a bit. Please mention this to your PCP as they may want to recheck labs on you in a week or so. If you have any new or worsening symptoms, please return to the [facility]. Follow Up Appointments Follow Up with EMILY GATES When:Within 3-5 days Where:[address] [place] [address] [place] [address]- [phone] The Following Activity and Diet Have Been Ordered for You Discharge Activity - Ordered -- Resume your pre-hospitalization activity, 04/18/24 9:35:00 EDT Discharge Diet - Ordered -- No changes were made to your diet during your hospital stay. Please resume your pre hospitalization diet on discharge., 04/18/24 9:35:00 EDT Allergies Bactrim Vomiting, Hives Chocolate facial swelling, hives Cipro Hives, Vomiting Primatene Mist Inhaler coconut facial swelling, hives codeine Tongue swelling sulfamethoxazole Rash Medications Please ask your primary doctor or pharmacist before taking any other medication not listed, including over the counter drugs, herbal medications, vitamins and or supplements as they may interact withyour home medications. What How Much When Instructions Last Dose Unchanged acetaminophen-hydrocodone (acetaminophen-hydrocodone 325 mg-7.5 mg oral tablet) 1 tab(s) by mouth Every 6 hours 04/18/24 0849 Unchanged albuterol (ProAir HFA MDI (90 mcg/ inh) inhalation aerosol) 2 puff(s) by inhalation Every 4 hours as needed for for wheezing Unchanged cyclobenzaprine (Flexeril 10 mg oral tablet) 1 tab(s) by mouth Three (3) times a day as needed for for muscle spasm Unchanged DME (DME MISCellaneous) See instructions Please dispense Bud 2 sensors (2 total) as well as a Bud reader. Unchanged gabapentin (gabapentin 300 mg oral capsule) 2 cap by mouth Two (2) times a day 04/18/24 0849 Unchanged insulin glargine (Lantus Solostar Pen 100 units/ mL 3 mL Pen) 18 unit(s) Daily at bedtime Unchanged lisinopril 10 Milligram by mouth Two (2) times a day 04/18/24 0849 Please take this list to your next doctor s visit. Bring all medications you take, including over the counter medications, herbals and other supplements with you to your doctor s visit. Patients and families are reminded to discard old lists and to update any records with all medication providers or retail pharmacies. Education Materials Chronic Back Pain When back pain lasts longer than 3 months, it is called chronic back pain. Pain may get worse at certain times (flare-ups). There are things you can do at home to manage your pain. Follow these instructions at home: Activity Avoid bending and other activities that make pain worse. When standing: ? Keep your upper back and neck straight. ? Keep your shoulders pulled back. ? Avoid slouching. When sitting: ? Keep your back straight. ? Relax your shoulders. Do not round your shoulders or pull them backward. Do not sit or milliner helper one place for long periods of time. Take short rest breaks during the day. Lying down or standing is usually better than sitting. Resting can help relieve pain. When sitting or lying down for a long time, do some mild activity or stretching. This will help to prevent stiffness and pain. Get regular exercise. Ask your doctor what activities are safe for you. Do not lift anything that is heavier than 10 lb (4.5 kg). To prevent injury when you lift things: ? Bend your knees. ? Keep the weight close to your body. ? Avoid twisting. Managing pain If told, put ice on the painful area. Your doctor may tell you to use ice for 24 48 hours after a flare-up starts. ? Put ice in a plastic bag. ? Place a towel between your skin and the bag. ? Leave the ice on for 20 minutes, 2 3 times a day. If told, put heat on the painful area as often as told by your doctor. Use the heat source that your doctor recommends, such as a moist heat pack or a heating pad. ? Place a towel between your skin and the heat source. ? Leave the heat on for 20 30 minutes. ? Remove the heat if your skin turns bright red. This is especially important if you are unable to feel pain, heat, or cold. You may have a greater risk of getting burned. Soak in a warm bath. This can help relieve pain. Take nuou-hog-hdebjkr and prescription medicines only as told by your doctor. General instructions Sleep on a firm mattress. Try lying on your side with your knees slightly bent. If you lie on your back, put a pillow under your knees. Keep all follow-up visits as told by your doctor. This is important. Contact a doctor if: You have pain that does not get better with rest or medicine. Get help right away if: One or both of your arms or legs feel weak. One or both of your arms or legs lose feeling (numbness). You have trouble controlling when you poop (bowel movement) or pee (urinate). You feel sick to your stomach (nauseous). You throw up (vomit). You have belly (abdominal) pain. You have shortness of breath. You pass out (faint). Summary When back pain lasts longer than 3 months, it is called chronic back pain. Pain may get worse at certain times (flare-ups). Use ice and heat as told by your doctor. Your doctor may tell you to use ice after flare-ups. This information is not intended to replace advice given to you by your health care provider. Make sure you discuss any questions you have with your health care provider. Document Released: 03/24/2009 Document Revised: 01/27/2020 Document Reviewed: 05/21/2018 [employer] Patient Education 2020 [employer] Additional Information VACCINATE! IT SAVES LIVES! Members of the community who have not yet received the COVID-19 vaccine and would like to receive it can visit one of [facility] vaccine clinics. There are many vaccine clinic locations within the [facility]. For locations and available times, please visit https://Ucha.seot.coronavirus.[place].gov/. It is important to note that some COVID mobile vaccine clinics are held outdoors and may be canceled in rainy or stormy conditions. To learn more about pediatric vaccinations (ages 5-11), we invite you to visit the [facility] webpage. https://www.[facility].org/pages/9593-Lfilg-Qyfdeslofwm-Grgeqfikmc-Gwzyp-Udo stions.htmlTo learn more about the COVID-19 vaccine, we invite you to visit the CDC website for a list of frequently asked questions.https://www.cdc.gov/coronavirus/2019-ncov/vaccines/faq.html [facility] Patient Portal Access Instructions: Stay connected with your healthcare team and access your personal medical information anytime with the [facility] Patient Portal. Please follow the directions below to create your [facility] account: 1.Access the email account you provided upon registration to the hospital/physician office.2.Look for an invitation email from [facility].3.Open the email and access the invitation link: AcceptInvitation to [facility].4.Fill in the required milton to create your account. To access your account, visit [employer]. Click the blue button labeled Access Patient Portal and then log in with the username and password that you created in the steps above. You will be able to view your test results, lab results, a summary of your visits, upcoming appointments and more. There is also a convenient messaging option where you can send secure messages to your p rovider. In addition, you will have the ability to download any documents or summaries to your computer and/or send the information securely to a physician. Remember that your healthcare information is confidential, so carefully consider who you will allowto register on the [facility] Patient Portal for access to your information. You can also access the [facility] Patient Portal on the [facility] gisela. Simply click on Patient Portal and then log into your account. If you would like to receive a full copy of your medical records, please contact the [facility] Medical Records Department by calling [phone], Friday through Friday between 8 a.m. and 4:30 p.m. HOW TO SAFELY DISPOSE OF PRESCRIPTION MEDICATIONS Please use one of the following methods to safely dispose of your unused medications. 1.Use a drug disposal kit: the drug disposal pouch allows you to safely discard your old and unuseddrugs. Ask your nurse to give you one when you are discharged.2.Visit a local take-back location: Many local pharmacies and police departments have programs that collect old and unwanted prescriptiondrugs. Call your local pharmacy or go to http://Commun[employer] Science.EcoVadis/6P4Ql8s to find one close to you.3.Make use of household items: Use cat litter or old coffee grounds to dispose medications if other options arenot available. Mix your drugs with these household products, seal them in an airtight container andthrow it into the garbage. Call [facility]: [phone] to be sure your drugs can be disposed of in this way. Some medicines may require a different approach.4.Never flush your medications down the toilet. IF YOU HAVE BEEN PRESCRIBED AN OPIOID FOR PAIN If you have been prescribed an opioid (such as hydrocodone, oxycodone or morphine), it is critical to understand the possible side effects and risks of opioid pain medications. Even when taken as directed, opioids can have several side effects including: Tolerance, meaning you might need to take more of a medication for the same pain relief. Nausea, vomiting and/or constipation. Sleepiness, dizziness, dry mouth, confusion, depression or itching. Physical dependence, meaning you have withdrawal symptoms when a medication is stopped, can develop within a few days. KNOW YOUR RESPONSIBILITIES It is important to know exactly how much and how often to take the opioid pain medications you are prescribed. Never take opioids in higher amounts or more often than prescribed. Do not combine opioids with alcohol or other drugs that cause drowsiness, such as benzodiazepines, also known as benzos, including diazepam and alprazolam, muscle relaxants or sleep aids. Never sell or share prescription opioids. This is illegal. Store opioids in a secure place and out of reach of others (including children, family, friends and visitors). The last page of this document has been signed and retained as a CHART COPY. Signatures Patient Education Materials Chronic Back Pain, Wdse-af-Ysmt Medication Leaflets My discharge plan and instructions have been reviewed and explained to me and I,NADIA ANGLIN understand my current condition and have read and understand these discharge instructions. I have received a written copy of the plan/instructions. If I have questions, I am aware that I should contact my doctor. Patient/Enrollment Services Dean Signature: Date/Time: Relationship to Patient: Witness Name/Signature: Date/Time: [facility]06-30-2024 Note. MICRO - Microbiology PROCEDURE: Urine Culture [*1] SOURCE: Urine, Clean Catch BODY SITE: COLLECTED DATE/TIME: 04/16/2024 13:44 EDT RECEIVED DATE/TIME: 04/16/2024 20:56 EDT START DATE/TIME: 04/16/2024 20:56 EDT FREE TEXT SOURCE: FINAL REPORTS Final Report [] Verified Date/Time/Personnel: 04/18/2024 07:38 EDT 10,000 - 50,000 cfu/ml Mixed growth consistent with normal urogenital madeleine. PRELIMINARY REPORTS Preliminary Report [] Verified Date/Time/Personnel: 04/17/2024 10:43 EDT Culture results pending. Performing Locations *1: This test was performed at: [facility], [address] [place] [address], [id number] , [facility] ([place])04-17-2024 Note Date of Service 04/17/2024 Chief Complaint right lower back pain Subjective Patient seen and evaluated this morning while resting in bed. She has multiple complaints this morning but endorses ongoing pain in her right flank/lower back. She states that it feels like it is burning but this is different than her usual back pain and sciatica. Offered lidocaine patch to see if that would help her back pain but patient states those do not help. Patient advised that her CT scan appeared to show improvement in her pyelonephritis and there was no evidence of a kidney stone onthe scan. Her latest urine culture is still pending but showing no growth so far. She is being treated with meropenem to cover ESBL. Her urine culture should be back tomorrow so will plan for discharge. Patient denies any fever, chills, cough, shortness of breath, chest pain, abdominal pain, nauseaor dysuria. All questions answered. Objective Vitals and Measurements T: 36.7 C (Oral) TMIN: 36.5 C (Oral) TMAX: 36.8 C (Oral) HR: 71 (Monitored) RR: 18 BP: 161/91 SpO2:92% HT: 172.7 cm WT: 118.4 kg BMI: 39.53 Intake and Output 7AM Yesterday to 7AM Today Intake and Output (Last 24 hours) Intake Output Urine Voided 200.00 Urine Count 2.00 Total Summary Total Intake 0.00 Total Output 200.00 Fluid Balance -200.00 Physical Exam General: No acute distress. Patient is alert, chronically ill-appearing. Skin: No rash. Skin is warm, dry and intact. HEENT: Head is normocephalic, atraumatic. Pupils are equal, round and reactive. Neck: Supple. No lymphadenopathy, thyromegaly. Lungs: Bilaterally clear but diminished without crepitation or wheeze. Unlabored. Heart: Heart is regular rhythm, S1, S2. No murmurs, gallops or rubs. Abdomen: Abdomen is soft, nontender. Bowels sounds present in all quadrants. Extremities: No clubbing, cyanosis, or edema. Peripheral pulses palpable. No calf tenderness. Neurological: Patient is awake and alert to person, place and time. Following simple commands, moving all extremities. Weight Current Weight Dosing Weight: 118.4 kg (04/17/24) Current Weight: 118.4 kg (04/17/24) Dosing Weight: 117.9 kg (04/16/24) Medications Medications (19) Active Scheduled: (8) enoxaparin 40 mg/ 0.4mL syringe 40 mg 0.4 mL, Subcutaneous, qDay gabapentin 300 mg Capsule 600 mg 2 cap(s), Oral, BID insulin glargine 100 units/ml solution 18 unit(s) 0.18 mL, Subcutaneous, qHS insulin lispro 100 units/mL Soln COA (3 mL) Give 0-5 units/dose, Subcutaneous, TIDAC lisinopril 5 mg tablet 10 mg 2 tab(s), Oral, BID meropenem 1,000 mg, IV Piggyback, q8h Nicoderm patch REMOVAL 1 EA, Miscellaneous, q24h nicotine 21 mg/24 hr ER patch 21 mg 1 patch(es), Transdermal, q24h Continuous: (0) PRN: (11) acetaminophen 325 mg Tablet 650 mg 2 tab(s), Oral, q4h acetaminophen 325 mg Tablet 650 mg 2 tab(s), Oral, q4h acetaminophen-HYDROcodone 325-7.5 mg tablet 1 tab(s), Oral, q6hr albuterol - ipratropium 2.5 mg-0.5 mg/3 mL Inhal Suzette UD 3 mL, Inhalation, q4hRT benzonatate 100 mg Capsule 100 mg 1 cap(s), Oral, TID calcium carbonate 500 mg Chewable 500 mg 1 tab(s), Chewed, TID cyclobenzaprine 10 mg Tablet 10 mg 1 tab(s), Oral, TID guaifenesin 100 mg/5 mL 120 mL liquid 200 mg 10 mL, Oral, q4h ketorolac 30 mg/mL (1 mL) vial 15 mg 0.5 mL, IV Push, q6h melatonin 3 mg tablet 6 mg 2 tab(s), Oral, qHS ondansetron 2 mg/ 1 mL 2 mL INJ 4 mg 2 mL, IV Push, q4h Lab Results 04/17 05:28 WBC: 5.9 Hgb: 12.4 Hct: 36.8 L Platelet: 91 L Neutrophil %: 58.0 Glucose Level: 144 H Sodium Level: 139 Potassium Level: 4.4 BUN: 15 Creatinine Lvl (s): 1.16 H 04/16 10:42 WBC: 8.5 Hgb: 14.3 Hct: 41.2 Platelet: 129 L Neutrophil %: 58.7 Glucose Level: 105 Sodium Level: 136 Potassium Level: 4.1 BUN: 10 Creatinine Lvl (s): 0.91 Imaging Results and Diagnostics CT Abd/Pelvis w/ IV Contrast Only Result Date: April 16, 2024 Verified By: RADHIKA CORONA MD CLINICAL STATEMENT: IMPRESSION: Interval resolution of previously seen left renal edema and associated inflammatory changes; there is scarring and mildly diminished enhancement relative to the right. Otherwise, no significant interval change. EKG No qualifying data available. Assessment/Plan 1. Acute pyelonephritis Acute, ongoing. CT of the a/p questionable as it appears to be improving pyelonephritis. Urinalysiswas unremarkable except for a small amount of blood. Urine culture pending but showing no growth sofar. Continue meropenem 1000 mg IV q8 hours. Continue PO pain medication and antiemetics. Repeat CBC and BMP in the am. 2. Nausea Acute on chronic? Continue Zofran 4 mg IV PRN. 3. Type 2 diabetes mellitus with hyperglycemia Chronic. Blood sugar checks before meals and at bedtime. Cover with sliding scale insulin. ADA diet. Blood glucose goal of 180 or less and avoid hypoglycemia. 4. Hypertension Chronic. Continue current antihypertensives. SBP goal of 140 or less. 5. Asthma Chronic. Start duoneb aerosols as needed for shortness of breath/wheezing. DVT prophylaxis with Lovenox. Code status: Full Code. Labs, diagnostic test and progress notes reviewed as noted in HPI. Plan of care discussed with patient. All questions answered. Patient verbalizes understanding and is agreeable with plan of care. This case was discussed with collaborating physician, Dr. Kermit Arrieta. Anticipated Date of Discharge next 24 hours Time Spent 35 minutes spent reviewing past diagnostic tests, reviewing lab results, vital sign trends, medicalhistory, reviewing medications and ordering home medications, examining patient, discussed plan of care with care team, collaborating with physician, and documenting in chart. Digitally Signed by CRISTY LUTHER on 04/17/2024 12:[address] [facility]06-28-2024 Note Date of Service 04/16/2024 Chief Complaint Pt was seen last week and treated for UTI symptoms with oral antibiotics. Pt states pain has not improved. History of Present Illness Patient is a 53-year-old female, who follows with Emily Gates CNP with a past medical history significant for hypertension, type 2 diabetes, chronic back pain and tobacco dependence, presented to [facility] emergency department with the chief complaint of flank pain. Patient presented to the ED on 03/31/2024 due to nausea, vomiting and diarrhea for about 2 days. She was diagnosed with a UTI and was discharged home on Keflex and Zofran. On 04/03, her urine culture came back positivefor E. Coli ESBL. Patient was contacted and stated that she was feeling better at that time. A prescription was sent in for nitrofurantoin to cover. Patient states that she did this prescription up but has never really felt better. Patient states she developed flank pain over the last few days worsening today and returned to the ED. She denies any fever, chills, cough, shortness of breath, chest pain, abdominal pain, or dysuria. She endorses mild nausea. In the emergency department, CT of the abdomen/pelvis revealed interval resolution of previously seen left renal edema and associated inflammatory changes; there is scarring and mildly diminished enhancement relative to the right. CBC and BMP were unremarkable. Lipase negative. Urinalysis only positive for a small amount of blood. Patient was given multiple doses of 4 mg zofran IV and 4 mg morphine IV as well as 500 mg meropenem IV in the ED. The case was discussed with the ED physician who recommended admission for treatment of pyelonephritis. Patient will be transferred to medical surgical unit for observation. We will continue meropenem 1000 mg IV q8 hours. We will obtain urine and send for culture. Continue PO pain medications and antiemetics. Repeat CBC and BMP in the am. Patient seen and evaluated while sitting in a wheelchair in the ED. She appears to be in no acute distress at this time. She states that she has had the flank pain since her first ED visit and it never went away but worsened over the last few days. She claims that she did take all of the nitrofurantoin. Physical exam was unremarkable. Discussed plan of care with patient. All questions answered. Review of Systems Review of Systems: Reviewed in detail, including general health, HEENT, cardiovascular, respiratory, gastrointestinal, genitourinary, endocrine, musculoskeletal, neurologic, vascular, skin, and psychiatric. All are negative except for those listed in the History of Present Illness. Physical Exam Vitals and Measurements T: 36.8 C (Oral) TMIN: 36.7 C (Oral) TMAX: 36.8 C (Oral) HR: 76 (Monitored) RR: 18 BP: 134/62 SpO2:95% HT: 172.7 cm WT: 117.9 kg BMI: 39.53 Weight Dosing Weight: 117.9 kg (04/16/24) Dosing Weight: 117.9 kg (04/16/24) General: No acute distress. Patient is alert and appropriate. Skin: No rash. Skin is warm, dry and intact. HEENT: Head is normocephalic, atraumatic. Pupils are equal, round and reactive. Neck: Supple. No lymphadenopathy, thyromegaly. Lungs: Bilaterally clear but diminished without crepitation or wheeze. Unlabored. No costovertebraltenderness. Heart: Heart is regular rhythm, S1, S2. No murmurs, gallops or rubs. Abdomen: Abdomen is soft, nontender. Bowels sounds present in all quadrants. Extremities: No clubbing, cyanosis, or edema. Peripheral pulses palpable. No calf tenderness. Neurological: Patient is awake and alert to person, place and time. Following simple commands, moving all extremities. Lab Results 04/16 10:42 WBC: 8.5 Hgb: 14.3 Hct: 41.2 Platelet: 129 L Neutrophil %: 58.7 Glucose Level: 105 Sodium Level: 136 Potassium Level: 4.1 BUN: 10 Creatinine Lvl (s): 0.91 Imaging Results and Diagnostics CT Abd/Pelvis w/ IV Contrast Only Result Date: April 16, 2024 Verified By: RADHIKA CORONA MD CLINICAL STATEMENT: IMPRESSION: Interval resolution of previously seen left renal edema and associated inflammatory changes; there is scarring and mildly diminished enhancement relative to the right. Otherwise, no significant interval change. Assessment/Plan 1. Acute pyelonephritis Acute, ongoing. CT of the a/p questionable as it appears to be improving. Urinalysis was unremarkable except for a small amount of blood. Will obtain a urine culture today. Continue meropenem 1000 mgIV q8 hours. Continue PO pain medication and antiemetics. Repeat CBC and BMP in the am. 2. Nausea Acute on chronic? Continue Zofran 4 mg IV PRN. 3. Type 2 diabetes mellitus with hyperglycemia Chronic. Blood sugar checks before meals and at bedtime. Cover with sliding scale insulin. ADA diet. Blood glucose goal of 180 or less and avoid hypoglycemia. 4. Hypertension Chronic. Continue current antihypertensives. SBP goal of 140 or less. 5. Asthma Chronic. Start duoneb aerosols as needed for shortness of breath/wheezing. DVT prophylaxis with Lovenox. Code status: Full Code. Labs, diagnostic test and progress notes reviewed as noted in HPI. Plan of care discussed with patient. All questions answered. Patient verbalizes understanding and is agreeable with plan of care. This case was discussed with collaborating physician, Dr. Kermit Arrieta. 55 minutes spent reviewing past diagnostic tests, reviewing lab results, vital sign trends, medicalhistory, reviewing medications and ordering home medications, examining patient, discussed plan of care with care team, collaborating with physician, and documenting in chart. Problem List/Past Medical History Ongoing Acute kidney injury Acute pyelonephritis Asthma Bacteremia Chronic back pain Chronic pain Encounter for examination following treatment at hospital Hypertension Nausea Nicotine dependence Spinal stenosis Type 2 diabetes mellitus with hyperglycemia Procedure/Surgical History delivery Medications Home Medications (7) Active acetaminophen-hydrocodone 325 mg-7.5 mg oral tablet 1 tab(s), Oral, q6hr DME MISCellaneous See Instructions Flexeril 10 mg oral tablet 10 mg = 1 tab(s), PRN, Oral, TID gabapentin 300 mg oral capsule 600 mg = 2 cap(s), Oral, BID Lantus Solostar Pen 100 units/mL 3 mL Pen 18 unit(s), qHS lisinopril 10 mg, Oral, BID ProAir HFA MDI (90 mcg/inh) inhalation aerosol 2 puff(s), PRN, Inhalation, q4h Allergies Bactrim Vomiting, Hives Chocolate facial swelling, hives Cipro Hives, Vomiting Primatene Mist Inhaler coconut facial swelling, hives codeine Tongue swelling sulfamethoxazole Rash Social History Smoking Status - 04/15/2016 Current every day smoker Alcohol - No Risk, 05/30/2019 Use: Never., 05/30/2019 Home/Environment Domestic Concerns: None. Living situation: Home/Independent. Primary Hoop Maker: Drew - significant other. 15+yrs. Safe [address] to go: Yes. Lives In: Mobile home. Current Home Treatments Blood Glucosemonitoring, Blood Pressure monitoring. Professional Skilled Services or Special Community ResourcesNone. OTher risks in environment: Pets/Animal exposure. Financial concerns: No. Marital Status: Unmarried., 06/12/2023 Nutrition/Health Type of diet: Diabetic. Appetite Fair. Skin Breakdown No. Caffeine intake amount: 1 cup of coffee daily.., 06/12/2023 Substance Abuse - No Risk, 05/30/2019 Use: Never., 05/30/2019 Tobacco - No Risk, 05/30/2019 Nicotine Use: 10 or more cigarettes (1/2 pack or more)/day in last 30 days, Smoker, current status unknown. Type: Cigarettes. Tobacco use per day: 1. Started at age: 14 Years. Ready to change: No. Smoking Cessation Information Smoking cessation information provided., 08/18/2023 Family History Alcohol abuse: Father. Asthma: Mother. Dementia: Mother. Diabetes: Sister, Brother and Grandparent. Heart disease: Father and Grandparent. Ovarian cancer: Grandparent. Stroke: Mother and Grandparent. Health Status Family Member(s) Family Member(s) Relationship: Sister, Age: 54 Years, Cause: diabetes Immunizations SARS-CoV-2 (COVID-19) mRNA-1273 vaccine: 0.5 unknown unit (06/11/21) SARS-CoV-2 (COVID-19) mRNA-1273 vaccine: 0.5 unknown unit (05/14/21) Code Status Code Status - Ordered -- 04/16/24 12:04:00 EDT, Full Code, Constant Order Digitally Signed by CRISTY LUTHER on 04/16/2024 02:[address] [facility]06-28-2024 Evaluation + Plan noteExtracted from: Title:History and Physical Author:CRISTY LUTHER APRN-CURRICULUM DEVELOPMENT MANAGER Date:04/16/24 1. Acute pyelonephritis Acute, ongoing. CT of the a/p questionable as it appears to be improving. Urinalysis was unremarkable except for a small amount of blood. Will obtain a urine culture today. Continue meropenem 1000 mg IV q8 hours. Continue PO pain medication and antiemetics. Repeat CBC and BMP in the am. 2. Nausea Acute on chronic? Continue Zofran 4 mg IV PRN. 3. Type 2 diabetes mellitus with hyperglycemia Chronic. Blood sugar checks before meals and at bedtime. Cover with sliding scale insulin. ADA diet. Blood glucose goal of 180 or less and avoid hypoglycemia. 4. Hypertension Chronic. Continue current antihypertensives. SBP goal of 140 or less. 5. Asthma Chronic. Start duoneb aerosols as needed for shortness of breath/wheezing. DVT prophylaxis with Lovenox. Code status: Full Code. Labs, diagnostic test and progress notes reviewed as noted in HPI. Plan of care discussed with patient. All questions answered. Patient verbalizes understanding and is agreeable with plan of care. This case was discussed with collaborating physician, Dr. Kermit Arrieta. 55 minutes spent reviewing past diagnostic tests, reviewing lab results, vital sign trends, medical history, reviewing medications and ordering home medications, examining patient, discussed plan of care with care team, collaborating with physician, and documenting in chart. [facility] 06-28-2024 Note ORIGINAL HISTORY: Neck pain, history of pyelonephritis COMPARISON: 12 August 2023 TECHNIQUE: CT of the Abdomen and Pelvis following uncomplicated administration of intravenous contrast, with sagittal and coronal reconstructions. This exam was performed according to our departmental dose optimization program, and includes the following measures where applicable: automated exposure control, adjustment of the mAs and/or kVp according to patient size and/or exam, and an iterative reconstruction algorithm. 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 The liver is small with a somewhat nodular outline. The left kidney is smaller than its right counterpart, with scarring and mildly diminished relative enhancement. The remaining abdominal organs are unremarkable in appearance. Bowel is poorly evaluated in the absence of oral contrast. A normal appendix is identified. There is no free fluid. IMPRESSION: Interval resolution of previously seen left renal edema and associated inflammatory changes; there is scarring and mildly diminished enhancement relative to the right. Otherwise, no significant interval change. Interpreted by: Radhika Corona MD Preliminary Report By: Radhika Corona MD Electronically signed By Radhika Corona MD Dictated Date: 04/16/2024 11:36:57 AM Prelim Date: 04/16/2024 11:51:57 AM Sign Date: 04/16/2024 11:51:57 AM Ordering Provider: [facility]06-14-2024 Note. MICRO - Microbiology PROCEDURE: Urine Culture [O1 *1] SOURCE: Urine BODY SITE: COLLECTED DATE/TIME: 03/31/2024 10:53 EDT RECEIVED DATE/TIME: 03/31/2024 20:04 EDT START DATE/TIME: 03/31/2024 20:04 EDT FREE TEXT SOURCE: FINAL REPORTS Final Report [] Verified Date/Time/Personnel: 04/02/2024 08:58 EDT 50,000 - 100,000 cfu/ml Escherichia coli ESBL Extended-Spectrum B-Lactamase isolate may be clinically resistant to therapy with Penicillins, Cephalosporinsor Aztreonam despite apparent in vitro susceptibility to some of these agents. Use of Imipenem is currently restricted to Infectious Disease /Intensivists. Please consult Physicians accordingly. PRELIMINARY REPORTS Preliminary Report [] Verified Date/Time/Personnel: 04/01/2024 10:41 EDT 50,000 - 100,000 cfu/ml Escherichia coli FREDIS to follow SUSCEPTIBILITY RESULTS Escherichia coli ESBL Antibiotic FREDIS Dilut FREIDS Inter Ampicillin >16 Resistant Ampicillin/ >16/8 Resistant Sulbactam Aztreonam >16 Resistant Cefazolin >16 Resistant Cefotaxime >32 Suspected ESBL Snaker Ceftriaxone >32 Suspected ESBL Snaker Cefuroxime >16 Resistant Ciprofloxacin >2 Resistant Ertapenem <=0.5 Susceptible Gentamicin <=2 Susceptible ID Panel Not Not Applicable Applicable Imipenem <=1 Susceptible Levofloxacin >4 Resistant Meropenem <=1 Susceptible Minocycline <=4 Susceptible Nitrofurantoin <=32 Susceptible Trimethoprim/ >2/38 Resistant Sulfa Order Comments O1: Urine Culture Added by Discern Performing Locations *1: This test was performed at: [address], [facility] , [facility] ([place])03-31-2024 Hospital Discharge instructions Patient Education 03/31/2024 12:18:03 Self-Care for Vomiting and Diarrhea Self-Care for Vomiting and Diarrhea Vomiting and diarrhea can make you miserable. Your stomach and bowels are reacting to an irritant. This might be food, medicine, or a viral stomach flu. Vomiting and diarrhea are two ways your body can remove the problem from your system. Nausea is a symptom that discourages you from eating. This gives your stomach and bowels time to recover. To get back to normal, start with self-care to ease your discomfort. Drink liquids Drink or sip liquids to avoid losing too much fluid (dehydration): Clear liquids such as water or broth are the best choices. Don't have drinks with a lot of sugar in them, such as juices and sodas. These can make diarrhea worse. If you have severe vomiting, don't drink sport drinks, such as electrolyte solutions. These don't have the right mix of water, sugar, and minerals. They can also make the symptoms worse. In this situation, commercially available oral rehydration solutions are best. Suck on ice chips if the thought of drinking something makes you queasy. When you re able to eat again Tips include the following: As your appetite comes back, you can resume your normal diet. Ask your healthcare provider if you should stay away from any foods. Medicines Know the following about medicines: Vomiting and diarrhea are ways your body uses to rid itself of harmful substances such as bacteria.Don't use antidiarrheal or antivomiting (antiemetic) medicines unless your healthcare provider tells you to do so. Aspirin, medicine with aspirin, and many aspirin substitutes can irritate your stomach. So don't use them when you have stomach upset. Certain prescription and ptvc-tdi-coonznq medicines can cause vomiting and diarrhea. Talk with yourhealthcare provider about any medicines you take that may be causing these symptoms. Certain thct-qgn-oykvzfi antihistamines can help control nausea. Other medicines can help soothe stomach upset. Ask your healthcare provider which medicines may help you. When to call your healthcare provider Call your healthcare provider if you have: Bloody or black vomit or stools Severe, steady belly pain Vomiting with a severe headache or stiff neck Vomiting after a head injury Vomiting and diarrhea together for more than an hour An inability to hold down even sips of liquids for more than 12 hours Vomiting that lasts more than 24 hours Severe diarrhea that lasts more than 2 days Fever of 100.4 F (38.0 C) or higher, or as directed by your healthcare provider Yellowish color to your skin or the whites of your eyes Inability to urinate. In infants and young children, not making wet diapers. [id number] [employer]. [address] [place] [address], [place] [address]. All rights reserved. This information is not intended as a substitute for professional medical care. Always follow yourhealthcare professional's instructions. 03/31/2024 12:18:00 Bladder Infection, Female (Adult) Bladder Infection, Female (Adult) Urine is normally doesn't have any bacteria in it. But bacteria can get into the urinary tract fromthe skin around the rectum. Or they can travel in the blood from elsewhere in the body. Once they are in your urinary tract, they can cause infection in the urethra (urethritis), the bladder (cystitis), or the kidneys (pyelonephritis). The most common place for an infection is in the bladder. This is called a bladder infection. This is one of the most common infections in women. Most bladder infections are easily treated. They are not serious unless the infection spreads to the kidney. The phrases bladder infection, UTI, and cystitis are often used to describe the same thing. But they are not always the same. Cystitis is an inflammation of the bladder. The most common cause of cystitis is an infection. Symptoms The infection causes inflammation in the urethra and bladder. This causes many of the symptoms. Themost common symptoms of a bladder infection are: Pain or burning when urinating Having to urinate more often than usual Urgent need to urinate Only a small amount of urine comes out Blood in urine Abdominal discomfort. This is usually in the lower abdomen above the pubic bone. Cloudy urine Strong- or bad-smelling urine Unable to urinate (urinary retention) Unable to hold urine in (urinary incontinence) Fever Loss of appetite Confusion (in older adults) Causes Bladder infections are not contagious. You can't get one from someone else, from a toilet seat, or from sharing a bath. The most common cause of bladder infections is bacteria from the bowels. The bacteria get onto the skin around the opening of the urethra. From there, they can get into the urine and travel up to thebladder, causing inflammation and infection. This usually happens because of: Wiping improperly after urinating. Always wipe from front to back. Bowel incontinence Procedures such as having a catheter inserted Older age Not emptying your bladder. This can allow bacteria a chance to grow in your urine. Dehydration Constipation Sex Use of a diaphragm for control Treatment Bladder infections are diagnosed by a urine test. They are treated with antibiotics and usually clear up quickly without complications. Treatment helps prevent a more serious kidney infection. Medicines Medicines can help in the treatment of a bladder infection: Take antibiotics until they are used up, even if you feel better. It is important to finish them tomake sure the infection has cleared. You can use acetaminophen or ibuprofen for pain, fever, or discomfort, unless another medicine was prescribed. If you have chronic liver or kidney disease, talk with your healthcare provider before using these medicines. Also talk with your provider if you've ever had a stomach ulcer or gastrointestinal bleeding, or are taking blood-thinner medicines. If you are given phenazopydridine to reduce burning with urination, it will cause your urine to become a bright orange color. This can stain clothing. Care and prevention These self-care steps can help prevent future infections: Drink plenty of fluids to prevent dehydration and flush out your bladder. Do this unless you must restrict fluids for other health reasons, or your doctor told you not to. Proper cleaning after going to the bathroom is important. Wipe from front to back after using the toilet to prevent the spread of bacteria. Urinate more often. Don't try to hold urine in for a long time. Wear loose-fitting clothes and cotton underwear. Avoid tight-fitting pants. Improve your diet and prevent constipation. Eat more fresh fruit and vegetables, and fiber, and less junk and fatty foods. Avoid sex until your symptoms are gone. Avoid caffeine, alcohol, and spicy foods. These can irritate your bladder. Urinate right after intercourse to flush out your bladder. If you use control pills and have frequent bladder infections, discuss it with your doctor. Follow-up care Call your healthcare provider if all symptoms are not gone after 3 days of treatment. This is especially important if you have repeat infections. If a culture was done, you will be told if your treatment needs to be changed. If directed, you cancall to find out the results. If X-rays were done, you will be told if the results will affect your treatment. Call 911 Call 911 if any of the following occur: Trouble breathing Hard to wake up or confusion Fainting or loss of consciousness Rapid heart rate When to seek medical advice Call your healthcare provider right away if any of these occur: Fever of 100.4 F (38.0 C) or higher, or as directed by your healthcare provider Symptoms are not better by the third day of treatment Back or belly (abdominal) pain that gets worse Repeated vomiting, or unable to keep medicine down Weakness or dizziness Vaginal discharge Pain, redness, or swelling in the outer vaginal area (labia) [id number] [employer]. [address] [place] [address], [place] [address]. All rights reserved. This information is not intended as a substitute for professional medical care. Always follow yourhealthcare professional's instructions. Follow Up Care 03/31/2024 08:38:49 With:EMILY GATES Address: [address] [place] [address] [phone] When:2-[address] [facility] 06-12-2024 Evaluation + Plan note Diagnostic Tests Pending * Urine Culture 03/31/[address] [facility] 06-12-2024 Note Discharge Instructions Thank you for allowing [facility] to assist you with your healthcare needs. The following is importantdischarge information regarding your hospital visit. What to Do Next Instructions from Your Care Team No qualifying data available. Post Acute Orders No qualifying data available. You Need to Schedule the Following Appointments Follow Up with EMILY GATES When:Within 2-4 days Where:[address] [place] [address] [phone] Allergies Bactrim Chocolate facial swelling, hives Cipro Primatene Mist Inhaler coconut facial swelling, hives codeine sulfamethoxazole Medications Please ask your primary doctor or pharmacist before taking any other medication not listed, including over the counter drugs, herbal medications, vitamins and or supplements as they may interact withyour home medications. What How Much When Instructions Last Dose New cephalexin (cephalexin 500 mg oral capsule) 1 cap by mouth Four (4) times a day Duration: 7 Days Take with a probiotic Printed Prescription New ondansetron (ondansetron 4 mg oral tablet, disintegrating) 1 tab(s) by mouth Every 8 hours Duration: 3 Days Printed Prescription Unchanged acetaminophen-hydrocodone (acetaminophen-hydrocodone 325 mg-7.5 mg oral tablet) 1 tab(s) by mouth Every 6 hours Unchanged albuterol (ProAir HFA MDI (90 mcg/ inh) inhalation aerosol) 2 puff(s) by inhalation Every 4 hours as needed for for wheezing Unchanged albuterol (Ventolin HFA MDI (90 mcg/ inh) inhalation aerosol) Unchanged cyclobenzaprine (Flexeril 10 mg oral tablet) 1 tab(s) by mouth Three (3) times a day as needed for for muscle spasm Unchanged DME (DME MISCellaneous) See instructions Please dispense Bud 2 sensors (2 total) as well as a Bud reader. Unchanged famotidine (famotidine 20 mg oral tablet) 1 tab(s) by mouth Two (2) times a day Duration: 5 Days Unchanged gabapentin (gabapentin 300 mg oral capsule) 2 cap by mouth Two (2) times a day Unchanged insulin glargine (Lantus Solostar Pen 100 units/ mL 3 mL Pen) 18 unit(s) Daily at bedtime Unchanged lisinopril 10 Milligram by mouth Once a day Unchanged varenicline (Chantix Starter Pack 0.5 mg-1 mg oral tablet) 1 tab(s) by mouth Two (2) times a day Please take this list to your next doctor s visit. Bring all medications you take, including over the counter medications, herbals and other supplements with you to your doctor s visit. Patients and families are reminded to discard old lists and to update any records with all medication providers or retail pharmacies. Education Materials Self-Care for Vomiting and Diarrhea Vomiting and diarrhea can make you miserable. Your stomach and bowels are reacting to an irritant. This might be food, medicine, or a viral stomach flu. Vomiting and diarrhea are two ways your body can remove the problem from your system. Nausea is a symptom that discourages you from eating. This gives your stomach and bowels time to recover. To get back to normal, start with self-care to ease your discomfort. Drink liquids Drink or sip liquids to avoid losing too much fluid (dehydration): Clear liquids such as water or broth are the best choices. Don't have drinks with a lot of sugar in them, such as juices and sodas. These can make diarrhea worse. If you have severe vomiting, don't drink sport drinks, such as electrolyte solutions. These don't have the right mix of water, sugar, and minerals. They can also make the symptoms worse. In this situation, commercially available oral rehydration solutions are best. Suck on ice chips if the thought of drinking something makes you queasy. When you re able to eat again Tips include the following: As your appetite comes back, you can resume your normal diet. Ask your healthcare provider if you should stay away from any foods. Medicines Know the following about medicines: Vomiting and diarrhea are ways your body uses to rid itself of harmful substances such as bacteria.Don't use antidiarrheal or antivomiting (antiemetic) medicines unless your healthcare provider tells you to do so. Aspirin, medicine with aspirin, and many aspirin substitutes can irritate your stomach. So don't use them when you have stomach upset. Certain prescription and gdfr-arg-wdnxtjt medicines can cause vomiting and diarrhea. Talk with yourhealthcare provider about any medicines you take that may be causing these symptoms. Certain gynn-zby-gsckafz antihistamines can help control nausea. Other medicines can help soothe stomach upset. Ask your healthcare provider which medicines may help you. When to call your healthcare provider Call your healthcare provider if you have: Bloody or black vomit or stools Severe, steady belly pain Vomiting with a severe headache or stiff neck Vomiting after a head injury Vomiting and diarrhea together for more than an hour An inability to hold down even sips of liquids for more than 12 hours Vomiting that lasts more than 24 hours Severe diarrhea that lasts more than 2 days Fever of 100.4 F (38.0 C) or higher, or as directed by your healthcare provider Yellowish color to your skin or the whites of your eyes Inability to urinate. In infants and young children, not making wet diapers. [id number] [employer]. [address] [place] [address], [place] [address]. All rights reserved. This information is not intended as a substitute for professional medical care. Always follow yourhealthcare professional's instructions. Bladder Infection, Female (Adult) Urine is normally doesn't have any bacteria in it. But bacteria can get into the urinary tract fromthe skin around the rectum. Or they can travel in the blood from elsewhere in the body. Once they are in your urinary tract, they can cause infection in the urethra (urethritis), the bladder (cystitis), or the kidneys (pyelonephritis). The most common place for an infection is in the bladder. This is called a bladder infection. This is one of the most common infections in women. Most bladder infections are easily treated. They are not serious unless the infection spreads to the kidney. The phrases bladder infection, UTI, and cystitis are often used to describe the same thing. But they are not always the same. Cystitis is an inflammation of the bladder. The most common cause of cystitis is an infection. Symptoms The infection causes inflammation in the urethra and bladder. This causes many of the symptoms. Themost common symptoms of a bladder infection are: Pain or burning when urinating Having to urinate more often than usual Urgent need to urinate Only a small amount of urine comes out Blood in urine Abdominal discomfort. This is usually in the lower abdomen above the pubic bone. Cloudy urine Strong- or bad-smelling urine Unable to urinate (urinary retention) Unable to hold urine in (urinary incontinence) Fever Loss of appetite Confusion (in older adults) Causes Bladder infections are not contagious. You can't get one from someone else, from a toilet seat, or from sharing a bath. The most common cause of bladder infections is bacteria from the bowels. The bacteria get onto the skin around the opening of the urethra. From there, they can get into the urine and travel up to thebladder, causing inflammation and infection. This usually happens because of: Wiping improperly after urinating. Always wipe from front to back. Bowel incontinence Procedures such as having a catheter inserted Older age Not emptying your bladder. This can allow bacteria a chance to grow in your urine. Dehydration Constipation Sex Use of a diaphragm for control Treatment Bladder infections are diagnosed by a urine test. They are treated with antibiotics and usually clear up quickly without complications. Treatment helps prevent a more serious kidney infection. Medicines Medicines can help in the treatment of a bladder infection: Take antibiotics until they are used up, even if you feel better. It is important to finish them tomake sure the infection has cleared. You can use acetaminophen or ibuprofen for pain, fever, or discomfort, unless another medicine was prescribed. If you have chronic liver or kidney disease, talk with your healthcare provider before using these medicines. Also talk with your provider if you've ever had a stomach ulcer or gastrointestinal bleeding, or are taking blood-thinner medicines. If you are given phenazopydridine to reduce burning with urination, it will cause your urine to become a bright orange color. This can stain clothing. Care and prevention These self-care steps can help prevent future infections: Drink plenty of fluids to prevent dehydration and flush out your bladder. Do this unless you must restrict fluids for other health reasons, or your doctor told you not to. Proper cleaning after going to the bathroom is important. Wipe from front to back after using the toilet to prevent the spread of bacteria. Urinate more often. Don't try to hold urine in for a long time. Wear loose-fitting clothes and cotton underwear. Avoid tight-fitting pants. Improve your diet and prevent constipation. Eat more fresh fruit and vegetables, and fiber, and less junk and fatty foods. Avoid sex until your symptoms are gone. Avoid caffeine, alcohol, and spicy foods. These can irritate your bladder. Urinate right after intercourse to flush out your bladder. If you use control pills and have frequent bladder infections, discuss it with your doctor. Follow-up care Call your healthcare provider if all symptoms are not gone after 3 days of treatment. This is especially important if you have repeat infections. If a culture was done, you will be told if your treatment needs to be changed. If directed, you cancall to find out the results. If X-rays were done, you will be told if the results will affect your treatment. Call 911 Call 911 if any of the following occur: Trouble breathing Hard to wake up or confusion Fainting or loss of consciousness Rapid heart rate When to seek medical advice Call your healthcare provider right away if any of these occur: Fever of 100.4 F (38.0 C) or higher, or as directed by your healthcare provider Symptoms are not better by the third day of treatment Back or belly (abdominal) pain that gets worse Repeated vomiting, or unable to keep medicine down Weakness or dizziness Vaginal discharge Pain, redness, or swelling in the outer vaginal area (labia) [id number] [employer]. [address] [place] [address]. All rights reserved. This information is not intended as a substitute for professional medical care. Always follow yourhealthcare professional's instructions. Additional Information VACCINATE! IT SAVES LIVES! Members of the community who have not yet received the COVID-19 vaccine and would like to receive it can visit one of [facility] vaccine clinics. There are many vaccine clinic locations within the [facility]. For locations and available times, please visit www.[email or web address].[place].gov/. It is important to note that some COVID mobile vaccine clinics are held outdoors and may be canceled in rainy or stormy conditions. To learn more about pediatric vaccinations (ages 5-11), we invite you to visit the [facility] webpage. https://www.[facility].org/pages/8372-Qazpx-Myrpumtznsk-Zczcgpindw-Gxmip-Phl stions.htmlTo learn more about the COVID-19 vaccine, we invite you to visit the CDC website for a list of frequently asked questions. https://www.cdc.gov/coronavirus/2019-ncov/vaccines/faq.html [facility] Patient Portal Access Instructions: Stay connected with your healthcare team and access your personal medical information anytime with the [facility] Patient Portal. If you would like a full copy of your medical records please contact the [facility] Medical Records Department Friday through Friday between 8a.m. and 4:30p.m. Please follow the directions below to access the portal: 1.Access the email account you provided upon registration to the [facility].2.Look for an invitation email from [facility].3.Open the email and access the invitation link: Accept Invitation to [facility].Fill in the required milton to create your account. Sign into [email or web address] with your username and password that you created in the above steps to stay up to date. You can then view a summary of results, a summary of your visits, and the ability to download your summaries to your computer or send the information securely to a physician. Remember that your healthcare information is confidential, so carefully consider who you will allow to register on the [facility] Patient Portal for access to your information. You can also access the [facility] Patient Portal on the [employer] gisela. Simply click on Health Records under [employer] and then click on the [employer] logo. HOW TO SAFELY DISPOSE OF PRESCRIPTION MEDICATIONS Please use one of the following methods to safely dispose of your unused medications. 1.Use a drug disposal kit: the drug disposal pouch allows you to safely discard your old and unuseddrugs. Ask your nurse to give you one when you are discharged.2.Visit a local take-back location: Many local pharmacies and police departments have programs that collect old and unwanted prescriptiondrugs. Call your local pharmacy or go to http://Communication Science.EcoVadis/8M2Fp8g to find one close to you.3.Make use of household items: Use cat litter or old coffee grounds to dispose medications if other options arenot available. Mix your drugs with these household products, seal them in an airtight container andthrow it into the garbage. Call [facility]: [phone] to be sure your drugs can be disposed of in this way. Some medicines may require a different approach.4.Never flush your medications down the toilet. IF YOU HAVE BEEN PRESCRIBED AN OPIOIDS FOR PAIN If you have been prescribed an opioid (such as hydrocodone, oxycodone or morphine), it is critical to understand the possible side effects and risks of opioid pain medications. Even when taken as directed, opioids can have several side effects including: Tolerance, meaning you might need to take more of a medication for the same pain relief. Nausea, vomiting and/or constipation. Sleepiness, dizziness, dry mouth, confusion, depression or itching. Physical dependence, meaning you have withdrawal symptoms when a medication is stopped ? this can develop within a few days. KNOW YOUR RESPONSIBILITIES It is important to know exactly how much and how often to take the opioid pain medications you are prescribed. Never take opioids in higher amounts or more often than prescribed. Do not combine opioids with alcohol or other drugs that cause drowsiness, such as benzodiazepines, also known as benzos,including diazepam and alprazolam, muscle relaxants or sleep aids. Never sell or share prescriptionopioids. This is illegal. Store opioids in a secure place and out of reach of others (including children, family, friends and visitors). The last page(s) of this document has been signed and retained as a CHART COPY Signatures Patient Education Materials Self-Care for Vomiting and Diarrhea Bladder Infection, Female (Adult) Medication Leaflets My discharge plan and instructions have been reviewed and explained to me and IDERREK SHERRIE M understand my current condition and have read and understand these discharge instructions. I have received a written copy of the plan/instructions. If I have questions, I am aware that I should contact my doctor. Patient/Enrollment Services Dean Signature: Date/Time: Relationship to Patient: Witness Name/Signature: Date/Time: [facility]11-10-2023 Note. MICRO - Microbiology PROCEDURE: Urine Culture [*1] SOURCE: Urine BODY SITE: COLLECTED DATE/TIME: 08/27/2023 16:19 EST RECEIVED DATE/TIME: 08/27/2023 19:21 EST START DATE/TIME: 08/27/2023 19:21 EST FREE TEXT SOURCE: FINAL REPORTS Final Report [] Verified Date/Time/Personnel: 08/29/2023 07:40 EST No growth at 48 hours. PRELIMINARY REPORTS Preliminary Report [] Verified Date/Time/Personnel: 08/28/2023 08:47 EST No growth to date Performing Locations *1: This test was performed at: [address], [address] [place] [address] ([facility]08-23-2023 Note. MICRO - Microbiology PROCEDURE: Blood Culture (bacterial) [*1] SOURCE: Blood BODY SITE: COLLECTED DATE/TIME: 08/18/2023 16:03 EDT RECEIVED DATE/TIME: 08/18/2023 20:38 EDT START DATE/TIME: 08/18/2023 20:38 EDT FREE TEXT SOURCE: FINAL REPORTS Final Report [] Verified Date/Time/Personnel: 08/23/2023 20:59 EDT Blood Culture: No Growth at 5 days. PRELIMINARY REPORTS Preliminary Report [] Verified Date/Time/Personnel: 08/18/2023 21:59 EDT Culture has been received in lab and is no growth to date. Routine cultures are held for 5 days. Performing Locations *1: This test was performed at: [address] ([facility]08-23-2023 Note. MICRO - Microbiology PROCEDURE: Blood Culture (bacterial) [*1] SOURCE: Blood BODY SITE: COLLECTED DATE/TIME: 08/18/2023 16:03 EDT RECEIVED DATE/TIME: 08/18/2023 20:38 EDT START DATE/TIME: 08/18/2023 20:38 EDT FREE TEXT SOURCE: FINAL REPORTS Final Report [] Verified Date/Time/Personnel: 08/23/2023 20:59 EDT Blood Culture: No Growth at 5 days. PRELIMINARY REPORTS Preliminary Report [] Verified Date/Time/Personnel: 08/18/2023 21:59 EDT Culture has been received in lab and is no growth to date. Routine cultures are held for 5 days. Performing Locations *1: This test was performed at: [address], [address] [place], [place] [address]8-20-2023 Note. MICRO - Microbiology PROCEDURE: Urine Culture [*1] SOURCE: Urine, Mitchell Catheter BODY SITE: COLLECTED DATE/TIME: 08/18/2023 16:03 EDT RECEIVED DATE/TIME: 08/18/2023 22:21 EDT START DATE/TIME: 08/18/2023 22:21 EDT FREE TEXT SOURCE: FINAL REPORTS Final Report [] Verified Date/Time/Personnel: 08/20/2023 07:41 EDT No growth at 48 hours. PRELIMINARY REPORTS Preliminary Report [] Verified Date/Time/Personnel: 08/19/2023 09:26 EDT No growth to date Performing Locations *1: This test was performed at: [address], [address] [place], [place] [address]8-19-2023 Hospital Discharge instructions Patient Education 08/19/2023 13:31:37 Urinary Tract Infection, Adult, [id number] Urinary Tract Infection, Adult A urinary tract infection (UTI) is an infection of any part of the urinary tract. The urinary tractincludes: The kidneys. The ureters. The bladder. The urethra. These organs make, store, and get rid of pee (urine) in the body. What are the causes? This is caused by germs (bacteria) in your genital area. These germs grow and cause swelling (inflammation) of your urinary tract. What increases the risk? You are more likely to develop this condition if: You have a small, thin tube (catheter) to drain pee. You cannot control when you pee or poop (incontinence). You are female, and: ?You use these methods to prevent : ?A medicine that kills sperm (spermicide). ?A device that blocks sperm (diaphragm). ?You have low levels of a female hormone (estrogen). ?You are . You have genes that add to your risk. You are sexually active. You take antibiotic medicines. You have trouble peeing because of: ?A prostate that is bigger than normal, if you are male. ?A blockage in the part of your body that drains pee from the bladder (urethra). ?A kidney stone. ?A nerve condition that affects your bladder (neurogenic bladder). ?Not getting enough to drink. ?Not peeing often enough. You have other conditions, such as: ?Diabetes. ?A weak disease-fighting system (immune system). ?Sickle cell disease. ?Gout. ?Injury of the spine. What are the signs or symptoms? Symptoms of this condition include: Needing to pee right away (urgently). Peeing often. Peeing small amounts often. Pain or burning when peeing. Blood in the pee. Pee that smells bad or not like normal. Trouble peeing. Pee that is cloudy. Fluid coming from the vagina, if you are female. Pain in the belly or lower back. Other symptoms include: Throwing up (vomiting). No urge to eat. Feeling mixed up (confused). Being tired and grouchy (irritable). A fever. Watery poop (diarrhea). How is this treated? This condition may be treated with: Antibiotic medicine. Other medicines. Drinking enough water. Follow these instructions at home: Medicines Take xlar-ecc-zazklfi and prescription medicines only as told by your doctor. If you were prescribed an antibiotic medicine, take it as told by your doctor. Do not stop taking it even if you start to feel better. General instructions Make sure you: ?Pee until your bladder is empty. ?Do not hold pee for a long time. ?Empty your bladder after sex. ?Wipe from front to back after pooping if you are a female. Use each tissue one time when you wipe. Drink enough fluid to keep your pee pale yellow. Keep all follow-up visits as told by your doctor. This is important. Contact a doctor if: You do not get better after 1 2 days. Your symptoms go away and then come back. Get help right away if: You have very bad back pain. You have very bad pain in your lower belly. You have a fever. You are sick to your stomach (nauseous). You are throwing up. Summary A urinary tract infection (UTI) is an infection of any part of the urinary tract. This condition is caused by germs in your genital area. There are many risk factors for a UTI. These include having a small, thin tube to drain pee and notbeing able to control when you pee or poop. Treatment includes antibiotic medicines for germs. Drink enough fluid to keep your pee pale yellow. This information is not intended to replace advice given to you by your health care provider. Make sure you discuss any questions you have with your health care provider. Document Released: 03/24/2009 Document Revised: 09/23/2019 Document Reviewed: 04/15/2019 [employer] Patient Education [employer]. Follow Up Care 08/18/2023 15:06:02 With:EMILY GATES Address: [address] [place] [address] [place] [address]- [phone] When:08/25/2023 13:00:00 Comments:This is your post-hospital follow-up appointment. [facility] 10-31-2023 Evaluation + Plan noteExtracted from: Title:History and Physical Author:BRINDA CHAUDHRY Date:08/19/23 1. Bacteremia 2. UTI (urinary tract infection) 3. Hypertension 4. Type 2 diabetes mellitus with hyperglycemia Bacteremia Blood cultures from 08/12/2023 growing ESBL E. coli. She was treated with meropenem x7 days. Blood cultures at [facility] were recollected on 08/15/2023. 1 bottle showed no growth. Second bottle grew coagulase-negative staph. Likely skin contaminant. When patient was accepted,[employer] system was down and external records were unable to be reviewed. They were reviewed in depth this morning including H&P, consultation notes, discharge note. Labs reviewed. Blood cultures and urine cultures collected in the emergency department presently show no growth to date. UTI E. coli. Patient received 7 days of meropenem as indicated above. Blood cultures recollected in the emergency department and showed no growth at 2200 last night. Patient has no leukocytosis or fevers. She is hemodynamically stable. HTN- SBP goal 140 or less. Continue home antihypertensives. Type 2 diabetes mellitus- Glucose goal 180 or less and avoid hypoglycemia. Hold oral agents. Add corrective sliding scale insulin. ADA diet. DVT prophylaxis: Lovenox Code Status: Full code Plan of care discussed with patient. All questions answered. Patient verbalizes understanding is agreeable to plan of care. This dictation was performed using voice recognition software and may include grammatical and/or spelling errors. Future Appointments Appointment Date:08/25/2023 01:00:00 PM Scheduled Provider:EMILY GATES Location:[facility] Appointment Type:[facility] Hospital Follow-Up [facility] 10-31-2023 Note Date of Service 08/19/2023 Chief Complaint Patient comes in by EMS for altered mental status due to UTI. Patient was here last week and transferred to [place] where she signed herself out AMA. History of Present Illness 53-year-old female with past medical history significant for hypertension, type 2 diabetes mellitus, GERD, tobacco use, chronic pain, spinal stenosis. Patient presented to [facility] emergency department on 08/18/2023 via EMS for altered mentalstatus. She originally presented to [facility] on 08/12/2023 and was transferred to [facility] for urosepsis. She was being treated with meropenem for E. coli bacteremia and E. coli UTI. Patient was unhappy with the care and left AGAINST MEDICAL ADVICE on 08/18/2023. In the emergency department hereshe was hypertensive, afebrile, adequate oxygen saturations on room air. No leukocytosis. Urinalysis showed small amount of leukocyte Estrace with 2+ bacteria. Mild renal insufficiency with creatinine of 1.07 and GFR 53. Lactic acid was 1.2. X-ray chest was unremarkable. Patient has received a total of 7 days of IV antibiotics for bacteremia. Urine and blood cultures were recollected in the emergency department. She was given a dose of meropenem 500 mg twice in the emergency department. She wassubsequently admitted. On exam today patient denies any fever or chills just reports feeling not great. No fever or chills. No headaches or dizziness. Denies any chest pain. Admits chronic dyspnea. Longtime smoker. She has no N/C/C/D. Mitchell catheter was placed in the emergency department. Review of Systems See HPI for specific ROS. All other systems reviewed and negative. Physical Exam Vitals and Measurements T: 36.7 C (Oral) TMIN: 36.6 C (Oral) TMAX: 36.9 C (Oral) HR: 97(Monitored) RR: 18 BP: 132/59 SpO2: 92% HT: 172.7 cm WT: 115.8 kg BMI: 38.73 Weight Current Weight Dosing Weight: 115.5 kg (08/18/23) Current Weight: 115.8 kg (08/19/23) GEN: Appears chronically ill, sitting up in bed in no acute distress EYES: No conjunctival erythema, drainage. EOMI EARS: Hearing grossly intact. NOSE: No nasal discharge. THROAT: Oral cavity and pharynx pink and moist. CHEST: Normal S1 and S2. Rhythm is regular. Clear and diminished ABD: Positive bowel sounds x 4 quads. Soft, nondistended, nontender. EXT: No significant deformity or joint abnormality. No edema. Peripheral pulses intact. NEURO: Sensation grossly intact SKIN: Skin color normal PSYCH: The mental examination revealed the patient was alert and oriented x 4 Lab Results 08/19 05:54 WBC: 7.6 Hgb: 9.6 L Hct: 28.8 L Platelet: 88 L Neutrophil %: 76.4 Glucose Level: 127 H Sodium Level: 137 Potassium Level: 4.1 BUN: 18 Creatinine Lvl (s): 1.00 08/18 16:03 WBC: 8.4 Hgb: 10.6 L Hct: 32.1 L Platelet: 95 L Neutrophil %: 75.4 Protime: 16.1 H PT International Ratio: 1.4 Glucose Level: 153 H Sodium Level: 136 Potassium Level: 4.3 BUN: 22 H Creatinine Lvl (s): 1.07 H Imaging Results and Diagnostics XR Chest 1 View Result Date: August 18, 2023 Verified By: TYESHA COWAN MD CLINICAL STATEMENT: IMPRESSION: No focal consolidation or edema. I have personally reviewed the images of this examination and agree with theresident's finding and interpretation. Assessment/Plan 1. Bacteremia 2. UTI (urinary tract infection) 3. Hypertension 4. Type 2 diabetes mellitus with hyperglycemia Bacteremia Blood cultures from 08/12/2023 growing ESBL E. coli. She was treated with meropenem x7 days. Blood cultures at [facility] were recollected on 08/15/2023. 1 bottle showed no growth. Second bottlegrew coagulase-negative staph. Likely skin contaminant. When patient was accepted,[employer] system was down and external records were unable to be reviewed. They were reviewed in depth this morning including H&P, consultation notes, discharge note. Labs reviewed. Blood cultures and urine cultures collected in the emergency department presently show no growth to date. UTI E. coli. Patient received 7 days of meropenem as indicated above. Blood cultures recollected inthe emergency department and showed no growth at 2200 last night. Patient has no leukocytosis or fevers. She is hemodynamically stable. HTN- SBP goal 140 or less. Continue home antihypertensives. Type 2 diabetes mellitus- Glucose goal 180 or less and avoid hypoglycemia. Hold oral agents. Add corrective sliding scale insulin. ADA diet. DVT prophylaxis: Lovenox Code Status: Full code Plan of care discussed with patient. All questions answered. Patient verbalizes understanding is agreeable to plan of care. This dictation was performed using voice recognition software and may include grammatical and/or spelling errors. Problem List/Past Medical History Ongoing Acute kidney injury Acute pyelonephritis Asthma Chronic back pain Chronic pain Encounter for examination following treatment at hospital Hypertension Nausea Spinal stenosis Tobacco dependence Type 2 diabetes mellitus with hyperglycemia Historical No qualifying data Procedure/Surgical History delivery Medications Home Medications (11) Active acetaminophen-hydrocodone 325 mg-7.5 mg oral tablet 1 tab(s), Oral, q6hr DME [employer]IS[employer]aneous See Instructions ertapenem 1 g (Disch Rx) 1 gram(s), IV Piggyback, Daily famotidine 20 mg oral tablet 20 mg = 1 tab(s), Oral, BID Flexeril 10 mg oral tablet 10 mg = 1 tab(s), PRN, Oral, TID gabapentin 300 mg oral capsule 600 mg = 2 cap(s), Oral, BID Lantus Solostar Pen 100 units/mL 3 mL Pen 18 unit(s), qHS lisinopril 10 mg, Oral, qDay ProAir HFA MDI (90 mcg/inh) inhalation aerosol 2 puff(s), PRN, Inhalation, q4h Ventolin HFA MDI (90 mcg/inh) inhalation aerosol Zofran 4 mg, Oral, q6h Allergies Bactrim Chocolate (facial swelling, hives) Cipro Primatene Mist Inhaler coconut (facial swelling, hives) codeine sulfamethoxazole Social History Smoking Status - 04/15/2016 Current every day smoker Alcohol - No Risk, 05/30/2019 Use: Never., 05/30/2019 Home/Environment Domestic Concerns: None. Living situation: Home/Independent. Primary Hoop Maker: Drew - significant other. 15+yrs[address] Safe [address] to go: Yes. Lives In: Mobile home. Current Home Treatments Blood Glucosemonitoring, Blood Pressure monitoring. Professional Skilled Services or Special Community ResourcesNone. OTher risks in environment: Pets/Animal exposure. Financial concerns: No. Marital Status: Unmarried., 06/12/2023 Nutrition/Health Type of diet: Diabetic. Appetite Fair. Skin Breakdown No. Caffeine intake amount: 1 cup of coffee daily.., 06/12/2023 Substance Abuse - No Risk, 05/30/2019 Use: Never., 05/30/2019 Tobacco - No Risk, 05/30/2019 Nicotine Use: 10 or more cigarettes (1/2 pack or more)/day in last 30 days, Smoker, current status unknown. Type: Cigarettes. Tobacco use per day: 1. Started at age: 14 Years. Ready to change: No. Smoking Cessation Information Smoking cessation information provided., 08/18/2023 Family History Alcohol abuse: Father. Asthma: Mother. Dementia: Mother. Diabetes: Sister, Brother and Grandparent. Heart disease: Father and Grandparent. Ovarian cancer: Grandparent. Stroke: Mother and Grandparent. Immunizations SARS-CoV-2 (COVID-19) mRNA-1273 vaccine: 0.5 unknown unit (06/11/21) SARS-CoV-2 (COVID-19) mRNA-1273 vaccine: 0.5 unknown unit (05/14/21) Code Status Code Status - Ordered -- 08/18/23 18:31:00 EDT, Full Code, Constant Order Digitally Signed by BRINDA CAHUDHRY on 08/19/2023 01:[address] [facility]10-31-2023 Note Discharge Instructions Thank you for allowing [facility] to assist you with your healthcare needs. The following is importantdischarge information regarding your hospital visit. Your Care Team [facility] Your Diagnosis Altered mental status Bacteremia Hypertension Type 2 diabetes mellitus with hyperglycemia UTI (urinary tract infection) What to do next Scheduled Follow-Up Appointments Appointment Type When With Where Contact [facility] Follow-Up 08/25/2023 01:00 PM EST EMILY GATES [address] [id number] Follow Up Appointments Follow Up with EMILY GATES When 08/25/2023 01:00 PM EST Why: This is your post-hospital follow-up appointment. Where: [address] [place] [phone]- [phone] [facility] for outpatient antibiotic infusion x6 days at 12pm. 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 The Following Activity and Diet Have Been Ordered for You Discharge Activity - Ordered -- Resume your pre-hospitalization activity, 08/19/23 13:14:00 EDT Discharge Diet - Ordered -- No changes were made to your diet during your hospital stay. Please resume your pre hospitalization diet on discharge., 08/19/23 13:14:00 EDT Allergies Bactrim Chocolate (facial swelling, hives) Cipro Primatene Mist Inhaler coconut (facial swelling, hives) codeine sulfamethoxazole Medications Please ask your primary doctor or pharmacist before taking any other medication not listed, including over the counter drugs, herbal medications, vitamins and or supplements as they may interact withyour home medications. What How Much When Instructions Last Dose Unchanged acetaminophen-hydrocodone (acetaminophen-hydrocodone 325 mg-7.5 mg oral tablet) 1 tab(s) by mouth Every 6 hours 08/19 @ 10am Unchanged albuterol (ProAir HFA MDI (90 mcg/ inh) inhalation aerosol) 2 puff(s) by inhalation Every 4 hours as needed for for wheezing not given Unchanged albuterol (Ventolin HFA MDI (90 mcg/ inh) inhalation aerosol) not given Unchanged cyclobenzaprine (Flexeril 10 mg oral tablet) 1 tab(s) by mouth Three (3) times a day as needed for for muscle spasm not given Unchanged DME (DME MISCellaneous) See instructions Please dispense Bud 2 sensors (2 total) as well as a Bud reader. Unchanged famotidine (famotidine 20 mg oral tablet) 1 tab(s) by mouth Two (2) times a day Duration: 5 Days not given Unchanged gabapentin (gabapentin 300 mg oral capsule) 2 cap by mouth Two (2) times a day 08/19 @ 8am Unchanged insulin glargine (Lantus Solostar Pen 100 units/ mL 3 mL Pen) 18 unit(s) Daily at bedtime 08/19 @ 1230am Unchanged lisinopril 10 Milligram by mouth Once a day 08/19 @ 8am Unchanged ondansetron (Zofran) 4 Milligram by mouth Every 6 hours 08/19 @ 10am What How Much When Comments Stop Taking varenicline (Chantix Continuing Month 1 mg oral tablet) 1 tab(s) by mouth Two (2) times a day Stop Taking varenicline (Chantix Starter Pack 0.5 mg-1 mg oral tablet) 1 tab(s) by mouth Two (2) times a day Please take this list to your next doctor s visit. Bring all medications you take, including over the counter medications, herbals and other supplements with you to your doctor s visit. Patients and families are reminded to discard old lists and to update any records with all medication providers or retail pharmacies. Education Materials Urinary Tract Infection, Adult A urinary tract infection (UTI) is an infection of any part of the urinary tract. The urinary tractincludes: The kidneys. The ureters. The bladder. The urethra. These organs make, store, and get rid of pee (urine) in the body. What are the causes? This is caused by germs (bacteria) in your genital area. These germs grow and cause swelling (inflammation) of your urinary tract. What increases the risk? You are more likely to develop this condition if: You have a small, thin tube (catheter) to drain pee. You cannot control when you pee or poop (incontinence). You are female, and: ? You use these methods to prevent : ? A medicine that kills sperm (spermicide). ? A device that blocks sperm (diaphragm). ? You have low levels of a female hormone (estrogen). ? You are . You have genes that add to your risk. You are sexually active. You take antibiotic medicines. You have trouble peeing because of: ? A prostate that is bigger than normal, if you are male. ? A blockage in the part of your body that drains pee from the bladder (urethra). ? A kidney stone. ? A nerve condition that affects your bladder (neurogenic bladder). ? Not getting enough to drink. ? Not peeing often enough. You have other conditions, such as: ? Diabetes. ? A weak disease-fighting system (immune system). ? Sickle cell disease. ? Gout. ? Injury of the spine. What are the signs or symptoms? Symptoms of this condition include: Needing to pee right away (urgently). Peeing often. Peeing small amounts often. Pain or burning when peeing. Blood in the pee. Pee that smells bad or not like normal. Trouble peeing. Pee that is cloudy. Fluid coming from the vagina, if you are female. Pain in the belly or lower back. Other symptoms include: Throwing up (vomiting). No urge to eat. Feeling mixed up (confused). Being tired and grouchy (irritable). A fever. Watery poop (diarrhea). How is this treated? This condition may be treated with: Antibiotic medicine. Other medicines. Drinking enough water. Follow these instructions at home: Medicines Take ycmo-iya-bcuxpfk and prescription medicines only as told by your doctor. If you were prescribed an antibiotic medicine, take it as told by your doctor. Do not stop taking it even if you start to feel better. General instructions Make sure you: ? Pee until your bladder is empty. ? Do not hold pee for a long time. ? Empty your bladder after sex. ? Wipe from front to back after pooping if you are a female. Use each tissue one time when you wipe. Drink enough fluid to keep your pee pale yellow. Keep all follow-up visits as told by your doctor. This is important. Contact a doctor if: You do not get better after 1 2 days. Your symptoms go away and then come back. Get help right away if: You have very bad back pain. You have very bad pain in your lower belly. You have a fever. You are sick to your stomach (nauseous). You are throwing up. Summary A urinary tract infection (UTI) is an infection of any part of the urinary tract. This condition is caused by germs in your genital area. There are many risk factors for a UTI. These include having a small, thin tube to drain pee and notbeing able to control when you pee or poop. Treatment includes antibiotic medicines for germs. Drink enough fluid to keep your pee pale yellow. This information is not intended to replace advice given to you by your health care provider. Make sure you discuss any questions you have with your health care provider. Document Released: 03/24/2009 Document Revised: 09/23/2019 Document Reviewed: 04/15/2019 [employer] Patient Education 2020 [employer] Additional Information VACCINATE! IT SAVES LIVES! Members of the community who have not yet received the COVID-19 vaccine and would like to receive it can visit one of [facility] vaccine clinics. There are many vaccine clinic locations within the [facility]. For locations and available times, please visit https://gettheshot.coronavirus.[place].gov/. It is important to note that some COVID mobile vaccine clinics are held outdoors and may be canceled in rainy or stormy conditions. To learn more about pediatric vaccinations (ages 5-11), we invite you to visit the [facility] webpage. [email or web address]://www.[email or web address]/pages/[email or web address]-Wjybr-[email or web address]-[email or web address] [email or web address] learn more about the COVID-19 vaccine, we invite you to visit the CDC website for a list of frequently asked questions.https://www.cdc.gov/coronavirus/2019-ncov/vaccines/faq.html [facility] Patient Portal Access Instructions: Stay connected with your healthcare team and access your personal medical information anytime with the [facility] Patient Portal. Please follow the directions below to create your [facility] account: 1.Access the email account you provided upon registration to the hospital/physician office.2.Look for an invitation email from [facility].3.Open the email and access the invitation link: AcceptInvitation to [facility].4.Fill in the required milton to create your account. To access your account, visit [email or web address]. Click the blue button labeled Access Patient Portal and then log in with the username and password that you created in the steps above. You will be able to view your test results, lab results, a summary of your visits, upcoming appointments and more. There is also a convenient messaging option where you can send secure messages to your p rovider. In addition, you will have the ability to download any documents or summaries to your computer and/or send the information securely to a physician. Remember that your healthcare information is confidential, so carefully consider who you will allowto register on the [facility] Patient Portal for access to your information. You can also access the [facility] Patient Portal on the [facility] gisela. Simply click on Patient Portal and then log into your account. If you would like to receive a full copy of your medical records, please contact the [facility] Medical Records Department by calling [phone], Friday through Friday between 8 a.m. and 4:30 p.m. HOW TO SAFELY DISPOSE OF PRESCRIPTION MEDICATIONS Please use one of the following methods to safely dispose of your unused medications. 1.Use a drug disposal kit: the drug disposal pouch allows you to safely discard your old and unuseddrugs. Ask your nurse to give you one when you are discharged.2.Visit a local take-back location: Many local pharmacies and police departments have programs that collect old and unwanted prescriptiondrugs. Call your local pharmacy or go to http://bit.ly/0G8Mj3b to find one close to you.3.Make use of household items: Use cat litter or old coffee grounds to dispose medications if other options arenot available. Mix your drugs with these household products, seal them in an airtight container andthrow it into the garbage. Call [facility]: [phone] to be sure your drugs can be disposed of in this way. Some medicines may require a different approach.4.Never flush your medications down the toilet. IF YOU HAVE BEEN PRESCRIBED AN OPIOID FOR PAIN If you have been prescribed an opioid (such as hydrocodone, oxycodone or morphine), it is critical to understand the possible side effects and risks of opioid pain medications. Even when taken as directed, opioids can have several side effects including: Tolerance, meaning you might need to take more of a medication for the same pain relief. Nausea, vomiting and/or constipation. Sleepiness, dizziness, dry mouth, confusion, depression or itching. Physical dependence, meaning you have withdrawal symptoms when a medication is stopped, can develop within a few days. KNOW YOUR RESPONSIBILITIES It is important to know exactly how much and how often to take the opioid pain medications you are prescribed. Never take opioids in higher amounts or more often than prescribed. Do not combine opioids with alcohol or other drugs that cause drowsiness, such as benzodiazepines, also known as benzos, including diazepam and alprazolam, muscle relaxants or sleep aids. Never sell or share prescription opioids. This is illegal. Store opioids in a secure place and out of reach of others (including children, family, friends and visitors). The last page of this document has been signed and retained as a CHART COPY. Signatures Patient Education Materials Urinary Tract Infection, Adult, Ueom-dz-Awse Medication Leaflets My discharge plan and instructions have been reviewed and explained to me and I,DERREK NADIA M understand my current condition and have read and understand these discharge instructions. I have received a written copy of the plan/instructions. If I have questions, I am aware that I should contact my doctor. Patient/Enrollment Services Dean Signature: Date/Time: Relationship to Patient: Witness Name/Signature: Date/Time: [facility]10-30-2023 Note ORIGINAL EXAMINATION: ONE XRAY VIEW OF THE CHEST 08/18/2023 4:23 pm COMPARISON: Chest radiograph 08/12/2023. HISTORY: ORDERING SYSTEM PROVIDED HISTORY: Reason for Exam: pain/fever FINDINGS: Body habitus obscures some detail. Stable cardiomediastinal silhouette. No large volume pleural effusion or pneumothorax. No focal consolidation. No definite acute osseous abnormality. IMPRESSION: No focal consolidation or edema. I have personally reviewed the images of this examination and agree with the resident's finding and interpretation. Interpreted by: Tyesha Cowan MD Preliminary Report By: Vipul Rausch Electronically signed By Tyesha Cowan MD Dictated Date: 08/18/2023 4:24:54 PM Prelim Date: 08/18/2023 4:26:13 PM Sign Date: 08/18/2023 4:50:09 PM Ordering Provider: [facility]10-30-2023 Progress note Author Nato Snyder [facility] August 18, 2023 11:27am Note Date/Time August 18, 2023 7 :50am [facility] Medical Records Department [address] [place] [address] Progress Note - Hospitalist 08/18/23 0749 MR#: [id number] Acct: [id number] Name: NADIA ANGLIN Rep #:[id number] : 1970 53 From: Nato Snyder DO PCP: Care Physician,No Primary Status :ADM IN Location: [address] Reason for Visit Reason for Visit: Diagnoses Sepsis, unspecified organism (08/12/23) Unspecified Escherichia coli [E. coli] as the cause of diseases classified elsewhere (08/12/23) Type 2 diabetes mellitus with other diabetic kidney complication (08/12/23) Encephalopathy, unspecified (08/12/23) Unspecified cirrhosis of liver (08/12/23) Pain in unspecified knee (08/12/23) Tubulo-interstitial nephritis, not specified as acute or chronic (08/12/23) Acute kidney failure, unspecified (08/12/23) Severe sepsis without septic shock (08/12/23) Severe sepsis with septic shock (08/12/23) Bacteremia (08/12/23) [facility] (current) use of insulin (08/12/23) Subjective Subjective Feeling better. More alert today. Upset with staff last night as she says they were swearing at her. Objective Data Objective Data Vital Signs: Vital Signs Temp Pulse Resp BP Pulse Ox O2 Del Method O2 Flow Rate 37.0 C 94 18 164/84 H 96 Room Air 4 08/18/23 05:07 08/18/23 05:07 08/18/23 05:07 08/18/23 05:07 08/18/23 05:07 08/18/23 05:07 08/16/23 07:00 Oxygen Flow Rate (L/min) 4 Oxygen Delivery Method Room Air Weight: 116.9 kg Body Mass Index (BMI) 39.2 Intake & Output: Intake and Output for Last 24 Hours 08/16/23 08/17/23 08/18/23 23:59 23:59 23:59 Intake Total 923.50 / 1023.50 440 / 440 120 / 120 Output Total 1400 / 1850 1750 / 1750 400 / 400 Balance -476.50 / -826.50 -1310 / -1310 -280 / -280 Lab / Micro Data 08/18/23 05:55 08/18/23 05:55 Labs: Laboratory Results - last 24 hr 08/17/23 05:46: Total Creatine Kinase 26 08/17/23 12:54: Urine Opiates Screen POSITIVE H, Urine Methadone Screen NEGATIVE, Ur Barbiturates Screen NEGATIVE, Ur Phencyclidine Scrn NEGATIVE, Ur Amphetamines Screen NEGATIVE, MDMA (Ecstasy) Screen NEGATIVE, U Benzodiazepines Scrn NEGATIVE, Urine Cocaine Screen NEGATIVE, U Cannabinoids Screen NEGATIVE, UrDrug Screen Comment 08/17/23 16:09: POC Glucose 205 H 08/17/23 21:32: POC Glucose 178 H 08/18/23 05:55: WBC 8.2, RBC 3.49 L, Hgb 9.6 L, Hct 30.4 L, MCV 87.1, MCH 27.5, MCHC 31.6 L, RDW Std Deviation 51.8 H, RDW Coeff of Frannie 16.3 H, Plt Count 82 L, MPV 10.5, Immature Gran % (Auto) 1.300 H, Neut % (Auto) 73.3 H, Lymph % (Auto) 15.1 L, Major % (Auto) 7.0, Eos % (Auto) 2.7, Baso % (Auto) 0.6, Absolute Neuts (auto) 6.0, Absolute Lymphs (auto) 1.24, Nucleated RBC % 0, Sodium 137, Potassium 4.0, Chloride 110 H, Carbon Dioxide 22.0, Anion Gap 5, BUN 23 H, Creatinine 0.77, Estim Creat Clear Calc 83.28, Est GFR (MDRD) Af Amer 100, Est GFR (MDRD) Non-Af 82, BUN/Creatinine Ratio 29.8 H, Glucose 141 H, Calcium 8.1 L 08/18/23 06:41: POC Glucose 137 H Micro: Microbiology 08/15/23 13:30 Blood Culture (Wb) - Anticubital Right Blood Culture - Preliminary Coag Negative Staph 08/15/23 13:35 Blood Culture (Wb) - Left Hand Blood Culture - Preliminary No growth in 48 hours. Radiography Diagnostic Testing: Radiology Impression Brain CT 08/17/23 11:59 IMPRESSION: Normal unenhanced CT scan of the brain. Electronically Signed: Aamir Glez MD at 13:17 EDT Reading Location ID and State: [place] [employer] , Service support , Knee X-Ray 08/17/23 12:25 IMPRESSION: Degenerative arthrosis. Electronically Signed: Aamir Glez MD at 13:14 EDT Reading Location ID and State: [place] [facility] [place] [employer] , Service support , Knee X-Ray 08/17/23 12:25 IMPRESSION: Moderate arthrosis with multiple calcified bodies. Electronically Signed: Aamir Glez MD at 13:13 EDT Reading Location ID and State: [place] / [place] [employer] , Service support , Rhythm Strip Rhythm Strip: Sinus Tach Rate: 110 Ectopy: None Physical Exam Const alert and no apparent distress HEENT head/scalp atraumatic and moist oral mucous membranes Resp normal respiratory effort, no retractions, no use of accessory muscles and clearto auscultation bilaterally Cardio regular rate, regular rhythm, S1 normal heart sound and S2 normal heart sound GI normal to inspection, nondistended, normoactive bowel sounds, soft to palpation,non-tender and non-distended Assessment & Plan Assessment/Plan (1) Sepsis: QUALIFIERS: Acute renal failure type: unspecified Sepsis acute organ dysfunction status: with acute organ dysfunction Sepsis type: sepsis due to unspecified organism Severe sepsis acute organ dysfunction type: acute renalfailure Severe sepsis shock status: without septic shock Qualified Code(s): A41.9 - Sepsis, unspecified organism; R65.20 - Severe sepsis without septic shock; N17.9 - Acute kidney failure, unspecified PLAN: POA SIRS: 3/4 (HR 124, RR 24, WBC 13.3 on admission at [facility]), qSOFA 2 (RR 24, BP w several SBP <100) 2/2 pyelonephritis Lactic acidosis may have been skewed given use of metformin. No documented hypotension, therefore, septic shock ruled out. (2) Pyelonephritis: PLAN: Through [facility]: CT showed left renal enlargement w perinephric and periureteral fat stranding but no evidence of acute urinary obstruction. Findings suggesting pyelonephritis. (additionally porcelain gallbladder) Follow up UCx from OSH thus far showing E >100 k E. coli, sensitivities pending. Continue CTX. (3) BREONNA (acute kidney injury): PLAN: Through [facility]: Creatinine was 1.09 on 06/15. Continue IVF. Monitor. (4) Encephalopathy: PLAN: Likely toxic from gabapentin and metabolic from sepsis and pyelonephritis Ammonia WNL. Head CT negative. UDS positive for opiates. As encephalopathy resolved, may resume gabapentin. (5) Bacteremia due to Escherichia coli: PLAN: BCID at OSH showing abnormality for E. coli and enterobacterales No direct blood cultures available in [facility] from OSH. BCx drawn on 08/16 showing 1/2 for GPC. May be contaminant. (6) Knee pain: PLAN: bilateral Benign exam. Knee xrays negative. CPK 26. PLAN: Plan Chronic conditions: * HTN: continue metoprolol. hold lisinopril given BREONNA * Diabetes mellitus with polyneuropathy: metformin held given BREONNA. Glargine 20 and SSI. Gabapentin dose cut back given BREONNA * tobacco abuse: nicotine patch if requested * cirrhosis: dc acetaminophen. 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 follow up with general surgery as outpt. DVT prophylaxis: Subcu heparin ordered Charges/Coding Visit Charges Inpatient E&M: 88372 Subs Hosp L2 08/18/23 1127 <Electronically signed by Nato Snyder DO> Cosigner Signature (if applicable): CC: ~ Signed [facility] Work Phone: [phone]) 900-458410-29-2023 Progress note Author Nato Snyder [facility] August 17, 2023 1:49pm Note Date/Time August 17, 2023 8 :04am [facility] Medical Records Department [address] [place] [id number] Progress Note - Hospitalist 08/17/23 0800 MR#: [id number] Acct: [id number] Name: NADIA ANGLIN Rep #:[id number] : 1970 53 From: Nato Snyder DO PCP: Care Physician,No Primary Status :ADM IN Location: [place] [address] Reason for Visit Reason for Visit: Diagnoses Sepsis, unspecified organism (08/12/23) Unspecified Escherichia coli [E. coli] as the cause of diseases classified elsewhere (08/12/23) Type 2 diabetes mellitus with other diabetic kidney complication (08/12/23) Encephalopathy, unspecified (08/12/23) Unspecified cirrhosis of liver (08/12/23) Tubulo-interstitial nephritis, not specified as acute or chronic (08/12/23) Acute kidney failure, unspecified (08/12/23) Severe sepsis without septic shock (08/12/23) Severe sepsis with septic shock (08/12/23) Bacteremia (08/12/23) [facility] (current) use of insulin (08/12/23) Subjective Subjective Complaining of knee pain. Objective Data Objective Data Vital Signs: Vital Signs Temp Pulse Resp BP Pulse Ox O2 Del Method O2 Flow Rate 36.9 C 98 16 146/86 H 94 Room Air 4 08/17/23 02:01 08/17/23 02:01 08/17/23 02:01 08/17/23 02:01 08/17/23 02:01 08/17/23 02:01 08/16/23 07:00 Oxygen Flow Rate (L/min) 4 Oxygen Delivery Method Room Air Weight: 121.2 kg Body Mass Index (BMI) 40.6 Intake & Output: Intake and Output for Last 24 Hours 08/15/23 08/16/23 08/17/23 23:59 23:59 23:59 Intake Total 1827.5 / 1827.5 923.50 / 1023.50 320 / 320 Output Total 1700 / 1700 1400 / 1850 850 / 850 Balance 127.5 / 127.5 -476.50 / -826.50 -530 / -530 Lab / Micro Data 08/17/23 05:46 08/17/23 05:46 Labs: Laboratory Results - last 24 hr 08/16/23 08:10: Sodium 137, Potassium 4.6, Chloride 112 H, Carbon Dioxide 19.0 L, Anion Gap 6, BUN 36 H, Creatinine 1.33 H, Estim Creat Clear Calc 48.21, Est GFR (MDRD) Af Amer 53 L, Est GFR (MDRD) Non-Af 44 L, BUN/Creatinine Ratio 27.1 H, Glucose 151 H, Calcium 8.0 L 08/17/23 05:46: WBC 8.5, RBC 3.34 L, Hgb 9.3 L, Hct 29.5 L, MCV 88.3, MCH 27.8, MCHC 31.5 L, RDW Std Deviation 52.3 H, RDW Coeff of Frannie 16.3 H, Plt Count 75 L, MPV 10.9, Immature Gran % (Auto) 2.100 H, Neut % (Auto) 71.4 H, Lymph % (Auto) 15.0 L, Major % (Auto) 9.5, Eos % (Auto) 1.5, Baso % (Auto) 0.5, Absolute Neuts (auto) 6.1, Absolute Lymphs (auto) 1.27, Nucleated RBC % 0, Sodium 136, Potassium 4.3, Chloride 112 H, Carbon Dioxide 17.0 L, Anion Gap 7, BUN 31 H, Creatinine 1.01, Estim Creat Clear Calc 63.49, Est GFR (MDRD) Af Amer 73, Est GFR (MDRD) Non-Af 60, BUN/Creatinine Ratio 30.7 H, Glucose 140 H, Calcium 8.2 L Micro: Microbiology 08/15/23 13:30 Blood Culture (Wb) - Anticubital Right Blood Culture - Preliminary Radiography Diagnostic Testing: Radiology Impression Chest X-Ray 08/16/23 08:05 IMPRESSION: Normal x-ray examination of the chest. Electronically Signed: Jose Goyal MD at 9:17 EDT Reading Location ID and State: [facility] / [place] , Service support , Rhythm Strip Rhythm Strip: Sinus Tach Rate: 110 Ectopy: None Physical Exam Const Constitutional Narrative: up in bed. confused, but improved from 08/16. Saying her knee hurt, saying thisone indicating her left. I asked her to say the side twice, but did not say left but this one again. Resp normal respiratory effort, no retractions, no use of accessory muscles and clearto auscultation bilaterally Cardio regular rate, regular rhythm, S1 normal heart sound and S2 normal heart sound GI normal to inspection, nondistended, normoactive bowel sounds Extremity Extremity Narrative: bilateral knee pain. No effusion. Not painful when distracted. Assessment & Plan Assessment/Plan (1) Sepsis: QUALIFIERS: Acute renal failure type: unspecified Sepsis acute organ dysfunction status: with acute organ dysfunction Sepsis type: sepsis due to unspecified organism Severe sepsis acute organ dysfunction type: acute renalfailure Severe sepsis shock status: without septic shock Qualified Code(s): A41.9 - Sepsis, unspecified organism; R65.20 - Severe sepsis without septic shock; N17.9 - Acute kidney failure, unspecified PLAN: POA SIRS: 3/4 (HR 124, RR 24, WBC 13.3 on admission at [facility]), qSOFA 2 (RR 24, BP w several SBP <100) 2/2 pyelonephritis Lactic acidosis may have been skewed given use of metformin. No documented hypotension, therefore, septic shock ruled out. (2) Pyelonephritis: PLAN: Through [facility]: CT showed left renal enlargement w perinephric and periureteral fat stranding but no evidence of acute urinary obstruction. Findings suggesting pyelonephritis. (additionally porcelain gallbladder) Follow up UCx from OSH thus far showing E >100 k E. coli, sensitivities pending. Continue CTX. (3) BREONNA (acute kidney injury): PLAN: Through [facility]: Creatinine was 1.09 on 06/15. Continue IVF. Monitor. (4) Encephalopathy: PLAN: ongoing Continue to hold gabapentin for somnolence. Has not taken cyclobenzaprine in days, so not the culprit, but will discontinue. DC Conway. Ammonia WNL Check head CT, UDS. (5) Bacteremia due to Escherichia coli: PLAN: BCID at OSH showing abnormality for E. coli and enterobacterales No direct blood cultures available in [facility] from OSH. BCx drawn on 08/16 showing 1/2 for GPC. May be contaminant. (6) Knee pain: PLAN: bilateral Benign exam. Check xrays. Check CPK. PLAN: Plan Chronic conditions: * HTN: continue metoprolol. hold lisinopril given BREONNA * Diabetes mellitus with polyneuropathy: metformin held given BREONNA. Glargine [address]SI. Gabapentin dose cut back given BREONNA * tobacco abuse: nicotine patch if requested * cirrhosis: dc acetaminophen. 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 follow up with general surgery as outpt. DVT prophylaxis: Subcu heparin ordered Charges/Coding Visit Charges Inpatient E&M: 09699 Subs Hosp L2 08/17/23 1206 <Electronically signed by Nato Snyder DO> Cosigner Signature (if applicable): CC: ~ Signed ADDENDUM by Dr. Nato Snyder DO on 08/17/23 at [address] negative. Knee xrays negative. UDS + opiates. Pt did last receive Conway around 0202. 08/17/23 1349<Electronically signed by Nato Snyder DO> Cosigner Signature (if applicable): cc: ~* Signed [facility] Work Phone: 1(708) 413-242010-28-2023 Note. MICRO - Microbiology PROCEDURE: Blood Culture (bacterial) [*1] SOURCE: Blood BODY SITE: COLLECTED DATE/TIME: 08/12/2023 13:49 EDT RECEIVED DATE/TIME: 08/12/2023 18:57 EDT START DATE/TIME: 08/12/2023 18:58 EDT FREE TEXT SOURCE: AMENDED REPORTS Amended Report [] Verified Date/Time/Personnel: 08/16/2023 12:37 EDT Escherichia coli ESBL Isolated from anaerobe bottle only. Refer to previous culture for susceptibility. [phone] Extended-Spectrum B-Lactamase isolate may be clinically resistant to therapy with Penicillins, Cephalosporinsor Aztreonam despite apparent in vitro susceptibility to some of these agents. Use of Imipenem is currently restricted to Infectious Disease /Intensivists. Please consult Physicians accordingly. FINAL REPORTS Final Report [] Verified Date/Time/Personnel: 08/16/2023 12:37 EDT Escherichia coli Isolated from anaerobe bottle only. Refer to previous culture for susceptibility. [id number] PRELIMINARY REPORTS Preliminary Report [] Verified Date/Time/Personnel: 08/16/2023 12:35 EDT Escherichia coli Isolated from anaerobe bottle only. FREDIS to follow Preliminary Report [] Verified Date/Time/Personnel: 08/12/2023 19:59 EDT Culture has been received in lab and is no growth to date. Routine cultures are held for 5 days. STAINS GSANA [] Verified Date/Time/Personnel: 08/15/2023 03:47 EDT Gram Negative Rods Performing Locations *1: This test was performed at: [address], [address] [place] [address] ([place])08-16-2023 Note. MICRO - Microbiology PROCEDURE: Blood Culture (bacterial) [*1] SOURCE: Blood BODY SITE: COLLECTED DATE/TIME: 08/12/2023 13:49 EDT RECEIVED DATE/TIME: 08/12/2023 18:57 EDT START DATE/TIME: 08/12/2023 18:58 EDT FREE TEXT SOURCE: AMENDED REPORTS Amended Report [] Verified Date/Time/Personnel: 08/16/2023 12:36 EDT Escherichia coli ESBL Isolated from aerobe and anaerobe bottles. Extended-Spectrum B-Lactamase isolate may be clinically resistant to therapy with Penicillins, Cephalosporinsor Aztreonam despite apparent in vitro susceptibility to some of these agents. Use of Imipenem is currently restricted to Infectious Disease /Intensivists. Please consult Physicians accordingly. FINAL REPORTS Final Report [] Verified Date/Time/Personnel: 08/15/2023 07:47 EDT Escherichia coli ESBL Isolated from aerobe bottle only. Extended-Spectrum B-Lactamase isolate may be clinically resistant to therapy with Penicillins, Cephalosporinsor Aztreonam despite apparent in vitro susceptibility to some of these agents. Use of Imipenem is currently restricted to Infectious Disease /Intensivists. Please consult Physicians accordingly. PRELIMINARY REPORTS Preliminary Report [] Verified Date/Time/Personnel: 08/14/2023 09:46 EDT Escherichia coli Isolated from aerobe bottle only. FREDIS to follow Preliminary Report [] Verified Date/Time/Personnel: 08/12/2023 19:59 EDT Culture has been received in lab and is no growth to date. Routine cultures are held for 5 days. STAINS GSANA [] Verified Date/Time/Personnel: 08/15/2023 10:08 EDT Gram Negative Rods GSAER [] Verified Date/Time/Personnel: 08/13/2023 07:42 EDT Gram Negative Rods SUSCEPTIBILITY RESULTS Escherichia coli ESBL Antibiotic FREDIS Dilut FREDIS Inter Amikacin <=16 Susceptible Amoxicillin/ 16/8 Resistant Clavulanate Ampicillin >16 Resistant Ampicillin/ >16/8 Resistant Sulbactam Aztreonam >16 Resistant Cefazolin >16 Resistant Cefotaxime >32 Suspected ESBL Snaker MICRO - Microbiology SUSCEPTIBILITY RESULTS Escherichia coli ESBL Antibiotic FREDIS Dilut FREDIS Inter Ceftriaxone >32 Suspected ESBL Snaker Cefuroxime >16 Resistant Ciprofloxacin >2 Resistant Ertapenem <=0.5 Susceptible Gentamicin <=2 Susceptible Imipenem <=1 Susceptible Levofloxacin >4 Resistant Meropenem <=1 Susceptible Minocycline <=4 Susceptible Moxifloxacin >4 Resistant Tetracycline >8 Resistant Trimethoprim/ >2/38 Resistant Sulfa Performing Locations *1: This test was performed at: [facility], [address] [place] [address], [address] , [facility] ([place])08-16-2023 Progress note Author Nato Snyder [facility] August 16, 2023 10:04am Note Date/Time August 16, 2023 7 :28am [facility] Medical Records Department [address] [place] [address] Progress Note - Hospitalist 08/16/23722 MR#: [id number] Acct: [id number] Name: NADIA ANGLIN Rep #:[id number] : 1970 53 From: Nato Snyder DO PCP: Care Physician,No Primary Status :ADM IN Location: ICU [place] [address] Reason for Visit Reason for Visit: Diagnoses Sepsis, unspecified organism (08/12/23) Unspecified Escherichia coli [E. 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 Step-daughter present and confirms that the patient is not at baseline. Objective Data Objective Data Vital Signs: Vital Signs Temp Pulse Resp BP Pulse Ox O2 Del Method O2 Flow Rate 36.0 C L 110 H 19 H 148/79 H 95 Nasal Cannula 4 08/16/23 07:00 08/16/23 07:00 08/16/23 07:00 08/16/23 07:00 08/16/23 07:00 08/16/23 07:00 08/16/23 07:00 Oxygen Flow Rate (L/min) 4 Oxygen Delivery Method Nasal Cannula Weight: 121.2 kg Body Mass Index (BMI) 40.6 Intake & Output: Intake and Output for Last 24 Hours 08/14/23 08/15/23 08/16/23 23:59 23:59 23:59 Intake Total 3022.5 / 3022.5 1827.5 / 1827.5 120 / 120 Output Total 1325 / 1325 1700 / 1700 700 / 700 Balance 1697.5 / 1697.5 127.5 / 127.5 -580 / -580 Lab / Micro Data 08/15/23 04:00 08/16/23 08:10 Labs: Laboratory Results - last 24 hr 08/15/23 08:08: POC Glucose 121 H 08/15/23 23:00: Ammonia < 10.0 L Rhythm Strip Rhythm Strip: Sinus Tach Rate: 110 Ectopy: None Physical Exam Const no apparent distress Constitutional Narrative: groggy. Resp normal respiratory effort, no retractions, no use of accessory muscles and clearto auscultation bilaterally Cardio regular rate, regular rhythm, S1 normal heart sound and S2 normal heart sound GI normal to inspection, nondistended, normoactive bowel sounds and soft to palpation Assessment & Plan Assessment/Plan (1) Sepsis: QUALIFIERS: Acute renal failure type: unspecified Sepsis acute organ dysfunction status: with acute organ dysfunction Sepsis type: sepsis due to unspecified organism Severe sepsis acute organ dysfunction type: acute renalfailure Severe sepsis shock status: without septic shock Qualified Code(s): A41.9 - Sepsis, unspecified organism; R65.20 - Severe sepsis without septic shock; N17.9 - Acute kidney failure, unspecified PLAN: POA SIRS: 3/4 (HR 124, RR 24, WBC 13.3 on admission at [facility]), qSOFA 2 (RR 24, BP w several SBP <100) 2/2 pyelonephritis Lactic acidosis may have been skewed given use of metformin. No documented hypotension, therefore, septic shock ruled out. (2) Pyelonephritis: PLAN: Through [facility]: CT showed left renal enlargement w perinephric and periureteral fat stranding but no evidence of acute urinary obstruction. Findings suggesting pyelonephritis. (additionally porcelain gallbladder) Follow up UCx from OSH thus far showing E >100 k E. coli, sensitivities pending. Continue CTX. (3) BREONNA (acute kidney injury): PLAN: Through [facility]: Creatinine was 1.09 on 06/15. Continue IVF. Monitor. (4) Encephalopathy: PLAN: concern for polypharmacy hold gabapentin for somnolence. If persists may need additional testing. Ammonia WNL Check UDS, head CT. (5) Bacteremia due to Escherichia coli: PLAN: BCID at OSH showing abnormality for E. coli and enterobacterales BCx drawn and pending. No direct blood cultures available in [facility] from OSH. PLAN: Plan Chronic conditions: * HTN: continue metoprolol. hold lisinopril given BREONNA * Diabetes mellitus with polyneuropathy: metformin held given BREONNA. Glargine 20 and SSI. Gabapentin dose cut back given BREONNA * tobacco abuse: nicotine patch if requested * cirrhosis: dc acetaminophen. 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 follow up with general surgery as outpt. DVT prophylaxis: Subcu heparin ordered Charges/Coding Visit Charges Inpatient E&M: 96059 Subs Hosp L2 08/16/23 1004 <Electronically signed by Nato Snyder DO> Cosigner Signature (if applicable): CC: ~ Signed [facility] Work Phone: [phone] 669-311210-27-2023 Consult note Author Ike Sams [facility] August 15, 2023 1:20pm Note Date/Time August 15, 2023 1 :20pm [facility] Medical Records Department [address] [place] [address] Consultation - Infectious Dx 08/15/23 1317 MR#: [id number] Acct: [id number] Name: NADIA ANGLIN Rep #:[id number] : 1970 53 From: Ike raman MD PCP: Care Physician,No Primary Status :ADM IN [facility] Assessment & Plan Assessment/Plan (1) Encephalopathy: (2) Pyelonephritis: (3) Sepsis: QUALIFIERS: Sepsis type: sepsis due to unspecified organism Sepsis acute organ dysfunction status: with acute organ dysfunction Severe sepsis acute organ dysfunction type: acute renal failure Acute renal failure type: unspecified Severe sepsis shock status: without septic shock Qualified Code(s): A41.9 - Sepsis, unspecified organism; R65.20 - Severe sepsis without septic shock; N17.9 - Acute kidney failure, unspecified PLAN: sepsis due to esbl ecoli bacteremia from pyelo - on meropenem, BREONNA improving, no stone/hydro/abscess seen on kidney imaging. Reviewed [facility] records. Will check repeat bcx. Will follow, thank you (4) Cirrhosis of liver: QUALIFIERS: Hepatic cirrhosis type: unspecified hepatic cirrhosis Ascites presence: without ascites Qualified Code(s): K74.60 - Unspecified cirrhosis of liver (5) Bacteremia due to Escherichia coli: HPI Consult Data Date of Consult: 08/15/23 HPI Narrative Reason for Consultation: pyelo HPI Narrative: NADIA ANGLIN, is a 53 F who presented to [facility] then [facility] decreased UOP, progressive confusion, chills, nausea. Per family, had been dealing with uti for a few weeks without improvement. Pt c/o lower back pain. Admitted here on meropenem. Full ROS performed and neg except as noted above. [facility] Medical History Arthritis Asthma Atypical chest pain Chronic back pain Chronic headaches Depression Diabetes Hypertension Left knee pain Neuropathy Obesity Psoriasis Psoriatic arthritis Right knee DJD Spinal stenosis Home Medications albuterol sulfate 2.5 mg/3 mL (0.083 %) solution for nebulization 2.5 mg inhalation Q4H PRN 07/12/22 [History Last Taken Unknown] albuterol sulfate 90 mcg/actuation aerosol inhaler 2 puff inhalation Q6H PRN asthma 07/12/22 [History Last Taken Unknown] cyclobenzaprine 10 mg tablet 10 mg PO TID PRN 07/12/22 [History Last Taken Unknown] gabapentin 600 mg tablet 600 mg PO BID back pain 07/12/22 [History Last Taken 08/12/23 21:00] hydrocodone 7.5 mg-acetaminophen 325 mg tablet 1 tab PO Q6H PRN back pain 07/12/22 [History Last Taken 08/12/23 21:00] metformin 500 mg tablet 500 mg PO BID diabetes 07/12/22 [History Last Taken Unknown] metoprolol tartrate 25 mg tablet 25 mg PO PRN high blood pressure 07/12/22 [History Last Taken Unknown] insulin glargine 100 unit/mL (3 mL) subcutaneous pen (Lantus Solostar U-100 Insulin) 20 unit subcut QPM diabetes 05/28/23 [History Last Taken Unknown] omeprazole 20 mg tablet,delayed release 20 mg PO BID PRN 05/28/23 [History Last Taken Unknown] lisinopril 10 mg tablet 10 mg PO DAILY blood pressure 08/12/23 [History Last Taken Unknown] loratadine 10 mg tablet 10 mg PO DAILY PRN allergies 08/12/23 [History Last Taken Unknown] Allergy/AdvReac Type Severity Reaction Status Date / Time coconut Allergy Severe Anaphylaxis Verified 05/28/23 10:59 erythromycin base Allergy Intermediate Other Verified 05/28/23 10:59 sulfamethoxazole Allergy Intermediate Other Verified 05/28/23 10:59 codeine Allergy Unknown unknown Verified 05/28/23 10:59 epinephrine Allergy Unknown unknown Verified 05/28/23 10:59 [From Primatene Mist] Family History Father CAD (coronary artery disease) Myocardial infarction, Onset Age: 62 Other Arthritis CVA (cerebral vascular accident) Cancer Hypertension Surgical History History of section Hx of tubal ligation Social History household members: spouse Smoking Status: Current every day smoker tobacco type: cigarettes alcohol intake: current alcohol intake frequency: holidays/special occasions only substance use type: does not use caffeine: Yes Type: coffee Number of servings: 1 Physical Exam Const alert, oriented x3 and no apparent distress General Appearance: lethargic HEENT normocephalic and head/scalp atraumatic Eyes PERRL and EOMs intact bilaterally Neck supple and No nodes Resp normal air movement and clear to auscultation bilaterally Cardio Rate: tachycardic GI soft to palpation, non-tender and non-distended Extremity General Extremity: edema Skin no rashes or lesions noted Neuro CN's II-XII intact bilaterally Lab / Micro Data Attestation: I reviewed the patient's lab results. 08/15/23 04:00 08/15/23 04:00 Labs: Laboratory Results - last 24 hr 08/14/23 21:21: POC Glucose 148 H 08/15/23 04:00: WBC 8.8, RBC 3.44 L, Hgb 9.5 L, Hct 30.0 L, MCV 87.2, MCH 27.6, MCHC 31.7 L, RDW Std Deviation 50.8 H, RDW Coeff of Frannie 15.9 H, Plt Count 82 L, MPV 10.2, Immature Gran % (Auto) 1.700 H, Neut % (Auto) 79.6 H, Lymph % (Auto) 9.9 L, Major % (Auto) 7.0, Eos % (Auto) 1.1, Baso % (Auto) 0.7, Absolute Neuts (auto) 7.0, Absolute Lymphs (auto) 0.87, Nucleated RBC % 0, Differential CommentSCANNED, Sodium 134 L, Potassium 4.3, Chloride 107, Carbon Dioxide 20.0 L, AnionGap 7, BUN 45 H, Creatinine 2.37 H, Estim Creat Clear Calc 27.06, Est GFR (MDRD)Af Amer 27 L, Est GFR (MDRD) Non-Af 23 L, BUN/Creatinine Ratio 19.0, Glucose 134H, Calcium 8.2 L 08/15/23 08:08: POC Glucose 121 H Rhythm Strip Rhythm Strip: Sinus Tach Rate: 110 Ectopy: None 08/15/23 1320 <Electronically signed by Ike Sams MD> Cosigner Signature (if applicable): CC: Dr. Kamla Jimenez DO; Dr. Ike Sams MD; No Primary Care Physician~ Signed [facility] Work Phone: [phone] 974-755510-27-2023 Progress note Author Nato Snyder [facility] August 15, 2023 10:40am Note Date/Time August 15, 2023 6 :55am [facility] Medical Records Department [address] [place] [address] Progress Note - Hospitalist 08/15/23 0654 MR#: [id number] Acct: [id number] Name: NADIA ANGLIN Rep #:[id number] : 1970 53 From: Nato Snyder DO PCP: Care Physician,No Primary Status :ADM IN Location: ICU ICU-1 Reason for Visit Reason for Visit: Diagnoses Sepsis, unspecified organism (08/12/23) Type 2 diabetes mellitus with other diabetic kidney complication (08/12/23) Unspecified cirrhosis of liver (08/12/23) Tubulo-interstitial nephritis, not specified as acute or chronic (08/12/23) Acute kidney failure, unspecified (08/12/23) Severe sepsis without septic shock (08/12/23) Severe sepsis with septic shock (08/12/23) 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 Has been in bed urinating in the bed. No known individual who may have provided her illicit substance, though there was a neice yesterday, buthad no belongings with her. Objective Data Objective Data Vital Signs: Vital Signs Temp Pulse Resp BP Pulse Ox O2 Del Method 36.5 C L 104 H 16 104/48 L 94 Room Air 08/15/23 02:00 08/15/23 02:00 08/15/23 02:00 08/15/23 02:00 08/15/23 02:00 08/15/23 02:00 Oxygen Delivery Method Room Air Weight: 119.1 kg Body Mass Index (BMI) 39.9 Intake & Output: Intake and Output for Last 24 Hours 08/13/23 08/14/23 08/15/23 23:59 23:59 23:59 Intake Total 4402.5 / 4402.5 3022.5 / 3022.5 1030 / 1030 Output Total 500 / 500 1325 / 1325 100 / 100 Balance 3902.5 / 3902.5 1697.5 / 1697.5 930 / 930 Lab / Micro Data 08/15/23 04:00 08/15/23 04:00 Labs: Laboratory Results - last 24 hr 08/14/23 21:21: POC Glucose 148 H 08/15/23 04:00: WBC 8.8, RBC 3.44 L, Hgb 9.5 L, Hct 30.0 L, MCV 87.2, MCH 27.6, MCHC 31.7 L, RDW Std Deviation 50.8 H, RDW Coeff of Frannie 15.9 H, Plt Count 82 L, MPV 10.2, Immature Gran % (Auto) 1.700 H, Neut % (Auto) 79.6 H, Lymph % (Auto) 9.9 L, Major % (Auto) 7.0, Eos % (Auto) 1.1, Baso % (Auto) 0.7, Absolute Neuts (auto) 7.0, Absolute Lymphs (auto) 0.87, Nucleated RBC % 0, Differential CommentSCANNED, Sodium 134 L, Potassium 4.3, Chloride 107, Carbon Dioxide 20.0 L, AnionGap 7, BUN 45 H, Creatinine 2.37 H, Estim Creat Clear Calc 27.06, Est GFR (MDRD)Af Amer 27 L, Est GFR (MDRD) Non-Af 23 L, BUN/Creatinine Ratio 19.0, Glucose 134H, Calcium 8.2 L Rhythm Strip Rhythm Strip: Sinus Tach Rate: 110 Ectopy: None Physical Exam Const no apparent distress Orientation / Consciousness: confused Resp normal respiratory effort, no retractions, no use of accessory muscles and clearto auscultation bilaterally Cardio regular rate, regular rhythm, S1 normal heart sound and S2 normal heart sound GI normal to inspection, nondistended, normoactive bowel sounds, soft to palpation,non-tender and non-distended Assessment & Plan Assessment/Plan (1) Sepsis: QUALIFIERS: Acute renal failure type: unspecified Sepsis acute organ dysfunction status: with acute organ dysfunction Sepsis type: sepsis due to unspecified organism Severe sepsis acute organ dysfunction type: acute renalfailure Severe sepsis shock status: without septic shock Qualified Code(s): A41.9 - Sepsis, unspecified organism; R65.20 - Severe sepsis without septic shock; N17.9 - Acute kidney failure, unspecified PLAN: POA SIRS: 3/4 (HR 124, RR 24, WBC 13.3 on admission at [facility]), qSOFA 2 (RR 24, BP w several SBP <100) 2/2 pyelonephritis Lactic acidosis may have been skewed given use of metformin. No documented hypotension, therefore, septic shock ruled out. (2) Pyelonephritis: PLAN: Through [facility]: CT showed left renal enlargement w perinephric and periureteral fat stranding but no evidence of acute urinary obstruction. Findings suggesting pyelonephritis. (additionally porcelain gallbladder) Follow up UCx from OSH thus far showing E >100 k E. coli, sensitivities pending. Continue CTX. (3) BREONNA (acute kidney injury): PLAN: Through [facility]: Creatinine was 1.09 on 06/15. Continue IVF. Monitor. (4) Encephalopathy: PLAN: concern for polypharmacy hold gabapentin for somnolence. If persists may need additional testing. PLAN: Plan Chronic conditions: * HTN: continue metoprolol. hold lisinopril given BREONNA * Diabetes mellitus with polyneuropathy: metformin held given BREONNA. Glargine 20 and SSI. Gabapentin dose cut back given BREONNA * tobacco abuse: nicotine patch if requested * cirrhosis: dc acetaminophen. 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 follow up with general surgery as outpt. DVT prophylaxis: Subcu heparin ordered Charges/Coding Visit Charges Inpatient E&M: 22326 Subs Hosp L2 08/15/23 1040 <Electronically signed by Nato Snyder DO> Cosigner Signature (if applicable): CC: ~ Signed [facility] Work Phone: [phone] Progress note Author Nato Snyder [facility] August 14, 2023 12:50pm Note Date/Time August 14, 2023 7 :18am [facility] Medical Records Department [address] [place] [address] Progress Note - Hospitalist 08/14/23711 MR#: [id number] Acct: [id number] Name: NADIA ANGLIN Rep #:[id number] : 1970 53 From: Nato Snyder DO PCP: Care Physician,No Primary Status :ADM IN [facility] Reason for Visit Reason for Visit: Diagnoses Sepsis, unspecified organism (08/12/23) Type 2 diabetes mellitus with other diabetic kidney complication (08/12/23) Unspecified cirrhosis of liver (08/12/23) Tubulo-interstitial nephritis, not specified as acute or chronic (08/12/23) Acute kidney failure, unspecified (08/12/23) Severe sepsis without septic shock (08/12/23) Severe sepsis with septic shock (08/12/23) [facility] (current) use of insulin (08/12/23) Subjective Subjective Still tired, but feeling better. Objective Data Objective Data Vital Signs: Vital Signs Temp Pulse Resp BP Pulse Ox O2 Del Method 36.4 C L 110 H 18 111/54 L 94 Room Air 08/14/23 02:00 08/14/23 02:00 08/14/23 02:00 08/14/23 02:00 08/14/23 02:00 08/14/23 02:00 Oxygen Delivery Method Room Air Weight: 119.8 kg Body Mass Index (BMI) 40.1 Intake & Output: Intake and Output for Last 24 Hours 08/12/23 08/13/23 08/14/23 23:59 23:59 23:59 Intake Total 4402.5 / 4402.5 930 / 930 Output Total 200 / 200 500 / 500 525 / 525 Balance -200 / -200 3902.5 / 3902.5 405 / 405 Lab / Micro Data 08/14/23 03:55 08/14/23 03:55 Labs: Laboratory Results - last 24 hr 08/13/23 07:24: Hepatitis A IgM Ab Negative, Hep Bs Antigen Negative, Hep B CoreIgM Ab Negative, Hepatitis C Ab (EIA) Non Reactive, Hep C Ab Comment Comment 08/13/23 07:44: POC Glucose 135 H 08/13/23 10:25: Lactic Acid 5.0 H* 08/13/23 11:09: POC Glucose 127 H 08/13/23 16:56: POC Glucose 140 H 08/13/23 20:55: POC Glucose 119 H 08/14/23 03:55: WBC 11.0, RBC 3.37 L, Hgb 9.4 L, Hct 30.0 L, MCV 89.0, MCH 27.9,MCHC 31.3 L, RDW Std Deviation 50.6 H, RDW Coeff of Frannie 15.5 H, Plt Count 73 L, MPV 10.8, Immature Gran % (Auto) 1.900 H, Neut % (Auto) 82.6 H, Lymph % (Auto) 5.3 L, Major % (Auto) 9.1, Eos % (Auto) 0.4, Baso % (Auto) 0.7, Absolute Neuts (auto) 9.1 H, Absolute Lymphs (auto) 0.58 L, Nucleated RBC % 0, Platelet Estimate MOD DEC, Anisocytosis 1+, Sodium 130 L, Potassium 4.9, Chloride 102, Carbon Dioxide 18.0 L, Anion Gap 10, BUN 41 H, Creatinine 3.27 H, Estim Creat Clear Calc 19.61, Est GFR (MDRD) Af Amer 19 L, Est GFR (MDRD) Non-Af 16 L, BUN/Creatinine Ratio 12.5, Glucose 147 H, Calcium 8.0 L Radiography Diagnostic Testing: Radiology Impression Abdomen Ultrasound 08/13/23 07:06 IMPRESSION: Hepatomegaly and heterogeneous echotexture of the liver. Splenomegaly. Small gallstone seen in the neck of the gallbladder. Electronically Signed: Jerel Newman MD at 10:35 EDT , Rhythm Strip Rhythm Strip: Sinus Tach Rate: 110 Ectopy: None Physical Exam Const alert and no apparent distress HEENT head/scalp atraumatic and moist oral mucous membranes Resp normal respiratory effort, no retractions, no use of accessory muscles and clearto auscultation bilaterally Cardio regular rate, regular rhythm, S1 normal heart sound and S2 normal heart sound GI normal to inspection, nondistended, normoactive bowel sounds, soft to palpation,non-tender and non-distended Assessment & Plan Assessment/Plan (1) Sepsis: QUALIFIERS: Acute renal failure type: unspecified Sepsis acute organ dysfunction status: with acute organ dysfunction Sepsis type: sepsis due to unspecified organism Severe sepsis acute organ dysfunction type: acute renalfailure Severe sepsis shock status: without septic shock Qualified Code(s): A41.9 - Sepsis, unspecified organism; R65.20 - Severe sepsis without septic shock; N17.9 - Acute kidney failure, unspecified PLAN: POA SIRS: 3/4 (HR 124, RR 24, WBC 13.3 on admission at [facility]), qSOFA 2 (RR 24, BP w several SBP <100) 2/2 pyelonephritis Lactic acidosis may have been skewed given use of metformin. No documented hypotension, therefore, septic shock ruled out. (2) Pyelonephritis: PLAN: Through [facility]: CT showed left renal enlargement w perinephric and periureteral fat stranding but no evidence of acute urinary obstruction. Findings suggesting pyelonephritis. (additionally porcelain gallbladder) Follow up UCx from OSH thus far showing E >100 k E. coli, sensitivities pending. Continue CTX. (3) BREONNA (acute kidney injury): PLAN: Through [facility]: Creatinine was 1.09 on 06/15. Continue IVF. Monitor. PLAN: Plan Chronic conditions: * HTN: continue metoprolol. hold lisinopril given BREONNA * Diabetes mellitus with polyneuropathy: metformin held given BREONNA. Glargine 20 and SSI. Gabapentin dose cut back given BREONNA * tobacco abuse: nicotine patch if requested * cirrhosis: dc acetaminophen. 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 follow up with general surgery as outpt. DVT prophylaxis: Subcu heparin ordered Transfer to [facility]. Charges/Coding Visit Charges Inpatient E&M: 54689 Subs Hosp L2 08/14/23 0815 <Electronically signed by Nato Snyder DO> Cosigner Signature (if applicable): CC: ~ Signed ADDENDUM by Dr. Nato Snyder, on 08/14/23 at 1250 Addendum Culture showing ESBL E. coli. Change Abx back to meropenem. Consult ID. 08/14/23 [id number]<Electronically signed by Nato Snyder DO> Cosigner Signature (if applicable): cc: ~* Signed [facility] Work Phone: [phone]) 165-392210-26-2023 Note. MICRO - Microbiology PROCEDURE: Urine Culture [*1] SOURCE: Urine, Mitchell Catheter BODY SITE: COLLECTED DATE/TIME: 08/12/2023 13:49 EDT RECEIVED DATE/TIME: 08/12/2023 19:05 EDT START DATE/TIME: 08/12/2023 19:06 EDT FREE TEXT SOURCE: FINAL REPORTS Final Report [] Verified Date/Time/Personnel: 08/14/2023 08:03 EDT >100,000 cfu/ml Escherichia coli ESBL Extended-Spectrum B-Lactamase isolate may be clinically resistant to therapy with Penicillins, Cephalosporinsor Aztreonam despite apparent in vitro susceptibility to some of these agents. Use of Imipenem is currently restricted to Infectious Disease /Intensivists. Please consult Physicians accordingly. PRELIMINARY REPORTS Preliminary Report [] Verified Date/Time/Personnel: 08/13/2023 10:29 EDT >100,000 cfu/ml Escherichia coli FREDIS to follow SUSCEPTIBILITY RESULTS Escherichia coli ESBL Antibiotic FREDIS Dilut FREDIS Inter Ampicillin >16 Resistant Ampicillin/ >16/8 Resistant Sulbactam Aztreonam >16 Resistant Cefazolin >16 Resistant Cefotaxime >32 Suspected ESBL Snaker Ceftriaxone >32 Suspected ESBL Snaker Cefuroxime >16 Resistant Ciprofloxacin >2 Resistant Ertapenem <=0.5 Susceptible Gentamicin <=2 Susceptible Imipenem <=1 Susceptible Levofloxacin >4 Resistant Meropenem <=1 Susceptible Minocycline <=4 Susceptible Nitrofurantoin <=32 Susceptible Trimethoprim/ >2/38 Resistant Sulfa Performing Locations *1: This test was performed at: [facility], [address] [place] [address], [id number] , [facility] ([place])08-13-2023 Consult note Author Cholo Piper [facility] August 13, 2023 1:05pm Note Date/Time August 13, 2023 7 :01am [facility] Medical Records Department [address] [place] [address] Consultation - Power Plant Operators Supervisor 08/13/23 0655 MR#: [id number] Acct: [id number] Name: NADIA ANGLIN Rep #:[id number] : 1970 53 From: Cholo Piper MD PCP: Care Physician,No Primary Status :ADM IN Location: ICU ICU05-1 Assessment & Plan Assessment/Plan (1) Septic shock: (2) Diabetes: QUALIFIERS: Diabetes mellitus type: type 2 Diabetes mellitus half-way insulin use: with nursing home use Diabetes mellitus complication status: with kidney complications Diabetes mellitus complication detail: with other kidney complication Qualified Code(s): E11.29 - Type 2 diabetes mellitus with other diabetic kidney complication; 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 Continue meropenem pending culture results 2. Initiate contact precautions given previous ESBL 3. Obtain acute hepatitis panel, abdominal ultrasound 4. Consider nephrology consult if creatinine not improving in the next 24 hours 5. Hold heparin given thrombocytopenia 6. Possible transfer out of the intensive care unit later today if blood pressures remain stable IMPRESSIONS: 1. Septic shock secondary to acute pyelonephritis Patient with recent ESBL UTI and normal renal function. Patient presents with possible postobstructive findings with an inability urinate for 24 hours and findings consistent with UTI. Cultures are currently at the outside facility. Patient has been fluid responsive to this point. No pressors have been required. The patient remains relatively stable, could consider transfer out of the intensive care unit this afternoon. Patient should be in contact precautions until ESBL status can be verified. 2. Acute kidney injury secondary to problem #1 Patient with both postobstructive and prerenal etiology suggested by history and presentation. Patient did have a creatinine of 0.72 months ago. Patient's BUN to creatinine ratio suggests intrinsic dysfunction. If not improving in the next 24 hours, would consider nephrology consult. Agree with holding patient's BRIGHT inhibitor. Patient is on appropriate antibiotics. There is no indication for renal replacement therapy at this time, but there is some concern for possible hepatorenal syndrome. 3. Possible new cirrhosis Outside imaging is suggestive of cirrhotic changes of the liver. Patient does have an elevated INR and thrombocytopenia. Will order an acute hepatitis panel and right upper quadrant ultrasound. Could consider a GI consult pending the results. Patient is not showing any signs of variceal bleeding at this time, but hemoglobin is on the lower side. Patient may have an element of Potter 4. Diabetes mellitus with complications Patient with neuropathic pain previously on gabapentin. We will need to watch this closely as patient does have significant renal dysfunction at this time. Patient's long-acting insulin has been continued, but sliding scale will be necessary as p.o. intake may be variable. Blood sugars are appropriate at this time. 5. Tobacco abuse:/Obesity/poor insight Complicates care, management, recovery and prognosis. Patient counseled on smoking cessation, but appears to be precontemplative. Patient would benefitfrom weight loss. Could consider outpatient evaluation for obstructive sleep apnea, especially given patient's use of narcotics and gabapentin. HPI Consult Data Date of Consult: 08/13/23 HPI Narrative Reason for Consultation: Sepsis HPI Narrative: NADIA ANGLIN is a 53 F, with past medical history listed below, who presents to [facility]. [facility] that [facility] to a urinary tract infection. Patient states that she went home and was doing okay. Patient did not have any issues with urination previously. On presentation to the outside ER, patient did have a Mitchell catheter placed showing a highly abnormal urinalysis. Imaging had shown a left pyelonephritis along with cirrhosis and a porcelain gallbladder. Outside documentation is suggestive that the patient had an ESBL E. coli UTI 2 months ago. At the outside emergency department, patient had a lactate of 6.3 that did not respond to fluids. Patient did not have to be initiated on pressors. Patient was admitted to the intensive care unit at [facility]. Patient reports overall she feels subjectively slightly improved. Patient is reporting some leg discomfort described as cramps. Patient is not reporting any abdominal pain. Patient has not had any bleeding complications such as melena, hematochezia, epistaxis or hemoptysis. Patient does report a history of asthma and I believe she uses a as needed albuterol with no maintenance inhaler. Patient is a relatively poor historian. Patient is unaware of any previous issues with renal dysfunction or cirrhosis. Patient is not endorsing a significant alcohol intake, but does smoke on a regular basis. Patient is not aware of any previousdiagnosis of sleep apnea. Review of community records show patient did have a normal creatinine in May of 0.71. There does not appear to be any discussion of previous cirrhosis. Review of systems otherwise negative from a constitutional, HEENT, respiratory, cardiovascular, GI, genitourinary, musculoskeletal, skin, neurologic, psychiatric and hematologic system unless stated above. [facility] Medical History Arthritis Asthma Atypical chest pain Chronic back pain Chronic headaches Depression Diabetes Hypertension Left knee pain Neuropathy Obesity Psoriasis Psoriatic arthritis Right knee DJD Spinal stenosis Home Medications albuterol sulfate 2.5 mg/3 mL (0.083 %) solution for nebulization 2.5 mg inhalation Q4H PRN 07/12/22 [History Last Taken Unknown] albuterol sulfate 90 mcg/actuation aerosol inhaler 2 puff inhalation Q6H PRN asthma 07/12/22 [History Last Taken Unknown] cyclobenzaprine 10 mg tablet 10 mg PO TID PRN 07/12/22 [History Last Taken Unknown] gabapentin 600 mg tablet 600 mg PO BID back pain 07/12/22 [History Last Taken 08/12/23 21:00] hydrocodone 7.5 mg-acetaminophen 325 mg tablet 1 tab PO Q6H PRN back pain 07/12/22 [History Last Taken 08/12/23 21:00] metformin 500 mg tablet 500 mg PO BID diabetes 07/12/22 [History Last Taken Unknown] metoprolol tartrate 25 mg tablet 25 mg PO PRN high blood pressure 07/12/22 [History Last Taken Unknown] insulin glargine 100 unit/mL (3 mL) subcutaneous pen (Lantus Solostar U-100 Insulin) 20 unit subcut QPM diabetes 05/28/23 [History Last Taken Unknown] omeprazole 20 mg tablet,delayed release 20 mg PO BID PRN 05/28/23 [History Last Taken Unknown] lisinopril 10 mg tablet 10 mg PO DAILY blood pressure 08/12/23 [History Last Taken Unknown] loratadine 10 mg tablet 10 mg PO DAILY PRN allergies 08/12/23 [History Last Taken Unknown] Allergy/AdvReac Type Severity Reaction Status Date / Time coconut Allergy Severe Anaphylaxis Verified 05/28/23 10:59 erythromycin base Allergy Intermediate Other Verified 05/28/23 10:59 sulfamethoxazole Allergy Intermediate Other Verified 05/28/23 10:59 codeine Allergy Unknown unknown Verified 05/28/23 10:59 epinephrine Allergy Unknown unknown Verified 05/28/23 10:59 [From Primatene Mist] Family History Father CAD (coronary artery disease) Myocardial infarction, Onset Age: 62 Other Arthritis CVA (cerebral vascular accident) Cancer Hypertension Surgical History History of section Hx of tubal ligation Social History household members: spouse Smoking Status: Current every day smoker tobacco type: cigarettes alcohol intake: current alcohol intake frequency: holidays/special occasions only substance use type: does not use caffeine: Yes Type: coffee Number of servings: 1 ROS ROS Narrative See HPI Physical Exam Const alert, oriented x3 and no apparent distress Constitutional Narrative: No conversational dyspnea. Morbidly obese. General Appearance: cooperative and well developed HEENT normocephalic, head/scalp atraumatic and moist oral mucous membranes Eyes PERRL, EOMs intact bilaterally and conjunctivae normal Neck full ROM and no lymphadenopathy Chest inspection of chest normal Resp normal respiratory effort and no use of accessory muscles Effort and Inspection: able to speak in complete sentences Auscultation: clear to auscultation bilaterally; Negative for rales, rhonchi or wheezes Cardio regular rhythm, S1 normal heart sound, S2 normal heart sound, no murmurs, no ruband no gallops Rate: tachycardic GI normal to inspection, nondistended, normoactive bowel sounds, soft to palpation and non-tender GI Narrative: No suprapubic tenderness no CVA tenderness Extremity General Extremity: edema; Negative for clubbing Skin no rashes or lesions noted Neuro oriented x3, CN's II-XII intact bilaterally, moves all extremities and no focal motor deficits Psych cooperative and affect normal Medical Records Data Attestation: I reviewed the patient's medical records Lab / Micro Data Attestation: I reviewed the patient's lab results. 08/13/23 03:09 08/13/23 03:09 Labs: Laboratory Results - last 24 hr 08/13/23 03:09: WBC 13.3 H, RBC 3.52 L, Hgb 9.9 L, Hct 31.0 L, MCV 88.1, MCH 28.1, MCHC 31.9 L, RDW Std Deviation 47.7 H, RDW Coeff of Frannie 14.8 H, Plt Count 76 L, MPV 11.2, Immature Gran % (Auto) 3.200 H, Neut % (Auto) 81.7 H, Lymph % (Auto) 6.1 L, Major % (Auto) 7.8, Eos % (Auto) 0.5, Baso % (Auto) 0.7, Absolute Neuts (auto) 10.9 H, Absolute Lymphs (auto) 0.81 L, Nucleated RBC % 0, Differential Comment SCANNED, Sodium 126 L, Potassium 5.1, Chloride 98, Carbon Dioxide 17.0 L, Anion Gap 11, BUN 33 H, Creatinine 3.75 H, Estim Creat Clear Calc 17.10, Est GFR (MDRD) Af Amer 16 L, Est GFR (MDRD) Non-Af 13 L, BUN/Creatinine Ratio 8.8 L, Glucose 144 H, Lactic Acid 5.0 H*, Calcium 7.9 L, Total Bilirubin 1.20 H, AST 19, ALT 11 L, Alkaline Phosphatase 129 H, Total Protein 7.4, Albumin 2.0 L, Globulin 5.4 H, Albumin/Globulin Ratio 0.4 L Rhythm Strip Rhythm Strip: Sinus Tach Rate: 110 Ectopy: None Charges/Coding Visit Charges Inpatient E&M: 26281 Init Hosp L3 08/13/23 1307 <Electronically signed by Cholo Piper MD> Cosigner Signature (if applicable): CC: Dr. Kamla Jimenez, DO; No Primary Care Physician~ Signed [facility] Work Phone: [phone]) 765-375710-25-2023 Progress note Author Nato Snyder [facility] August 13, 2023 11:27am Note Date/Time August 13, 2023 7 :44am [facility] Medical Records Department [address] [place] [address] Progress Note - Hospitalist 08/13/23721 MR#: [id number] Acct: [id number] Name: NADIA ANGLIN Rep #:[id number] : 1970 53 From: Nato Snyder DO PCP: Care Physician,No Primary Status :ADM IN Location: ICU ICU-1 Reason for Visit Reason for Visit: Diagnoses Sepsis, unspecified organism (08/12/23) Severe sepsis with septic shock (08/12/23) Subjective Subjective Feels better, but tired. Objective Data Objective Data Vital Signs: Vital Signs Temp Pulse Resp BP Pulse Ox O2 Del Method 37.1 C 113 H 16 146/86 H 95 Room Air 08/13/23 05:00 08/13/23 07:00 08/13/23 07:00 08/13/23 07:00 08/13/23 07:00 08/13/23 07:00 Oxygen Delivery Method Room Air Weight: 117.9 kg Body Mass Index (BMI) 39.5 Intake & Output: Intake and Output for Last 24 Hours 08/11/23 08/12/23 08/13/23 23:59 23:59 23:59 Intake Total 1350 / 1350 Output Total 200 / 200 125 / 125 Balance -200 / -200 1225 / 1225 Lab / Micro Data 08/13/23 03:09 08/13/23 03:09 Labs: Laboratory Results - last 24 hr 08/13/23 03:09: WBC 13.3 H, RBC 3.52 L, Hgb 9.9 L, Hct 31.0 L, MCV 88.1, MCH 28.1, MCHC 31.9 L, RDW Std Deviation 47.7 H, RDW Coeff of Frannie 14.8 H, Plt Count 76 L, MPV 11.2, Immature Gran % (Auto) 3.200 H, Neut % (Auto) 81.7 H, Lymph % (Auto) 6.1 L, Major % (Auto) 7.8, Eos % (Auto) 0.5, Baso % (Auto) 0.7, Absolute Neuts (auto) 10.9 H, Absolute Lymphs (auto) 0.81 L, Nucleated RBC % 0, Differential Comment SCANNED, Sodium 126 L, Potassium 5.1, Chloride 98, Carbon Dioxide 17.0 L, Anion Gap 11, BUN 33 H, Creatinine 3.75 H, Estim Creat Clear Calc 17.10, Est GFR (MDRD) Af Amer 16 L, Est GFR (MDRD) Non-Af 13 L, BUN/Creatinine Ratio 8.8 L, Glucose 144 H, Lactic Acid 5.0 H*, Calcium 7.9 L, Total Bilirubin 1.20 H, AST 19, ALT 11 L, Alkaline Phosphatase 129 H, Total Protein 7.4, Albumin 2.0 L, Globulin 5.4 H, Albumin/Globulin Ratio 0.4 L Rhythm Strip Rhythm Strip: Sinus Tach Rate: 110 Ectopy: None Physical Exam Const alert and no apparent distress HEENT head/scalp atraumatic and moist oral mucous membranes Resp normal respiratory effort, no retractions, no use of accessory muscles and clearto auscultation bilaterally Cardio regular rate, regular rhythm, S1 normal heart sound and S2 normal heart sound GI normal to inspection, nondistended, normoactive bowel sounds, soft to palpation,non-tender and non-distended GI Narrative: no CVA tenderness. Assessment & Plan Assessment/Plan (1) Sepsis: QUALIFIERS: Acute renal failure type: unspecified Sepsis acute organ dysfunction status: with acute organ dysfunction Sepsis type: sepsis due to unspecified organism Severe sepsis acute organ dysfunction type: acute renalfailure Severe sepsis shock status: without septic shock Qualified Code(s): A41.9 - Sepsis, unspecified organism; R65.20 - Severe sepsis without septic shock; N17.9 - Acute kidney failure, unspecified PLAN: POA SIRS: 3/4 (HR 124, RR 24, WBC 13.3 on admission at [facility]), qSOFA 2 (RR 24, BP w several SBP <100) 2/2 pyelonephritis Lactic acidosis may have been skewed given use of metformin. No documented hypotension, therefore, septic shock ruled out. (2) Pyelonephritis: PLAN: Through [facility]: CT showed left renal enlargement w perinephric and periureteral fat stranding but no evidence of acute urinary obstruction. Findings suggesting pyelonephritis. (additionally porcelain gallbladder) Follow up UCx from OSH. (3) BREONNA (acute kidney injury): PLAN: Through [facility]: Creatinine was 1.09 on 06/15. Continue IVF. Monitor. PLAN: Plan Chronic conditions: * HTN: continue metoprolol. hold lisinopril given BREONNA * Diabetes mellitus with polyneuropathy: metformin held given BREONNA. Glargine 20 and SSI. Gabapentin dose cut back given BREONNA * tobacco abuse: nicotine patch if requested * cirrhosis: dc acetaminophen. 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 follow up with general surgery as outpt. DVT prophylaxis: Subcu heparin ordered Transfer to [facility]. Charges/Coding Visit Charges Inpatient E&M: 60622 Subs Hosp L2 08/13/23 1127 <Electronically signed by Nato Snyder DO> Cosigner Signature (if applicable): CC: ~ Signed [facility] Work Phone: [phone]) 989-746910-25-2023 History and physical note Author Clifford Hernandez [facility] August 13, 2023 1:27am Note Date/Time August 12, 2023 1 1:02pm [facility] Medical Records Department [address] [place] [id number] H&P Exam - Hospitalist 08/12/23 3532 MR#: [id number] Acct: [id number] Name: NADIA ANGLIN Rep #:[id number] : 1970 53 From: Clifford Hernandez MD PCP: Care Physician,No Primary Status :ADM IN Location: ICU ICU05-1 [facility] - General General Date of Admission: 08/12/23 Date of Service: 08/12/23 Chief Complaint: Unable to urinate HPI Narrative NADIA ANGLIN, is a 53 F with a significant history of hypertension; diabetes;tobacco abuse and left pyelonephritis 2 months ago who presented to [facility] because she was unable to urinate. Patient reports that a day before presentation to outside hospital she was unable to urinate and her last time sheurinated prior to going to [facility] was on 08/11/2023 at about 7 AM. At [facility] an indwelling Mitchell catheter was placed. Urinalysis reportedly was abnormal. Imaging showed left pyonephritis. Associated with patient's symptoms is nausea and chills on 08/10/2023. Further patient reports anorexia. Patient reported being admitted at [facility] 2 months ago for left pyelonephritis. Reportedly patient is a history of ESBL UTI. Patient was diagnosed with sepsis secondary to UTI; acute pyelonephritis and incidental finding of a porcelain gallbladder. Lactic acid at outside hospital was 6.3 and after hydration it went to 6.4. Reportedly his lactic acid dropped into the [facility] Medical History Arthritis Asthma Atypical chest pain Chronic back pain Chronic headaches Depression Diabetes Hypertension Left knee pain Neuropathy Obesity Psoriasis Psoriatic arthritis Right knee DJD Spinal stenosis Home Medications albuterol sulfate 2.5 mg/3 mL (0.083 %) solution for nebulization 2.5 mg inhalation Q4H PRN 07/12/22 [History Last Taken Unknown] albuterol sulfate 90 mcg/actuation aerosol inhaler 2 puff inhalation Q6H PRN asthma 07/12/22 [History Last Taken Unknown] cyclobenzaprine 10 mg tablet 10 mg PO TID PRN 07/12/22 [History Last Taken Unknown] gabapentin 600 mg tablet 600 mg PO BID back pain 07/12/22 [History Last Taken 08/12/23 21:00] hydrocodone 7.5 mg-acetaminophen 325 mg tablet 1 tab PO Q6H PRN back pain 07/12/22 [History Last Taken 08/12/23 21:00] metformin 500 mg tablet 500 mg PO BID diabetes 07/12/22 [History Last Taken Unknown] metoprolol tartrate 25 mg tablet 25 mg PO PRN high blood pressure 07/12/22 [History Last Taken Unknown] insulin glargine 100 unit/mL (3 mL) subcutaneous pen (Lantus Solostar U-100 Insulin) 20 unit subcut QPM diabetes 05/28/23 [History Last Taken Unknown] omeprazole 20 mg tablet,delayed release 20 mg PO BID PRN 05/28/23 [History Last Taken Unknown] lisinopril 10 mg tablet 10 mg PO DAILY blood pressure 08/12/23 [History Last Taken Unknown] loratadine 10 mg tablet 10 mg PO DAILY PRN allergies 08/12/23 [History Last Taken Unknown] Allergy/AdvReac Type Severity Reaction Status Date / Time coconut Allergy Severe Anaphylaxis Verified 05/28/23 10:59 erythromycin base Allergy Intermediate Other Verified 05/28/23 10:59 sulfamethoxazole Allergy Intermediate Other Verified 05/28/23 10:59 codeine Allergy Unknown unknown Verified 05/28/23 10:59 epinephrine Allergy Unknown unknown Verified 05/28/23 10:59 [From Primatene Mist] Family History Father CAD (coronary artery disease) Myocardial infarction, Onset Age: 62 Other Arthritis CVA (cerebral vascular accident) Cancer Hypertension Surgical History History of section Hx of tubal ligation Social History household members: spouse Smoking Status: Current every day smoker tobacco type: cigarettes alcohol intake: current alcohol intake frequency: holidays/special occasions only substance use type: does not use caffeine: Yes Type: coffee Number of servings: 1 ROS ROS Narrative Pertinent positives and pertinent negatives as noted in HPI. All other systems were reviewed and are negative Vital Signs Vital Signs Vital Signs: 08/12/23 22:29 08/12/23 22:30 08/12/23 22:45 Temperature 98.7 F Temperature Source Oral Pulse Rate 124 H 124 H 125 H Respiratory Rate 20 H 20 H 23 H Blood Pressure 119/64 103/55 L 106/58 L Blood Pressure Mean 82 71 74 Blood Pressure Source Monitor Monitor Monitor Blood Pressure Position Semi-Fowlers Semi-Fowlers Semi-Fowlers Blood Pressure Location Right Arm Right Arm Right Arm Pulse Ox 97 96 95 Oxygen Delivery Method Room Air Room Air Room Air Weight Weight: 116.2 kg Body Mass Index (BMI) 38.9 Physical Exam Narrative Physical exam: General: Well-nourished, well-developed. Head: Normocephalic, atraumatic, no tenderness Eyes: Vision is grossly intact. EOMI ENT, no trauma, moist mucous membranes, no rhinorrhea Neck: Nontender, No thyromegaly. CVS: Regular rate and rhythm. S1-S2 present. No murmur, gallop or rub. Respiratory : clear to auscultation bilaterally, chest wall nontender Abdomen: Soft, nontender, nondistended, normal bowel sounds, no masses : Deferred Back: Nontender, no CVA tenderness, no midline spinal tenderness, deformities, step-offs Extremities: Nontender full range of motion, no trauma Skin: Normal color, no trauma, abrasions Neuro: Alert, oriented, cranial nerves II through XII grossly intact. Psychiatry: Normal mood. Normal affect. Not depressed. Not anxious. Assessment & Plan Assessment/Plan (1) Septic shock: PLAN: Plan Septic shock secondary to acute pyelonephritis The patient presented with sepsis due to (infection) with acute sepsis related organ dysfunction as evidenced by (organ dysfunction/s). SIRS criteria: Respiratory rate of more than 20 on admission to the ICU; heart rate more than 90. Lactic acid of 6.3 at outside hospital which increased 6.4. Abnormal urinalysis at the outside hospital. CT of abdomen and pelvis at outside hospital with acute left pyonephritis. Received Merrem at outside hospital. Merrem will be continued for patient history of ESBL E. coli. We will trend CBC and CMP. organ dysfunction: Lactic acidosis with lactic acid of more than 4 which qualifies for septic shock. Creatinine more than 2 or urine output less than 0.5 mL/kg/h for 2 hours Blood culture was obtained at outside hospital, follow. BREONNA Creatinine on presentation at [facility] ED 3.91. Not enough information to determine whether patient has a history of CKD. Review of community records show that on 06/15/2023 patient creatinine was 0.71; on 06/14/2023 creatinine was 1.46; on 06/13/2023 creatinine was 1.89. Received normal fluid bolus at outside hospital ED. With septic shock we will give additional 1 L normal saline bolus to complete 30 MLS per kilogram IV fluids per septic shock protocol. Avoid nephrotoxic's. Trend CMP. History of hypertension Patient with hypertension on presentation. Trend blood pressures hold home blood pressure medication Diabetes mellitus with polyneuropathy Gabapentin continued. Blood glucose elevated at outside hospital. Long-acting insulin continued. Continue correction scale insulin ordered. Tobacco abuse Counseled DVT prophylaxis: Subcu heparin ordered Time spent in the patient's overall evaluation,decision-making process, review of diagnostic data, adjustment of management, discussion with other providers, nursing and ancillary staff involved in patient's care documentation, 72 minutes. Charges/Coding Visit Charges Inpatient E&M: 48285 Init Hosp L3 08/13/23 0127 <Electronically signed by Clifford Hernandez MD> Cosigner Signature (if applicable): CC: Dr. Clifford Hernandez MD; No Primary Care Physician~ Signed [facility] Work Phone: [phone] Note ORIGINAL EXAMINATION: RIGHT UPPER QUADRANT ULTRASOUND 08/12/2023 4:26 pm COMPARISON: Limited evaluation of the abdomen on CT abdomen pelvis August 12, 2023 HISTORY: ORDERING SYSTEM PROVIDED HISTORY: Reason for Exam: Porcelein gallbladder seen on CT; elevated bili FINDINGS: LIVER: The liver demonstrates diffuse increased echogenicity with undulation of the capsule. BILIARY SYSTEM: Gallbladder is prominent, with echogenic wall correlating with calcification on CT. No gallstones. Negative sonographic Gastelum's sign. Common bile duct is within normal limits measuring 0.9 cm. RIGHT KIDNEY: The right kidney is grossly unremarkable without evidence of hydronephrosis. PANCREAS: Visualized portions of the pancreas are unremarkable. OTHER: No evidence of right upper quadrant ascites. IMPRESSION: Nonspecific mildly dilated common bile duct. Calcification of the gallbladder wall. No gallstones. Diffuse increased echogenicity of the liver, which can be seen in diffuse hepatocellular process. Undulating contour to the liver capsule suggestive of underlying hepatic fibrosis or cirrhosis. Interpreted by: Kyle Dang Preliminary Report By: Kyle Dang Electronically signed By Kyle Dang Dictated Date: 08/12/2023 4:27:53 PM Prelim Date: 08/12/2023 4:33:13 PM Sign Date: 08/12/2023 4:33:13 PM Ordering Provider: [facility]10-24-2023 Note ORIGINAL EXAMINATION: CT OF THE ABDOMEN AND PELVIS WITHOUT XIJSCWIU78/24/2023 3:14 pm TECHNIQUE: CT of the abdomen and pelvis was performed without the administration of intravenous contrast. Multiplanar reformatted images are provided for review. Automated exposure control, iterative reconstruction, and/or weight based adjustment of the mA/kV was utilized to reduce the radiation dose to as low as reasonably achievable. COMPARISON: None HISTORY: ORDERING SYSTEM PROVIDED HISTORY: Reason for Exam: unable to urinate x2 days. recent kidney infection. pain FINDINGS: There is no evidence of pulmonary nodule or pleural effusion at the level of the lung bases. The liver has a lobular contour with hypertrophy of the left hepatic lobe. There is splenomegaly with multiple small portal splenic varices and recanalization of the umbilical vein. No gross focal hepatic lesion is identified. There is peripheral calcification of the gallbladder with increased attenuation of the bile at 32 Hounsfield units. There is no evidence of pericholecystic fluid. Fatty atrophic changes are present in the pancreas. The adrenal glands are not enlarged. There is no evidence of right-sided hydronephrosis, hydroureter or renal lesion. There is edematous low-attenuation of the left kidney with left Joanne nephric fat stranding and left periureteral fat stranding. There is no evidence of hydronephrosis or perinephric fluid collection. Mitchell catheter has been placed into the urinary bladder lumen. No focal bladder abnormality is identified. The uterus and adnexa are unremarkable. Lack of oral contrast limits evaluation of the large and small bowel. There is no gross evidence of bowel obstruction. There is no evidence of a dilated vermiform appendix. No free intraperitoneal fluid or air is identified. There is no gross evidence of abdominal or pelvic lymph node enlargement. Bone windows reveal no evidence of acute fracture or osteolytic/osteoblastic lesion. Moderate degenerative changes are present at L5-S1. Mild left sacroiliac joint degenerative changes are present. IMPRESSION: Left renal enlargement with perinephric and joanne-ureteral fat stranding but no evidence of acute urinary obstruction. Findings suggest pyelonephritis. Findings consistent with cirrhosis with portal venous hypertension and splenomegaly. Porcelain gallbladder. Interpreted by: Sav Mahoney Preliminary Report By: Sav Mahoney Electronically signed By Sav Mahoney Dictated Date: 08/12/2023 3:19:51 PM Prelim Date: 08/12/2023 3:25:34 PM Sign Date: 08/12/2023 3:25:34 PM Ordering Provider: [facility]10-24-2023 Note ORIGINAL HISTORY: Pain, fever COMPARISON: 16 November 2019 FINDINGS: The lungs and pleural spaces are clear. The cardiac silhouette is within normal limits. The pulmonary vasculature is within normal limits. IMPRESSION: Clear lungs. Interpreted by: Radhika Corona MD Preliminary Report By: Radhika Corona MD Electronically signed By Radhika Corona MD Dictated Date: 08/12/2023 2:40:57 PM Prelim Date: 08/12/2023 2:41:18 PM Sign Date: 08/12/2023 2:41:18 PM [facility] Sinus tachycardia EKG interpretation is noted and agreed to in [employer]. The interpretation of this patient's EKG contributed directly to the care and management of this patient. Electronic Signature: KATELYNN NOEL DO 08/12/2023 14:43:46[facility] 10-24-2023 Evaluation + Plan note Diagnostic Tests Pending * Urine Culture 08/12/[address] [facility] 09-03-2023 Note. MICRO - Microbiology PROCEDURE: Urine Culture [*1] SOURCE: Urine BODY SITE: COLLECTED DATE/TIME: 06/20/2023 12:06 EDT RECEIVED DATE/TIME: 06/20/2023 18:58 EDT START DATE/TIME: 06/20/2023 18:59 EDT FREE TEXT SOURCE: FINAL REPORTS Final Report [] Verified Date/Time/Personnel: 06/22/2023 08:17 EDT >100,000 cfu/ml Escherichia coli ESBL Extended-Spectrum B-Lactamase isolate may be clinically resistant to therapy with Penicillins, Cephalosporinsor Aztreonam despite apparent in vitro susceptibility to some of these agents. Use of Imipenem is currently restricted to Infectious Disease /Intensivists. Please consult Physicians accordingly. PRELIMINARY REPORTS Preliminary Report [] Verified Date/Time/Personnel: 06/21/2023 11:04 EDT >100,000 cfu/ml Escherichia coli FREDIS to follow SUSCEPTIBILITY RESULTS Escherichia coli ESBL Antibiotic FREDIS Dilut FREDIS Inter Ampicillin >16 Resistant Ampicillin/ >16/8 Resistant Sulbactam Aztreonam >16 Resistant Cefazolin >16 Resistant Cefotaxime >32 Suspected ESBL Snaker Ceftriaxone >32 Suspected ESBL Snaker Cefuroxime >16 Resistant Ciprofloxacin >2 Resistant Ertapenem <=0.5 Susceptible Gentamicin <=2 Susceptible Imipenem <=1 Susceptible Levofloxacin >4 Resistant Meropenem <=1 Susceptible Minocycline <=4 Susceptible Nitrofurantoin <=32 Susceptible Trimethoprim/ >2/38 Resistant Sulfa Performing Locations *1: This test was performed at: [facility], [address] [place] [address], [id number] , [facility] ([place])06-15-2023 Nurse Discharge summary Patient and Significant other educated on homegoing instructions, both were not willing to discuss and wanted to leave. This nurse stressed the importance of following up with new PCP and meds clinic. Patient signed papers, was alert and oriented and in a stable condition. IV was removed hemostasisin expected time frame. [facility]08-27-2023 Note Discharge Instructions Thank you for allowing [facility] to assist you with your healthcare needs. The following is importantdischarge information regarding your hospital visit. Your Care Team [facility] Your Diagnosis Acute kidney injury Acute pyelonephritis Asthma Chronic back pain Diabetes Hypertension What to do next Instructions From Your Doctor You were admitted due to left flank/abdominal pain likely from pyelonephritis. We have treated you with Ceftriaxone IV while waiting for your urine culture to come back. Unfortunately, the urine culture appears to be contaminated so we received no useful information from it. You have improved on the Ceftriaxone so this most likely eliminated the bacteria. We will send you home on an oral antibiotic in the same family to continue. You have been scheduled in to see a new PCP on 06/30 as well as anappointment with our [facility] to help you manage your diabetes better. We will send in a script today for Bud 2 sensors and a Bud reader to help you monitor your blood sugars closely. The [facility] will work with your new PCP to help manage medications for your diabetes. If you have any new or worsening symptoms, please return to the ED. 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 Where: [address] [place] [phone] The Following Activity and Diet Have Been Ordered for You Discharge Activity - Ordered -- Resume your pre-hospitalization activity, 06/15/23 13:44:00 EDT Discharge Diet - Ordered -- No changes were made to your diet during your hospital stay. Please resume your pre hospitalization diet on discharge., 06/15/23 13:44:00 EDT Allergies Cipro Primatene Mist Inhaler codeine sulfamethoxazole Medications Please ask your primary doctor or pharmacist before taking any other medication not listed, including over the counter drugs, herbal medications, vitamins and or supplements as they may interact withyour home medications. What How Much When Instructions Last Dose New cefdinir (cefdinir 300 mg oral capsule) 1 cap by mouth Every 12 hours Start Tomorrow Duration: 4 Days Pickup at [facility] #[id number] New DME (DME [facility]) See instructions Please dispense Bud 2 sensors (2 total) as well as a Bud reader. Pickup at [facility] #[id number] Unchanged acetaminophen-hydrocodone (Conway 325- 7.5 mg oral tablet) 1 tab(s) by mouth Every 6 hours as needed for for pain 2:30 PM Unchanged albuterol (ProAir HFA MDI (90 mcg/ inh) inhalation aerosol) 2 puff(s) by inhalation Every 4 hours as needed for for wheezing Unchanged cyclobenzaprine (Flexeril 10 mg oral tablet) 1 tab(s) by mouth Three (3) times a day as needed for for muscle spasm 9 AM Unchanged famotidine (famotidine 20 mg oral tablet) 1 tab(s) by mouth Two (2) times a day Duration: 5 Days 9 AM Unchanged gabapentin (gabapentin 300 mg oral capsule) 2 cap by mouth Two (2) times a day 9 AM Unchanged glyBURIDE (glyBURIDE 5 mg oral tablet) 1 tab(s) by mouth Twice daily with meals 9 AM Unchanged insulin glargine (Basaglar 100 unit(s)/ mL 3 mL KwikPen) 18 unit(s) Subcutaneous Daily at bedtime 10 PM Unchanged lisinopril 10 Milligram by mouth Once a day 9 AM Unchanged metFORMIN (metFORMIN 500 mg oral tablet) 1 tab(s) by mouth Two (2) times a day n/a Unchanged ondansetron (Zofran) 4 Milligram by mouth Every 6 hours n/a Pharmacy Information [id number]: [address], [place] [phone] What How Much When Comments Stop Taking ciprofloxacin (Cipro 500 mg oral tablet) 1 tab(s) by mouth Two (2) times a day Please take this list to your next doctor s visit. Bring all medications you take, including over the counter medications, herbals and other supplements with you to your doctor s visit. Patients and families are reminded to discard old lists and to update any records with all medication providers or retail pharmacies. Medication Leaflets cefdinir ([facility] anant macias) What is the most important information I should know about cefdinir? Do not take this medicine if you are allergic to cefdinir, or to similar antibiotics, such as Ceftin, Cefzil, Keflex, and others. What is cefdinir? Cefdinir is a cephalosporin (SEF a low spor in) antibiotic that is used to treat many different types of infections caused by bacteria. Cefdinir may also be used for purposes not listed in this medication guide. What should I discuss with my healthcare provider before taking cefdinir? You should not take this medicine if you are allergic to cefdinir or any other cephalosporin antibiotic (cefadroxil, cefprozil, cefazolin, cefalexin, Keflex, and others). Tell your doctor if you have ever had: kidney disease (or if you are on dialysis); intestinal problems, such as colitis; or an allergy to any drugs (especially penicillins). Cefdinir liquid contains sucrose. Talk to your doctor before using this form of cefdinir if you have diabetes. Tell your doctor if you are or . How should I take cefdinir? Follow all directions on your prescription label and read all medicine guides or instruction sheets. Use the medicine exactly as directed. Shake the oral suspension (liquid) before you measure a dose. Use the dosing syringe provided, or use a medicine dose-measuring device (not a kitchen spoon). You may take cefdinir with or without food. Use this medicine for the full prescribed length of time, even if your symptoms quickly improve. Skipping doses can increase your risk of infection that is resistant to medication. Cefdinir will not treat a viral infection such as the flu or a common cold. Cefdinir can affect the results of certain medical tests. Tell any doctor who treats you that you are using cefdinir. Store at room temperature away from moisture and heat. Throw away any unused cefdinir liquid that is older than 10 days. What happens if I miss a dose? Take the medicine as soon as you can, but skip the missed dose if it is almost time for your next dose. Do not take two doses at one time. What happens if I overdose? Seek emergency medical attention or call the Poison Help line at . Overdose symptoms may include nausea, vomiting, stomach pain, diarrhea, or a seizure. What should I avoid while taking cefdinir? Avoid using antacids or mineral supplements that contain aluminum, magnesium, or iron within 2 hours before or after taking cefdinir. Antacids or iron can make it harder for your body to absorb cefdinir. This does not include baby formula fortified with iron. Antibiotic medicines can cause diarrhea, which may be a sign of a new infection. If you have diarrhea that is watery or bloody, call your doctor before using anti-diarrhea medicine. What are the possible side effects of cefdinir? Get emergency medical help if you have signs of an allergic reaction (hives, difficult breathing, swelling in your face or throat) or a severe skin reaction (fever, sore throat, burning eyes, skin pain, red or purple skin rash with blistering and peeling). Call your doctor at once if you have: severe stomach pain, diarrhea that is watery or bloody (even if it occurs months after your last dose); fever, chills, body aches, flu symptoms; pale skin, easy bruising, unusual bleeding; seizure (convulsions); fever, weakness, confusion; dark colored urine, jaundice (yellowing of the skin or eyes); or kidney problems--little or no urination, swelling in your feet or ankles, feeling tired or short ofbreath. Common side effects may include: nausea, vomiting, stomach pain, diarrhea; vaginal itching or discharge; headache; or rash (including diaper rash in an taking liquid cefdinir. This is not a complete list of side effects and others may occur. Call your doctor for medical advice about side effects. You may report side effects to FDA at 8-547-BEO-2661. What other drugs will affect cefdinir? Tell your doctor about all your other medicines, especially: probenecid; or vitamin or mineral supplements that contain iron. This list is not complete. Other drugs may affect cefdinir, including prescription and zzht-sfi-byoauug medicines, vitamins, and herbal products. Not all possible drug interactions are listed here. Where can I get more information? Your pharmacist can provide more information about cefdinir. Remember, keep this and all other medicines out of the reach of children, never share your medicines with others, and use this medication only for the indication prescribed. Every effort has been made to ensure that the information provided by [employer]. ('[employer]') is accurate, up-to-date, and complete, but no guarantee is made to that effect. Drug information contained herein may be time sensitive. [employer] information has been compiled for use by healthcare practitioners and consumers in the [place] and therefore [employer] does not warrant that uses outside of the [place] are appropriate, unless specifically indicated otherwise. [employer] drug information does not endorse drugs, diagnose patients or recommend therapy. [employer] drug information isan informational resource designed to assist licensed healthcare practitioners in caring for their p atients and/or to serve consumers viewing this service as a supplement to, and not a substitute for, the expertise, skill, knowledge and judgment of healthcare practitioners. The absence of a warningfor a given drug or drug combination in no way should be construed to indicate that the drug or drug combination is safe, effective or appropriate for any given patient. [employer] does not assume any responsibility for any aspect of healthcare administered with the aid of information [employer] provides. The information contained herein is not intended to cover all possible uses, directions, precautions, warnings, drug interactions, allergic reactions, or adverse effects. If you have questions about the drugs you are taking, check with your doctor, nurse or pharmacist. Copyright 0333-1401 [employer], [facility]. Version: 9.01. Revision Date: 05/23/2023. Education Materials Hyperglycemia Hyperglycemia occurs when the level of sugar (glucose) in the blood is too high. Glucose is a type of sugar that provides the body's main source of energy. Certain hormones (insulin and glucagon) control the level of glucose in the blood. Insulin lowers blood glucose, and glucagon increases blood glucose. Hyperglycemia can result from having too little insulin in the bloodstream, or from the bodynot responding normally to insulin. Hyperglycemia occurs most often in people who have diabetes (diabetes mellitus), but it can happen in people who do not have diabetes. It can develop quickly, and it can be life-threatening if it causes you to become severely dehydrated (diabetic ketoacidosis or hyperglycemic hyperosmolar state). Severe hyperglycemia is a medical emergency. What are the causes? If you have diabetes, hyperglycemia may be caused by: Diabetes medicine. Medicines that increase blood glucose or affect your diabetes control. Not eating enough, or not eating often enough. Changes in physical activity level. Being sick or having an infection. If you have prediabetes or undiagnosed diabetes: Hyperglycemia may be caused by those conditions. If you do not have diabetes, hyperglycemia may be caused by: Certain medicines, including steroid medicines, beta-blockers, epinephrine, and thiazide diuretics. Stress. Serious illness. Surgery. Diseases of the pancreas. Infection. What increases the risk? Hyperglycemia is more likely to develop in people who have risk factors for diabetes, such as: Having a family member with diabetes. Having a gene for type 1 diabetes that is passed from parent to child (inherited). Living in an area with cold weather conditions. Exposure to certain viruses. Certain conditions in which the body's disease-fighting (immune) system attacks itself (autoimmune disorders). Being overweight or obese. Having an inactive (sedentary) lifestyle. Having been diagnosed with insulin resistance. Having a history of prediabetes, gestational diabetes, or polycystic ovarian syndrome (PCOS). Being of Dutch-, -Dutch, /, or / descent. What are the signs or symptoms? Hyperglycemia may not cause any symptoms. If you do have symptoms, they may include early warning signs, such as: Increased thirst. Hunger. Feeling very tired. Needing to urinate more often than usual. Blurry vision. Other symptoms may develop if hyperglycemia gets worse, such as: Dry mouth. Loss of appetite. Fruity-smelling breath. Weakness. Unexpected or rapid weight gain or weight loss. Tingling or numbness in the hands or feet. Headache. Skin that does not quickly return to normal after being lightly pinched and released (poor skin turgor). Abdominal pain. Cuts or bruises that are slow to heal. How is this diagnosed? Hyperglycemia is diagnosed with a blood test to measure your blood glucose level. This blood test is usually done while you are having symptoms. Your health care provider may also do a physical exam and review your medical history. You may have more tests to determine the cause of your hyperglycemia, such as: A fasting blood glucose (FBG) test. You will not be allowed to eat (you will fast) for at least 8 hours before a blood sample is taken. An A1c (hemoglobin A1c) blood test. This provides information about blood glucose control over the previous 2 3 months. An oral glucose tolerance test (OGTT). This measures your blood glucose at two times: ? After fasting. This is your baseline blood glucose level. ? Two hours after drinking a beverage that contains glucose. How is this treated? Treatment depends on the cause of your hyperglycemia. Treatment may include: Taking medicine to regulate your blood glucose levels. If you take insulin or other diabetes medicines, your medicine or dosage may be adjusted. Lifestyle changes, such as exercising more, eating healthier foods, or losing weight. Treating an illness or infection, if this caused your hyperglycemia. Checking your blood glucose more often. Stopping or reducing steroid medicines, if these caused your hyperglycemia. If your hyperglycemia becomes severe and it results in hyperglycemic hyperosmolar state, you must be hospitalized and given IV fluids. Follow these instructions at home: General instructions Take lxxd-nkv-kuxxqaz and prescription medicines only as told by your health care provider. Do not use any products that contain nicotine or tobacco, such as cigarettes and e-cigarettes. If you need help quitting, ask your health care provider. Limit alcohol intake to no more than 1 drink per day for non women and 2 drinks per day formen. One drink equals 12 oz of beer, 5 oz of wine, or 1 oz of hard liquor. Learn to manage stress. If you need help with this, ask your health care provider. Keep all follow-up visits as told by your health care provider. This is important. Eating and drinking Maintain a healthy weight. Exercise regularly, as directed by your health care provider. Stay hydrated, especially when you exercise, get sick, or spend time in hot temperatures. Eat healthy foods, such as: ? Lean proteins. ? Complex carbohydrates. ? Fresh fruits and vegetables. ? Low-fat dairy products. ? Healthy fats. Drink enough fluid to keep your urine clear or pale yellow. If you have diabetes: Make sure you know the symptoms of hyperglycemia. Follow your diabetes management plan, as told by your health care provider. Make sure you: ? Take your insulin and medicines as directed. ? Follow your exercise plan. ? Follow your meal plan. Eat on time, and do not skip meals. ? Check your blood glucose as often as directed. Make sure to check your blood glucose before and after exercise. If you exercise longer or in a different way than usual, check your blood glucose more often. ? Follow your sick day plan whenever you cannot eat or drink normally. Make this plan in advance withyour health care provider. Share your diabetes management plan with people in your workplace, school, and household. Check your urine for ketones when you are ill and as told by your health care provider. Carry a medical alert card or wear medical alert jewelry. Contact a health care provider if: Your blood glucose is at or above 240 mg/dL (13.3 mmol/L) for 2 days in a row. You have problems keeping your blood glucose in your target range. You have frequent episodes of hyperglycemia. Get help right away if: You have difficulty breathing. You have a change in how you think, feel, or act (mental status). You have nausea or vomiting that does not go away. These symptoms may represent a serious problem that is an emergency. Do not wait to see if the symptoms will go away. Get medical help right away. Call your local emergency services (911 in the [place] Do not drive yourself to the hospital. Summary Hyperglycemia occurs when the level of sugar (glucose) in the blood is too high. Hyperglycemia is diagnosed with a blood test to measure your blood glucose level. This blood test is usually done while you are having symptoms. Your health care provider may also do a physical exam and review your medical history. If you have diabetes, follow your diabetes management plan as told by your health care provider. Contact your health care provider if you have problems keeping your blood glucose in your target range. This information is not intended to replace advice given to you by your health care provider. Make sure you discuss any questions you have with your health care provider. Document Released: 04/01/2002 Document Revised: 06/23/2017 Document Reviewed: 06/23/2017 [employer] Patient Education 2020 [employer]. Preventing Diabetes Mellitus Complications You can take action to prevent or slow down problems that are caused by diabetes (diabetes mellitus). Following your diabetes plan and taking care of yourself can reduce your risk of serious or life-threatening complications. What actions can I take to prevent diabetes complications? Manage your diabetes Follow instructions from your health care providers about managing your diabetes. Your diabetes maybe managed by a team of health care providers who can teach you how to care for yourself and can answer questions that you have. Educate yourself about your condition so you can make healthy choices about eating and physical activity. Check your blood sugar (glucose) levels as often as directed. Your health care provider will help you decide how often to check your blood glucose level depending on your treatment goals and how wellyou are meeting them. Ask your health care provider if you should take low-dose aspirin daily and what dose is recommended for you. Taking low-dose aspirin daily is recommended to help prevent cardiovascular disease. Do not use nicotine or tobacco Do not use any products that contain nicotine or tobacco, such as cigarettes and e-cigarettes. If you need help quitting, ask your health care provider. Nicotine raises your risk for diabetes problems. If you quit using nicotine: You will lower your risk for heart attack, stroke, nerve disease, and kidney disease. Your cholesterol and blood pressure may improve. Your blood circulation will improve. Keep your blood pressure under control Your personal target blood pressure is determined based on: Your age. Your medicines. How long you have had diabetes. Any other medical conditions you have. To control your blood pressure: Follow instructions from your health care provider about meal planning, exercise, and medicines. Make sure your health care provider checks your blood pressure at every medical visit. Monitor your blood pressure at home as told by your health care provider. Keep your cholesterol under control To control your cholesterol: Follow instructions from your health care provider about meal planning, exercise, and medicines. Have your cholesterol checked at least once a year. You may be prescribed medicine to lower cholesterol (statin). If you are not taking a statin, ask your health care provider if you should be. Controlling your cholesterol may: Help prevent heart disease and stroke. These are the most common health problems for people with diabetes. Improve your blood flow. Schedule and keep yearly physical exams and eye exams Your health care provider will tell you how often you need medical visits depending on your diabetes management plan. Keep all follow-up visits as directed. This is important so possible problems canbe identified early and complications can be avoided or treated. Every visit with your health care provider should include measuring your: ? Weight. ? Blood pressure. ? Blood glucose control. Your A1c (hemoglobin A1c) level should be checked: ? At least 2 times a year, if you are meeting your treatment goals. ? 4 times a year, if you are not meeting treatment goals or if your treatment goals have changed. Your blood lipids (lipid profile) should be checked yearly. You should also be checked yearly for protein in your urine (urine microalbumin). If you have type 1 diabetes, get an eye exam 3 5 years after you are diagnosed, and then once a year after your first exam. If you have type 2 diabetes, get an eye exam as soon as you are diagnosed, and then once a year after your first exam. Keep your vaccines current It is recommended that you receive: A flu (influenza) vaccine every year. A pneumonia (pneumococcal) vaccine and a hepatitis B vaccine. If you are age 65 or older, you may get the pneumonia vaccine as a series of two separate shots. Ask your health care provider which other vaccines may be recommended. Take care of your feet Diabetes may cause you to have poor blood circulation to your legs and feet. Because of this, taking care of your feet is very important. Diabetes can cause: The skin on the feet to get thinner, break more easily, and heal more slowly. Nerve damage in your legs and feet, which results in decreased feeling. You may not notice minor injuries that could lead to serious problems. To avoid foot problems: Check your skin and feet every day for cuts, bruises, redness, blisters, or sores. Schedule a foot exam with your health care provider once every year. This exam includes: ? Inspecting of the structure and skin of your feet. ? Checking the pulses and sensation in your feet. Make sure that your health care provider performs a visual foot exam at every medical visit. Take care of your teeth People with poorly controlled diabetes are more likely to have gum (periodontal) disease. Diabetes can make periodontal diseases harder to control. If not treated, periodontal diseases can lead to tooth loss. To prevent this: [place] your teeth twice a day. Floss at least once a day. Visit your dentist 2 times a year. Drink responsibly Limit alcohol intake to no more than 1 drink a day for non women and 2 drinks a day for men. One drink equals 12 oz of beer, 5 oz of wine, or 1 oz of hard liquor. It is important to eat food when you drink alcohol to avoid low blood glucose (hypoglycemia). Avoidalcohol if you: Have a history of alcohol abuse or dependence. Are . Have liver disease, pancreatitis, advanced neuropathy, or severe hypertriglyceridemia. Lessen stress Living with diabetes can be stressful. When you are experiencing stress, your blood glucose may be affected in two ways: Stress hormones may cause your blood glucose to rise. You may be distracted from taking good care of yourself. Be aware of your stress level and make changes to help you manage challenging situations. To lower your stress levels: Consider joining a support group. Do planned relaxation or meditation. Do a hobby that you enjoy. Maintain healthy relationships. Exercise regularly. Work with your health care provider or a mental health professional. Summary You can take action to prevent or slow down problems that are caused by diabetes (diabetes mellitus). Following your diabetes plan and taking care of yourself can reduce your risk of serious or life-threatening complications. Follow instructions from your health care providers about managing your diabetes. Your diabetes maybe managed by a team of health care providers who can teach you how to care for yourself and can answer questions that you have. Your health care provider will tell you how often you need medical visits depending on your diabetes management plan. Keep all follow-up visits as directed. This is important so possible problems canbe identified early and complications can be avoided or treated. This information is not intended to replace advice given to you by your health care provider. Make sure you discuss any questions you have with your health care provider. Document Released: 06/23/2012 Document Revised: 01/04/2019 Document Reviewed: 07/05/2017 [employer] Patient Education 2020 [employer] Additional Information VACCINATE! IT SAVES LIVES! Members of the community who have not yet received the COVID-19 vaccine and would like to receive it can visit one of [facility] vaccine clinics. There are many vaccine clinic locations within the [facility]. For locations and available times, please visit https://gettheshot.coronavirus.[place].gov/. It is important to note that some COVID mobile vaccine clinics are held outdoors and may be canceled in rainy or stormy conditions. To learn more about pediatric vaccinations (ages 5-11), we invite you to visit the [facility] webpage. [email or web address].[email or web address]/[email or web address] learn more about the COVID-19 vaccine, we invite you to visit the CDC website for a list of frequently asked questions.https://www.cdc.gov/coronavirus/2019-ncov/vaccines/faq.html [facility] Patient Portal Access Instructions: Stay connected with your healthcare team and access your personal medical information anytime with the [facility] Patient Portal. Please follow the directions below to create your [facility] account: 1.Access the email account you provided upon registration to the hospital/physician office.2.Look for an invitation email from [facility].3.Open the email and access the invitation link: AcceptInvitation to [facility].4.Fill in the required milton to create your account. To access your account, visit [email or web address]. Click the blue button labeled Access Patient Portal and then log in with the username and password that you created in the steps above. You will be able to view your test results, lab results, a summary of your visits, upcoming appointments and more. There is also a convenient messaging option where you can send secure messages to your p rovider. In addition, you will have the ability to download any documents or summaries to your computer and/or send the information securely to a physician. Remember that your healthcare information is confidential, so carefully consider who you will allowto register on the [facility] Patient Portal for access to your information. You can also access the [facility] Patient Portal on the [facility] gisela. Simply click on Patient Portal and then log into your account. If you would like to receive a full copy of your medical records, please contact the [facility] Medical Records Department by calling [phone], Friday through Friday between 8 a.m. and 4:30 p.m. HOW TO SAFELY DISPOSE OF PRESCRIPTION MEDICATIONS Please use one of the following methods to safely dispose of your unused medications. 1.Use a drug disposal kit: the drug disposal pouch allows you to safely discard your old and unuseddrugs. Ask your nurse to give you one when you are discharged.2.Visit a local take-back location: Many local pharmacies and police departments have programs that collect old and unwanted prescriptiondrugs. Call your local pharmacy or go to http://[employer].EcoVadis/3G6Du3z to find one close to you.3.Make use of household items: Use cat litter or old coffee grounds to dispose medications if other options arenot available. Mix your drugs with these household products, seal them in an airtight container andthrow it into the garbage. Call [facility]: [phone] to be sure your drugs can be disposed of in this way. Some medicines may require a different approach.4.Never flush your medications down the toilet. IF YOU HAVE BEEN PRESCRIBED AN OPIOID FOR PAIN If you have been prescribed an opioid (such as hydrocodone, oxycodone or morphine), it is critical to understand the possible side effects and risks of opioid pain medications. Even when taken as directed, opioids can have several side effects including: Tolerance, meaning you might need to take more of a medication for the same pain relief. Nausea, vomiting and/or constipation. Sleepiness, dizziness, dry mouth, confusion, depression or itching. Physical dependence, meaning you have withdrawal symptoms when a medication is stopped, can develop within a few days. KNOW YOUR RESPONSIBILITIES It is important to know exactly how much and how often to take the opioid pain medications you are prescribed. Never take opioids in higher amounts or more often than prescribed. Do not combine opioids with alcohol or other drugs that cause drowsiness, such as benzodiazepines, also known as benzos, including diazepam and alprazolam, muscle relaxants or sleep aids. Never sell or share prescription opioids. This is illegal. Store opioids in a secure place and out of reach of others (including children, family, friends and visitors). The last page of this document has been signed and retained as a CHART COPY. Signatures Patient Education Materials Hyperglycemia Preventing Diabetes Mellitus Complications Medication Leaflets cefdinir My discharge plan and instructions have been reviewed and explained to me and I,NADIA ANGLIN understand my current condition and have read and understand these discharge instructions. I have received a written copy of the plan/instructions. If I have questions, I am aware that I should contact my doctor. Patient/Enrollment Services Dean Signature: Date/Time: Relationship to Patient: Witness Name/Signature: Date/Time: [facility]08-27-2023 Hospital Discharge instructions Patient Education 06/15/2023 10:57:14 Hyperglycemia Hyperglycemia Hyperglycemia occurs when the level of sugar (glucose) in the blood is too high. Glucose is a type of sugar that provides the body's main source of energy. Certain hormones (insulin and glucagon) control the level of glucose in the blood. Insulin lowers blood glucose, and glucagon increases blood glucose. Hyperglycemia can result from having too little insulin in the bloodstream, or from the bodynot responding normally to insulin. Hyperglycemia occurs most often in people who have diabetes (diabetes mellitus), but it can happen in people who do not have diabetes. It can develop quickly, and it can be life-threatening if it causes you to become severely dehydrated (diabetic ketoacidosis or hyperglycemic hyperosmolar state). Severe hyperglycemia is a medical emergency. What are the causes? If you have diabetes, hyperglycemia may be caused by: Diabetes medicine. Medicines that increase blood glucose or affect your diabetes control. Not eating enough, or not eating often enough. Changes in physical activity level. Being sick or having an infection. If you have prediabetes or undiagnosed diabetes: Hyperglycemia may be caused by those conditions. If you do not have diabetes, hyperglycemia may be caused by: Certain medicines, including steroid medicines, beta-blockers, epinephrine, and thiazide diuretics. Stress. Serious illness. Surgery. Diseases of the pancreas. Infection. What increases the risk? Hyperglycemia is more likely to develop in people who have risk factors for diabetes, such as: Having a family member with diabetes. Having a gene for type 1 diabetes that is passed from parent to child (inherited). Living in an area with cold weather conditions. Exposure to certain viruses. Certain conditions in which the body's disease-fighting (immune) system attacks itself (autoimmune disorders). Being overweight or obese. Having an inactive (sedentary) lifestyle. Having been diagnosed with insulin resistance. Having a history of prediabetes, gestational diabetes, or polycystic ovarian syndrome (PCOS). Being of Dutch-, -Dutch, /, or / descent. What are the signs or symptoms? Hyperglycemia may not cause any symptoms. If you do have symptoms, they may include early warning signs, such as: Increased thirst. Hunger. Feeling very tired. Needing to urinate more often than usual. Blurry vision. Other symptoms may develop if hyperglycemia gets worse, such as: Dry mouth. Loss of appetite. Fruity-smelling breath. Weakness. Unexpected or rapid weight gain or weight loss. Tingling or numbness in the hands or feet. Headache. Skin that does not quickly return to normal after being lightly pinched and released (poor skin turgor). Abdominal pain. Cuts or bruises that are slow to heal. How is this diagnosed? Hyperglycemia is diagnosed with a blood test to measure your blood glucose level. This blood test is usually done while you are having symptoms. Your health care provider may also do a physical exam and review your medical history. You may have more tests to determine the cause of your hyperglycemia, such as: A fasting blood glucose (FBG) test. You will not be allowed to eat (you will fast) for at least 8 hours before a blood sample is taken. An A1c (hemoglobin A1c) blood test. This provides information about blood glucose control over the previous 2 3 months. An oral glucose tolerance test (OGTT). This measures your blood glucose at two times: ?After fasting. This is your baseline blood glucose level. ?Two hours after drinking a beverage that contains glucose. How is this treated? Treatment depends on the cause of your hyperglycemia. Treatment may include: Taking medicine to regulate your blood glucose levels. If you take insulin or other diabetes medicines, your medicine or dosage may be adjusted. Lifestyle changes, such as exercising more, eating healthier foods, or losing weight. Treating an illness or infection, if this caused your hyperglycemia. Checking your blood glucose more often. Stopping or reducing steroid medicines, if these caused your hyperglycemia. If your hyperglycemia becomes severe and it results in hyperglycemic hyperosmolar state, you must be hospitalized and given IV fluids. Follow these instructions at home: General instructions Take cyho-lkv-pnqnzah and prescription medicines only as told by your health care provider. Do not use any products that contain nicotine or tobacco, such as cigarettes and e-cigarettes. If you need help quitting, ask your health care provider. Limit alcohol intake to no more than 1 drink per day for non women and 2 drinks per day formen. One drink equals 12 oz of beer, 5 oz of wine, or 1 oz of hard liquor. Learn to manage stress. If you need help with this, ask your health care provider. Keep all follow-up visits as told by your health care provider. This is important. Eating and drinking Maintain a healthy weight. Exercise regularly, as directed by your health care provider. Stay hydrated, especially when you exercise, get sick, or spend time in hot temperatures. Eat healthy foods, such as: ?Lean proteins. ?Complex carbohydrates. ?Fresh fruits and vegetables. ?Low-fat dairy products. ?Healthy fats. Drink enough fluid to keep your urine clear or pale yellow. If you have diabetes: Make sure you know the symptoms of hyperglycemia. Follow your diabetes management plan, as told by your health care provider. Make sure you: ?Take your insulin and medicines as directed. ?Follow your exercise plan. ?Follow your meal plan. Eat on time, and do not skip meals. ?Check your blood glucose as often as directed. Make sure to check your blood glucose before and after exercise. If you exercise longer or in a different way than usual, check your blood glucose moreoften. ?Follow your sick day plan whenever you cannot eat or drink normally. Make this plan in advance with your health care provider. Share your diabetes management plan with people in your workplace, school, and household. Check your urine for ketones when you are ill and as told by your health care provider. Carry a medical alert card or wear medical alert jewelry. Contact a health care provider if: Your blood glucose is at or above 240 mg/dL (13.3 mmol/L) for 2 days in a row. You have problems keeping your blood glucose in your target range. You have frequent episodes of hyperglycemia. Get help right away if: You have difficulty breathing. You have a change in how you think, feel, or act (mental status). You have nausea or vomiting that does not go away. These symptoms may represent a serious problem that is an emergency. Do not wait to see if the symptoms will go away. Get medical help right away. Call your local emergency services (911 in the [place] Do not drive yourself to the hospital. Summary Hyperglycemia occurs when the level of sugar (glucose) in the blood is too high. Hyperglycemia is diagnosed with a blood test to measure your blood glucose level. This blood test is usually done while you are having symptoms. Your health care provider may also do a physical exam and review your medical history. If you have diabetes, follow your diabetes management plan as told by your health care provider. Contact your health care provider if you have problems keeping your blood glucose in your target range. This information is not intended to replace advice given to you by your health care provider. Make sure you discuss any questions you have with your health care provider. Document Released: 04/01/2002 Document Revised: 06/23/2017 Document Reviewed: 06/23/2017 [employer] Patient Education 2020 [employer]. 06/15/2023 10:56:48 Preventing Diabetes Mellitus Complications Preventing Diabetes Mellitus Complications You can take action to prevent or slow down problems that are caused by diabetes (diabetes mellitus). Following your diabetes plan and taking care of yourself can reduce your risk of serious or life-threatening complications. What actions can I take to prevent diabetes complications? Manage your diabetes Follow instructions from your health care providers about managing your diabetes. Your diabetes maybe managed by a team of health care providers who can teach you how to care for yourself and can answer questions that you have. Educate yourself about your condition so you can make healthy choices about eating and physical activity. Check your blood sugar (glucose) levels as often as directed. Your health care provider will help you decide how often to check your blood glucose level depending on your treatment goals and how wellyou are meeting them. Ask your health care provider if you should take low-dose aspirin daily and what dose is recommended for you. Taking low-dose aspirin daily is recommended to help prevent cardiovascular disease. Do not use nicotine or tobacco Do not use any products that contain nicotine or tobacco, such as cigarettes and e-cigarettes. If you need help quitting, ask your health care provider. Nicotine raises your risk for diabetes problems. If you quit using nicotine: You will lower your risk for heart attack, stroke, nerve disease, and kidney disease. Your cholesterol and blood pressure may improve. Your blood circulation will improve. Keep your blood pressure under control Your personal target blood pressure is determined based on: Your age. Your medicines. How long you have had diabetes. Any other medical conditions you have. To control your blood pressure: Follow instructions from your health care provider about meal planning, exercise, and medicines. Make sure your health care provider checks your blood pressure at every medical visit. Monitor your blood pressure at home as told by your health care provider. Keep your cholesterol under control To control your cholesterol: Follow instructions from your health care provider about meal planning, exercise, and medicines. Have your cholesterol checked at least once a year. You may be prescribed medicine to lower cholesterol (statin). If you are not taking a statin, ask your health care provider if you should be. Controlling your cholesterol may: Help prevent heart disease and stroke. These are the most common health problems for people with diabetes. Improve your blood flow. Schedule and keep yearly physical exams and eye exams Your health care provider will tell you how often you need medical visits depending on your diabetes management plan. Keep all follow-up visits as directed. This is important so possible problems canbe identified early and complications can be avoided or treated. Every visit with your health care provider should include measuring your: ?Weight. ?Blood pressure. ?Blood glucose control. Your A1c (hemoglobin A1c) level should be checked: ?At least 2 times a year, if you are meeting your treatment goals. ?4 times a year, if you are not meeting treatment goals or if your treatment goals have changed. Your blood lipids (lipid profile) should be checked yearly. You should also be checked yearly for protein in your urine (urine microalbumin). If you have type 1 diabetes, get an eye exam 3 5 years after you are diagnosed, and then once a year after your first exam. If you have type 2 diabetes, get an eye exam as soon as you are diagnosed, and then once a year after your first exam. Keep your vaccines current It is recommended that you receive: A flu (influenza) vaccine every year. A pneumonia (pneumococcal) vaccine and a hepatitis B vaccine. If you are age 65 or older, you may get the pneumonia vaccine as a series of two separate shots. Ask your health care provider which other vaccines may be recommended. Take care of your feet Diabetes may cause you to have poor blood circulation to your legs and feet. Because of this, taking care of your feet is very important. Diabetes can cause: The skin on the feet to get thinner, break more easily, and heal more slowly. Nerve damage in your legs and feet, which results in decreased feeling. You may not notice minor injuries that could lead to serious problems. To avoid foot problems: Check your skin and feet every day for cuts, bruises, redness, blisters, or sores. Schedule a foot exam with your health care provider once every year. This exam includes: ?Inspecting of the structure and skin of your feet. ?Checking the pulses and sensation in your feet. Make sure that your health care provider performs a visual foot exam at every medical visit. Take care of your teeth People with poorly controlled diabetes are more likely to have gum (periodontal) disease. Diabetes can make periodontal diseases harder to control. If not treated, periodontal diseases can lead to tooth loss. To prevent this: [place] your teeth twice a day. Floss at least once a day. Visit your dentist 2 times a year. Drink responsibly Limit alcohol intake to no more than 1 drink a day for non women and 2 drinks a day for men. One drink equals 12 oz of beer, 5 oz of wine, or 1 oz of hard liquor. It is important to eat food when you drink alcohol to avoid low blood glucose (hypoglycemia). Avoidalcohol if you: Have a history of alcohol abuse or dependence. Are . Have liver disease, pancreatitis, advanced neuropathy, or severe hypertriglyceridemia. Lessen stress Living with diabetes can be stressful. When you are experiencing stress, your blood glucose may be affected in two ways: Stress hormones may cause your blood glucose to rise. You may be distracted from taking good care of yourself. Be aware of your stress level and make changes to help you manage challenging situations. To lower your stress levels: Consider joining a support group. Do planned relaxation or meditation. Do a hobby that you enjoy. Maintain healthy relationships. Exercise regularly. Work with your health care provider or a mental health professional. Summary You can take action to prevent or slow down problems that are caused by diabetes (diabetes mellitus). Following your diabetes plan and taking care of yourself can reduce your risk of serious or life-threatening complications. Follow instructions from your health care providers about managing your diabetes. Your diabetes maybe managed by a team of health care providers who can teach you how to care for yourself and can answer questions that you have. Your health care provider will tell you how often you need medical visits depending on your diabetes management plan. Keep all follow-up visits as directed. This is important so possible problems canbe identified early and complications can be avoided or treated. This information is not intended to replace advice given to you by your health care provider. Make sure you discuss any questions you have with your health care provider. Document Released: 06/23/2012 Document Revised: 01/04/2019 Document Reviewed: 07/05/2017 [employer] Patient Education 2020 [employer]. Follow Up Care 06/12/2023 12:09:18 With:EMILY GATES APRN-CURRICULUM DEVELOPMENT MANAGER Address: [address] [place] [address] [place] [address]- [phone] When:06/30/2023 13:30:00 Comments:This is your first appt with new PCP. [facility] 08-26-2023 Note. MICRO - Microbiology PROCEDURE: Urine Culture [*1] SOURCE: Urine, Clean Catch BODY SITE: COLLECTED DATE/TIME: 06/12/2023 21:14 EDT RECEIVED DATE/TIME: 06/13/2023 15:08 EDT START DATE/TIME: 06/13/2023 15:08 EDT FREE TEXT SOURCE: FINAL REPORTS Final Report [] Verified Date/Time/Personnel: 06/14/2023 16:51 EDT 10,000 - 50,000 cfu/ml Multiple bacterial morphotypes present. Probable Contamination. Suggest recollection if clinically indicated. Performing Locations *1: This test was performed at: [facility], [address] [place] [address], [id number] , [facility] ([place])06-14-2023 Note Date of Service 06/14/2023 Chief Complaint pyelonephritis Subjective Patient seen and evaluated this morning while resting in bed. She is complaining of abdominal cramping this morning. Patient asked if her bowels have moved recently and she states not for a few days. She adds that she has a lot of pain when she needs to move her bowels and that she felt better yesterday. Patient advised that her urine culture is still pending. We are hoping to have it back later today or tomorrow morning. Her white count continues to drop every day. Patient denies any fever, chills, cough, shortness of breath, chest pain, nausea or dysuria. All questions answered. Objective Vitals and Measurements T: 36.6 C (Oral) TMIN: 36.6 C (Oral) TMAX: 37.1 C (Oral) HR: 97(Monitored) RR: 20 BP: 139/82 SpO2: 91% WT: 121.2 kg Intake and Output 7AM Yesterday to 7AM Today Intake and Output (Last 24 hours) Intake Output Urine Voided 500.00 Urine Count 1.00 Total Summary Total Intake 0.00 Total Output 500.00 Fluid Balance -500.00 Physical Exam General: No acute distress. Patient is alert and appropriate. Skin: No rash. Skin is warm, dry and intact. HEENT: Head is normocephalic, atraumatic. Pupils are equal, round and reactive. Neck: Supple. No lymphadenopathy, thyromegaly. Lungs: Bilaterally clear but diminished without crepitation or wheeze. Unlabored. Heart: Heart is regular rhythm, S1, S2. No murmurs, gallops or rubs. Abdomen: Abdomen is soft, nontender to palpation, obese. Bowels sounds present in all quadrants. Extremities: No clubbing, cyanosis, or edema. Peripheral pulses palpable. No calf tenderness. Neurological: Patient is awake and alert to person, place and time. Following simple commands, moving all extremities. Weight Current Weight Dosing Weight: 120.6 kg (06/13/23) Current Weight: 121.2 kg (06/14/23) Dosing Weight: 114 kg (06/12/23) Medications Medications (20) Active Scheduled: (8) cefTRIAXone 1 gram(s), IV Piggyback, qDay docusate-senna (Senokot S) 50 mg-8.6 mg Tablet 1 tab(s), Oral, BID famotidine 20 mg tablet 20 mg 1 tab(s), Oral, q24h gabapentin 300 mg Capsule 600 mg 2 cap(s), Oral, BID glyburide 5 mg tablet 5 mg 1 tab(s), Oral, BIDM insulin glargine 100 units/ml solution 18 unit(s) 0.18 mL, Subcutaneous, qHS insulin lispro 100 units/mL Soln (3 mL) Give 0-5 units/dose, Subcutaneous, TIDAC pantoprazole 40 mg VIAL 40 mg, IV Push, qDayAC Continuous: (0) PRN: (12) acetaminophen 325 mg Tablet 650 mg 2 tab(s), Oral, q4h acetaminophen 325 mg Tablet 650 mg 2 tab(s), Oral, q4h acetaminophen-HYDROcodone 325-5 mg tablet 1 tab(s), Oral, q4h albuterol - ipratropium 2.5 mg-0.5 mg/3 mL Inhal Suzette UD 3 mL, Inhalation, q4hRT benzonatate 100 mg Capsule 100 mg 1 cap(s), Oral, TID calcium carbonate 500 mg Chewable 500 mg 1 tab(s), Chewed, TID cyclobenzaprine 10 mg Tablet 10 mg 1 tab(s), Oral, TID guaifenesin 100 mg/5 mL 120 mL liquid 200 mg 10 mL, Oral, q4h melatonin 3 mg tablet 6 mg 2 tab(s), Oral, qHS morphine 2 mg/mL 1 mL syringe 2 mg 1 mL, IV Push, q3h ondansetron 2 mg/ 1 mL 2 mL INJ 4 mg 2 mL, IV Push, q4h polyethylene glycol 3350 - UD packet 17 gram(s) 15 mL, Oral, BID Lab Results 06/14 05:36 WBC: 11.6 H Hgb: 11.3 L Hct: 33.6 L Platelet: 105 L Neutrophil %: 74.0 Glucose Level: 129 H Sodium Level: 137 Potassium Level: 3.4 L BUN: 40 H Creatinine Lvl (s): 1.46 H 06/13 06:00 WBC: 13.0 H Hgb: 11.1 L Hct: 33.4 L Platelet: 80 L Neutrophil %: 78.5 Glucose Level: 319 H Sodium Level: 132 L Potassium Level: 3.5 BUN: 51 H Creatinine Lvl (s): 1.89 H Imaging Results and Diagnostics US Renal Result Date: June 12, 2023 Verified By: VALENTE CAMARENA MD CLINICAL STATEMENT: IMPRESSION: Normal-appearing kidneys with no obstructive uropathy. EKG No qualifying data available. Assessment/Plan 1. Acute pyelonephritis Acute, new onset *Patient treated for UTI by PCP on 06/06 with ciprofloxacin without any improvement in her symptoms,presented to ED with left flank pain, nausea and vomiting. *Continue Ceftriaxone 1 gram IV daily. *Urine culture obtained - pending. *Repeat CBC and BMP in the am. 2. Acute kidney injury Acute, new onset, unknown etiology, improving slowly, unsure of baseline *Renal ultrasound negative for obstructive uropathy. *Repeat BMP in the am. 3. Diabetes Chronic, uncontrolled *Blood sugar checks before meals and at bedtime. *Cover with sliding scale insulin. *Continue diabetic diet as tolerated. *Blood sugar goal of 180 or less and avoid hypoglycemia. *HgbA1c 12.9% this am. *Referral made to pharmacy for [facility] consult. 4. Hypertension Chronic *Continue current antihypertensives. *SBP goal of 140 or less. 5. Asthma Chronic, controlled *Continue duoneb aerosols as needed for shortness of breath/wheezing. 6. Chronic back pain Chronic *Continue current home medications. DVT prophylaxis with SCDs (platelet count 76 in ED - 105 today). Code status: Full Code. Labs, diagnostic test and progress notes reviewed as noted in HPI. Plan of care discussed with patient. All questions answered. Patient verbalizes understanding and is agreeable with plan of care. This case was discussed with collaborating physician, Dr. Twin Alba. Time Spent 30 minutes spent reviewing past diagnostic tests, reviewing lab results, vital sign trends, medicalhistory, reviewing medications and ordering home medications, examining patient, collaborating withphysician, and documenting in chart. Digitally Signed by CRISTY LUTHER on 06/14/2023 03:[address] [facility]08-25-2023 Note Date of Service 06/13/2023 Chief Complaint left flank pain Subjective Patient seen and evaluated this morning while resting in bed. She states that she is feeling a little better this morning but reports that she feels tired. She states that her abdomen is still tenderto palpation in all quadrants especially in the left upper quadrant. Patient states she is still having mild nausea, however, was able to eat most of her breakfast. Patient aware that it takes [id number] hours for the urine culture to come back. We will continue the current plan until the urine culture identifies the bacteria and we know what oral antibiotic she can go home on. Patient now aware that her HgbA1c was 12.9 on labs today. She states that she does not think her PCP has ever checked her HgbA1c. She states that she always checks her blood sugar the day she sees her PCP and gives his that result. Patient aware that this level is too high and she needs to get her blood sugars under better control. Her kidney function is not great, however, we are unsure of her baseline as she has not been here before. Long discussion on options including finding a DFP provider and using the [employer] to help manage medications. Patient will consider this. She denies any fever, chills, cough, shortness of breath, chest pain, diarrhea or dysuria. All questions answered. Objective Vitals and Measurements T: 36.7 C (Oral) TMIN: 36.5 C (Oral) TMAX: 37.0 C (Oral) HR: 100(Apical) RR: 20 BP: 126/61 SpO2: 94% HT: 172.7 cm WT: 120.6 kg BMI: 38.22 Intake and Output 7AM Yesterday to 7AM Today Intake and Output (Last 24 hours) Intake Output Urine Count 1.00 Total Summary Total Intake 0.00 Total Output 0.00 Fluid Balance 0.00 Physical Exam General: No acute distress. Patient is alert and appropriate. Skin: No rash. Skin is warm, dry and intact. HEENT: Head is normocephalic, atraumatic. Pupils are equal, round and reactive. Neck: Supple. No lymphadenopathy, thyromegaly. Lungs: Bilaterally clear but diminished without crepitation or wheeze. Unlabored. Heart: Heart is regular rhythm, S1, S2. No murmurs, gallops or rubs. Abdomen: Abdomen is soft, mildly tender to palpation especially in the left upper quadrant. Bowels sounds present in all quadrants. Extremities: No clubbing, cyanosis, or edema. Peripheral pulses palpable. No calf tenderness. Neurological: Patient is awake and alert to person, place and time. Following simple commands, moving all extremities. Weight Dosing Weight: 120.6 kg (06/13/23) Dosing Weight: 114 kg (06/12/23) Medications Medications (19) Active Scheduled: (7) cefTRIAXone 1 gram(s), IV Piggyback, qDay famotidine 20 mg tablet 20 mg 1 tab(s), Oral, q24h gabapentin 300 mg Capsule 600 mg 2 cap(s), Oral, BID glyburide 5 mg tablet 5 mg 1 tab(s), Oral, BIDM insulin glargine 100 units/ml solution 18 unit(s) 0.18 mL, Subcutaneous, qHS insulin lispro 100 units/mL Soln (3 mL) Give 0-5 units/dose, Subcutaneous, TIDAC pantoprazole 40 mg VIAL 40 mg, IV Push, qDayAC Continuous: (1) Lactated Ringers 1,000 mL 1,000 mL, Intravenous, 100 mL/hr PRN: (11) acetaminophen 325 mg Tablet 650 mg 2 tab(s), Oral, q4h acetaminophen 325 mg Tablet 650 mg 2 tab(s), Oral, q4h acetaminophen-HYDROcodone 325-5 mg tablet 1 tab(s), Oral, q4h albuterol - ipratropium 2.5 mg-0.5 mg/3 mL Inhal Suzette UD 3 mL, Inhalation, q4hRT benzonatate 100 mg Capsule 100 mg 1 cap(s), Oral, TID calcium carbonate 500 mg Chewable 500 mg 1 tab(s), Chewed, TID cyclobenzaprine 10 mg Tablet 10 mg 1 tab(s), Oral, TID guaifenesin 100 mg/5 mL 120 mL liquid 200 mg 10 mL, Oral, q4h melatonin 3 mg tablet 6 mg 2 tab(s), Oral, qHS morphine 2 mg/mL 1 mL syringe 2 mg 1 mL, IV Push, q3h ondansetron 2 mg/ 1 mL 2 mL INJ 4 mg 2 mL, IV Push, q4h Lab Results 06/13 06:00 WBC: 13.0 H Hgb: 11.1 L Hct: 33.4 L Platelet: 80 L Neutrophil %: 78.5 Glucose Level: 319 H Sodium Level: 132 L Potassium Level: 3.5 BUN: 51 H Creatinine Lvl (s): 1.89 H 06/12 12:40 WBC: 14.2 H Hgb: 12.3 Hct: 36.4 L Platelet: 76 L Neutrophil %: 80.1 H Glucose Level: 428 C Sodium Level: 128 L Potassium Level: 3.8 BUN: 50 H Creatinine Lvl (s): 1.93 H Imaging Results and Diagnostics US Renal Result Date: June 12, 2023 Verified By: VALENTE CAMARENA MD CLINICAL STATEMENT: IMPRESSION: Normal-appearing kidneys with no obstructive uropathy. EKG No qualifying data available. Assessment/Plan 1. Acute pyelonephritis Acute, new onset *Patient treated for UTI by PCP on 06/06 with ciprofloxacin without any improvement in her symptoms,presents today with left flank pain, nausea and vomiting. *Continue Ceftriaxone 1 gram IV daily. *Urine culture obtained - pending. *Repeat CBC and BMP in the am. 2. Acute kidney injury Acute, new onset, unknown etiology *Continue LR @ 100cc/hr. *Renal ultrasound negative for obstructive uropathy. *Repeat BMP in the am. 3. Diabetes Chronic, uncontrolled *Blood sugar checks before meals and at bedtime. *Cover with sliding scale insulin. *Continue diabetic diet as tolerated. *Blood sugar goal of 180 or less and avoid hypoglycemia. *HgbA1c 12.9% this am. *Referral made to pharmacy for [facility] consult. 4. Hypertension Chronic *Continue current antihypertensives. *SBP goal of 140 or less. 5. Asthma Chronic, controlled *Continue duoneb aerosols as needed for shortness of breath/wheezing. 6. Chronic back pain Chronic *Continue current home medications. DVT prophylaxis with SCDs (platelet count 76 in ED - 80 today). Code status: Full Code. Labs, diagnostic test and progress notes reviewed as noted in HPI. Plan of care discussed with patient. All questions answered. Patient verbalizes understanding and is agreeable with plan of care. This case was discussed with collaborating physician, Dr. Twin Alba. Time Spent 55 minutes spent reviewing past diagnostic tests, reviewing lab results, vital sign trends, medicalhistory, reviewing medications, greater than 20 minute discussion of A1c results and better managing diabetes, discussing plan of care with nursing, social work job titles, and pharmacy, examining patient, collaborating with physician, and documenting in chart. Digitally Signed by CRISTY LUTHER on 06/13/2023 02:[address] [facility]08-24-2023 Note ORIGINAL EXAMINATION: ULTRASOUND OF THE KIDNEYS 06/12/2023 6:03 pm COMPARISON: None. HISTORY: ORDERING SYSTEM PROVIDED HISTORY: Reason for Exam: BREONNA, r/o obstructive uropathy FINDINGS: The right kidney measures 12.4 cm x 5.7 cm x 4.9 cm, cortex thickness 14.9 mm. The left kidney measures 12.9 cm x 5.3 cm x 6.6 cm, cortex thickness 23.7 mm. Kidneys demonstrate normal cortical echogenicity. No hydronephrosis or intrarenal stones. No focal lesions. The bladder was not fully distended, volume 72 mL. Normal appearance within these confines. IMPRESSION: Normal-appearing kidneys with no obstructive uropathy. Interpreted by: Valente Camarena Preliminary Report By: Valente Camarena Electronically signed By Valente Camarena Dictated Date: 06/13/2023 12:31:26 AM Prelim Date: 06/13/2023 12:35:23 AM Sign Date: 06/13/2023 12:35:23 AM Ordering Provider: [facility]08-24-2023 Note Date of Service 06/12/2023 Chief Complaint comes in with low back pain she states she thinbks kidney infection History of Present Illness Patient is a 53-year-old female, who follows with Dr. Clifford Sarmiento with a past medical history significant for type 2 diabetes mellitus, hypertension, chronic back pain and GERD, presents to [facility] emergency department with the chief complaint of low back pain and nausea and vomiting. Patient states that she was diagnosed with a urinary tract infection by her PCP on 06/06 and prescribed Ciprofloxacin. She has been taking this antibiotic for the past 5 days without any improvement her in symptoms. She states that yesterday she developed left flank pain, nausea and vomiting.She denies any fever, cough, shortness of breath, chest pain, or dysuria. In the emergency department, white blood cell count 14.2. CBC remarkable for hematocrit 36.4 and platelet count 76. BMP significant for glucose 428, sodium 128, BUN 50 and creatinine 1.93. Urinalysissignificant for large amount of blood, small leukocyte esterace, loaded urine RBC, 15-25 urine WBC and 4+ bacteria. Patient was administered 1 liter of NS, 2 grams ceftriaxone IV, 4 mg morphine IV and 4 mg zofran IV in the ED. The case was discussed with the ED physician who recommended pyelonephritis and failure of outpatient therapy. Patient will be transferred to medical surgical unit for further evaluation and treatment. We will continue ceftriaxone 1 gram IV daily. We will continue LR @ 100cc/hr. We will check urine culture. We will obtain renal ultrasound in the am. Repeat CBC and BMP in the am. Review of Systems Review of Systems: Reviewed in detail, including general health, HEENT, cardiovascular, respiratory, gastrointestinal, genitourinary, endocrine, musculoskeletal, neurologic, vascular, skin, and psychiatric. All are negative except for those listed in the History of Present Illness. Physical Exam Vitals and Measurements T: 37.3 C (Oral) HR: 98 RR: 20 BP: 120/72 SpO2: 95% HT: 172.7 cm WT: 114 kg Weight Dosing Weight: 114 kg (06/12/23) General: No acute distress. Patient is alert and appropriate. Skin: No rash. Skin is warm, dry and intact. HEENT: Head is normocephalic, atraumatic. Pupils are equal, round and reactive. Neck: Supple. No lymphadenopathy, thyromegaly. Lungs: Bilaterally clear but diminished without crepitation or wheeze. Unlabored. Heart: Heart is regular rhythm, S1, S2. No murmurs, gallops or rubs. Abdomen: Abdomen is soft, mildly tender to palpation in bilateral lower quadrants. Bowels sounds present in all quadrants. Extremities: No clubbing, cyanosis, or edema. Peripheral pulses palpable. No calf tenderness. Neurological: Patient is awake and alert to person, place and time. Following simple commands, moving all extremities. Lab Results 06/12 12:40 WBC: 14.2 H Hgb: 12.3 Hct: 36.4 L Platelet: 76 L Neutrophil %: 80.1 H Glucose Level: 428 C Sodium Level: 128 L Potassium Level: 3.8 BUN: 50 H Creatinine Lvl (s): 1.93 H Assessment/Plan 1. Acute pyelonephritis Acute, new onset *Patient treated for UTI by PCP on 06/06 with ciprofloxacin without any improvement in her symptoms,presents today with left flank pain, nausea and vomiting. *Continue Ceftriaxone 1 gram IV daily. *Send urine for culture. *Repeat CBC and BMP in the am. 2. Acute kidney injury Acute, new onset, unknown etiology *Continue LR @ 100cc/hr. *Send patient for renal ultrasound in the am to rule out obstructive uropathy. *Repeat BMP in the am. 3. Diabetes Chronic, uncontrolled *Blood sugar checks before meals and at bedtime. *Cover with sliding scale insulin. *Start diabetic diet as tolerated. *Blood sugar goal of 180 or less and avoid hypoglycemia. *Check HgbA1c in am. 4. Hypertension Chronic *Continue current antihypertensives. *SBP goal of 140 or less. 5. Asthma Chronic, controlled *Start duoneb aerosols as needed for shortness of breath/wheezing. 6. Chronic back pain Chronic *Continue current home medications. DVT prophylaxis with SCDs (platelet count 76 in ED). Code status: Full Code. Labs, diagnostic test and progress notes reviewed as noted in HPI. Plan of care discussed with patient. All questions answered. Patient verbalizes understanding and is agreeable with plan of care. This case was discussed with collaborating physician, Dr. Twin Alba. 75 minutes spent reviewing past diagnostic tests, reviewing lab results, vital sign trends, medicalhistory, reviewing medications and ordering home medications, examining patient, collaborating withphysician, and documenting in chart. Problem List/Past Medical History Ongoing Asthma Chronic back pain Hypertension Historical No qualifying data Procedure/Surgical History delivery Medications Home Medications (15) Active albuterol 2.5 mg/3 mL (0.083%) inhalation solution 2.5 mg = 3 mL, PRN, Inhalation, q6h Basaglar 100 unit(s)/mL 3 mL KwikPen 18 unit(s), Subcutaneous, qHS cephalexin 500 mg oral capsule 500 mg = 1 cap(s), Oral, QID cephalexin 500 mg oral capsule 500 mg = 1 cap(s), Oral, QID famotidine 20 mg oral tablet 20 mg = 1 tab(s), Oral, BID Flexeril 10 mg oral tablet 10 mg = 1 tab(s), PRN, Oral, TID gabapentin 100 mg oral capsule 200 mg = 2 cap(s), Oral, BID glyBURIDE 5 mg oral tablet 5 mg = 1 tab(s), Oral, BIDM metFORMIN 500 mg oral tablet 500 mg = 1 tab(s), Oral, BID naproxen 500 mg oral tablet 500 mg = 1 tab(s), PRN, Oral, BID Conway 325- 5 mg oral tablet 1 tab(s), PRN, Oral, q6h Conway 325- 5 mg oral tablet 1 tab(s), PRN, Oral, q6h omeprazole 20 mg oral delayed release capsule 20 mg = 1 cap(s), Oral, BIDAC Percocet 5 mg-325 mg oral tablet 1 tab(s), PRN, Oral, q4h ProAir HFA MDI (90 mcg/inh) inhalation aerosol 2 puff(s), PRN, Inhalation, q4h Allergies Primatene Mist Inhaler codeine erythromycin sulfamethoxazole Social History Smoking Status - 04/15/2016 Current every day smoker Alcohol - No Risk, 05/30/2019 Use: Never., 05/30/2019 Substance Abuse - No Risk, 05/30/2019 Use: Never., 05/30/2019 Tobacco - No Risk, 05/30/2019 Tobacco Use: Never (less than 100 in lifetime)., 05/30/2019 Family History Family history is unknown Immunizations No qualifying data available. Code Status Code Status - Ordered -- 06/12/23 15:37:00 EDT, Full Code, Constant Order Digitally Signed by CRISTY LUTHER on 06/12/2023 04:[address] [facility]08-24-2023 Evaluation + Plan noteExtracted from: Title:History and Physical Author:CRISTY LUTHERCURRICULUM DEVELOPMENT MANAGER Date:06/12/23 1. Acute pyelonephritis Acute, new onset *Patient treated for UTI by PCP on 06/06 with ciprofloxacin without any improvement in her symptoms, presents today with left flank pain, nausea and vomiting. *Continue Ceftriaxone 1 gram IV daily. *Send urine for culture. *Repeat CBC and BMP in the am. 2. Acute kidney injury Acute, new onset, unknown etiology *Continue LR @ 100cc/hr. *Send patient for renal ultrasound in the am to rule out obstructive uropathy. *Repeat BMP in the am. 3. Diabetes Chronic, uncontrolled *Blood sugar checks before meals and at bedtime. *Cover with sliding scale insulin. *Start diabetic diet as tolerated. *Blood sugar goal of 180 or less and avoid hypoglycemia. *Check HgbA1c in am. 4. Hypertension Chronic *Continue current antihypertensives. *SBP goal of 140 or less. 5. Asthma Chronic, controlled *Start duoneb aerosols as needed for shortness of breath/wheezing. 6. Chronic back pain Chronic *Continue current home medications. DVT prophylaxis with SCDs (platelet count 76 in ED). Code status: Full Code. Labs, diagnostic test and progress notes reviewed as noted in HPI. Plan of care discussed with patient. All questions answered. Patient verbalizes understanding and is agreeable with plan of care. This case was discussed with collaborating physician, Dr. Twin Alba. 75 minutes spent reviewing past diagnostic tests, reviewing lab results, vital sign trends, medical history, reviewing medications and ordering home medications, examining patient, collaborating with physician, and documenting in chart. Future Appointments Appointment Date:06/16/2023 08:00:00 AM Scheduled Provider: Location:[facility] Appointment Type:[facility] - Comprehensive Meds Review Appointment Date:06/30/2023 01:30:00 PM Scheduled Provider:EMILY GATES Location:[facility] Appointment Type:[facility] Follow Up [facility] 03-18-2023 Hospital Discharge instructions Patient Education 01/04/2023 11:54:40 Hypertension, Established Established High Blood Pressure High blood pressure (hypertension) is a chronic disease. Often, healthcare providers don t know what causes it. But it can be caused by certain health conditions and medicines. If you have high blood pressure, you may not have any symptoms. If you do have symptoms, they may include headache, dizziness, changes in your vision, chest pain, and shortness of breath. But even without symptoms, high blood pressure that s not treated raises your risk for heart attack, heart failure, and stroke. High blood pressure is a serious health risk and shouldn t be ignored. Blood pressure measurements are given as 2 numbers. Systolic blood pressure is the upper number. This is the pressure when the heart contracts. Diastolic blood pressure is the lower number. This is the pressure when the heart relaxes between beats. You will see your blood pressure readings written together. For example, a person with a systolic pressure of 118 and a diastolic pressure of 78 will have 118/78 written in the medical record. Blood pressure is categorized as normal, elevated, or stage 1 or stage 2 high blood pressure: Normal blood pressure is systolic of less than 120 and diastolic of less than 80 (120/80) Elevated blood pressure is systolic of 120 to 129 and diastolic less than 80 Stage 1 high blood pressure is systolic is 130 to 139 or diastolic between 80 to 89 Stage 2 high blood pressure is when systolic is 140 or higher or the diastolic is 90 or higher Home care If you have high blood pressure, follow these home care guidelines to help lower your blood pressure. If you are taking medicines for high blood pressure, these methods may reduce or end your need for medicines in the future. Start a weight-loss program if you are overweight. Cut back on how much salt you get in your diet. Here s how to do this: oDon t eat foods that have a lot of salt. These include olives, pickles, smoked meats, and salted potato chips. oDon t add salt to your food at the table. oUse only small amounts of salt when cooking. Start an exercise program. Talk with your healthcare provider about the type of exercise program that would be best for you. It doesn't have to be hard. Even brisk walking for 20 minutes 3 times a week is a good form of exercise. Don t take medicines that stimulate the heart. This includes many kuuj-yfr-dqupelg cold and sinus decongestant pills and sprays, as well as diet pills. Check the warnings about high blood pressure onthe label. Before buying any bdfw-ygc-krqmtrz medicines or supplements, always ask the pharmacist about the product's potential interaction with your high blood pressure and your high blood pressure medicines. Stimulants such as amphetamine or cocaine could be deadly for someone with high blood pressure. Never take these. Limit how much caffeine you get in your diet. Switch to caffeine-free products. Stop smoking. If you are a long-time smoker, this can be hard. Talk to your healthcare provider about medicines and nicotine replacement options to help you. Also, enroll in a stop-smoking program tomake it more likely that you will quit for good. Learn how to handle stress. This is an important part of any program to lower blood pressure. Learnabout relaxation methods like meditation, yoga, or biofeedback. If your provider prescribed medicines, take them exactly as directed. Missing doses may cause your blood pressure get out of control. If you miss a dose or doses, check with your healthcare provider or pharmacist about what to do. Consider buying an automatic blood pressure machine to check your blood pressure at home. Ask your provider for a recommendation. You can get one of these at most pharmacies. The [employer] recommends the following guidelines for home blood pressure monitoring: Don't smoke or drink coffee for 30 minutes before taking your blood pressure. Go to the bathroom before the test. Relax for 5 minutes before taking the measurement. Sit with your back supported (don't sit on a couch or soft chair); keep your feet on the floor uncrossed. Place your arm on a solid flat surface (like a table) with the upper part of the arm at heartlevel. Place the middle of the cuff directly above the bend of the elbow. Check the monitor's instruction manual for an illustration. Take multiple readings. When you measure, take 2 to 3 readings one minute apart and record all of the results. Take your blood pressure at the same time every day, or as your healthcare provider recommends. Record the date, time, and blood pressure reading. Take the record with you to your next medical appointment. If your blood pressure monitor has a built-in memory, simply take the monitor with you to your next appointment. Call your provider if you have several high readings. Don't be frightened by a single high blood pressure reading, but if you get several high readings, check in with your healthcare provider. Note: When blood pressure reaches a systolic (top number) of 180 or higher OR diastolic (bottom number) of 110 or higher, seek emergency medical treatment. Follow-up care You will need to see your healthcare provider regularly. This is to check your blood pressure and to make changes to your medicines. Make a follow-up appointment as directed. Bring the record of yourhome blood pressure readings to the appointment. When to seek medical advice Call your healthcare provider right away if any of these occur: Blood pressure reaches a systolic (upper number) of 180 or higher OR a diastolic (bottom number) of110 or higher Chest pain or shortness of breath Severe headache Throbbing or rushing sound in the ears Nosebleed Sudden severe pain in your belly (abdomen) Extreme drowsiness, confusion, or fainting Dizziness or spinning sensation (vertigo) Weakness of an arm or leg or one side of the face You have problems speaking or seeing [id number] [employer]. [address] [place] [address], [place] [address]. All rights reserved. This information is not intended as a substitute for professional medical care. Always follow yourhealthcare professional's instructions. 01/04/2023 10:57:34 Knee Pain with Possible Torn Meniscus Knee Pain with Possible Torn Meniscus The meniscus is a tough cartilage pad that cushions the inside of the knee joint. It helps absorb the shock from movement. It also spreads the weight of your body evenly across the knee joint. This prevents excess wear and tear to the bones of that joint. The most common causes of meniscal tears are injuries, especially related to sports and degenerative disease that happens with aging. A meniscus tear commonly happens during a twisting injury when the knee is bent. This causes pain, swelling, reduced movement of the knee, and trouble walking. There may be popping, clicking, joint locking or inability to completely straighten the knee. Ligaments of the knee may also be injured. A torn meniscus is diagnosed by physical exam and X-rays. In the case of a severe injury, the knee may be too painful to examine fully. A more accurate exam can be done after the initial swelling goes down. An MRI may be done to make a final diagnosis. If your healthcare provider suspects a meniscal injury, you will treat your knee with ice and rest and preventing movement of the knee. A splint or knee brace that keeps your leg straight may be put on to protect the joint. Depending on the severity of the injury, surgery may be needed. A cartilageinjury may take 4 to 12 weeks to heal depending on how bad it is. Home care Stay off the injured leg as much as possible until you can walk on it without pain. If you have a lot of pain when walking, crutches or a walker may be prescribed. (These can be rented or bought at many pharmacies and surgical or orthopedic supply stores). Follow your healthcare provider's advice about when to begin putting weight on that leg. Keep your leg elevated to reduce pain and swelling. When sleeping, place a pillow under the injuredleg. When sitting, support the injured leg so it is above heart level. This is very important during the first 48 hours. Apply an ice pack over the injured area for 15 to 20 minutes every 3 to 6 hours. You should do thisfor the first 24 to 48 hours. You can make an ice pack by filling a plastic bag that seals at the top with ice cubes and then wrapping it with a thin towel. Continue to use ice packs for relief of pain and swelling as needed. As the ice melts, be careful not to get your wrap, splint, or cast wet. After 48 hours, apply heat (warm shower or warm bath) for 15 to 20 minutes several times a day, or alternate ice and heat. You can place the ice pack directly over the splint. If you have to wear a szru-cyj-njma knee brace, you can open it to apply the ice pack, or heat, directly to the knee. Never put ice directly on the skin. Always wrap the ice in a towel or other type of cloth. You may use rjxz-hpc-czsksqc pain medicine to control pain, unless another pain medicine was prescribed. If you have chronic liver or kidney disease or ever had a stomach ulcer or gastrointestinal bleeding, talk with your healthcare provider before using these medicines. If you were given a splint, keep it dry at all times. Bathe with your splint out of the water. Protect it with a large plastic bag that is rubber-banded or taped at the top end. If a fiberglass splint gets wet, you can dry it with a chairman president and chief executive officer set on cool. If you have a fhdi-gqj-fsbi knee brace, you can remove this to bathe, unless told otherwise. Check with your healthcare provider before returning to sports or full work duties. Follow-up care Follow up with your healthcare provider, or as advised. This is usually within 1 to 2 weeks. Further testing may be required to check the extent of your injury. If X-rays were taken, you will be told of any new findings that may affect your care. Call 911 Call 911 if you have: Shortness of breath Chest pain When to seek medical advice Call your healthcare provider right away if any of these occur: Toes or foot gets swollen, cold, blue, numb, or tingly Pain or swelling spreads over the knee or calf Warmth or redness appears over the knee or calf Fever of 100.4 F (38 C) or higher, or as directed by your healthcare provider [employer] [id number] [employer]. [address] [place] [address], [place] [address]. All rights reserved. This information is not intended as a substitute for professional medical care. Always follow yourhealthcare professional's instructions. Follow Up Care 01/04/2023 10:28:41 With:your pcp Address:Unknown When:2-4 days Comments:Schedule appointment as soon as possibleFollow up for blood pressure With:Demetrice ortho Address:Unknown When:2-4 days Comments:Schedule appointment as soon as possibleMay use ibuprofen and your vicodin With:NOT PHYSICIAN Address:Unknown When:2-4 days [facility] 03-18-2023 Note Discharge Instructions Thank you for allowing [facility] to assist you with your healthcare needs. The following is importantdischarge information regarding your hospital visit. Diagnosis from Today's Visit Hypertension Knee pain-swelling left What to Do Next Instructions from Your Care Team Discharge Home Equipment - Ordered -- Knee Immobilizer, 99 month(s), 01/04/23 11:54:00 EDT Post Acute Orders No qualifying data available. You Need to Schedule the Following Appointments Follow Up with your pcp When Within 2-4 days Why: Schedule appointment as soon as possible Follow up for blood pressure Follow Up with Demetrice galicia When Within 2-4 days Why: Schedule appointment as soon as possible May use ibuprofen and your vicodin Follow Up with NOT PHYSICIAN When Within 2-4 days Allergies Primatene Mist Inhaler codeine erythromycin sulfamethoxazole Medications Please ask your primary doctor or pharmacist before taking any other medication not listed, including over the counter drugs, herbal medications, vitamins and or supplements as they may interact withyour home medications. What How Much When Why Instructions Last Dose Changed naproxen (Anaprox-DS 550 mg oral tablet) 1 tab(s) by mouth Two (2) times a day Hypertension Duration: 10 Days prn with food Printed Prescription Changed naproxen (naproxen 500 mg oral tablet) 1 tab(s) by mouth Two (2) times a day as needed for as needed for pain Neuralgia Unchanged acetaminophen-hydrocodone ([place] 325- 5 mg oral tablet) 1 tab(s) by mouth Every 6 hours as needed for as needed for pain Acute pyelonephritis Duration: 3 Days Unchanged acetaminophen-hydrocodone ([place] 325- 5 mg oral tablet) 1 tab(s) by mouth Every 6 hours as needed for for pain Unchanged acetaminophen-oxyCODONE (Percocet 5 mg-325 mg oral tablet) 1 tab(s) by mouth Every 4 hours as needed for for pain Neuralgia Duration: 3 Days Unchanged albuterol (albuterol 2.5 mg/ 3 mL (0.083%) inhalation solution) 3 Milliliter by inhalation Every 6 hours as needed for for wheezing Unchanged albuterol (ProAir HFA MDI (90 mcg/ inh) inhalation aerosol) 2 puff(s) by inhalation Every 4 hours as needed for for wheezing Unchanged cephalexin (cephalexin 500 mg oral capsule) 1 cap by mouth Four (4) times a day Duration: 1 Days Unchanged cephalexin (cephalexin 500 mg oral capsule) 1 cap by mouth Four (4) times a day Duration: 7 Days Unchanged cyclobenzaprine (Flexeril 10 mg oral tablet) 1 tab(s) by mouth Three (3) times a day as needed for for muscle spasm Unchanged famotidine (famotidine 20 mg oral tablet) 1 tab(s) by mouth Two (2) times a day Duration: 5 Days Unchanged gabapentin (gabapentin 100 mg oral capsule) 2 cap by mouth Two (2) times a day Unchanged glyBURIDE (glyBURIDE 5 mg oral tablet) 1 tab(s) by mouth Twice daily with meals Unchanged insulin glargine (Basaglar 100 unit(s)/ mL 3 mL KwikPen) 18 unit(s) Subcutaneous Daily at bedtime Unchanged metFORMIN (metFORMIN 500 mg oral tablet) 1 tab(s) by mouth Two (2) times a day Unchanged omeprazole (omeprazole 20 mg oral delayed release capsule) 1 cap by mouth Two (2) times daily before meals Please take this list to your next doctor s visit. Bring all medications you take, including over the counter medications, herbals and other supplements with you to your doctor s visit. Patients and families are reminded to discard old lists and to update any records with all medication providers or retail pharmacies. Education Materials Established High Blood Pressure High blood pressure (hypertension) is a chronic disease. Often, healthcare providers don t know what causes it. But it can be caused by certain health conditions and medicines. If you have high blood pressure, you may not have any symptoms. If you do have symptoms, they may include headache, dizziness, changes in your vision, chest pain, and shortness of breath. But even without symptoms, high blood pressure that s not treated raises your risk for heart attack, heart failure, and stroke. High blood pressure is a serious health risk and shouldn t be ignored. Blood pressure measurements are given as 2 numbers. Systolic blood pressure is the upper number. This is the pressure when the heart contracts. Diastolic blood pressure is the lower number. This is the pressure when the heart relaxes between beats. You will see your blood pressure readings written together. For example, a person with a systolic pressure of 118 and a diastolic pressure of 78 will have 118/78 written in the medical record. Blood pressure is categorized as normal, elevated, or stage 1 or stage 2 high blood pressure: Normal blood pressure is systolic of less than 120 and diastolic of less than 80 (120/80) Elevated blood pressure is systolic of 120 to 129 and diastolic less than 80 Stage 1 high blood pressure is systolic is 130 to 139 or diastolic between 80 to 89 Stage 2 high blood pressure is when systolic is 140 or higher or the diastolic is 90 or higher Home care If you have high blood pressure, follow these home care guidelines to help lower your blood pressure. If you are taking medicines for high blood pressure, these methods may reduce or end your need for medicines in the future. Start a weight-loss program if you are overweight. Cut back on how much salt you get in your diet. Here s how to do this: oDon t eat foods that have a lot of salt. These include olives, pickles, smoked meats, and salted potato chips. oDon t add salt to your food at the table. oUse only small amounts of salt when cooking. Start an exercise program. Talk with your healthcare provider about the type of exercise program that would be best for you. It doesn't have to be hard. Even brisk walking for 20 minutes 3 times a week is a good form of exercise. Don t take medicines that stimulate the heart. This includes many alwr-fub-wljdjxu cold and sinus decongestant pills and sprays, as well as diet pills. Check the warnings about high blood pressure onthe label. Before buying any zmnq-ull-yaehufy medicines or supplements, always ask the pharmacist about the product's potential interaction with your high blood pressure and your high blood pressure medicines. Stimulants such as amphetamine or cocaine could be deadly for someone with high blood pressure. Never take these. Limit how much caffeine you get in your diet. Switch to caffeine-free products. Stop smoking. If you are a long-time smoker, this can be hard. Talk to your healthcare provider about medicines and nicotine replacement options to help you. Also, enroll in a stop-smoking program tomake it more likely that you will quit for good. Learn how to handle stress. This is an important part of any program to lower blood pressure. Learnabout relaxation methods like meditation, yoga, or biofeedback. If your provider prescribed medicines, take them exactly as directed. Missing doses may cause your blood pressure get out of control. If you miss a dose or doses, check with your healthcare provider or pharmacist about what to do. Consider buying an automatic blood pressure machine to check your blood pressure at home. Ask your provider for a recommendation. You can get one of these at most pharmacies. The [employer] recommends the following guidelines for home blood pressure monitoring: Don't smoke or drink coffee for 30 minutes before taking your blood pressure. Go to the bathroom before the test. Relax for 5 minutes before taking the measurement. Sit with your back supported (don't sit on a couch or soft chair); keep your feet on the floor uncrossed. Place your arm on a solid flat surface (like a table) with the upper part of the arm at heartlevel. Place the middle of the cuff directly above the bend of the elbow. Check the monitor's instruction manual for an illustration. Take multiple readings. When you measure, take 2 to 3 readings one minute apart and record all of the results. Take your blood pressure at the same time every day, or as your healthcare provider recommends. Record the date, time, and blood pressure reading. Take the record with you to your next medical appointment. If your blood pressure monitor has a built-in memory, simply take the monitor with you to your next appointment. Call your provider if you have several high readings. Don't be frightened by a single high blood pressure reading, but if you get several high readings, check in with your healthcare provider. Note: When blood pressure reaches a systolic (top number) of 180 or higher OR diastolic (bottom number) of 110 or higher, seek emergency medical treatment. Follow-up care You will need to see your healthcare provider regularly. This is to check your blood pressure and to make changes to your medicines. Make a follow-up appointment as directed. Bring the record of yourhome blood pressure readings to the appointment. When to seek medical advice Call your healthcare provider right away if any of these occur: Blood pressure reaches a systolic (upper number) of 180 or higher OR a diastolic (bottom number) of110 or higher Chest pain or shortness of breath Severe headache Throbbing or rushing sound in the ears Nosebleed Sudden severe pain in your belly (abdomen) Extreme drowsiness, confusion, or fainting Dizziness or spinning sensation (vertigo) Weakness of an arm or leg or one side of the face You have problems speaking or seeing [id number] [employer]. [address] [place], [place] [id number]. All rights reserved. This information is not intended as a substitute for professional medical care. Always follow yourhealthcare professional's instructions. Knee Pain with Possible Torn Meniscus The meniscus is a tough cartilage pad that cushions the inside of the knee joint. It helps absorb the shock from movement. It also spreads the weight of your body evenly across the knee joint. This prevents excess wear and tear to the bones of that joint. The most common causes of meniscal tears are injuries, especially related to sports and degenerative disease that happens with aging. A meniscus tear commonly happens during a twisting injury when the knee is bent. This causes pain, swelling, reduced movement of the knee, and trouble walking. There may be popping, clicking, joint locking or inability to completely straighten the knee. Ligaments of the knee may also be injured. A torn meniscus is diagnosed by physical exam and X-rays. In the case of a severe injury, the knee may be too painful to examine fully. A more accurate exam can be done after the initial swelling goes down. An MRI may be done to make a final diagnosis. If your healthcare provider suspects a meniscal injury, you will treat your knee with ice and rest and preventing movement of the knee. A splint or knee brace that keeps your leg straight may be put on to protect the joint. Depending on the severity of the injury, surgery may be needed. A cartilageinjury may take 4 to 12 weeks to heal depending on how bad it is. Home care Stay off the injured leg as much as possible until you can walk on it without pain. If you have a lot of pain when walking, crutches or a walker may be prescribed. (These can be rented or bought at many pharmacies and surgical or orthopedic supply stores). Follow your healthcare provider's advice about when to begin putting weight on that leg. Keep your leg elevated to reduce pain and swelling. When sleeping, place a pillow under the injuredleg. When sitting, support the injured leg so it is above heart level. This is very important during the first 48 hours. Apply an ice pack over the injured area for 15 to 20 minutes every 3 to 6 hours. You should do thisfor the first 24 to 48 hours. You can make an ice pack by filling a plastic bag that seals at the top with ice cubes and then wrapping it with a thin towel. Continue to use ice packs for relief of pain and swelling as needed. As the ice melts, be careful not to get your wrap, splint, or cast wet. After 48 hours, apply heat (warm shower or warm bath) for 15 to 20 minutes several times a day, or alternate ice and heat. You can place the ice pack directly over the splint. If you have to wear a iofo-ddn-rhvd knee brace, you can open it to apply the ice pack, or heat, directly to the knee. Never put ice directly on the skin. Always wrap the ice in a towel or other type of cloth. You may use ijrp-ham-soeswlx pain medicine to control pain, unless another pain medicine was prescribed. If you have chronic liver or kidney disease or ever had a stomach ulcer or gastrointestinal bleeding, talk with your healthcare provider before using these medicines. If you were given a splint, keep it dry at all times. Bathe with your splint out of the water. Protect it with a large plastic bag that is rubber-banded or taped at the top end. If a fiberglass splint gets wet, you can dry it with a chairman president and chief executive officer set on cool. If you have a vhkv-ots-wxaz knee brace, you can remove this to bathe, unless told otherwise. Check with your healthcare provider before returning to sports or full work duties. Follow-up care Follow up with your healthcare provider, or as advised. This is usually within 1 to 2 weeks. Further testing may be required to check the extent of your injury. If X-rays were taken, you will be told of any new findings that may affect your care. Call 911 Call 911 if you have: Shortness of breath Chest pain When to seek medical advice Call your healthcare provider right away if any of these occur: Toes or foot gets swollen, cold, blue, numb, or tingly Pain or swelling spreads over the knee or calf Warmth or redness appears over the knee or calf Fever of 100.4 F (38 C) or higher, or as directed by your healthcare provider Deyanira [phone] [employer]. [address] [place] [address]. All rights reserved. This information is not intended as a substitute for professional medical care. Always follow yourhealthcare professional's instructions. Additional Information VACCINATE! IT SAVES LIVES! Members of the community who have not yet received the COVID-19 vaccine and would like to receive it can visit one of [facility] vaccine clinics. There are many vaccine clinic locations within the [facility]. For locations and available times, please visit www.gettheshot.coronavirus.[place].gov/. It is important to note that some COVID mobile vaccine clinics are held outdoors and may be canceled in rainy or stormy conditions. To learn more about pediatric vaccinations (ages 5-11), we invite you to visit the [facility] webpage. https://www.[facility].org/pages/5284-Iqrav-Txmvolefdle-Zzevbrdhzh-Nahbo-Eij stions.htmlTo learn more about the COVID-19 vaccine, we invite you to visit the CDC website for a list of frequently asked questions. https://www.cdc.gov/coronavirus/2019-ncov/vaccines/faq.html [facility] Patient Portal Access Instructions: Stay connected with your healthcare team and access your personal medical information anytime with the [facility] Patient Portal. If you would like a full copy of your medical records please contact the [facility] Medical Records Department Friday through Friday between 8a.m. and 4:30p.m. Please follow the directions below to access the portal: 1.Access the email account you provided upon registration to the [facility].2.Look for an invitation email from [facility].3.Open the email and access the invitation link: Accept Invitation to [facility].Fill in the required milton to create your account. Sign into www.[email or web address] with your username and password that you created in the above steps to stay up to date. You can then view a summary of results, a summary of your visits, and the ability to download your summaries to your computer or send the information securely to a physician. Remember that your healthcare information is confidential, so carefully consider who you will allow to register on the [facility] Patient Portal for access to your information. You can also access the [facility] Patient Portal on the [employer] gisela. Simply click on Health Records under [employer] and then click on the [employer] logo. HOW TO SAFELY DISPOSE OF PRESCRIPTION MEDICATIONS Please use one of the following methods to safely dispose of your unused medications. 1.Use a drug disposal kit: the drug disposal pouch allows you to safely discard your old and unuseddrugs. Ask your nurse to give you one when you are discharged.2.Visit a local take-back location: Many local pharmacies and police departments have programs that collect old and unwanted prescriptiondrugs. Call your local pharmacy or go to http://[place]/5M2Wt6j to find one close to you.3.Make use of household items: Use cat litter or old coffee grounds to dispose medications if other options arenot available. Mix your drugs with these household products, seal them in an airtight container andthrow it into the garbage. Call [facility]: [phone] to be sure your drugs can be disposed of in this way. Some medicines may require a different approach.4.Never flush your medications down the toilet. IF YOU HAVE BEEN PRESCRIBED AN OPIOIDS FOR PAIN If you have been prescribed an opioid (such as hydrocodone, oxycodone or morphine), it is critical to understand the possible side effects and risks of opioid pain medications. Even when taken as directed, opioids can have several side effects including: Tolerance, meaning you might need to take more of a medication for the same pain relief. Nausea, vomiting and/or constipation. Sleepiness, dizziness, dry mouth, confusion, depression or itching. Physical dependence, meaning you have withdrawal symptoms when a medication is stopped ? this can develop within a few days. KNOW YOUR RESPONSIBILITIES It is important to know exactly how much and how often to take the opioid pain medications you are prescribed. Never take opioids in higher amounts or more often than prescribed. Do not combine opioids with alcohol or other drugs that cause drowsiness, such as benzodiazepines, also known as benzos,including diazepam and alprazolam, muscle relaxants or sleep aids. Never sell or share prescriptionopioids. This is illegal. Store opioids in a secure place and out of reach of others (including children, family, friends and visitors). The last page(s) of this document has been signed and retained as a CHART COPY Signatures Patient Education Materials Hypertension, Established Knee Pain with Possible Torn Meniscus Medication Leaflets My discharge plan and instructions have been reviewed and explained to me and I,NADIA ANGLIN Viktoria understand my current condition and have read and understand these discharge instructions. I have received a written copy of the plan/instructions. If I have questions, I am aware that I should contact my doctor. Patient/Enrollment Services Dean Signature: Date/Time: Relationship to Patient: Witness Name/Signature: Date/Time: [facility]03-18-2023 Note ORIGINAL EXAMINATION: THREE XRAY VIEWS OF THE LEFT KNEE 01/04/2023 11:15 am COMPARISON: None. HISTORY: ORDERING SYSTEM PROVIDED HISTORY: Reason for Exam: Pain FINDINGS: Moderate suprapatellar joint effusion observed. There is moderate tricompartmental osteoarthritis with joint space narrowing and osteophyte formation. No acute fracture line is identified. There is subtle medial subluxation of the femur upon the tibial plateau. IMPRESSION: Moderate tricompartmental osteoarthritis and moderate suprapatellar joint effusion. Findings may relate to internal derangement and or nonvisualized microfracture. Interpreted by: Sav Josue DO Preliminary Report By: Sav Josue DO Electronically signed By Sav Josue DO Dictated Date: 01/04/2023 11:20:52 AM Prelim Date: 01/04/2023 11:21:39 AM Sign Date: 01/04/2023 11:21:39 AM Ordering Provider: STEFAN [facility]03-18-2023 Note ORIGINAL EXAMINATION: THREE XRAY VIEWS OF THE LEFT KNEE 01/04/2023 11:15 am COMPARISON: None. HISTORY: ORDERING SYSTEM PROVIDED HISTORY: Reason for Exam: Pain FINDINGS: Moderate suprapatellar joint effusion observed. There is moderate tricompartmental osteoarthritis with joint space narrowing and osteophyte formation. No acute fracture line is identified. There is subtle medial subluxation of the femur upon the tibial plateau. IMPRESSION: Moderate tricompartmental osteoarthritis and moderate suprapatellar joint effusion. Findings may relate to internal derangement and or nonvisualized microfracture. Interpreted by: Sav Josue DO Preliminary Report By: Sav Josue DO Electronically signed By Sav Josue DO Dictated Date: 01/04/2023 11:20:52 AM Prelim Date: 01/04/2023 11:21:39 AM Sign Date: 01/04/2023 11:21:39 AM Ordering Provider: STEFAN [facility]02-08-2022 Hospital Discharge instructions Patient Education 11/27/2021 11:09:56 Radiculopathy, Cervical Pinched Nerve in the Neck A pinched nerve in the neck (cervical radiculopathy) is caused when the nerve that goes from the spinal cord to the neck or arm is irritated or has pressure on it. This may be caused by a bulging spinal disk. A spinal disk is the cushion between each spinal bone (vertebrae). Or it may be caused by a narrowing of the spinal joint because of osteoarthritis and wear and tear from repeated injuries. A pinched nerve can cause numbness, tingling, deep aching, or electrical shooting pain from the side of the neck all the way down to the fingers on one side. It can also cause weakness of the musclesthat the nerve controls. A pinched nerve may start after a sudden turning or bending force (such as in a car accident) or after a simple awkward movement. In either case, muscle spasm is commonly present and adds to the pain. Home care Follow these guidelines when caring for yourself at home: Rest and relax the muscles. Use a comfortable pillow that supports your head and keeps your spine in a natural (neutral) position. Your head shouldn t be tilted forward or backward. A rolled-up towelmay help for a custom fit. When standing or sitting, keep your neck in line with your body. Keep your head up and shoulders down. Stay away from activities that require you to move your neck a lot. You can use heat and massage to help ease the pain. Take a hot shower or bath, or use a heating pad. You can also use a cold pack for relief. You can make a cold pack by wrapping a plastic bag of crushed or cubed ice in a thin towel. Try both heat and cold, and use the method that feels best. Do this for 20 minutes several times a day. You may use acetaminophen or ibuprofen to control pain, unless another pain medicine was prescribed. If you have chronic liver or kidney disease, talk with your healthcare provider before using thesemedicines. Also talk with your provider if you ve had a stomach ulcer or gastrointestinal bleeding. Reduce stress. Stress can make it longer for your pain to go away. Do any exercises or stretches that were given to you as part of your discharge plan. Wear a soft collar, if prescribed. Physical therapy and massages are known to help. You may need injections near the affected nerve or surgery for a more serious injury. Follow-up care Follow up with your healthcare provider, or as advised, if you don t start to get better after 1 week. If you have muscle weakness you should seek attention immediately. You may need more tests. Tellyour provider about any fever, chills, or weight loss. If X-rays were taken, a radiologist may look at them. You will be told of any new findings that mayaffect your care. When to seek medical advice Call your healthcare provider right away if any of these occur: Pain becomes worse even after taking prescribed pain medicine Weakness in the arm or legs Numbness in the arm gets worse Trouble breathing or swallowing [id number] [employer]. [address] [place] [address], [place] [address]. All rights reserved. This information is not intended as a substitute for professional medical care. Always follow yourhealthcare professional's instructions. Follow Up Care 11/27/2021 08:15:55 With:Your Doctor Address: When:2-[address] [facility] 10-13-2021 NoteHNO ID: [id number] Author: Yoana Camara Service: ? Author Type: Physician Type: Progress Notes Filed: 08/01/2021 2:03 PM Note Text: Initial Office Visit Subjective: This 51 year old female presents to clinic for diabetic foot check. Patient has the following complaints: painful neuropathy. Patient presents to clinic complaining of severe burning of b/l feet. She has neuropathy that she first noticed back in 2009. She has been on neurontin 400 mg daily and this has been increased to 800 mg daily. She does not feel the neurontin is helping. She states the only thing that helps is placing her foot in cold water. Patient has tried diabetic pain cream but nothing helps. Patient did have covid last April and feels that since having covid, her neuropathy is much more severe. In addition, she has psoriasis and she feels covid made her psoriasis worse. Patient admits to being diabetic for 4 years now. Patient +B/T/N in feet at this time. Patient -pain in legs when walking. No other pedal complaints at this time. No change in medications or medical history since last visit. PAIN EVALUATION 08/01/2021 1335 Pain Level: 10 Pain Location: Other: See Comment Description: Burning;Numbness Duration Amount of Time: ? several Duration Units: Years Frequency: Continuous Intervention/Comfort measure: Reposition;Relaxation;Medication;Cold gabapentin No results found for: HBA1C PCP: Clifford Sarmiento, PAST MEDICAL HISTORY Diagnosis Date - Asthma - Current smoker - Diabetes mellitus type 2, insulin dependent (HCC) - Elevated BP - Obesity - Psoriasis - Spinal stenosis Current Outpatient Medications Medication Sig - FREESTYLE LITE STRIPS test strip - cyclobenzaprine (FLEXERIL) 10 mg tablet Take 10 mg by mouth. - gabapentin (NEURONTIN) 100 mg capsule Take 200 mg by mouth twice daily. - HYDROcodone-acetaminophen (NORCO) 5-325 mg per tablet Take 1 tablet by mouth. - FREESTYLE LANCETS 28 gauge - metoprolol tartrate, short acting, (LOPRESSOR) 25 mg tablet - BD INSULIN PEN NEEDLE UF 31 gauge x 16 - sertraline (ZOLOFT) 100 mg tablet Take 100 mg by mouth. - metFORMIN (GLUCOPHAGE) 500 mg tablet Take 1,000 mg by mouth twice daily with meals. - lisinopril 10 mg tablet Take 1 tablet by mouth once daily. - albuterol HFA (PROAIR HFA) 90 mcg/actuation INHALATION inhaler Inhale 2 Puffs as instructed every 4 hours as needed. - Inhalational Spacing Device (AEROCHAMBER) [facility] Device. Use with Inhaler - BASAGLAR KWIKPEN U-100 INSULIN 100 unit/mL (3 mL) - Aspirin 81 mg Tab 2 tabs once a day. Take with food. (Patient not taking: Reported on 01/27/2020 ) - omeprazole (PRILOSEC) 20 mg capsule Take 1 capsule by mouth daily before breakfast. 1/2 hr before meal. - fluticasone (FLONASE) 50 mcg/actuation nasal spray Use 2 Sprays in each nostril once daily. (Patient not taking: Reported on 01/27/2020 ) - promethazine (PHENERGAN) 25 mg tablet Take 1 tablet by mouth every 4 hours as needed. FOR NAUSEA - LORazepam (ATIVAN) 1 mg tablet Take 1 tablet by mouth every 6 hours as needed for Anxiety (one hour before mri scan). (Patient not taking: Reported on 01/27/2020) - aripiprazole (ABILIFY) 10 mg ORAL tablet Take 1 tablet by mouth once daily. - triamcinolone acetonide 0.5 % TOPICAL cream Apply to affected area twice daily. Apply sparingly twice daily to control psoriasis (Patient not taking: Reported on 01/27/2020 ) No current facility-administered medications for this visit. ALLERGIES Allergen Reactions - Codeine Intolerance - Iv Contrast [Iodine] Vomiting - Primatene Mist [Epi* Vomiting PAST SURGICAL HISTORY Procedure Laterality Date - DELIVERY ONLY 1990, 1995 , low transverse - TUBAL LIGATION, FAMILY HISTORY Problem Relation Age of Onset - Diabetes Mother - Hypertension Mother - Stroke Mother TIA's - Heart Father @ 62 d/t IA - Heart Maternal Grandfather - Diabetes Maternal Grandfather - Diabetes Sister @ 50 years, renal failure Social History Tobacco Use - Smoking status: Current Every Day Smoker Packs/day: 1.00 Years: 20.00 Pack years: 20.00 Types: Cigarettes - Smokeless tobacco: Never Used - Tobacco comment: 10/21 PPD Substance Use Topics - Alcohol use: No - Drug use: No REVIEW OF SYSTEMS GENERAL: Negative for Malaise, significant weight loss, fever RESPIRATORY: Negative for cough, wheezing and shortness of breath CARDIOVASCULAR: Negative for chest pain, leg swelling and palpitations GI: Negative for abdominal discomfort, blood in stools or black stools and change in bowel habits : Negative for dysuria, frequency and incontinence MUSCULOSKELETAL: Negative for joint pain or swelling, back pain, and muscle pain. SKIN: Negative for lesions, rash, and itching. HEMATOLOGY/LYMPHOLOGY Negative for prolonged bleeding, bruising easily, and swollen nodes. ENDOCRIN (more content not included)...[facility]10-13-2021 Note HNO ID: [id number] Author: Carley Orta RN Service: ? Author Type: ? Type: Progress Notes Filed: 08/01/2021 2:03 PM Note Text: AMB ROOMING INTAKE FLOWSHEET DATA Risk Screening Do you have concerns about personal safety or safety in the home?: No Pain Pain Level: 10 Pain Location: Other: See Comment Description: Burning, Numbness Duration Amount of Time: (several) Duration Units: Years Frequency: Continuous Intervention/Comfort measure: Reposition, Relaxation, Medication, Cold (gabapentin) Patient presents with: Left Foot - New Patient, Numbness Right Foot - New Patient, Numbness Patient c/o neuropathy in both feet that has gotten progressively worse over the years. She has been on gabapentin but it doesn't help. States cold is about the only thing that helps.[facility]10-13-2021 NoteHNO ID: [id number] Author: RT Joao(R) Service: ? Author Type: Technologist Type: Progress Notes Filed: 08/01/2021 12:36 PM Note Text: Radiology Service Progress Note PATIENT NAME: Nadia Anglin DATE OF SERVICE: August 01, 2021 TIME: 12:24 PM PATIENT IDENTITY VERIFICATION COMPLETED USING TWO (2) IDENTIFIERS: Name and Date of confirmed by patient verbally. FALL SCREENING: Has the patient had 2 falls in the last year or 1 fall with injury or currently using an Ambulatory Assistive Device (Walker, Cane, Wheelchair, Crutches, etc.)? Yes, Patient High Risk for Falls What interventions were put in place to prevent falls during this visit? Instructed Patient to Call for Help if Needed, Offered Assistance with Transfers/Clothing, Instructed Patient to Remain Seated (Not on Exam Table) Until Exam, Increased Observations by Caregivers and Patient Refused Interventions/Assistance PATIENT GENDER DATA: Female. status: : No status: NO. PATIENT RELEVANT IMPLANT DATA REVIEWED: Not Applicable RADIOLOGY DEPARTMENT: General X-ray: Exam(s) Completed: Lower Extremity X-Ray(s): Feet, Bilateral and Wt. Bearing PERIPHERAL IV DATA: Not applicable SIGNED BY: Yamel Serra, RT(R) August 01, 2021 12:24 [facility] No data available for this section [facility] Evaluation + Plan note Future Appointments Appointment Date:06/30/2023 11:00:00 AM Scheduled Provider: Location:[facility] Appointment Type:[facility] - Comprehensive Meds Review [facility] Evaluation + Plan note Future Appointments Appointment Date:08/25/2023 01:00:00 PM Scheduled Provider:EMILY GATES Location:[facility] Appointment Type:[facility] Follow-Up [facility] Evaluation + Plan note Future Appointments Appointment Date:08/27/2023 01:00:00 PM Scheduled Provider:EMILY GATES Location:[facility] Appointment Type:[facility] Evaluation + Plan note Future Appointments Appointment Date:11/26/2023 01:00:00 PM Scheduled Provider:EMILY GATES Location:[facility] Appointment Type:[facility] Evaluation note* Diagnosis Pre-operative clearance- Primary Preoperative examination, unspecified documented in this encounter [facility] note* Diagnosis Onset Date Resolution Status Diabetes chronic Hypertension chronic Osteoarthritis chronic Preoperative cardiovascular examination noneactive BREONNA (acute kidney injury) ac herson Bacteremia due to Escherichia coli acute Cirrhosis of liver acute Encephalopathy acute Knee pain acute Pyelonephritis acute Sepsis acute Septic shock acute Diabetes chronic [facility] Work Phone: Hospital Discharge instructions No data available for this section [facility] Progress note No data available for this section [facility] Reason for referral (narrative)* Outpatient Procedure (Routine) - Pending Review Specialty Diagnoses / Procedures Referred By Contac t Referred To Contact [facility] Diagnoses Pre-operative clearance Procedures SPIROMETRY WITH DILATOR IF OBSTRUCTED BRNCDILAT RSPSE SPMTRY PRE&POST-BRNCDILAT ADMMarley Lucas MD [address] [place] [address] [facility] [place] [address] [place] [address] Referral ID Status Reason Start Date Expiration Date Visits Requested Visits Authorized [id number] Pending Review Auto-Generat ed Referral 09/20/2022 10/19/2023 1 1 [facility] for referral (narrative)No reason for referral information [facility]WC[facility] Work Phone: Summary Purpose Family History No Family History Records Found Relationship Condition Age at Onset Recorded Date/T sheng Not Specified Arthritis Unknown Malignant neoplasm Unknown Hypertension Unknown Cerebrovascular accident (CVA) Unknown father Coronary artery disease Unknown Myocardial infarction 60 Advance Directives No Advanced Directives Records Found Advance Directive Response Recorded Date/ Time Living Will No August 12 10:29pm Power of Curriculum Development Manager No August 12, 2023 10:29pm Chief Complaint and Reason for Visit Chief Complaint SURG CLEARANCE (SELF ) ACUTE RECURRENT LEFT PYELONEPHRITIS ACUTE RECURRENT LEFT PYELONEPHRITIS ACUTE RECURRENT LEFT PYELONEPHRITIS ACUTE RECURRENT LEFT PYELONEPHRITIS ACUTE RECURRENT LEFT PYELONEPHRITIS ACUTE RECURRENT LEFT PYELONEPHRITIS ACUTE RECURRENT LEFT PYELONEPHRITIS ACUTE RECURRENT LEFT PYELONEPHRITIS ACUTE RECURRENT LEFT PYELONEPHRITIS Reason for Visit Diabetes Hypertension Osteoarthritis Preoperative cardiovascular examination BREONNA (acute kidney injury) Bacteremia due to Escherichia coli Cirrhosis of liver Encephalopathy Knee pain Pyelonephritis Sepsis Septic shock Diabetes Chief Complaint Admit Date HTN/Family HX of Stroke and CAD February 022024 10:31am HAS TWO LAB ORDERING BEE TODAY February 082024 11:27am Reason for Visit Admit Date Diabetes February 02, 2025 10: 31am Dyslipidemia February 02, 2025 10: 31am Hypertension February 02, 2025 10: 31am Morbid obesity with BMI of 40.0-44.9, ad ult February 02, 2025 10:31am Renal artery stenosis February 02, 2025 1 0:31am Additional Source Comments INFORMATION SOURCE (unrecogn ized section and content) DATE CREATED AUTHOR 10/13/2019 [facility] DATE CREATED AUTHOR AUTHOR'S ORGANIZ ATION 08/03/2021 [facility] DATE CREATED AUTHOR AUTHOR'S ORGANIZ ATION 05/08/2024 [facility] ([place]) DATE CREATED AUTHOR AUTHOR'S ORGANIZ ATION 01/14/2025 [facility] DATE CREATED AUTHOR AUTHOR'S ORGANIZ ATION 01/28/2025 [facility] DATE CREATED AUTHOR AUTHOR'S ORGANIZ ATION 02/14/2025 [facility] Source Comments (unrecognize d section and content) In the event this informatio n is protected by the Federal Confidentiality of Alcohol and Drug Abuse Patient Records regulations: The Federal rules restrict any use of the information to criminally investigate or prosecute any alcohol or drug abuse patient.[facility] Care Teams (unrecognized sec tion and content) 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 Rylan Jefferson MD Family Provider Active No Primary Care Physician Primary Care Provider Active Team Status: Inactive Member Role Status Dates No Primary Care Physician Primary Care Provider, Refer ring Provider Active Dr. Vanesa Brown MD Attending Provider Active Team Status: Active Member Role Status Dates No Primary Care Physician Primary Care Provider Active Dr. Kamla Jimenez , DO Admit Provider, Other Provider Ac tive Dr. Cholo Piper MD Other Provider Active Dr. Amador Lares , Other Provider Active Dr. Chong Cuello MD Other Provider Active Dr. Tony Talley MD Other Provider Active Dr. Tee Elena MD Other Provider Active Ana Garcia SILK HANGER, SILK HANGER-C Other Provider Active Dr. Clifford Hernandez MD Attending Provider Active Team Status: Active Member Role Status Dates No Primary Care Physician Primary Care Provider Active Dr. Kamla Jimenez , DO Admit Provider, Other Provider Ac tive Dr. Cholo Piper MD Other Provider Active Dr. Amador Lares , DO Other Provider Active Dr. Chong Cuello MD Other Provider Active Dr. Tony Talley MD Other Provider Active Dr. Tee Elena MD Other Provider Active Ana Garcia SILK HANGER, SILK HANGER-C Other Provider Active Dr. Nato Snyder DO Attending Provider, Other Provid er Active Team Status: Active Member Role Status Dates No Primary Care Physician Primary Care Provider Active Dr. Kmala Jimenez , DO Admit Provider, Other Provider Ac tive Dr. Nato Snyder DO Other Provider Active Dr. Cholo Piper MD Attending Provider Active Team Status: Active Member Role Status Dates No Primary Care Physician Primary Care Provider Active Dr. Kamla Jimenez , DO Admit Provider, Other Provider Ac tive Dr. Nato Snyder , DO Attending Provider, Other Provid er Active Team Status: Active Member Role Status Dates No Primary Care Physician Primary Care Provider Active Dr. Kamla Jimenez , DO Admit Provider, Other Provider Ac tive Dr. Nato Snyder , DO Attending Provider, Other Provid er Active Dr. Ike Sams MD Other Provider Active Team Status: Inactive Member Role Status Dates No Primary Care Physician Primary Care Provider Active Dr. Kamla Jimenez , DO Admit Provider, Other Provider Ac tive Dr. Nato Snyder , Attending Provider Active Dr. Ike Sams MD Other Provider Active Team Status: Active Member Role Status Dates Dr. Clifford Sarmiento DO Primary Care Provider Active Team Status: Inactive Member Role Status Dates No Primary Care Physician Primary Care Provider Active Start: February 02, 2025 End: February 02, 2025 No Primary Care Physician Referring Provider Active Start: February 02, 2025 End: February 02, 2025 Dr. Vanesa Brown MD Attending Provider Active Start: February 02, 2025 End: February 02, 2025 Team Status: Inactive Member Role Status Dates Dr. Onel Harrell MD Attending Provider Act devon Start: February 08, 2025 End: February 08, 2025 Dr. Clifford Sarmiento DO Primary Care Provider Active Start: February 08, 2025 End: February 08, 2025 Dr. Vanesa Brown MD Referring Provider Active Start: February 08, 2025 End: February 08, 2025 Goals (unrecognized section and content) Goals may be documented in a n alternate section FOR RECORDS PERTAINING TO PATIENTS WHO ARE OR HAVE BEEN ENROLLED IN A CHEMICAL DEPENDENCY/SUBSTANCEABUSE PROGRAM, SOME INFORMATION MAY BE OMITTED. This clinical summary was aggregated from multiple sources. Caution should be exercised in using it in the provision of clinical care. This summary normalizes information from multiple sources, and as a consequence, information in this document may materially change the coding, format and clinical context of patient data. In addition, data may be omitted in some cases. CLINICAL DECISIONS SHOULD BE BASED ON THE PRIMARY CLINICAL RECORDS. [employer] [facility]. provides no warranty or guarantee of the accuracy or completeness of information in this document.
[2025-04-02 14:19] VITALS: BMI 40.2
--- NOTE | 2025-04-02 14:19 | CT_ITS ---
PROCEDURE: ABDOMEN/PELVIS WITHOUT CONT 04/02/2025 REASON FOR EXAM: RIGHT FLANK PAIN TECHNIQUE: ABDOMEN/PELVIS WITHOUT CONT Noncontrast technique limits evaluation of the abdominal and pelvic viscera. Coronal and Sagittal reconstruction series were provided. One or more dose reduction techniques were used (e.g., Automated exposure control, adjustment of the mA and/or kV according to patient size, use of iterative reconstruction technique). ORAL CONTRAST TYPE: None. COMPARISON: Abdominal ultrasound 08/13/2023. FINDINGS: Lung bases: Unremarkable. Liver: Normal in size with findings compatible with cirrhosis. Diffuse hepatic steatosis. No biliary ductal dilation. Gallbladder: Circumferential calcification of the gallbladder wall, compatible with porcelain gallbladder. Spleen: Normal in size. Pancreas: Diffusely atrophic. Adrenals: No adrenal mass. Kidneys: Mild left renal cortical scarring. No hydronephrosis or nephrolithiasis. Bladder: Distended and unremarkable. Reproductive Organs: Normal uterine size and contour. Ovaries are unremarkable. Bowel: The bowel loops are nondilated. No ascites or pneumoperitoneum. Normal appendix. Lymph nodes: Prominent retroperitoneal and periportal nodes, likely reactive. Vasculature: Mild diffuse atherosclerotic calcifications are noted. Probable prior right renal artery stenting. Bones/soft tissues: Mild thoracolumbar spondylosis. Tiny fat containing umbilical hernia. Scattered subcutaneous low-density lesions within the right breast, right lateral lower chest and left anterior proximal thigh, likely sebaceous cysts. CT/Abdomen/Pelvis without Cont IMPRESSION: 1. No acute abdominopelvic finding. 2. Findings of cirrhosis with diffuse hepatic steatosis. Reading Location: [id number]
[2025-04-02] MEDS: 0.9% Normal Saline (1000mL) 1,000 ML 1000 ML IV (14:29)
[2025-04-02 14:34] VITALS: BP 103/62; PULSE 62; RESP 16; O2SAT 95
[2025-04-02 14:42] LABS: Absolute Neutrophil Count 8.4 X10^3/uL (2.0-7.7); Basophil# 0.07 X10^3/uL; Basophil% 0.5 % (0-1); Eosinophil# 0.32 X10^3/uL; Eosinophils% 2.4 % (0-5); Hematocrit 34.8 % (37-47); Hemoglobin 11.6 g/dL (12.0-15.0); Lymphocyte % 24.3 % (19-41); Mean Corp Hgb Conc 33.3 g/dL (32-36); Mean Corpuscular Hgb 30.2 pg (27.0-32.0); Mean Corpuscular Volume 90.6 fL (81-99); Mean Platelet Vol. 10.5 fl (6.2-12.0); Monocyte# 1.12 X10^3/uL; Monocyte% 8.5 % (0-10); NRBC Flagged by Analyzer 0 % (0-5); Neutrophil # 8.41 X10^3/uL (2.7-7.7); Neutrophil % 63.9 % (47-70); Platelet Count 154 K/mm3 (150-450); RBC Distribution Width SD 42.6 fl (35.1-43.9); Red Blood Count 3.84 M/mm3 (4.2-5.4); White Blood Count 13.2 K/mm3 (4.4-11.0)
--- NOTE | 2025-04-02 14:59 | EDS_ITS ---
HPI History of Present Illness Chief Complaint: Complaint Narrative Narrative: 54-year-old female past medical history of hypertension, chronic back pain, chronic kidney disease presents with right sided back pain, and inability to urinate since 5 AM. This is approximately 10 hours ago. She states that she is on multiple medications including Lasix for her high blood pressure that usually make her urinate. She states this morning when she awoke at that hour she had a small amount of urination, but later throughout the day she has not urinated since then. She states she is on these medications that usually make her urinate and she has not had decreased p.o. intake of fluids, she has been drinking water. She has right-sided flank pain as well. She is concerned about her kidney function and the fact that she has not urinated in so long. She denies being on any medications that would directly cause urinary retention. Hence, she is essentially complaining of decreased urine output. [facility] Medical History History of stent insertion of renal artery Cirrhosis of liver Chronic headaches Atypical chest pain Chronic back pain Left knee pain Psoriatic arthritis Obesity Right knee DJD Arthritis Psoriasis Spinal stenosis Neuropathy Depression Diabetes Hypertension Asthma Home Medications ?Medication ?Instructions ?Recorded ?Last Taken ?Type albuterol sulfate 2.5 mg/3 mL 2.5 mg inhalation Q4H NE N 07/12/22 Unknown History (0.083 %) solution for nebulization albuterol sulfate 90 mcg/actuation 2 puff inhalation Q 6H PRN asthma 07/12/22 Unknown History aerosol inhaler cyclobenzaprine 10 mg tablet 10 mg PO TID PRN 07/12/22 Unknown History gabapentin 600 mg tablet 600 mg PO BID back pain 06/2108/12/23 21:00 History hydrocodone 7.5 mg-acetaminophen 1 tab PO Q6H PRN back pain 07/12/22 08/12/23 21:00 History 325 mg tablet omeprazole 20 mg tablet,delayed 20 mg PO BID PRN 05/28 Unknown History release lisinopril 10 mg tablet 10 mg PO DAILY blood pressur e 08/12/23 Unknown History loratadine 10 mg tablet 10 mg PO DAILY PRN allergies 08/12/23 Unknown History amlodipine 10 mg tablet 10 mg PO QDAY 02/02/25 Unkno wn History atorvastatin 40 mg tablet 40 mg PO QHS 02/02/25 Unknow n History clopidogrel 75 mg tablet 75 mg PO QDAY 02/02/25 Unkno wn History furosemide 40 mg tablet 40 mg PO QDAY #90 tabs 02/02 Unknown Rx insulin glargine 100 unit/mL (3 15 - 18 unit subcut QP M diabetes 02/02/25 Unknown History mL) subcutaneous pen (Lantus Solostar U-100 Insulin) lisinopril 40 mg tablet 40 mg PO QDAY 02/02/25 Unkno wn History metoprolol tartrate 50 mg tablet 50 mg PO BID 02/02/25 Unknown History potassium chloride 20 mEq 20 meq PO QDAY #90 tabs 01/18 04/13 Unknown Rx tablet,extended release Allergy/AdvReac Type Severity Reaction Status Date / Time coconut Allergy Severe Anaphylaxis Verified 04/02/25 11:59 erythromycin base Allergy Intermediate Other Verified 04/02/25 11:59 sulfamethoxazole Allergy Intermediate Other Verified 04/02/25 11:59 codeine Allergy Unknown unknown Verified 04/02/25 11:59 epinephrine (From Primatene Allergy Unknown unknown Verified 04/02/25 11:59 Mist) Family History Father CAD (coronary artery disease) Myocardial infarction, Onset Age: 62 Other Arthritis CVA (cerebral vascular accident) Cancer Hypertension Surgical History Hx of tubal ligation History of section Social History household members: spouse Smoking Status: Current every day smoker tobacco type: e-cigarettes alcohol intake: current alcohol intake frequency: holidays/special occasions on ly substance use type: does not use caffeine: Yes Type: coffee Number of servings: 1 ROS ROS ED ROS Narrative Review of systems positive for right flank/right back pain, decreased urine output. No fevers or chills, no nausea or vomiting, no exacerbating or alleviating factors. EXAM Physical Exam Narrative Exam Narrative: Afebrile. Vital signs noted. Nontoxic-appearing. Cardiovascular examination reveals a regular rate and rhythm. Lungs are clear to auscultation bilaterally. Abdomen is soft, nontender, without guarding or rebound. Positive bowel sounds. Questionable right CVA tenderness to percussion. Neurological examination is nonfocal, nonlateralizing. Const Vital Signs: 04/02/25 11:58 04/02/25 12:00 04/02/25 14:34 Temperature 97.3 F L 97.3 F L Temperature Source Temporal Temporal Pulse Rate 70 70 62 Respiratory Rate 14 14 16 Blood Pressure 145/59 H 145/59 H 103/62 Blood Pressure Mean 87 87 75 Pulse Ox 98 97 95 Oxygen Delivery Method Room Air Room Air Room Air 04/02/25 16:00 Temperature Temperature Source Pulse Rate 65 Respiratory Rate 16 Blood Pressure Blood Pressure Mean Pulse Ox 97 Oxygen Delivery Method Room Air MDM MDM MDM Narrative Medical decision making narrative: Differential diagnosis includes but not limited to pyelonephritis versus ureterolithiasis versus acute kidney failure versus musculoskeletal low back pain. Comprehensive workup was pursued. CBC, BMP, and urinalysis will be obtained as well as CT imaging to look for ureteral obstruction, especially on the right. I reviewed her prior hospital visits, and she has history of ESBL UTI. I reviewed her laboratory work and she has slightly elevated white count at 13.2 which is nonspecific, hemoglobin 11.6, hematocrit 34.8, platelet count 154. BUN is 36 with creatinine 1.48, when compared to prior labs, she has had elevated creatinine in the past. Glucose elevated at 197 with anion gap normal at 12. Urinalysis is positive for leukocyte esterase but negative for nitrites. While WBCs are 10-25, there are 5-10 squamous epithelial cells and this may be more of a contaminant. I reviewed the radiology report of the CT of the flank and while there is no obstructing kidney stone, there is no stranding or hydronephrosis noted either. At this point in time, while she has a leukocytosis, she is not meeting other SIRS criteria. I discussed with her the use of oral antibiotics, but she states many of them make her nauseated and vomit. Through shared decision making, she would like to wait for urine culture results. Should there be no oral medication to which a bacteria would be sensitive, she will be contacted to return to the emergency department for IV antibiotics. At this point in time, I had discussed with her observation as well, but she prefers to go home instead of hospitalization. I feel this is reasonable as once again she is not tachycardic and not febrile here. Return instructions to the emergency department were reviewed. Disposition is discharged home in stable condition. History & Record Review Discussion w/independent historian: Patient Additional record(s) reviewed:: Prior inpatient record Lab Data Attestation: I reviewed the patient's lab results. Labs: Laboratory Results - last 24 hr 04/02/25 04/02/25 14:30 15:11 WBC 13.2 H RBC 3.84 L Hgb 11.6 L Hct 34.8 L MCV 90.6 MCH 30.2 MCHC 33.3 RDW Std Deviation 42.6 RDW Coeff of Frannie 13.0 Plt Count 154 MPV 10.5 Immature Gran % (Auto) 0.400 Neut % (Auto) 63.9 Lymph % (Auto) 24.3 [place] % (Auto) 8.5 Eos % (Auto) 2.4 Baso % (Auto) 0.5 Absolute Neuts (auto) 8.4 H Absolute Lymphs (auto) 3.20 Nucleated RBC % 0 Sodium 134 Potassium 4.7 Chloride 105 Carbon Dioxide 16.7 L Anion Gap 12 BUN 36 H Creatinine 1.48 H Estim Creat Clear Calc 57.85 Est GFR (MDRD) Non-Af 41 L BUN/Creatinine Ratio 24.3 H Glucose 197 H Calcium 8.3 Urine Color Yellow Urine Clarity Cloudy Urine pH 6.0 Ur Specific [place] 1.020 Urine Protein 30 H Urine Glucose (UA) Normal Urine Ketones Negative Urine Occult Blood 10 H Urine Nitrite Negative Urine Bilirubin Negative Urine Urobilinogen Normal Ur Leukocyte Esterase 500 H Urine RBC 0-5 SEEN Urine WBC 10-25 SEEN Ur Squamous Epith Cells 5-10 SEEN Urine Bacteria 4+ Urine Mucus 0 SEEN Radiography Diagnostic Testing: Clinical Impression(s) from Imaging Studies Abdomen/Pelvis CT 04/02/25 14:19 IMPRESSION: 1. No acute abdominopelvic finding. 2. Findings of cirrhosis with diffuse hepatic steatosis. Reading Location: [id number] Discharge Plan Triage Chief Complaint: Complaint ED Provider: Sebastián King Dx/Rx/DC Orders Clinical Impression: Decreased urine output, History of infection due to ESBL Escherichia coli, Back pain Instructions: ED Flank Pain, Uncertain Cause, ED Pain, Acute, Uncertain Cause Prescriptions: No Action albuterol sulfate 2.5 mg /3 mL (0.083 %) solution for nebulization 2.5 mg inhalation Q4H PRN albuterol sulfate 90 mcg/actuation HFA aerosol inhaler 2 puff inhalation Q6H PRN (Reason: asthma) cyclobenzaprine 10 mg tablet 10 mg PO TID PRN gabapentin 600 mg tablet 600 mg PO BID hydrocodone-acetaminophen 7.5-325 mg tablet 1 tab PO Q6H PRN (Reason: back pain) omeprazole 20 mg tablet,delayed release (DR/EC) 20 mg PO BID PRN insulin glargine [Lantus Solostar U-100 Insulin] 100 unit/mL (3 mL) insulin pen 15 - 18 unit subcut QPM Patient Comments: inject 20 units subcutaneously every evening lisinopril 40 mg tablet 40 mg PO QDAY metoprolol tartrate 50 mg tablet 50 mg PO BID atorvastatin 40 mg tablet 40 mg PO QHS clopidogrel 75 mg tablet 75 mg PO QDAY amlodipine 10 mg tablet 10 mg PO QDAY furosemide 40 mg tablet 40 mg PO QDAY Qty: 90 3RF potassium chloride 20 mEq tablet extended release 20 meq PO QDAY Qty: 90 3RF lisinopril 10 mg tablet 10 mg PO DAILY Patient Comments: take 1 tablet by mouth once daily loratadine 10 mg tablet 10 mg PO DAILY PRN (Reason: allergies) Patient Comments: take 1 tablet by mouth once daily if needed Primary Care Provider: Clifford Sarmiento Referrals: Clifford Sarmiento DO [Primary Care Provider] - 3-5 Days if not improving Activity Restrictions/Additional Instructions: Your urine cultures are currently pending. You should have results in the next 48 hours or slightly longer. Return to the emergency department with fever, increased pain, elevated heart rate, new or worsening symptoms. Print Language: Portuguese Disposition Disposition: Home, Self Care
[2025-04-02] MEDS: HYDROcodone Bitartrate/Apap 5/325 Tablet PO (15:08)
[2025-04-02 15:15] LABS: Mucous, Urine 0 SEEN /hpf (<or=2+)
[2025-04-02 15:20] LABS: Anion Gap 12 (5-15); BUN 36 mg/dL (4-19); BUN/Creat Ratio 24.3 RATIO (10-20); Calcium,Total 8.3 mg/dL (7.6-11.0); Carbon Dioxide 16.7 mmol/L (21.0-32.0); Chloride 105 mmol/L (98-108); Creatinine, Serum 1.48 mg/dL (0.70-1.20); EST Glomerular Filtration Rate 41 (>60); Estimated Creatinine Clearance 57.85 ml/min (50-250); Glucose 197 mg/dL (70-99); Potassium 4.7 mmol/L (3.3-5.1); Sodium Level 134 mmol/L (133-145)
[2025-04-02 15:52] LABS: Color, Urine Yellow (Yellow); Glucose, Dipstick Normal (Normal); Ketone-Dipstick Negative (Negative); Leukocyte Esterase-Dipstick 500 /ul (Negative); Nitrite-Dipstick Negative (Negative); Occult Blood-Urine 10 /ul (Negative); Protein-Dipstick 30 mg/dl (Negative); Urine Bilirubin Dipstick Negative (Negative); Urine Clarity Cloudy (Clear); Urine Urobilinogen Normal (Normal)
[2025-04-02 15:59] LABS: Bacteria 4+ /hpf (None Seen); Red Blood Cells-Urine 0-5 SEEN /hpf (0-5); Squamous Epithelial Cells - UA 5-10 SEEN /hpf (5-10); White Blood Cells 10-25 SEEN /hpf (0-5)
[2025-04-02 16:00] VITALS: PULSE 65; RESP 16; O2SAT 97
[2025-04-02 16:19] VITALS: BP 115/74; PULSE 62; RESP 15; TEMP 36.6; O2SAT 99
== END 2025-04-02 16:20 | disposition home or self-care (01) ==
PROVIDERS: Emergency Provider Emergency Medicine; PCP Family Medicine; Visit Provider Emergency Medicine
DX: R39.9 Unspecified symptoms and signs involving the genitourinary system (principal); E11.40 Type 2 diabetes mellitus with diabetic neuropathy, unspecified; E11.22 Type 2 diabetes mellitus with diabetic chronic kidney disease; M54.9 Dorsalgia, unspecified; N18.9 Chronic kidney disease, unspecified; I12.9 Hypertensive chronic kidney disease with stage 1 through stage 4 chronic kidney disease, or unspecified chronic kidney disease; G89.29 Other chronic pain; F17.290 Nicotine dependence, other tobacco product, uncomplicated
CPT/HCPCS: 74176; 80048; 81001; 85025; 87077; 87086; 87088; 87186; 96360; 99283; A4216

== ENCOUNTER 2025-04-05 15:09 | Observation (INO) | payer MEDICAID, SELFPAY ==
[2025-04-05] VITALS (8 sets, daily range): BP systolic 132–152; BP diastolic 59–120; PULSE 64–75; RESP 16–20; TEMP 35.8–37.1; O2SAT 95–98; BMI 42.1; BMI 41.8
[2025-04-05 16:31] LABS: Absolute Lymphocyte Count 2.06 X10^3/uL (0.83-4.51); Absolute Neutrophil Count 5.6 X10^3/uL (2.0-7.7); Basophil# 0.06 X10^3/uL; Basophil% 0.7 % (0-1); Eosinophil# 0.18 X10^3/uL; Eosinophils% 2.1 % (0-5); Hematocrit 33.6 % (37-47); Hemoglobin 10.9 g/dL (12.0-15.0); Lymphocyte # 2.06 X10^3/ul (0.83-4.51); Lymphocyte % 24.5 % (19-41); Mean Corp Hgb Conc 32.4 g/dL (32-36); Mean Corpuscular Volume 92.6 fL (81-99); Mean Platelet Vol. 10.2 fl (6.2-12.0); Monocyte# 0.51 X10^3/uL; Monocyte% 6.1 % (0-10); NRBC Flagged by Analyzer 0 % (0-5); Neutrophil # 5.57 X10^3/uL (2.7-7.7); Neutrophil % 66.4 % (47-70); Platelet Count 115 K/mm3 (150-450); RBC Distribution Width CV 12.9 % (11.6-14.6); RBC Distribution Width SD 43.8 fl (35.1-43.9); Red Blood Count 3.63 M/mm3 (4.2-5.4); White Blood Count 8.4 K/mm3 (4.4-11.0)
--- NOTE | 2025-04-05 16:44 | EX.ED.DYSGE1 ---
HPI History of Present Illness Chief Complaint: Complaint Narrative Narrative: Patient is a 54-year-old female past medical history of liver cirrhosis, renal artery stent, spinal stenosis, neuropathy, depression, diabetes, hypertension who presented to the emergency department with a chief complaint of urinary tract infection resistant to antibiotics. She states that she was here a few days ago and was called today and was advised to come to the emergency department to be admitted for IV antibiotics. [facility] Medical History History of stent insertion of renal artery Cirrhosis of liver Chronic headaches Atypical chest pain Chronic back pain Left knee pain Psoriatic arthritis Obesity Right knee DJD Arthritis Psoriasis Spinal stenosis Neuropathy Depression Diabetes Hypertension Asthma Home Medications ?Medication ?Instructions ?Recorded ?Last Taken ?Type albuterol sulfate 2.5 mg/3 mL 2.5 mg inhalation Q4H PRN 07/12/22 Unknown History (0.083 %) solution for nebulization bronchospasm albuterol sulfate 90 mcg/actuation 2 puff inhalation Q6H PRN asthma 07/12/22 Unknown History aerosol inhaler cyclobenzaprine 10 mg tablet 10 mg PO TID PRN 07/12/22 Unknown History gabapentin 600 mg tablet 600 mg PO BID back pain 07/12/22 08/12/23 21:00 History hydrocodone 7.5 mg-acetaminophen 1 tab PO Q6H PRN back pain 07/12/22 08/12/23 21:00 History 325 mg tablet omeprazole 20 mg tablet,delayed 20 mg PO BID PRN 05/28/23 Unknown History release lisinopril 10 mg tablet 10 mg PO DAILY blood pressure 08/12/23 Unknown History loratadine 10 mg tablet 10 mg PO DAILY PRN allergies 08/12/23 Unknown History amlodipine 10 mg tablet 10 mg PO QDAY 02/02/25 Unknown History atorvastatin 40 mg tablet 40 mg PO QHS 02/02/25 Unknown History clopidogrel 75 mg tablet 75 mg PO QDAY 02/02/25 Unknown History furosemide 40 mg tablet 40 mg PO QDAY #90 tabs 02/02/25 Unknown Rx insulin glargine 100 unit/mL (3 15 - 18 unit subcut QPM diabetes 02/02/25 Unknown History mL) subcutaneous pen (Lantus Solostar U-100 Insulin) lisinopril 40 mg tablet 40 mg PO QDAY 02/02/25 Unknown History metoprolol tartrate 50 mg tablet 50 mg PO BID 02/02/25 Unknown History potassium chloride 20 mEq 20 meq PO QDAY #90 tabs 02/02/25 Unknown Rx tablet,extended release Allergy/AdvReac Type Severity Reaction Status Date / Time coconut Allergy Severe Anaphylaxis Verified 04/05/25 15:12 erythromycin base Allergy Intermediate Other Verified 04/05/25 15:12 sulfamethoxazole Allergy Intermediate Other Verified 04/05/25 15:12 codeine Allergy Unknown unknown Verified 04/05/25 15:12 epinephrine (From Primatene Allergy Unknown unknown Verified 04/05/25 15:12 Mist) Family History Father CAD (coronary artery disease) Myocardial infarction, Onset Age: 62 Other Arthritis CVA (cerebral vascular accident) Cancer Hypertension Surgical History Hx of tubal ligation History of section Social History household members: spouse Smoking Status: Current every day smoker tobacco type: e-cigarettes alcohol intake: current alcohol intake frequency: holidays/special occasions only substance use type: does not use caffeine: Yes Type: coffee Number of servings: 1 ROS ROS ED ROS Narrative Constitutional: Denies any fevers, chills, headaches Abdomen: Denies abdominal pain nausea vomit diarrhea : Complains of painful urination denies any blood in her urine Neurological: Denies any numbness, wheeze, tingling Musculoskeletal: Complains of back pain but states that this has been the same since she was seen here and evaluated Skin: Denies any rashes or lesions EXAM Physical Exam Narrative Exam Narrative: General: Patient lying in bed rest comfortably did not appear to be in acute distress Head: Atraumatic, normocephalic Eyes: PERRL bilaterally, EOMI bilaterally, no conjunctival injection noted Neck: Soft, supple, trachea midline Cardiovascular: Regular rate and rhythm no murmurs gallops rubs noted Respiratory: Clear to auscultation bilaterally Abdomen: No tenderness to palpation Extremities: +5/5 strength noted in the bilateral upper and lower extremities Neurological: Patient follow commands knew that she was at [facility] year is 2024 Skin: Warm, dry, tact no rashes lesions noted Const Vital Signs: 04/05/25 15:09 04/05/25 16:10 04/05/25 16:12 Temperature 96.4 F L 98.7 F Temperature Source Temporal Oral Pulse Rate 68 65 Respiratory Rate 20 H 18 Blood Pressure 144/77 H 152/120 H Blood Pressure Mean 99 130 Pulse Ox 96 96 Oxygen Delivery Method Room Air Room Air Room Air 04/05/25 17:12 Temperature 98.7 F Temperature Source Oral Pulse Rate 64 Respiratory Rate 18 Blood Pressure 132/64 H Blood Pressure Mean 86 Pulse Ox 97 Oxygen Delivery Method Room Air MDM MDM MDM Narrative Medical decision making narrative: Patient is a 54-year-old female who presented to the emergency department with a chief complaint of needing IV antibiotics for urinary tract infection and states that she was called in earlier today. On the differential diagnosis includes but limited to UTI, pyelonephritis, multi drug-resistant urinary tract infection. Patient was given 30 cc/kg bolus of IV fluids which was ordered at 1610 based on ideal body weight for BMI of greater than 30. I did review the micro from the urinalysis which showed greater than 100,000 ESBL E. coli. Patient was ordered meropenem at 1608 based on cultures and sensitivities. Patient's CBC reviewed and showed no evidence leukocytosis white blood count normal at 8.4, hemoglobin 10.9, platelet count was noted to be 115. Patient's sodium normal 139, potassium was 5.1, CO2 low at 19.8, anion gap normal at 10. Patient's creatinine was 1.23 which was improved from when she was here on 04/02/2025. Patient lactic acid pending. Patient AST and ALT are 24 and 13 respectively. Patient's microscopic urinalysis is pending. I did add on a renal ultrasound. Once again the patient will require admission for IV antibiotics based on her previous culture and sensitivities will discuss case with hospitalist for admission. Discussed case with hospitalist Dr. Torres who accept patient for admission. Patient notified is agreeable this plan. Reperfusion assessment performed at 5:50 PM and patient remains normotensive to hypertensive therefore no indication for vasopressors at this point time. Lab Data Labs: Laboratory Results - last 24 hr 04/05/25 04/05/25 16:20 17:00 WBC 8.4 RBC 3.63 L Hgb 10.9 L Hct 33.6 L MCV 92.6 MCH 30.0 MCHC 32.4 RDW Std Deviation 43.8 RDW Coeff of Frannie 12.9 Plt Count 115 L MPV 10.2 Immature Gran % (Auto) 0.200 Neut % (Auto) 66.4 Lymph % (Auto) 24.5 [place] % (Auto) 6.1 Eos % (Auto) 2.1 Baso % (Auto) 0.7 Absolute Neuts (auto) 5.6 Absolute Lymphs (auto) 2.06 Nucleated RBC % 0 PT Cancelled INR Cancelled APTT Cancelled Sodium 139 Potassium 5.1 Chloride 109 H Carbon Dioxide 19.8 L Anion Gap 10 BUN 20 H Creatinine 1.23 H Est GFR (MDRD) Non-Af 52 L BUN/Creatinine Ratio 16.5 Glucose 117 H Lactic Acid < 1.0 Calcium 8.8 Total Bilirubin 0.47 AST 24 ALT 13 Alkaline Phosphatase 77 Total Protein 7.4 Albumin 3.5 Globulin 3.9 Albumin/Globulin Ratio 0.9 Urine Color Yellow Urine Clarity Sl. Cloudy Urine pH 6.0 Ur Specific [place] 1.015 Urine Protein 30 H Urine Glucose (UA) Normal Urine Ketones Negative Urine Occult Blood 10 H Urine Nitrite Negative Urine Bilirubin Negative Urine Urobilinogen Normal Ur Leukocyte Esterase Negative Discharge Plan Triage Chief Complaint: Complaint ED Provider: Fred Ragsdale Dx/Rx/DC Orders Clinical Impression: Urinary tract infection, Extended spectrum beta lactamase (ESBL) resistance Prescriptions: No Action albuterol sulfate 2.5 mg /3 mL (0.083 %) solution for nebulization 2.5 mg inhalation Q4H PRN (Reason: bronchospasm) albuterol sulfate 90 mcg/actuation HFA aerosol inhaler 2 puff inhalation Q6H PRN (Reason: asthma) cyclobenzaprine 10 mg tablet 10 mg PO TID PRN gabapentin 600 mg tablet 600 mg PO BID hydrocodone-acetaminophen 7.5-325 mg tablet 1 tab PO Q6H PRN (Reason: back pain) omeprazole 20 mg tablet,delayed release (DR/EC) 20 mg PO BID PRN insulin glargine [Lantus Solostar U-100 Insulin] 100 unit/mL (3 mL) insulin pen 15 - 18 unit subcut QPM Patient Comments: inject 20 units subcutaneously every evening lisinopril 40 mg tablet 40 mg PO QDAY metoprolol tartrate 50 mg tablet 50 mg PO BID atorvastatin 40 mg tablet 40 mg PO QHS clopidogrel 75 mg tablet 75 mg PO QDAY amlodipine 10 mg tablet 10 mg PO QDAY furosemide 40 mg tablet 40 mg PO QDAY Qty: 90 3RF potassium chloride 20 mEq tablet extended release 20 meq PO QDAY Qty: 90 3RF lisinopril 10 mg tablet 10 mg PO DAILY Patient Comments: take 1 tablet by mouth once daily loratadine 10 mg tablet 10 mg PO DAILY PRN (Reason: allergies) Patient Comments: take 1 tablet by mouth once daily if needed Primary Care Provider: Clifford Sarmiento Referrals: Clifford Sarmiento DO [Primary Care Provider] - Print Language: Martiniquais Disposition Disposition: Acute Care Hospital [facility]
--- NOTE | 2025-04-05 16:53 | US_ITS ---
PROCEDURE: KIDNEY AND BLADDER 04/05/2025 REASON FOR EXAM: BACK PAIN, UTI TECHNIQUE: KIDNEY AND BLADDER COMPARISON: None FINDINGS: Right kidney measures 12.5 cm and left kidney measures 10.5 cm. Bilateral kidneys are normal in echotexture. Small right renal pelvis. No hydronephrosis. Urinary bladder is unremarkable. US/Kidney and Bladder IMPRESSION: No hydronephrosis. Reading Location: [id number]
[2025-04-05 17:09] LABS: Bacteria 0 SEEN /hpf (None Seen)
[2025-04-05 17:11] LABS: Color, Urine Yellow (Yellow); Glucose, Dipstick Normal (Normal); Ketone-Dipstick Negative (Negative); Leukocyte Esterase-Dipstick Negative /ul (Negative); Nitrite-Dipstick Negative (Negative); Occult Blood-Urine 10 /ul (Negative); Protein-Dipstick 30 mg/dl (Negative); Specific Gravity, Urine 1.015 (1.002-1.030); Urine Bilirubin Dipstick Negative (Negative); Urine Clarity Sl. Cloudy (Clear); Urine Urobilinogen Normal (Normal)
[2025-04-05 17:11] LABS: ALB/GLOB Ratio 0.9 RATIO (0.9-2.4); AST(SGOT) 24 U/L (<=31); Alanine Aminotransfer ALT/SGPT 13 U/L (<=34); Albumin, Serum 3.5 g/dL (3.5-5.0); Alkaline Phosphatase 77 U/L (35-104); Anion Gap 10 (5-15); BUN 20 mg/dL (4-19); BUN/Creat Ratio 16.5 RATIO (10-20); Calcium,Total 8.8 mg/dL (7.6-11.0); Carbon Dioxide 19.8 mmol/L (21.0-32.0); Chloride 109 mmol/L (98-108); Creatinine, Serum 1.23 mg/dL (0.70-1.20); EST Glomerular Filtration Rate 52 (>60); Globulin 3.9 g/dL (2.2-4.2); Glucose 117 mg/dL (70-99); Potassium 5.1 mmol/L (3.3-5.1); Protein, Total 7.4 g/dL (5.9-8.4); Sodium Level 139 mmol/L (133-145); Total Bilirubin 0.47 mg/dL (0.00-1.30)
[2025-04-05] MEDS: 0.9% Normal Saline (1000mL) 1,000 ML 999 ML IV ×3 (17:13→20:13)
[2025-04-05] MEDS: Meropenem 2 GM in 0.9% Normal Saline (100mL Bag) 100 ML IV ×2 (17:13→23:38)
[2025-04-05 17:19] LABS: Lactic Acid < 1.0 mmol/L (0.0-2.0)
--- NOTE | 2025-04-05 17:46 | PCM.HP.STD ---
HPI - General General Date of Admission: 04/05/25 Date of Service: 04/05/25 Chief Complaint: ESBL E. coli UTI HPI Narrative YOON ANGLIN, is a 54 F who presented to [facility] ED on 04/05/2025 for ESBL E. coli UTI. Patient was seen in the ED on 04/02 for worsening back pain and UTI symptoms. UA was concerning for UTI and patient had known history of ESBL UTI in the past. However, she had no other systemic signs of infection at that time and CT abdomen pelvis showed no acute intra-abdominal findings. Patient opted to discharge home on no antibiotic treatment and await urine culture results. Urine culture grew > 100K ESBL E. coli so she was asked to come back to the ED for further evaluation. She was again hemodynamically stable on room air in the ED and labs were fairly benign. Hospitalist was then contacted for admission. I saw the patient at bedside in the ED. She was sitting up comfortably in bed and in no acute distress. She reported mild ongoing low back pain and mild burning with urination. There was concern for urinary retention on 04/02 during that ED visit but she has had good urine output since then and in the ED today. Will be admitted for further management. [facility] Medical History History of stent insertion of renal artery Cirrhosis of liver Chronic headaches Atypical chest pain Chronic back pain Left knee pain Psoriatic arthritis Obesity Right knee DJD Arthritis Psoriasis Spinal stenosis Neuropathy Depression Diabetes Hypertension Asthma Home Medications ?Medication ?Instructions ?Recorded ?Last Taken ?Type albuterol sulfate 2.5 mg/3 mL 2.5 mg inhalation Q4H PRN 07/12/22 Unknown History (0.083 %) solution for nebulization bronchospasm albuterol sulfate 90 mcg/actuation 2 puff inhalation Q6H PRN asthma 07/12/22 04/05/25 History aerosol inhaler cyclobenzaprine 10 mg tablet 10 mg PO TID PRN muscle spasm 07/12/22 Unknown History gabapentin 600 mg tablet 600 mg PO BID back pain 07/12/22 04/05/25 History hydrocodone 7.5 mg-acetaminophen 1 tab PO Q6H PRN back pain 07/12/22 04/05/25 History 325 mg tablet omeprazole 20 mg tablet,delayed 20 mg PO BID PRN acid reflux 05/28/23 Unknown History release loratadine 10 mg tablet 10 mg PO DAILY PRN allergies 08/12/23 Unknown History amlodipine 10 mg tablet 10 mg PO QDAY 02/02/25 04/05/25 History atorvastatin 40 mg tablet 40 mg PO QHS 02/02/25 04/04/25 History clopidogrel 75 mg tablet 75 mg PO QDAY 02/02/25 04/05/25 History furosemide 40 mg tablet 40 mg PO QDAY #90 tabs 02/02/25 04/05/25 Rx insulin glargine 100 unit/mL (3 18 unit subcut QPM diabetes 02/02/25 04/04/25 History mL) subcutaneous pen (Lantus Solostar U-100 Insulin) lisinopril 40 mg tablet 40 mg PO QDAY 02/02/25 04/05/25 History potassium chloride 20 mEq 20 meq PO QDAY #90 tabs 02/02/25 04/05/25 Rx tablet,extended release metoprolol tartrate 25 mg tablet 50 mg PO BID 04/05/25 04/05/25 History Allergy/AdvReac Type Severity Reaction Status Date / Time coconut Allergy Severe Anaphylaxis Verified 04/05/25 15:12 erythromycin base Allergy Intermediate Other Verified 04/05/25 15:12 sulfamethoxazole Allergy Intermediate Other Verified 04/05/25 15:12 codeine Allergy Unknown unknown Verified 04/05/25 15:12 epinephrine (From Primatene Allergy Unknown unknown Verified 04/05/25 15:12 Mist) Family History Father CAD (coronary artery disease) Myocardial infarction, Onset Age: 62 Other Arthritis CVA (cerebral vascular accident) Cancer Hypertension Surgical History Hx of tubal ligation History of section Social History household members: spouse Smoking Status: Current every day smoker tobacco type: e-cigarettes alcohol intake: current alcohol intake frequency: holidays/special occasions only substance use type: does not use caffeine: Yes Type: coffee Number of servings: 1 ROS Constitutional Constitutional: Denies chills, fatigue, fever(s) or weakness Eyes Eyes: Denies change in vision Cardiovascular Cardiovascular: Denies chest pain Respiratory/Chest Respiratory/Chest: Denies shortness of breath at rest Gastrointestinal Gastrointestinal: Denies abdominal pain Genitourinary Genitourinary: Reports burning urination and dysuria Musculoskeletal Musculoskeletal: Reports back pain; Denies arthralgias or myalgias Vital Signs Vital Signs Vital Signs: 04/05/25 15:09 04/05/25 16:10 04/05/25 16:12 Temperature 96.4 F L 98.7 F Temperature Source Temporal Oral Pulse Rate 68 65 Respiratory Rate 20 H 18 Blood Pressure 144/77 H 152/120 H Blood Pressure Mean 99 130 Pulse Ox 96 96 Oxygen Delivery Method Room Air Room Air Room Air 04/05/25 17:12 Temperature 98.7 F Temperature Source Oral Pulse Rate 64 Respiratory Rate 18 Blood Pressure 132/64 H Blood Pressure Mean 86 Pulse Ox 97 Oxygen Delivery Method Room Air Weight Weight: 125.645 kg Body Mass Index (BMI) 42.1 Physical Exam Const alert, oriented x3 and no apparent distress Constitutional Narrative: Middle-aged female, class III obesity, sitting up comfortably in bed, conversing normally, in no acute distress. General Appearance: cooperative and comfortable HEENT normocephalic, head/scalp atraumatic, hearing grossly normal bilaterally, nasal mucous membranes and turbinates normal and moist oral mucous membranes Eyes PERRL, EOMs intact bilaterally and conjunctivae normal Neck full ROM Chest inspection of chest normal Resp normal respiratory effort, normal air movement, no use of accessory muscles and clear to auscultation bilaterally Cardio regular rate, regular rhythm, no murmurs and peripheral pulses 2+ throughout GI normal to inspection, nondistended, normoactive bowel sounds, soft to palpation, non-tender and non-distended no CVA tenderness Bladder / Kidney Exam: bladder normal to palpation Back/Spine normal ROM Extremity normal to inspection, full ROM and no pedal edema Skin no rashes or lesions noted Psych mental status grossly normal Results Lab / Micro Data 04/05/25 16:20 04/05/25 16:20 Labs: Laboratory Results - last 24 hr 04/05/25 16:20: WBC 8.4, RBC 3.63 L, Hgb 10.9 L, Hct 33.6 L, MCV 92.6, MCH 30.0, MCHC 32.4, RDW Std Deviation 43.8, RDW Coeff of Frannie 12.9, Plt Count 115 L, MPV 10.2, Immature Gran % (Auto) 0.200, Neut % (Auto) 66.4, Lymph % (Auto) 24.5, [place] % (Auto) 6.1, Eos % (Auto) 2.1, Baso % (Auto) 0.7, Absolute Neuts (auto) 5.6, Absolute Lymphs (auto) 2.06, Nucleated RBC % 0, PT Cancelled, INR Cancelled, APTT Cancelled, Sodium 139, Potassium 5.1, Chloride 109 H, Carbon Dioxide 19.8 L, Anion Gap 10, BUN 20 H, Creatinine 1.23 H, Est GFR (MDRD) Non-Af 52 L, BUN/Creatinine Ratio 16.5, Glucose 117 H, Lactic Acid < 1.0, Calcium 8.8, Total Bilirubin 0.47, AST 24, ALT 13, Alkaline Phosphatase 77, Total Protein 7.4, Albumin 3.5, Globulin 3.9, Albumin/Globulin Ratio 0.9 04/05/25 17:00: Urine Color Yellow, Urine Clarity Sl. Cloudy, Urine pH 6.0, Ur Specific [place] 1.015, Urine Protein 30 H, Urine Glucose (UA) Normal, Urine Ketones Negative, Urine Occult Blood 10 H, Urine Nitrite Negative, Urine Bilirubin Negative, Urine Urobilinogen Normal, Ur Leukocyte Esterase Negative Assessment & Plan Assessment/Plan (1) UTI due to extended-spectrum beta lactamase (ESBL) producing Escherichia coli: PLAN: Plan Patient is a 54-year-old female who presented to [facility] ED on 04/05/2025 with concern for ESBL E. coli UTI. 1. Concern for ESBL E. coli UTI ? Admit under inpatient status to [facility]. Infectious disease consulted. Recent UA on 04/02 showed 500 leukocyte esterase, negative nitrites but 4+ bacteria. Urine culture grew greater than 100,000 ESBL E. coli. Has not been treated with any antibiotics to this point. For unclear reason, UA on 04/05 showed negative leukocyte esterase and 0 bacteria. Patient with no systemic signs of infection. CT abdomen pelvis and renal ultrasound were unremarkable for hydronephrosis so no concern for complicated UTI or acute pyelonephritis. Has known history of prior ESBL E. coli UTI. Will treat with IV meropenem for now, appreciate further ID recommendations. 2. Mild creatinine elevation with mild hyperkalemia ? Creatinine 1.23 on admit, baseline appears to be around 1.0. Potassium 5.1. Bicarb 19. Suspect secondary to mild dehydration. Given small IV fluid bolus on admission, follow-up a.m. BMP and monitor urine output. Holding home Lasix, lisinopril and potassium supplement for now. Chronic medical conditions: ? Class III obesity: BMI 41 on admit. Complicates hospital course, care and prognosis. ? Hypertension, hyperlipidemia, renal artery stenosis s/p stenting: Follows with outpatient cardiology. History of renal artery stenting at [facility] in the past. Continue home amlodipine, Lopressor, Plavix and atorvastatin. Holding home Lasix, lisinopril and potassium supplement for now as above. ? Type 2 diabetes mellitus: Glucose 117 on admit. Will treat with reduced doses of Lantus 15 units at night and sliding scale insulin with meals while inpatient, adjust as needed. ? GERD: Continue home PPI. ? Chronic back pain: Continue home gabapentin, hydrocodone?acetaminophen as needed and Flexeril as needed. ? Asthma: Stable on room air, not in acute exacerbation. Continue home inhalers. ? Mild chronic normocytic anemia: Hemoglobin stable at baseline 10-11. DVT prophylaxis: Lovenox twice daily CODE STATUS: Full code, verified Expected disposition: Home, TBD Total clinical time spent by myself addressing the patient's medical issues, reviewing all the data, and collaborating with patient's care team: 75 minutes. Charges/Coding Visit Charges Inpatient E&M: 69842 Init Hosp L3
[2025-04-05 17:54] LABS: International Normalized Ratio 1.3
[2025-04-05 17:55] LABS: Partial Thromboplast Time 31.3 Seconds (24.1-36.2)
[2025-04-05 18:37] LABS: Squamous Epithelial Cells - UA 10-25 SEEN /hpf (5-10); Yeast-Urine 2+ /hpf (None Seen)
[2025-04-05 18:38] LABS: Red Blood Cells-Urine 0-5 SEEN /hpf (0-5); White Blood Cells 0-5 SEEN /hpf (0-5)
[2025-04-05 18:39] LABS: Mucous, Urine 2+ /hpf (<or=2+)
[2025-04-05] MEDS: Atorvastatin Calcium 40 MG Tablet PO (22:41)
[2025-04-05] MEDS: Pantoprazole Sodium 20 MG Tablet PO (22:41)
[2025-04-05] MEDS: Metoprolol Tartrate 50 MG Tablet PO (22:41)
[2025-04-05] MEDS: Gabapentin 600 MG Tablet PO (22:41)
[2025-04-05] MEDS: Insulin Glargine-YFGN 100 UNIT/ML Pen 15 UNIT SC (22:47)
[2025-04-05] MEDS: Insulin Lispro 100 UNIT/ML INSULN.PEN SC (22:48)
[2025-04-05 23:03] LABS: Bedside Glucose 276 mg/dL (74-106)
[2025-04-05] MEDS: Lactated Ringers 1,000 ML 250 ML IV (23:38)
[2025-04-06 02:40] VITALS: BP 144/70; PULSE 61; RESP 16; TEMP 36.6; O2SAT 96
[2025-04-06] MEDS: HYDROCODONE/APAP 7.5-325/15ML 15 ML UDC PO (02:54)
[2025-04-06 05:01] LABS: Hematocrit 34.3 % (37-47); Hemoglobin 11.4 g/dL (12.0-15.0); Mean Corp Hgb Conc 33.2 g/dL (32-36); Mean Corpuscular Hgb 30.3 pg (27.0-32.0); Mean Corpuscular Volume 91.2 fL (81-99); Mean Platelet Vol. 10.6 fl (6.2-12.0); Platelet Count 114 K/mm3 (150-450); RBC Distribution Width CV 12.9 % (11.6-14.6); RBC Distribution Width SD 42.8 fl (35.1-43.9); Red Blood Count 3.76 M/mm3 (4.2-5.4); White Blood Count 6.6 K/mm3 (4.4-11.0)
[2025-04-06] MEDS: Meropenem 2 GM in 0.9% Normal Saline (100mL Bag) 100 ML IV (05:53)
[2025-04-06 05:54] LABS: Anion Gap 10 (5-15); BUN 17 mg/dL (4-19); BUN/Creat Ratio 17.9 RATIO (10-20); Calcium,Total 8.5 mg/dL (7.6-11.0); Carbon Dioxide 18.4 mmol/L (21.0-32.0); Chloride 109 mmol/L (98-108); Creatinine, Serum 0.97 mg/dL (0.70-1.20); EST Glomerular Filtration Rate 69 (>60); Estimated Creatinine Clearance 90.21 ml/min (50-250); Glucose 108 mg/dL (70-99); Potassium 4.5 mmol/L (3.3-5.1); Sodium Level 137 mmol/L (133-145)
[2025-04-06 06:13] LABS: Bedside Glucose 116 mg/dL (74-106)
[2025-04-06 07:15] VITALS: O2SAT 95
[2025-04-06 08:45] VITALS: BP 158/86; PULSE 59; RESP 18; TEMP 36.4; O2SAT 100
[2025-04-06 08:56] VITALS: PULSE 59
[2025-04-06] MEDS: amLODIPine 10 MG Tablet PO (08:56)
[2025-04-06] MEDS: Clopidogrel Bisulfate 75 MG Tablet PO (08:56)
[2025-04-06] MEDS: Metoprolol Tartrate 50 MG Tablet PO (08:56)
[2025-04-06] MEDS: Pantoprazole Sodium 20 MG Tablet PO (08:58)
[2025-04-06] MEDS: Gabapentin 600 MG Tablet PO (09:02)
--- NOTE | 2025-04-06 09:49 | DCINST_ITS ---
Discharge Instructions Diet Discharge Diet: Low fat / Low cholesterol and Carb Control Diet DC O2, CPAP, BIPAP needs Home O2 Discharge instructions: No Dressing / Incision Discharge Activity: Return to Normal Activity Dressing / Incision Call your doctor if you observe: Fever of 101 or Higher, Shortness of breath, Dizziness, Fainting spells, Swelling in the ankles, Chest pain and Increased palpitations (irregular heartbeat) Follow Up Care Test Results: Test results from this visit will be discussed in further detail at your follow- up appointment, if applicable. Discharge Plan Admission Admit Date/Time: 04/05/25 17:46 Attending Provider: Carlo Barrios Primary Care Provider: Clifford Sarmiento Consulting Providers: Jay Jay Torres Discharge Orders/Prescriptions Prescriptions: New fosfomycin tromethamine 3 gram packet 1 packet PO QODAY Qty: 3 0RF Continued albuterol sulfate 2.5 mg /3 mL (0.083 %) solution for nebulization 2.5 mg inhalation Q4H PRN (Reason: bronchospasm) albuterol sulfate 90 mcg/actuation HFA aerosol inhaler 2 puff inhalation Q6H PRN (Reason: asthma) cyclobenzaprine 10 mg tablet 10 mg PO TID PRN (Reason: muscle spasm) gabapentin 600 mg tablet 600 mg PO BID hydrocodone-acetaminophen 7.5-325 mg tablet 1 tab PO Q6H PRN (Reason: back pain) omeprazole 20 mg tablet,delayed release (DR/EC) 20 mg PO BID PRN (Reason: acid reflux) insulin glargine [Lantus Solostar U-100 Insulin] 100 unit/mL (3 mL) insulin pen 18 unit subcut QPM lisinopril 40 mg tablet 40 mg PO QDAY atorvastatin 40 mg tablet 40 mg PO QHS clopidogrel 75 mg tablet 75 mg PO QDAY amlodipine 10 mg tablet 10 mg PO QDAY furosemide 40 mg tablet 40 mg PO QDAY Qty: 90 3RF potassium chloride 20 mEq tablet extended release 20 meq PO QDAY Qty: 90 3RF loratadine 10 mg tablet 10 mg PO DAILY PRN (Reason: allergies) metoprolol tartrate 25 mg tablet 50 mg PO BID Referrals / Follow Up: Clifford Sarmiento DO [Primary Care Provider] - Within 1 Week Disposition Disposition (needs filled in before D/C Order can be placed): Home, Self Care
--- NOTE | 2025-04-06 10:43 | CASEMGMT ---
ROC NOBLE Assessment Face to Face with patient for initial transition planning/care coordination assessment. ROC NOBLE introduced self and role at [facility], pt voices understanding. Pt is A&Ox4 and is resting comfortably in bed and is calm. Care providers, pharmacy, and demographics verified. Admitting dx: ESBL E COLI UTI LACE Strata: 3 PCP: Clifford Sarmiento Specialists: [facility] only. Pt denies seeing an [employer] and declines list/ resources Preferred Pharmacy: [facility] Insurance: Mo-DV/I-Pulse Prescription Benefit: Yes LNOK: Drew (SO), Heather (Daughter) Living Arrangements: Pt lives with her SO in a mobile home with 5 steps to enter ADLs/IADLs: Indep Transportation: Pt's SO DME: [employer] with sufficient supplies, Cane, FWW, WC HHC/SNF: Denies history or needs Pt?s goal: Home Plan: Home, no additional needs identified. Pt states that she feels safe returning home with her SO today and denies further questions or concerns now. Jaida Serra RN, CM
--- NOTE | 2025-04-06 11:34 | PHA.DC.MC.R ---
Pharmacy [facility] Counseling Pharmacy Service has performed discharge medication reconciliation and counseling for this patient. 1. FOSFOMYCIN 3MG PO EVERY OTHER DAY FOR 3 DOSES The patient's discharge medication list was reviewed for discrepancies and discrepancies were resolved. The patient was counseled on the following discharge medications and changes in medications for homegoing were reviewed. The Reason for Use, instructions for use, and potential side effects were reviewed for all new medications. The patient's questions regarding all of their medications were answered. The patient was able to verbally demonstrate an understanding of their discharge medications. Medications at Discharge Home Medications albuterol sulfate 2.5 mg/3 mL (0.083 %) solution for nebulization 2.5 mg inhalation Q4H PRN bronchospasm 07/12/22 albuterol sulfate 90 mcg/actuation aerosol inhaler 2 puff inhalation Q6H PRN asthma 07/12/22 cyclobenzaprine 10 mg tablet 10 mg PO TID PRN muscle spasm 07/12/22 gabapentin 600 mg tablet 600 mg PO BID back pain 07/12/22 hydrocodone 7.5 mg-acetaminophen 325 mg tablet 1 tab PO Q6H PRN back pain 07/12/22 omeprazole 20 mg tablet,delayed release 20 mg PO BID PRN acid reflux 05/28/23 loratadine 10 mg tablet 10 mg PO DAILY PRN allergies 08/12/23 amlodipine 10 mg tablet 10 mg PO QDAY 02/02/25 atorvastatin 40 mg tablet 40 mg PO QHS 02/02/25 clopidogrel 75 mg tablet 75 mg PO QDAY 02/02/25 furosemide 40 mg tablet 40 mg PO QDAY #90 tabs 02/02/25 insulin glargine 100 unit/mL (3 mL) subcutaneous pen (Lantus Solostar U-100 Insulin) 18 unit subcut QPM diabetes 02/02/25 lisinopril 40 mg tablet 40 mg PO QDAY 02/02/25 potassium chloride 20 mEq tablet,extended release 20 meq PO QDAY #90 tabs 02/02/25 metoprolol tartrate 25 mg tablet 50 mg PO BID 04/05/25 fosfomycin tromethamine 3 gram oral packet 1 packet PO QODAY 3 doses #3 ea 04/06/25
--- NOTE | 2025-04-06 16:37 | PCM.DC.SUM ---
Providers Date of Admission: 04/05/25 Primary Care Physician: Dr. Clifford Sarmiento DO Reason For Visit: ESBL E COLI UTI Diagnosis Discharge Diagnosis (1) UTI due to extended-spectrum beta lactamase (ESBL) producing Escherichia coli: Status: Acute Code(s): N39.0 - Urinary tract infection, site not specified; B96.29 - Other Escherichia coli [E. coli] as the cause of diseases classified elsewhere; Z16.12 - Extended spectrum beta lactamase (ESBL) resistance Medications at Discharge Home Medications albuterol sulfate 2.5 mg/3 mL (0.083 %) solution for nebulization 2.5 mg inhalation Q4H PRN bronchospasm 07/12/22 albuterol sulfate 90 mcg/actuation aerosol inhaler 2 puff inhalation Q6H PRN asthma 07/12/22 cyclobenzaprine 10 mg tablet 10 mg PO TID PRN muscle spasm 07/12/22 gabapentin 600 mg tablet 600 mg PO BID back pain 07/12/22 hydrocodone 7.5 mg-acetaminophen 325 mg tablet 1 tab PO Q6H PRN back pain 07/12/22 omeprazole 20 mg tablet,delayed release 20 mg PO BID PRN acid reflux 05/28/23 loratadine 10 mg tablet 10 mg PO DAILY PRN allergies 08/12/23 amlodipine 10 mg tablet 10 mg PO QDAY 02/02/25 atorvastatin 40 mg tablet 40 mg PO QHS 02/02/25 clopidogrel 75 mg tablet 75 mg PO QDAY 02/02/25 furosemide 40 mg tablet 40 mg PO QDAY #90 tabs 02/02/25 insulin glargine 100 unit/mL (3 mL) subcutaneous pen (Lantus Solostar U-100 Insulin) 18 unit subcut QPM diabetes 02/02/25 lisinopril 40 mg tablet 40 mg PO QDAY 02/02/25 potassium chloride 20 mEq tablet,extended release 20 meq PO QDAY #90 tabs 02/02/25 metoprolol tartrate 25 mg tablet 50 mg PO BID 04/05/25 fosfomycin tromethamine 3 gram oral packet 1 packet PO QODAY 3 doses #3 ea 04/06/25 Hospital Course Operations None Procedures None Summary of Care Provided Minutes Spent on Discharge: 31 Hospital Course: Per HPI: YOON PARKSRY, is a 54 F who presented to [facility] ED on 04/05/2025 for ESBL E. coli UTI. Patient was seen in the ED on 04/02 for worsening back pain and UTI symptoms. UA was concerning for UTI and patient had known history of ESBL UTI in the past. However, she had no other systemic signs of infection at that time and CT abdomen pelvis showed no acute intra-abdominal findings. Patient opted to discharge home on no antibiotic treatment and await urine culture results. Urine culture grew > 100K ESBL E. coli so she was asked to come back to the ED for further evaluation. She was again hemodynamically stable on room air in the ED and labs were fairly benign. Hospitalist was then contacted for admission. I saw the patient at bedside in the ED. She was sitting up comfortably in bed and in no acute distress. She reported mild ongoing low back pain and mild burning with urination. There was concern for urinary retention on 04/02 during that ED visit but she has had good urine output since then and in the ED today. Will be admitted for further management. Hospital Course: 1. ESBL E. coli UTI?54-year-old female presented to the hospital with history of UTIs on 04/02/2025. She was sent home with antibiotics but found that the culture was ESBL positive so she was called back to the emergency room and admitted. She is afebrile without a leukocytosis and she has chronic flank pain. She was started on meropenem however she was discharged today on fosfomycin as this has an almost 100% success rate treating ESBL E. coli's on the outpatient side therefore not warranting a complete inpatient admission. She is afebrile and I discussed with her the possibility for discharge today she expressed understanding of the risks and benefits of going home and would like to go home today. I do recommend that she follow-up with her PCP in 3 to 5 days for outpatient monitoring and evaluation for successful treatment. 2. Essential hypertension, hyperlipidemia with renal artery stenosis status post stenting, type 2 diabetes, GERD, chronic back pain, asthma, chronic normocytic anemia are all chronic medical conditions which complicate her care. Her home medications were continued where appropriate. Physical Exam Narrative general: Alert, Oriented x3, Cooperative, No apparent distress, morbidly obese HEENT: Atraumatic, PERRLA, EOMI, Normocephalic Oral: Moist Mucosa Neck: Supple, No JVD Lungs: Clear to auscultation, Normal air movement, No rhonchi, No wheeze, No rales Cardiovascular: Regular rate, Regular Rhythm, Normal S1, Normal S2, No murmurs Abdomen: Soft, Non Tender, Non-Distended, No Hepato-splenomegaly Extremities: No edema, Capillary Refill Less than 3 Seconds Skin: No rashes, No breakdown Musculoskeletal: No Tenderness to Palpation of Joints or Extremities Neurological: No focal neurological deficits, Motor Exam 5/5 strength throughout, Sensory exam intact to light touch and pain Psych/Mental Status: Normal Affect, Appropriate Weight / BMI Weight Weight: 275 lb Body Mass Index (BMI) 41.8 ABG / Lab / Microbiology Data 04/06/25 04:22 04/06/25 04:22 Laboratory: Laboratory Results - last 24 hr 04/05/25 16:20: PT Cancelled, INR Cancelled, APTT Cancelled, Sodium 139, Potassium 5.1, Chloride 109 H, Carbon Dioxide 19.8 L, Anion Gap 10, BUN 20 H, Creatinine 1.23 H, Est GFR (MDRD) Non-Af 52 L, BUN/Creatinine Ratio 16.5, Glucose 117 H, Lactic Acid < 1.0, Calcium 8.8, Total Bilirubin 0.47, AST 24, ALT 13, Alkaline Phosphatase 77, Total Protein 7.4, Albumin 3.5, Globulin 3.9, Albumin/Globulin Ratio 0.9 04/05/25 17:00: PT 16.0 H, INR 1.3, APTT 31.3, Urine Color Yellow, Urine Clarity Sl. Cloudy, Urine pH 6.0, Ur Specific [place] 1.015, Urine Protein 30 H, Urine Glucose (UA) Normal, Urine Ketones Negative, Urine Occult Blood 10 H, Urine Nitrite Negative, Urine Bilirubin Negative, Urine Urobilinogen Normal, Ur Leukocyte Esterase Negative, Urine RBC 0-5 SEEN, Urine WBC 0-5 SEEN, Ur Squamous Epith Cells 10-25 SEEN, Urine Bacteria 0 SEEN, Urine Mucus 2+, Urine Yeast 2+ 04/05/25 22:43: POC Glucose 276 H 04/06/25 04:22: WBC 6.6, RBC 3.76 L, Hgb 11.4 L, Hct 34.3 L, MCV 91.2, MCH 30.3, MCHC 33.2, RDW Std Deviation 42.8, RDW Coeff of Frannie 12.9, Plt Count 114 L, MPV 10.6, Sodium 137, Potassium 4.5, Chloride 109 H, Carbon Dioxide 18.4 L, Anion Gap 10, BUN 17, Creatinine 0.97, Estim Creat Clear Calc 90.21, Est GFR (MDRD) Non-Af 69, BUN/Creatinine Ratio 17.9, Glucose 108 H, Calcium 8.5 04/06/25 05:54: POC Glucose 116 H Microbiology: Microbiology 04/05/25 17:00 Urine, Clean Catch Urine Culture - Preliminary Culture exhibits no growth. Radiography Diagnostic Testing: Radiology Impression Renal Ultrasound 04/05/25 16:53 IMPRESSION: No hydronephrosis. Reading Location: [facility] D/C Instructions Discharge Diet: Low fat / Low cholesterol and Carb Control Diet Call your doctor if you observe: Fever of 101 or Higher, Shortness of breath, Dizziness, Fainting spells, Swelling in the ankles, Chest pain and Increased palpitations (irregular heartbeat) DC O2, CPAP, BIPAP Needs Home O2 Discharge instructions: No Meaningful Use Info Meaningful Use Meaningful Use Diagnoses (Choose all that apply): None applicable Ischemic Stroke Statin Dosing Therapy Reference: STATIN DOSE THERAPY REFERENCE: * Patients > 75 years receive moderate or high dose statin therapy. * Patients 75 years or YOUNGER should receive HIGH intensity statin dose unless contraindicated. You will be required to document reason for non-treatment if statin daily dose does not meet guidelines. HIGH DOSE STATIN THERAPY DAILY Atorvastatin > than or = to 40 mg Rosuvastatin > than or = to 20 mg Amlodipine + Atorvastatin > than or = to 2.5/40 mg Ezetimibe + Simvastatin 10/80 mg Simvastatin 80mg Discharge Plan Admission Admit Date/Time: 04/05/25 17:46 Attending Provider: Carlo Barrios Primary Care Provider: Clifford Sarmiento Consulting Providers: Jay Jay Torres Discharge Orders/Prescriptions Prescriptions: New fosfomycin tromethamine 3 gram packet 1 packet PO QODAY Qty: 3 0RF Continued albuterol sulfate 2.5 mg /3 mL (0.083 %) solution for nebulization 2.5 mg inhalation Q4H PRN (Reason: bronchospasm) albuterol sulfate 90 mcg/actuation HFA aerosol inhaler 2 puff inhalation Q6H PRN (Reason: asthma) cyclobenzaprine 10 mg tablet 10 mg PO TID PRN (Reason: muscle spasm) gabapentin 600 mg tablet 600 mg PO BID hydrocodone-acetaminophen 7.5-325 mg tablet 1 tab PO Q6H PRN (Reason: back pain) omeprazole 20 mg tablet,delayed release (DR/EC) 20 mg PO BID PRN (Reason: acid reflux) insulin glargine [Lantus Solostar U-100 Insulin] 100 unit/mL (3 mL) insulin pen 18 unit subcut QPM lisinopril 40 mg tablet 40 mg PO QDAY atorvastatin 40 mg tablet 40 mg PO QHS clopidogrel 75 mg tablet 75 mg PO QDAY amlodipine 10 mg tablet 10 mg PO QDAY furosemide 40 mg tablet 40 mg PO QDAY Qty: 90 3RF potassium chloride 20 mEq tablet extended release 20 meq PO QDAY Qty: 90 3RF loratadine 10 mg tablet 10 mg PO DAILY PRN (Reason: allergies) metoprolol tartrate 25 mg tablet 50 mg PO BID Referrals / Follow Up: Clifford Sarmiento DO [Primary Care Provider] - Within 1 Week (We tried to call the office, but the office is closed on Wednesdays. The patient will need to contact the office tomorrow.) Disposition Disposition (needs filled in before D/C Order can be placed): Home, Self Care Charges/Coding Visit Charges Inpatient E&M: 23879 Disch Hosp >30min
== END 2025-04-06 12:41 | disposition home or self-care (01) | DRG 463 ==
LOC: ED 17:51 → MS3 04-06 06:04
PROVIDERS: Admitting Provider Hospitalist; Emergency Provider Emergency Medicine; PCP Family Medicine; Visit Provider Family Medicine
DX: N39.0 Urinary tract infection, site not specified (principal); E66.813 Obesity, class 3; Z68.41 Body mass index [BMI] 40.0-44.9, adult; E11.40 Type 2 diabetes mellitus with diabetic neuropathy, unspecified; E11.22 Type 2 diabetes mellitus with diabetic chronic kidney disease; B96.20 Unspecified Escherichia coli [E. coli] as the cause of diseases classified elsewhere; D64.9 Anemia, unspecified; I12.9 Hypertensive chronic kidney disease with stage 1 through stage 4 chronic kidney disease, or unspecified chronic kidney disease; I70.1 Atherosclerosis of renal artery; J45.909 Unspecified asthma, uncomplicated; E78.5 Hyperlipidemia, unspecified; E87.5 Hyperkalemia; K21.9 Gastro-esophageal reflux disease without esophagitis; M54.50 Low back pain, unspecified; F17.290 Nicotine dependence, other tobacco product, uncomplicated; G89.29 Other chronic pain; Z79.02 Long term (current) use of antithrombotics/antiplatelets; Z79.51 Long term (current) use of inhaled steroids; Z79.899 Other long term (current) drug therapy; R39.89 Other symptoms and signs involving the genitourinary system; N18.9 Chronic kidney disease, unspecified; Z16.12 Extended spectrum beta lactamase (ESBL) resistance
CPT/HCPCS: 36415; 74176; 76770; 80048; 80053; 81001; 82962; 83605; 85025; 85027; 85610; 85730; 87040; 87077; 87086; 87088; 87186; 94668; 96360; 96361; 96365; 96366; 99221; 99283; 99285; 99406; J2185; A4216; G0378